=== PATIENT | male | born 1960 | race Caucasian/White ===

== ENCOUNTER 2020-01-06 09:32 | Outpatient (REF) | payer OTHER, SELFPAY ==
[2020-01-06 11:06] LABS: Alanine Aminotransferase 67 U/L (0-40); Albumin Level 4.5 g/dL (3.5-5.0); Alkaline Phosphatase 61 U/L (39-117); Anion Gap 10 (12-20); Aspartate Amino Transferase 50 U/L (5-37); Bilirubin Total 0.4 mg/dL (0.0-1.0); Blood Urea Nitrogen 7 mg/dL (9-16); Calcium 9.9 mg/dL (8.4-10.2); Carbon Dioxide 32 mmol/L (22-29); Chloride 104 mmol/L (96-108); Cholesterol 158 mg/dL; Estimated Glomerular Filt Rate > 60; Glucose Fasting 125 mg/dL (60-99); HDL Cholesterol 34 mg/dL; LDL Cholesterol Calculated 87 mg/dl; Potassium 4.9 mmol/l (3.3-5.1); Sodium 141 mmol/L (135-145); Total Protein 7.3 g/dL (6.5-8.0); Triglycerides 186 mg/dL
[2020-01-06 11:42] LABS: Prostate Specific Antigen 4.89 ng/mL (<0.05-4.0)
[2020-01-06 12:07] LABS: Glucose Urine UA NEG (NEG); Leukocyte Esterase Urine NEG (NEG); Nitrite Urine NEG (NEG); Urine Blood NEG (NEG); Urine Ketones NEG (NEG); Urine Protein NEG (NEG-TRACE)
[2020-01-06 12:18] LABS: Appearance Urine CLEAR; Color Urine YELLOW
== END 2020-01-06 09:33 | disposition home or self-care (01) ==
LOC: HO.LAB 09:32
PROVIDERS: PCP Internal Medicine; Visit Provider Internal Medicine
DX: E66.1 Drug-induced obesity (principal); Z00.00 Encounter for general adult medical examination without abnormal findings; E78.6 Lipoprotein deficiency; D72.820 Lymphocytosis (symptomatic); C18.9 Malignant neoplasm of colon, unspecified; E83.52 Hypercalcemia; E78.00 Pure hypercholesterolemia, unspecified; K21.00 Gastro-esophageal reflux disease with esophagitis, without bleeding; Z86.711 Personal history of pulmonary embolism; Z13.31 Encounter for screening for depression; N40.0 Benign prostatic hyperplasia without lower urinary tract symptoms
CPT/HCPCS: 80053; 80061; 81003; 84153

== ENCOUNTER 2020-01-20 07:56 | Outpatient (REF) | payer OTHER, SELFPAY ==
--- NOTE | 2020-01-20 08:01 | US_ITS ---
EXAMINATION: US RETROPERITONEAL LIMITED (RENAL ONLY) CLINICAL INFORMATION: Malignant neoplasm of right kidney. COMPARISON: Renal ultrasound 07/22/2019. CT abdomen 04/02/2019. Ultrasound abdomen complete 07/16/2018. X-ray abdomen 03/12/2012 and 03/10/2012. MRI abdomen 02/15/2012. TECHNIQUE: Real-time imaging of the kidneys. FINDINGS: RIGHT KIDNEY: 11.5 x 5.4 x 5.3 cm (SAG x AP x TRV). The kidney is normal in size, contour, and echogenicity. Renal cortical thickness is normal. No calculi or focal parenchymal lesions. No hydronephrosis. There are multiple echogenic foci, likely vascular calcifications. LEFT KIDNEY: 12.1 x 6.9 x 7.0 cm (SAG x AP x TRV). The kidney is normal in size, contour, and echogenicity. Renal cortical thickness is normal. No calculi or focal parenchymal lesions. No hydronephrosis. There are multiple echogenic foci, question vascular calcifications. US/US renal BI IMPRESSION: Unremarkable renal ultrasound except for multiple echogenic vascular calcifications.
== END 2020-01-20 07:57 | disposition home or self-care (01) ==
LOC: HO.US 07:56
PROVIDERS: Visit Provider Urology
DX: C64.1 Malignant neoplasm of right kidney, except renal pelvis (principal)
CPT/HCPCS: 76775

== ENCOUNTER 2020-01-20 12:41 | Emergency (ER) | payer OTHER, SELFPAY ==
--- NOTE | 2020-01-20 12:43 | ED.CHESTPAIN ---
HPI - Chest Pain General Chief Complaint: Chest Pain Stated Complaint: CP Time Seen by Provider: 01/20/20 12:43 Source: patient and EMS Mode of arrival: EMS Limitations: no limitations History of Present Illness MD complaint: chest pain Onset (ago): hour(s) (started at 630am) Timing of current episode: constant Prior episodes: No Onset: during rest Pain location: left chest Pain radiation: left arm Severity: moderate Quality: heaviness Relieving factors: nothing Exacerbating factors: nothing Treatment prior to arrival: aspirin Related Data Allergies Allergy/AdvReac Type Severity Reaction Status Date / Time haloperidol [From HALDOL] Allergy Unknown UNKNOWN Unverified 12/03/19 15:27 Helidac Allergy Unknown seizure Uncoded 07/28/19 00:00 and stiffness Review of Systems Review of Systems: Constitutional : No Weight loss, No Fever, No Chills ENT/Mouth : No sore throat, No Rhinorrhea Eyes: No Eye Pain, No Swelling Cardiovascular : pos Chest Pain, no SOB, no Dyspnea on Exertion, No Orthopnea, No Edema, No Palpitations Respiratory : No Cough, No Sputum Gastrointestinal : pos Nausea, No Vomiting, No Diarrhea, No abdominal Pain, No Hematochezia, No Melena Genitourinary : No Dysuria, No Urinary Frequency Musculoskeletal : No joint pain, No Myalgias, No Joint Swelling Skin : No Skin Lesions, No rash Neuro : No Weakness, No Numbness, No Dizziness, No Headache Psych : No Anxiety/Panic, No Depression Heme/Lymph: No Bruising, No Lymphadenopathy Endocrine : No Polyuria, No Polydipsia All other systems reviewed and are negative [facility] Past Medical History Attestation statement: The following information was validated with the patient. Source: old records reviewed Medical History (Updated 01/20/20 @ 16:03 by Hoa Cain DO) Depression GERD (gastroesophageal reflux disease) Hernia HTN (hypertension) Schizophrenia Social History Social History (Updated 01/20/20 @ 12:45 by Hoa Cain DO) Alcohol intake: never Smoking Status: Never smoker Use of substances other than those prescribed or required for medical reasons: No Advance Directives: Yes Advance Directives Information Provided: Yes Advance Directives on File: No Physical Exam Vital Signs: Vital Signs: Vital Signs Temp Pulse Resp BP Pulse Ox 01/20/20 14:09 59 16 104/66 97 01/20/20 12:48 98.6 F 55 18 124/76 100 Body Mass Index 28.8 Appearance: Alert. Oriented X3. No acute distress. Eyes: Pupils equal, round and reactive to light. ENT: Pharynx normal. Neck: Normal inspection. Neck supple. CVS: Normal heart rate and rhythm. Pulses normal. Respiratory: No respiratory distress. Breath sounds normal. Abdomen: Soft and nontender. Skin: Skin warm and dry. Normal skin color. Normal skin turgor. Extremities: No lower extremity edema. No calf ttp Neuro: Oriented X 3. No motor deficit. No sensory deficit. Course Course Course Narrative: if repeat troponin negative anticipate DC home, in no distress MDM - Chest Pain MDM Narrative Medical decision making narrative: 59 yo male with hx of schizophrenia here with chest pain since 6am no associated symptoms given ASA en route, no hypoxia/tachycardia or signs of DVT to suggest PE at this time will obtain labs, EKG, CXR, troponin, SL nitro - dispo per results and findings Lab Data Result diagrams: 01/20/20 13:28 01/20/20 13:28 Labs: Lab Results 01/20/20 01/20/20 01/20/20 Range/Units 13:28 13:28 13:28 WBC 8.9 (4.8-10.8) X10*3/uL RBC 4.23 L (4.60-5.80) X10*6/uL Hgb 13.0 L (14.0-18.0) g/dl Hct 41.9 L (42-52) % MCV 99.1 H (80-98) fL MCH 30.7 (27.0-33.0) pg MCHC 31.0 (31.0-36.0) g/dl RDW 13.5 (11.0-16.0) % Plt Count 192 (160-400) X10*3/uL MPV 9.2 L (9.4-12.4) fL Immature Gran % (Auto) 0.2 (0.0-0.4) % Neut % (Auto) 58.9 (45-73) % Lymph % (Auto) 29.4 (20-40) % [place] % (Auto) 7.0 (2-11) % Eos % (Auto) 4.1 H (0-4) % Baso % (Auto) 0.4 (0-2) % Lymph # (Auto) 2.6 (1.2-4.9) X10*3/uL [place] # (Auto) 0.6 (0.1-1.2) X10*3/uL Eos # (Auto) 0.4 (0.0-0.4) X10*3/uL Baso # (Auto) 0.0 (0.0-0.2) X10*3/uL Abs Immat Gran (auto) 0.02 (0.00-0.03) X10*3/uL Absolute Neuts (auto) 5.3 (2.0-8.3) X10*3/uL Absolute Nucleated RBC 0.000 (0.0-0.012) X10*3/uL Nucleated RBC % (auto) 0.0 (0.0-0.2) /100WBC Hold Blue Top SEE NOTE Sodium 139 (135-145) mmol/L Potassium 4.6 (3.3-5.1) mmol/l Chloride 104 (96-108) mmol/L Carbon Dioxide 29 (22-29) mmol/L Anion Gap 11 L (12-20) BUN 8 L (9-16) mg/dL Creatinine 1.03 (0.5-1.4) mg/dL Estim Creat Clear Calc 83.4 Estimated GFR > 60 Random Glucose 92 (60-115) mg/dL Calcium 8.8 (8.4-10.2) mg/dL Magnesium (1.6-2.6) mg/dL Total Bilirubin (0.0-1.0) mg/dL Direct Bilirubin (0.0-0.5) mg/dL AST (5-37) U/L ALT (0-40) U/L Alkaline Phosphatase (39-117) U/L Troponin I High Sens (<3.5-35.0) ng/L Total Protein (6.5-8.0) g/dL Albumin (3.5-5.0) g/dL Lipase 28 (8-78) U/L 01/20/20 01/20/20 01/20/20 Range/Units 13:28 13:28 15:46 WBC (4.8-10.8) X10*3/uL RBC (4.60-5.80) X10*6/uL Hgb (14.0-18.0) g/dl Hct (42-52) % MCV (80-98) fL MCH (27.0-33.0) pg MCHC (31.0-36.0) g/dl RDW (11.0-16.0) % Plt Count (160-400) X10*3/uL MPV (9.4-12.4) fL Immature Gran % (Auto) (0.0-0.4) % Neut % (Auto) (45-73) % Lymph % (Auto) (20-40) % [place] % (Auto) (2-11) % Eos % (Auto) (0-4) % Baso % (Auto) (0-2) % Lymph # (Auto) (1.2-4.9) X10*3/uL [place] # (Auto) (0.1-1.2) X10*3/uL Eos # (Auto) (0.0-0.4) X10*3/uL Baso # (Auto) (0.0-0.2) X10*3/uL Abs Immat Gran (auto) (0.00-0.03) X10*3/uL Absolute Neuts (auto) (2.0-8.3) X10*3/uL Absolute Nucleated RBC (0.0-0.012) X10*3/uL Nucleated RBC % (auto) (0.0-0.2) /100WBC Hold Blue Top Sodium (135-145) mmol/L Potassium (3.3-5.1) mmol/l Chloride (96-108) mmol/L Carbon Dioxide (22-29) mmol/L Anion Gap (12-20) BUN (9-16) mg/dL Creatinine (0.5-1.4) mg/dL Estim Creat Clear Calc Estimated GFR Random Glucose (60-115) mg/dL Calcium (8.4-10.2) mg/dL Magnesium 2.6 (1.6-2.6) mg/dL Total Bilirubin 0.7 (0.0-1.0) mg/dL Direct Bilirubin 0.3 (0.0-0.5) mg/dL AST 36 (5-37) U/L ALT 59 H (0-40) U/L Alkaline Phosphatase 55 (39-117) U/L Troponin I High Sens < 3.5 < 3.5 (<3.5-35.0) ng/L Total Protein 7.0 (6.5-8.0) g/dL Albumin 4.4 (3.5-5.0) g/dL Lipase (8-78) U/L ECG Data ECG #1: Attestation: I personally reviewed and interpreted this ECG as follows: ECG interpretation date: 01/20/20 ECG interpretation time: 12:52 Interpretation: Rate: 58 Rhythm: sinus bradycardia [place]: left Normal P waves. Normal MIC. RBBB ST T wave : nonspecific qTC: normal prior studies: no change 2018 no ischemia The study has been interpreted contemporaneously by me. . Discharge Plan Discharge Clinical Impression: Atypical chest pain Patient Disposition: Home, Self-Care Instructions: Chest Pain (ED) Additional Instructions: return to ED for any worsening symptoms or concerns Referrals: Angelo Higginbotham MD [Primary Care Provider] - 2 days (if not better)
[2020-01-20 12:48] VITALS: BP 124/76; PULSE 55; RESP 18; TEMP 37; O2SAT 100; BMI 28.8
--- NOTE | 2020-01-20 12:51 | XR_ITS ---
EXAMINATION: XR CHEST CLINICAL INFORMATION: Pain. COMPARISON: None TECHNIQUE: Frontal view of the chest was obtained. FINDINGS: The lungs are well-expanded and clear of acute process. The heart size and pulmonary vasculature is normal. There is mild spondylosis dorsal spine. No lytic process seen. XR/XR chest 1V IMPRESSION: No acute cardiopulmonary process seen.
[2020-01-20 13:36] LABS: MANUAL DIFF FLAG NO
[2020-01-20 13:38] LABS: Basophils Percent Auto 0.4 % (0-2); Eosinophils Absolute Auto 0.4 X10*3/uL (0.0-0.4); Eosinophils Percent Auto 4.1 % (0-4); Hematocrit 41.9 % (42-52); Imm Gran Abs Auto 0.02 X10*3/uL (0.00-0.03); Imm Gran Pct Auto 0.2 % (0.0-0.4); Lymphocytes Absolute Auto 2.6 X10*3/uL (1.2-4.9); Lymphocytes Percent Auto 29.4 % (20-40); Mean Corpuscular Hemoglobin 30.7 pg (27.0-33.0); Mean Corpuscular Volume 99.1 fL (80-98); Mean Platelet Volume 9.2 fL (9.4-12.4); Monocytes Absolute Auto 0.6 X10*3/uL (0.1-1.2); Neutrophils Absolute Auto 5.3 X10*3/uL (2.0-8.3); Neutrophils Percent Auto 58.9 % (45-73); Platelet Count 192 X10*3/uL (160-400); Red Blood Count 4.23 X10*6/uL (4.60-5.80); Red Cell Distribution Width 13.5 % (11.0-16.0); White Blood Count 8.9 X10*3/uL (4.8-10.8)
[2020-01-20 14:07] LABS: Alanine Aminotransferase 59 U/L (0-40); Albumin Level 4.4 g/dL (3.5-5.0); Alkaline Phosphatase 55 U/L (39-117); Aspartate Amino Transferase 36 U/L (5-37); Bilirubin Direct 0.3 mg/dL (0.0-0.5); Bilirubin Total 0.7 mg/dL (0.0-1.0); Magnesium 2.6 mg/dL (1.6-2.6)
[2020-01-20 14:08] LABS: Anion Gap 11 (12-20); Blood Urea Nitrogen 8 mg/dL (9-16); Calcium 8.8 mg/dL (8.4-10.2); Carbon Dioxide 29 mmol/L (22-29); Chloride 104 mmol/L (96-108); Creatinine Clr Calc Pharmacy 83.4; Estimated Glomerular Filt Rate > 60; Glucose Random 92 mg/dL (60-115); Lipase 28 U/L (8-78); Potassium 4.6 mmol/l (3.3-5.1); Sodium 139 mmol/L (135-145)
[2020-01-20 14:09] VITALS: BP 104/66; PULSE 59; RESP 16; O2SAT 97
[2020-01-20 14:09] LABS: Troponin-I High Sensitivity < 3.5 ng/L (<3.5-35.0)
--- NOTE | 2020-01-20 14:32 | PC.NURSE ---
Phone Number Worker: Lucita [phone] for discharge orange picker
[2020-01-20] MEDS: Acetaminophen 325 MG TABLET 650 MG PO (15:32)
[2020-01-20 16:19] LABS: Troponin-I High Sensitivity < 3.5 ng/L (<3.5-35.0)
--- NOTE | 2020-01-21 | ECG_ITS ---
Test Reason : CHEST PAIN Blood Pressure : / mmHG Vent. 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 rate has decreased BY 52 BPM QRS duration has increased Referred By: Hoa Cain Electronically Signed By:SHANICE LLANES MD
== END 2020-01-20 16:41 | disposition home or self-care (01) ==
PROVIDERS: Emergency Provider Emergency Medicine; PCP Internal Medicine
DX: R07.9 Chest pain, unspecified (principal); M79.602 Pain in left arm
CPT/HCPCS: 36415; 71045; 80048; 80076; 83690; 83735; 84484; 85025; 93005; 96374; 99284

== ENCOUNTER → 2020-01-28 10:58 | Outpatient (BNVA) | payer OTHER, SELFPAY | PROVIDERS: PCP Internal Medicine; Visit Provider Urology | DX: Z76.89 Persons encountering health services in other specified circumstances (principal) | CPT/HCPCS: 99212 ==

== ENCOUNTER 2020-04-04 11:02 | Outpatient (REF) | payer OTHER, SELFPAY ==
[2020-04-04 12:04] LABS: Lithium 0.28 mmol/L (0.60-1.20)
[2020-04-04 12:10] LABS: Anion Gap 11 (12-20); Blood Urea Nitrogen 8 mg/dL (9-16); Calcium 9.4 mg/dL (8.4-10.2); Carbon Dioxide 29 mmol/L (22-29); Chloride 106 mmol/L (96-108); Estimated Glomerular Filt Rate > 60; Glucose Random 85 mg/dL (60-115); Potassium 3.9 mmol/l (3.3-5.1); Sodium 142 mmol/L (135-145)
== END 2020-04-04 11:03 | disposition home or self-care (01) ==
LOC: HO.LAB 11:02
PROVIDERS: PCP Internal Medicine; Visit Provider Psychiatry & Neurology Psychiatry
DX: Z79.899 Other long term (current) drug therapy (principal)
CPT/HCPCS: 36415; 80048; 80178

== ENCOUNTER 2020-04-17 07:00 | Inpatient (IN) | payer OTHER, SELFPAY ==
[2020-04-17] VITALS (10 sets, daily range): BP systolic 109–124; BP diastolic 76–88; PULSE 73–97; RESP 18–24; TEMP 36.2–36.6; O2SAT 96–98
--- NOTE | ~2020-04-17 | XR_ITS ---
EXAMINATION: CHEST 1 VIEW CLINICAL INFORMATION: Fever. COMPARISON: 04/17/20. TECHNIQUE: An AP view of the chest is provided. FINDINGS: The cardiac silhouette is stable. The mediastinal and hilar contours are unremarkable. There are neither pleural effusions nor pneumothoraces. There are no consolidations. The osseous structures are stable. XR/XR chest 1V IMPRESSION: No evidence for acute disease.
--- NOTE | ~2020-04-17 | FL_ITS ---
EXAMINATION: XR BARIUM SWALLOW CLINICAL INFORMATION: History of esophageal stricture with swallowing difficulty COMPARISON: None TECHNIQUE: Modified esophagram with speech pathologist FINDINGS: Patient swallowed combination of consistencies from thin liquid to barium coated cookie. Patient swallowed without difficulty. There is no evidence of nasopharyngeal reflux or tracheal aspiration. No laryngeal penetration. FLUOROSCOPY TIME: 2.5 minutes DOSE AREA PRODUCT: 3.146 zulema per centimeter squared FL/FL barium swallow modified IMPRESSION: No significant abnormality identified on modified barium swallow. Please refer to speech pathology report for details.
--- NOTE | 2020-04-17 07:27 | XR_ITS ---
EXAMINATION: XR CHEST CLINICAL INFORMATION: Mental status change. COMPARISON: 01/20/2020 TECHNIQUE: AP portable view of the chest FINDINGS: Lungs are clear. No consolidation, pneumothorax, or pleural effusion. Cardiac and mediastinal contours are normal. Pulmonary vasculature is unremarkable. Osseous structures are unremarkable. XR/XR chest 1V IMPRESSION: No acute cardiopulmonary findings
--- NOTE | 2020-04-17 07:27 | ECG_ITS ---
Test Reason : MEDCLEARANCE Blood Pressure : / mmHG Vent. 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
--- NOTE | 2020-04-17 07:27 | CT_ITS ---
CT HEAD WITHOUT IV CONTRAST INDICATION: Altered mental status. COMPARISON: Brain MRI 01/16/2018. TECHNIQUE: Multidetector CT acquisitions of the head was obtained without IV contrast. This CT examination was performed using dose optimization techniques as appropriate, variously including the following: *Automated exposure control *Adjustment of mA and/or kV according to patient size (this includes techniques or standardized protocols for targeted exams where dose is matched to indication/reason for exam; i.e. extremities or head) *Use of iterative reconstruction technique FINDINGS: There is no intracranial hemorrhage, hydrocephalus, extra-axial surface collection, midline shift, or other herniation pattern. [place] to white matter differentiation is diffusely maintained without evidence of an evolved acute territorial infarct. The basilar cisterns are preserved. No significant soft tissue abnormality. No acute osseous abnormality. There are a few ethmoid air cells opacified bilaterally. There is mild mucosal thickening within the right maxillary sinus. Mild mucosal thickening within the frontal sinuses bilaterally. Mastoid air cells are clear. CT/CT head/brain wo con IMPRESSION: No acute intracranial findings. Sinus disease as described.
--- NOTE | 2020-04-17 07:30 | PC.NURSE ---
Pt arrived via ems speech rambling, tangential, pt alert, oriented x3, mood labile. Dr Gee in to evaluate.
--- NOTE | 2020-04-17 07:35 | ED_ITS ---
HPI - General Adult General Chief complaint: Psychiatric Symptoms Stated complaint: FOUND BY POLICE TALKING NONSENSE/RAMBLING Time Seen by Provider: 04/17/20 07:27 Source: patient and EMS Mode of arrival: EMS Limitations: altered mental status History of Present Illness HPI narrative: 60-year-old male with history of paraneoplastic syndrome, schizoaffective disorder, renal cell carcinoma, anemia, hyperammonemia. Patient was found wandering in the street arguing with himself, neighbors called the police who sent the patient to the ED, patient is awake and alert and oriented, patient speaks with pressured speech, not answering question appropriately, patient is hallucinating, [facility] and personnel who is familiar with the patient (seen him in a different facility) said he is all was acting like this if he is off his psych medicines (Depakote and lithium) Related Data Home Medications Medication Instructions Recorded Confirmed lithium carbonate 150 mg capsule 150 mg PO PRN 01/28/20 01/28/20 olanzapine 10 mg tablet 10 mg PO BEDTIME 01/28/20 01/28/20 trazodone 100 mg tablet 100 mg PO BEDTIME PRN 01/28/20 01/28/20 Previous Rx's Medication Instructions Recorded finasteride 5 mg tablet 5 mg PO DAILY 90 Days #90 tab 01/28/20 Allergies Allergy/AdvReac Type Severity Reaction Status Date / Time haloperidol [From HALDOL] Allergy Unknown UNKNOWN Unverified 12/03/19 15:27 Helidac Allergy Unknown seizure Uncoded 07/28/19 00:00 and stiffness Review of Systems Review of Systems: Yes Unobtainable due to mental status (Unable to obtain meaningful history.) [facility] Past Medical History Medical History Depression GERD (gastroesophageal reflux disease) Hernia HTN (hypertension) Schizophrenia Social History Social History Alcohol intake: never Smoking Status: Smoker, status unknown Use of substances other than those prescribed or required for medical reasons: No Advance Directives: No Advance Directives Information Provided: Yes Physical Exam Vital Signs: Vital Signs: Last Vital Signs Temp 97.3 F 04/17/20 07:56 Pulse 83 04/17/20 07:56 Resp 20 04/17/20 08:00 BP 115/88 04/17/20 07:56 Pulse Ox 97 04/17/20 07:56 Body Mass Index 0.0 Vital signs have been reviewed as normal and appeared to be correct. Blood pressure normal. Heart rate normal. Respiration rate normal. Temperature normal. Oxygen saturation normal. Appearance: Alert. Oriented. No acute distress. Head: Normal external exam. Normocephalic. Atraumatic. No Michelle signs noted. No raccoon eyes noted Eyes: PERRLA. EOMI. Conjunctiva and sclera normal. Eyelids normal. ENT: EAC normal. TM's Normal. Pharynx normal. Uvula midline. Moist mucous membranes. No trismus noted. No drooling noted. No muffled voice noted. Neck: Normal inspection. Neck supple. FROM. No adenopathy. Thyroid Normal. No meningeal signs. No neck mass noted. CVS: Normal heart rate and rhythm. Heart sound normal. No murmurs noted. Pulses normal throughout. Respiratory: No respiratory distress. Painless inspiration. Breath sounds normal. No wheezes/rales/rhonchi noted. Chest nontender. No accessory muscle usage noted or decreased air movement noted. Abdomen: Soft and nontender. Bowel sounds normal in all 4 quadrants. No distention noted. No organomegaly noted. No visible injury noted. Back: No CVA tenderness. Full range of motion noted. Skin: Skin warm and dry. Normal skin color. Normal skin turgor. No rashes/lesions/lacerations noted. Extremities: No lower extremity edema. Extremities exhibit normal range of motion. Extremities nontender. Neuro/psych: Oriented. No motor deficit. No sensory deficit. Reflexes normal., patient overall is not rational, speak with pressured speech, unable to give meaningful history. Course Course Course Narrative: 60-year-old male with history of schizoaffective disorder, patient presented after found in the street wandering, patient was acting psychotic feature, medical workup was unremarkable including head CT/chest x-ray/labs. [place] level was subtherapeutic way will load with 150 mg and request [facility] consultation. Medical Decision Making Lab Data Lab results reviewed: Yes I reviewed the patient's lab results. Result diagrams: 04/17/20 07:48 04/17/20 07:50 Labs: Lab Results 04/17/20 04/17/20 04/17/20 Range/Units 07:48 07:48 07:48 WBC 6.6 (4.8-10.8) X10*3/uL RBC 4.03 L (4.60-5.80) X10*6/uL Hgb 12.2 L (14.0-18.0) g/dl Hct 39.6 L (42-52) % MCV 98.3 H (80-98) fL MCH 30.3 (27.0-33.0) pg MCHC 30.8 L (31.0-36.0) g/dl RDW 14.8 (11.0-16.0) % Plt Count 181 (160-400) X10*3/uL MPV 9.6 (9.4-12.4) fL Immature Gran % (Auto) 0.2 (0.0-0.4) % Neut % (Auto) 67.9 (45-73) % Lymph % (Auto) 21.5 (20-40) % [place] % (Auto) 8.8 (2-11) % Eos % (Auto) 1.1 (0-4) % Baso % (Auto) 0.5 (0-2) % Lymph # (Auto) 1.4 (1.2-4.9) X10*3/uL [place] # (Auto) 0.6 (0.1-1.2) X10*3/uL Eos # (Auto) 0.1 (0.0-0.4) X10*3/uL Baso # (Auto) 0.0 (0.0-0.2) X10*3/uL Abs Immat Gran (auto) 0.01 (0.00-0.03) X10*3/uL Absolute Neuts (auto) 4.5 (2.0-8.3) X10*3/uL Absolute Nucleated RBC 0.000 (0.0-0.012) X10*3/uL Nucleated RBC % (auto) 0.0 (0.0-0.2) /100WBC Sodium (135-145) mmol/L Potassium (3.3-5.1) mmol/L Chloride (96-108) mmol/L Carbon Dioxide (22-29) mmol/L Anion Gap (12-20) BUN (9-16) mg/dL Creatinine (0.5-1.4) mg/dL Estim Creat Clear Calc Estimated GFR Random Glucose (60-115) mg/dL Calcium (8.4-10.2) mg/dL Magnesium Total Bilirubin (0.0-1.0) mg/dL Direct Bilirubin (0.0-0.5) mg/dL AST (5-37) U/L ALT (0-40) U/L Alkaline Phosphatase (39-117) U/L Ammonia 33 (13-55) umol/L Troponin I High Sens < 3.5 (<3.5-35.0) ng/L B-Natriuretic Peptide 18 (<100) pg/mL Total Protein (6.5-8.0) g/dL Albumin (3.5-5.0) g/dL Lipase (8-78) U/L Valproic Acid (50.0-100.0) mcg/mL [place] (0.60-1.20) mmol/L Ethyl Alcohol mg/dL COVID-19 ([facility]AVAL) (Negative) COVID-19 Clin Com 04/17/20 04/17/20 04/17/20 Range/Units 07:49 07:49 07:49 WBC (4.8-10.8) X10*3/uL RBC (4.60-5.80) X10*6/uL Hgb (14.0-18.0) g/dl Hct (42-52) % MCV (80-98) fL MCH (27.0-33.0) pg MCHC (31.0-36.0) g/dl RDW (11.0-16.0) % Plt Count (160-400) X10*3/uL MPV (9.4-12.4) fL Immature Gran % (Auto) (0.0-0.4) % Neut % (Auto) (45-73) % Lymph % (Auto) (20-40) % [place] % (Auto) (2-11) % Eos % (Auto) (0-4) % Baso % (Auto) (0-2) % Lymph # (Auto) (1.2-4.9) X10*3/uL [place] # (Auto) (0.1-1.2) X10*3/uL Eos # (Auto) (0.0-0.4) X10*3/uL Baso # (Auto) (0.0-0.2) X10*3/uL Abs Immat Gran (auto) (0.00-0.03) X10*3/uL Absolute Neuts (auto) (2.0-8.3) X10*3/uL Absolute Nucleated RBC (0.0-0.012) X10*3/uL Nucleated RBC % (auto) (0.0-0.2) /100WBC Sodium (135-145) mmol/L Potassium (3.3-5.1) mmol/L Chloride (96-108) mmol/L Carbon Dioxide (22-29) mmol/L Anion Gap (12-20) BUN (9-16) mg/dL Creatinine (0.5-1.4) mg/dL Estim Creat Clear Calc Estimated GFR Random Glucose (60-115) mg/dL Calcium (8.4-10.2) mg/dL Magnesium Cancelled Total Bilirubin (0.0-1.0) mg/dL Direct Bilirubin (0.0-0.5) mg/dL AST (5-37) U/L ALT (0-40) U/L Alkaline Phosphatase (39-117) U/L Ammonia (13-55) umol/L Troponin I High Sens (<3.5-35.0) ng/L B-Natriuretic Peptide (<100) pg/mL Total Protein (6.5-8.0) g/dL Albumin (3.5-5.0) g/dL Lipase (8-78) U/L Valproic Acid 77.1 (50.0-100.0) mcg/mL [place] < 0.10 L (0.60-1.20) mmol/L Ethyl Alcohol < 10 mg/dL COVID-19 ([facility]AVAL) (Negative) COVID-19 Clin Com 04/17/20 04/17/20 04/17/20 Range/Units 07:50 07:50 07:52 WBC (4.8-10.8) X10*3/uL RBC (4.60-5.80) X10*6/uL Hgb (14.0-18.0) g/dl Hct (42-52) % MCV (80-98) fL MCH (27.0-33.0) pg MCHC (31.0-36.0) g/dl RDW (11.0-16.0) % Plt Count (160-400) X10*3/uL MPV (9.4-12.4) fL Immature Gran % (Auto) (0.0-0.4) % Neut % (Auto) (45-73) % Lymph % (Auto) (20-40) % [place] % (Auto) (2-11) % Eos % (Auto) (0-4) % Baso % (Auto) (0-2) % Lymph # (Auto) (1.2-4.9) X10*3/uL [place] # (Auto) (0.1-1.2) X10*3/uL Eos # (Auto) (0.0-0.4) X10*3/uL Baso # (Auto) (0.0-0.2) X10*3/uL Abs Immat Gran (auto) (0.00-0.03) X10*3/uL Absolute Neuts (auto) (2.0-8.3) X10*3/uL Absolute Nucleated RBC (0.0-0.012) X10*3/uL Nucleated RBC % (auto) (0.0-0.2) /100WBC Sodium 142 (135-145) mmol/L Potassium 4.3 (3.3-5.1) mmol/L Chloride 105 (96-108) mmol/L Carbon Dioxide 23 (22-29) mmol/L Anion Gap 18 (12-20) BUN 19 H D (9-16) mg/dL Creatinine 1.20 (0.5-1.4) mg/dL Estim Creat Clear Calc TNP Estimated GFR > 60 Random Glucose 114 (60-115) mg/dL Calcium 9.8 Cancelled (8.4-10.2) mg/dL Magnesium 2.3 Total Bilirubin 0.7 (0.0-1.0) mg/dL Direct Bilirubin 0.4 (0.0-0.5) mg/dL AST 41 H (5-37) U/L ALT 40 (0-40) U/L Alkaline Phosphatase 56 (39-117) U/L Ammonia (13-55) umol/L Troponin I High Sens (<3.5-35.0) ng/L B-Natriuretic Peptide (<100) pg/mL Total Protein 7.7 (6.5-8.0) g/dL Albumin 4.9 (3.5-5.0) g/dL Lipase 19 (8-78) U/L Valproic Acid (50.0-100.0) mcg/mL [place] (0.60-1.20) mmol/L Ethyl Alcohol mg/dL COVID-19 ([facility]AVAL) Negative (Negative) COVID-19 Clin Com See Note Imaging Data Chest x-ray: Radiologist's impression: In the acute cardiopulmonary findings. CT scan - head: Radiologist's impression: No acute pathology. ECG Data Interpretation: Normal sinus rhythm with sinus arrhythmia at 72 beats per minutes, left axis deviation, right bundle-branch block, no ischemic ST-T changes. Discharge Plan Discharge Clinical Impression: Acute psychosis Prescriptions: No Action trazodone 100 mg tablet 100 mg PO BEDTIME PRN (Reason: insomnia) RF: 0 lithium carbonate 150 mg capsule 150 mg PO PRNRF: 0 olanzapine 10 mg tablet 10 mg PO BEDTIME RF: 0 finasteride 5 mg tablet 5 mg PO DAILY 90 Days Qty: 90 RF: 1
[2020-04-17 07:58] LABS: MANUAL DIFF FLAG NO
[2020-04-17 08:00] LABS: Basophils Percent Auto 0.5 % (0-2); Eosinophils Absolute Auto 0.1 X10*3/uL (0.0-0.4); Eosinophils Percent Auto 1.1 % (0-4); Hematocrit 39.6 % (42-52); Hemoglobin 12.2 g/dl (14.0-18.0); Imm Gran Abs Auto 0.01 X10*3/uL (0.00-0.03); Imm Gran Pct Auto 0.2 % (0.0-0.4); Lymphocytes Absolute Auto 1.4 X10*3/uL (1.2-4.9); Lymphocytes Percent Auto 21.5 % (20-40); Mean Corpuscular HGB Conc 30.8 g/dl (31.0-36.0); Mean Corpuscular Hemoglobin 30.3 pg (27.0-33.0); Mean Corpuscular Volume 98.3 fL (80-98); Mean Platelet Volume 9.6 fL (9.4-12.4); Monocytes Absolute Auto 0.6 X10*3/uL (0.1-1.2); Monocytes Percent Auto 8.8 % (2-11); Neutrophils Absolute Auto 4.5 X10*3/uL (2.0-8.3); Neutrophils Percent Auto 67.9 % (45-73); Platelet Count 181 X10*3/uL (160-400); Red Blood Count 4.03 X10*6/uL (4.60-5.80); Red Cell Distribution Width 14.8 % (11.0-16.0); White Blood Count 6.6 X10*3/uL (4.8-10.8)
[2020-04-17 08:14] LABS: COVID-19 Test Negative (Negative)
[2020-04-17 08:16] LABS: Ammonia 33 umol/L (13-55)
[2020-04-17 08:22] LABS: Ethanol < 10 mg/dL
--- NOTE | 2020-04-17 08:24 | PC.NURSE ---
Pt to ct scan w/ security and [facility]
[2020-04-17 08:27] LABS: Alanine Aminotransferase 40 U/L (0-40); Albumin Level 4.9 g/dL (3.5-5.0); Alkaline Phosphatase 56 U/L (39-117); Anion Gap 18 (12-20); Aspartate Amino Transferase 41 U/L (5-37); Bilirubin Direct 0.4 mg/dL (0.0-0.5); Bilirubin Total 0.7 mg/dL (0.0-1.0); Blood Urea Nitrogen 19 mg/dL (9-16); Calcium 9.8 mg/dL (8.4-10.2); Carbon Dioxide 23 mmol/L (22-29); Chloride 105 mmol/L (96-108); Estimated Glomerular Filt Rate > 60; Glucose Random 114 mg/dL (60-115); Lipase 19 U/L (8-78); Magnesium 2.3 mg/dL (1.6-2.6); Potassium 4.3 mmol/L (3.3-5.1); Sodium 142 mmol/L (135-145); Total Protein 7.7 g/dL (6.5-8.0)
[2020-04-17 08:28] LABS: B Type Natriuretic Peptide 18 pg/mL (<100); Troponin-I High Sensitivity < 3.5 ng/L (<3.5-35.0)
[2020-04-17 08:42] LABS: Valproate 77.1 mcg/mL (50.0-100.0)
[2020-04-17 08:56] LABS: Lithium < 0.10 mmol/L (0.60-1.20)
--- NOTE | 2020-04-17 09:04 | PC.NURSE ---
Pt sitting in room, conversing with himself. [facility] faxed.
[2020-04-17] MEDS: OLANZapine 10 MG TABLET PO ×2 (09:35→20:04)
[2020-04-17] MEDS: Lithium Carbonate 300 MG TABLET 150 MG PO (09:35)
--- NOTE | 2020-04-17 09:48 | PC.NURSE ---
Pt in room, conversing out loud. Pt aware that he is in the ED, awaiting crisis and expressed some relief at that fact. Pt cooperative w/ medications, states he has not slept x4 days.
--- NOTE | 2020-04-17 09:49 | PC.NURSE ---
[facility] clinician aware that pt is in ED- unable to get through to [facility] on telephone.
--- NOTE | 2020-04-17 09:54 | PC.NURSE ---
Reached N to confirm receipt of fax.
--- NOTE | 2020-04-17 11:46 | PC.NURSE ---
Pt seen by JAS. Currently in room, talking out loud.
--- NOTE | 2020-04-17 11:58 | PC.NURSE ---
Pt in room, talking to himself. At times loud, speaking in different pitches, high to regular. Pt redirectable when loud.
--- NOTE | 2020-04-17 13:36 | PC.NURSE ---
Pt transferred to room 6 due to volume of self dialogue. Pt appears increasingly anxious, Dr Gee notified.
[2020-04-17] MEDS: LORazepam 1 MG TABLET 2 MG PO (13:54)
--- NOTE | 2020-04-17 14:12 | PC.NURSE ---
pt increasingly loud and verbal. Medicated as ordered w/ ativan. Pt encouraged to void but appears unable to. Pt checked w/ bladder scanner- [address] Gee aware- will monitor, no further orders at this time.[facility] staff Hallie [phone]- called. Stated that pt had been on lithium until 1 week ago when the lithium was d/c due to toxicity. Pt has been med compliant, but has been decompensating since [place] was discontinued. Pt receives VNA services from [facility] ([facility]) but per [facility] staff, pt has been med compliant, taking medications every day.
--- NOTE | 2020-04-17 15:54 | PC.NURSE ---
Pt resting, resp unlabored.
--- NOTE | 2020-04-17 17:00 | PC.NURSE ---
Ster (Health Care Proxy): [phone]) VNA: [facility] [phone].
--- NOTE | 2020-04-17 17:28 | PC.NURSE ---
Pt continues to be drowsy, easily awakened, but returns back to sleep.
--- NOTE | 2020-04-17 17:48 | PC.NURSE ---
Pt awake, then sat himself on floor. Pt encouraged to stand, did so and walked to bathroom- voided. Urine sent to lab to process.
[2020-04-17 17:58] LABS: Glucose Urine UA NEG (NEG); Leukocyte Esterase Urine NEG (NEG); Nitrite Urine NEG (NEG); Urine Blood NEG (NEG); Urine Ketones 40 MG/DL (NEG); Urine Protein NEG (NEG-TRACE)
[2020-04-17 17:59] LABS: Appearance Urine CLEAR; Color Urine YELLOW
[2020-04-17 18:30] LABS: Amphetamine Screen Urine Not Detected (Not Detect); Barbiturates, Urine Not Detected (Not Detect); Benzodiazepines Screen Urine Not Detected (Not Detect); Cannabinoid Screen Urine Not Detected (Not Detect); Cocaine Screen Urine Not Detected (Not Detect); Opiate Screen Urine Not Detected (Not Detect); Phencyclidine Screen Urine Not Detected (Not Detect)
--- NOTE | 2020-04-17 19:56 | PC.NURSE ---
Patient in his room currently, patient was up out of room x 2, patient hyper-verbal, loud, and tangential, denied distress, will continue to monitor.
[2020-04-17] MEDS: traZODone HCL 100 MG TABLET PO (20:04)
[2020-04-17] MEDS: Divalproex Sodium ER 500 MG TAB.ER.24H 1000 MG PO (20:04)
[2020-04-17] MEDS: Metoprolol Tartrate 50 MG TABLET 25 MG PO (20:04)
--- NOTE | 2020-04-17 23:12 | PC.NURSE ---
Patient has been trying slide out of his bed, throwing blankets on the floor, patient redirected with little to no effect, denied distress, will continue to monitor.
--- NOTE | 2020-04-17 23:31 | PC.NURSE ---
Patient complaining of being hot, throwing blankets on the floor repeatedly, patient found repeatedly doing sitting on the floor first then lying and falsely reporting I fell, patient is psychotic, disorganized, and reports multiple complains for attention, will continue to monitor.
[2020-04-18] MEDS: LORazepam 1 MG TABLET 2 MG PO
--- NOTE | 2020-04-18 00:04 | PC.NURSE ---
Patient continues yeeling and screaming, disruptive behavior, little to no redirect-ability, provider notified/ordered Olanzapine 10 mg po and Ativan 2 mg PO/administered as ordered, will continue to monitor.
[2020-04-18 06:00] VITALS: BP 131/73; PULSE 90; RESP 18; TEMP 36.1; O2SAT 99
--- NOTE | 2020-04-18 06:16 | PC.NURSE ---
Patient in bed awake, patient continuously put himself on the floor and falsely report I fell, patient disorganized, self dialogues very loudly, sometime very disruptive required redirection, will continue to monitor.
[2020-04-18 08:48] VITALS: BP 133/76; PULSE 98; RESP 14; TEMP 36.4; O2SAT 98
[2020-04-18 09:23] VITALS: BP 133/76; PULSE 98
[2020-04-18] MEDS: Finasteride 5 MG TABLET PO (09:23)
[2020-04-18] MEDS: Metoprolol Tartrate 50 MG TABLET 25 MG PO ×2 (09:23→21:03)
[2020-04-18 14:00] VITALS: RESP 16
--- NOTE | 2020-04-18 15:33 | PC.NURSE ---
patient yelling in room, redirected to bed at this time. will continue to monitor.
--- NOTE | 2020-04-18 19:08 | PC.NURSE ---
Report received. PT is standing in his room. Self dialoguing, but still calm and cooperative. Waiting to be transferred to .
[2020-04-18 19:45] VITALS: BP 134/87; PULSE 87; TEMP 36.6
[2020-04-18] MEDS: Divalproex Sodium ER 500 MG TAB.ER.24H 1000 MG PO (21:01)
[2020-04-18 21:03] VITALS: BP 134/87; PULSE 87
[2020-04-18] MEDS: traZODone HCL 100 MG TABLET PO (21:03)
[2020-04-18] MEDS: OLANZapine 10 MG TABLET PO ×2 (21:03)
--- NOTE | 2020-04-19 00:27 | PC.ADMIT ---
A white single male aged 60 years was admitted to [facility] at [facility] as a CV following referral from [facility] and [facility]. Pt was hospitalized here on M-5 on 11/15/2017. Pt hospitalized also previously at [facility] on 06/07/2018, and [place] on 06/13/2018. Pt was brought to [facility] via ambulance after being found wandering in the community yelling to himself. Pt was found to be tangential and disorganized. Pt's VNA reported pt had stopped taking lithium one week ago due to toxicity and has been decompensating since. Pt is reported to be far from baseline. Per [facility] report pt transitioned to independent living last year from a [place] [facility] setting. Pt has an apartment in [place], but it is unknown if that housing is stable and if he can return there. In [facility] pt was described as having self dialoguing, loud and at times was screaming. Pt was observed to lower himself to the floor several times in the pod saying afterwards he had fallen. Pt accepts redirection and cuing. Pt was observed in the ED POD to be going in and out of the bathroom frequently and wandering. Pt is cooperative but was unable to participate significantly in admission due to mental status. Pt denies substance use; COLON was negative. Medical issues include: recent surgery followed by rehab, colon cancer, HTN, GERD, , G-tube, headaches, renal cell carcinoma, and perineal plastic syndrome. Pt had head CT and chest -ray taht were negative. Pt was placed on 5-minute safety checks upon arrival. [id number] done and admitting orders obtained. Pt is awake and restless at .
[2020-04-19] MEDS: hydrOXYzine HCL 25 MG TABLET PO (00:31)
[2020-04-19] MEDS: traZODone HCL 50 MG TABLET PO (01:15)
[2020-04-19 05:45] VITALS: BP 133/83; PULSE 84; RESP 18; TEMP 36.4; O2SAT 97
[2020-04-19] MEDS: OLANZapine 5 MG TABLET PO ×3 (07:17→16:34)
[2020-04-19] MEDS: LORazepam 1 MG TABLET PO ×3 (07:18→23:38)
[2020-04-19] MEDS: Finasteride 5 MG TABLET PO (08:22)
[2020-04-19 08:23] VITALS: BP 133/83
[2020-04-19] MEDS: Metoprolol Tartrate 50 MG TABLET 25 MG PO ×2 (08:23→20:19)
--- NOTE | 2020-04-19 10:09 | P.HPPS_ITS ---
HPI Chief Complaint: Bipolar disorder Sources of Information: patient interviewed (attempted, however, pt is very disorganized), chart reviewed and crisis/core team assessment reviewed HPI Narrative: 60 yo male, history of schizoaffective disorder, bipolar type presents via police, EMS. Pt was found in the street, wandering, self- dialoguing, arguing and confused. Pt reportedly was in rehab after surgery, but has been living in a [facility] in [place] since September 2019 and had been transitioning to an independent apartment. Pt recently was reportedly [place] toxic, so last dose of [place] was given on 04/17/20 and pt has been decompensating with the loss of [place]. Pt has no listed providers. Message left for [facility] for information. Pt is a very poor historian. He is labile with speech that is difficult to understand, a word salad quality to content, full range of tone-whisper to shouting, laughing and unmodulated. Pt admitted under a Section XIIB. Past Psychiatric History: IP: Several. [place] 06/03; [place] 2018, [facility] [place] 10/2017; 12/2016 and 09/2015 and 10/2015. Out Pt: No providers listed. Pt giggles when asked. Trials: [facility] [place] [place] MR Review: Klonopin, Clozaril Haldol, Valium [place], Vraylar, Risperdal Medical Evaluation Reviewed: Yes [facility] Medical History (Updated 04/19/20 @ 17:46 by Joya Ridley APRN) Anemia Chronic headaches Colon cancer Depression Encephalopathy Esophageal stricture GERD (gastroesophageal reflux disease) Hernia HTN (hypertension) Hyperammonemia Paraneoplastic syndrome Renal cell carcinoma Schizoaffective disorder, bipolar type Schizophrenia Seizure Syncope Narrative: EKG- hx RBBB with ?inferior infarct. Hx QTc elevation 45-552, currently 464 with sinus arrythmia. No change from 2012. Surgical History (Updated 04/19/20 @ 17:36 by Joya Ridley APRN) H/O hemicolectomy Family History: pt unable to discuss Social History: [facility] transitioning to independent living Substance History: no known history Trauma History: unknown Diagnostics Vital Signs (24Hr): Vital Signs - 24 hr 04/18/20 14:00 04/18/20 19:45 04/18/20 21:03 Temperature 97.8 F Pulse Rate 87 87 Respiratory Rate 16 Blood Pressure 134/87 134/87 Pulse Oximetry 04/19/20 05:45 04/19/20 08:23 Temperature 97.5 F Pulse Rate 84 Respiratory Rate 18 Blood Pressure 133/83 133/83 Pulse Oximetry 97 Body Mass Index 0.0 Labs Results: 04/17/20 07:48 04/17/20 07:50 Labs: Laboratory Results - last 48 hr 04/17/20 04/17/20 17:50 17:50 Urine Color YELLOW Urine Appearance CLEAR Urine pH 6.0 Ur Specific Howard 1.020 Urine Protein NEG Urine Glucose (UA) NEG Urine Ketones 40 Urine Blood NEG Urine Nitrite NEG Ur Leukocyte Esterase NEG Urine Opiates Screen Not Detected Ur Barbiturates Screen Not Detected Ur Phencyclidine Scrn Not Detected Ur Amphetamines Screen Not Detected U Benzodiazepines Scrn Not Detected Urine Cocaine Screen Not Detected U Marijuana (THC) Screen Not Detected Imaging Radiology Impressions: ITS Impressions Chest X-Ray 04/17/20 07:27 IMPRESSION: No acute cardiopulmonary findings Head CT 04/17/20 07:27 IMPRESSION: No acute intracranial findings. Sinus disease as described. Meds/Allergies Meds Home Medications Acetaminophen (Acetaminophen 325 Mg Tablet) 650 mg PO Q6H PRN PRN Reason: Headache/Pain Mild Scale (1-3) Al Hydroxide/Mg Hydroxide (Magnesium Hydrox/Alum Hydrox 30 Ml Oral.Susp) 30 ml PO Q6H PRN PRN Reason: Heartburn/Nausea Divalproex Sodium (Divalproex Sodium Er 500 Mg Tab.Er.24h) 1,000 mg PO BEDTIME DEVONTE Last Admin: 04/18/20 21:01 Dose: 1,000 mg Documented by: Finasteride (Finasteride 5 Mg Tablet) 5 mg PO DAILY DEVONTE Last Admin: 04/19/20 08:22 Dose: 5 mg Documented by: Hydroxyzine HCl (Hydroxyzine Hcl 25 Mg Tablet) 25 mg PO BEDTIME PRN PRN Reason: Anxiety Last Admin: 04/19/20 00:31 Dose: 25 mg Documented by: Lorazepam (Lorazepam 1 Mg Tablet) 1 mg PO Q4H PRN PRN Reason: anxiety/restlessness Last Admin: 04/19/20 16:34 Dose: 1 mg Documented by: Magnesium Hydroxide (Milk Of Magnesia 30 Ml Oral.Susp) 30 ml PO DAILY PRN PRN Reason: Constipation Metoprolol Tartrate (Metoprolol Tartrate 50 Mg Tablet) 25 mg PO BID DEVONTE; Protocol Last Admin: 04/19/20 08:23 Dose: 25 mg Documented by: Olanzapine (Olanzapine 10 Mg Tablet) 10 mg PO BEDTIME DEVONTE Last Admin: 04/18/20 21:03 Dose: 10 mg Documented by: Olanzapine (Olanzapine 5 Mg Tablet) 5 mg PO Q4H PRN PRN Reason: Psychosis,blake Last Admin: 04/19/20 16:34 Dose: 5 mg Documented by: Trazodone HCl (Trazodone Hcl 100 Mg Tablet) 100 mg PO BEDTIME PRN PRN Reason: insomnia Last Admin: 04/18/20 21:03 Dose: 100 mg Documented by: Trazodone HCl (Trazodone Hcl 50 Mg Tablet) 50 mg PO BEDTIME PRN PRN Reason: Insomnia Last Admin: 04/19/20 01:15 Dose: 50 mg Documented by: Allergies Allergies Allergy/AdvReac Type Severity Reaction Status Date / Time haloperidol [From HALDOL] Allergy Unknown UNKNOWN Unverified 12/03/19 15:27 Helidac Allergy Unknown seizure Uncoded 07/28/19 00:00 and stiffness Mental Status Exam Mental Status Exam Patient Appearance: Disheveled, Unkempt and Bizarre Patient Orientation: Person Level of Consciousness: Awake, Disoriented, Restless and Alert Patient Behavior: Talkative, Posturing, Restless, Wandering, Swearing, Anxious, Invasion - Personal Space, Distractible, Confused, Good Eye Contact, Impulsive and Pacing Mood Description: Labile and Expansive Affect Description: Labile and Expansive Patient Cognition Impaired: Yes Ability to Follow Directions: Fair Speech Pattern: Slurred, Perseverating, Impoverished, Difficulty Finding Words, Garbled, Spontaneous Speech, Whisper, Rambling, Mumbled, Cofabulation, Rapid, Excessive, Animated, Loud, Delayed, Pressured, Includes Profanity, Excited, Poor Articulation and Long Pauses Memory Description: Remote Impaired, Immediate Impaired, Episodic Impaired, Recent Impaired and Working Impaired Hallucinations: Auditory Delusions: Ideas of Reference and Bizarre Perceptual Disturbances: Depersonalization and Hallucinations Thought Process: Disoriented, Incoherent, Racing, Illogical, Distracted, Word Salad and Confusion Thought Content: positive for Flight of Ideas, positive for Disoriented, po sitive for Racing, positive for Poverty of Content, positive for Preoccupation, positive for Loose Associations, positive for Thought Blocking and positive for Tangential Depressive Symptoms: Insomnia, Diff. Making Decisions, Increased Irritability, Difficulty Sleeping and Difficulty Concentrating Abnormal Motor Activity Signs and Symptoms: Agitation, Hyperactivity and Restlessness Judgement: Poor Assessment & Plan Assessment & Plan (1) Schizoaffective disorder, bipolar type: Status: Acute Code(s): F25.0 - Schizoaffective disorder, bipolar type Assessment and Plan: -Increase Olanzapine to 15 mg HS. -TSH, B12, Folate, FT4, Vit D, Ammonia -Messages left for [facility] regarding recent [place] toxicity. Informed Consent: does not understand Reason for continued inpatient stay Substantial Risk for: harm to self, harm to others, inability to function, rapid decompensation and med/psych decompensation
[2020-04-19 20:15] VITALS: BP 125/85; PULSE 100; TEMP 36.1
[2020-04-19 20:19] VITALS: BP 132/75; PULSE 100
[2020-04-19] MEDS: Divalproex Sodium ER 500 MG TAB.ER.24H 1000 MG PO (20:19)
[2020-04-19] MEDS: OLANZapine 10 MG TABLET 15 MG PO (20:20)
[2020-04-19] MEDS: traZODone HCL 100 MG TABLET PO (23:38)
[2020-04-20 05:45] VITALS: BP 117/82; PULSE 86; RESP 18; TEMP 36.3; O2SAT 95
[2020-04-20] MEDS: OLANZapine 5 MG TABLET PO (07:08)
[2020-04-20] MEDS: LORazepam 1 MG TABLET PO ×2 (07:08→20:00)
[2020-04-20 08:18] VITALS: BP 117/82
[2020-04-20] MEDS: Metoprolol Tartrate 50 MG TABLET 25 MG PO ×2 (08:18→20:01)
[2020-04-20] MEDS: Finasteride 5 MG TABLET PO (08:18)
--- NOTE | 2020-04-20 08:31 | P.PNPSI_ITS ---
Subjective Subjective Date of Service: 04/20/20 Reason For Visit: Bipolar disorder Subjective Notes: Conditional Voluntary (HCP activated, pt clearer and able to sign in this afternoon, HCP to co-sign) Interim History: Pt continues to be disorganized, places himself on the floor at times and his speech is very difficult to understand. He exhibits poor boundaries at times and is unmodulated. There is some improvement this afternoon. Care discussed with his visiting RN Juli [phone] who reports [place] toxicity [employer]. She was not given any lab results however, just told the new plan was titration of Olanzapine and Valproate. Message left with [facility] as well. Juli requested pt to given the message that she was thinking of him. Pt responded very well to this message, was clearer for a moment, smiled, stating, she is a good friend to me. Pt able to sign a CV this afternoon for Florecita Chacko RN. HCP activated for co-signature. Medication Compliance: Yes Side effects from medications: No Attending Groups: No Review of Systems Reports behavioral changes and Reports confusion Psychiatric: Reports abnormal sleep pattern, Reports behavioral changes, Reports confusion, Reports difficulty concentrating, Reports auditory hallucinations, R eports irritability, Reports mood swings and Reports paranoia Mental Status Exam Mental Status Exam Patient Appearance: Disheveled Patient Orientation: Person Level of Consciousness: Awake and Alert Patient Behavior: Talkative, Hyperactive, Passive, Aggressive, Restless, Belligerent, Wandering, Swearing, Anxious, Fearful, Fatigued, Distractible, Confused, Good Eye Contact, Crying and Pacing Mood Description: Labile Affect Description: Labile Patient Cognition Impaired: Yes Ability to Follow Directions: Fair Speech Pattern: Perseverating, Impoverished, Difficulty Finding Words, Garbled, Spontaneous Speech, Whisper, Rambling, Soft-Spoken, Mumbled, Cofabulation, Rapid , Excessive, Animated, Loud, Pressured, Includes Profanity, Excited and Poor Articulation Memory Description: Remote Impaired and Immediate Impaired Hallucinations: Auditory Delusions: Present Thought Process: Racing, Distracted, Rumination and Word Salad Thought Content: positive for Racing, positive for Perseveration, positive for Loose Associations, positive for Tangential and positive for Disorganized Depressive Symptoms: Increased Irritability, Difficulty Sleeping and Crying Spells Abnormal Motor Activity Signs and Symptoms: Agitation and Restlessness Judgement: Poor Diagnostics Vital Signs (24Hr): Vital Signs - 24 hr 04/19/20 20:15 04/19/20 20:19 04/20/20 05:45 Temperature 97.0 F 97.4 F Pulse Rate 100 100 86 Respiratory Rate 18 Blood Pressure 125/85 132/75 117/82 Pulse Oximetry 95 04/20/20 08:18 Temperature Pulse Rate Respiratory Rate Blood Pressure 117/82 Pulse Oximetry Body Mass Index 0.0 Labs Results: 04/17/20 07:48 04/17/20 07:50 Imaging Radiology Impressions: ITS Impressions Chest X-Ray 04/17/20 07:27 IMPRESSION: No acute cardiopulmonary findings Head CT 04/17/20 07:27 IMPRESSION: No acute intracranial findings. Sinus disease as described. Medications Medications Current Medications Generic Name Dose Route Start Last Admin Trade Name Freq PRN Reason Stop Dose Admin Acetaminophen 650 mg 04/18/20 18:48 Acetaminophen 325 Mg Tablet PO Q6H PRN Headache/Pain Mild Scale (1-3) Al Hydroxide/Mg Hydroxide 30 ml 04/18/20 18:48 Magnesium Hydrox/Alum Hydrox 30 Ml Oral.Susp PO Q6H PRN Heartburn/Nausea Divalproex Sodium 1,000 mg 04/17/20 21:00 04/19/20 20:19 Divalproex Sodium Er 500 Mg Tab.Er.24h PO 1,000 mg BEDTIME DEVONTE Administration Finasteride 5 mg 04/17/20 14:00 04/20/20 08:18 Finasteride 5 Mg Tablet PO 5 mg DAILY DEVONTE Administration Hydroxyzine HCl 25 mg 04/18/20 18:48 04/19/20 00:31 Hydroxyzine Hcl 25 Mg Tablet PO 25 mg BEDTIME PRN Administration Anxiety Lorazepam 1 mg 04/19/20 07:02 04/20/20 07:08 Lorazepam 1 Mg Tablet PO 1 mg Q4H PRN Administration anxiety/restlessness Magnesium Hydroxide 30 ml 04/18/20 18:48 Milk Of Magnesia 30 Ml Oral.Susp PO DAILY PRN Constipation Metoprolol Tartrate 25 mg 04/17/20 14:00 04/20/20 08:18 Metoprolol Tartrate 50 Mg Tablet PO 25 mg BID DEVONTE Administration Protocol Olanzapine 5 mg 04/19/20 07:01 04/20/20 07:08 Olanzapine 5 Mg Tablet PO 5 mg Q4H PRN Administration Psychosis,blake Olanzapine 15 mg 02/02/21 21:00 04/19/20 20:20 Olanzapine 10 Mg Tablet PO 15 mg BEDTIME DEVONTE Administration Trazodone HCl 100 mg 04/17/20 13:50 04/19/20 23:38 Trazodone Hcl 100 Mg Tablet PO 100 mg BEDTIME PRN Administration insomnia Trazodone HCl 50 mg 04/19/20 00:56 04/19/20 01:15 Trazodone Hcl 50 Mg Tablet PO 50 mg BEDTIME PRN Administration Insomnia Allergies Allergies Allergy/AdvReac Type Severity Reaction Status Date / Time haloperidol [From HALDOL] Allergy Unknown UNKNOWN Unverified 12/03/19 15:27 Helidac Allergy Unknown seizure Uncoded 07/28/19 00:00 and stiffness Assessment & Plan Assessment & Plan (1) Schizoaffective disorder, bipolar type: Status: Acute Code(s): F25.0 - Schizoaffective disorder, bipolar type Assessment and Plan: Continue current regime. HCP activated. Greater than 50% of the session was spent on counseling and/or coordination of care Reason for contiued inpatient stay Substantial Risk for: harm to self, harm to others, inability to function and rapid decompensation
[2020-04-20 08:42] LABS: Ammonia 36 umol/L (13-55)
[2020-04-20 09:33] LABS: TSH reflex Free T4 1.09 uIU/mL (0.32-4.0); Thyroid Stimulating Hormone 1.09 uIU/mL (0.32-4.0)
[2020-04-20 09:49] LABS: Folate 13.2 ng/mL (> or = 4.0); Vitamin B12 327 pg/mL (200-900)
[2020-04-20 18:00] VITALS: BP 119/72; PULSE 101; TEMP 36.5
[2020-04-20 18:54] LABS: Vitamin D 25-OH Total 10.2 ng/mL (>30)
[2020-04-20 20:01] VITALS: BP 119/72; PULSE 101
[2020-04-20] MEDS: traZODone HCL 100 MG TABLET PO (20:01)
[2020-04-20] MEDS: OLANZapine 10 MG TABLET 15 MG PO (20:02)
[2020-04-20] MEDS: hydrOXYzine HCL 25 MG TABLET PO (20:03)
[2020-04-20] MEDS: Divalproex Sodium ER 500 MG TAB.ER.24H 1000 MG PO (20:03)
[2020-04-21 06:00] VITALS: BP 112/84; PULSE 101; TEMP 36.2; O2SAT 98
[2020-04-21] MEDS: Finasteride 5 MG TABLET PO (09:23)
[2020-04-21 09:28] VITALS: BP 112/84; PULSE 101
[2020-04-21] MEDS: Metoprolol Tartrate 50 MG TABLET 25 MG PO (09:28)
--- NOTE | 2020-04-21 14:37 | HO.PSYCHPN ---
Subjective Subjective Date of Service: 04/21/20 Reason For Visit: Bipolar disorder Subjective Notes: Conditional Voluntary (HCP activated) Interim History: Presents with lability, some moments of clarity, psychotic. Brief interactions with pt, again some brief clarity. Medication Compliance: Yes Side effects from medications: No Attending Groups: No Review of Systems Reports behavioral changes and Reports confusion Psychiatric: Reports abnormal sleep pattern, Reports behavioral changes, Reports confusion, Reports difficulty concentrating, Reports auditory hallucinations, Reports irritability, Reports mood swings, Reports paranoia and Reports suicidal ideation ( no ) Mental Status Exam Mental Status Exam Patient Appearance: Disheveled, Unkempt and Bizarre Patient Orientation: Person Level of Consciousness: Awake, Disoriented, Restless and Alert Patient Behavior: Talkative, Posturing, Hyperactive, Cooperative, Suspicious, Restless, Belligerent, Wandering, Verbal Threats, Swearing, Anxious, Distractible, Confused, Good Eye Contact, Uncooperative, Impulsive and Pacing Mood Description: Suspicious, Withdrawn, Hostile, Labile, Angry and Nervous Affect Description: Labile Patient Cognition Impaired: Yes Ability to Follow Directions: Fair Speech Pattern: Slurred, Perseverating, Impoverished, Difficulty Finding Words, Garbled, Spontaneous Speech, Whisper, Rambling, Soft-Spoken, Mumbled, Cofabulation, Rapid, Inappropriate, Excessive, Animated, Loud, Pressured, Includes Profanity, Excited and Poor Articulation Memory Description: Remote Impaired, Immediate Impaired, Bias Machine Operator Impaired, Episodic Impaired and Working Impaired Hallucinations: Auditory Delusions: Grandiose Thought Process: Disoriented, Racing, Illogical, Distracted and Word Salad Thought Content: positive for Flight of Ideas, positive for Racing, positive for Circumstantial, positive for Poverty of Content, positive for Loose Associations, positive for Thought Blocking, positive for Incoherent, positive for Tangential, positive for Disorganized, positive for Suicidal Ideation (denies) and positive for Homicidal Ideation (denies) Depressive Symptoms: Increased Irritability, Difficulty Sleeping, Thoughts of /Suicide (denies) and Difficulty Concentrating Abnormal Motor Activity Signs and Symptoms: Agitation and Restlessness Judgement: Poor Diagnostics Vital Signs (24Hr): Vital Signs - 24 hr 04/20/20 18:00 04/20/20 20:01 04/21/20 06:00 Temperature 97.7 F 97.1 F Pulse Rate 101 H 101 H 101 H Blood Pressure 119/72 119/72 112/84 Pulse Oximetry 98 04/21/20 09:28 Temperature Pulse Rate 101 H Blood Pressure 112/84 Pulse Oximetry Body Mass Index 0.0 Labs Results: 04/17/20 07:48 04/17/20 07:50 Labs: Laboratory Results - last 48 hr 04/20/20 04/20/20 04/20/20 07:54 07:54 07:54 Ammonia 36 Vitamin B12 327 25-OH Vitamin D Total Folate 13.2 TSH 1.09 04/20/20 04/20/20 07:54 07:54 Ammonia Vitamin B12 25-OH Vitamin D Total 10.2 Folate TSH 1.09 Imaging Radiology Impressions: ITS Impressions Chest X-Ray 04/17/20 07:27 IMPRESSION: No acute cardiopulmonary findings Head CT 04/17/20 07:27 IMPRESSION: No acute intracranial findings. Sinus disease as described. Medications Medications Current Medications Generic Name Dose Route Start Last Admin Trade Name Freq PRN Reason Stop Dose Admin Acetaminophen 650 mg 04/18/20 18:48 Acetaminophen 325 Mg Tablet PO Q6H PRN Headache/Pain Mild Scale (1-3) Al Hydroxide/Mg Hydroxide 30 ml 04/18/20 18:48 Magnesium Hydrox/Alum Hydrox 30 Ml Oral.Susp PO Q6H PRN Heartburn/Nausea Divalproex Sodium 1,000 mg 04/17/20 21:00 04/20/20 20:03 Divalproex Sodium Er 500 Mg Tab.Er.24h PO 1,000 mg BEDTIME DEVONTE Administration Finasteride 5 mg 04/17/20 14:00 04/21/20 09:23 Finasteride 5 Mg Tablet PO 5 mg DAILY DEVONTE Administration Hydroxyzine HCl 25 mg 04/18/20 18:48 04/20/20 20:03 Hydroxyzine Hcl 25 Mg Tablet PO 25 mg BEDTIME PRN Administration Anxiety Lorazepam 1 mg 04/19/20 07:02 04/20/20 20:00 Lorazepam 1 Mg Tablet PO 1 mg Q4H PRN Administration anxiety/restlessness Magnesium Hydroxide 30 ml 04/18/20 18:48 Milk Of Magnesia 30 Ml Oral.Susp PO DAILY PRN Constipation Metoprolol Tartrate 25 mg 04/17/20 14:00 04/21/20 09:28 Metoprolol Tartrate 50 Mg Tablet PO 25 mg BID DEVONTE Administration Protocol Olanzapine 5 mg 04/19/20 07:01 04/20/20 07:08 Olanzapine 5 Mg Tablet PO 5 mg Q4H PRN Administration Psychosis,blake Olanzapine 15 mg 04/19/20 21:00 04/20/20 20:02 Olanzapine 10 Mg Tablet PO 15 mg BEDTIME DEVONTE Administration Trazodone HCl 100 mg 04/17/20 13:50 04/20/20 20:01 Trazodone Hcl 100 Mg Tablet PO 100 mg BEDTIME PRN Administration insomnia Trazodone HCl 50 mg 04/19/20 00:56 04/19/20 01:15 Trazodone Hcl 50 Mg Tablet PO 50 mg BEDTIME PRN Administration Insomnia Vitamin D 25 mcg 04/22/20 09:00 Cholecalciferol (Vitamin D3) 25 Mcg Tablet PO DAILY DEVONTE Allergies Allergies Allergy/AdvReac Type Severity Reaction Status Date / Time haloperidol [From HALDOL] Allergy Unknown UNKNOWN Unverified 12/03/19 15:27 Helidac Allergy Unknown seizure Uncoded 07/28/19 00:00 and stiffness Assessment & Plan Assessment & Plan (1) Schizoaffective disorder, bipolar type: Status: Acute Code(s): F25.0 - Schizoaffective disorder, bipolar type Assessment and Plan: -Increase Olanzapine to 20 mg hs -Begin Depakote 250 mg a.m. -Vitamin D supplementation. Greater than 50% of the session was spent on counseling and/or coordination of care Reason for contiued inpatient stay Substantial Risk for: harm to self, inability to function and med/psych decompensation
[2020-04-21 15:21] LABS: Influenza A PCR NEGATIVE (Negative); Influenza B PCR NEGATIVE (Negative); Resp Syncy Virus RNA Qual PCR NEGATIVE (Negative); SARS COV2 PCR INHOUSE NEGATIVE (Negative)
[2020-04-21 18:00] VITALS: BP 112/80; PULSE 85; TEMP 36.4
[2020-04-21] MEDS: OLANZapine 10 MG TABLET 20 MG PO (20:19)
[2020-04-21] MEDS: Divalproex Sodium ER 500 MG TAB.ER.24H 1000 MG PO (20:19)
[2020-04-21 20:40] VITALS: BP 118/53; PULSE 95
[2020-04-22] MEDS: traZODone HCL 100 MG TABLET PO (00:23)
[2020-04-22] MEDS: OLANZapine 5 MG TABLET PO ×2 (00:23→04:27)
[2020-04-22] MEDS: hydrOXYzine HCL 25 MG TABLET PO (00:23)
[2020-04-22] MEDS: LORazepam 1 MG TABLET PO ×2 (04:27→19:28)
[2020-04-22 08:00] VITALS: TEMP 35.9
[2020-04-22] MEDS: Finasteride 5 MG TABLET PO (08:56)
[2020-04-22] MEDS: Cholecalciferol (Vitamin D3) 25 MCG TABLET PO (08:56)
[2020-04-22] MEDS: Divalproex Sodium 250 MG TABLET.DR PO (08:57)
[2020-04-22 09:03] VITALS: BP 149/83; PULSE 102
[2020-04-22] MEDS: Metoprolol Tartrate 50 MG TABLET 25 MG PO ×2 (09:03→20:01)
[2020-04-22] MEDS: Flu Vacc QS2020-21(6mos up)/PF 0.5 ML SYRINGE IM (13:27)
--- NOTE | 2020-04-22 13:31 | PC.NURSE ---
PT RECEIVED FLU SHOT TO RIGHT DELTOID
--- NOTE | 2020-04-22 14:44 | HO.PSYCHPN ---
Subjective Subjective Date of Service: 04/22/20 Reason For Visit: Bipolar disorder Subjective Notes: Conditional Voluntary Interim History: Continues with labile mood and behavior, however calmer, periods where his speech is understood, more attentive to his environment. Call to Dr. Ames [phone]. Message left with team re POC Medication Compliance: Yes Side effects from medications: No Attending Groups: No Review of Systems Cardiovascular: Reports other (hypotensive, metoprolol held this a.m.) Reports behavioral changes and Reports confusion Psychiatric: Reports behavioral changes, Reports confusion, Reports difficulty concentrating, Reports auditory hallucinations, Reports irritability, Reports anhedonia, Reports mood swings, Reports paranoia and Reports homicidal ideation (denies) Mental Status Exam Mental Status Exam Patient Appearance: Disheveled Patient Orientation: Person Level of Consciousness: Awake Patient Behavior: Talkative, Posturing, Cooperative, Suspicious, Restless, Wandering, Anxious, Distractible, Confused and Pacing Mood Description: Calm, Euphoric, Happy, Suspicious, Withdrawn, Constricted, Relaxed, Hostile, Cheerful, Anxious, Labile, Angry, Nervous and Apprehensive Affect Description: Labile Patient Cognition Impaired: Yes Ability to Follow Directions: Fair Speech Pattern: Perseverating, Difficulty Finding Words, Garbled, Spontaneous Speech, Rambling, Mumbled, Cofabulation, Rapid, Excessive, Animated, Loud, Pressured, Excited and Poor Articulation Memory Description: Remote Impaired, Episodic Impaired and Recent Impaired Hallucinations: Auditory Delusions: Paranoid Ideation and Present Thought Process: Disoriented, Racing, Illogical, Distracted, Rumination, Word Salad and Confusion Thought Content: positive for Flight of Ideas, positive for Racing, positive for Perseveration, positive for Poverty of Content, positive for Loose Associations, positive for Slowed Thinking, positive for Tangential and positive for Suicidal Ideation (denies) Depressive Symptoms: Difficulty Sleeping, Thoughts of /Suicide (denies) and Difficulty Concentrating Abnormal Motor Activity Signs and Symptoms: Agitation and Restlessness Judgement: Poor Diagnostics Vital Signs (24Hr): Vital Signs - 24 hr 04/21/20 18:00 04/21/20 20:40 04/22/20 08:00 Temperature 97.5 F 96.7 F L Pulse Rate 85 95 Blood Pressure 112/80 118/53 L 04/22/20 09:03 Temperature Pulse Rate 102 H Blood Pressure 149/83 H Body Mass Index 0.0 Labs Results: 04/17/20 07:48 04/17/20 07:50 Labs: Laboratory Results - last 48 hr 04/20/20 04/21/20 07:54 13:49 25-OH Vitamin D Total 10.2 Coronavirus (PCR) NEGATIVE Influenza Type A (PCR) NEGATIVE Influenza Type B (PCR) NEGATIVE RSV RNA Qual (PCR) NEGATIVE Imaging Radiology Impressions: ITS Impressions Chest X-Ray 04/17/20 07:27 IMPRESSION: No acute cardiopulmonary findings Head CT 04/17/20 07:27 IMPRESSION: No acute intracranial findings. Sinus disease as described. Medications Medications Current Medications Generic Name Dose Route Start Last Admin Trade Name Freq PRN Reason Stop Dose Admin Acetaminophen 650 mg 04/18/20 18:48 Acetaminophen 325 Mg Tablet PO Q6H PRN Headache/Pain Mild Scale (1-3) Al Hydroxide/Mg Hydroxide 30 ml 04/18/20 18:48 Magnesium Hydrox/Alum Hydrox 30 Ml Oral.Susp PO Q6H PRN Heartburn/Nausea Divalproex Sodium 1,000 mg 04/17/20 21:00 04/21/20 20:19 Divalproex Sodium Er 500 Mg Tab.Er.24h PO 1,000 mg BEDTIME DEVONTE Administration Divalproex Sodium 250 mg 04/22/20 09:00 04/22/20 08:57 Divalproex Sodium 250 Mg Tablet.Dr PO 250 mg DAILY DEVONTE Administration Finasteride 5 mg 04/17/20 14:00 04/22/20 08:56 Finasteride 5 Mg Tablet PO 5 mg DAILY DEVONTE Administration Hydroxyzine HCl 25 mg 04/18/20 18:48 04/22/20 00:23 Hydroxyzine Hcl 25 Mg Tablet PO 25 mg BEDTIME PRN Administration Anxiety Lorazepam 1 mg 04/19/20 07:02 04/22/20 04:27 Lorazepam 1 Mg Tablet PO 1 mg Q4H PRN Administration anxiety/restlessness Magnesium Hydroxide 30 ml 04/18/20 18:48 Milk Of Magnesia 30 Ml Oral.Susp PO DAILY PRN Constipation Metoprolol Tartrate 25 mg 04/17/20 14:00 04/22/20 09:03 Metoprolol Tartrate 50 Mg Tablet PO 25 mg BID DEVONTE Administration Protocol Olanzapine 5 mg 04/19/20 07:01 04/22/20 04:27 Olanzapine 5 Mg Tablet PO 5 mg Q4H PRN Administration Psychosis,blake Olanzapine 20 mg 04/21/20 21:00 04/21/20 20:19 Olanzapine 10 Mg Tablet PO 20 mg BEDTIME DEVONTE Administration Trazodone HCl 100 mg 04/17/20 13:50 04/22/20 00:23 Trazodone Hcl 100 Mg Tablet PO 100 mg BEDTIME PRN Administration insomnia Trazodone HCl 50 mg 04/19/20 00:56 04/19/20 01:15 Trazodone Hcl 50 Mg Tablet PO 50 mg BEDTIME PRN Administration Insomnia Vitamin D 25 mcg 04/22/20 09:00 04/22/20 08:56 Cholecalciferol (Vitamin D3) 25 Mcg Tablet PO 25 mcg DAILY DEVONTE Administration Allergies Allergies Allergy/AdvReac Type Severity Reaction Status Date / Time haloperidol [From HALDOL] Allergy Unknown UNKNOWN Unverified 12/03/19 15:27 Helidac Allergy Unknown seizure Uncoded 07/28/19 00:00 and stiffness Assessment & Plan Assessment & Plan (1) Schizoaffective disorder, bipolar type: Status: Acute Code(s): F25.0 - Schizoaffective disorder, bipolar type Assessment and Plan: Hx of [place] toxicity. Titrating Olanzapine and Valproate. We may need to re-start [place] at a lower dose as this is the medication he has had the best result with. -Labs 04/25/20 CBCD, Valproate, FBS, A1C, Lipids (2) Anemia: Status: Acute Code(s): D64.9 - Anemia, unspecified (3) Renal cancer: Status: Acute Code(s): C64.9 - Malignant neoplasm of unspecified kidney, except renal pelvis (4) BPH w urinary obs/LUTS: Status: Acute Code(s): N40.1 - Benign prostatic hyperplasia with lower urinary tract symptoms; N13.8 - Other obstructive and reflux uropathy Greater than 50% of the session was spent on counseling and/or coordination of care Reason for contiued inpatient stay Substantial Risk for: inability to function, rapid decompensation and med/psych decompensation
[2020-04-22 18:00] VITALS: BP 127/83; PULSE 79; TEMP 36.8
[2020-04-22 20:01] VITALS: BP 127/83; PULSE 79
[2020-04-22] MEDS: Divalproex Sodium ER 500 MG TAB.ER.24H 1000 MG PO (20:01)
[2020-04-22] MEDS: OLANZapine 10 MG TABLET 20 MG PO (20:01)
[2020-04-23] MEDS: LORazepam 1 MG TABLET PO ×2 (02:48→17:51)
[2020-04-23] MEDS: traZODone HCL 100 MG TABLET PO (02:48)
[2020-04-23 06:00] VITALS: BP 105/72; PULSE 87; TEMP 36.7; O2SAT 97
[2020-04-23 08:14] VITALS: BP 105/72; PULSE 87
[2020-04-23] MEDS: Finasteride 5 MG TABLET PO (08:14)
[2020-04-23] MEDS: Divalproex Sodium 250 MG TABLET.DR PO (08:14)
[2020-04-23] MEDS: Cholecalciferol (Vitamin D3) 25 MCG TABLET PO (08:14)
[2020-04-23] MEDS: Metoprolol Tartrate 50 MG TABLET 25 MG PO ×2 (08:14→20:06)
[2020-04-23] MEDS: OLANZapine 5 MG TABLET PO (17:51)
[2020-04-23 18:00] VITALS: BP 134/89; PULSE 88; TEMP 36.8
--- NOTE | 2020-04-23 18:20 | P.PNPSI_ITS ---
Subjective Subjective Date of Service: 04/23/20 Reason For Visit: Bipolar disorder Interim History: Continues with labile mood and behavior. He's disorganized and mumbles. when he is calmer, his speech is more understood and he is able to be more attentive to his environment. He is tolerating the Depakote and zyprexa Review of Systems Review of Systems Yes Unobtainable due to mental status (Unable to obtain meaningful history.) Cardiovascular: Reports other (hypotensive, metoprolol held this a.m.) Reports behavioral changes and Reports confusion Psychiatric: Reports abnormal sleep pattern, Reports behavioral changes, Reports confusion, Reports difficulty concentrating, Reports auditory hallucinations, Reports irritability, Reports anhedonia, Reports mood swings, Reports paranoia, Reports homicidal ideation (denies) and Reports suicidal ideation ( no ) Mental Status Exam Mental Status Exam Patient Appearance: Disheveled Patient Orientation: Person Level of Consciousness: Awake Patient Behavior: Talkative, Posturing, Cooperative, Suspicious, Restless, Wandering, Anxious, Distractible, Confused and Pacing Mood Description: Calm, Euphoric, Happy, Suspicious, Withdrawn, Constricted, Relaxed, Hostile, Cheerful, Anxious, Labile, Angry, Nervous and Apprehensive Affect Description: Labile Patient Cognition Impaired: Yes Ability to Follow Directions: Fair Speech Pattern: Perseverating, Difficulty Finding Words, Garbled, Spontaneous Speech, Rambling, Mumbled, Cofabulation, Rapid, Excessive, Animated, Loud, Pressured, Excited and Poor Articulation Memory Description: Remote Impaired, Episodic Impaired and Recent Impaired Thought Process: Racing and Distracted Thought Content: positive for Flight of Ideas and positive for Racing Judgement: Fair Diagnostics Vital Signs (24Hr): Vital Signs - 24 hr 04/22/20 20:01 04/23/20 06:00 04/23/20 08:14 Temperature 98.0 F Pulse Rate 79 87 87 Blood Pressure 127/83 105/72 105/72 Pulse Oximetry 97 04/23/20 18:00 Temperature 98.2 F Pulse Rate 88 Blood Pressure 134/89 Pulse Oximetry Body Mass Index 0.0 Labs Results: 04/17/20 07:48 04/17/20 07:50 Imaging Radiology Impressions: ITS Impressions Chest X-Ray 04/17/20 07:27 IMPRESSION: No acute cardiopulmonary findings Head CT 04/17/20 07:27 IMPRESSION: No acute intracranial findings. Sinus disease as described. Medications Medications Current Medications Generic Name Dose Route Start Last Admin Trade Name Freq PRN Reason Stop Dose Admin Acetaminophen 650 mg 04/18/20 18:48 Acetaminophen 325 Mg Tablet PO Q6H PRN Headache/Pain Mild Scale (1-3) Al Hydroxide/Mg Hydroxide 30 ml 04/18/20 18:48 Magnesium Hydrox/Alum Hydrox 30 Ml Oral.Susp PO Q6H PRN Heartburn/Nausea Divalproex Sodium 1,000 mg 04/17/20 21:00 04/22/20 20:01 Divalproex Sodium Er 500 Mg Tab.Er.24h PO 1,000 mg BEDTIME DEVONTE Administration Divalproex Sodium 250 mg 04/22/20 09:00 04/23/20 08:14 Divalproex Sodium 250 Mg Tablet.Dr PO 250 mg DAILY DEVONTE Administration Finasteride 5 mg 04/17/20 14:00 04/23/20 08:14 Finasteride 5 Mg Tablet PO 5 mg DAILY DEVONTE Administration Hydroxyzine HCl 25 mg 04/18/20 18:48 04/22/20 00:23 Hydroxyzine Hcl 25 Mg Tablet PO 25 mg BEDTIME PRN Administration Anxiety Lorazepam 1 mg 04/19/20 07:02 04/23/20 02:48 Lorazepam 1 Mg Tablet PO 1 mg Q4H PRN Administration anxiety/restlessness Magnesium Hydroxide 30 ml 04/18/20 18:48 Milk Of Magnesia 30 Ml Oral.Susp PO DAILY PRN Constipation Metoprolol Tartrate 25 mg 04/17/20 14:00 04/23/20 08:14 Metoprolol Tartrate 50 Mg Tablet PO 25 mg BID DEVONTE Administration Protocol Olanzapine 5 mg 04/19/20 07:01 04/22/20 04:27 Olanzapine 5 Mg Tablet PO 5 mg Q4H PRN Administration Psychosis,blake Olanzapine 20 mg 04/21/20 21:00 04/22/20 20:01 Olanzapine 10 Mg Tablet PO 20 mg BEDTIME DEVONTE Administration Trazodone HCl 100 mg 04/17/20 13:50 04/23/20 02:48 Trazodone Hcl 100 Mg Tablet PO 100 mg BEDTIME PRN Administration insomnia Trazodone HCl 50 mg 04/19/20 00:56 04/19/20 01:15 Trazodone Hcl 50 Mg Tablet PO 50 mg BEDTIME PRN Administration Insomnia Vitamin D 25 mcg 04/22/20 09:00 04/23/20 08:14 Cholecalciferol (Vitamin D3) 25 Mcg Tablet PO 25 mcg DAILY DEVONTE Administration Allergies Allergies Allergy/AdvReac Type Severity Reaction Status Date / Time haloperidol [From HALDOL] Allergy Unknown UNKNOWN Unverified 12/03/19 15:27 Helidac Allergy Unknown seizure Uncoded 07/28/19 00:00 and stiffness Assessment & Plan Assessment & Plan (1) Schizoaffective disorder, bipolar type: Status: Acute Code(s): F25.0 - Schizoaffective disorder, bipolar type Assessment and Plan: Continue with treatment plan as below: Hx of [place] toxicity. Titrating Olanzapine and Valproate. We may need to re- start [place] at a lower dose as this is the medication he has had the best result with. -Labs 04/25/20 CBCD, Valproate, FBS, A1C, Lipids Call to Dr. Ames [phone]. Message left with team re POC (2) Anemia: Status: Acute Code(s): D64.9 - Anemia, unspecified (3) Renal cancer: Status: Acute Code(s): C64.9 - Malignant neoplasm of unspecified kidney, except renal pelvis (4) BPH w urinary obs/LUTS: Status: Acute Code(s): N40.1 - Benign prostatic hyperplasia with lower urinary tract symptoms; N13.8 - Other obstructive and reflux uropathy Greater than 50% of the session was spent on counseling and/or coordination of care Patient educated on: medication risk/benefits Informed Consent: further education needed Reason for contiued inpatient stay Substantial Risk for: inability to function and med/psych decompensation
[2020-04-23] MEDS: Divalproex Sodium ER 500 MG TAB.ER.24H 1000 MG PO (20:05)
[2020-04-23] MEDS: OLANZapine 10 MG TABLET 20 MG PO (20:05)
[2020-04-23 20:06] VITALS: BP 126/92; PULSE 106
[2020-04-24] MEDS: traZODone HCL 100 MG TABLET PO (02:18)
[2020-04-24] MEDS: LORazepam 1 MG TABLET PO (02:18)
[2020-04-24 06:20] VITALS: BP 130/81; PULSE 82; RESP 18; TEMP 36.4; O2SAT 98
[2020-04-24] MEDS: Acetaminophen 325 MG TABLET 650 MG PO (07:01)
[2020-04-24 08:02] VITALS: BP 148/77; PULSE 90
[2020-04-24] MEDS: Finasteride 5 MG TABLET PO (08:02)
[2020-04-24] MEDS: Divalproex Sodium 250 MG TABLET.DR PO (08:02)
[2020-04-24] MEDS: Metoprolol Tartrate 50 MG TABLET 25 MG PO ×2 (08:02→20:12)
[2020-04-24] MEDS: Cholecalciferol (Vitamin D3) 25 MCG TABLET PO (08:02)
--- NOTE | 2020-04-24 16:56 | HO.PSYCHPN ---
Subjective Subjective Date of Service: 04/24/20 Reason For Visit: Bipolar disorder Subjective Notes: Conditional Voluntary Interim History: Continues with labile mood and behavior. He's disorganized and mumbles. when he is calmer, his speech is more cherent. He is tolerating the Depakote and zyprexa Medication Compliance: Yes Side effects from medications: No Review of Systems Review of Systems No changes reported Yes Unobtainable due to mental status (Unable to obtain meaningful history.) Cardiovascular: Reports other (hypotensive, metoprolol held this a.m.) Reports behavioral changes and Reports confusion Psychiatric: Reports abnormal sleep pattern, Reports behavioral changes, Reports confusion, Reports difficulty concentrating, Reports auditory hallucinations, Reports irritability, Reports anhedonia, Reports mood swings, Reports paranoia, Reports homicidal ideation (denies) and Reports suicidal ideation ( no ) Mental Status Exam Mental Status Exam Patient Appearance: Disheveled Patient Orientation: Person Level of Consciousness: Awake Patient Behavior: Talkative, Posturing, Cooperative, Suspicious, Restless, Wandering, Anxious, Distractible, Confused and Pacing Mood Description: Calm, Euphoric, Happy, Suspicious, Withdrawn, Constricted, Relaxed, Hostile, Cheerful, Anxious, Labile, Angry, Nervous and Apprehensive Affect Description: Labile Patient Cognition Impaired: Yes Ability to Follow Directions: Fair Speech Pattern: Perseverating, Difficulty Finding Words, Garbled, Spontaneous Speech, Rambling, Mumbled, Cofabulation, Rapid, Excessive, Animated, Loud, Pressured, Excited and Poor Articulation Memory Description: Remote Impaired, Episodic Impaired and Recent Impaired Abnormal Motor Activity Signs and Symptoms: Restlessness Judgement: Poor Diagnostics Vital Signs (24Hr): Vital Signs - 24 hr 04/23/20 18:00 04/23/20 20:06 04/24/20 06:20 Temperature 98.2 F 97.6 F Pulse Rate 88 106 H 82 Respiratory Rate 18 Blood Pressure 134/89 126/92 H 130/81 Pulse Oximetry 98 04/24/20 08:02 Temperature Pulse Rate 90 Respiratory Rate Blood Pressure 148/77 H Pulse Oximetry Body Mass Index 0.0 Labs Results: 04/17/20 07:48 04/17/20 07:50 Imaging Radiology Impressions: ITS Impressions Chest X-Ray 04/17/20 07:27 IMPRESSION: No acute cardiopulmonary findings Head CT 04/17/20 07:27 IMPRESSION: No acute intracranial findings. Sinus disease as described. Medications Medications Current Medications Generic Name Dose Route Start Last Admin Trade Name Freq PRN Reason Stop Dose Admin Acetaminophen 650 mg 04/18/20 18:48 04/24/20 07:01 Acetaminophen 325 Mg Tablet PO 650 mg Q6H PRN Administration Headache/Pain Mild Scale (1-3) Al Hydroxide/Mg Hydroxide 30 ml 04/18/20 18:48 Magnesium Hydrox/Alum Hydrox 30 Ml Oral.Susp PO Q6H PRN Heartburn/Nausea Divalproex Sodium 1,000 mg 04/17/20 21:00 04/23/20 20:05 Divalproex Sodium Er 500 Mg Tab.Er.24h PO 1,000 mg BEDTIME DEVONTE Administration Divalproex Sodium 250 mg 04/22/20 09:00 04/24/20 08:02 Divalproex Sodium 250 Mg Tablet.Dr PO 250 mg DAILY DEVONTE Administration Finasteride 5 mg 04/17/20 14:00 04/24/20 08:02 Finasteride 5 Mg Tablet PO 5 mg DAILY DEVONTE Administration Hydroxyzine HCl 25 mg 04/18/20 18:48 04/22/20 00:23 Hydroxyzine Hcl 25 Mg Tablet PO 25 mg BEDTIME PRN Administration Anxiety Lorazepam 1 mg 04/19/20 07:02 04/24/20 02:18 Lorazepam 1 Mg Tablet PO 1 mg Q4H PRN Administration anxiety/restlessness Magnesium Hydroxide 30 ml 04/18/20 18:48 Milk Of Magnesia 30 Ml Oral.Susp PO DAILY PRN Constipation Metoprolol Tartrate 25 mg 04/17/20 14:00 04/24/20 08:02 Metoprolol Tartrate 50 Mg Tablet PO 25 mg BID DEVONTE Administration Protocol Olanzapine 5 mg 04/19/20 07:01 04/23/20 17:51 Olanzapine 5 Mg Tablet PO 5 mg Q4H PRN Administration Psychosis,blake Olanzapine 20 mg 04/21/20 21:00 04/23/20 20:05 Olanzapine 10 Mg Tablet PO 20 mg BEDTIME DEVONTE Administration Trazodone HCl 100 mg 04/17/20 13:50 04/24/20 02:18 Trazodone Hcl 100 Mg Tablet PO 100 mg BEDTIME PRN Administration insomnia Trazodone HCl 50 mg 04/19/20 00:56 04/19/20 01:15 Trazodone Hcl 50 Mg Tablet PO 50 mg BEDTIME PRN Administration Insomnia Vitamin D 25 mcg 04/22/20 09:00 04/24/20 08:02 Cholecalciferol (Vitamin D3) 25 Mcg Tablet PO 25 mcg DAILY DEVONTE Administration Allergies Allergies Allergy/AdvReac Type Severity Reaction Status Date / Time haloperidol [From HALDOL] Allergy Unknown UNKNOWN Unverified 12/03/19 15:27 Helidac Allergy Unknown seizure Uncoded 07/28/19 00:00 and stiffness Assessment & Plan Assessment & Plan (1) Schizoaffective disorder, bipolar type: Status: Acute Code(s): F25.0 - Schizoaffective disorder, bipolar type (2) Anemia: Status: Acute Code(s): D64.9 - Anemia, unspecified (3) Renal cancer: Status: Acute Code(s): C64.9 - Malignant neoplasm of unspecified kidney, except renal pelvis (4) BPH w urinary obs/LUTS: Status: Acute Code(s): N40.1 - Benign prostatic hyperplasia with lower urinary tract symptoms; N13.8 - Other obstructive and reflux uropathy Assessment and Plan: Continue with treatment plan as below: Hx of [place] toxicity. Titrating Olanzapine and Valproate. We may need to re-start [place] at a lower dose as this is the medication he has had the best result with. -Labs 04/25/20 CBCD, Valproate, FBS, A1C, Lipids Call to Dr. Ames [phone]. Message left with team re POC Greater than 50% of the session was spent on counseling and/or coordination of care Reason for contiued inpatient stay Substantial Risk for: harm to self, inability to function, rapid decompensation and med/psych decompensation
[2020-04-24 18:00] VITALS: BP 116/79; PULSE 89; TEMP 36.7
[2020-04-24 20:12] VITALS: BP 125/80; PULSE 101
[2020-04-24] MEDS: OLANZapine 10 MG TABLET 20 MG PO (20:12)
[2020-04-24] MEDS: Divalproex Sodium ER 500 MG TAB.ER.24H 1000 MG PO (20:12)
[2020-04-25 06:00] VITALS: BP 117/67; PULSE 87; RESP 16; TEMP 36.6; O2SAT 96
[2020-04-25 08:10] LABS: MANUAL DIFF FLAG NO
[2020-04-25 08:27] LABS: Basophils Percent Auto 0.6 % (0-2); Eosinophils Absolute Auto 0.2 X10*3/uL (0.0-0.4); Eosinophils Percent Auto 4.5 % (0-4); Hematocrit 36.5 % (42-52); Hemoglobin 11.2 g/dl (14.0-18.0); Imm Gran Abs Auto 0.02 X10*3/uL (0.00-0.03); Imm Gran Pct Auto 0.4 % (0.0-0.4); Lymphocytes Percent Auto 40.3 % (20-40); Mean Corpuscular HGB Conc 30.7 g/dl (31.0-36.0); Mean Corpuscular Hemoglobin 30.3 pg (27.0-33.0); Mean Corpuscular Volume 98.6 fL (80-98); Mean Platelet Volume 9.5 fL (9.4-12.4); Monocytes Absolute Auto 0.5 X10*3/uL (0.1-1.2); Monocytes Percent Auto 10.7 % (2-11); Neutrophils Absolute Auto 2.2 X10*3/uL (2.0-8.3); Neutrophils Percent Auto 43.5 % (45-73); Platelet Count 158 X10*3/uL (160-400); Red Cell Distribution Width 14.6 % (11.0-16.0); White Blood Count 4.9 X10*3/uL (4.8-10.8)
[2020-04-25 08:38] LABS: Estimated Average Glucose 126 mg/dL
[2020-04-25] MEDS: Metoprolol Tartrate 50 MG TABLET 25 MG PO ×2 (08:40→20:05)
[2020-04-25] MEDS: Finasteride 5 MG TABLET PO (08:40)
[2020-04-25] MEDS: LORazepam 1 MG TABLET PO ×2 (08:40→23:49)
[2020-04-25] MEDS: Divalproex Sodium 250 MG TABLET.DR PO (08:40)
[2020-04-25] MEDS: OLANZapine 5 MG TABLET PO (08:40)
[2020-04-25] MEDS: Cholecalciferol (Vitamin D3) 25 MCG TABLET PO (08:40)
[2020-04-25 09:14] LABS: Valproate 79.5 mcg/mL (50.0-100.0)
[2020-04-25 09:29] LABS: Cholesterol 133 mg/dL; Glucose Fasting 157 mg/dL (60-99); HDL Cholesterol 32 mg/dL; LDL Cholesterol Calculated 76 mg/dl; Triglycerides 127 mg/dL
[2020-04-25 18:00] VITALS: BP 115/67; PULSE 92; TEMP 36.6
--- NOTE | 2020-04-25 18:45 | P.PNPSI_ITS ---
Subjective Subjective Date of Service: 04/25/20 Reason For Visit: Bipolar disorder Subjective Notes: Conditional Voluntary (HCP activated) Interim History: Continues labile. Speech is more coherent, less pressured and is easier to understand at times. Medication Compliance: Yes Side effects from medications: No Attending Groups: No Review of Systems Reports behavioral changes Psychiatric: Reports behavioral changes, Reports difficulty concentrating and Reports mood swings Mental Status Exam Mental Status Exam Patient Appearance: Disheveled Patient Orientation: Person Level of Consciousness: Awake and Alert Patient Behavior: Restless Mood Description: Labile Affect Description: Labile Patient Cognition Impaired: Yes Ability to Follow Directions: Fair Speech Pattern: Slurred, Difficulty Finding Words, Garbled, Spontaneous Speech, Rambling, Soft-Spoken, Mumbled, Cofabulation, Rapid, Excessive, Animated, Loud, Pressured and Excited Memory Description: Remote Impaired, Immediate Impaired and Episodic Impaired Hallucinations: Auditory Delusions: Not Present Thought Process: Racing and Distracted Thought Content: positive for Flight of Ideas, positive for Racing, positive for Circumstantial, positive for Perseveration, positive for Tangential, positive for Disorganized and positive for Logical Depressive Symptoms: Difficulty Concentrating Abnormal Motor Activity Signs and Symptoms: Hyperactivity and Restlessness Judgement: Poor Diagnostics Vital Signs (24Hr): Vital Signs - 24 hr 04/24/20 20:12 04/25/20 06:00 04/25/20 18:00 Temperature 97.9 F 97.9 F Pulse Rate 101 H 87 92 Respiratory Rate 16 Blood Pressure 125/80 117/67 115/67 Pulse Oximetry 96 Body Mass Index 0.0 Labs Results: 04/25/20 08:04 04/17/20 07:50 Labs: Laboratory Results - last 48 hr 04/25/20 04/25/20 04/25/20 08:04 08:04 08:04 WBC 4.9 RBC 3.70 L Hgb 11.2 L Hct 36.5 L MCV 98.6 H MCH 30.3 MCHC 30.7 L RDW 14.6 Plt Count 158 L MPV 9.5 Immature Gran % (Auto) 0.4 Neut % (Auto) 43.5 L Lymph % (Auto) 40.3 H [place] % (Auto) 10.7 Eos % (Auto) 4.5 H Baso % (Auto) 0.6 Lymph # (Auto) 2.0 [place] # (Auto) 0.5 Eos # (Auto) 0.2 Baso # (Auto) 0.0 Abs Immat Gran (auto) 0.02 Absolute Neuts (auto) 2.2 Absolute Nucleated RBC 0.000 Nucleated RBC % (auto) 0.0 Fasting Glucose 157 H Estimat Average Glucose 126 Hemoglobin A1c % 6.0 Triglycerides 127 Cholesterol 133 LDL Cholesterol, Calc 76 HDL Cholesterol 32 Valproic Acid 79.5 Imaging Radiology Impressions: ITS Impressions Chest X-Ray 04/17/20 07:27 IMPRESSION: No acute cardiopulmonary findings Head CT 04/17/20 07:27 IMPRESSION: No acute intracranial findings. Sinus disease as described. Medications Medications Current Medications Generic Name Dose Route Start Last Admin Trade Name Freq PRN Reason Stop Dose Admin Acetaminophen 650 mg 04/18/20 18:48 04/24/20 07:01 Acetaminophen 325 Mg Tablet PO 650 mg Q6H PRN Administration Headache/Pain Mild Scale (1-3) Al Hydroxide/Mg Hydroxide 30 ml 04/18/20 18:48 Magnesium Hydrox/Alum Hydrox 30 Ml Oral.Susp PO Q6H PRN Heartburn/Nausea Divalproex Sodium 1,000 mg 04/17/20 21:00 04/24/20 20:12 Divalproex Sodium Er 500 Mg Tab.Er.24h PO 1,000 mg BEDTIME DEVONTE Administration Divalproex Sodium 250 mg 04/22/20 09:00 04/25/20 08:40 Divalproex Sodium 250 Mg Tablet.Dr PO 250 mg DAILY DEVONTE Administration Finasteride 5 mg 04/17/20 14:00 04/25/20 08:40 Finasteride 5 Mg Tablet PO 5 mg DAILY DEVONTE Administration Hydroxyzine HCl 25 mg 04/18/20 18:48 04/22/20 00:23 Hydroxyzine Hcl 25 Mg Tablet PO 25 mg BEDTIME PRN Administration Anxiety Lorazepam 1 mg 04/19/20 07:02 04/25/20 08:40 Lorazepam 1 Mg Tablet PO 1 mg Q4H PRN Administration anxiety/restlessness Magnesium Hydroxide 30 ml 04/18/20 18:48 Milk Of Magnesia 30 Ml Oral.Susp PO DAILY PRN Constipation Metoprolol Tartrate 25 mg 04/17/20 14:00 04/25/20 08:40 Metoprolol Tartrate 50 Mg Tablet PO 25 mg BID DEVONTE Administration Protocol Olanzapine 5 mg 04/19/20 07:01 04/25/20 08:40 Olanzapine 5 Mg Tablet PO 5 mg Q4H PRN Administration Psychosis,blake Olanzapine 20 mg 04/21/20 21:00 04/24/20 20:12 Olanzapine 10 Mg Tablet PO 20 mg BEDTIME DEVONTE Administration Trazodone HCl 100 mg 04/17/20 13:50 04/24/20 02:18 Trazodone Hcl 100 Mg Tablet PO 100 mg BEDTIME PRN Administration insomnia Trazodone HCl 50 mg 04/19/20 00:56 04/19/20 01:15 Trazodone Hcl 50 Mg Tablet PO 50 mg BEDTIME PRN Administration Insomnia Vitamin D 25 mcg 04/22/20 09:00 04/25/20 08:40 Cholecalciferol (Vitamin D3) 25 Mcg Tablet PO 25 mcg DAILY DEVONTE Administration Allergies Allergies Allergy/AdvReac Type Severity Reaction Status Date / Time haloperidol [From HALDOL] Allergy Unknown UNKNOWN Unverified 12/03/19 15:27 Helidac Allergy Unknown seizure Uncoded 07/28/19 00:00 and stiffness Assessment & Plan Assessment & Plan (1) Schizoaffective disorder, bipolar type: Status: Acute Code(s): F25.0 - Schizoaffective disorder, bipolar type Assessment and Plan: -Retrial of [place] 300 mg HS (2) Anemia: Status: Acute Code(s): D64.9 - Anemia, unspecified Greater than 50% of the session was spent on counseling and/or coordination of care Informed Consent: does not understand and further education needed Reason for contiued inpatient stay Substantial Risk for: harm to self, inability to function and med/psych decompensation
[2020-04-25 20:05] VITALS: BP 115/75; PULSE 99
[2020-04-25] MEDS: Divalproex Sodium ER 500 MG TAB.ER.24H 1000 MG PO (20:05)
[2020-04-25] MEDS: Lithium Carbonate 300 MG CAPSULE PO (20:05)
[2020-04-25] MEDS: OLANZapine 10 MG TABLET 20 MG PO (20:05)
[2020-04-25] MEDS: traZODone HCL 100 MG TABLET PO (23:49)
[2020-04-26] MEDS: traZODone HCL 50 MG TABLET PO (03:32)
[2020-04-26] MEDS: hydrOXYzine HCL 25 MG TABLET PO (03:33)
[2020-04-26 06:45] VITALS: BP 115/59; PULSE 77; RESP 18; TEMP 36.5; O2SAT 96
[2020-04-26] MEDS: Finasteride 5 MG TABLET PO (08:55)
[2020-04-26] MEDS: OLANZapine 5 MG TABLET PO (08:56)
[2020-04-26] MEDS: Divalproex Sodium 250 MG TABLET.DR PO (08:56)
[2020-04-26] MEDS: Metoprolol Tartrate 50 MG TABLET 25 MG PO ×2 (08:56→20:48)
[2020-04-26] MEDS: LORazepam 1 MG TABLET PO (08:56)
[2020-04-26] MEDS: Cholecalciferol (Vitamin D3) 25 MCG TABLET PO (08:56)
[2020-04-26 18:00] VITALS: BP 117/84; PULSE 95; TEMP 36.2
--- NOTE | 2020-04-26 18:54 | P.PNPSI_ITS ---
Subjective Subjective Date of Service: 04/26/20 Reason For Visit: Bipolar disorder Subjective Notes: Conditional Voluntary (HCP activated) Interim History: Visable, interactive, clearer speech and thought process at times, continues labile. Medication Compliance: Yes Side effects from medications: No Attending Groups: No Review of Systems Reports behavioral changes and Reports confusion Psychiatric: Reports behavioral changes, Reports confusion, Reports difficulty concentrating, Reports auditory hallucinations, Reports irritability, Reports mood swings and Reports paranoia Mental Status Exam Mental Status Exam Patient Appearance: Disheveled Patient Orientation: Person Level of Consciousness: Awake and Alert Patient Behavior: Talkative, Cooperative, Restless, Wandering, Anxious, Distractible, Confused and Good Eye Contact Mood Description: Labile Affect Description: Labile Patient Cognition Impaired: Yes Ability to Follow Directions: Fair Speech Pattern: Clear, Slurred, Impoverished, Garbled, Monotone, Spontaneous Speech, Coherent, Rambling, Soft-Spoken, Mumbled, Cofabulation, Rapid, Excessive, Animated and Poor Articulation Memory Description: Remote Impaired, Immediate Impaired and Episodic Impaired Hallucinations: Auditory Delusions: Paranoid Ideation Thought Process: Disoriented, Distracted and [place] Thought Content: positive for Flight of Ideas, positive for Racing, positive for Circumstantial, positive for [place] of [place], positive for Loose Associations and positive for Tangential Depressive Symptoms: Increased Irritability Abnormal Motor Activity Signs and Symptoms: Hyperactivity and Restlessness Judgement: Poor Diagnostics Vital Signs (24Hr): Vital Signs - 24 hr 04/25/20 20:05 04/26/20 06:45 Temperature 97.7 F Pulse Rate 99 77 Respiratory Rate 18 Blood Pressure 115/75 115/59 L Pulse Oximetry 96 Body Mass Index 0.0 Labs Results: 04/25/20 08:04 04/17/20 07:50 Labs: Laboratory Results - last 48 hr 04/25/20 04/25/20 04/25/20 08:04 08:04 08:04 WBC 4.9 RBC 3.70 L Hgb 11.2 L Hct 36.5 L MCV 98.6 H MCH 30.3 MCHC 30.7 L RDW 14.6 Plt Count 158 L MPV 9.5 Immature Gran % (Auto) 0.4 Neut % (Auto) 43.5 L Lymph % (Auto) 40.3 H [place] % (Auto) 10.7 Eos % (Auto) 4.5 H Baso % (Auto) 0.6 Lymph # (Auto) 2.0 [place] # (Auto) 0.5 Eos # (Auto) 0.2 Baso # (Auto) 0.0 Abs Immat Gran (auto) 0.02 Absolute Neuts (auto) 2.2 Absolute Nucleated RBC 0.000 Nucleated RBC % (auto) 0.0 Fasting Glucose 157 H Estimat Average Glucose 126 Hemoglobin A1c % 6.0 Triglycerides 127 Cholesterol 133 LDL Cholesterol, Calc 76 HDL Cholesterol 32 Valproic Acid 79.5 Imaging Radiology Impressions: ITS Impressions Chest X-Ray 04/17/20 07:27 IMPRESSION: No acute cardiopulmonary findings Head CT 04/17/20 07:27 IMPRESSION: No acute intracranial findings. Sinus disease as described. Medications Medications Current Medications Generic Name Dose Route Start Last Admin Trade Name Freq PRN Reason Stop Dose Admin Acetaminophen 650 mg 04/18/20 18:48 04/24/20 07:01 Acetaminophen 325 Mg Tablet PO 650 mg Q6H PRN Administration Headache/Pain Mild Scale (1-3) Al Hydroxide/Mg Hydroxide 30 ml 04/18/20 18:48 Magnesium Hydrox/Alum Hydrox 30 Ml Oral.Susp PO Q6H PRN Heartburn/Nausea Divalproex Sodium 1,000 mg 04/17/20 21:00 04/25/20 20:05 Divalproex Sodium Er 500 Mg Tab.Er.24h PO 1,000 mg BEDTIME DEVONTE Administration Divalproex Sodium 250 mg 04/22/20 09:00 04/26/20 08:56 Divalproex Sodium 250 Mg Tablet.Dr PO 250 mg DAILY DEVONTE Administration Finasteride 5 mg 04/17/20 14:00 04/26/20 08:55 Finasteride 5 Mg Tablet PO 5 mg DAILY DEVONTE Administration Hydroxyzine HCl 25 mg 04/18/20 18:48 04/26/20 03:33 Hydroxyzine Hcl 25 Mg Tablet PO 25 mg BEDTIME PRN Administration Anxiety [place] Carbonate 300 mg 04/25/20 21:00 04/25/20 20:05 [place] Carbonate 300 Mg Capsule PO 300 mg BEDTIME DEVONTE Administration Lorazepam 1 mg 04/19/20 07:02 04/26/20 08:56 Lorazepam 1 Mg Tablet PO 1 mg Q4H PRN Administration anxiety/restlessness Magnesium Hydroxide 30 ml 04/18/20 18:48 Milk Of Magnesia 30 Ml Oral.Susp PO DAILY PRN Constipation Metoprolol Tartrate 25 mg 04/17/20 14:00 04/26/20 08:56 Metoprolol Tartrate 50 Mg Tablet PO 25 mg BID DEVONTE Administration Protocol Olanzapine 5 mg 04/19/20 07:01 04/26/20 08:56 Olanzapine 5 Mg Tablet PO 5 mg Q4H PRN Administration Psychosis,blake Olanzapine 20 mg 04/21/20 21:00 04/25/20 20:05 Olanzapine 10 Mg Tablet PO 20 mg BEDTIME DEVONTE Administration Trazodone HCl 100 mg 04/17/20 13:50 04/25/20 23:49 Trazodone Hcl 100 Mg Tablet PO 100 mg BEDTIME PRN Administration insomnia Trazodone HCl 50 mg 04/19/20 00:56 04/26/20 03:32 Trazodone Hcl 50 Mg Tablet PO 50 mg BEDTIME PRN Administration Insomnia Vitamin D 25 mcg 04/22/20 09:00 04/26/20 08:56 Cholecalciferol (Vitamin D3) 25 Mcg Tablet PO 25 mcg DAILY DEVONTE Administration Allergies Allergies Allergy/AdvReac Type Severity Reaction Status Date / Time haloperidol [From HALDOL] Allergy Unknown UNKNOWN Unverified 12/03/19 15:27 Helidac Allergy Unknown seizure Uncoded 07/28/19 00:00 and stiffness Assessment & Plan Assessment & Plan (1) Schizoaffective disorder, bipolar type: Status: Acute Code(s): F25.0 - Schizoaffective disorder, bipolar type Assessment and Plan: -Continue current regime. Greater than 50% of the session was spent on counseling and/or coordination of care Reason for contiued inpatient stay Substantial Risk for: harm to self, inability to function and med/psych deco mpensation
[2020-04-26 20:48] VITALS: BP 117/84; PULSE 95
[2020-04-26] MEDS: OLANZapine 10 MG TABLET 20 MG PO (20:48)
[2020-04-26] MEDS: Divalproex Sodium ER 500 MG TAB.ER.24H 1000 MG PO (20:48)
[2020-04-26] MEDS: Lithium Carbonate 300 MG CAPSULE PO (20:48)
[2020-04-27] MEDS: traZODone HCL 100 MG TABLET PO (01:12)
[2020-04-27] MEDS: LORazepam 1 MG TABLET PO ×2 (01:12→09:13)
[2020-04-27] MEDS: OLANZapine 5 MG TABLET PO ×2 (01:12→09:13)
[2020-04-27 05:55] VITALS: BP 116/77; PULSE 94; RESP 16; TEMP 36.4; O2SAT 95
[2020-04-27] MEDS: Metoprolol Tartrate 50 MG TABLET 25 MG PO ×2 (09:12→20:27)
[2020-04-27] MEDS: Cholecalciferol (Vitamin D3) 25 MCG TABLET PO (09:13)
[2020-04-27] MEDS: Divalproex Sodium 250 MG TABLET.DR PO (09:13)
[2020-04-27] MEDS: Finasteride 5 MG TABLET PO (09:13)
[2020-04-27 15:40] LABS: Influenza A PCR NEGATIVE (Negative); Influenza B PCR NEGATIVE (Negative); Resp Syncy Virus RNA Qual PCR NEGATIVE (Negative); SARS COV2 PCR INHOUSE NEGATIVE (Negative)
[2020-04-27 16:38] VITALS: BP 118/74; PULSE 95; TEMP 36.8
--- NOTE | 2020-04-27 16:55 | P.PNPSI_ITS ---
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 Today, sexual themes in his dialogue, continues labile, but quieter, appears calmer at times. TC to Malissa Duygianni, pt's sister and guardian [phone] who reports she phones pt e ach evening and she believes there is gradual improvement, however, speech is still rapid with sexual overtones which is not in character for pt at baseline. Discussed re-trial of low dose [place], reviewed dosing of 300 mg 04/25 and 04/26 and decrease today to 150mg. Malissa reports pt has had all trials, [place] being the most successful. If we can utilize a small dose, monitor, manage to prevent toxicity, she would like him to have this advantage for quality. Review of anemia with Malissa as well. Discussed pt's poor hydration choices (prefers soda) and poor food choices which she is concerned about. Medication Compliance: Yes Side effects from medications: No Attending Groups: No Review of Systems Reports behavioral changes and Reports confusion Psychiatric: Reports behavioral changes, Reports change in appetite, Reports confusion, Reports difficulty concentrating, Reports auditory hallucinations, Reports irritability, Reports mood swings and Reports paranoia Mental Status Exam Mental Status Exam Patient Appearance: Disheveled Patient Orientation: Person Level of Consciousness: Awake, Restless and Alert Patient Behavior: Talkative, Hypersexual, Restless, Wandering, Anxious, Distractible and Confused (per family this has decreased) Mood Description: Labile Affect Description: Labile Patient Cognition Impaired: Yes Ability to Follow Directions: Fair Speech Pattern: Perseverating, Impoverished, Garbled, Spontaneous Speech, Coherent, Rambling, Soft-Spoken, Rapid, Pressured and Includes Profanity Memory Description: Remote Impaired, Immediate Impaired, Episodic Impaired and Recent Impaired Hallucinations: Auditory Delusions: Present Thought Process: Disoriented, Racing, Illogical and Distracted Thought Content: positive for Racing, positive for Loose Associations and positive for Tangential Depressive Symptoms: Increased Anxiety, Increased Irritability and Changes in Appetite Judgement: Poor Diagnostics Vital Signs (24Hr): Vital Signs - 24 hr 04/26/20 18:00 04/26/20 20:48 04/27/20 05:55 Temperature 97.1 F 97.5 F Pulse Rate 95 95 94 Respiratory Rate 16 Blood Pressure 117/84 117/84 116/77 Pulse Oximetry 95 04/27/20 16:38 Temperature 98.3 F Pulse Rate 95 Respiratory Rate Blood Pressure 118/74 Pulse Oximetry Body Mass Index 0.0 Labs Results: 04/25/20 08:04 04/17/20 07:50 Labs: Laboratory Results - last 48 hr 04/27/20 14:38 Coronavirus (PCR) NEGATIVE Influenza Type A (PCR) NEGATIVE Influenza Type B (PCR) NEGATIVE RSV RNA Qual (PCR) NEGATIVE Imaging Radiology Impressions: ITS Impressions Chest X-Ray 04/17/20 07:27 IMPRESSION: No acute cardiopulmonary findings Head CT 04/17/20 07:27 IMPRESSION: No acute intracranial findings. Sinus disease as described. Medications Medications Current Medications Generic Name Dose Route Start Last Admin Trade Name Freq PRN Reason Stop Dose Admin Acetaminophen 650 mg 04/18/20 18:48 04/24/20 07:01 Acetaminophen 325 Mg Tablet PO 650 mg Q6H PRN Administration Headache/Pain Mild Scale (1-3) Al Hydroxide/Mg Hydroxide 30 ml 04/18/20 18:48 Magnesium Hydrox/Alum Hydrox 30 Ml Oral.Susp PO Q6H PRN Heartburn/Nausea Divalproex Sodium 1,000 mg 04/17/20 21:00 04/26/20 20:48 Divalproex Sodium Er 500 Mg Tab.Er.24h PO 1,000 mg BEDTIME DEVONTE Administration Divalproex Sodium 250 mg 04/22/20 09:00 04/27/20 09:13 Divalproex Sodium 250 Mg Tablet.Dr PO 250 mg DAILY DEVONTE Administration Finasteride 5 mg 04/17/20 14:00 04/27/20 09:13 Finasteride 5 Mg Tablet PO 5 mg DAILY DEVONTE Administration Hydroxyzine HCl 25 mg 04/18/20 18:48 04/26/20 03:33 Hydroxyzine Hcl 25 Mg Tablet PO 25 mg BEDTIME PRN Administration Anxiety [place] Carbonate 300 mg 04/25/20 21:00 04/26/20 20:48 [place] Carbonate 300 Mg Capsule PO 300 mg BEDTIME DEVONTE Administration Lorazepam 1 mg 04/19/20 07:02 04/27/20 09:13 Lorazepam 1 Mg Tablet PO 1 mg Q4H PRN Administration anxiety/restlessness Magnesium Hydroxide 30 ml 04/18/20 18:48 Milk Of Magnesia 30 Ml Oral.Susp PO DAILY PRN Constipation Metoprolol Tartrate 25 mg 04/17/20 14:00 04/27/20 09:12 Metoprolol Tartrate 50 Mg Tablet PO 25 mg BID DEVONTE Administration Protocol Olanzapine 5 mg 04/19/20 07:01 04/27/20 09:13 Olanzapine 5 Mg Tablet PO 5 mg Q4H PRN Administration Psychosis,blake Olanzapine 20 mg 04/21/20 21:00 04/26/20 20:48 Olanzapine 10 Mg Tablet PO 20 mg BEDTIME DEVONTE Administration Trazodone HCl 100 mg 04/17/20 13:50 04/27/20 01:12 Trazodone Hcl 100 Mg Tablet PO 100 mg BEDTIME PRN Administration insomnia Trazodone HCl 50 mg 04/19/20 00:56 04/26/20 03:32 Trazodone Hcl 50 Mg Tablet PO 50 mg BEDTIME PRN Administration Insomnia Vitamin D 25 mcg 04/22/20 09:00 04/27/20 09:13 Cholecalciferol (Vitamin D3) 25 Mcg Tablet PO 25 mcg DAILY DEVONTE Administration Allergies Allergies Allergy/AdvReac Type Severity Reaction Status Date / Time haloperidol [From HALDOL] Allergy Unknown UNKNOWN Unverified 12/03/19 15:27 Helidac Allergy Unknown seizure Uncoded 07/28/19 00:00 and stiffness Assessment & Plan Assessment & Plan (1) Schizoaffective disorder, bipolar type: Status: Acute Code(s): F25.0 - Schizoaffective disorder, bipolar type Assessment and Plan: -Decrease [place] to 150 mg daily (2) Anemia: Status: Acute Code(s): D64.9 - Anemia, unspecified (3) BPH w urinary obs/LUTS: Status: Acute Code(s): N40.1 - Benign prostatic hyperplasia with lower urinary tract symptoms; N13.8 - Other obstructive and reflux uropathy (4) Renal cancer: Status: Acute Code(s): C64.9 - Malignant neoplasm of unspecified kidney, except renal pelvis Greater than 50% of the session was spent on counseling and/or coordination of care Reason for contiued inpatient stay Substantial Risk for: inability to function, rapid decompensation and med/psych decompensation
[2020-04-27] MEDS: Divalproex Sodium ER 500 MG TAB.ER.24H 1000 MG PO (20:25)
[2020-04-27] MEDS: Lithium Carbonate 300 MG TABLET 150 MG PO (20:26)
[2020-04-27] MEDS: OLANZapine 10 MG TABLET 20 MG PO (20:26)
[2020-04-27 20:27] VITALS: BP 132/88; PULSE 91
[2020-04-28] MEDS: traZODone HCL 100 MG TABLET PO (01:34)
[2020-04-28] MEDS: LORazepam 1 MG TABLET PO (01:34)
[2020-04-28 06:50] VITALS: BP 136/80; PULSE 90; RESP 18; TEMP 37; O2SAT 96
[2020-04-28] MEDS: Cholecalciferol (Vitamin D3) 25 MCG TABLET PO (08:52)
[2020-04-28] MEDS: Finasteride 5 MG TABLET PO (08:52)
[2020-04-28] MEDS: Metoprolol Tartrate 50 MG TABLET 25 MG PO ×2 (08:52→20:22)
[2020-04-28] MEDS: Divalproex Sodium 250 MG TABLET.DR PO (08:52)
[2020-04-28] MEDS: Milk of Magnesia 30 ML ORAL.SUSP PO (16:36)
--- NOTE | 2020-04-28 16:52 | HO.PSYCHPN ---
Subjective Subjective Date of Service: 04/28/20 Reason For Visit: Bipolar disorder Subjective Notes: Conditional Voluntary (hcp activated) Interim History: Labile, disorganized, delusional with brief moments of clarity. Medication Compliance: Yes Side effects from medications: No Attending Groups: No Review of Systems Reports behavioral changes and Reports confusion Psychiatric: Reports behavioral changes, Reports confusion, Reports difficulty concentrating, Reports auditory hallucinations, Reports irritability, Reports mood swings, Reports visual hallucinations, Reports hallucinations and Reports tactile hallucinations Mental Status Exam Mental Status Exam Patient Appearance: Disheveled Patient Orientation: Person, Place, Time and Situation Level of Consciousness: Awake, Disoriented, Restless, Alert and Inappropriate Patient Behavior: Talkative, Suspicious, Hypersexual, Restless, Anxious, Distractible and Confused Mood Description: Labile Affect Description: Labile Patient Cognition Impaired: Yes Ability to Follow Directions: Fair Speech Pattern: Perseverating, Spontaneous Speech, Coherent, Rambling, Soft-Spoken, Cofabulation, Rapid, Inappropriate, Excessive, Animated, Loud, Pressured, Includes Profanity and Poor Articulation Memory Description: Remote Impaired, Immediate Impaired and Episodic Impaired Hallucinations: Auditory, Visual and Olfactory Delusions: Paranoid Ideation Thought Process: Racing, Illogical, Distracted and Rumination Thought Content: positive for Disoriented, positive for [place], positive for Circumstantial, positive for Loose Associations, positive for Tangential and positive for Disorganized Depressive Symptoms: Increased Irritability and Difficulty Concentrating Abnormal Motor Activity Signs and Symptoms: Agitation, Hyperactivity and Restlessness Judgement: Poor Diagnostics Vital Signs (24Hr): Vital Signs - 24 hr 04/27/20 20:27 04/28/20 06:50 Temperature 98.6 F Pulse Rate 91 90 Respiratory Rate 18 Blood Pressure 132/88 136/80 Pulse Oximetry 96 Body Mass Index 0.0 Labs Results: 04/25/20 08:04 04/17/20 07:50 Labs: Laboratory Results - last 48 hr 04/27/20 14:38 Coronavirus (PCR) NEGATIVE Influenza Type A (PCR) NEGATIVE Influenza Type B (PCR) NEGATIVE RSV RNA Qual (PCR) NEGATIVE Imaging Radiology Impressions: ITS Impressions Chest X-Ray 04/17/20 07:27 IMPRESSION: No acute cardiopulmonary findings Head CT 04/17/20 07:27 IMPRESSION: No acute intracranial findings. Sinus disease as described. Medications Medications Current Medications Generic Name Dose Route Start Last Admin Trade Name Freq PRN Reason Stop Dose Admin Acetaminophen 650 mg 04/18/20 18:48 04/24/20 07:01 Acetaminophen 325 Mg Tablet PO 650 mg Q6H PRN Administration Headache/Pain Mild Scale (1-3) Al Hydroxide/Mg Hydroxide 30 ml 04/18/20 18:48 Magnesium Hydrox/Alum Hydrox 30 Ml Oral.Susp PO Q6H PRN Heartburn/Nausea Divalproex Sodium 1,000 mg 04/17/20 21:00 04/27/20 20:25 Divalproex Sodium Er 500 Mg Tab.Er.24h PO 1,000 mg BEDTIME DEVONTE Administration Divalproex Sodium 250 mg 04/22/20 09:00 04/28/20 08:52 Divalproex Sodium 250 Mg Tablet.Dr PO 250 mg DAILY DEVONTE Administration Finasteride 5 mg 04/17/20 14:00 04/28/20 08:52 Finasteride 5 Mg Tablet PO 5 mg DAILY DEVONTE Administration Hydroxyzine HCl 25 mg 04/18/20 18:48 04/26/20 03:33 Hydroxyzine Hcl 25 Mg Tablet PO 25 mg BEDTIME PRN Administration Anxiety [place] Carbonate 150 mg 04/27/20 21:00 04/27/20 20:26 [place] Carbonate 300 Mg Tablet PO 150 mg BEDTIME DEVONTE Administration Lorazepam 1 mg 04/19/20 07:02 04/28/20 01:34 Lorazepam 1 Mg Tablet PO 1 mg Q4H PRN Administration anxiety/restlessness Magnesium Hydroxide 30 ml 04/18/20 18:48 04/28/20 16:36 Milk Of Magnesia 30 Ml Oral.Susp PO 30 ml DAILY PRN Administration Constipation Metoprolol Tartrate 25 mg 04/17/20 14:00 04/28/20 08:52 Metoprolol Tartrate 50 Mg Tablet PO 25 mg BID DEVONTE Administration Protocol Olanzapine 5 mg 04/19/20 07:01 04/27/20 09:13 Olanzapine 5 Mg Tablet PO 5 mg Q4H PRN Administration Psychosis,blake Olanzapine 20 mg 04/21/20 21:00 04/27/20 20:26 Olanzapine 10 Mg Tablet PO 20 mg BEDTIME DEVONTE Administration Trazodone HCl 100 mg 04/17/20 13:50 04/28/20 01:34 Trazodone Hcl 100 Mg Tablet PO 100 mg BEDTIME PRN Administration insomnia Trazodone HCl 50 mg 04/19/20 00:56 04/26/20 03:32 Trazodone Hcl 50 Mg Tablet PO 50 mg BEDTIME PRN Administration Insomnia Vitamin D 25 mcg 04/22/20 09:00 04/28/20 08:52 Cholecalciferol (Vitamin D3) 25 Mcg Tablet PO 25 mcg DAILY DEVONTE Administration Allergies Allergies Allergy/AdvReac Type Severity Reaction Status Date / Time haloperidol [From HALDOL] Allergy Unknown UNKNOWN Unverified 12/03/19 15:27 Helidac Allergy Unknown seizure Uncoded 07/28/19 00:00 and stiffness Assessment & Plan Assessment & Plan (1) Schizoaffective disorder, bipolar type: Status: Acute Code(s): F25.0 - Schizoaffective disorder, bipolar type Assessment and Plan: -Begin trial of Risperdal 0.5 mg bid Greater than 50% of the session was spent on counseling and/or coordination of care Reason for contiued inpatient stay Substantial Risk for: harm to self, harm to others, inability to function and med/psych decompensation
[2020-04-28 18:00] VITALS: BP 156/82; PULSE 90; TEMP 36.4
[2020-04-28 20:22] VITALS: BP 156/82; PULSE 90
[2020-04-28] MEDS: Lithium Carbonate 300 MG TABLET 150 MG PO (20:23)
[2020-04-28] MEDS: Divalproex Sodium ER 500 MG TAB.ER.24H 1000 MG PO (20:24)
[2020-04-28] MEDS: OLANZapine 10 MG TABLET 20 MG PO (20:25)
[2020-04-29] MEDS: OLANZapine 5 MG TABLET PO ×2 (00:09→13:52)
[2020-04-29] MEDS: traZODone HCL 100 MG TABLET PO (00:09)
[2020-04-29] MEDS: LORazepam 1 MG TABLET PO ×2 (00:10→20:21)
[2020-04-29] MEDS: traZODone HCL 50 MG TABLET PO (01:39)
[2020-04-29] MEDS: hydrOXYzine HCL 25 MG TABLET PO ×2 (01:39→20:21)
[2020-04-29 06:25] VITALS: BP 115/72; PULSE 78; RESP 18; TEMP 36.4; O2SAT 98
[2020-04-29 08:45] VITALS: BP 115/72; PULSE 78
[2020-04-29] MEDS: Metoprolol Tartrate 50 MG TABLET 25 MG PO ×2 (08:45→20:18)
[2020-04-29] MEDS: Divalproex Sodium 250 MG TABLET.DR PO (08:45)
[2020-04-29] MEDS: Cholecalciferol (Vitamin D3) 25 MCG TABLET PO (08:45)
[2020-04-29] MEDS: Finasteride 5 MG TABLET PO (08:46)
[2020-04-29] MEDS: risperiDONE 0.5 MG TABLET PO (12:40)
[2020-04-29] MEDS: Milk of Magnesia 30 ML ORAL.SUSP PO (13:52)
[2020-04-29 18:00] VITALS: BP 131/72; PULSE 86; TEMP 36.2
--- NOTE | 2020-04-29 18:44 | P.PNPSI_ITS ---
Subjective Subjective Date of Service: 04/30/20 Reason For Visit: Bipolar disorder Subjective Notes: Conditional Voluntary (HCP activated) Interim History: Labile, agitated, disinhibited. Several prn attempts with poor outcome. Discussed full re-trial of [place] with sister, guardian, Malissa, who agrees. Medication Compliance: Yes Side effects from medications: No Attending Groups: No Review of Systems Reports confusion Psychiatric: Reports confusion, Reports difficulty concentrating, Reports auditory hallucinations, Reports irritability, Reports mood swings, Reports paranoia, Reports visual hallucinations and Reports hallucinations Hematologic/Lymphatic: Reports other (anemia-messages left with PCP to discuss current values) Mental Status Exam Mental Status Exam Patient Appearance: Well Grooomed (showered today) and Disheveled Patient Orientation: Person Level of Consciousness: Awake and Restless Patient Behavior: Talkative, Hyperactive, Suspicious, Hypersexual, Restless, Belligerent, Wandering, Swearing, Anxious and Distractible Mood Description: Labile Affect Description: Labile Patient Cognition Impaired: Yes Ability to Follow Directions: Good Speech Pattern: Spontaneous Speech Memory Description: Remote Impaired, Immediate Impaired, Long-Term Impaired, Episodic Impaired, Recent Impaired, Working Impaired and Semantic Impaired Hallucinations: Auditory and Visual Delusions: Paranoid Ideation Thought Process: Racing, Illogical and Distracted Thought Content: positive for Flight of Ideas, positive for Preoccupation, positive for Loose Associations, positive for Tangential and positive for Disorganized Depressive Symptoms: Increased Irritability and Difficulty Concentrating Abnormal Motor Activity Signs and Symptoms: Agitation, Hyperactivity and Restlessness Judgement: Poor Diagnostics Vital Signs (24Hr): Vital Signs - 24 hr 04/28/20 20:22 04/29/20 06:25 04/29/20 08:45 Temperature 97.6 F Pulse Rate 90 78 78 Respiratory Rate 18 Blood Pressure 156/82 H 115/72 115/72 Pulse Oximetry 98 Body Mass Index 0.0 Labs Results: 04/25/20 08:04 04/17/20 07:50 Imaging Radiology Impressions: ITS Impressions Chest X-Ray 04/17/20 07:27 IMPRESSION: No acute cardiopulmonary findings Head CT 04/17/20 07:27 IMPRESSION: No acute intracranial findings. Sinus disease as described. Medications Medications Current Medications Generic Name Dose Route Start Last Admin Trade Name Freq PRN Reason Stop Dose Admin Acetaminophen 650 mg 04/18/20 18:48 02/07/21 07:01 Acetaminophen 325 Mg Tablet PO 650 mg Q6H PRN Administration Headache/Pain Mild Scale (1-3) Al Hydroxide/Mg Hydroxide 30 ml 04/18/20 18:48 Magnesium Hydrox/Alum Hydrox 30 Ml Oral.Susp PO Q6H PRN Heartburn/Nausea Divalproex Sodium 1,000 mg 04/17/20 21:00 04/28/20 20:24 Divalproex Sodium Er 500 Mg Tab.Er.24h PO 1,000 mg BEDTIME DEVONTE Administration Divalproex Sodium 250 mg 04/22/20 09:00 04/29/20 08:45 Divalproex Sodium 250 Mg Tablet.Dr PO 250 mg DAILY DEVONTE Administration Finasteride 5 mg 04/17/20 14:00 04/29/20 08:46 Finasteride 5 Mg Tablet PO 5 mg DAILY DEVONTE Administration Hydroxyzine HCl 25 mg 04/18/20 18:48 04/29/20 01:39 Hydroxyzine Hcl 25 Mg Tablet PO 25 mg BEDTIME PRN Administration Anxiety [place] Carbonate 300 mg 04/29/20 21:00 [place] Carbonate 300 Mg Capsule PO BID DEVONTE Lorazepam 1 mg 04/29/20 17:54 Lorazepam 1 Mg Tablet PO Q4H PRN agitation Magnesium Hydroxide 30 ml 04/18/20 18:48 04/29/20 13:52 Milk Of Magnesia 30 Ml Oral.Susp PO 30 ml DAILY PRN Administration Constipation Metoprolol Tartrate 25 mg 04/17/20 14:00 04/29/20 08:45 Metoprolol Tartrate 50 Mg Tablet PO 25 mg BID DEVONTE Administration Protocol Olanzapine 5 mg 04/19/20 07:01 04/29/20 13:52 Olanzapine 5 Mg Tablet PO 5 mg Q4H PRN Administration Psychosis,blake Olanzapine 20 mg 04/21/20 21:00 04/28/20 20:25 Olanzapine 10 Mg Tablet PO 20 mg BEDTIME DEVONTE Administration Risperidone 0.5 mg 04/29/20 21:00 Risperidone 0.5 Mg Tablet PO BID DEVONTE Trazodone HCl 100 mg 04/17/20 13:50 04/29/20 00:09 Trazodone Hcl 100 Mg Tablet PO 100 mg BEDTIME PRN Administration insomnia Trazodone HCl 50 mg 04/19/20 00:56 04/29/20 01:39 Trazodone Hcl 50 Mg Tablet PO 50 mg BEDTIME PRN Administration Insomnia Vitamin D 25 mcg 04/22/20 09:00 04/29/20 08:45 Cholecalciferol (Vitamin D3) 25 Mcg Tablet PO 25 mcg DAILY DEVONTE Administration Allergies Allergies Allergy/AdvReac Type Severity Reaction Status Date / Time haloperidol [From HALDOL] Allergy Unknown UNKNOWN Unverified 12/03/19 15:27 Helidac Allergy Unknown seizure Uncoded 07/28/19 00:00 and stiffness Assessment & Plan Assessment & Plan (1) Schizoaffective disorder, bipolar type: Status: Acute Code(s): F25.0 - Schizoaffective disorder, bipolar type Assessment and Plan: [place] 300 mg bid (2) Anemia: Status: Acute Code(s): D64.9 - Anemia, unspecified Greater than 50% of the session was spent on counseling and/or coordination of care Reason for contiued inpatient stay Substantial Risk for: harm to self, harm to others and med/psych decompensation
[2020-04-29 20:18] VITALS: BP 142/82; PULSE 92
[2020-04-29] MEDS: Lithium Carbonate 300 MG CAPSULE PO (20:20)
[2020-04-29] MEDS: Divalproex Sodium ER 500 MG TAB.ER.24H 1000 MG PO (20:20)
[2020-04-29] MEDS: OLANZapine 10 MG TABLET 20 MG PO (20:21)
[2020-04-29] MEDS: Docusate Sodium 100 MG CAPSULE PO (21:01)
[2020-04-30] MEDS: LORazepam 1 MG TABLET PO ×3 (02:46→16:18)
[2020-04-30] MEDS: traZODone HCL 100 MG TABLET PO (02:46)
[2020-04-30 06:49] VITALS: BP 138/74; PULSE 80; RESP 18; TEMP 36; O2SAT 100
[2020-04-30] MEDS: Finasteride 5 MG TABLET PO (08:29)
[2020-04-30 08:30] VITALS: BP 138/74; PULSE 80
[2020-04-30] MEDS: Docusate Sodium 100 MG CAPSULE PO ×2 (08:30→20:33)
[2020-04-30] MEDS: Divalproex Sodium 250 MG TABLET.DR PO (08:30)
[2020-04-30] MEDS: Metoprolol Tartrate 50 MG TABLET 25 MG PO ×2 (08:30→20:31)
[2020-04-30] MEDS: Cholecalciferol (Vitamin D3) 25 MCG TABLET PO (08:30)
[2020-04-30] MEDS: Lithium Carbonate 300 MG CAPSULE PO ×2 (08:30→20:32)
[2020-04-30] MEDS: OLANZapine 5 MG TABLET PO ×2 (09:35→16:18)
--- NOTE | 2020-04-30 13:12 | P.PNPSI_ITS ---
Subjective Subjective Date of Service: 04/30/20 Reason For Visit: Bipolar disorder Interim History: Pt seen, chart reviewed, case discussed vitals reviewed Labs reviewed: labs mostly either stable or improved; mildly elevated lft's Pt aimlessly wandering hallway, smiling inappropriately, speech garbled, difficult to understand and making odd, inappropriate hand gestures. Pt's language too difficult to make out. Staff reports this remains pt's presentation with little improvement. Pt at times yelling in room. Medication Compliance: Yes Attending Groups: No Mental Status Exam Mental Status Exam Patient Appearance: Disheveled and Unkempt Patient Orientation: Person Level of Consciousness: Awake and Alert Patient Behavior: Wandering, Invasion - Personal Space and Confused Mood Description: Labile Affect Description: Labile Ability to Follow Directions: Poor Speech Pattern: Garbled Thought Process: Confusion Thought Content: positive for Disorganized Judgement: Poor Diagnostics Vital Signs (24Hr): Vital Signs - 24 hr 04/29/20 18:00 04/29/20 20:18 04/30/20 06:49 Temperature 97.1 F 96.8 F Pulse Rate 86 92 80 Respiratory Rate 18 Blood Pressure 131/72 142/82 H 138/74 Pulse Oximetry 100 04/30/20 08:30 Temperature Pulse Rate 80 Respiratory Rate Blood Pressure 138/74 Pulse Oximetry Body Mass Index 0.0 Labs Results: 04/30/20 13:36 04/30/20 13:36 Imaging Radiology Impressions: ITS Impressions Chest X-Ray 04/17/20 07:27 IMPRESSION: No acute cardiopulmonary findings Head CT 04/17/20 07:27 IMPRESSION: No acute intracranial findings. Sinus disease as described. Medications Medications Current Medications Generic Name Dose Route Start Last Admin Trade Name Freq PRN Reason Stop Dose Admin Acetaminophen 650 mg 04/18/20 18:48 04/24/20 07:01 Acetaminophen 325 Mg Tablet PO 650 mg Q6H PRN Administration Headache/Pain Mild Scale (1-3) Al Hydroxide/Mg Hydroxide 30 ml 04/18/20 18:48 Magnesium Hydrox/Alum Hydrox 30 Ml Oral.Susp PO Q6H PRN Heartburn/Nausea Divalproex Sodium 1,000 mg 04/17/20 21:00 04/29/20 20:20 Divalproex Sodium Er 500 Mg Tab.Er.24h PO 1,000 mg BEDTIME DEVONTE Administration Divalproex Sodium 250 mg 04/22/20 09:00 04/30/20 08:30 Divalproex Sodium 250 Mg Tablet.Dr PO 250 mg DAILY DEVONTE Administration Docusate Sodium 100 mg 04/29/20 21:00 04/30/20 08:30 Docusate Sodium 100 Mg Capsule PO 100 mg BID DEVONTE Administration Finasteride 5 mg 04/17/20 14:00 04/30/20 08:29 Finasteride 5 Mg Tablet PO 5 mg DAILY DEVONTE Administration Hydroxyzine HCl 25 mg 04/18/20 18:48 04/29/20 20:21 Hydroxyzine Hcl 25 Mg Tablet PO 25 mg BEDTIME PRN Administration Anxiety [place] Carbonate 300 mg 04/29/20 21:00 04/30/20 08:30 [place] Carbonate 300 Mg Capsule PO 300 mg BID DEVONTE Administration Lorazepam 1 mg 04/29/20 17:54 04/30/20 08:30 Lorazepam 1 Mg Tablet PO 1 mg Q4H PRN Administration agitation Magnesium Hydroxide 30 ml 04/18/20 18:48 04/29/20 13:52 Milk Of Magnesia 30 Ml Oral.Susp PO 30 ml DAILY PRN Administration Constipation Metoprolol Tartrate 25 mg 04/17/20 14:00 04/30/20 08:30 Metoprolol Tartrate 50 Mg Tablet PO 25 mg BID DEVONTE Administration Protocol Olanzapine 5 mg 04/19/20 07:01 04/30/20 09:35 Olanzapine 5 Mg Tablet PO 5 mg Q4H PRN Administration Psychosis,blake Olanzapine 20 mg 04/21/20 21:00 04/29/20 20:21 Olanzapine 10 Mg Tablet PO 20 mg BEDTIME DEVONTE Administration Trazodone HCl 100 mg 04/17/20 13:50 04/30/20 02:46 Trazodone Hcl 100 Mg Tablet PO 100 mg BEDTIME PRN Administration insomnia Trazodone HCl 50 mg 04/19/20 00:56 04/29/20 01:39 Trazodone Hcl 50 Mg Tablet PO 50 mg BEDTIME PRN Administration Insomnia Vitamin D 25 mcg 04/22/20 09:00 04/30/20 08:30 Cholecalciferol (Vitamin D3) 25 Mcg Tablet PO 25 mcg DAILY DEVONTE Administration Allergies Allergies Allergy/AdvReac Type Severity Reaction Status Date / Time haloperidol [From HALDOL] Allergy Unknown UNKNOWN Unverified 12/03/19 15:27 Helidac Allergy Unknown seizure Uncoded 07/28/19 00:00 and stiffness Assessment & Plan Impression: pt floridly psychotic/manic; taking meds. Pt disorganized, sometimes intrusive, but generally pleasant and redirectable. dx: schizoaffective, bipolar type plan: continue current tx plan labs reviewed and values grossly stable with mildly elevated lft's no changes to current tx plan at this time Greater than 50% of the session was spent on counseling and/or coordination of care Reason for contiued inpatient stay Substantial Risk for: med/psych decompensation
[2020-04-30 13:59] LABS: MANUAL DIFF FLAG NO
[2020-04-30 14:01] LABS: Basophils Percent Auto 0.4 % (0-2); Eosinophils Absolute Auto 0.3 X10*3/uL (0.0-0.4); Eosinophils Percent Auto 3.6 % (0-4); Hematocrit 37.4 % (42-52); Hemoglobin 11.8 g/dl (14.0-18.0); Imm Gran Abs Auto 0.03 X10*3/uL (0.00-0.03); Imm Gran Pct Auto 0.4 % (0.0-0.4); Lymphocytes Absolute Auto 1.9 X10*3/uL (1.2-4.9); Lymphocytes Percent Auto 24.5 % (20-40); Mean Corpuscular HGB Conc 31.6 g/dl (31.0-36.0); Mean Corpuscular Hemoglobin 30.6 pg (27.0-33.0); Mean Corpuscular Volume 96.9 fL (80-98); Mean Platelet Volume 9.5 fL (9.4-12.4); Monocytes Absolute Auto 0.8 X10*3/uL (0.1-1.2); Monocytes Percent Auto 10.6 % (2-11); Neutrophils Absolute Auto 4.7 X10*3/uL (2.0-8.3); Neutrophils Percent Auto 60.5 % (45-73); Platelet Count 184 X10*3/uL (160-400); Red Blood Count 3.86 X10*6/uL (4.60-5.80); Red Cell Distribution Width 14.7 % (11.0-16.0); White Blood Count 7.7 X10*3/uL (4.8-10.8)
[2020-04-30 14:36] LABS: Alanine Aminotransferase 77 U/L (0-40); Albumin Level 4.4 g/dL (3.5-5.0); Alkaline Phosphatase 50 U/L (39-117); Anion Gap 12 (12-20); Aspartate Amino Transferase 55 U/L (5-37); Bilirubin Direct 0.2 mg/dL (0.0-0.5); Bilirubin Total 0.6 mg/dL (0.0-1.0); Blood Urea Nitrogen 18 mg/dL (9-16); Carbon Dioxide 29 mmol/L (22-29); Chloride 105 mmol/L (96-108); Estimated Glomerular Filt Rate > 60; Potassium 5.1 mmol/L (3.3-5.1); Sodium 141 mmol/L (135-145); Total Protein 6.9 g/dL (6.5-8.0)
[2020-04-30 18:00] VITALS: BP 146/91; PULSE 94; TEMP 36.6
[2020-04-30] MEDS: Divalproex Sodium ER 500 MG TAB.ER.24H 1000 MG PO (20:30)
[2020-04-30] MEDS: OLANZapine 10 MG TABLET 20 MG PO (20:30)
[2020-04-30 20:31] VITALS: BP 146/91; PULSE 94
[2020-05-01] MEDS: LORazepam 1 MG TABLET PO ×3 (00:53→16:43)
[2020-05-01] MEDS: OLANZapine 5 MG TABLET PO ×3 (00:53→16:43)
[2020-05-01] MEDS: traZODone HCL 100 MG TABLET PO ×2 (00:53→21:29)
[2020-05-01] MEDS: Acetaminophen 325 MG TABLET 650 MG PO (00:58)
[2020-05-01] MEDS: traZODone HCL 50 MG TABLET PO (02:37)
[2020-05-01 06:00] VITALS: BP 120/81; PULSE 91; TEMP 36.1; O2SAT 96
[2020-05-01] MEDS: Divalproex Sodium 250 MG TABLET.DR PO (08:39)
[2020-05-01] MEDS: Docusate Sodium 100 MG CAPSULE PO ×2 (08:39→21:29)
[2020-05-01] MEDS: Lithium Carbonate 300 MG CAPSULE PO ×2 (08:39→09:00)
[2020-05-01 08:40] VITALS: BP 120/81; PULSE 91
[2020-05-01] MEDS: Cholecalciferol (Vitamin D3) 25 MCG TABLET PO (08:40)
[2020-05-01] MEDS: Finasteride 5 MG TABLET PO (08:40)
[2020-05-01] MEDS: Metoprolol Tartrate 50 MG TABLET 25 MG PO ×2 (08:40→21:30)
--- NOTE | 2020-05-01 11:00 | P.PNPSI_ITS ---
Subjective Subjective Date of Service: 05/02/20 Reason For Visit: Bipolar disorder Interim History: Pt seen, chart reviewed, case discussed vitals reviewed Labs reviewed: labs mostly either stable or improved; mildly elevated lft's Pt was able to communicate that he has trouble swallowing...or that he can swallow but it comes back up. Patient used hand gestures to augment his speech. Nursing staff present reports that pt had said something similar days before. Otherwise, No change in presentation. Pt continues to aimlessly wandering hallway, smiling inappropriately, speech mostly garbled, difficult to understand and making odd, inappropriate hand gestures. Intermittent yelling, internally preoccupied. Medication Compliance: Yes Mental Status Exam Mental Status Exam Narrative: Patient Appearance: Disheveled and Unkempt Patient Orientation: Person Level of Consciousness: Awake and Alert Patient Behavior: Wandering, Invasion - Personal Space and Confused Mood Description: Labile Affect Description: Labile Ability to Follow Directions: Poor Speech Pattern: Garbled Thought Process: Confusion Thought Content: positive for Disorganized Judgment/insight: Poor Diagnostics Vital Signs (24Hr): Vital Signs - 24 hr 04/30/20 18:00 04/30/20 20:31 05/01/20 06:00 Temperature 97.8 F 97.0 F Pulse Rate 94 94 91 Blood Pressure 146/91 H 146/91 H 120/81 Pulse Oximetry 96 05/01/20 08:40 Temperature Pulse Rate 91 Blood Pressure 120/81 Pulse Oximetry Body Mass Index 0.0 Labs Results: 04/30/20 13:36 04/30/20 13:36 Labs: Laboratory Results - last 48 hr 04/30/20 04/30/20 13:36 13:36 WBC 7.7 RBC 3.86 L Hgb 11.8 L Hct 37.4 L MCV 96.9 MCH 30.6 MCHC 31.6 RDW 14.7 Plt Count 184 MPV 9.5 Immature Gran % (Auto) 0.4 Neut % (Auto) 60.5 Lymph % (Auto) 24.5 [place] % (Auto) 10.6 Eos % (Auto) 3.6 Baso % (Auto) 0.4 Lymph # (Auto) 1.9 [place] # (Auto) 0.8 Eos # (Auto) 0.3 Baso # (Auto) 0.0 Abs Immat Gran (auto) 0.03 Absolute Neuts (auto) 4.7 Absolute Nucleated RBC 0.000 Nucleated RBC % (auto) 0.0 Sodium 141 Potassium 5.1 Chloride 105 Carbon Dioxide 29 Anion Gap 12 BUN 18 H Creatinine 1.22 Estim Creat Clear Calc TNP Estimated GFR > 60 Total Bilirubin 0.6 Direct Bilirubin 0.2 AST 55 H ALT 77 H Alkaline Phosphatase 50 Total Protein 6.9 Albumin 4.4 Imaging Radiology Impressions: ITS Impressions Chest X-Ray 04/17/20 07:27 IMPRESSION: No acute cardiopulmonary findings Head CT 04/17/20 07:27 IMPRESSION: No acute intracranial findings. Sinus disease as described. Medications Medications Current Medications Generic Name Dose Route Start Last Admin Trade Name Freq PRN Reason Stop Dose Admin Acetaminophen 650 mg 04/18/20 18:48 05/01/20 00:58 Acetaminophen 325 Mg Tablet PO 650 mg Q6H PRN Administration Headache/Pain Mild Scale (1-3) Al Hydroxide/Mg Hydroxide 30 ml 04/18/20 18:48 Magnesium Hydrox/Alum Hydrox 30 Ml Oral.Susp PO Q6H PRN Heartburn/Nausea Divalproex Sodium 1,000 mg 04/17/20 21:00 04/30/20 20:30 Divalproex Sodium Er 500 Mg Tab.Er.24h PO 1,000 mg BEDTIME DEVONTE Administration Divalproex Sodium 250 mg 04/22/20 09:00 05/01/20 08:39 Divalproex Sodium 250 Mg Tablet.Dr PO 250 mg DAILY DEVONTE Administration Docusate Sodium 100 mg 04/29/20 21:00 05/01/20 08:39 Docusate Sodium 100 Mg Capsule PO 100 mg BID DEVONTE Administration Finasteride 5 mg 04/17/20 14:00 05/01/20 08:40 Finasteride 5 Mg Tablet PO 5 mg DAILY DEVONTE Administration Hydroxyzine HCl 25 mg 04/18/20 18:48 04/29/20 20:21 Hydroxyzine Hcl 25 Mg Tablet PO 25 mg BEDTIME PRN Administration Anxiety [address] Carbonate 300 mg 04/29/20 21:00 05/01/20 08:[address] Carbonate 300 Mg Capsule PO 300 mg BID DEVONTE Administration Lorazepam 1 mg 04/29/20 17:54 05/01/20 10:00 Lorazepam 1 Mg Tablet PO 1 mg Q4H PRN Administration agitation Magnesium Hydroxide 30 ml 04/18/20 18:48 04/29/20 13:52 Milk Of Magnesia 30 Ml Oral.Susp PO 30 ml DAILY PRN Administration Constipation Metoprolol Tartrate 25 mg 04/17/20 14:00 05/01/20 08:40 Metoprolol Tartrate 50 Mg Tablet PO 25 mg BID DEVONTE Administration Protocol Olanzapine 5 mg 04/19/20 07:01 05/01/20 10:00 Olanzapine 5 Mg Tablet PO 5 mg Q4H PRN Administration Psychosis,blake Olanzapine 20 mg 04/21/20 21:00 04/30/20 20:30 Olanzapine 10 Mg Tablet PO 20 mg BEDTIME DEVONTE Administration Trazodone HCl 100 mg 04/17/20 13:50 05/01/20 00:53 Trazodone Hcl 100 Mg Tablet PO 100 mg BEDTIME PRN Administration insomnia Trazodone HCl 50 mg 04/19/20 00:56 05/01/20 02:37 Trazodone Hcl 50 Mg Tablet PO 50 mg BEDTIME PRN Administration Insomnia Vitamin D 25 mcg 04/22/20 09:00 05/01/20 08:40 Cholecalciferol (Vitamin D3) 25 Mcg Tablet PO 25 mcg DAILY DEVONTE Administration Allergies Allergies Allergy/AdvReac Type Severity Reaction Status Date / Time haloperidol [From HALDOL] Allergy Unknown UNKNOWN Unverified 12/03/19 15:27 Helidac Allergy Unknown seizure Uncoded 07/28/19 00:00 and stiffness Assessment & Plan Impression: pt floridly psychotic/manic; taking meds. Pt disorganized, sometimes intrusive, but generally pleasant and redirectable. pt reports trouble swallowing will order med consult for swallow eval dx: schizoaffective, bipolar type plan: Med consult to assess for swallow eval continue current tx plan labs reviewed and values grossly stable with mildly elevated lft's no changes to current tx plan at this time Greater than 50% of the session was spent on counseling and/or coordination of care Reason for contiued inpatient stay Substantial Risk for: med/psych decompensation
[2020-05-01 18:00] VITALS: BP 198/75; PULSE 83; TEMP 36.6
[2020-05-01] MEDS: OLANZapine 10 MG TABLET 20 MG PO (21:29)
[2020-05-01 21:30] VITALS: BP 198/75; PULSE 83
[2020-05-01] MEDS: Divalproex Sodium ER 500 MG TAB.ER.24H 1000 MG PO (21:31)
[2020-05-02 00:35] VITALS: BP 121/86; PULSE 78; RESP 18; O2SAT 97
[2020-05-02 06:05] VITALS: BP 121/78; PULSE 76; RESP 16; TEMP 36.1; O2SAT 98
[2020-05-02 08:44] VITALS: BP 121/78; PULSE 76
[2020-05-02] MEDS: Metoprolol Tartrate 50 MG TABLET 25 MG PO ×2 (08:44→20:02)
[2020-05-02] MEDS: Lithium Carbonate 300 MG CAPSULE PO ×2 (08:44→20:01)
[2020-05-02] MEDS: Cholecalciferol (Vitamin D3) 25 MCG TABLET PO (08:44)
[2020-05-02] MEDS: Divalproex Sodium 250 MG TABLET.DR PO (08:44)
[2020-05-02] MEDS: Finasteride 5 MG TABLET PO (08:44)
[2020-05-02] MEDS: Docusate Sodium 100 MG CAPSULE PO ×2 (08:44→20:04)
--- NOTE | 2020-05-02 10:09 | P.PNPSI_ITS ---
Subjective Subjective Date of Service: 05/02/20 Reason For Visit: Bipolar disorder Interim History: Pt seen, chart reviewed, case discussed vitals reviewed Labs reviewed:no new labs pt remains unchanged, floridly manic/psychotic, intrusive and disorganized but not threatening and redirectable. Medication Compliance: Yes Mental Status Exam Mental Status Exam Narrative: Patient Appearance: Disheveled and Unkempt Patient Orientation: Person Level of Consciousness: Awake and Alert Patient Behavior: Wandering, Invasion - Personal Space and Confused Mood Description: Labile Affect Description: Labile Ability to Follow Directions: Poor Speech Pattern: Garbled Thought Process: Confusion Thought Content: positive for Disorganized Judgment/insight: Poor Diagnostics Vital Signs (24Hr): Vital Signs - 24 hr 05/01/20 18:00 05/01/20 21:30 05/02/20 00:35 Temperature 97.8 F Pulse Rate 83 83 78 Respiratory Rate 18 Blood Pressure 198/75 H 198/75 H 121/86 Pulse Oximetry 97 05/02/20 06:05 05/02/20 08:44 Temperature 96.9 F Pulse Rate 76 76 Respiratory Rate 16 Blood Pressure 121/78 121/78 Pulse Oximetry 98 Body Mass Index 0.0 Labs Results: 04/30/20 13:36 04/30/20 13:36 Labs: Laboratory Results - last 48 hr 04/30/20 04/30/20 13:36 13:36 WBC 7.7 RBC 3.86 L Hgb 11.8 L Hct 37.4 L MCV 96.9 MCH 30.6 MCHC 31.6 RDW 14.7 Plt Count 184 MPV 9.5 Immature Gran % (Auto) 0.4 Neut % (Auto) 60.5 Lymph % (Auto) 24.5 [place] % (Auto) 10.6 Eos % (Auto) 3.6 Baso % (Auto) 0.4 Lymph # (Auto) 1.9 [place] # (Auto) 0.8 Eos # (Auto) 0.3 Baso # (Auto) 0.0 Abs Immat Gran (auto) 0.03 Absolute Neuts (auto) 4.7 Absolute Nucleated RBC 0.000 Nucleated RBC % (auto) 0.0 Sodium 141 Potassium 5.1 Chloride 105 Carbon Dioxide 29 Anion Gap 12 BUN 18 H Creatinine 1.22 Estim Creat Clear Calc TNP Estimated GFR > 60 Total Bilirubin 0.6 Direct Bilirubin 0.2 AST 55 H ALT 77 H Alkaline Phosphatase 50 Total Protein 6.9 Albumin 4.4 Imaging Radiology Impressions: ITS Impressions Chest X-Ray 04/17/20 07:27 IMPRESSION: No acute cardiopulmonary findings Head CT 04/17/20 07:27 IMPRESSION: No acute intracranial findings. Sinus disease as described. Medications Medications Current Medications Generic Name Dose Route Start Last Admin Trade Name Freq PRN Reason Stop Dose Admin Acetaminophen 650 mg 04/18/20 18:48 05/01/20 00:58 Acetaminophen 325 Mg Tablet PO 650 mg Q6H PRN Administration Headache/Pain Mild Scale (1-3) Al Hydroxide/Mg Hydroxide 30 ml 04/18/20 18:48 Magnesium Hydrox/Alum Hydrox 30 Ml Oral.Susp PO Q6H PRN Heartburn/Nausea Divalproex Sodium 1,000 mg 04/17/20 21:00 05/01/20 21:31 Divalproex Sodium Er 500 Mg Tab.Er.24h PO 1,000 mg BEDTIME DEVONTE Administration Divalproex Sodium 250 mg 04/22/20 09:00 05/02/20 08:44 Divalproex Sodium 250 Mg Tablet.Dr PO 250 mg DAILY DEVONTE Administration Docusate Sodium 100 mg 04/29/20 21:00 05/02/20 08:44 Docusate Sodium 100 Mg Capsule PO 100 mg BID DEVONTE Administration Finasteride 5 mg 04/17/20 14:00 05/02/20 08:44 Finasteride 5 Mg Tablet PO 5 mg DAILY DEVONTE Administration Hydroxyzine HCl 25 mg 04/18/20 18:48 04/29/20 20:21 Hydroxyzine Hcl 25 Mg Tablet PO 25 mg BEDTIME PRN Administration Anxiety [place] Carbonate 300 mg 04/29/20 21:00 05/02/20 08:44 [place] Carbonate 300 Mg Capsule PO 300 mg BID DEVONTE Administration Lorazepam 1 mg 04/29/20 17:54 05/01/20 16:43 Lorazepam 1 Mg Tablet PO 1 mg Q4H PRN Administration agitation Magnesium Hydroxide 30 ml 04/18/20 18:48 04/29/20 13:52 Milk Of Magnesia 30 Ml Oral.Susp PO 30 ml DAILY PRN Administration Constipation Metoprolol Tartrate 25 mg 04/17/20 14:00 05/02/20 08:44 Metoprolol Tartrate 50 Mg Tablet PO 25 mg BID DEVONTE Administration Protocol Olanzapine 5 mg 04/19/20 07:01 05/01/20 16:43 Olanzapine 5 Mg Tablet PO 5 mg Q4H PRN Administration Psychosis,blake Olanzapine 20 mg 04/21/20 21:00 05/01/20 21:29 Olanzapine 10 Mg Tablet PO 20 mg BEDTIME DEVONTE Administration Trazodone HCl 50 mg 04/19/20 00:56 05/01/20 02:37 Trazodone Hcl 50 Mg Tablet PO 50 mg BEDTIME PRN Administration Insomnia Trazodone HCl 100 mg 05/01/20 21:00 05/01/20 21:29 Trazodone Hcl 100 Mg Tablet PO 100 mg BEDTIME DEVONTE Administration Vitamin D 25 mcg 04/22/20 09:00 05/02/20 08:44 Cholecalciferol (Vitamin D3) 25 Mcg Tablet PO 25 mcg DAILY DEVONTE Administration Allergies Allergies Allergy/AdvReac Type Severity Reaction Status Date / Time haloperidol [From HALDOL] Allergy Unknown UNKNOWN Unverified 12/03/19 15:27 Helidac Allergy Unknown seizure Uncoded 07/28/19 00:00 and stiffness Assessment & Plan Impression: pt floridly psychotic/manic; taking meds. Pt disorganized, sometimes intrusive, but generally pleasant and redirectable. pt reports trouble swallowing dr. simon? internal med doc communicated to nursing to order GI consult and swallow eval dx: schizoaffective, bipolar type plan: consult to assess for swallow eval continue current tx plan labs reviewed and values grossly stable with mildly elevated lft's no changes to current tx plan at this time Greater than 50% of the session was spent on counseling and/or coordination of care Reason for contiued inpatient stay Substantial Risk for: med/psych decompensation
[2020-05-02] MEDS: Acetaminophen 325 MG TABLET 650 MG PO ×2 (11:25→20:01)
[2020-05-02] MEDS: OLANZapine 5 MG TABLET PO ×2 (11:25→16:36)
[2020-05-02] MEDS: LORazepam 1 MG TABLET PO (16:36)
[2020-05-02 19:30] VITALS: BP 103/79; PULSE 84; TEMP 36.6
[2020-05-02] MEDS: OLANZapine 10 MG TABLET 20 MG PO (20:01)
[2020-05-02 20:02] VITALS: BP 103/59; PULSE 84
[2020-05-02] MEDS: traZODone HCL 100 MG TABLET PO (20:02)
[2020-05-02] MEDS: Divalproex Sodium ER 500 MG TAB.ER.24H 1000 MG PO (20:04)
[2020-05-03 06:25] VITALS: BP 105/69; PULSE 81; RESP 16; TEMP 36.3; O2SAT 96
[2020-05-03] MEDS: LORazepam 1 MG TABLET PO ×2 (07:12→17:35)
[2020-05-03] MEDS: OLANZapine 5 MG TABLET PO ×2 (07:12→17:35)
[2020-05-03] MEDS: Lithium Carbonate 300 MG CAPSULE PO ×2 (08:23→21:33)
[2020-05-03] MEDS: Divalproex Sodium 250 MG TABLET.DR PO (08:23)
[2020-05-03] MEDS: Metoprolol Tartrate 50 MG TABLET 25 MG PO ×2 (08:23→21:33)
[2020-05-03] MEDS: Finasteride 5 MG TABLET PO (08:23)
[2020-05-03] MEDS: Cholecalciferol (Vitamin D3) 25 MCG TABLET PO (08:23)
[2020-05-03] MEDS: Docusate Sodium 100 MG CAPSULE PO ×2 (08:23→21:32)
--- NOTE | 2020-05-03 17:22 | P.PNPSI_ITS ---
Subjective Subjective Date of Service: 05/03/20 Reason For Visit: Bipolar disorder Subjective Notes: Conditional Voluntary (HCP activated) Interim History: Seen by speech services today for reports of difficult swallowing who recommends-chopped/adv solids NDD3; thin liquids with pills whole in puree or liquid (pt preference/tolerance); total supervision recommended, universal aspiration precautions. Pt reported globus/pain sensation with swallowing at the level of sternum notch to hospitalist. Recommended GI consult with pt's hx of esophageal stricutre and MBSS. Both were ordered-consult much appreciated. Remains labile, delusional. Medication Compliance: Yes Side effects from medications: Yes (Atarax discontinued) Attending Groups: No Review of Systems Reports behavioral changes Psychiatric: Reports behavioral changes, Reports difficulty concentrating, Reports auditory hallucinations, Reports irritability, Reports mood swings, Reports paranoia, Reports visual hallucinations and Reports hallucinations Mental Status Exam Mental Status Exam Patient Appearance: Disheveled Patient Orientation: Person Level of Consciousness: Alert Patient Behavior: Talkative, Hyperactive, Suspicious, Anxious, Distractible and Impulsive Mood Description: Labile Affect Description: Labile Patient Cognition Impaired: Yes Ability to Follow Directions: Fair Speech Pattern: Slurred, Perseverating, Garbled, Spontaneous Speech, Rambling, Excessive, Loud, Pressured, Excited and Poor Articulation Memory Description: Remote Impaired, Immediate Impaired, Administrative Accountant Impaired, Episodic Impaired and Recent Impaired Hallucinations: Auditory and Visual Delusions: Paranoid Ideation Thought Process: Disoriented, Racing, Illogical, Distracted and Rumination Thought Content: positive for Flight of Ideas, positive for Disoriented, positive for Racing, positive for Preoccupation, positive for Loose Associations, positive for Incoherent, positive for Tangential and positive for Disorganized Depressive Symptoms: Diff. Making Decisions, Increased Irritability and Difficulty Concentrating Abnormal Motor Activity Signs and Symptoms: Hyperactivity Judgement: Poor Diagnostics Vital Signs (24Hr): Vital Signs - 24 hr 05/02/20 19:30 05/02/20 20:02 05/03/20 06:25 Temperature 97.9 F 97.4 F Pulse Rate 84 84 81 Respiratory Rate 16 Blood Pressure 103/79 103/59 L 105/69 Pulse Oximetry 96 Body Mass Index 0.0 Labs Results: 04/30/20 13:36 04/30/20 13:36 Imaging Radiology Impressions: ITS Impressions Chest X-Ray 04/17/20 07:27 IMPRESSION: No acute cardiopulmonary findings Head CT 04/17/20 07:27 IMPRESSION: No acute intracranial findings. Sinus disease as described. Medications Medications Current Medications Generic Name Dose Route Start Last Admin Trade Name Markq PRN Reason Stop Dose Admin Acetaminophen 650 mg 04/18/20 18:48 05/02/20 20:01 Acetaminophen 325 Mg Tablet PO 650 mg Q6H PRN Administration Headache/Pain Mild Scale (1-3) Al Hydroxide/Mg Hydroxide 30 ml 04/18/20 18:48 Magnesium Hydrox/Alum Hydrox 30 Ml Oral.Susp PO Q6H PRN Heartburn/Nausea Divalproex Sodium 1,000 mg 04/17/20 21:00 05/02/20 20:04 Divalproex Sodium Er 500 Mg Tab.Er.24h PO 1,000 mg BEDTIME DEVONTE Administration Divalproex Sodium 250 mg 04/22/20 09:00 05/03/20 08:23 Divalproex Sodium 250 Mg Tablet.Dr PO 250 mg DAILY DEVONTE Administration Docusate Sodium 100 mg 04/29/20 21:00 05/03/20 08:23 Docusate Sodium 100 Mg Capsule PO 100 mg BID DEVONTE Administration Finasteride 5 mg 04/17/20 14:00 05/03/20 08:23 Finasteride 5 Mg Tablet PO 5 mg DAILY DEVONTE Administration [place] Carbonate 300 mg 04/29/20 21:00 05/03/20 08:23 [place] Carbonate 300 Mg Capsule PO 300 mg BID DEVONTE Administration Lorazepam 1 mg 04/29/20 17:54 05/03/20 07:12 Lorazepam 1 Mg Tablet PO 1 mg Q4H PRN Administration agitation Magnesium Hydroxide 30 ml 04/18/20 18:48 04/29/20 13:52 Milk Of Magnesia 30 Ml Oral.Susp PO 30 ml DAILY PRN Administration Constipation Metoprolol Tartrate 25 mg 04/17/20 14:00 05/03/20 08:23 Metoprolol Tartrate 50 Mg Tablet PO 25 mg BID DEVONTE Administration Protocol Olanzapine 5 mg 04/19/20 07:01 05/03/20 07:12 Olanzapine 5 Mg Tablet PO 5 mg Q4H PRN Administration Psychosis,blake Olanzapine 20 mg 04/21/20 21:00 05/02/20 20:01 Olanzapine 10 Mg Tablet PO 20 mg BEDTIME DEVONTE Administration Trazodone HCl 50 mg 04/19/20 00:56 05/01/20 02:37 Trazodone Hcl 50 Mg Tablet PO 50 mg BEDTIME PRN Administration Insomnia Trazodone HCl 100 mg 05/01/20 21:00 05/02/20 20:02 Trazodone Hcl 100 Mg Tablet PO 100 mg BEDTIME DEVONTE Administration Vitamin D 25 mcg 04/22/20 09:00 05/03/20 08:23 Cholecalciferol (Vitamin D3) 25 Mcg Tablet PO 25 mcg DAILY DEVONTE Administration Allergies Allergies Allergy/AdvReac Type Severity Reaction Status Date / Time haloperidol [From HALDOL] Allergy Unknown UNKNOWN Unverified 12/03/19 15:27 Helidac Allergy Unknown seizure Uncoded 07/28/19 00:00 and stiffness Assessment & Plan Assessment & Plan (1) Schizoaffective disorder, bipolar type: Status: Acute Code(s): F25.0 - Schizoaffective disorder, bipolar type Assessment and Plan: -lithium level 05/04/20 -Continue current regime Greater than 50% of the session was spent on counseling and/or coordination of care Reason for contiued inpatient stay Substantial Risk for: harm to self, harm to others and rapid decompensation
--- NOTE | 2020-05-03 17:51 | P.PNPSI_ITS ---
Subjective Subjective Date of Service: 05/03/20 Reason For Visit: Bipolar disorder Diagnostics Vital Signs (24Hr): Vital Signs - 24 hr 05/02/20 19:30 05/02/20 20:02 05/03/20 06:25 Temperature 97.9 F 97.4 F Pulse Rate 84 84 81 Respiratory Rate 16 Blood Pressure 103/79 103/59 L 105/69 Pulse Oximetry 96 Body Mass Index 0.0 Labs Results: 04/30/20 13:36 04/30/20 13:36 Imaging Radiology Impressions: ITS Impressions Chest X-Ray 04/17/20 07:27 IMPRESSION: No acute cardiopulmonary findings Head CT 04/17/20 07:27 IMPRESSION: No acute intracranial findings. Sinus disease as described. Medications Medications Current Medications Generic Name Dose Route Start Last Admin Trade Name Freq PRN Reason Stop Dose Admin Acetaminophen 650 mg 04/18/20 18:48 05/02/20 20:01 Acetaminophen 325 Mg Tablet PO 650 mg Q6H PRN Administration Headache/Pain Mild Scale (1-3) Al Hydroxide/Mg Hydroxide 30 ml 04/18/20 18:48 Magnesium Hydrox/Alum Hydrox 30 Ml Oral.Susp PO Q6H PRN Heartburn/Nausea Divalproex Sodium 1,000 mg 04/17/20 21:00 05/02/20 20:04 Divalproex Sodium Er 500 Mg Tab.Er.24h PO 1,000 mg BEDTIME DEVONTE Administration Divalproex Sodium 250 mg 04/22/20 09:00 05/03/20 08:23 Divalproex Sodium 250 Mg Tablet.Dr PO 250 mg DAILY DEVONTE Administration Docusate Sodium 100 mg 04/29/20 21:00 05/03/20 08:23 Docusate Sodium 100 Mg Capsule PO 100 mg BID DEVONTE Administration Finasteride 5 mg 04/17/20 14:00 05/03/20 08:23 Finasteride 5 Mg Tablet PO 5 mg DAILY DEVONTE Administration [place] Carbonate 300 mg 04/29/20 21:00 05/03/20 08:23 [place] Carbonate 300 Mg Capsule PO 300 mg BID DEVONTE Administration Lorazepam 1 mg 04/29/20 17:54 05/03/20 07:12 Lorazepam 1 Mg Tablet PO 1 mg Q4H PRN Administration agitation Magnesium Hydroxide 30 ml 04/18/20 18:48 04/29/20 13:52 Milk Of Magnesia 30 Ml Oral.Susp PO 30 ml DAILY PRN Administration Constipation Metoprolol Tartrate 25 mg 04/17/20 14:00 05/03/20 08:23 Metoprolol Tartrate 50 Mg Tablet PO 25 mg BID DEVONTE Administration Protocol Olanzapine 5 mg 04/19/20 07:01 05/03/20 07:12 Olanzapine 5 Mg Tablet PO 5 mg Q4H PRN Administration Psychosis,blake Olanzapine 20 mg 04/21/20 21:00 05/02/20 20:01 Olanzapine 10 Mg Tablet PO 20 mg BEDTIME DEVONTE Administration Trazodone HCl 50 mg 04/19/20 00:56 05/01/20 02:37 Trazodone Hcl 50 Mg Tablet PO 50 mg BEDTIME PRN Administration Insomnia Trazodone HCl 100 mg 05/01/20 21:00 05/02/20 20:02 Trazodone Hcl 100 Mg Tablet PO 100 mg BEDTIME DEVONTE Administration Vitamin D 25 mcg 04/22/20 09:00 05/03/20 08:23 Cholecalciferol (Vitamin D3) 25 Mcg Tablet PO 25 mcg DAILY DEVONTE Administration Allergies Allergies Allergy/AdvReac Type Severity Reaction Status Date / Time haloperidol [From HALDOL] Allergy Unknown UNKNOWN Unverified 12/03/19 15:27 Helidac Allergy Unknown seizure Uncoded 07/28/19 00:00 and stiffness Assessment & Plan Greater than 50% of the session was spent on counseling and/or coordination of care
[2020-05-03 18:00] VITALS: TEMP 36.6
[2020-05-03] MEDS: Divalproex Sodium ER 500 MG TAB.ER.24H 1000 MG PO (21:32)
[2020-05-03] MEDS: traZODone HCL 100 MG TABLET PO (21:32)
[2020-05-03] MEDS: OLANZapine 10 MG TABLET 20 MG PO (21:32)
[2020-05-03 21:33] VITALS: BP 134/77; PULSE 102
[2020-05-04] MEDS: LORazepam 1 MG TABLET PO ×2 (02:54→09:07)
[2020-05-04] MEDS: traZODone HCL 50 MG TABLET PO (02:54)
[2020-05-04 05:45] VITALS: BP 120/67; PULSE 81; RESP 16; TEMP 36.3; O2SAT 97
[2020-05-04 08:28] LABS: Anion Gap 12 (12-20); Blood Urea Nitrogen 23 mg/dL (9-16); Calcium 9.7 mg/dL (8.4-10.2); Carbon Dioxide 27 mmol/L (22-29); Chloride 106 mmol/L (96-108); Estimated Glomerular Filt Rate 54; Glucose Random 127 mg/dL (60-115); Potassium 4.5 mmol/L (3.3-5.1); Sodium 140 mmol/L (135-145)
[2020-05-04] MEDS: Metoprolol Tartrate 50 MG TABLET 25 MG PO ×2 (09:07→20:10)
[2020-05-04] MEDS: Finasteride 5 MG TABLET PO (09:07)
[2020-05-04] MEDS: Lithium Carbonate 300 MG CAPSULE PO ×2 (09:07→20:09)
[2020-05-04] MEDS: Divalproex Sodium 250 MG TABLET.DR PO (09:07)
[2020-05-04] MEDS: Docusate Sodium 100 MG CAPSULE PO ×2 (09:07→20:08)
[2020-05-04] MEDS: Cholecalciferol (Vitamin D3) 25 MCG TABLET PO (09:07)
[2020-05-04] MEDS: OLANZapine 5 MG TABLET PO (09:07)
[2020-05-04 10:06] LABS: Lithium 0.59 mmol/L (0.60-1.20)
--- NOTE | 2020-05-04 10:41 | MHC.SLORD ---
Pt seen yesterday for bedside swallow evaluation. APPRENTICE recommended CHOPPED/ADVANCED (NDD3) solids and THIN liquids with PILLS WHOLE IN PUREE or LIQUID depending on pt's tolerance/preference. Pt observed to be impulsive and forgetful when eating, thus total supervision is recommended. The following precautions apply: -upright at 90 degrees when eating and drinking -small bites and sips -alternate solids with liquids -reminders to chew food well -oral cavity checks to ensure tolerance -reminders not to talk while eating -frequent oral care Pt complained of globus sensation at level of sternum notch and pain when swallowing. MBSS recommended and scheduled for today, 05/04 at 2pm. Name: Yomi Forman Date of : 1960 Age: 60 Date of Registration: 04/18/20 Speech Language Pathology Order Status:
--- NOTE | 2020-05-04 17:06 | PM.EVENT ---
Event Note Date of Service: 05/04/20 Event Note: GI Consult- Full note dictated-Hx via patient(limited), RN, EMR, and my office notes Imp: Reported sense of dysphagia, along with some drooling. He has had similar complaints in the past. He had a negative EGD in 2011, although I did perform a balloon dilation at that time but without any definitive esophageal stricture nor ring noted. I saw him in the office in 10/2019 for similar complaints and he underwent a completely normal Barium swallow, including a Barium tablet, in 10/2019. He had an evaluation with REPAIRING CALIBRATOR and did have a modified Barium swallow today, the results of which are pending. Overall, I feel his symptoms are most likely related to some combination of oropharyngeal dysphagia and a component of problems eating in relation to his current exacerbation of his psychiatric issues with perhaps inability to focus and concentrate while eating. I doubt he has esophageal pathology that would require an EGD for evaluation given the negative Barium swallow in 10/2019 and the negative EGD in 2011. Rec: Await results from the MBS and recs from the REPAIRING CALIBRATOR team. Empiric PPI Rx to treat any possible component of GERD and esophageal spasm. Upper endoscopy if the MBS suggests a need for that, or if the REPAIRING CALIBRATOR team thinks it would be helpful. Observe to see if the swalowing improves as his psych issues hopefully improve. Thanks.
--- NOTE | 2020-05-04 17:50 | MHC.SLORD ---
MBSS completed. No evidence of aspiration or penetration. Due to mental status, recommend continue chopped/advanced (NDD3) solids and thin liquids. Name: Yomi Forman Date of : 1960 Age: 60 Date of Registration: 04/18/20 Speech Language Pathology Order Status:
--- NOTE | 2020-05-04 17:53 | P.PNPSI_ITS ---
Subjective Subjective Date of Service: 05/04/20 Reason For Visit: Bipolar disorder Subjective Notes: Conditional Voluntary (HCP activated) Interim History: Labile, confused, some clear moments. [place] level 0.59. Medication Compliance: Yes Side effects from medications: No Attending Groups: No Review of Systems Reports behavioral changes and Reports confusion Psychiatric: Reports abnormal sleep pattern, Reports behavioral changes, Reports confusion, Reports difficulty concentrating, Reports auditory hallucinations, Reports irritability, Reports mood swings, Reports paranoia, Reports visual hallucinations and Reports hallucinations Mental Status Exam Mental Status Exam Patient Appearance: Disheveled Patient Orientation: Person Level of Consciousness: Awake and Restless Patient Behavior: Talkative, Restless, Wandering, Anxious, Distractible and Good Eye Contact Mood Description: Labile Affect Description: Labile Patient Cognition Impaired: Yes Ability to Follow Directions: Fair Speech Pattern: Garbled, Spontaneous Speech, Rambling, Cofabulation, Rapid, Excessive, Pressured and Poor Articulation Memory Description: Remote Impaired, Immediate Impaired, Immigration Patrol Inspector Impaired, Episodic Impaired, Recent Impaired, Working Impaired and Semantic Impaired Hallucinations: Auditory and Visual Delusions: Paranoid Ideation and Present Thought Process: Disoriented, Illogical, Distracted and Word Salad Thought Content: positive for Flight of Ideas, positive for Racing, positive for Preoccupation, positive for Loose Associations and positive for Tangential Abnormal Motor Activity Signs and Symptoms: Restlessness Judgement: Poor Diagnostics Vital Signs (24Hr): Vital Signs - 24 hr 05/03/20 18:00 05/03/20 21:33 05/04/20 05:45 Temperature 97.8 F 97.4 F Pulse Rate 102 H 81 Respiratory Rate 16 Blood Pressure 134/77 120/67 Pulse Oximetry 97 Body Mass Index 0.0 Labs Results: 04/30/20 13:36 05/04/20 07:43 Labs: Laboratory Results - last 48 hr 05/04/20 05/04/20 07:43 07:43 Sodium 140 Potassium 4.5 Chloride 106 Carbon Dioxide 27 Anion Gap 12 BUN 23 H Creatinine 1.36 Estim Creat Clear Calc TNP Estimated GFR 54 Random Glucose 127 H Calcium 9.7 [place] 0.59 L Imaging Radiology Impressions: ITS Impressions Chest X-Ray 04/17/20 07:27 IMPRESSION: No acute cardiopulmonary findings Head CT 04/17/20 07:27 IMPRESSION: No acute intracranial findings. Sinus disease as described. Modified Barium Swallow 05/04/20 15:36 IMPRESSION: No significant abnormality identified on modified barium swallow. Please refer to speech pathology report for details. Medications Medications Current Medications Generic Name Dose Route Start Last Admin Trade Name Freq PRN Reason Stop Dose Admin Acetaminophen 650 mg 04/18/20 18:48 05/02/20 20:01 Acetaminophen 325 Mg Tablet PO 650 mg Q6H PRN Administration Headache/Pain Mild Scale (1-3) Al Hydroxide/Mg Hydroxide 30 ml 04/18/20 18:48 Magnesium Hydrox/Alum Hydrox 30 Ml Oral.Susp PO Q6H PRN Heartburn/Nausea Divalproex Sodium 1,000 mg 04/17/20 21:00 05/03/20 21:32 Divalproex Sodium Er 500 Mg Tab.Er.24h PO 1,000 mg BEDTIME DEVONTE Administration Divalproex Sodium 250 mg 04/22/20 09:00 05/04/20 09:07 Divalproex Sodium 250 Mg Tablet. PO 250 mg DAILY DEVONTE Administration Docusate Sodium 100 mg 04/29/20 21:00 05/04/20 09:07 Docusate Sodium 100 Mg Capsule PO 100 mg BID DEVONTE Administration Finasteride 5 mg 04/17/20 14:00 05/04/20 09:07 Finasteride 5 Mg Tablet PO 5 mg DAILY DEVONTE Administration [place] Carbonate 300 mg 04/29/20 21:00 05/04/20 09:07 [place] Carbonate 300 Mg Capsule PO 300 mg BID DEVONTE Administration Lorazepam 1 mg 04/29/20 17:54 05/04/20 09:07 Lorazepam 1 Mg Tablet PO 1 mg Q4H PRN Administration agitation Magnesium Hydroxide 30 ml 04/18/20 18:48 04/29/20 13:52 Milk Of Magnesia 30 Ml Oral.Susp PO 30 ml DAILY PRN Administration Constipation Metoprolol Tartrate 25 mg 04/17/20 14:00 05/04/20 09:07 Metoprolol Tartrate 50 Mg Tablet PO 25 mg BID DEVONTE Administration Protocol Olanzapine 5 mg 04/19/20 07:01 05/04/20 09:07 Olanzapine 5 Mg Tablet PO 5 mg Q4H PRN Administration Psychosis,blake Olanzapine 20 mg 04/21/20 21:00 05/03/20 21:32 Olanzapine 10 Mg Tablet PO 20 mg BEDTIME DEVONTE Administration Omeprazole 20 mg 05/04/20 17:20 Omeprazole 20 Mg Capsule. PO DAILY@0630 DEVONTE Trazodone HCl 50 mg 04/19/20 00:56 05/04/20 02:54 Trazodone Hcl 50 Mg Tablet PO 50 mg BEDTIME PRN Administration Insomnia Trazodone HCl 100 mg 05/01/20 21:00 05/03/20 21:32 Trazodone Hcl 100 Mg Tablet PO 100 mg BEDTIME DEVONTE Administration Vitamin D 25 mcg 04/22/20 09:00 05/04/20 09:07 Cholecalciferol (Vitamin D3) 25 Mcg Tablet PO 25 mcg DAILY DEVONTE Administration Allergies Allergies Allergy/AdvReac Type Severity Reaction Status Date / Time haloperidol [From HALDOL] Allergy Unknown UNKNOWN Unverified 12/03/19 15:27 Helidac Allergy Unknown seizure Uncoded 07/28/19 00:00 and stiffness Assessment & Plan Assessment & Plan (1) Schizoaffective disorder, bipolar type: Status: Acute Code(s): F25.0 - Schizoaffective disorder, bipolar type Assessment and Plan: -Increase [place] to 300 mg tid (2) Anemia: Status: Acute Code(s): D64.9 - Anemia, unspecified Greater than 50% of the session was spent on counseling and/or coordination of care Reason for contiued inpatient stay Substantial Risk for: harm to self, harm to others, inability to function and med/psych decompensation
[2020-05-04 18:00] VITALS: BP 123/89; PULSE 93; TEMP 36.6
[2020-05-04] MEDS: Omeprazole 20 MG CAPSULE.DR PO (19:10)
--- NOTE | 2020-05-04 19:24 | CONS_ITS ---
DATE OF SERVICE: 05/04/2020 REASON FOR CONSULTATION: Dysphagia. HISTORY OF PRESENT ILLNESS: This has been obtained from the patient although currently he is a relatively poor historian, from his nurse, from the medical record, and my office notes. The patient is a 60-year-old male, who is well known to me from previous office visits and outpatient procedures. I diagnosed him with colon cancer in 2011 and he has had undergone subsequent followup colonoscopies including the most recent one in April of 2019 with removal of a tubular adenoma. He did have surgery for the colon cancer with Dr. Dian Jose in 2011. In reviewing his record, he has had a history of intermittent dysphagia. He underwent upper endoscopy in 2011 with the finding of no significant esophageal pathology and specifically no sign of any esophageal stricture nor esophageal ring. I did perform a balloon dilation at that time, but there really was no sign of narrowing. He had been on a PPI at that time and apparently had been doing better. However, I saw him in October of 2019 in the office for some trouble swallowing, although in discussion with him and his android programmer, it did not seem like he was having definitive dysphagia in relation to any esophageal disease. As such, I did not perform an endoscopy on him, but sent him for a barium swallow with a barium tablet. This was done in October of 2019 and was completely normal including easy passage of the barium tablet into the stomach. There was no sign of any aspiration at that time. He was admitted here recently due to worsening psychiatric issues in relation to his schizophrenia and psychosis. He has been noted to have some dysphagia and drooling. In discussion today, he really cannot give a cogent history. At times, I cannot really understand what he is saying and at times it seems that he is not really talking appropriately nor understanding everything I am saying. He did not have any drooling at the time of the visit, but his nurse did say he did have some drooling earlier. He was seen by the speech and language pathology team who felt that his trouble swallowing may be related to some impulsive behavior and rapid eating, which was compromising his swallowing. He went for a modified barium swallow today, the results of which are currently pending. The patient denies any vomiting. There has been no reported diarrhea, GI bleeding, nor abdominal pain. CURRENT MEDICATIONS: Include acetaminophen, vitamin D, Depakote, Colace, Proscar, lithium, Ativan p.r.n., antacids p.r.n., milk of magnesia p.r.n., metoprolol, Zyprexa, trazodone. PAST MEDICAL HISTORY: He has schizophrenia. Colon cancer as above involving the left colon, for which he underwent a left colectomy with Dr. Jose. He did not need any adjuvant treatment. Gastroesophageal reflux as above. Followup colonoscopies with removal of tubular adenomas, most recently in April 2019. Hypertension. Renal cancer in the right kidney treated with cryoablation in 2018. Cataract and lens implants. Left inguinal hernia surgery in [address] Amato. 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 FAMILY HISTORY: Paternal uncle had colon cancer and a sister had breast cancer. SOCIAL HISTORY: He is single. He does not smoke nor use any significant amounts of alcohol. REVIEW OF SYSTEMS: Not particularly obtainable at this time. PHYSICAL EXAMINATION: GENERAL: The patient is a pleasant, alert, somewhat cooperative male, but he really is not answering questions all that appropriately and at times I have a hard time understanding his speech. NECK: Supple without lymphadenopathy nor crepitus. ABDOMEN: Soft, nondistended, and nontender. LABORATORY DATA: Modified barium swallow was pending. Hemoglobin 11.8, white blood cell count 7.7, MCV 97, platelets 184,000. Normal electrolytes. BUN 23, creatinine 1.4, total bilirubin 0.6, AST 55, ALT 77, alkaline phosphatase 50, albumin 4.4. IMPRESSION: Given the patient's overall clinical history and his past medical history involving his swallowing and workup for that, I feel that his current symptomatology is not related to any significant esophageal disease. I suspect he is having a probable combination of both oropharyngeal dysphagia, possibly in relation to his underlying psychiatric disease, and a component of problems eating in relation to his psychiatric issues that are causing him to have inability to focus or concentrate adequately while eating. I doubt we are dealing with any esophageal pathology given the completely normal barium swallow 6 months ago as well as a negative upper endoscopy in the past when he was having similar symptoms. As such, I would hold off on upper endoscopy at the present time since I think the yield on that would be low. I shall await the results of the modified barium swallow and any further recommendations from the speech and language pathology team. I would add empiric PPI treatment to treat any possible component of reflux and esophageal spasm as well. An upper endoscopy can certainly be done if the modified barium swallow is suggestive of the need for that or the speech and language pathology team thinks that would be helpful. It would also be helpful to see if the swallowing improves as his psychiatric condition improves as well. I shall follow the patient with you here in the hospital. I will be available to perform an upper endoscopy if the need arises. Thank you for this consultation. MD MIMI Nair/MADELINE / [id number]
[2020-05-04] MEDS: OLANZapine 10 MG TABLET 20 MG PO (20:08)
[2020-05-04 20:10] VITALS: BP 135/81; PULSE 91
[2020-05-04] MEDS: traZODone HCL 100 MG TABLET PO (20:10)
[2020-05-04] MEDS: Divalproex Sodium ER 500 MG TAB.ER.24H 1000 MG PO (20:10)
[2020-05-05] MEDS: traZODone HCL 50 MG TABLET PO ×2 (01:55→23:46)
[2020-05-05] MEDS: OLANZapine 5 MG TABLET PO ×2 (01:55→14:58)
[2020-05-05 04:50] VITALS: BP 140/82; PULSE 85; RESP 16; TEMP 36.4; O2SAT 95
[2020-05-05] MEDS: Finasteride 5 MG TABLET PO (08:53)
[2020-05-05] MEDS: Omeprazole 20 MG CAPSULE.DR PO (08:55)
[2020-05-05] MEDS: Docusate Sodium 100 MG CAPSULE PO ×2 (08:55→20:55)
[2020-05-05] MEDS: Cholecalciferol (Vitamin D3) 25 MCG TABLET PO (08:56)
[2020-05-05] MEDS: Lithium Carbonate 300 MG CAPSULE PO ×3 (08:56→20:55)
[2020-05-05] MEDS: Divalproex Sodium 250 MG TABLET.DR PO (08:56)
[2020-05-05 08:57] VITALS: BP 109/58; PULSE 70
[2020-05-05] MEDS: Metoprolol Tartrate 50 MG TABLET 25 MG PO ×2 (08:57→20:54)
--- NOTE | 2020-05-05 10:59 | PC.NURSE ---
Upon routine chart review, it was noted pt has Haldol listed as an unverified allergy to Haldol. Attempted to verify by calling the 2 pharmacies listed on patient's chart. [facility] [place] and [facility] both called by this video game script writer and both report they have no verified allergies on patient. Unable to verify allergy to Haldol at this time.
[2020-05-05 17:08] VITALS: BP 118/87; PULSE 104; TEMP 37.5
[2020-05-05 17:18] VITALS: TEMP 37.6
--- NOTE | 2020-05-05 17:43 | P.PNPSI_ITS ---
Subjective Subjective Date of Service: 05/05/20 Reason For Visit: Bipolar disorder Subjective Notes: Conditional Voluntary (hcp activation) Interim History: labile, angry, euphoric, agitated, irritable, loud outbursts. tolerating medications. Depakote, Olanzapine, [place] are titrated, however with no overt signs of progress at this time. Medication Compliance: Yes Side effects from medications: No Attending Groups: No Review of Systems Reports behavioral changes Psychiatric: Reports behavioral changes, Reports auditory hallucinations, Report s irritability, Reports mood swings, Reports visual hallucinations and Reports hallucinations Mental Status Exam Mental Status Exam Patient Appearance: Disheveled Patient Orientation: Person Level of Consciousness: Awake, Disoriented, Restless and Alert Patient Behavior: Talkative, Hyperactive, Suspicious, Restless, Belligerent, Wandering, Swearing, Anxious, Distractible, Confused, Good Eye Contact, Impulsive and Pacing Mood Description: Euphoric, Happy, Suspicious, Relaxed, Hostile, Cheerful, Anxious, Labile, Angry, Nervous, Apprehensive and Expansive Affect Description: Labile Patient Cognition Impaired: Yes Ability to Follow Directions: Fair Speech Pattern: Perseverating, Impoverished, Difficulty Finding Words, Garbled, Spontaneous Speech, Rambling, Cofabulation, Loud, Pressured and Poor Articulation Memory Description: Remote Impaired, Immediate Impaired, Echo Technician Impaired, Episodic Impaired, Recent Impaired, Working Impaired and Semantic Impaired Hallucinations: Auditory and Visual Delusions: Paranoid Ideation, Grandiose and Present Thought Process: Disoriented, Incoherent, Racing, Illogical, Distracted and Word Salad Thought Content: positive for Flight of Ideas, positive for Racing, positive for Perseveration, positive for Poverty of Content, positive for Loose Associations, positive for Tangential and positive for Disorganized Depressive Symptoms: Increased Irritability Judgement: Poor Diagnostics Vital Signs (24Hr): Vital Signs - 24 hr 05/04/20 18:00 05/04/20 20:10 05/05/20 04:50 Temperature 97.8 F 97.5 F Pulse Rate 93 91 85 Respiratory Rate 16 Blood Pressure 123/89 135/81 140/82 H Pulse Oximetry 95 05/05/20 08:57 05/05/20 17:08 05/05/20 17:18 Temperature 99.5 F 99.6 F Pulse Rate 70 104 H Respiratory Rate Blood Pressure 109/58 L 118/87 Pulse Oximetry Body Mass Index 0.0 Labs Results: 04/30/20 13:36 05/04/20 07:43 Labs: Laboratory Results - last 48 hr 05/04/20 05/04/20 07:43 07:43 Sodium 140 Potassium 4.5 Chloride 106 Carbon Dioxide 27 Anion Gap 12 BUN 23 H Creatinine 1.36 Estim Creat Clear Calc TNP Estimated GFR 54 Random Glucose 127 H Calcium 9.7 [place] 0.59 L Imaging Radiology Impressions: ITS Impressions Chest X-Ray 04/17/20 07:27 IMPRESSION: No acute cardiopulmonary findings Head CT 04/17/20 07:27 IMPRESSION: No acute intracranial findings. Sinus disease as described. Modified Barium Swallow 05/04/20 15:36 IMPRESSION: No significant abnormality identified on modified barium swallow. Please refer to speech pathology report for details. Medications Medications Current Medications Generic Name Dose Route Start Last Admin Trade Name Freq PRN Reason Stop Dose Admin Acetaminophen 650 mg 04/18/20 18:48 05/02/20 20:01 Acetaminophen 325 Mg Tablet PO 650 mg Q6H PRN Administration Headache/Pain Mild Scale (1-3) Al Hydroxide/Mg Hydroxide 30 ml 04/18/20 18:48 Magnesium Hydrox/Alum Hydrox 30 Ml Oral.Susp PO Q6H PRN Heartburn/Nausea Divalproex Sodium 1,000 mg 04/17/20 21:00 05/04/20 20:10 Divalproex Sodium Er 500 Mg Tab.Er.24h PO 1,000 mg BEDTIME DEVONTE Administration Divalproex Sodium 250 mg 04/22/20 09:00 05/05/20 08:56 Divalproex Sodium 250 Mg Tablet.Dr PO 250 mg DAILY DEVONTE Administration Docusate Sodium 100 mg 04/29/20 21:00 05/05/20 08:55 Docusate Sodium 100 Mg Capsule PO 100 mg BID DEVONTE Administration Finasteride 5 mg 04/17/20 14:00 05/05/20 08:53 Finasteride 5 Mg Tablet PO 5 mg DAILY DEVONTE Administration [place] Carbonate 300 mg 05/04/20 21:00 05/05/20 14:57 [place] Carbonate 300 Mg Capsule PO 300 mg TID DEVONTE Administration Magnesium Hydroxide 30 ml 04/18/20 18:48 04/29/20 13:52 Milk Of Magnesia 30 Ml Oral.Susp PO 30 ml DAILY PRN Administration Constipation Metoprolol Tartrate 25 mg 04/17/20 14:00 05/05/20 08:57 Metoprolol Tartrate 50 Mg Tablet PO 25 mg BID DEVONTE Administration Protocol Olanzapine 5 mg 04/19/20 07:01 05/05/20 14:58 Olanzapine 5 Mg Tablet PO 5 mg Q4H PRN Administration Psychosis,blake Olanzapine 20 mg 04/21/20 21:00 05/04/20 20:08 Olanzapine 10 Mg Tablet PO 20 mg BEDTIME DEVONTE Administration Omeprazole 20 mg 05/04/20 17:20 05/05/20 08:55 Omeprazole 20 Mg Capsule. PO 20 mg DAILY@0630 DEVONTE Administration Trazodone HCl 50 mg 04/19/20 00:56 05/05/20 01:55 Trazodone Hcl 50 Mg Tablet PO 50 mg BEDTIME PRN Administration Insomnia Trazodone HCl 100 mg 05/01/20 21:00 05/04/20 20:10 Trazodone Hcl 100 Mg Tablet PO 100 mg BEDTIME DEVONTE Administration Vitamin D 25 mcg 04/22/20 09:00 05/05/20 08:56 Cholecalciferol (Vitamin D3) 25 Mcg Tablet PO 25 mcg DAILY DEVONTE Administration Allergies Allergies Allergy/AdvReac Type Severity Reaction Status Date / Time haloperidol [From HALDOL] Allergy Unknown UNKNOWN Unverified 12/03/19 15:27 Helidac Allergy Unknown seizure Uncoded 07/28/19 00:00 and stiffness Assessment & Plan Assessment & Plan (1) Schizoaffective disorder, bipolar type: Status: Acute Code(s): F25.0 - Schizoaffective disorder, bipolar type Assessment and Plan: -Continue current regime -Ammonia, Valproate levels -Encourage fluids. Greater than 50% of the session was spent on counseling and/or coordination of care Reason for contiued inpatient stay Substantial Risk for: inability to function, rapid decompensation and med/psych decompensation
[2020-05-05 18:00] VITALS: BP 118/87; PULSE 100; RESP 18; TEMP 37.7; O2SAT 93
--- NOTE | 2020-05-05 19:23 | PC.NURSE ---
Addendum entered by Joan Cotton RN 05/05/20 19:31: covid 19 test included influenza type a and b test rsv, rna qual test Original Note: administered covid test on pt. at 19:06, ordered by doc Bethany ansari. awaiting for test results
[2020-05-05 19:54] LABS: Influenza A PCR NEGATIVE (Negative); Influenza B PCR NEGATIVE (Negative); Resp Syncy Virus RNA Qual PCR NEGATIVE (Negative); SARS COV2 PCR INHOUSE NEGATIVE (Negative)
[2020-05-05 20:54] VITALS: BP 147/82; PULSE 98
[2020-05-05] MEDS: OLANZapine 10 MG TABLET 20 MG PO (20:54)
[2020-05-05] MEDS: traZODone HCL 100 MG TABLET PO (20:55)
[2020-05-05] MEDS: Acetaminophen 325 MG TABLET 650 MG PO (20:56)
[2020-05-05] MEDS: Divalproex Sodium ER 500 MG TAB.ER.24H 1000 MG PO (21:47)
[2020-05-06] MEDS: traZODone HCL 50 MG TABLET PO (02:57)
[2020-05-06] MEDS: OLANZapine 5 MG TABLET PO (02:57)
[2020-05-06] MEDS: Acetaminophen 325 MG TABLET 650 MG PO (02:58)
[2020-05-06 06:35] VITALS: BP 153/85; PULSE 91; RESP 16; TEMP 36.9; O2SAT 96
[2020-05-06 08:39] LABS: Ammonia 40 umol/L (13-55)
[2020-05-06] MEDS: Docusate Sodium 100 MG CAPSULE PO ×2 (08:47→20:35)
[2020-05-06 08:48] VITALS: BP 132/79; PULSE 99
[2020-05-06] MEDS: Metoprolol Tartrate 50 MG TABLET 25 MG PO ×2 (08:48→20:35)
[2020-05-06] MEDS: Divalproex Sodium 250 MG TABLET.DR PO (08:49)
[2020-05-06] MEDS: Omeprazole 20 MG CAPSULE.DR PO (08:49)
[2020-05-06] MEDS: Finasteride 5 MG TABLET PO (08:49)
[2020-05-06] MEDS: Cholecalciferol (Vitamin D3) 25 MCG TABLET PO (08:49)
[2020-05-06] MEDS: Lithium Carbonate 300 MG CAPSULE PO ×3 (08:49→20:34)
--- NOTE | 2020-05-06 16:53 | P.PNPSI_ITS ---
Subjective Subjective Date of Service: 05/06/20 Reason For Visit: Bipolar disorder Subjective Notes: Conditional Voluntary (hcp activated) Interim History: No improvement with [place] re-introduction, titration and level of 0.59. Discussed with team, primary RN and pt is appearing increasingly symptomatic since [place] initiation. Will taper and discontinue. Message left for Dr. Ames, pt's out pt psychiatrist to discuss other options. Valproate level 82 at 1250mg, ammonia 40 (hx of high ammonia with Valproate). ?Vraylar trial. Continues labile, psychotic, disoriented, unmodulated. Medication Compliance: Yes Side effects from medications: No (?worsening sx from [place]) Attending Groups: Yes Review of Systems Reports behavioral changes and Reports confusion Psychiatric: Reports behavioral changes, Reports confusion, Reports difficulty concentrating, Reports auditory hallucinations, Reports irritability, Reports mood swings, Reports paranoia, Reports visual hallucinations and Reports hallucinations Mental Status Exam Mental Status Exam Patient Appearance: Disheveled Patient Orientation: Person Level of Consciousness: Awake and Restless Patient Behavior: Talkative, Restless, Wandering, Anxious, Distractible, Good Eye Contact, Impulsive, Pacing and Poor Eye Contact Mood Description: Suspicious, Withdrawn, Cheerful, Anxious, Labile, Angry, Elated, Apprehensive and Expansive Affect Description: Labile Patient Cognition Impaired: Yes Ability to Follow Directions: Fair Speech Pattern: Perseverating, Impoverished, Difficulty Finding Words, Spontaneous Speech, Rambling, Mumbled, Cofabulation, Rapid, Excessive, Animated, Loud and Pressured Memory Description: Remote Impaired, Immediate Impaired, Episodic Impaired and Recent Impaired Hallucinations: Auditory and Visual Delusions: Present Perceptual Disturbances: Hallucinations and Illusions Thought Process: Disoriented, Racing, Illogical, Distracted and Word Salad Thought Content: positive for Flight of Ideas, positive for Disoriented, positive for Racing, positive for Loose Associations, positive for Tangential and positive for Disorganized Depressive Symptoms: Diff. Making Decisions and Difficulty Concentrating Abnormal Motor Activity Signs and Symptoms: Agitation, Hyperactivity and Restlessness Judgement: Poor Diagnostics Vital Signs (24Hr): Vital Signs - 24 hr 05/05/20 17:08 05/05/20 17:18 05/05/20 18:00 Temperature 99.5 F 99.6 F 99.8 F Pulse Rate 104 H 100 Respiratory Rate 18 Blood Pressure 118/87 118/87 Pulse Oximetry 93 05/05/20 20:54 05/06/20 06:35 05/06/20 08:48 Temperature 98.5 F Pulse Rate 98 91 99 Respiratory Rate 16 Blood Pressure 147/82 H 153/85 H 132/79 Pulse Oximetry 96 Body Mass Index 0.0 Labs Results: 04/30/20 13:36 05/04/20 07:43 Labs: Laboratory Results - last 48 hr 05/05/20 05/06/20 05/06/20 18:08 08:10 08:10 Ammonia 40 Valproic Acid 82.0 Coronavirus (PCR) NEGATIVE Influenza Type A (PCR) NEGATIVE Influenza Type B (PCR) NEGATIVE RSV RNA Qual (PCR) NEGATIVE Imaging Radiology Impressions: ITS Impressions Chest X-Ray 04/17/20 07:27 IMPRESSION: No acute cardiopulmonary findings Head CT 04/17/20 07:27 IMPRESSION: No acute intracranial findings. Sinus disease as described. Modified Barium Swallow 05/04/20 15:36 IMPRESSION: No significant abnormality identified on modified barium swallow. Please refer to speech pathology report for details. Chest X-Ray 05/05/20 19:15 IMPRESSION: No evidence for acute disease. Medications Medications Current Medications Generic Name Dose Route Start Last Admin Trade Name Freq PRN Reason Stop Dose Admin Acetaminophen 650 mg 04/18/20 18:48 05/06/20 02:58 Acetaminophen 325 Mg Tablet PO 650 mg Q6H PRN Administration Headache/Pain Mild Scale (1-3) Al Hydroxide/Mg Hydroxide 30 ml 04/18/20 18:48 Magnesium Hydrox/Alum Hydrox 30 Ml Oral.Susp PO Q6H PRN Heartburn/Nausea Divalproex Sodium 1,000 mg 04/17/20 21:00 05/05/20 21:47 Divalproex Sodium Er 500 Mg Tab.Er.24h PO 1,000 mg BEDTIME DEVONTE Administration Divalproex Sodium 250 mg 04/22/20 09:00 05/06/20 08:49 Divalproex Sodium 250 Mg Tablet.Dr PO 250 mg DAILY DEVONTE Administration Docusate Sodium 100 mg 04/29/20 21:00 05/06/20 08:47 Docusate Sodium 100 Mg Capsule PO 100 mg BID DEVONTE Administration Finasteride 5 mg 04/17/20 14:00 05/06/20 08:49 Finasteride 5 Mg Tablet PO 5 mg DAILY DEVONTE Administration [place] Carbonate 300 mg 05/04/20 21:00 05/06/20 16:14 [place] Carbonate 300 Mg Capsule PO 300 mg TID DEVONTE Administration Magnesium Hydroxide 30 ml 04/18/20 18:48 04/29/20 13:52 Milk Of Magnesia 30 Ml Oral.Susp PO 30 ml DAILY PRN Administration Constipation Metoprolol Tartrate 25 mg 04/17/20 14:00 05/06/20 08:48 Metoprolol Tartrate 50 Mg Tablet PO 25 mg BID DEVONTE Administration Protocol Olanzapine 5 mg 04/19/20 07:01 05/06/20 02:57 Olanzapine 5 Mg Tablet PO 5 mg Q4H PRN Administration Psychosis,blake Olanzapine 20 mg 04/21/20 21:00 05/05/20 20:54 Olanzapine 10 Mg Tablet PO 20 mg BEDTIME DEVONTE Administration Omeprazole 20 mg 05/04/20 17:20 05/06/20 08:49 Omeprazole 20 Mg Capsule.Dr PO 20 mg DAILY@0630 DEVONTE Administration Trazodone HCl 100 mg 05/01/20 21:00 05/05/20 20:55 Trazodone Hcl 100 Mg Tablet PO 100 mg BEDTIME DEVONTE Administration Vitamin D 25 mcg 04/22/20 09:00 05/06/20 08:49 Cholecalciferol (Vitamin D3) 25 Mcg Tablet PO 25 mcg DAILY DEVONTE Administration Allergies Allergies Allergy/AdvReac Type Severity Reaction Status Date / Time haloperidol [From HALDOL] Allergy Unknown UNKNOWN Unverified 12/03/19 15:27 Helidac Allergy Unknown seizure Uncoded 07/28/19 00:00 and stiffness Assessment & Plan Assessment & Plan (1) Schizoaffective disorder, bipolar type: Status: Acute Code(s): F25.0 - Schizoaffective disorder, bipolar type Assessment and Plan: [place] taper. Lorazepam 1 mg q 6 hours prn agitation Thorazine 10 mg bid to augment Olanzapine/Valproate Encourage Fluids. (2) Anemia: Status: Acute Code(s): D64.9 - Anemia, unspecified Greater than 50% of the session was spent on counseling and/or coordination of care Reason for contiued inpatient stay Substantial Risk for: med/psych decompensation
[2020-05-06 18:00] VITALS: BP 138/66; PULSE 91; TEMP 37.2
[2020-05-06] MEDS: chlorproMAZINE HCl 10 MG TABLET PO (20:34)
[2020-05-06] MEDS: Divalproex Sodium ER 500 MG TAB.ER.24H 1000 MG PO (20:34)
[2020-05-06] MEDS: traZODone HCL 100 MG TABLET PO (20:34)
[2020-05-06] MEDS: OLANZapine 10 MG TABLET 20 MG PO (20:34)
[2020-05-06 20:35] VITALS: BP 138/66; PULSE 91
[2020-05-07] MEDS: LORazepam 1 MG TABLET PO ×2 (03:03→13:15)
[2020-05-07] MEDS: OLANZapine 5 MG TABLET PO ×3 (03:03→13:15)
[2020-05-07 06:40] VITALS: BP 108/64; PULSE 80; RESP 16; TEMP 36.4; O2SAT 95
[2020-05-07] MEDS: Omeprazole 20 MG CAPSULE.DR PO (08:47)
[2020-05-07] MEDS: chlorproMAZINE HCl 10 MG TABLET PO ×2 (08:47→20:35)
[2020-05-07] MEDS: Divalproex Sodium 250 MG TABLET.DR PO (08:47)
[2020-05-07 08:48] VITALS: BP 108/64; PULSE 80
[2020-05-07] MEDS: Metoprolol Tartrate 50 MG TABLET 25 MG PO ×2 (08:48→20:36)
[2020-05-07] MEDS: Docusate Sodium 100 MG CAPSULE PO ×2 (08:48→20:35)
[2020-05-07] MEDS: Cholecalciferol (Vitamin D3) 25 MCG TABLET PO (08:49)
[2020-05-07] MEDS: Finasteride 5 MG TABLET PO (08:49)
--- NOTE | 2020-05-07 16:01 | HO.PSYCHPN ---
Subjective Subjective Date of Service: 05/07/20 Reason For Visit: Bipolar disorder Subjective Notes: Conditional Voluntary Interim History: Yomi was somewhat confused and needing much re-direction from staff. He was not able to have a meaningful interaction Medication Compliance: Yes Side effects from medications: No Attending Groups: No Review of Systems Acute medical concerns: No Medical Review of Systems: unchanged Review of Systems Review of Systems Yes Unobtainable due to mental status (Unable to obtain meaningful history.) Cardiovascular: Reports other (hypotensive, metoprolol held this a.m.) Reports behavioral changes and Reports confusion Psychiatric: Reports abnormal sleep pattern, Reports behavioral changes, Reports change in appetite, Reports confusion, Reports difficulty concentrating, Reports auditory hallucinations, Reports irritability, Reports anhedonia, Reports mood swings, Reports paranoia, Reports visual hallucinations, Reports hallucinations, Reports tactile hallucinations, Reports homicidal ideation (denies) and Reports suicidal ideation ( no ) Hematologic/Lymphatic: Reports other (anemia-messages left with PCP to discuss current values) Mental Status Exam Mental Status Exam Patient Appearance: Disheveled Patient Orientation: Person Level of Consciousness: Awake and Restless Patient Behavior: Talkative, Restless, Wandering, Anxious, Distractible, Good Eye Contact, Impulsive, Pacing and Poor Eye Contact Mood Description: Suspicious, Withdrawn, Cheerful, Anxious, Labile, Angry, Elated, Apprehensive and Expansive Affect Description: Labile Patient Cognition Impaired: Yes Ability to Follow Directions: Fair Speech Pattern: Perseverating, Impoverished, Difficulty Finding Words, Spontaneous Speech, Rambling, Mumbled, Cofabulation, Rapid, Excessive, Animated, Loud and Pressured Memory Description: Remote Impaired, Immediate Impaired, Episodic Impaired and Recent Impaired Delusions: Paranoid Ideation Thought Process: Illogical, Distracted and Rumination Thought Content: negative for Suicidal Ideation and negative for Homicidal Ideation Judgement: Poor Diagnostics Vital Signs (24Hr): Vital Signs - 24 hr 05/06/20 18:00 05/06/20 20:35 05/07/20 06:40 Temperature 98.9 F 97.6 F Pulse Rate 91 91 80 Respiratory Rate 16 Blood Pressure 138/66 138/66 108/64 Pulse Oximetry 95 05/07/20 08:48 Temperature Pulse Rate 80 Respiratory Rate Blood Pressure 108/64 Pulse Oximetry Body Mass Index 0.0 Labs Results: 04/30/20 13:36 05/04/20 07:43 Labs: Laboratory Results - last 48 hr 05/05/20 05/06/20 05/06/20 18:08 08:10 08:10 Ammonia 40 Valproic Acid 82.0 Coronavirus (PCR) NEGATIVE Influenza Type A (PCR) NEGATIVE Influenza Type B (PCR) NEGATIVE RSV RNA Qual (PCR) NEGATIVE Imaging Radiology Impressions: ITS Impressions Chest X-Ray 04/17/20 07:27 IMPRESSION: No acute cardiopulmonary findings Head CT 04/17/20 07:27 IMPRESSION: No acute intracranial findings. Sinus disease as described. Modified Barium Swallow 05/04/20 15:36 IMPRESSION: No significant abnormality identified on modified barium swallow. Please refer to speech pathology report for details. Chest X-Ray 05/05/20 19:15 IMPRESSION: No evidence for acute disease. Medications Medications Current Medications Generic Name Dose Route Start Last Admin Trade Name Freq PRN Reason Stop Dose Admin Acetaminophen 650 mg 04/18/20 18:48 05/06/20 02:58 Acetaminophen 325 Mg Tablet PO 650 mg Q6H PRN Administration Headache/Pain Mild Scale (1-3) Al Hydroxide/Mg Hydroxide 30 ml 04/18/20 18:48 Magnesium Hydrox/Alum Hydrox 30 Ml Oral.Susp PO Q6H PRN Heartburn/Nausea Chlorpromazine HCl 10 mg 05/06/20 21:00 05/07/20 08:47 Chlorpromazine Hcl 10 Mg Tablet PO 10 mg BID DEVONTE Administration Divalproex Sodium 1,000 mg 04/17/20 21:00 05/06/20 20:34 Divalproex Sodium Er 500 Mg Tab.Er.24h PO 1,000 mg BEDTIME DEVONTE Administration Divalproex Sodium 250 mg 04/22/20 09:00 05/07/20 08:47 Divalproex Sodium 250 Mg Tablet.Dr PO 250 mg DAILY DEVONTE Administration Docusate Sodium 100 mg 04/29/20 21:00 05/07/20 08:48 Docusate Sodium 100 Mg Capsule PO 100 mg BID DEVONTE Administration Finasteride 5 mg 04/17/20 14:00 05/07/20 08:49 Finasteride 5 Mg Tablet PO 5 mg DAILY DEVONTE Administration [place] Carbonate 300 mg 05/06/20 21:00 05/06/20 20:34 [place] Carbonate 300 Mg Capsule PO 300 mg BEDTIME DEVONTE Administration Lorazepam 1 mg 05/06/20 17:15 05/07/20 13:15 Lorazepam 1 Mg Tablet PO 1 mg Q6H PRN Administration agitation Magnesium Hydroxide 30 ml 04/18/20 18:48 04/29/20 13:52 Milk Of Magnesia 30 Ml Oral.Susp PO 30 ml DAILY PRN Administration Constipation Metoprolol Tartrate 25 mg 04/17/20 14:00 05/07/20 08:48 Metoprolol Tartrate 50 Mg Tablet PO 25 mg BID DEVONTE Administration Protocol Olanzapine 5 mg 04/19/20 07:01 05/07/20 13:15 Olanzapine 5 Mg Tablet PO 5 mg Q4H PRN Administration Psychosis,blake Olanzapine 20 mg 04/21/20 21:00 05/06/20 20:34 Olanzapine 10 Mg Tablet PO 20 mg BEDTIME DEVONTE Administration Omeprazole 20 mg 05/04/20 17:20 05/07/20 08:47 Omeprazole 20 Mg Capsule. PO 20 mg DAILY@0630 DEVONTE Administration Trazodone HCl 100 mg 05/01/20 21:00 05/06/20 20:34 Trazodone Hcl 100 Mg Tablet PO 100 mg BEDTIME DEVONTE Administration Vitamin D 25 mcg 04/22/20 09:00 05/07/20 08:49 Cholecalciferol (Vitamin D3) 25 Mcg Tablet PO 25 mcg DAILY DEVONTE Administration Allergies Allergies Allergy/AdvReac Type Severity Reaction Status Date / Time haloperidol [From HALDOL] Allergy Unknown UNKNOWN Unverified 12/03/19 15:27 Helidac Allergy Unknown seizure Uncoded 07/28/19 00:00 and stiffness Assessment & Plan Assessment & Plan (1) Schizoaffective disorder, bipolar type: Status: Acute Code(s): F25.0 - Schizoaffective disorder, bipolar type Assessment and Plan: [place] taper. Lorazepam 1 mg q 6 hours prn agitation Thorazine 10 mg bid to augment Olanzapine/Valproate Encourage Fluids. No change to above plan (2) Anemia: Status: Acute Code(s): D64.9 - Anemia, unspecified Greater than 50% of the session was spent on counseling and/or coordination of care Patient educated on: diagnosis and medication risk/benefits Informed Consent: does not understand Reason for contiued inpatient stay Substantial Risk for: inability to function
[2020-05-07 18:00] VITALS: BP 118/69; PULSE 77; TEMP 36.9
[2020-05-07 20:36] VITALS: BP 122/63; PULSE 86
[2020-05-07] MEDS: traZODone HCL 100 MG TABLET PO (20:36)
[2020-05-07] MEDS: Divalproex Sodium ER 500 MG TAB.ER.24H 1000 MG PO (20:36)
[2020-05-07] MEDS: OLANZapine 10 MG TABLET 20 MG PO (20:36)
[2020-05-07] MEDS: Lithium Carbonate 300 MG CAPSULE PO (20:36)
[2020-05-08] MEDS: LORazepam 1 MG TABLET PO ×2 (00:14→16:17)
[2020-05-08] MEDS: OLANZapine 5 MG TABLET PO ×3 (00:14→16:17)
[2020-05-08 04:55] VITALS: BP 107/61; PULSE 66; RESP 16; TEMP 36.6; O2SAT 96
[2020-05-08] MEDS: Omeprazole 20 MG CAPSULE.DR PO (08:31)
[2020-05-08 08:32] VITALS: BP 107/61; PULSE 66
[2020-05-08] MEDS: chlorproMAZINE HCl 10 MG TABLET PO ×2 (08:32→20:56)
[2020-05-08] MEDS: Docusate Sodium 100 MG CAPSULE PO ×2 (08:32→20:56)
[2020-05-08] MEDS: Divalproex Sodium 250 MG TABLET.DR PO (08:32)
[2020-05-08] MEDS: Finasteride 5 MG TABLET PO (08:32)
[2020-05-08] MEDS: Metoprolol Tartrate 50 MG TABLET 25 MG PO ×2 (08:32→20:55)
[2020-05-08] MEDS: Cholecalciferol (Vitamin D3) 25 MCG TABLET PO (08:32)
--- NOTE | 2020-05-08 17:00 | HO.PSYCHPN ---
Subjective Subjective Date of Service: 05/08/20 Reason For Visit: Bipolar disorder Subjective Notes: Conditional Voluntary Interim History: Yomi was somewhat confused and needing much re-direction from staff. He was not able to have a meaningful interaction There has been no behavioral dyscontrol Medication Compliance: Yes Side effects from medications: No Attending Groups: No Review of Systems Acute medical concerns: No Medical Review of Systems: unchanged Review of Systems Review of Systems Yes Unobtainable due to mental status (Unable to obtain meaningful history.) Cardiovascular: Reports other (hypotensive, metoprolol held this a.m.) Reports behavioral changes and Reports confusion Psychiatric: Reports abnormal sleep pattern, Reports behavioral changes, Reports change in appetite, Reports confusion, Reports difficulty concentrating, Reports auditory hallucinations, Reports irritability, Reports anhedonia, Reports mood swings, Reports paranoia, Reports visual hallucinations, Reports hallucinations, Reports tactile hallucinations, Reports homicidal ideation (denies) and Reports suicidal ideation ( no ) Hematologic/Lymphatic: Reports other (anemia-messages left with PCP to discuss current values) Mental Status Exam Mental Status Exam Patient Appearance: Disheveled Patient Orientation: Person Level of Consciousness: Awake and Restless Patient Behavior: Talkative, Restless, Wandering, Anxious, Distractible, Good Eye Contact, Impulsive, Pacing and Poor Eye Contact Mood Description: Suspicious, Withdrawn, Cheerful, Anxious, Labile, Angry, Elated, Apprehensive and Expansive Affect Description: Labile Patient Cognition Impaired: Yes Ability to Follow Directions: Fair Speech Pattern: Perseverating, Impoverished, Difficulty Finding Words, Spontaneous Speech, Rambling, Mumbled, Cofabulation, Rapid, Excessive, Animated, Loud and Pressured Memory Description: Remote Impaired, Immediate Impaired, Episodic Impaired and Recent Impaired Thought Content: negative for Suicidal Ideation and negative for Homicidal Ideation Judgement: Poor Diagnostics Vital Signs (24Hr): Vital Signs - 24 hr 05/07/20 18:00 05/07/20 20:36 05/08/20 04:55 Temperature 98.5 F 97.8 F Pulse Rate 77 86 66 Respiratory Rate 16 Blood Pressure 118/69 122/63 107/61 Pulse Oximetry 96 05/08/20 08:32 Temperature Pulse Rate 66 Respiratory Rate Blood Pressure 107/61 Pulse Oximetry Body Mass Index 0.0 Labs Results: 04/30/20 13:36 05/04/20 07:43 Imaging Radiology Impressions: ITS Impressions Chest X-Ray 04/17/20 07:27 IMPRESSION: No acute cardiopulmonary findings Head CT 04/17/20 07:27 IMPRESSION: No acute intracranial findings. Sinus disease as described. Modified Barium Swallow 05/04/20 15:36 IMPRESSION: No significant abnormality identified on modified barium swallow. Please refer to speech pathology report for details. Chest X-Ray 05/05/20 19:15 IMPRESSION: No evidence for acute disease. Medications Medications Current Medications Generic Name Dose Route Start Last Admin Trade Name Freq PRN Reason Stop Dose Admin Acetaminophen 650 mg 04/18/20 18:48 05/06/20 02:58 Acetaminophen 325 Mg Tablet PO 650 mg Q6H PRN Administration Headache/Pain Mild Scale (1-3) Al Hydroxide/Mg Hydroxide 30 ml 04/18/20 18:48 Magnesium Hydrox/Alum Hydrox 30 Ml Oral.Susp PO Q6H PRN Heartburn/Nausea Chlorpromazine HCl 10 mg 05/06/20 21:00 05/08/20 08:32 Chlorpromazine Hcl 10 Mg Tablet PO 10 mg BID DEVONTE Administration Divalproex Sodium 1,000 mg 04/17/20 21:00 05/07/20 20:36 Divalproex Sodium Er 500 Mg Tab.Er.24h PO 1,000 mg BEDTIME DEVONTE Administration Divalproex Sodium 250 mg 04/22/20 09:00 05/08/20 08:32 Divalproex Sodium 250 Mg Tablet.Dr PO 250 mg DAILY DEVONTE Administration Docusate Sodium 100 mg 04/29/20 21:00 05/08/20 08:32 Docusate Sodium 100 Mg Capsule PO 100 mg BID DEVONTE Administration Finasteride 5 mg 04/17/20 14:00 05/08/20 08:32 Finasteride 5 Mg Tablet PO 5 mg DAILY DEVONTE Administration [place] Carbonate 300 mg 05/06/20 21:00 05/07/20 20:36 [place] Carbonate 300 Mg Capsule PO 300 mg BEDTIME DEVONTE Administration Lorazepam 1 mg 05/06/20 17:15 05/08/20 16:17 Lorazepam 1 Mg Tablet PO 1 mg Q6H PRN Administration agitation Magnesium Hydroxide 30 ml 04/18/20 18:48 04/29/20 13:52 Milk Of Magnesia 30 Ml Oral.Susp PO 30 ml DAILY PRN Administration Constipation Metoprolol Tartrate 25 mg 04/17/20 14:00 05/08/20 08:32 Metoprolol Tartrate 50 Mg Tablet PO 25 mg BID DEVONTE Administration Protocol Olanzapine 5 mg 04/19/20 07:01 05/08/20 16:17 Olanzapine 5 Mg Tablet PO 5 mg Q4H PRN Administration Psychosis,blake Olanzapine 20 mg 04/21/20 21:00 05/07/20 20:36 Olanzapine 10 Mg Tablet PO 20 mg BEDTIME DEVONTE Administration Omeprazole 20 mg 05/04/20 17:20 05/08/20 08:31 Omeprazole 20 Mg Capsule. PO 20 mg DAILY@0630 DEVONTE Administration Trazodone HCl 100 mg 05/01/20 21:00 05/07/20 20:36 Trazodone Hcl 100 Mg Tablet PO 100 mg BEDTIME DEVONTE Administration Vitamin D 25 mcg 04/22/20 09:00 05/08/20 08:32 Cholecalciferol (Vitamin D3) 25 Mcg Tablet PO 25 mcg DAILY DEVONTE Administration Allergies Allergies Allergy/AdvReac Type Severity Reaction Status Date / Time haloperidol [From HALDOL] Allergy Unknown UNKNOWN Unverified 12/03/19 15:27 Helidac Allergy Unknown seizure Uncoded 07/28/19 00:00 and stiffness Assessment & Plan Assessment & Plan (1) Schizoaffective disorder, bipolar type: Status: Acute Code(s): F25.0 - Schizoaffective disorder, bipolar type Assessment and Plan: [place] taper. Lorazepam 1 mg q 6 hours prn agitation Thorazine 10 mg bid to augment Olanzapine/Valproate Encourage Fluids. No change to above plan (2) Anemia: Status: Acute Code(s): D64.9 - Anemia, unspecified Greater than 50% of the session was spent on counseling and/or coordination of care Patient educated on: diagnosis and medication risk/benefits Informed Consent: does not understand Reason for contiued inpatient stay Substantial Risk for: inability to function
[2020-05-08 19:30] VITALS: BP 121/64; PULSE 83; TEMP 35.8
[2020-05-08 20:55] VITALS: BP 121/64; PULSE 83
[2020-05-08] MEDS: traZODone HCL 100 MG TABLET PO (20:56)
[2020-05-08] MEDS: OLANZapine 10 MG TABLET 20 MG PO (20:56)
[2020-05-08] MEDS: Lithium Carbonate 300 MG CAPSULE PO (20:56)
[2020-05-08] MEDS: Divalproex Sodium ER 500 MG TAB.ER.24H 1000 MG PO (20:57)
--- NOTE | 2020-05-09 | ECG_ITS ---
Test Reason : DUAL ANTIPSYCHOTIC Blood Pressure : / mmHG Vent. 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
[2020-05-09 06:00] VITALS: BP 140/95; PULSE 94; RESP 16; TEMP 36.6; O2SAT 95
[2020-05-09] MEDS: Cholecalciferol (Vitamin D3) 25 MCG TABLET PO (09:16)
[2020-05-09] MEDS: Docusate Sodium 100 MG CAPSULE PO ×2 (09:16→20:54)
[2020-05-09] MEDS: chlorproMAZINE HCl 10 MG TABLET PO (09:16)
[2020-05-09] MEDS: Divalproex Sodium 250 MG TABLET.DR PO (09:16)
[2020-05-09] MEDS: Omeprazole 20 MG CAPSULE.DR PO (09:16)
[2020-05-09] MEDS: Finasteride 5 MG TABLET PO (09:17)
[2020-05-09 09:29] VITALS: BP 140/95; PULSE 94
[2020-05-09] MEDS: Metoprolol Tartrate 50 MG TABLET 25 MG PO ×2 (09:29→20:53)
--- NOTE | 2020-05-09 18:24 | P.PNPSI_ITS ---
Subjective Subjective Date of Service: 05/09/20 Reason For Visit: Bipolar disorder Subjective Notes: Conditional Voluntary (HCP activated) Interim History: Appears calmer today, continues delusional, disorganized. Team reports loud screaming on 05/07, quieter on 05/08. [place] discontinued- ineffective. Tolerating very low dose Thorazine. Medication Compliance: Yes Side effects from medications: No Attending Groups: No Review of Systems Review of Systems Yes Unobtainable due to mental status Reports behavioral changes and Reports confusion Psychiatric: Reports abnormal sleep pattern (per team sleep improving), Reports behavioral changes, Reports confusion, Reports difficulty concentrating, Reports auditory hallucinations, Reports mood swings, Reports paranoia and Reports visual hallucinations Mental Status Exam Mental Status Exam Patient Appearance: Disheveled Patient Orientation: Person Level of Consciousness: Awake and Disoriented Patient Behavior: Passive, Restless, Wandering and Confused Mood Description: Labile Affect Description: Labile Patient Cognition Impaired: Yes Ability to Follow Directions: Fair Speech Pattern: Perseverating, Garbled, Spontaneous Speech, Rambling, Mumbled, Cofabulation, Rapid and Poor Articulation Memory Description: Remote Impaired, Envelope Addresser Impaired, Episodic Impaired and Recent Impaired Hallucinations: Auditory and Visual Delusions: Present Thought Process: Disoriented, Incoherent, Racing, Illogical, Distracted, Word Salad and Confusion Thought Content: positive for Flight of Ideas, positive for Disoriented, positive for Racing, positive for Loose Associations, positive for Tangential and positive for Disorganized Abnormal Motor Activity Signs and Symptoms: Agitation, Hyperactivity and Restlessness Judgement: Poor Diagnostics Vital Signs (24Hr): Vital Signs - 24 hr 05/08/20 19:30 05/08/20 20:55 05/09/20 06:00 Temperature 96.5 F L 97.8 F Pulse Rate 83 83 94 Respiratory Rate 16 Blood Pressure 121/64 121/64 140/95 H Pulse Oximetry 95 05/09/20 09:29 Temperature Pulse Rate 94 Respiratory Rate Blood Pressure 140/95 H Pulse Oximetry Body Mass Index 0.0 Labs Results: 04/30/20 13:36 05/04/20 07:43 Imaging Radiology Impressions: ITS Impressions Chest X-Ray 04/17/20 07:27 IMPRESSION: No acute cardiopulmonary findings Head CT 04/17/20 07:27 IMPRESSION: No acute intracranial findings. Sinus disease as described. Modified Barium Swallow 05/04/20 15:36 IMPRESSION: No significant abnormality identified on modified barium swallow. Please refer to speech pathology report for details. Chest X-Ray 05/05/20 19:15 IMPRESSION: No evidence for acute disease. Medications Medications Current Medications Generic Name Dose Route Start Last Admin Trade Name Freq PRN Reason Stop Dose Admin Acetaminophen 650 mg 04/18/20 18:48 05/06/20 02:58 Acetaminophen 325 Mg Tablet PO 650 mg Q6H PRN Administration Headache/Pain Mild Scale (1-3) Al Hydroxide/Mg Hydroxide 30 ml 04/18/20 18:48 Magnesium Hydrox/Alum Hydrox 30 Ml Oral.Susp PO Q6H PRN Heartburn/Nausea Chlorpromazine HCl 25 mg 05/09/20 17:00 Chlorpromazine Hcl 25 Mg Tablet PO QID DEVONTE Divalproex Sodium 1,000 mg 04/17/20 21:00 05/08/20 20:57 Divalproex Sodium Er 500 Mg Tab.Er.24h PO 1,000 mg BEDTIME DEVONTE Administration Divalproex Sodium 250 mg 04/22/20 09:00 05/09/20 09:16 Divalproex Sodium 250 Mg Tablet.Dr PO 250 mg DAILY DEVONTE Administration Docusate Sodium 100 mg 04/29/20 21:00 05/09/20 09:16 Docusate Sodium 100 Mg Capsule PO 100 mg BID DEVONTE Administration Finasteride 5 mg 04/17/20 14:00 05/09/20 09:17 Finasteride 5 Mg Tablet PO 5 mg DAILY DEVONTE Administration Lorazepam 1 mg 05/06/20 17:15 05/08/20 16:17 Lorazepam 1 Mg Tablet PO 1 mg Q6H PRN Administration agitation Magnesium Hydroxide 30 ml 04/18/20 18:48 04/29/20 13:52 Milk Of Magnesia 30 Ml Oral.Susp PO 30 ml DAILY PRN Administration Constipation Metoprolol Tartrate 25 mg 04/17/20 14:00 05/09/20 09:29 Metoprolol Tartrate 50 Mg Tablet PO 25 mg BID DEVONTE Administration Protocol Olanzapine 5 mg 04/19/20 07:01 05/08/20 16:17 Olanzapine 5 Mg Tablet PO 5 mg Q4H PRN Administration Psychosis,blake Olanzapine 20 mg 04/21/20 21:00 05/08/20 20:56 Olanzapine 10 Mg Tablet PO 20 mg BEDTIME DEVONTE Administration Omeprazole 20 mg 05/04/20 17:20 05/09/20 09:16 Omeprazole 20 Mg Capsule. PO 20 mg DAILY@0630 DEVONTE Administration Trazodone HCl 100 mg 05/01/20 21:00 05/08/20 20:56 Trazodone Hcl 100 Mg Tablet PO 100 mg BEDTIME DEVONTE Administration Vitamin D 25 mcg 04/22/20 09:00 05/09/20 09:16 Cholecalciferol (Vitamin D3) 25 Mcg Tablet PO 25 mcg DAILY DEVONTE Administration Allergies Allergies Allergy/AdvReac Type Severity Reaction Status Date / Time haloperidol [From HALDOL] Allergy Unknown UNKNOWN Unverified 12/03/19 15:27 Helidac Allergy Unknown seizure Uncoded 07/28/19 00:00 and stiffness Assessment & Plan Assessment & Plan (1) Schizoaffective disorder, bipolar type: Status: Acute Code(s): F25.0 - Schizoaffective disorder, bipolar type Assessment and Plan: Increase Thorazine to 25 mg BID. EKG Greater than 50% of the session was spent on counseling and/or coordination of care Reason for contiued inpatient stay Substantial Risk for: harm to self, harm to others, inability to function and med/psych decompensation
[2020-05-09] MEDS: Milk of Magnesia 30 ML ORAL.SUSP PO ×2 (19:21→19:27)
[2020-05-09 19:35] VITALS: BP 123/72; PULSE 78; TEMP 36.4
[2020-05-09 20:53] VITALS: BP 123/72; PULSE 78
[2020-05-09] MEDS: traZODone HCL 100 MG TABLET PO (20:53)
[2020-05-09] MEDS: Divalproex Sodium ER 500 MG TAB.ER.24H 1000 MG PO (20:53)
[2020-05-09] MEDS: chlorproMAZINE HCl 25 MG TABLET PO (20:54)
[2020-05-09] MEDS: OLANZapine 10 MG TABLET 20 MG PO (20:54)
[2020-05-10 06:45] VITALS: BP 128/71; PULSE 78; RESP 18; TEMP 36.1; O2SAT 95
[2020-05-10] MEDS: Omeprazole 20 MG CAPSULE.DR PO (08:32)
[2020-05-10] MEDS: Finasteride 5 MG TABLET PO (08:33)
[2020-05-10] MEDS: Divalproex Sodium 250 MG TABLET.DR PO (08:33)
[2020-05-10] MEDS: Cholecalciferol (Vitamin D3) 25 MCG TABLET PO (08:33)
[2020-05-10] MEDS: OLANZapine 5 MG TABLET PO ×2 (08:33→12:53)
[2020-05-10] MEDS: chlorproMAZINE HCl 25 MG TABLET PO ×2 (08:33→21:31)
[2020-05-10] MEDS: Docusate Sodium 100 MG CAPSULE PO ×2 (08:33→21:31)
[2020-05-10 08:34] VITALS: BP 128/71; PULSE 78
[2020-05-10] MEDS: Metoprolol Tartrate 50 MG TABLET 25 MG PO ×2 (08:34→21:30)
[2020-05-10] MEDS: LORazepam 1 MG TABLET PO ×2 (09:25→23:06)
--- NOTE | 2020-05-10 17:09 | P.PNPSI_ITS ---
Subjective Subjective Date of Service: 05/10/20 Reason For Visit: Bipolar disorder Subjective Notes: Conditional Voluntary (HCP activated) Interim History: Appears calmer, alert, observant. Some periods of loud talking, with self-dialoguing, misinterpretation of environment, responding to internal stimuli, mostly when alone in his room. Able to sit for brief periods of time in the common area and watch television, observe conversation. Continues with language which is difficult to understand. Thorazine increase implemented day one. Medication Compliance: Yes Side effects from medications: No Attending Groups: No Review of Systems Reports behavioral changes and Reports confusion Psychiatric: Reports behavioral changes, Reports confusion, Reports difficulty concentrating, Reports auditory hallucinations, Reports visual hallucinations, Reports hallucinations, Reports homicidal ideation (no sx) and Reports suicidal ideation (no sx) Mental Status Exam Mental Status Exam Patient Appearance: Disheveled Patient Orientation: Person Level of Consciousness: Awake, Disoriented and Follows Commands Patient Behavior: Talkative, Hyperactive, Cooperative, Wandering, Distractible, Good Eye Contact and Impulsive Mood Description: Labile Affect Description: Labile Patient Cognition Impaired: Yes Ability to Follow Directions: Fair Speech Pattern: Difficulty Finding Words, Garbled, Spontaneous Speech, Rambling, Mumbled, Cofabulation, Rapid, Loud, Pressured and Poor Articulation Memory Description: Remote Impaired, Immediate Impaired, Penitentiary Impaired, Episodic Impaired, Recent Impaired, Working Impaired and Semantic Impaired Hallucinations: Auditory and Visual Delusions: Present Thought Process: Disoriented, Illogical, Distracted, Word Salad and Confusion Thought Content: positive for Flight of Ideas, positive for Disoriented, posit chai for Loose Associations, positive for Tangential and positive for Disorganized Abnormal Motor Activity Signs and Symptoms: Restlessness Judgement: Poor Diagnostics Vital Signs (24Hr): Vital Signs - 24 hr 05/09/20 19:35 05/09/20 20:53 05/10/20 06:45 Temperature 97.6 F 97.0 F Pulse Rate 78 78 78 Respiratory Rate 18 Blood Pressure 123/72 123/72 128/71 Pulse Oximetry 95 05/10/20 08:34 Temperature Pulse Rate 78 Respiratory Rate Blood Pressure 128/71 Pulse Oximetry Body Mass Index 0.0 Labs Results: 04/30/20 13:36 05/04/20 07:43 Imaging Radiology Impressions: ITS Impressions Chest X-Ray 04/17/20 07:27 IMPRESSION: No acute cardiopulmonary findings Head CT 04/17/20 07:27 IMPRESSION: No acute intracranial findings. Sinus disease as described. Modified Barium Swallow 05/04/20 15:36 IMPRESSION: No significant abnormality identified on modified barium swallow. Please refer to speech pathology report for details. Chest X-Ray 05/05/20 19:15 IMPRESSION: No evidence for acute disease. Medications Medications Current Medications Generic Name Dose Route Start Last Admin Trade Name Freq PRN Reason Stop Dose Admin Acetaminophen 650 mg 04/18/20 18:48 05/06/20 02:58 Acetaminophen 325 Mg Tablet PO 650 mg Q6H PRN Administration Headache/Pain Mild Scale (1-3) Al Hydroxide/Mg Hydroxide 30 ml 04/18/20 18:48 Magnesium Hydrox/Alum Hydrox 30 Ml Oral.Susp PO Q6H PRN Heartburn/Nausea Chlorpromazine HCl 25 mg 05/09/20 21:00 05/10/20 08:33 Chlorpromazine Hcl 25 Mg Tablet PO 25 mg BID DEVONTE Administration Divalproex Sodium 1,000 mg 04/17/20 21:00 05/09/20 20:53 Divalproex Sodium Er 500 Mg Tab.Er.24h PO 1,000 mg BEDTIME DEVONTE Administration Divalproex Sodium 250 mg 04/22/20 09:00 05/10/20 08:33 Divalproex Sodium 250 Mg Tablet.Dr PO 250 mg DAILY DEVONTE Administration Docusate Sodium 100 mg 04/29/20 21:00 05/10/20 08:33 Docusate Sodium 100 Mg Capsule PO 100 mg BID DEVONTE Administration Finasteride 5 mg 04/17/20 14:00 05/10/20 08:33 Finasteride 5 Mg Tablet PO 5 mg DAILY DEVONTE Administration Lorazepam 1 mg 05/06/20 17:15 05/10/20 09:25 Lorazepam 1 Mg Tablet PO 1 mg Q6H PRN Administration agitation Magnesium Hydroxide 30 ml 04/18/20 18:48 05/09/20 19:27 Milk Of Magnesia 30 Ml Oral.Susp PO 30 ml DAILY PRN Administration Constipation Metoprolol Tartrate 25 mg 04/17/20 14:00 05/10/20 08:34 Metoprolol Tartrate 50 Mg Tablet PO 25 mg BID DEVONTE Administration Protocol Olanzapine 5 mg 04/19/20 07:01 05/10/20 12:53 Olanzapine 5 Mg Tablet PO 5 mg Q4H PRN Administration Psychosis,blake Olanzapine 20 mg 04/21/20 21:00 05/09/20 20:54 Olanzapine 10 Mg Tablet PO 20 mg BEDTIME DEVONTE Administration Omeprazole 20 mg 05/04/20 17:20 05/10/20 08:32 Omeprazole 20 Mg Capsule. PO 20 mg DAILY@0630 DEVONTE Administration Trazodone HCl 100 mg 05/01/20 21:00 05/09/20 20:53 Trazodone Hcl 100 Mg Tablet PO 100 mg BEDTIME DEVONTE Administration Vitamin D 25 mcg 04/22/20 09:00 05/10/20 08:33 Cholecalciferol (Vitamin D3) 25 Mcg Tablet PO 25 mcg DAILY DEVONTE Administration Allergies Allergies Allergy/AdvReac Type Severity Reaction Status Date / Time haloperidol [From HALDOL] Allergy Unknown UNKNOWN Unverified 12/03/19 15:27 Helidac Allergy Unknown seizure Uncoded 07/28/19 00:00 and stiffness Assessment & Plan Assessment & Plan (1) Schizoaffective disorder, bipolar type: Status: Acute Code(s): F25.0 - Schizoaffective disorder, bipolar type Assessment and Plan: -Continue current plan. Greater than 50% of the session was spent on counseling and/or coordination of care Reason for contiued inpatient stay Substantial Risk for: harm to self, harm to others, inability to function, rapid decompensation and med/psych decompensation
[2020-05-10 17:35] VITALS: BP 129/83; PULSE 79; TEMP 36.5; O2SAT 96
[2020-05-10 21:30] VITALS: BP 116/81; PULSE 95
[2020-05-10] MEDS: Divalproex Sodium ER 500 MG TAB.ER.24H 1000 MG PO (21:30)
[2020-05-10] MEDS: OLANZapine 10 MG TABLET 20 MG PO (21:31)
[2020-05-10] MEDS: traZODone HCL 100 MG TABLET PO (21:32)
[2020-05-11 06:15] VITALS: BP 121/74; PULSE 86; RESP 16; TEMP 36.4; O2SAT 95
[2020-05-11 08:52] VITALS: BP 121/74; PULSE 86
[2020-05-11] MEDS: Docusate Sodium 100 MG CAPSULE PO ×2 (08:52→21:41)
[2020-05-11] MEDS: Cholecalciferol (Vitamin D3) 25 MCG TABLET PO (08:52)
[2020-05-11] MEDS: Metoprolol Tartrate 50 MG TABLET 25 MG PO ×2 (08:52→21:42)
[2020-05-11] MEDS: Divalproex Sodium 250 MG TABLET.DR PO (08:52)
[2020-05-11] MEDS: Omeprazole 20 MG CAPSULE.DR PO (08:52)
[2020-05-11] MEDS: chlorproMAZINE HCl 25 MG TABLET PO ×2 (08:52→21:40)
[2020-05-11] MEDS: Finasteride 5 MG TABLET PO (08:52)
[2020-05-11] MEDS: Acetaminophen 325 MG TABLET 650 MG PO (15:53)
--- NOTE | 2020-05-11 16:26 | HO.PSYCHPN ---
Subjective Subjective Date of Service: 05/11/20 Reason For Visit: Bipolar disorder Subjective Notes: Conditional Voluntary (HCP Activated) Interim History: Some decrease in agitation, quieter for longer periods of time-continues with intermittent yelling. Team reports some clarity in brief instances with understandable speech. Tolerating Chlorpromazine increase. Medication Compliance: Yes Side effects from medications: No Attending Groups: No Review of Systems Reports behavioral changes and Reports confusion Psychiatric: Reports behavioral changes, Reports confusion, Reports difficulty concentrating, Reports auditory hallucinations, Reports irritability, Reports mood swings, Reports paranoia, Reports visual hallucinations and Reports hallucinations Mental Status Exam Mental Status Exam Patient Appearance: Disheveled Patient Orientation: Person Level of Consciousness: Alert Patient Behavior: Appropriate, Talkative, Hyperactive, Cooperative, Restless, Wandering, Distractible, Good Eye Contact and Impulsive Mood Description: Calm, Euphoric, Happy, Relaxed, Cheerful, Labile, Flat and Apprehensive Affect Description: Labile Patient Cognition Impaired: Yes Ability to Follow Directions: Fair Speech Pattern: Impoverished, Garbled, Spontaneous Speech, Rambling, Pressured and Poor Articulation Memory Description: Remote Impaired, Immediate Impaired and Senior [address] Sql Developer Impaired Hallucinations: Auditory and Visual Delusions: Present Thought Process: Disoriented, Illogical, Distracted and Word Salad Thought Content: positive for Flight of Ideas, positive for Disoriented, positive for Racing, positive for Perseveration, positive for Poverty of Content, positive for Preoccupation, positive for Loose Associations, positive for Tangential and positive for Disorganized Abnormal Motor Activity Signs and Symptoms: Hyperactivity and Restlessness Judgement: Poor Diagnostics Vital Signs (24Hr): Vital Signs - 24 hr 05/10/20 17:35 05/10/20 21:30 05/11/20 06:15 Temperature 97.7 F 97.6 F Pulse Rate 79 95 86 Respiratory Rate 16 Blood Pressure 129/83 116/81 121/74 Pulse Oximetry 96 95 05/11/20 08:52 Temperature Pulse Rate 86 Respiratory Rate Blood Pressure 121/74 Pulse Oximetry Body Mass Index 0.0 Labs Results: 04/30/20 13:36 05/04/20 07:43 Imaging Radiology Impressions: ITS Impressions Chest X-Ray 04/17/20 07:27 IMPRESSION: No acute cardiopulmonary findings Head CT 04/17/20 07:27 IMPRESSION: No acute intracranial findings. Sinus disease as described. Modified Barium Swallow 05/04/20 15:36 IMPRESSION: No significant abnormality identified on modified barium swallow. Please refer to speech pathology report for details. Chest X-Ray 05/05/20 19:15 IMPRESSION: No evidence for acute disease. Medications Medications Current Medications Generic Name Dose Route Start Last Admin Trade Name Freq PRN Reason Stop Dose Admin Acetaminophen 650 mg 04/18/20 18:48 05/11/20 15:53 Acetaminophen 325 Mg Tablet PO 650 mg Q6H PRN Administration Headache/Pain Mild Scale (1-3) Al Hydroxide/Mg Hydroxide 30 ml 04/18/20 18:48 Magnesium Hydrox/Alum Hydrox 30 Ml Oral.Susp PO Q6H PRN Heartburn/Nausea Chlorpromazine HCl 25 mg 05/09/20 21:00 05/11/20 08:52 Chlorpromazine Hcl 25 Mg Tablet PO 25 mg BID DEVONTE Administration Divalproex Sodium 1,000 mg 04/17/20 21:00 05/10/20 21:30 Divalproex Sodium Er 500 Mg Tab.Er.24h PO 1,000 mg BEDTIME DEVONTE Administration Divalproex Sodium 250 mg 04/22/20 09:00 05/11/20 08:52 Divalproex Sodium 250 Mg Tablet.Dr PO 250 mg DAILY DEVONTE Administration Docusate Sodium 100 mg 04/29/20 21:00 05/11/20 08:52 Docusate Sodium 100 Mg Capsule PO 100 mg BID DEVONTE Administration Finasteride 5 mg 04/17/20 14:00 05/11/20 08:52 Finasteride 5 Mg Tablet PO 5 mg DAILY DEVONTE Administration Lorazepam 1 mg 05/06/20 17:15 05/10/20 23:06 Lorazepam 1 Mg Tablet PO 1 mg Q6H PRN Administration agitation Magnesium Hydroxide 30 ml 04/18/20 18:48 05/09/20 19:27 Milk Of Magnesia 30 Ml Oral.Susp PO 30 ml DAILY PRN Administration Constipation Metoprolol Tartrate 25 mg 04/17/20 14:00 05/11/20 08:52 Metoprolol Tartrate 50 Mg Tablet PO 25 mg BID DEVONTE Administration Protocol Olanzapine 5 mg 04/19/20 07:01 05/10/20 12:53 Olanzapine 5 Mg Tablet PO 5 mg Q4H PRN Administration Psychosis,blake Olanzapine 20 mg 04/21/20 21:00 05/10/20 21:31 Olanzapine 10 Mg Tablet PO 20 mg BEDTIME DEVONTE Administration Omeprazole 20 mg 05/04/20 17:20 05/11/20 08:52 Omeprazole 20 Mg Capsule. PO 20 mg DAILY@0630 DEVONTE Administration Trazodone HCl 100 mg 05/01/20 21:00 05/10/20 21:32 Trazodone Hcl 100 Mg Tablet PO 100 mg BEDTIME DEVONTE Administration Vitamin D 25 mcg 04/22/20 09:00 05/11/20 08:52 Cholecalciferol (Vitamin D3) 25 Mcg Tablet PO 25 mcg DAILY DEVONTE Administration Allergies Allergies Allergy/AdvReac Type Severity Reaction Status Date / Time haloperidol [From HALDOL] Allergy Unknown UNKNOWN Unverified 12/03/19 15:27 Helidac Allergy Unknown seizure Uncoded 07/28/19 00:00 and stiffness Assessment & Plan Assessment & Plan (1) Schizoaffective disorder, bipolar type: Status: Acute Code(s): F25.0 - Schizoaffective disorder, bipolar type Greater than 50% of the session was spent on counseling and/or coordination of care Informed Consent: does not understand Reason for contiued inpatient stay Substantial Risk for: harm to self, inability to function and med/psych decompensation
[2020-05-11 16:58] VITALS: BP 115/68; PULSE 77; TEMP 36.5; O2SAT 98
[2020-05-11] MEDS: OLANZapine 10 MG TABLET 20 MG PO (21:40)
[2020-05-11] MEDS: Divalproex Sodium ER 500 MG TAB.ER.24H 1000 MG PO (21:41)
[2020-05-11] MEDS: traZODone HCL 100 MG TABLET PO (21:41)
[2020-05-11 21:42] VITALS: BP 138/75; PULSE 108
[2020-05-12] MEDS: OLANZapine 5 MG TABLET PO ×3 (01:11→16:50)
[2020-05-12] MEDS: Omeprazole 20 MG CAPSULE.DR PO (08:44)
[2020-05-12] MEDS: Divalproex Sodium 250 MG TABLET.DR PO (08:44)
[2020-05-12] MEDS: chlorproMAZINE HCl 25 MG TABLET PO ×2 (08:44→20:17)
[2020-05-12] MEDS: Finasteride 5 MG TABLET PO (08:44)
[2020-05-12] MEDS: Cholecalciferol (Vitamin D3) 25 MCG TABLET PO (08:44)
[2020-05-12] MEDS: Docusate Sodium 100 MG CAPSULE PO ×2 (08:44→20:16)
--- NOTE | 2020-05-12 17:29 | P.PNPSI_ITS ---
Subjective Subjective Date of Service: 05/12/20 Reason For Visit: Bipolar disorder Subjective Notes: Conditional Voluntary (HCP activated) Interim History: active, playful, labile, responding to internal stimuli but with clearer moments and easier to understand with some of his dialogue understandable. Message left for Dr. Ames [phone] and Sven Holbrook (program RN) [phone] to discuss re-trial of Clozaril as suggested by Dr. Mckay in team meeting. Medication Compliance: Yes Side effects from medications: No Attending Groups: No Review of Systems Reports behavioral changes and Reports confusion Psychiatric: Reports behavioral changes, Reports confusion, Reports difficulty concentrating, Reports auditory hallucinations, Reports mood swings, Reports visual hallucinations and Reports hallucinations Mental Status Exam Mental Status Exam Patient Appearance: Disheveled Patient Orientation: Person Level of Consciousness: Awake and Alert Patient Behavior: Hyperactive, Cooperative, Restless, Wandering, Distractible, Confused, Good Eye Contact and Impulsive Mood Description: Labile Affect Description: Labile Patient Cognition Impaired: Yes Ability to Follow Directions: Fair Speech Pattern: Spontaneous Speech, Cofabulation, Rapid, Loud, Pressured and Excited Memory Description: Remote Impaired, Episodic Impaired and Recent Impaired Hallucinations: Auditory and Visual Delusions: Present Thought Process: Disoriented, Racing, Distracted and Confusion Thought Content: positive for Flight of Ideas, positive for Racing, positive for Loose Associations and positive for Tangential Abnormal Motor Activity Signs and Symptoms: Agitation and Hyperactivity Judgement: Poor Diagnostics Vital Signs (24Hr): Vital Signs - 24 hr 05/11/20 21:42 Pulse Rate 108 H Blood Pressure 138/75 Body Mass Index 0.0 Labs Results: 04/30/20 13:36 05/04/20 07:43 Imaging Radiology Impressions: ITS Impressions Chest X-Ray 04/17/20 07:27 IMPRESSION: No acute cardiopulmonary findings Head CT 04/17/20 07:27 IMPRESSION: No acute intracranial findings. Sinus disease as described. Modified Barium Swallow 05/04/20 15:36 IMPRESSION: No significant abnormality identified on modified barium swallow. Please refer to speech pathology report for details. Chest X-Ray 05/05/20 19:15 IMPRESSION: No evidence for acute disease. Medications Medications Current Medications Generic Name Dose Route Start Last Admin Trade Name Freq PRN Reason Stop Dose Admin Acetaminophen 650 mg 04/18/20 18:48 05/11/20 15:53 Acetaminophen 325 Mg Tablet PO 650 mg Q6H PRN Administration Headache/Pain Mild Scale (1-3) Al Hydroxide/Mg Hydroxide 30 ml 04/18/20 18:48 Magnesium Hydrox/Alum Hydrox 30 Ml Oral.Susp PO Q6H PRN Heartburn/Nausea Chlorpromazine HCl 25 mg 05/09/20 21:00 05/12/20 08:44 Chlorpromazine Hcl 25 Mg Tablet PO 25 mg BID DEVONTE Administration Divalproex Sodium 1,000 mg 04/17/20 21:00 05/11/20 21:41 Divalproex Sodium Er 500 Mg Tab.Er.24h PO 1,000 mg BEDTIME DEVONTE Administration Divalproex Sodium 250 mg 04/22/20 09:00 05/12/20 08:44 Divalproex Sodium 250 Mg Tablet. PO 250 mg DAILY DEVONTE Administration Docusate Sodium 100 mg 04/29/20 21:00 05/12/20 08:44 Docusate Sodium 100 Mg Capsule PO 100 mg BID DEVONTE Administration Finasteride 5 mg 04/17/20 14:00 05/12/20 08:44 Finasteride 5 Mg Tablet PO 5 mg DAILY DEVONTE Administration Lorazepam 1 mg 05/12/20 16:51 Lorazepam 1 Mg Tablet PO Q4H PRN anxiety, agitation Magnesium Hydroxide 30 ml 04/18/20 18:48 05/09/20 19:27 Milk Of Magnesia 30 Ml Oral.Susp PO 30 ml DAILY PRN Administration Constipation Metoprolol Tartrate 25 mg 04/17/20 14:00 05/12/20 08:51 Metoprolol Tartrate 50 Mg Tablet PO Not Given BID [facility] Protocol Olanzapine 5 mg 04/19/20 07:01 05/12/20 16:50 Olanzapine 5 Mg Tablet PO 5 mg Q4H PRN Administration Psychosis,blake Olanzapine 20 mg 04/21/20 21:00 05/11/20 21:40 Olanzapine 10 Mg Tablet PO 20 mg BEDTIME DEVONTE Administration Omeprazole 20 mg 05/04/20 17:20 05/12/20 08:44 Omeprazole 20 Mg Capsule. PO 20 mg DAILY@0630 DEVONTE Administration Trazodone HCl 100 mg 05/01/20 21:00 05/11/20 21:41 Trazodone Hcl 100 Mg Tablet PO 100 mg BEDTIME DEVONTE Administration Vitamin D 25 mcg 04/22/20 09:00 05/12/20 08:44 Cholecalciferol (Vitamin D3) 25 Mcg Tablet PO 25 mcg DAILY DEVONTE Administration Allergies Allergies Allergy/AdvReac Type Severity Reaction Status Date / Time haloperidol [From HALDOL] Allergy Unknown UNKNOWN Unverified 12/03/19 15:27 Helidac Allergy Unknown seizure Uncoded 07/28/19 00:00 and stiffness Assessment & Plan Assessment & Plan (1) Schizoaffective disorder, bipolar type: Status: Acute Code(s): F25.0 - Schizoaffective disorder, bipolar type Assessment and Plan: -Increase Olanzapine to 25 mg hs -Message left for Dr. Ames [phone] re Clozaril trial as suggested this a.m. in team by Dr. Mckay and Sven Holbrook, pt's program RN [phone]. CBCD, LFT's Greater than 50% of the session was spent on counseling and/or coordination of care Reason for contiued inpatient stay Substantial Risk for: harm to self, harm to others, inability to function, rapid decompensation and med/psych decompensation
[2020-05-12 19:29] VITALS: BP 149/86; PULSE 114; TEMP 36.3; O2SAT 97
[2020-05-12] MEDS: OLANZapine 10 MG TABLET 25 MG PO (20:15)
[2020-05-12] MEDS: traZODone HCL 100 MG TABLET PO (20:16)
[2020-05-12] MEDS: Divalproex Sodium ER 500 MG TAB.ER.24H 1000 MG PO (20:16)
[2020-05-12 20:17] VITALS: BP 149/86; PULSE 114
[2020-05-12] MEDS: Metoprolol Tartrate 50 MG TABLET 25 MG PO (20:17)
[2020-05-13] MEDS: LORazepam 1 MG TABLET PO (00:01)
[2020-05-13] MEDS: OLANZapine 5 MG TABLET PO ×2 (00:01→08:44)
[2020-05-13] MEDS: Omeprazole 20 MG CAPSULE.DR PO (07:56)
[2020-05-13 08:26] LABS: MANUAL DIFF FLAG NO
[2020-05-13 08:30] LABS: Basophils Percent Auto 0.8 % (0-2); Eosinophils Absolute Auto 0.2 X10*3/uL (0.0-0.4); Eosinophils Percent Auto 4.1 % (0-4); Hematocrit 36.6 % (42-52); Hemoglobin 11.3 g/dl (14.0-18.0); Imm Gran Abs Auto 0.01 X10*3/uL (0.00-0.03); Imm Gran Pct Auto 0.2 % (0.0-0.4); Lymphocytes Absolute Auto 1.3 X10*3/uL (1.2-4.9); Lymphocytes Percent Auto 24.8 % (20-40); Mean Corpuscular HGB Conc 30.9 g/dl (31.0-36.0); Mean Corpuscular Volume 97.1 fL (80-98); Mean Platelet Volume 9.3 fL (9.4-12.4); Monocytes Absolute Auto 0.5 X10*3/uL (0.1-1.2); Neutrophils Absolute Auto 3.1 X10*3/uL (2.0-8.3); Neutrophils Percent Auto 60.1 % (45-73); Platelet Count 201 X10*3/uL (160-400); Red Blood Count 3.77 X10*6/uL (4.60-5.80); Red Cell Distribution Width 14.5 % (11.0-16.0); White Blood Count 5.1 X10*3/uL (4.8-10.8)
[2020-05-13 08:34] VITALS: BP 114/68; PULSE 92; RESP 18; TEMP 36.5; O2SAT 98
[2020-05-13] MEDS: chlorproMAZINE HCl 25 MG TABLET PO ×2 (08:43→20:34)
[2020-05-13 08:44] VITALS: BP 114/68; PULSE 92
[2020-05-13] MEDS: Metoprolol Tartrate 50 MG TABLET 25 MG PO ×2 (08:44→20:34)
[2020-05-13] MEDS: Divalproex Sodium 250 MG TABLET.DR PO (08:44)
[2020-05-13] MEDS: Finasteride 5 MG TABLET PO (08:44)
[2020-05-13] MEDS: Docusate Sodium 100 MG CAPSULE PO ×2 (08:44→20:34)
[2020-05-13] MEDS: Cholecalciferol (Vitamin D3) 25 MCG TABLET PO (08:44)
[2020-05-13 09:10] LABS: Alanine Aminotransferase 53 U/L (0-40); Albumin Level 4.1 g/dL (3.5-5.0); Alkaline Phosphatase 50 U/L (39-117); Aspartate Amino Transferase 37 U/L (5-37); Bilirubin Direct 0.3 mg/dL (0.0-0.5); Bilirubin Total 0.7 mg/dL (0.0-1.0); Total Protein 6.3 g/dL (6.5-8.0)
[2020-05-13 16:51] VITALS: BP 106/61; PULSE 79; RESP 18; TEMP 36.4; O2SAT 97
--- NOTE | 2020-05-13 17:50 | HO.PSYCHPN ---
Subjective Subjective Date of Service: 05/13/20 Reason For Visit: Bipolar disorder Subjective Notes: Conditional Voluntary (HCP Activated) Interim History: Quieter today. Smiles, less pressure of speech. Olanzapine increased by 5 mg 05/12. No word from OP team. Clozaril discussed in team-wanting OP team opinion if they can agree to this trial when discharged. Medication Compliance: Yes Side effects from medications: No Attending Groups: No Review of Systems Reports behavioral changes Psychiatric: Reports behavioral changes, Reports auditory hallucinations, Reports mood swings, Reports visual hallucinations and Reports hallucinations Mental Status Exam Mental Status Exam Patient Appearance: Disheveled Patient Orientation: Person Level of Consciousness: Awake and Alert Patient Behavior: Cooperative, Passive and Isolative Mood Description: Calm, Withdrawn and Relaxed Affect Description: Labile and Flat Patient Cognition Impaired: Yes Ability to Follow Directions: Good Speech Pattern: Spontaneous Speech and Cofabulation Memory Description: Remote Impaired, Immediate Impaired, Consulting Services Associate Impaired, Episodic Impaired, Recent Impaired, Working Impaired and Semantic Impaired Hallucinations: Auditory and Visual Delusions: Present Thought Process: Illogical and Slowed Thinking Thought Content: positive for Loose Associations and positive for Tangential Judgement: Poor Diagnostics Vital Signs (24Hr): Vital Signs - 24 hr 05/12/20 19:29 05/12/20 20:17 05/13/20 08:34 Temperature 97.4 F 97.7 F Pulse Rate 114 H 114 H 92 Respiratory Rate 18 Blood Pressure 149/86 H 149/86 H 114/68 Pulse Oximetry 97 98 05/13/20 08:44 05/13/20 16:51 Temperature 97.6 F Pulse Rate 92 79 Respiratory Rate 18 Blood Pressure 114/68 106/61 Pulse Oximetry 97 Body Mass Index 0.0 Labs Results: 05/13/20 08:05 05/04/20 07:43 Labs: Laboratory Results - last 48 hr 05/13/20 05/13/20 08:05 08:05 WBC 5.1 RBC 3.77 L Hgb 11.3 L Hct 36.6 L MCV 97.1 MCH 30.0 MCHC 30.9 L RDW 14.5 Plt Count 201 MPV 9.3 L Immature Gran % (Auto) 0.2 Neut % (Auto) 60.1 Lymph % (Auto) 24.8 [place] % (Auto) 10.0 Eos % (Auto) 4.1 H Baso % (Auto) 0.8 Lymph # (Auto) 1.3 [place] # (Auto) 0.5 Eos # (Auto) 0.2 Baso # (Auto) 0.0 Abs Immat Gran (auto) 0.01 Absolute Neuts (auto) 3.1 Absolute Nucleated RBC 0.000 Nucleated RBC % (auto) 0.0 Total Bilirubin 0.7 Direct Bilirubin 0.3 AST 37 ALT 53 H Alkaline Phosphatase 50 Total Protein 6.3 L Albumin 4.1 Imaging Radiology Impressions: ITS Impressions Chest X-Ray 04/17/20 07:27 IMPRESSION: No acute cardiopulmonary findings Head CT 04/17/20 07:27 IMPRESSION: No acute intracranial findings. Sinus disease as described. Modified Barium Swallow 05/04/20 15:36 IMPRESSION: No significant abnormality identified on modified barium swallow. Please refer to speech pathology report for details. Chest X-Ray 05/05/20 19:15 IMPRESSION: No evidence for acute disease. Medications Medications Current Medications Generic Name Dose Route Start Last Admin Trade Name Freq PRN Reason Stop Dose Admin Acetaminophen 650 mg 04/18/20 18:48 05/11/20 15:53 Acetaminophen 325 Mg Tablet PO 650 mg Q6H PRN Administration Headache/Pain Mild Scale (1-3) Al Hydroxide/Mg Hydroxide 30 ml 04/18/20 18:48 Magnesium Hydrox/Alum Hydrox 30 Ml Oral.Susp PO Q6H PRN Heartburn/Nausea Chlorpromazine HCl 25 mg 05/09/20 21:00 05/13/20 08:43 Chlorpromazine Hcl 25 Mg Tablet PO 25 mg BID DEVONTE Administration Divalproex Sodium 1,000 mg 04/17/20 21:00 05/12/20 20:16 Divalproex Sodium Er 500 Mg Tab.Er.24h PO 1,000 mg BEDTIME DEVONTE Administration Divalproex Sodium 250 mg 04/22/20 09:00 05/13/20 08:44 Divalproex Sodium 250 Mg Tablet.Dr PO 250 mg DAILY DEVONTE Administration Docusate Sodium 100 mg 04/29/20 21:00 05/13/20 08:44 Docusate Sodium 100 Mg Capsule PO 100 mg BID DEVONTE Administration Finasteride 5 mg 04/17/20 14:00 05/13/20 08:44 Finasteride 5 Mg Tablet PO 5 mg DAILY DEVONTE Administration Lorazepam 1 mg 05/12/20 16:51 05/13/20 00:01 Lorazepam 1 Mg Tablet PO 1 mg Q4H PRN Administration anxiety, agitation Magnesium Hydroxide 30 ml 04/18/20 18:48 05/09/20 19:27 Milk Of Magnesia 30 Ml Oral.Susp PO 30 ml DAILY PRN Administration Constipation Metoprolol Tartrate 25 mg 04/17/20 14:00 05/13/20 08:44 Metoprolol Tartrate 50 Mg Tablet PO 25 mg BID DEVONTE Administration Protocol Olanzapine 5 mg 04/19/20 07:01 05/13/20 08:44 Olanzapine 5 Mg Tablet PO 5 mg Q4H PRN Administration Psychosis,blake Olanzapine 25 mg 05/12/20 21:00 05/12/20 20:15 Olanzapine 10 Mg Tablet PO 25 mg BEDTIME DEVONTE Administration Omeprazole 20 mg 05/04/20 17:20 05/13/20 07:56 Omeprazole 20 Mg Capsule. PO 20 mg DAILY@0630 DEVONTE Administration Trazodone HCl 100 mg 05/01/20 21:00 05/12/20 20:16 Trazodone Hcl 100 Mg Tablet PO 100 mg BEDTIME DEVONTE Administration Vitamin D 25 mcg 04/22/20 09:00 05/13/20 08:44 Cholecalciferol (Vitamin D3) 25 Mcg Tablet PO 25 mcg DAILY DEVONTE Administration Allergies Allergies Allergy/AdvReac Type Severity Reaction Status Date / Time haloperidol [From HALDOL] Allergy Unknown UNKNOWN Unverified 12/03/19 15:27 Helidac Allergy Unknown seizure Uncoded 07/28/19 00:00 and stiffness Assessment & Plan Assessment & Plan (1) Schizoaffective disorder, bipolar type: Status: Acute Code(s): F25.0 - Schizoaffective disorder, bipolar type Assessment and Plan: -Continue current plan. (2) Anemia: Status: Acute Code(s): D64.9 - Anemia, unspecified Assessment and Plan: -hematology consultation. Greater than 50% of the session was spent on counseling and/or coordination of care Reason for contiued inpatient stay Substantial Risk for: harm to self, harm to others, inability to function, rapid decompensation and med/psych decompensation
[2020-05-13] MEDS: OLANZapine 10 MG TABLET 25 MG PO (20:33)
[2020-05-13] MEDS: traZODone HCL 100 MG TABLET PO (20:33)
[2020-05-13 20:34] VITALS: BP 121/77; PULSE 97
[2020-05-13] MEDS: Divalproex Sodium ER 500 MG TAB.ER.24H 1000 MG PO (20:34)
[2020-05-14] MEDS: Divalproex Sodium 250 MG TABLET.DR PO (08:39)
[2020-05-14] MEDS: Docusate Sodium 100 MG CAPSULE PO ×2 (08:39→20:18)
[2020-05-14] MEDS: Omeprazole 20 MG CAPSULE.DR PO (08:39)
[2020-05-14] MEDS: OLANZapine 5 MG TABLET PO (08:39)
[2020-05-14] MEDS: Cholecalciferol (Vitamin D3) 25 MCG TABLET PO (08:39)
[2020-05-14] MEDS: Metoprolol Tartrate 50 MG TABLET 25 MG PO ×2 (08:39→20:19)
[2020-05-14] MEDS: chlorproMAZINE HCl 25 MG TABLET PO ×2 (08:39→20:18)
[2020-05-14] MEDS: LORazepam 1 MG TABLET PO (08:39)
[2020-05-14] MEDS: Finasteride 5 MG TABLET PO (08:39)
--- NOTE | 2020-05-14 08:41 | HO.PSYCHPN ---
Subjective Subjective Date of Service: 05/14/20 Reason For Visit: Bipolar disorder Interim History: 05/14: Much the same presentation. unkempt, POS/FOI, tangential speech. Ct plan 05/13:Quieter today. Smiles, less pressure of speech. Olanzapine increased by 5 mg 05/12. No word from OP team. Clozaril discussed in team-wanting OP team opinion if they can agree to this trial when discharged. Review of Systems Review of Systems Yes Unobtainable due to mental status Cardiovascular: Reports other (hypotensive, metoprolol held this a.m.) Reports behavioral changes and Reports confusion Psychiatric: Reports abnormal sleep pattern (per team sleep improving), Reports behavioral changes, Reports change in appetite, Reports confusion, Reports difficulty concentrating, Reports auditory hallucinations, Reports irritability, Reports anhedonia, Reports mood swings, Reports paranoia, Reports visual hallucinations, Reports hallucinations, Reports tactile hallucinations, Reports homicidal ideation (no sx) and Reports suicidal ideation (no sx) Hematologic/Lymphatic: Reports other (anemia-messages left with PCP to discuss current values) Mental Status Exam Mental Status Exam Patient Appearance: Disheveled Patient Orientation: Person Level of Consciousness: Awake and Alert Patient Behavior: Cooperative, Passive and Isolative Mood Description: Calm, Withdrawn and Relaxed Affect Description: Labile and Flat Patient Cognition Impaired: Yes Ability to Follow Directions: Good Speech Pattern: Spontaneous Speech and Cofabulation Memory Description: Remote Impaired, Immediate Impaired, Traffic Signal Repairer Impaired, Episodic Impaired, Recent Impaired, Working Impaired and Semantic Impaired Diagnostics Vital Signs (24Hr): Vital Signs - 24 hr 05/13/20 08:44 05/13/20 16:51 05/13/20 20:34 Temperature 97.6 F Pulse Rate 92 79 97 Respiratory Rate 18 Blood Pressure 114/68 106/61 121/77 Pulse Oximetry 97 Body Mass Index 0.0 Labs Results: 05/13/20 08:05 05/04/20 07:43 Labs: Laboratory Results - last 48 hr 05/13/20 05/13/20 08:05 08:05 WBC 5.1 RBC 3.77 L Hgb 11.3 L Hct 36.6 L MCV 97.1 MCH 30.0 MCHC 30.9 L RDW 14.5 Plt Count 201 MPV 9.3 L Immature Gran % (Auto) 0.2 Neut % (Auto) 60.1 Lymph % (Auto) 24.8 [place] % (Auto) 10.0 Eos % (Auto) 4.1 H Baso % (Auto) 0.8 Lymph # (Auto) 1.3 [place] # (Auto) 0.5 Eos # (Auto) 0.2 Baso # (Auto) 0.0 Abs Immat Gran (auto) 0.01 Absolute Neuts (auto) 3.1 Absolute Nucleated RBC 0.000 Nucleated RBC % (auto) 0.0 Total Bilirubin 0.7 Direct Bilirubin 0.3 AST 37 ALT 53 H Alkaline Phosphatase 50 Total Protein 6.3 L Albumin 4.1 Imaging Radiology Impressions: ITS Impressions Chest X-Ray 04/17/20 07:27 IMPRESSION: No acute cardiopulmonary findings Head CT 04/17/20 07:27 IMPRESSION: No acute intracranial findings. Sinus disease as described. Modified Barium Swallow 05/04/20 15:36 IMPRESSION: No significant abnormality identified on modified barium swallow. Please refer to speech pathology report for details. Chest X-Ray 05/05/20 19:15 IMPRESSION: No evidence for acute disease. Medications Medications Current Medications Generic Name Dose Route Start Last Admin Trade Name Freq PRN Reason Stop Dose Admin Acetaminophen 650 mg 04/18/20 18:48 05/11/20 15:53 Acetaminophen 325 Mg Tablet PO 650 mg Q6H PRN Administration Headache/Pain Mild Scale (1-3) Al Hydroxide/Mg Hydroxide 30 ml 04/18/20 18:48 Magnesium Hydrox/Alum Hydrox 30 Ml Oral.Susp PO Q6H PRN Heartburn/Nausea Chlorpromazine HCl 25 mg 05/09/20 21:00 05/13/20 20:34 Chlorpromazine Hcl 25 Mg Tablet PO 25 mg BID DEVONTE Administration Divalproex Sodium 1,000 mg 04/17/20 21:00 05/13/20 20:34 Divalproex Sodium Er 500 Mg Tab.Er.24h PO 1,000 mg BEDTIME DEVONTE Administration Divalproex Sodium 250 mg 04/22/20 09:00 05/13/20 08:44 Divalproex Sodium 250 Mg Tablet.Dr PO 250 mg DAILY DEVONTE Administration Docusate Sodium 100 mg 04/29/20 21:00 05/13/20 20:34 Docusate Sodium 100 Mg Capsule PO 100 mg BID DEVONTE Administration Finasteride 5 mg 04/17/20 14:00 05/13/20 08:44 Finasteride 5 Mg Tablet PO 5 mg DAILY DEVONTE Administration Lorazepam 1 mg 05/12/20 16:51 05/13/20 00:01 Lorazepam 1 Mg Tablet PO 1 mg Q4H PRN Administration anxiety, agitation Magnesium Hydroxide 30 ml 04/18/20 18:48 05/09/20 19:27 Milk Of Magnesia 30 Ml Oral.Susp PO 30 ml DAILY PRN Administration Constipation Metoprolol Tartrate 25 mg 04/17/20 14:00 05/13/20 20:34 Metoprolol Tartrate 50 Mg Tablet PO 25 mg BID DEVONTE Administration Protocol Olanzapine 5 mg 04/19/20 07:01 05/13/20 08:44 Olanzapine 5 Mg Tablet PO 5 mg Q4H PRN Administration Psychosis,blake Olanzapine 25 mg 05/12/20 21:00 05/13/20 20:33 Olanzapine 10 Mg Tablet PO 25 mg BEDTIME DEVOTNE Administration Omeprazole 20 mg 05/04/20 17:20 05/13/20 07:56 Omeprazole 20 Mg Capsule.Dr PO 20 mg DAILY@0630 DEVONTE Administration Trazodone HCl 100 mg 05/01/20 21:00 05/13/20 20:33 Trazodone Hcl 100 Mg Tablet PO 100 mg BEDTIME DEVONTE Administration Vitamin D 25 mcg 04/22/20 09:00 05/13/20 08:44 Cholecalciferol (Vitamin D3) 25 Mcg Tablet PO 25 mcg DAILY DEVONTE Administration Allergies Allergies Allergy/AdvReac Type Severity Reaction Status Date / Time haloperidol [From HALDOL] Allergy Unknown UNKNOWN Unverified 12/03/19 15:27 Helidac Allergy Unknown seizure Uncoded 07/28/19 00:00 and stiffness Assessment & Plan Assessment & Plan (1) Schizoaffective disorder, bipolar type: Status: Acute Code(s): F25.0 - Schizoaffective disorder, bipolar type Assessment and Plan: -Continue current plan. (2) Anemia: Status: Acute Code(s): D64.9 - Anemia, unspecified Assessment and Plan: -hematology consultation. Greater than 50% of the session was spent on counseling and/or coordination of care Reason for contiued inpatient stay Substantial Risk for: inability to function
[2020-05-14 18:00] VITALS: BP 124/62; PULSE 78; RESP 18; TEMP 36.3
[2020-05-14] MEDS: OLANZapine 10 MG TABLET 25 MG PO (20:15)
[2020-05-14] MEDS: Acetaminophen 325 MG TABLET 650 MG PO (20:17)
[2020-05-14] MEDS: traZODone HCL 100 MG TABLET PO (20:18)
[2020-05-14] MEDS: Divalproex Sodium ER 500 MG TAB.ER.24H 1000 MG PO (20:18)
[2020-05-14 20:19] VITALS: BP 124/62; PULSE 78
[2020-05-15 06:30] VITALS: BP 118/67; PULSE 79; RESP 18; TEMP 36.1; O2SAT 97
[2020-05-15] MEDS: OLANZapine 5 MG TABLET PO (08:21)
[2020-05-15] MEDS: Omeprazole 20 MG CAPSULE.DR PO (08:21)
[2020-05-15] MEDS: Docusate Sodium 100 MG CAPSULE PO ×2 (08:21→20:35)
[2020-05-15] MEDS: Divalproex Sodium 250 MG TABLET.DR PO (08:21)
[2020-05-15] MEDS: Cholecalciferol (Vitamin D3) 25 MCG TABLET PO (08:21)
[2020-05-15] MEDS: LORazepam 1 MG TABLET PO (08:21)
[2020-05-15] MEDS: Metoprolol Tartrate 50 MG TABLET 25 MG PO ×2 (08:21→20:35)
[2020-05-15] MEDS: chlorproMAZINE HCl 25 MG TABLET PO ×2 (08:21→20:35)
[2020-05-15] MEDS: Finasteride 5 MG TABLET PO (08:21)
--- NOTE | 2020-05-15 10:41 | P.PNPSI_ITS ---
Subjective Subjective Date of Service: 05/15/20 Reason For Visit: Bipolar disorder Interim History: 05/15: Patient appears brighter and more logical today stated that his skin was dry. Then speech became disorganized. Self-care is poor. Will add Eucerin cream t.i.d.. 05/14: Much the same presentation. unkempt, POS/FOI, tangential speech. Ct plan 05/13:Quieter today. Smiles, less pressure of speech. Olanzapine increased by 5 mg 05/12. No word from OP team. Clozaril discussed in team-wanting OP team opinion if they can agree to this trial when discharged. Review of Systems Review of Systems Yes Unobtainable due to mental status Cardiovascular: Reports other (hypotensive, metoprolol held this a.m.) Reports behavioral changes and Reports confusion Psychiatric: Reports abnormal sleep pattern (per team sleep improving), Reports behavioral changes, Reports change in appetite, Reports confusion, Reports difficulty concentrating, Reports auditory hallucinations, Reports irritability, Reports anhedonia, Reports mood swings, Reports paranoia, Reports visual hallucinations, Reports hallucinations, Reports tactile hallucinations, Reports homicidal ideation (no sx) and Reports suicidal ideation (no sx) Hematologic/Lymphatic: Reports other (anemia-messages left with PCP to discuss current values) Mental Status Exam Mental Status Exam Patient Appearance: Disheveled Patient Orientation: Person Level of Consciousness: Awake and Alert Patient Behavior: Cooperative, Passive and Isolative Mood Description: Calm, Withdrawn and Relaxed Affect Description: Labile and Flat Patient Cognition Impaired: Yes Ability to Follow Directions: Good Speech Pattern: Spontaneous Speech and Cofabulation Memory Description: Remote Impaired, Immediate Impaired, Marketing Content Coordinator Impaired, Episodic Impaired, Recent Impaired, Working Impaired and Semantic Impaired Diagnostics Vital Signs (24Hr): Vital Signs - 24 hr 05/14/20 18:00 05/14/20 20:19 05/15/20 06:30 Temperature 97.4 F 97 F Pulse Rate 78 78 79 Respiratory Rate 18 18 Blood Pressure 124/62 124/62 118/67 Pulse Oximetry 97 Body Mass Index 0.0 Labs Results: 05/13/20 08:05 05/04/20 07:43 Imaging Radiology Impressions: ITS Impressions Chest X-Ray 04/17/20 07:27 IMPRESSION: No acute cardiopulmonary findings Head CT 04/17/20 07:27 IMPRESSION: No acute intracranial findings. Sinus disease as described. Modified Barium Swallow 05/04/20 15:36 IMPRESSION: No significant abnormality identified on modified barium swallow. Please refer to speech pathology report for details. Chest X-Ray 05/05/20 19:15 IMPRESSION: No evidence for acute disease. Medications Medications Current Medications Generic Name Dose Route Start Last Admin Trade Name Freq PRN Reason Stop Dose Admin Acetaminophen 650 mg 04/18/20 18:48 05/14/20 20:17 Acetaminophen 325 Mg Tablet PO 650 mg Q6H PRN Administration Headache/Pain Mild Scale (1-3) Al Hydroxide/Mg Hydroxide 30 ml 04/18/20 18:48 Magnesium Hydrox/Alum Hydrox 30 Ml Oral.Susp PO Q6H PRN Heartburn/Nausea Chlorpromazine HCl 25 mg 05/09/20 21:00 05/15/20 08:21 Chlorpromazine Hcl 25 Mg Tablet PO 25 mg BID DEVONTE Administration Divalproex Sodium 1,000 mg 04/17/20 21:00 05/14/20 20:18 Divalproex Sodium Er 500 Mg Tab.Er.24h PO 1,000 mg BEDTIME DEVONTE Administration Divalproex Sodium 250 mg 04/22/20 09:00 05/15/20 08:21 Divalproex Sodium 250 Mg Tablet.Dr PO 250 mg DAILY DEVONTE Administration Docusate Sodium 100 mg 04/29/20 21:00 05/15/20 08:21 Docusate Sodium 100 Mg Capsule PO 100 mg BID DEVONTE Administration Finasteride 5 mg 04/17/20 14:00 05/15/20 08:21 Finasteride 5 Mg Tablet PO 5 mg DAILY DEVONTE Administration Lorazepam 1 mg 05/12/20 16:51 05/15/20 08:21 Lorazepam 1 Mg Tablet PO 1 mg Q4H PRN Administration anxiety, agitation Magnesium Hydroxide 30 ml 04/18/20 18:48 05/09/20 19:27 Milk Of Magnesia 30 Ml Oral.Susp PO 30 ml DAILY PRN Administration Constipation Metoprolol Tartrate 25 mg 04/17/20 14:00 05/15/20 08:21 Metoprolol Tartrate 50 Mg Tablet PO 25 mg BID DEVONTE Administration Protocol Olanzapine 5 mg 04/19/20 07:01 05/15/20 08:21 Olanzapine 5 Mg Tablet PO 5 mg Q4H PRN Administration Psychosis,blake Olanzapine 25 mg 05/12/20 21:00 05/14/20 20:15 Olanzapine 10 Mg Tablet PO 25 mg BEDTIME DEVONTE Administration Omeprazole 20 mg 05/04/20 17:20 05/15/20 08:21 Omeprazole 20 Mg Capsule. PO 20 mg DAILY@0630 DEVONTE Administration Trazodone HCl 100 mg 05/01/20 21:00 05/14/20 20:18 Trazodone Hcl 100 Mg Tablet PO 100 mg BEDTIME DEVONTE Administration Vitamin D 25 mcg 04/22/20 09:00 05/15/20 08:21 Cholecalciferol (Vitamin D3) 25 Mcg Tablet PO 25 mcg DAILY DEVONTE Administration Allergies Allergies Allergy/AdvReac Type Severity Reaction Status Date / Time haloperidol [From HALDOL] Allergy Unknown UNKNOWN Unverified 12/03/19 15:27 Helidac Allergy Unknown seizure Uncoded 07/28/19 00:00 and stiffness Assessment & Plan Assessment & Plan (1) Schizoaffective disorder, bipolar type: Status: Acute Code(s): F25.0 - Schizoaffective disorder, bipolar type Assessment and Plan: -Continue current plan. (2) Anemia: Status: Acute Code(s): D64.9 - Anemia, unspecified Assessment and Plan: -hematology consultation. Greater than 50% of the session was spent on counseling and/or coordination of care Reason for contiued inpatient stay Substantial Risk for: inability to function
[2020-05-15 18:00] VITALS: BP 114/69; PULSE 89; RESP 18; TEMP 36.3; O2SAT 98
[2020-05-15] MEDS: OLANZapine 10 MG TABLET 25 MG PO (20:34)
[2020-05-15 20:35] VITALS: BP 114/69; PULSE 89
[2020-05-15] MEDS: traZODone HCL 100 MG TABLET PO (20:35)
[2020-05-15] MEDS: Divalproex Sodium ER 500 MG TAB.ER.24H 1000 MG PO (20:35)
[2020-05-15] MEDS: Mineral Oil/Petrolatum,White 106 GM Tube 1 APPL TOPICAL (22:28)
[2020-05-16 06:20] VITALS: BP 123/75; PULSE 78; RESP 18; TEMP 36.6; O2SAT 97
[2020-05-16 08:31] VITALS: BP 123/75; PULSE 78
[2020-05-16] MEDS: Docusate Sodium 100 MG CAPSULE PO ×2 (08:31→21:34)
[2020-05-16] MEDS: chlorproMAZINE HCl 25 MG TABLET PO ×2 (08:31→21:34)
[2020-05-16] MEDS: Metoprolol Tartrate 50 MG TABLET 25 MG PO ×2 (08:31→21:35)
[2020-05-16] MEDS: Cholecalciferol (Vitamin D3) 25 MCG TABLET PO (08:32)
[2020-05-16] MEDS: Omeprazole 20 MG CAPSULE.DR PO (08:32)
[2020-05-16] MEDS: Finasteride 5 MG TABLET PO (08:32)
[2020-05-16] MEDS: Divalproex Sodium 250 MG TABLET.DR PO (08:32)
[2020-05-16] MEDS: Mineral Oil/Petrolatum,White 106 GM Tube 1 APPL TOPICAL ×2 (13:01→21:35)
--- NOTE | 2020-05-16 14:47 | P.PNPSI_ITS ---
Subjective Subjective Date of Service: 05/16/20 Reason For Visit: Bipolar disorder Subjective Notes: Conditional Voluntary (HCP activated) Interim History: Team reports a calmer weekend with some minor improvements and settling of behaviors. Hematology consult requested to evaluate anemia. Pt quieter, improved ability to articulate intermittently, but with ongoing lability and misinterpretation of environmental stimuli. Will continue dosing as is today. Medication Compliance: Yes Side effects from medications: No Attending Groups: No Review of Systems Review of Systems Yes Unobtainable due to mental status Reports behavioral changes Psychiatric: Reports behavioral changes, Reports difficulty concentrating, Reports auditory hallucinations, Reports mood swings, Reports visual hallucinations and Reports hallucinations Mental Status Exam Mental Status Exam Patient Appearance: Disheveled Patient Orientation: Person Level of Consciousness: Awake and Sedated (at times) Patient Behavior: Talkative, Hyperactive, Passive, Timid, Wandering, Distractible, Confused and Impulsive Mood Description: Calm, Happy, Withdrawn, Cheerful, Blunted, Flat and Apprehensive Affect Description: Labile Patient Cognition Impaired: Yes Ability to Follow Directions: Fair Speech Pattern: Clear (at times), Monotone, Spontaneous Speech, Soft-Spoken, Loud, Pressured and Poor Articulation Memory Description: Remote Impaired, Immediate Impaired, Cast Shell Grinder Impaired and Episodic Impaired Hallucinations: Auditory and Visual Delusions: Present Thought Process: Illogical and Distracted Thought Content: positive for Flight of Ideas, positive for Loose Associations and positive for Tangential Depressive Symptoms: Increased Fatigue and Loss of Energy Judgement: Poor Diagnostics Vital Signs (24Hr): Vital Signs - 24 hr 05/15/20 18:00 05/15/20 20:35 05/16/20 06:20 Temperature 97.4 F 97.8 F Pulse Rate 89 89 78 Respiratory Rate 18 18 Blood Pressure 114/69 114/69 123/75 Pulse Oximetry 98 97 05/16/20 08:31 Temperature Pulse Rate 78 Respiratory Rate Blood Pressure 123/75 Pulse Oximetry Body Mass Index 0.0 Labs Results: 05/13/20 08:05 05/04/20 07:43 Imaging Radiology Impressions: ITS Impressions Chest X-Ray 04/17/20 07:27 IMPRESSION: No acute cardiopulmonary findings Head CT 04/17/20 07:27 IMPRESSION: No acute intracranial findings. Sinus disease as described. Modified Barium Swallow 05/04/20 15:36 IMPRESSION: No significant abnormality identified on modified barium swallow. Please refer to speech pathology report for details. Chest X-Ray 05/05/20 19:15 IMPRESSION: No evidence for acute disease. Medications Medications Current Medications Generic Name Dose Route Start Last Admin Trade Name Markq PRN Reason Stop Dose Admin Acetaminophen 650 mg 04/18/20 18:48 05/14/20 20:17 Acetaminophen 325 Mg Tablet PO 650 mg Q6H PRN Administration Headache/Pain Mild Scale (1-3) Al Hydroxide/Mg Hydroxide 30 ml 04/18/20 18:48 Magnesium Hydrox/Alum Hydrox 30 Ml Oral.Susp PO Q6H PRN Heartburn/Nausea Chlorpromazine HCl 25 mg 05/09/20 21:00 05/16/20 08:31 Chlorpromazine Hcl 25 Mg Tablet PO 25 mg BID DEVONTE Administration Divalproex Sodium 1,000 mg 04/17/20 21:00 05/15/20 20:35 Divalproex Sodium Er 500 Mg Tab.Er.24h PO 1,000 mg BEDTIME DEVONTE Administration Divalproex Sodium 250 mg 04/22/20 09:00 05/16/20 08:32 Divalproex Sodium 250 Mg Tablet.Dr PO 250 mg DAILY DEVONTE Administration Docusate Sodium 100 mg 04/29/20 21:00 05/16/20 08:31 Docusate Sodium 100 Mg Capsule PO 100 mg BID DEVONTE Administration Finasteride 5 mg 04/17/20 14:00 05/16/20 08:32 Finasteride 5 Mg Tablet PO 5 mg DAILY DEVONTE Administration Lorazepam 1 mg 05/12/20 16:51 05/15/20 08:21 Lorazepam 1 Mg Tablet PO 1 mg Q4H PRN Administration anxiety, agitation Magnesium Hydroxide 30 ml 04/18/20 18:48 05/09/20 19:27 Milk Of Magnesia 30 Ml Oral.Susp PO 30 ml DAILY PRN Administration Constipation Metoprolol Tartrate 25 mg 04/17/20 14:00 05/16/20 08:31 Metoprolol Tartrate 50 Mg Tablet PO 25 mg BID DEVONTE Administration Protocol Multi-Ingred Cream/Lotion/Oil/Oint 1 appl 05/15/20 10:40 05/16/20 13:01 Mineral Oil/Petrolatum,White 106 Gm Tube TOPICAL 1 appl BID DEVONTE Administration Olanzapine 5 mg 04/19/20 07:01 05/15/20 08:21 Olanzapine 5 Mg Tablet PO 5 mg Q4H PRN Administration Psychosis,blake Olanzapine 25 mg 05/12/20 21:00 05/15/20 20:34 Olanzapine 10 Mg Tablet PO 25 mg BEDTIME DEVONTE Administration Omeprazole 20 mg 05/04/20 17:20 05/16/20 08:32 Omeprazole 20 Mg Capsule. PO 20 mg DAILY@0630 DEVONTE Administration Trazodone HCl 100 mg 05/01/20 21:00 05/15/20 20:35 Trazodone Hcl 100 Mg Tablet PO 100 mg BEDTIME DEVONTE Administration Vitamin D 25 mcg 04/22/20 09:00 05/16/20 08:32 Cholecalciferol (Vitamin D3) 25 Mcg Tablet PO 25 mcg DAILY DEVONTE Administration Allergies Allergies Allergy/AdvReac Type Severity Reaction Status Date / Time haloperidol [From HALDOL] Allergy Unknown UNKNOWN Unverified 12/03/19 15:27 Helidac Allergy Unknown seizure Uncoded 07/28/19 00:00 and stiffness Assessment & Plan Assessment & Plan (1) Schizoaffective disorder, bipolar type: Status: Acute Code(s): F25.0 - Schizoaffective disorder, bipolar type Assessment and Plan: Continue current regime (2) Anemia: Status: Acute Code(s): D64.9 - Anemia, unspecified Assessment and Plan: Hematology consult requested. Greater than 50% of the session was spent on counseling and/or coordination of care Reason for contiued inpatient stay Substantial Risk for: harm to self, harm to others, inability to function, rapid decompensation and med/psych decompensation
[2020-05-16 18:00] VITALS: BP 123/71; PULSE 95; RESP 16; TEMP 36.4; O2SAT 97
[2020-05-16] MEDS: OLANZapine 10 MG TABLET 25 MG PO (21:33)
[2020-05-16] MEDS: Divalproex Sodium ER 500 MG TAB.ER.24H 1000 MG PO (21:34)
[2020-05-16] MEDS: traZODone HCL 100 MG TABLET PO (21:34)
[2020-05-16 21:35] VITALS: BP 122/70; PULSE 94
[2020-05-17] MEDS: Omeprazole 20 MG CAPSULE.DR PO (05:58)
[2020-05-17 06:00] VITALS: BP 108/65; PULSE 84; RESP 16; TEMP 36.6; O2SAT 95
[2020-05-17 08:25] VITALS: BP 108/65; PULSE 84
[2020-05-17] MEDS: Finasteride 5 MG TABLET PO (08:25)
[2020-05-17] MEDS: Cholecalciferol (Vitamin D3) 25 MCG TABLET PO (08:25)
[2020-05-17] MEDS: Metoprolol Tartrate 50 MG TABLET 25 MG PO ×2 (08:25→20:17)
[2020-05-17] MEDS: Divalproex Sodium 250 MG TABLET.DR PO (08:25)
[2020-05-17] MEDS: chlorproMAZINE HCl 25 MG TABLET PO ×2 (08:25→20:16)
[2020-05-17] MEDS: Docusate Sodium 100 MG CAPSULE PO ×2 (08:25→20:16)
[2020-05-17] MEDS: Mineral Oil/Petrolatum,White 106 GM Tube 1 APPL TOPICAL (10:03)
[2020-05-17] MEDS: Milk of Magnesia 30 ML ORAL.SUSP PO (10:04)
[2020-05-17] MEDS: Acetaminophen 325 MG TABLET 650 MG PO (11:12)
--- NOTE | 2020-05-17 14:30 | P.CNHO_ITS ---
Subjective - Subjective Chief complaint: None Patient: new to practice Consult date: 05/17/20 Requesting Physician: Psychiatry service. Primary Care Provider: Angelo Higginbotham MD HPI - Consult Narrative Reason for consult: Anemia Narrative: Yomi Forman is a 60 year old male who currently admitted in inpatient psychiatr y, he has history of bipolar disorder. He was diagnosed with colon cancer in 2011, underwent resection by Dr. Jose and followed by oncology until 2015. He was not anemic then but since 2018 it appears that he has had fairly severe anemia. This appears to be related to blood loss, he had a groin hematoma that was evacuated. By January 2020 anemia resolved, his hemoglobin was 13 gram/dL. In March 2020 it was 12.2 gram/dL and it gradually declined to 11.3 gram/dL. Patient is a poor historian, he offers no complaints. He specifically denies abdominal pain, change in bowel habits, loss of appetite or weight loss. He has had regular follow-up with Dr. Elder and has undergone EGD/colonoscopy in the past. 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 He underwent cryotherapy for stage T1a cancer. He is being followed by Dr. Pham from Urology. Review of Systems - Constitutional Reports as per HPI, Reports no additional constitutional complaints - Neurologic Reports behavioral changes, Reports confusion PMFSH Medical History: Medical History (Last Updated 04/19/20 @ 17:46 by Joya Ridley APRN) Anemia Chronic headaches Colon cancer Depression Encephalopathy Esophageal stricture GERD (gastroesophageal reflux disease) Hernia HTN (hypertension) Hyperammonemia Paraneoplastic syndrome Renal cell carcinoma Schizoaffective disorder, bipolar type Schizophrenia Seizure Syncope Surgical History: Surgical History (Last Updated 04/19/20 @ 17:36 by Joya Ridley APRN) H/O hemicolectomy Social History: Social History (Last Reviewed 04/17/20 @ 07:41 by Chandni Gee MD) Living Situation History: Household Members: None Housing: Apartment Do you presently have visiting nurse or other home services: Yes Alcohol History: Unable to assess alcohol history related to: Unable to respond Unable to assess alcohol history related to: Unknown Alcohol intake: never Alcohol History Details: Alcohol intake frequency: does not drink Tobacco History: Smoking Status: Smoker, status unknown Substance Use History: Use of substances other than those prescribed or required for medical reasons : Unable to respond Currently Displaying Signs/Symptoms of Drug Intoxication Withdrawal: No Any prior treatment program specific to substance use: No Healthcare Practices: Spiritual Healthcare Practices: unknown Jewish Healthcare Practices: unknown Cultural Healthcare Practices: unknown Advance Directives: Advance Directives: No Advance Directives Information Provided: Yes Homicidal Assessment: Do you have thoughts of harming others: None Do you have a plan to hurt others: No Plan Nutrition Assessment: Recently lost weight without trying: Unsure Eating poorly because of decreased appetite: No Nutrition Risks: No Nutritional Risk Poor oral hygiene: No Occupation Assessmet: service: No Sex/Gender Assessment: Sexual orientation: unable to discuss Smoking status: Smoker, status unknown Home Medications and Allergies Current Medications: Current Medications Generic Name Dose Route Start Last Admin Trade Name Freq PRN Reason Stop Dose Admin Acetaminophen 650 mg 04/18/20 18:48 05/17/20 11:12 Acetaminophen 325 Mg Tablet PO 650 mg Q6H PRN Administration Headache/Pain Mild Scale (1-3) Al Hydroxide/Mg Hydroxide 30 ml 04/18/20 18:48 Magnesium Hydrox/Alum Hydrox 30 Ml Oral.Susp PO Q6H PRN Heartburn/Nausea Chlorpromazine HCl 25 mg 05/09/20 21:00 05/17/20 08:25 Chlorpromazine Hcl 25 Mg Tablet PO 25 mg BID DEVONTE Administration Divalproex Sodium 1,000 mg 04/17/20 21:00 05/16/20 21:34 Divalproex Sodium Er 500 Mg Tab.Er.24h PO 1,000 mg BEDTIME DEVONTE Administration Divalproex Sodium 250 mg 04/22/20 09:00 05/17/20 08:25 Divalproex Sodium 250 Mg Tablet.Dr PO 250 mg DAILY DEVONTE Administration Docusate Sodium 100 mg 04/29/20 21:00 05/17/20 08:25 Docusate Sodium 100 Mg Capsule PO 100 mg BID DEVONTE Administration Finasteride 5 mg 04/17/20 14:00 05/17/20 08:25 Finasteride 5 Mg Tablet PO 5 mg DAILY DEVONTE Administration Lorazepam 1 mg 05/12/20 16:51 05/15/20 08:21 Lorazepam 1 Mg Tablet PO 1 mg Q4H PRN Administration anxiety, agitation Magnesium Hydroxide 30 ml 04/18/20 18:48 05/17/20 10:04 Milk Of Magnesia 30 Ml Oral.Susp PO 30 ml DAILY PRN Administration Constipation Metoprolol Tartrate 25 mg 04/17/20 14:00 05/17/20 08:25 Metoprolol Tartrate 50 Mg Tablet PO 25 mg BID DEVONTE Administration Protocol Multi-Ingred Cream/Lotion/Oil/Oint 1 appl 05/15/20 10:40 05/17/20 10:03 Mineral Oil/Petrolatum,White 106 Gm Tube TOPICAL 1 appl BID DEVONTE Administration Olanzapine 5 mg 04/19/20 07:01 05/15/20 08:21 Olanzapine 5 Mg Tablet PO 5 mg Q4H PRN Administration Psychosis,blake Olanzapine 25 mg 05/12/20 21:00 05/16/20 21:33 Olanzapine 10 Mg Tablet PO 25 mg BEDTIME DEVONTE Administration Omeprazole 20 mg 05/04/20 17:20 05/17/20 05:58 Omeprazole 20 Mg Capsule.Dr PO 20 mg DAILY@0630 DEVONTE Administration Trazodone HCl 100 mg 05/01/20 21:00 05/16/20 21:34 Trazodone Hcl 100 Mg Tablet PO 100 mg BEDTIME DEVONTE Administration Vitamin D 25 mcg 04/22/20 09:00 05/17/20 08:25 Cholecalciferol (Vitamin D3) 25 Mcg Tablet PO 25 mcg DAILY DEVONTE Administration Home Medications Medication Instructions Recorded Confirmed Type olanzapine 10 mg tablet 10 mg PO BEDTIME 01/28/20 04/17/20 History trazodone 100 mg tablet 100 mg PO BEDTIME PRN 01/28/20 04/17/20 History divalproex [Depakote ER] 1,000 mg PO BEDTIME 04/17/20 04/17/20 History metoprolol tartrate [Lopressor] 25 mg PO BID 04/17/20 04/17/20 History Allergies Allergy/AdvReac Type Severity Reaction Status Date / Time haloperidol [From HALDOL] Allergy Unknown UNKNOWN Unverified 12/03/19 15:27 Helidac Allergy Unknown seizure Uncoded 07/28/19 00:00 and stiffness Physical Exam Vital signs: Vital Signs Temp 97.8 F 05/17/20 06:00 Pulse 84 05/17/20 08:25 Resp 16 05/17/20 06:00 BP 108/65 05/17/20 08:25 Pulse Ox 95 05/17/20 06:00 Weight 87.1 kg - Constitutional Present: no acute distress - Routine HEENT Exam Head: Present: atraumatic Eye: Present: normal appearance, conjunctivae pale - Routine Respiratory Exam Present: CTAB - Routine Cardiovascular Exam Cardiovascular: Present: S1, S2 Hem/Onc Consult Result - Labs CBC & Chem 7: 05/13/20 08:05 05/04/20 07:43 Assessment and Plan (1) Anemia Status: Chronic 1. This is a 60-year-old male with history of stage II colon adenocarcinoma diagnosed in 2011 and stage I right kidney cancer in diagnosed in 2018. He went colonic resection and cryotherapy for treatment of these cancers respectively. He has been in remission, his last imaging with CT abdomen/pelvis in March 2019 showed no evidence of disease. He has developed mild renal insufficiency, rest of his blood work shows normal liver functions and electrolytes. He has no hepatosplenomegaly, normal B12 and folic acid levels. Iron studies are pending. He could have mild bone marrow suppression from some of his psychiatric medications. Both Depakote and Thorazine or associated with anemia/cytopenias. Renal insufficiency may also contribute to his anemia. It could be nutritional if his diet was not good in the recent months. Since his anemia is not far from his baseline, this can be monitored for now. I thank you for this consultation.
[2020-05-17 18:00] VITALS: BP 105/68; PULSE 84; TEMP 36.4
--- NOTE | 2020-05-17 18:59 | HO.PSYCHPN ---
Subjective Subjective Date of Service: 05/17/20 Reason For Visit: Bipolar disorder Subjective Notes: Legal Status and Conditional Voluntary (HCP activated) Interim History: Alert, interactive, appears improved. Attentive to environment, speech is clearer. Pt is quiet, present, with less lability. He was able to talk with TW for an extended period and was on target while he observed the front parking lot and others behavior while coming into the hospital Medication Compliance: Yes Side effects from medications: No Attending Groups: No Review of Systems Review of Systems Yes all other systems are reviewed and are negative (seen by hematology today.) Psychiatric: Reports no additional psychiatric complaints Mental Status Exam Mental Status Exam Patient Appearance: Disheveled Patient Orientation: Person and Situation Level of Consciousness: Awake and Alert Patient Behavior: Appropriate, Talkative, Cooperative and Good Eye Contact Mood Description: Calm Affect Description: Flat Patient Cognition Impaired: Yes Ability to Follow Directions: Good Speech Pattern: Spontaneous Speech, Rambling and Pressured Memory Description: Remote Impaired Hallucinations: Auditory Delusions: Not Present Thought Process: Distracted Thought Content: positive for Flight of Ideas and positive for Tangential Judgement: Fair Diagnostics Vital Signs (24Hr): Vital Signs - 24 hr 05/16/20 21:35 05/17/20 06:00 05/17/20 08:25 Temperature 97.8 F Pulse Rate 94 84 84 Respiratory Rate 16 Blood Pressure 122/70 108/65 108/65 Pulse Oximetry 95 05/17/20 18:00 Temperature 97.6 F Pulse Rate 84 Respiratory Rate Blood Pressure 105/68 Pulse Oximetry Body Mass Index 0.0 Labs Results: 05/13/20 08:05 05/04/20 07:43 Imaging Radiology Impressions: ITS Impressions Chest X-Ray 04/17/20 07:27 IMPRESSION: No acute cardiopulmonary findings Head CT 04/17/20 07:27 IMPRESSION: No acute intracranial findings. Sinus disease as described. Modified Barium Swallow 05/04/20 15:36 IMPRESSION: No significant abnormality identified on modified barium swallow. Please refer to speech pathology report for details. Chest X-Ray 05/05/20 19:15 IMPRESSION: No evidence for acute disease. Medications Medications Current Medications Generic Name Dose Route Start Last Admin Trade Name Freq PRN Reason Stop Dose Admin Acetaminophen 650 mg 04/18/20 18:48 05/17/20 11:12 Acetaminophen 325 Mg Tablet PO 650 mg Q6H PRN Administration Headache/Pain Mild Scale (1-3) Al Hydroxide/Mg Hydroxide 30 ml 04/18/20 18:48 Magnesium Hydrox/Alum Hydrox 30 Ml Oral.Susp PO Q6H PRN Heartburn/Nausea Chlorpromazine HCl 25 mg 05/09/20 21:00 05/17/20 08:25 Chlorpromazine Hcl 25 Mg Tablet PO 25 mg BID DEVONTE Administration Divalproex Sodium 1,000 mg 04/17/20 21:00 05/16/20 21:34 Divalproex Sodium Er 500 Mg Tab.Er.24h PO 1,000 mg BEDTIME DEVONTE Administration Divalproex Sodium 250 mg 04/22/20 09:00 05/17/20 08:25 Divalproex Sodium 250 Mg Tablet. PO 250 mg DAILY DEVONTE Administration Docusate Sodium 100 mg 04/29/20 21:00 05/17/20 08:25 Docusate Sodium 100 Mg Capsule PO 100 mg BID DEVONTE Administration Finasteride 5 mg 04/17/20 14:00 05/17/20 08:25 Finasteride 5 Mg Tablet PO 5 mg DAILY DEVONTE Administration Lorazepam 1 mg 05/12/20 16:51 05/15/20 08:21 Lorazepam 1 Mg Tablet PO 1 mg Q4H PRN Administration anxiety, agitation Magnesium Hydroxide 30 ml 04/18/20 18:48 05/17/20 10:04 Milk Of Magnesia 30 Ml Oral.Susp PO 30 ml DAILY PRN Administration Constipation Metoprolol Tartrate 25 mg 04/17/20 14:00 05/17/20 08:25 Metoprolol Tartrate 50 Mg Tablet PO 25 mg BID DEVONTE Administration Protocol Multi-Ingred Cream/Lotion/Oil/Oint 1 appl 05/15/20 10:40 05/17/20 10:03 Mineral Oil/Petrolatum,White 106 Gm Tube TOPICAL 1 appl BID DEVONTE Administration Olanzapine 5 mg 04/19/20 07:01 05/15/20 08:21 Olanzapine 5 Mg Tablet PO 5 mg Q4H PRN Administration Psychosis,blake Olanzapine 25 mg 05/12/20 21:00 05/16/20 21:33 Olanzapine 10 Mg Tablet PO 25 mg BEDTIME DEVONTE Administration Omeprazole 20 mg 05/04/20 17:20 05/17/20 05:58 Omeprazole 20 Mg Capsule. PO 20 mg DAILY@0630 DEVONTE Administration Trazodone HCl 100 mg 05/01/20 21:00 05/16/20 21:34 Trazodone Hcl 100 Mg Tablet PO 100 mg BEDTIME DEVONTE Administration Vitamin D 25 mcg 04/22/20 09:00 05/17/20 08:25 Cholecalciferol (Vitamin D3) 25 Mcg Tablet PO 25 mcg DAILY DEVONTE Administration Allergies Allergies Allergy/AdvReac Type Severity Reaction Status Date / Time haloperidol [From HALDOL] Allergy Unknown UNKNOWN Unverified 12/03/19 15:27 Helidac Allergy Unknown seizure Uncoded 07/28/19 00:00 and stiffness Assessment & Plan Assessment & Plan (1) Schizoaffective disorder, bipolar type: Status: Acute Code(s): F25.0 - Schizoaffective disorder, bipolar type Assessment and Plan: continue current regime. Greater than 50% of the session was spent on counseling and/or coordination of care Reason for contiued inpatient stay Substantial Risk for: harm to self, harm to others, inability to function and med/psych decompensation
[2020-05-17] MEDS: Divalproex Sodium ER 500 MG TAB.ER.24H 1000 MG PO (20:16)
[2020-05-17 20:17] VITALS: BP 123/78; PULSE 77
[2020-05-17] MEDS: traZODone HCL 100 MG TABLET PO (20:19)
[2020-05-17] MEDS: OLANZapine 10 MG TABLET 25 MG PO (20:19)
[2020-05-18 06:30] VITALS: BP 92/53; PULSE 64; RESP 16; TEMP 36.4; O2SAT 95
[2020-05-18] MEDS: Omeprazole 20 MG CAPSULE.DR PO (08:38)
[2020-05-18] MEDS: Divalproex Sodium 250 MG TABLET.DR PO (08:38)
[2020-05-18] MEDS: Finasteride 5 MG TABLET PO (08:39)
[2020-05-18] MEDS: Cholecalciferol (Vitamin D3) 25 MCG TABLET PO (08:39)
[2020-05-18] MEDS: chlorproMAZINE HCl 25 MG TABLET PO ×2 (08:39→20:47)
[2020-05-18] MEDS: Docusate Sodium 100 MG CAPSULE PO ×2 (08:39→20:47)
[2020-05-18 09:22] VITALS: BP 92/53; PULSE 64
[2020-05-18 10:11] LABS: MANUAL DIFF FLAG NO
[2020-05-18 10:14] LABS: Basophils Percent Auto 0.7 % (0-2); Eosinophils Absolute Auto 0.3 X10*3/uL (0.0-0.4); Eosinophils Percent Auto 4.5 % (0-4); Hematocrit 37.9 % (42-52); Imm Gran Abs Auto 0.01 X10*3/uL (0.00-0.03); Imm Gran Pct Auto 0.2 % (0.0-0.4); Lymphocytes Absolute Auto 1.8 X10*3/uL (1.2-4.9); Lymphocytes Percent Auto 29.9 % (20-40); Mean Corpuscular HGB Conc 31.7 g/dl (31.0-36.0); Mean Corpuscular Hemoglobin 30.5 pg (27.0-33.0); Mean Corpuscular Volume 96.2 fL (80-98); Mean Platelet Volume 9.3 fL (9.4-12.4); Monocytes Absolute Auto 0.6 X10*3/uL (0.1-1.2); Monocytes Percent Auto 9.5 % (2-11); Neutrophils Absolute Auto 3.3 X10*3/uL (2.0-8.3); Neutrophils Percent Auto 55.2 % (45-73); Platelet Count 204 X10*3/uL (160-400); Red Blood Count 3.94 X10*6/uL (4.60-5.80)
[2020-05-18 10:48] LABS: Anion Gap 10 (12-20); Blood Urea Nitrogen 13 mg/dL (9-16); Carbon Dioxide 27 mmol/L (22-29); Chloride 105 mmol/L (96-108); Estimated Glomerular Filt Rate > 60; Glucose Random 143 mg/dL (60-115); Iron 61 mcg/dL (45-160); Lactate Dehydrogenase 180 U/L (118-273); Percent Iron Saturation 18 % (15-50); Potassium 4.4 mmol/L (3.3-5.1); Sodium 138 mmol/L (135-145); Total Iron Binding Capacity 332 mcg/dL (228-428); Unsaturated Iron Binding 271 ug/dL
[2020-05-18] MEDS: Mineral Oil/Petrolatum,White 106 GM Tube 1 APPL TOPICAL ×2 (10:56→20:47)
--- NOTE | 2020-05-18 17:18 | HO.PSYCHPN ---
Subjective Subjective Date of Service: 05/18/20 Reason For Visit: Bipolar disorder Subjective Notes: Conditional Voluntary (HCP Activated) Interim History: Continues with some improvement. Team reports some outbursts of laughter and meow sounds in a jovial presentation. Visible. Pressured at times, more attentive to environmental cues as well as responsive. Discussed in team recommendations in returning to residential which has more care available for pt. Review of Systems Reports behavioral changes Psychiatric: Reports behavioral changes, Reports auditory hallucinations and Reports visual hallucinations Mental Status Exam Mental Status Exam Patient Appearance: Disheveled Patient Orientation: Person Level of Consciousness: Alert Patient Behavior: Appropriate, Talkative, Cooperative, Passive, Wandering, Distractible and Impulsive Mood Description: Labile Affect Description: Labile Patient Cognition Impaired: Yes Ability to Follow Directions: Good Speech Pattern: Clear, Garbled, Spontaneous Speech, Coherent, Rambling, Soft-Spoken, Mumbled, Rapid, Animated and Pressured Memory Description: Remote Impaired, Immediate Impaired and Episodic Impaired Hallucinations: Auditory Thought Process: Distracted Thought Content: positive for Circumstantial, positive for Loose Associations, positive for Tangential and positive for Disorganized Judgement: Fair Diagnostics Vital Signs (24Hr): Vital Signs - 24 hr 05/17/20 18:00 05/17/20 20:17 05/18/20 06:30 Temperature 97.6 F 97.5 F Pulse Rate 84 77 64 Respiratory Rate 16 Blood Pressure 105/68 123/78 92/53 L Pulse Oximetry 95 05/18/20 09:22 Temperature Pulse Rate 64 Respiratory Rate Blood Pressure 92/53 L Pulse Oximetry Body Mass Index 0.0 Labs Results: 05/18/20 10:03 05/18/20 10:04 Labs: Laboratory Results - last 48 hr 05/18/20 05/18/20 10:03 10:04 WBC 6.0 RBC 3.94 L Hgb 12.0 L Hct 37.9 L MCV 96.2 MCH 30.5 MCHC 31.7 RDW 14.0 Plt Count 204 MPV 9.3 L Immature Gran % (Auto) 0.2 Neut % (Auto) 55.2 Lymph % (Auto) 29.9 Stanley % (Auto) 9.5 Eos % (Auto) 4.5 H Baso % (Auto) 0.7 Lymph # (Auto) 1.8 Stanley # (Auto) 0.6 Eos # (Auto) 0.3 Baso # (Auto) 0.0 Abs Immat Gran (auto) 0.01 Absolute Neuts (auto) 3.3 Absolute Nucleated RBC 0.000 Nucleated RBC % (auto) 0.0 Sodium 138 Potassium 4.4 Chloride 105 Carbon Dioxide 27 Anion Gap 10 L BUN 13 Creatinine 0.99 Estim Creat Clear Calc TNP Estimated GFR > 60 Random Glucose 143 H Calcium 9.0 D Iron 61 TIBC 332 % Saturation 18 Unsat Iron Binding 271 Lactate Dehydrogenase 180 Imaging Radiology Impressions: ITS Impressions Chest X-Ray 04/17/20 07:27 IMPRESSION: No acute cardiopulmonary findings Head CT 04/17/20 07:27 IMPRESSION: No acute intracranial findings. Sinus disease as described. Modified Barium Swallow 05/04/20 15:36 IMPRESSION: No significant abnormality identified on modified barium swallow. Please refer to speech pathology report for details. Chest X-Ray 05/05/20 19:15 IMPRESSION: No evidence for acute disease. Medications Medications Current Medications Generic Name Dose Route Start Last Admin Trade Name Freq PRN Reason Stop Dose Admin Acetaminophen 650 mg 04/18/20 18:48 05/17/20 11:12 Acetaminophen 325 Mg Tablet PO 650 mg Q6H PRN Administration Headache/Pain Mild Scale (1-3) Al Hydroxide/Mg Hydroxide 30 ml 04/18/20 18:48 Magnesium Hydrox/Alum Hydrox 30 Ml Oral.Susp PO Q6H PRN Heartburn/Nausea Chlorpromazine HCl 25 mg 05/09/20 21:00 05/18/20 08:39 Chlorpromazine Hcl 25 Mg Tablet PO 25 mg BID DEVONTE Administration Divalproex Sodium 1,000 mg 04/17/20 21:00 05/17/20 20:16 Divalproex Sodium Er 500 Mg Tab.Er.24h PO 1,000 mg BEDTIME DEVONTE Administration Divalproex Sodium 250 mg 04/22/20 09:00 05/18/20 08:38 Divalproex Sodium 250 Mg Tablet.Dr PO 250 mg DAILY DEVONTE Administration Docusate Sodium 100 mg 04/29/20 21:00 05/18/20 08:39 Docusate Sodium 100 Mg Capsule PO 100 mg BID DEVONTE Administration Finasteride 5 mg 04/17/20 14:00 05/18/20 08:39 Finasteride 5 Mg Tablet PO 5 mg DAILY DEVONTE Administration Lorazepam 1 mg 05/12/20 16:51 05/15/20 08:21 Lorazepam 1 Mg Tablet PO 1 mg Q4H PRN Administration anxiety, agitation Magnesium Hydroxide 30 ml 04/18/20 18:48 05/17/20 10:04 Milk Of Magnesia 30 Ml Oral.Susp PO 30 ml DAILY PRN Administration Constipation Metoprolol Tartrate 25 mg 04/17/20 14:00 05/18/20 09:22 Metoprolol Tartrate 50 Mg Tablet PO Not Given BID [facility] Protocol Multi-Ingred Cream/Lotion/Oil/Oint 1 appl 05/15/20 10:40 05/18/20 10:56 Mineral Oil/Petrolatum,White 106 Gm Tube TOPICAL 1 appl BID DEVONTE Administration Olanzapine 5 mg 04/19/20 07:01 05/15/20 08:21 Olanzapine 5 Mg Tablet PO 5 mg Q4H PRN Administration Psychosis,blake Olanzapine 25 mg 05/12/20 21:00 05/17/20 20:19 Olanzapine 10 Mg Tablet PO 25 mg BEDTIME DEVONTE Administration Omeprazole 20 mg 05/04/20 17:20 05/18/20 08:38 Omeprazole 20 Mg Capsule. PO 20 mg DAILY@0630 DEVONTE Administration Trazodone HCl 100 mg 05/01/20 21:00 05/17/20 20:19 Trazodone Hcl 100 Mg Tablet PO 100 mg BEDTIME DEVONTE Administration Vitamin D 25 mcg 04/22/20 09:00 05/18/20 08:39 Cholecalciferol (Vitamin D3) 25 Mcg Tablet PO 25 mcg DAILY DEVONTE Administration Allergies Allergies Allergy/AdvReac Type Severity Reaction Status Date / Time haloperidol [From HALDOL] Allergy Unknown UNKNOWN Unverified 12/03/19 15:27 Helidac Allergy Unknown seizure Uncoded 07/28/19 00:00 and stiffness Assessment & Plan Assessment & Plan (1) Schizoaffective disorder, bipolar type: Status: Acute Code(s): F25.0 - Schizoaffective disorder, bipolar type Assessment and Plan: -Continue current plan. -Suggest higher level of care when planning discharge instead of transfer to independent living. Greater than 50% of the session was spent on counseling and/or coordination of care Reason for contiued inpatient stay Substantial Risk for: harm to self, harm to others, inability to function, rapid decompensation and med/psych decompensation
[2020-05-18 18:00] VITALS: BP 113/75; PULSE 91; TEMP 36.2; O2SAT 94
[2020-05-18] MEDS: Divalproex Sodium ER 500 MG TAB.ER.24H 1000 MG PO (20:41)
[2020-05-18] MEDS: traZODone HCL 100 MG TABLET PO (20:44)
[2020-05-18] MEDS: OLANZapine 10 MG TABLET 25 MG PO (20:44)
[2020-05-18 20:45] VITALS: BP 113/75; PULSE 91
[2020-05-18] MEDS: Metoprolol Tartrate 50 MG TABLET 25 MG PO (20:45)
[2020-05-19 06:00] VITALS: BP 106/65; PULSE 75; TEMP 36.1
[2020-05-19 07:00] VITALS: BMI 29.8
[2020-05-19 08:23] VITALS: BP 106/65; PULSE 75
[2020-05-19] MEDS: Metoprolol Tartrate 50 MG TABLET 25 MG PO ×2 (08:23→20:53)
[2020-05-19] MEDS: Divalproex Sodium 250 MG TABLET.DR PO (08:23)
[2020-05-19] MEDS: Docusate Sodium 100 MG CAPSULE PO ×2 (08:23→20:52)
[2020-05-19] MEDS: chlorproMAZINE HCl 25 MG TABLET PO ×2 (08:25→20:52)
[2020-05-19] MEDS: Cholecalciferol (Vitamin D3) 25 MCG TABLET PO (08:25)
[2020-05-19] MEDS: Omeprazole 20 MG CAPSULE.DR PO (08:25)
[2020-05-19] MEDS: Finasteride 5 MG TABLET PO (08:25)
[2020-05-19] MEDS: Mineral Oil/Petrolatum,White 106 GM Tube 1 APPL TOPICAL ×2 (11:40→20:51)
--- NOTE | 2020-05-19 13:10 | P.PNPSI_ITS ---
Subjective Subjective Date of Service: 05/19/20 Reason For Visit: Bipolar disorder Subjective Notes: Conditional Voluntary (HCP activated) Interim History: Quiet, positive, confused-speech clear at times, difficult to understand at times-observant of his environment and easily engaged. Reports depressive symptoms and offers a reason of winter . Medication Compliance: Yes Side effects from medications: No Attending Groups: No Review of Systems Review of Systems Yes all other systems are reviewed and are negative (denies medical issues today.) Reports behavioral changes and Reports confusion Psychiatric: Reports behavioral changes, Reports confusion, Reports depression, Reports difficulty concentrating and Reports auditory hallucinations Mental Status Exam Mental Status Exam Patient Appearance: Disheveled Patient Orientation: Person Level of Consciousness: Awake and Alert Patient Behavior: Talkative, Cooperative, Passive, Wandering, Anxious, Distractible, Good Eye Contact and Impulsive Mood Description: Calm, Happy, Withdrawn, Appropriate, Relaxed and Apprehensive Affect Description: Flat Patient Cognition Impaired: Yes Ability to Follow Directions: Fair Speech Pattern: Clear, Appropriate, Garbled, Spontaneous Speech, Rambling, Soft- Spoken, Mumbled and Rapid Memory Description: Remote Impaired, Immediate Impaired, [employer] Impaired, Episodic Impaired and Recent Impaired Hallucinations: Auditory Thought Process: Illogical and Distracted Thought Content: positive for Flight [place], positive for [place], positive for [employer] and positive for Tangential Judgement: Poor Diagnostics Vital Signs (24Hr): Vital Signs - 24 hr 05/18/20 18:00 05/18/20 20:45 05/19/20 06:00 Temperature 97.1 F 96.9 F Pulse Rate 91 91 75 Blood Pressure 113/75 113/75 106/65 Pulse Oximetry 94 05/19/20 08:23 Temperature Pulse Rate 75 Blood Pressure 106/65 Pulse Oximetry Body Mass Index 0.0 Labs Results: 05/18/20 10:03 05/18/20 10:04 Labs: Laboratory Results - last 48 hr 05/18/20 05/18/20 10:03 10:04 WBC 6.0 RBC 3.94 L Hgb 12.0 L Hct 37.9 L MCV 96.2 MCH 30.5 MCHC 31.7 RDW 14.0 Plt Count 204 MPV 9.3 L Immature Gran % (Auto) 0.2 Neut % (Auto) 55.2 Lymph % (Auto) 29.9 [place] % (Auto) 9.5 Eos % (Auto) 4.5 H Baso % (Auto) 0.7 Lymph # (Auto) 1.8 [place] # (Auto) 0.6 Eos # (Auto) 0.3 Baso # (Auto) 0.0 Abs Immat Gran (auto) 0.01 Absolute Neuts (auto) 3.3 Absolute Nucleated RBC 0.000 Nucleated RBC % (auto) 0.0 Sodium 138 Potassium 4.4 Chloride 105 Carbon Dioxide 27 Anion Gap 10 L BUN 13 Creatinine 0.99 Estim Creat Clear Calc TNP Estimated GFR > 60 Random Glucose 143 H Calcium 9.0 D Iron 61 TIBC 332 % Saturation 18 Unsat Iron Binding 271 Lactate Dehydrogenase 180 Imaging Radiology Impressions: ITS Impressions Chest X-Ray 04/17/20 07:27 IMPRESSION: No acute cardiopulmonary findings Head CT 04/17/20 07:27 IMPRESSION: No acute intracranial findings. Sinus disease as described. Modified Barium Swallow 05/04/20 15:36 IMPRESSION: No significant abnormality identified on modified barium swallow. Please refer to speech pathology report for details. Chest X-Ray 05/05/20 19:15 IMPRESSION: No evidence for acute disease. Medications Medications Current Medications Generic Name Dose Route Start Last Admin Trade Name Freq PRN Reason Stop Dose Admin Acetaminophen 650 mg 04/18/20 18:48 05/17/20 11:12 Acetaminophen 325 Mg Tablet PO 650 mg Q6H PRN Administration Headache/Pain Mild Scale (1-3) Al Hydroxide/Mg Hydroxide 30 ml 04/18/20 18:48 Magnesium Hydrox/Alum Hydrox 30 Ml Oral.Susp PO Q6H PRN Heartburn/Nausea Chlorpromazine HCl 25 mg 05/09/20 21:00 05/19/20 08:25 Chlorpromazine Hcl 25 Mg Tablet PO 25 mg BID DEVONTE Administration Divalproex Sodium 1,000 mg 04/17/20 21:00 05/18/20 20:41 Divalproex Sodium Er 500 Mg Tab.Er.24h PO 1,000 mg BEDTIME DEVONTE Administration Divalproex Sodium 250 mg 04/22/20 09:00 05/19/20 08:23 Divalproex Sodium 250 Mg Tablet.Dr PO 250 mg DAILY DEVONTE Administration Docusate Sodium 100 mg 04/29/20 21:00 05/19/20 08:23 Docusate Sodium 100 Mg Capsule PO 100 mg BID DEVONTE Administration Finasteride 5 mg 04/17/20 14:00 05/19/20 08:25 Finasteride 5 Mg Tablet PO 5 mg DAILY DEVONTE Administration Lorazepam 1 mg 05/12/20 16:51 05/15/20 08:21 Lorazepam 1 Mg Tablet PO 1 mg Q4H PRN Administration anxiety, agitation Magnesium Hydroxide 30 ml 04/18/20 18:48 05/17/20 10:04 Milk Of Magnesia 30 Ml Oral.Susp PO 30 ml DAILY PRN Administration Constipation Metoprolol Tartrate 25 mg 04/17/20 14:00 05/19/20 08:23 Metoprolol Tartrate 50 Mg Tablet PO 25 mg BID DEVONTE Administration Protocol Multi-Ingred Cream/Lotion/Oil/Oint 1 appl 05/15/20 10:40 05/19/20 11:40 Mineral Oil/Petrolatum,White 106 Gm Tube TOPICAL 1 appl BID DEVONTE Administration Olanzapine 5 mg 04/19/20 07:01 05/15/20 08:21 Olanzapine 5 Mg Tablet PO 5 mg Q4H PRN Administration Psychosis,blake Olanzapine 25 mg 05/12/20 21:00 05/18/20 20:44 Olanzapine 10 Mg Tablet PO 25 mg BEDTIME DEVONTE Administration Omeprazole 20 mg 05/04/20 17:20 05/19/20 08:25 Omeprazole 20 Mg Capsule. PO 20 mg DAILY@0630 DEVONTE Administration Trazodone HCl 100 mg 05/01/20 21:00 05/18/20 20:44 Trazodone Hcl 100 Mg Tablet PO 100 mg BEDTIME DEVONTE Administration Vitamin D 25 mcg 04/22/20 09:00 05/19/20 08:25 Cholecalciferol (Vitamin D3) 25 Mcg Tablet PO 25 mcg DAILY DEVONTE Administration Allergies Allergies Allergy/AdvReac Type Severity Reaction Status Date / Time haloperidol [From HALDOL] Allergy Unknown UNKNOWN Unverified 12/03/19 15:27 Helidac Allergy Unknown seizure Uncoded 07/28/19 00:00 and stiffness Assessment & Plan Assessment & Plan (1) Schizoaffective disorder, bipolar type: Status: Acute Code(s): F25.0 - Schizoaffective disorder, bipolar type Assessment and Plan: -Increase Olanzapine to 30 mg HS Greater than 50% of the session was spent on counseling and/or coordination of care Informed Consent: does not understand Reason for contiued inpatient stay Substantial Risk for: harm to self, harm to others, inability to function and med/psych decompensation
[2020-05-19 17:23] VITALS: BP 102/67; PULSE 75; RESP 18; TEMP 36.3; O2SAT 98
[2020-05-19] MEDS: Divalproex Sodium ER 500 MG TAB.ER.24H 1000 MG PO (20:51)
[2020-05-19] MEDS: traZODone HCL 100 MG TABLET PO (20:52)
[2020-05-19] MEDS: OLANZapine 10 MG TABLET 30 MG PO (20:52)
[2020-05-19 20:53] VITALS: BP 111/73; PULSE 87
[2020-05-20 06:00] VITALS: BP 116/64; PULSE 84; RESP 14; TEMP 36.3; O2SAT 97
[2020-05-20] MEDS: Omeprazole 20 MG CAPSULE.DR PO (07:04)
[2020-05-20] MEDS: Metoprolol Tartrate 50 MG TABLET 25 MG PO ×2 (08:09→20:01)
[2020-05-20] MEDS: Mineral Oil/Petrolatum,White 106 GM Tube 1 APPL TOPICAL ×2 (08:09→20:04)
[2020-05-20] MEDS: Divalproex Sodium 250 MG TABLET.DR PO (08:10)
[2020-05-20] MEDS: Docusate Sodium 100 MG CAPSULE PO ×2 (08:10→20:03)
[2020-05-20] MEDS: Cholecalciferol (Vitamin D3) 25 MCG TABLET PO (08:10)
[2020-05-20] MEDS: chlorproMAZINE HCl 25 MG TABLET PO ×2 (08:10→20:04)
[2020-05-20] MEDS: Finasteride 5 MG TABLET PO (08:10)
[2020-05-20] MEDS: LORazepam 1 MG TABLET PO (08:10)
[2020-05-20 10:34] LABS: Estimated Average Glucose 120 mg/dL; Hemoglobin A1c % 5.8 %
--- NOTE | 2020-05-20 14:01 | HO.PSYCHPN ---
Subjective Subjective Date of Service: 05/20/20 Reason For Visit: Bipolar disorder Subjective Notes: Conditional Voluntary (HCP activated.) Interim History: Visable, interactive, calm with disorganization. Reports depression. Medication Compliance: Yes Side effects from medications: No Attending Groups: No Review of Systems Review of Systems Yes all other systems are reviewed and are negative (denies) Mental Status Exam Mental Status Exam Patient Appearance: Disheveled and Appropriate Patient Orientation: Person Level of Consciousness: Awake and Alert Patient Behavior: Cooperative, Wandering, Distractible and Good Eye Contact Mood Description: Calm, Happy and Cheerful Affect Description: Calm, Happy, Relaxed and Anxious Patient Cognition Impaired: Yes Ability to Follow Directions: Good Speech Pattern: Garbled, Spontaneous Speech, Rambling, Soft-Spoken and Mumbled Memory Description: Episodic Impaired Hallucinations: Auditory Thought Process: Racing and Distracted Thought Content: positive for Flight of Ideas, positive for Racing, positive for [place] and positive for Tangential Depressive Symptoms: Difficulty Sleeping and Difficulty Concentrating Judgement: Poor Diagnostics Vital Signs (24Hr): Vital Signs - 24 hr 05/19/20 17:23 05/19/20 20:53 05/20/20 06:00 Temperature 97.4 F 97.4 F Pulse Rate 75 87 84 Respiratory Rate 18 14 Blood Pressure 102/67 111/73 116/64 Pulse Oximetry 98 97 Body Mass Index 29.8 Labs Results: 05/18/20 10:03 05/18/20 10:04 Labs: Laboratory Results - last 48 hr 05/20/20 10:14 Estimat Average Glucose 120 Hemoglobin A1c % 5.8 Imaging Radiology Impressions: ITS Impressions Chest X-Ray 04/17/20 07:27 IMPRESSION: No acute cardiopulmonary findings Head CT 04/17/20 07:27 IMPRESSION: No acute intracranial findings. Sinus disease as described. Modified Barium Swallow 05/04/20 15:36 IMPRESSION: No significant abnormality identified on modified barium swallow. Please refer to speech pathology report for details. Chest X-Ray 05/05/20 19:15 IMPRESSION: No evidence for acute disease. Medications Medications Current Medications Generic Name Dose Route Start Last Admin Trade Name Freq PRN Reason Stop Dose Admin Acetaminophen 650 mg 04/18/20 18:48 05/17/20 11:12 Acetaminophen 325 Mg Tablet PO 650 mg Q6H PRN Administration Headache/Pain Mild Scale (1-3) Al Hydroxide/Mg Hydroxide 30 ml 04/18/20 18:48 Magnesium Hydrox/Alum Hydrox 30 Ml Oral.Susp PO Q6H PRN Heartburn/Nausea Chlorpromazine HCl 25 mg 05/09/20 21:00 05/20/20 08:10 Chlorpromazine Hcl 25 Mg Tablet PO 25 mg BID DEVONTE Administration Divalproex Sodium 1,000 mg 04/17/20 21:00 05/19/20 20:51 Divalproex Sodium Er 500 Mg Tab.Er.24h PO 1,000 mg BEDTIME DEVONTE Administration Divalproex Sodium 250 mg 04/22/20 09:00 05/20/20 08:10 Divalproex Sodium 250 Mg Tablet. PO 250 mg DAILY DEVONTE Administration Docusate Sodium 100 mg 04/29/20 21:00 05/20/20 08:10 Docusate Sodium 100 Mg Capsule PO 100 mg BID DEVONTE Administration Finasteride 5 mg 04/17/20 14:00 05/20/20 08:10 Finasteride 5 Mg Tablet PO 5 mg DAILY DEVONTE Administration Lorazepam 1 mg 05/12/20 16:51 05/20/20 08:10 Lorazepam 1 Mg Tablet PO 1 mg Q4H PRN Administration anxiety, agitation Magnesium Hydroxide 30 ml 04/18/20 18:48 05/17/20 10:04 Milk Of Magnesia 30 Ml Oral.Susp PO 30 ml DAILY PRN Administration Constipation Metoprolol Tartrate 25 mg 04/17/20 14:00 05/20/20 08:09 Metoprolol Tartrate 50 Mg Tablet PO 25 mg BID DEVONTE Administration Protocol Multi-Ingred Cream/Lotion/Oil/Oint 1 appl 05/15/20 10:40 05/20/20 08:09 Mineral Oil/Petrolatum,White 106 Gm Tube TOPICAL 1 appl BID DEVONTE Administration Olanzapine 5 mg 04/19/20 07:01 05/15/20 08:21 Olanzapine 5 Mg Tablet PO 5 mg Q4H PRN Administration Psychosis,blake Olanzapine 30 mg 05/19/20 21:00 05/19/20 20:52 Olanzapine 10 Mg Tablet PO 30 mg BEDTIME DEVONTE Administration Omeprazole 20 mg 05/04/20 17:20 05/20/20 07:04 Omeprazole 20 Mg Capsule. PO 20 mg DAILY@0630 DEVONTE Administration Trazodone HCl 100 mg 05/01/20 21:00 03/04/21 20:52 Trazodone Hcl 100 Mg Tablet PO 100 mg BEDTIME DEVONTE Administration Vitamin D 25 mcg 04/22/20 09:00 05/20/20 08:10 Cholecalciferol (Vitamin D3) 25 Mcg Tablet PO 25 mcg DAILY DEVONTE Administration Allergies Allergies Allergy/AdvReac Type Severity Reaction Status Date / Time haloperidol [From HALDOL] Allergy Unknown UNKNOWN Unverified 12/03/19 15:27 Helidac Allergy Unknown seizure Uncoded 07/28/19 00:00 and stiffness Assessment & Plan Assessment & Plan (1) Schizoaffective disorder, bipolar type: Status: Acute Code(s): F25.0 - Schizoaffective disorder, bipolar type Assessment and Plan: -Remeron 7.5 mg hs to assist with sleep. Greater than 50% of the session was spent on counseling and/or coordination of care Reason for contiued inpatient stay Substantial Risk for: harm to self, harm to others, inability to function, rapid decompensation and med/psych decompensation
[2020-05-20 18:00] VITALS: BP 129/74; PULSE 80; TEMP 36.2
[2020-05-20] MEDS: Milk of Magnesia 30 ML ORAL.SUSP PO (18:28)
[2020-05-20 19:52] VITALS: BP 132/69; PULSE 84
[2020-05-20 20:01] VITALS: BP 132/69; PULSE 84
[2020-05-20] MEDS: Mirtazapine 7.5 MG TABLET PO (20:03)
[2020-05-20] MEDS: OLANZapine 10 MG TABLET 30 MG PO (20:03)
[2020-05-20] MEDS: Divalproex Sodium ER 500 MG TAB.ER.24H 1000 MG PO (20:03)
[2020-05-21 06:00] VITALS: BP 118/66; PULSE 69; RESP 18; TEMP 36.4; O2SAT 97
[2020-05-21 08:53] VITALS: BP 122/68; PULSE 74; RESP 18; TEMP 36.4; O2SAT 96
[2020-05-21] MEDS: Finasteride 5 MG TABLET PO (08:54)
[2020-05-21 08:55] VITALS: BP 122/68; PULSE 74
[2020-05-21] MEDS: Metoprolol Tartrate 50 MG TABLET 25 MG PO ×2 (08:55→20:07)
[2020-05-21] MEDS: Cholecalciferol (Vitamin D3) 25 MCG TABLET PO (08:55)
[2020-05-21] MEDS: Divalproex Sodium 250 MG TABLET.DR PO (08:56)
[2020-05-21] MEDS: Docusate Sodium 100 MG CAPSULE PO (08:56)
[2020-05-21] MEDS: chlorproMAZINE HCl 25 MG TABLET PO ×2 (08:57→20:06)
[2020-05-21] MEDS: Omeprazole 20 MG CAPSULE.DR PO (08:57)
[2020-05-21] MEDS: Mineral Oil/Petrolatum,White 106 GM Tube 1 APPL TOPICAL ×2 (14:47→20:15)
[2020-05-21 18:00] VITALS: BP 110/66; PULSE 73; TEMP 35.9
[2020-05-21 19:50] VITALS: BP 118/61; PULSE 84
[2020-05-21] MEDS: Mirtazapine 7.5 MG TABLET PO (20:06)
[2020-05-21] MEDS: OLANZapine 10 MG TABLET 30 MG PO (20:06)
[2020-05-21] MEDS: Divalproex Sodium ER 500 MG TAB.ER.24H 1000 MG PO (20:06)
[2020-05-21 20:07] VITALS: BP 118/61; PULSE 84
--- NOTE | 2020-05-21 21:56 | HO.PSYCHPN ---
Subjective Subjective Date of Service: 05/22/20 Reason For Visit: Bipolar disorder Interim History: pt gradually calmer more verbal logical Medication Compliance: Yes Mental Status Exam Mental Status Exam Patient Appearance: Disheveled and Appropriate Patient Orientation: Person Level of Consciousness: Awake and Alert Patient Behavior: Cooperative, Wandering, Distractible and Good Eye Contact Mood Description: Calm, Happy and Cheerful Affect Description: Calm, Happy, Relaxed and Anxious Patient Cognition Impaired: Yes Ability to Follow Directions: Good Speech Pattern: Garbled, Spontaneous Speech, Rambling, Soft-Spoken and Mumbled Memory Description: Episodic Impaired Hallucinations: Auditory Thought Process: Racing and Distracted Thought Content: positive for Flight of Ideas, positive for Racing, positive for [employer] and positive for Tangential Depressive Symptoms: Difficulty Sleeping and Difficulty Concentrating Judgement: Poor Diagnostics Vital Signs (24Hr): Vital Signs - 24 hr 05/21/20 06:00 05/21/20 08:53 05/21/20 08:55 Temperature 97.6 F 97.6 F Pulse Rate 69 74 74 Respiratory Rate 18 18 Blood Pressure 118/66 122/68 122/68 Pulse Oximetry 97 96 05/21/20 18:00 05/21/20 19:50 05/21/20 20:07 Temperature 96.7 F L Pulse Rate 73 84 84 Respiratory Rate Blood Pressure 110/66 118/61 118/61 Pulse Oximetry Body Mass Index 29.8 Labs Results: 05/18/20 10:03 05/18/20 10:04 Labs: Laboratory Results - last 48 hr 05/20/20 10:14 Estimat Average Glucose 120 Hemoglobin A1c % 5.8 Imaging Radiology Impressions: ITS Impressions Chest X-Ray 04/17/20 07:27 IMPRESSION: No acute cardiopulmonary findings Head CT 04/17/20 07:27 IMPRESSION: No acute intracranial findings. Sinus disease as described. Modified Barium Swallow 05/04/20 15:36 IMPRESSION: No significant abnormality identified on modified barium swallow. Please refer to speech pathology report for details. Chest X-Ray 05/05/20 19:15 IMPRESSION: No evidence for acute disease. Medications Medications Current Medications Generic Name Dose Route Start Last Admin Trade Name Freq PRN Reason Stop Dose Admin Acetaminophen 650 mg 04/18/20 18:48 05/17/20 11:12 Acetaminophen 325 Mg Tablet PO 650 mg Q6H PRN Administration Headache/Pain Mild Scale (1-3) Al Hydroxide/Mg Hydroxide 30 ml 04/18/20 18:48 Magnesium Hydrox/Alum Hydrox 30 Ml Oral.Susp PO Q6H PRN Heartburn/Nausea Chlorpromazine HCl 25 mg 05/09/20 21:00 05/21/20 20:06 Chlorpromazine Hcl 25 Mg Tablet PO 25 mg BID DEVONTE Administration Divalproex Sodium 1,000 mg 04/17/20 21:00 05/21/20 20:06 Divalproex Sodium Er 500 Mg Tab.Er.24h PO 1,000 mg BEDTIME DEVONTE Administration Divalproex Sodium 250 mg 04/22/20 09:00 05/21/20 08:56 Divalproex Sodium 250 Mg Tablet.Dr PO 250 mg DAILY DEVONTE Administration Docusate Sodium 100 mg 04/29/20 21:00 05/21/20 20:15 Docusate Sodium 100 Mg Capsule PO Not Given BID DEVONTE Finasteride 5 mg 04/17/20 14:00 05/21/20 08:54 Finasteride 5 Mg Tablet PO 5 mg DAILY DEVONTE Administration Lorazepam 1 mg 05/12/20 16:51 05/20/20 08:10 Lorazepam 1 Mg Tablet PO 1 mg Q4H PRN Administration anxiety, agitation Magnesium Hydroxide 30 ml 04/18/20 18:48 05/20/20 18:28 Milk Of Magnesia 30 Ml Oral.Susp PO 30 ml DAILY PRN Administration Constipation Metoprolol Tartrate 25 mg 04/17/20 14:00 05/21/20 20:07 Metoprolol Tartrate 50 Mg Tablet PO 25 mg BID DEVONTE Administration Protocol Mirtazapine 7.5 mg 05/20/20 21:00 05/21/20 20:06 Mirtazapine 7.5 Mg Tablet PO 7.5 mg BEDTIME DEVONTE Administration Multi-Ingred Cream/Lotion/Oil/Oint 1 appl 05/15/20 10:40 05/21/20 20:15 Mineral Oil/Petrolatum,White 106 Gm Tube TOPICAL 1 appl BID DEVONTE Administration Olanzapine 5 mg 04/19/20 07:01 05/15/20 08:21 Olanzapine 5 Mg Tablet PO 5 mg Q4H PRN Administration Psychosis,blake Olanzapine 30 mg 05/19/20 21:00 05/21/20 20:06 Olanzapine 10 Mg Tablet PO 30 mg BEDTIME DEVONTE Administration Omeprazole 20 mg 05/04/20 17:20 05/21/20 08:57 Omeprazole 20 Mg Capsule. PO 20 mg DAILY@0630 DEVONTE Administration Trazodone HCl 100 mg 05/01/20 21:00 05/19/20 20:52 Trazodone Hcl 100 Mg Tablet PO 100 mg BEDTIME DEVONTE Administration Vitamin D 25 mcg 04/22/20 09:00 05/21/20 08:55 Cholecalciferol (Vitamin D3) 25 Mcg Tablet PO 25 mcg DAILY DEVONTE Administration Allergies Allergies Allergy/AdvReac Type Severity Reaction Status Date / Time haloperidol [From HALDOL] Allergy Unknown UNKNOWN Unverified 12/03/19 15:27 Helidac Allergy Unknown seizure Uncoded 07/28/19 00:00 and stiffness Assessment & Plan Assessment & Plan (1) Schizoaffective disorder, bipolar type: Status: Acute Code(s): F25.0 - Schizoaffective disorder, bipolar type Assessment and Plan: cont tx plan pt stabilizing (2) BPH w urinary obs/LUTS: Status: Acute Code(s): N40.1 - Benign prostatic hyperplasia with lower urinary tract symptoms; N13.8 - Other obstructive and reflux uropathy Greater than 50% of the session was spent on counseling and/or coordination of care Reason for contiued inpatient stay Substantial Risk for: inability to function and rapid decompensation
[2020-05-22] MEDS: LORazepam 1 MG TABLET PO (03:36)
[2020-05-22 06:25] VITALS: BP 122/73; PULSE 68; RESP 16; TEMP 36.9; O2SAT 99
[2020-05-22] MEDS: Omeprazole 20 MG CAPSULE.DR PO (06:34)
[2020-05-22] MEDS: Docusate Sodium 100 MG CAPSULE PO (08:22)
[2020-05-22] MEDS: Divalproex Sodium 250 MG TABLET.DR PO (08:22)
[2020-05-22] MEDS: chlorproMAZINE HCl 25 MG TABLET PO ×2 (08:23→20:21)
[2020-05-22] MEDS: Finasteride 5 MG TABLET PO (08:23)
[2020-05-22] MEDS: Cholecalciferol (Vitamin D3) 25 MCG TABLET PO (08:23)
[2020-05-22 08:26] VITALS: BP 122/77; PULSE 70
[2020-05-22] MEDS: Metoprolol Tartrate 50 MG TABLET 25 MG PO ×2 (08:26→20:21)
[2020-05-22 08:33] VITALS: BP 122/77; PULSE 70; RESP 18; TEMP 36.3; O2SAT 99
[2020-05-22] MEDS: Mineral Oil/Petrolatum,White 106 GM Tube 1 APPL TOPICAL ×2 (09:22→20:54)
[2020-05-22 18:00] VITALS: BP 129/69; PULSE 74; RESP 18; TEMP 36.3
[2020-05-22 20:21] VITALS: BP 129/69; PULSE 74
[2020-05-22] MEDS: Mirtazapine 7.5 MG TABLET PO (20:21)
[2020-05-22] MEDS: Divalproex Sodium ER 500 MG TAB.ER.24H 1000 MG PO (20:21)
[2020-05-22] MEDS: OLANZapine 10 MG TABLET 30 MG PO (20:21)
--- NOTE | 2020-05-22 22:12 | HO.PSYCHPN ---
Subjective Subjective Date of Service: 05/22/20 Reason For Visit: Bipolar disorder Interim History: Patient has been low-campos cooperative agitated appears gradually to be clearing Medication Compliance: Yes Mental Status Exam Mental Status Exam Patient Appearance: Disheveled and Appropriate Patient Orientation: Person Level of Consciousness: Awake and Alert Patient Behavior: Cooperative, Wandering, Distractible and Good Eye Contact Mood Description: Calm, Happy and Cheerful Affect Description: Calm, Happy, Relaxed and Anxious Patient Cognition Impaired: Yes Ability to Follow Directions: Good Speech Pattern: Garbled, Spontaneous Speech, Rambling, Soft-Spoken and Mumbled Memory Description: Episodic Impaired Hallucinations: Auditory Thought Process: Distracted Thought Content: positive for [place] and positive for Tangential Depressive Symptoms: Difficulty Sleeping and Difficulty Concentrating Judgement: Fair Diagnostics Vital Signs (24Hr): Vital Signs - 24 hr 05/22/20 06:25 05/22/20 08:26 05/22/20 08:33 Temperature 98.4 F 97.4 F Pulse Rate 68 70 70 Respiratory Rate 16 18 Blood Pressure 122/73 122/77 122/77 Pulse Oximetry 99 99 05/22/20 18:00 05/22/20 20:21 Temperature 97.3 F Pulse Rate 74 74 Respiratory Rate 18 Blood Pressure 129/69 129/69 Pulse Oximetry Body Mass Index 29.8 Labs Results: 05/18/20 10:03 05/18/20 10:04 Imaging Radiology Impressions: ITS Impressions Chest X-Ray 04/17/20 07:27 IMPRESSION: No acute cardiopulmonary findings Head CT 04/17/20 07:27 IMPRESSION: No acute intracranial findings. Sinus disease as described. Modified Barium Swallow 05/04/20 15:36 IMPRESSION: No significant abnormality identified on modified barium swallow. Please refer to speech pathology report for details. Chest X-Ray 05/05/20 19:15 IMPRESSION: No evidence for acute disease. Medications Medications Current Medications Generic Name Dose Route Start Last Admin Trade Name Freq PRN Reason Stop Dose Admin Acetaminophen 650 mg 04/18/20 18:48 05/17/20 11:12 Acetaminophen 325 Mg Tablet PO 650 mg Q6H PRN Administration Headache/Pain Mild Scale (1-3) Al Hydroxide/Mg Hydroxide 30 ml 04/18/20 18:48 Magnesium Hydrox/Alum Hydrox 30 Ml Oral.Susp PO Q6H PRN Heartburn/Nausea Chlorpromazine HCl 25 mg 05/09/20 21:00 05/22/20 20:21 Chlorpromazine Hcl 25 Mg Tablet PO 25 mg BID DEVONTE Administration Divalproex Sodium 1,000 mg 04/17/20 21:00 05/22/20 20:21 Divalproex Sodium Er 500 Mg Tab.Er.24h PO 1,000 mg BEDTIME DEVONTE Administration Divalproex Sodium 250 mg 04/22/20 09:00 05/22/20 08:22 Divalproex Sodium 250 Mg Tablet. PO 250 mg DAILY DEVONTE Administration Docusate Sodium 100 mg 04/29/20 21:00 05/22/20 20:33 Docusate Sodium 100 Mg Capsule PO Not Given BID DEVONTE Finasteride 5 mg 04/17/20 14:00 05/22/20 08:23 Finasteride 5 Mg Tablet PO 5 mg DAILY DEVONTE Administration Magnesium Hydroxide 30 ml 04/18/20 18:48 05/20/20 18:28 Milk Of Magnesia 30 Ml Oral.Susp PO 30 ml DAILY PRN Administration Constipation Metoprolol Tartrate 25 mg 04/17/20 14:00 05/22/20 20:21 Metoprolol Tartrate 50 Mg Tablet PO 25 mg BID DEVONTE Administration Protocol Mirtazapine 7.5 mg 05/20/20 21:00 05/22/20 20:21 Mirtazapine 7.5 Mg Tablet PO 7.5 mg BEDTIME DEVONTE Administration Multi-Ingred Cream/Lotion/Oil/Oint 1 appl 05/15/20 10:40 05/22/20 20:54 Mineral Oil/Petrolatum,White 106 Gm Tube TOPICAL 1 appl BID DEVONTE Administration Olanzapine 5 mg 04/19/20 07:01 05/15/20 08:21 Olanzapine 5 Mg Tablet PO 5 mg Q4H PRN Administration Psychosis,blake Olanzapine 30 mg 05/19/20 21:00 05/22/20 20:21 Olanzapine 10 Mg Tablet PO 30 mg BEDTIME DEVONTE Administration Omeprazole 20 mg 05/04/20 17:20 05/22/20 06:34 Omeprazole 20 Mg Capsule. PO 20 mg DAILY@0630 DEVONTE Administration Trazodone HCl 100 mg 05/01/20 21:00 05/19/20 20:52 Trazodone Hcl 100 Mg Tablet PO 100 mg BEDTIME DEVONTE Administration Vitamin D 25 mcg 04/22/20 09:00 05/22/20 08:23 Cholecalciferol (Vitamin D3) 25 Mcg Tablet PO 25 mcg DAILY DEVONTE Administration Allergies Allergies Allergy/AdvReac Type Severity Reaction Status Date / Time haloperidol [From HALDOL] Allergy Unknown UNKNOWN Unverified 12/03/19 15:27 Helidac Allergy Unknown seizure Uncoded 07/28/19 00:00 and stiffness Assessment & Plan Assessment & Plan (1) Schizoaffective disorder, bipolar type: Status: Acute Code(s): F25.0 - Schizoaffective disorder, bipolar type Assessment and Plan: Continue plan of care patient does seem to be gradually improving Greater than 50% of the session was spent on counseling and/or coordination of care Reason for contiued inpatient stay Substantial Risk for: inability to function and rapid decompensation
[2020-05-23 06:20] VITALS: BP 120/86; PULSE 93; RESP 16; TEMP 36.2; O2SAT 96
[2020-05-23 09:33] VITALS: BP 107/74; PULSE 97
[2020-05-23 09:39] VITALS: BP 107/74; PULSE 97
[2020-05-23] MEDS: Cholecalciferol (Vitamin D3) 25 MCG TABLET PO (09:39)
[2020-05-23] MEDS: Metoprolol Tartrate 50 MG TABLET 25 MG PO ×2 (09:39→21:32)
[2020-05-23] MEDS: Finasteride 5 MG TABLET PO (09:40)
[2020-05-23] MEDS: Divalproex Sodium 250 MG TABLET.DR PO (09:40)
[2020-05-23] MEDS: Omeprazole 20 MG CAPSULE.DR PO (09:40)
[2020-05-23] MEDS: Docusate Sodium 100 MG CAPSULE PO ×2 (09:40→21:32)
[2020-05-23] MEDS: chlorproMAZINE HCl 25 MG TABLET PO ×2 (09:40→21:32)
--- NOTE | 2020-05-23 09:55 | PM.EVENT ---
Labs reviewed. Hemoglobin is at his baseline, no hematinic deficiencies. No further hematological intervention necessary at this time.
[2020-05-23] MEDS: Mineral Oil/Petrolatum,White 106 GM Tube 1 APPL TOPICAL ×2 (11:29→21:36)
--- NOTE | 2020-05-23 14:47 | P.PNPSI_ITS ---
Subjective Subjective Date of Service: 05/23/20 Reason For Visit: Bipolar disorder Subjective Notes: Conditional Voluntary (HCP activated) Interim History: Approaching TW several times today, discussing his concerns about return to his previous living situation as he reports peers are drinking, wild, crazy, and scarey . Asks that we get his belongings and find him another place to live, like here, with everyone who are friends. Medication Compliance: Yes Side effects from medications: No Attending Groups: No Review of Systems Reports behavioral changes and Reports confusion Psychiatric: Reports behavioral changes, Reports confusion and Reports difficulty concentrating Mental Status Exam Mental Status Exam Patient Appearance: Disheveled Patient Orientation: Person Level of Consciousness: Awake Patient Behavior: Appropriate, Talkative, Anxious, Fearful, Distractible and Good Eye Contact Mood Description: Happy, Withdrawn, Relaxed, Cheerful and Apprehensive Affect Description: Constricted Patient Cognition Impaired: Yes Ability to Follow Directions: Good Speech Pattern: Garbled, Spontaneous Speech, Rambling and Soft-Spoken Memory Description: Remote Impaired and Episodic Impaired Hallucinations: None Delusions: Not Present Thought Process: Distracted Thought Content: positive for [place], positive for Circumstantial and positive for Tangential Abnormal Motor Activity Signs and Symptoms: Restlessness Judgement: Fair Diagnostics Vital Signs (24Hr): Vital Signs - 24 hr 05/22/20 18:00 05/22/20 20:21 05/23/20 06:20 Temperature 97.3 F 97.1 F Pulse Rate 74 74 93 Respiratory Rate 18 16 Blood Pressure 129/69 129/69 120/86 Pulse Oximetry 96 05/23/20 09:33 05/23/20 09:39 Temperature Pulse Rate 97 97 Respiratory Rate Blood Pressure 107/74 107/74 Pulse Oximetry Body Mass Index 29.8 Labs Results: 05/18/20 10:03 05/18/20 10:04 Imaging Radiology Impressions: ITS Impressions Chest X-Ray 04/17/20 07:27 IMPRESSION: No acute cardiopulmonary findings Head CT 04/17/20 07:27 IMPRESSION: No acute intracranial findings. Sinus disease as described. Modified Barium Swallow 05/04/20 15:36 IMPRESSION: No significant abnormality identified on modified barium swallow. Please refer to speech pathology report for details. Chest X-Ray 05/05/20 19:15 IMPRESSION: No evidence for acute disease. Medications Medications Current Medications Generic Name Dose Route Start Last Admin Trade Name Freq PRN Reason Stop Dose Admin Acetaminophen 650 mg 04/18/20 18:48 05/17/20 11:12 Acetaminophen 325 Mg Tablet PO 650 mg Q6H PRN Administration Headache/Pain Mild Scale (1-3) Al Hydroxide/Mg Hydroxide 30 ml 04/18/20 18:48 Magnesium Hydrox/Alum Hydrox 30 Ml Oral.Susp PO Q6H PRN Heartburn/Nausea Chlorpromazine HCl 25 mg 05/09/20 21:00 05/23/20 09:40 Chlorpromazine Hcl 25 Mg Tablet PO 25 mg BID DEVONTE Administration Divalproex Sodium 1,000 mg 04/17/20 21:00 05/22/20 20:21 Divalproex Sodium Er 500 Mg Tab.Er.24h PO 1,000 mg BEDTIME DEVONTE Administration Divalproex Sodium 250 mg 04/22/20 09:00 05/23/20 09:40 Divalproex Sodium 250 Mg Tablet.Dr PO 250 mg DAILY DEVONTE Administration Docusate Sodium 100 mg 04/29/20 21:00 05/23/20 09:40 Docusate Sodium 100 Mg Capsule PO 100 mg BID DEVONTE Administration Finasteride 5 mg 04/17/20 14:00 05/23/20 09:40 Finasteride 5 Mg Tablet PO 5 mg DAILY DEVONTE Administration Magnesium Hydroxide 30 ml 04/18/20 18:48 05/20/20 18:28 Milk Of Magnesia 30 Ml Oral.Susp PO 30 ml DAILY PRN Administration Constipation Metoprolol Tartrate 25 mg 04/17/20 14:00 05/23/20 09:39 Metoprolol Tartrate 50 Mg Tablet PO 25 mg BID DEVONTE Administration Protocol Mirtazapine 7.5 mg 05/20/20 21:00 05/22/20 20:21 Mirtazapine 7.5 Mg Tablet PO 7.5 mg BEDTIME DEVONTE Administration Multi-Ingred Cream/Lotion/Oil/Oint 1 appl 05/15/20 10:40 05/23/20 11:29 Mineral Oil/Petrolatum,White 106 Gm Tube TOPICAL 1 appl BID DEVONTE Administration Olanzapine 5 mg 04/19/20 07:01 05/15/20 08:21 Olanzapine 5 Mg Tablet PO 5 mg Q4H PRN Administration Psychosis,blake Olanzapine 30 mg 05/19/20 21:00 05/22/20 20:21 Olanzapine 10 Mg Tablet PO 30 mg BEDTIME DEVONTE Administration Omeprazole 20 mg 05/04/20 17:20 05/23/20 09:40 Omeprazole 20 Mg Capsule. PO 20 mg DAILY@0630 DEVONTE Administration Trazodone HCl 100 mg 05/01/20 21:00 05/19/20 20:52 Trazodone Hcl 100 Mg Tablet PO 100 mg BEDTIME DEVONTE Administration Vitamin D 25 mcg 04/22/20 09:00 05/23/20 09:39 Cholecalciferol (Vitamin D3) 25 Mcg Tablet PO 25 mcg DAILY DEVONTE Administration Allergies Allergies Allergy/AdvReac Type Severity Reaction Status Date / Time haloperidol [From HALDOL] Allergy Unknown UNKNOWN Unverified 12/03/19 15:27 Helidac Allergy Unknown seizure Uncoded 07/28/19 00:00 and stiffness Assessment & Plan Assessment & Plan (1) Schizoaffective disorder, bipolar type: Status: Acute Code(s): F25.0 - Schizoaffective disorder, bipolar type Greater than 50% of the session was spent on counseling and/or coordination of care Reason for contiued inpatient stay Substantial Risk for: harm to self, harm to others, inability to function and rapid decompensation
[2020-05-23 21:20] VITALS: BP 139/80; PULSE 91; TEMP 37.2
[2020-05-23 21:32] VITALS: BP 139/80; PULSE 91
[2020-05-23] MEDS: Mirtazapine 7.5 MG TABLET PO (21:32)
[2020-05-23] MEDS: OLANZapine 10 MG TABLET 30 MG PO (21:34)
[2020-05-23] MEDS: Divalproex Sodium ER 500 MG TAB.ER.24H 1000 MG PO (21:34)
[2020-05-24 06:20] VITALS: BP 100/53; PULSE 68; RESP 16; TEMP 36.2; O2SAT 100
[2020-05-24 07:59] VITALS: BP 138/90; PULSE 75
[2020-05-24 08:05] VITALS: BP 138/90; PULSE 75
[2020-05-24] MEDS: chlorproMAZINE HCl 25 MG TABLET PO ×2 (08:05→20:00)
[2020-05-24] MEDS: Metoprolol Tartrate 50 MG TABLET 25 MG PO ×2 (08:05→20:00)
[2020-05-24] MEDS: Cholecalciferol (Vitamin D3) 25 MCG TABLET PO (08:05)
[2020-05-24] MEDS: Finasteride 5 MG TABLET PO (08:05)
[2020-05-24] MEDS: Omeprazole 20 MG CAPSULE.DR PO (08:05)
[2020-05-24] MEDS: Divalproex Sodium 250 MG TABLET.DR PO (08:05)
[2020-05-24] MEDS: Mineral Oil/Petrolatum,White 106 GM Tube 1 APPL TOPICAL ×2 (08:06→21:05)
[2020-05-24 17:55] VITALS: BP 110/72; PULSE 74; RESP 16; TEMP 36.4; O2SAT 95
--- NOTE | 2020-05-24 18:32 | P.PNPSI_ITS ---
Subjective Subjective Date of Service: 05/24/20 Reason For Visit: Bipolar disorder Subjective Notes: Conditional Voluntary (hcp activated) Interim History: Meeting with OP team today and Anna GRAJEDA. Team believes pt is far from baseline with disorganization of thought content and garbled speech. Consulted with Dr. Mckay-will ask Dr. Colbert to see pt as he has an extensive knowledge of his care. Pt not clearing on high dose medications but overall is gradually improved with some days clearer than others. Approached creative writer this a.m. requesting we rent him an apartment at [facility] on [address] He asked if we could drive there today. Consistently states he does not want to return to an independent apartment and OP team concurs. Medication Compliance: Yes Side effects from medications: No Attending Groups: No Review of Systems Reports confusion Psychiatric: Reports abnormal sleep pattern, Reports confusion, Reports difficulty concentrating and Reports hallucinations Mental Status Exam Mental Status Exam Patient Appearance: Appropriate Patient Orientation: Person Level of Consciousness: Awake and Alert Patient Behavior: Talkative, Cooperative, Wandering, Distractible and Good Eye Contact Mood Description: Calm, Happy, Withdrawn, Relaxed, Cheerful, Flat and Apprehensive Affect Description: Flat Patient Cognition Impaired: Yes Ability to Follow Directions: Good Speech Pattern: Difficulty Finding Words, Garbled, Spontaneous Speech, Coherent, Rambling, Soft-Spoken, Mumbled and Poor Articulation Memory Description: Remote Impaired, Immediate Impaired, Episodic Impaired and Recent Impaired Hallucinations: None Delusions: Present Thought Process: Disoriented, Illogical and Distracted Thought Content: positive for Flight of Ideas, positive for Loose Associations, positive for Tangential and positive for Disorganized Depressive Symptoms: Insomnia and Difficulty Sleeping Judgement: Poor Diagnostics Vital Signs (24Hr): Vital Signs - 24 hr 05/23/20 21:20 05/23/20 21:32 05/24/20 06:20 Temperature 98.9 F 97.2 F Pulse Rate 91 91 68 Respiratory Rate 16 Blood Pressure 139/80 139/80 100/53 L Pulse Oximetry 100 05/24/20 07:59 05/24/20 08:05 05/24/20 17:55 Temperature 97.6 F Pulse Rate 75 75 74 Respiratory Rate 16 Blood Pressure 138/90 H 138/90 H 110/72 Pulse Oximetry 95 Body Mass Index 29.8 Labs Results: 05/18/20 10:03 05/18/20 10:04 Imaging Radiology Impressions: ITS Impressions Chest X-Ray 04/17/20 07:27 IMPRESSION: No acute cardiopulmonary findings Head CT 04/17/20 07:27 IMPRESSION: No acute intracranial findings. Sinus disease as described. Modified Barium Swallow 05/04/20 15:36 IMPRESSION: No significant abnormality identified on modified barium swallow. Please refer to speech pathology report for details. Chest X-Ray 05/05/20 19:15 IMPRESSION: No evidence for acute disease. Medications Medications Current Medications Generic Name Dose Route Start Last Admin Trade Name Freq PRN Reason Stop Dose Admin Acetaminophen 650 mg 04/18/20 18:48 05/17/20 11:12 Acetaminophen 325 Mg Tablet PO 650 mg Q6H PRN Administration Headache/Pain Mild Scale (1-3) Al Hydroxide/Mg Hydroxide 30 ml 04/18/20 18:48 Magnesium Hydrox/Alum Hydrox 30 Ml Oral.Susp PO Q6H PRN Heartburn/Nausea Chlorpromazine HCl 25 mg 05/09/20 21:00 05/24/20 08:05 Chlorpromazine Hcl 25 Mg Tablet PO 25 mg BID DEVONTE Administration Divalproex Sodium 1,000 mg 04/17/20 21:00 05/23/20 21:34 Divalproex Sodium Er 500 Mg Tab.Er.24h PO 1,000 mg BEDTIME DEVONTE Administration Divalproex Sodium 250 mg 04/22/20 09:00 05/24/20 08:05 Divalproex Sodium 250 Mg Tablet.Dr PO 250 mg DAILY DEVONTE Administration Docusate Sodium 100 mg 04/29/20 21:00 05/24/20 08:08 Docusate Sodium 100 Mg Capsule PO Not Given BID DEVONTE Finasteride 5 mg 04/17/20 14:00 05/24/20 08:05 Finasteride 5 Mg Tablet PO 5 mg DAILY DEVONTE Administration Magnesium Hydroxide 30 ml 04/18/20 18:48 05/20/20 18:28 Milk Of Magnesia 30 Ml Oral.Susp PO 30 ml DAILY PRN Administration Constipation Metoprolol Tartrate 25 mg 04/17/20 14:00 05/24/20 08:05 Metoprolol Tartrate 50 Mg Tablet PO 25 mg BID DEVONTE Administration Protocol Mirtazapine 7.5 mg 05/20/20 21:00 05/23/20 21:32 Mirtazapine 7.5 Mg Tablet PO 7.5 mg BEDTIME DEVONTE Administration Multi-Ingred Cream/Lotion/Oil/Oint 1 appl 05/15/20 10:40 05/24/20 08:06 Mineral Oil/Petrolatum,White 106 Gm Tube TOPICAL 1 appl BID DEVONTE Administration Olanzapine 5 mg 04/19/20 07:01 05/15/20 08:21 Olanzapine 5 Mg Tablet PO 5 mg Q4H PRN Administration Psychosis,blake Olanzapine 30 mg 05/19/20 21:00 05/23/20 21:34 Olanzapine 10 Mg Tablet PO 30 mg BEDTIME DEVONTE Administration Omeprazole 20 mg 05/04/20 17:20 05/24/20 08:05 Omeprazole 20 Mg Capsule. PO 20 mg DAILY@0630 DEVONTE Administration Trazodone HCl 100 mg 05/01/20 21:00 05/19/20 20:52 Trazodone Hcl 100 Mg Tablet PO 100 mg BEDTIME DEVONTE Administration Vitamin D 25 mcg 04/22/20 09:00 05/24/20 08:05 Cholecalciferol (Vitamin D3) 25 Mcg Tablet PO 25 mcg DAILY DEVONTE Administration Allergies Allergies Allergy/AdvReac Type Severity Reaction Status Date / Time haloperidol [From HALDOL] Allergy Unknown UNKNOWN Verified 05/24/20 11:01 Helidac Allergy Unknown seizure Uncoded 07/28/19 00:00 and stiffness Assessment & Plan Assessment & Plan (1) Schizoaffective disorder, bipolar type: Status: Acute Code(s): F25.0 - Schizoaffective disorder, bipolar type Assessment and Plan: Pt experiencing poor sleep. Mirtazpine not helpful. Will discontinue and trial Lorazepam 1 mg HS. Neuro consult Greater than 50% of the session was spent on counseling and/or coordination of care Reason for contiued inpatient stay Substantial Risk for: harm to self, harm to others, inability to function, rapid decompensation and med/psych decompensation
[2020-05-24 19:52] VITALS: BP 119/80; PULSE 91
[2020-05-24 20:00] VITALS: BP 119/80; PULSE 91
[2020-05-24] MEDS: LORazepam 1 MG TABLET PO (20:00)
[2020-05-24] MEDS: Divalproex Sodium ER 500 MG TAB.ER.24H 1000 MG PO (20:00)
[2020-05-24] MEDS: OLANZapine 10 MG TABLET 30 MG PO (20:00)
[2020-05-25 06:00] VITALS: BP 113/75; PULSE 97
[2020-05-25 09:13] VITALS: BP 113/75; PULSE 97
[2020-05-25] MEDS: Mineral Oil/Petrolatum,White 106 GM Tube 1 APPL TOPICAL ×2 (09:13→21:20)
[2020-05-25] MEDS: Omeprazole 20 MG CAPSULE.DR PO (09:13)
[2020-05-25] MEDS: Divalproex Sodium 250 MG TABLET.DR PO (09:13)
[2020-05-25] MEDS: Metoprolol Tartrate 50 MG TABLET 25 MG PO ×2 (09:13→21:00)
[2020-05-25] MEDS: Finasteride 5 MG TABLET PO (09:13)
[2020-05-25] MEDS: chlorproMAZINE HCl 25 MG TABLET PO ×3 (09:14→20:59)
[2020-05-25] MEDS: Cholecalciferol (Vitamin D3) 25 MCG TABLET PO (09:14)
--- NOTE | 2020-05-25 11:43 | PM.NEUROCN ---
History of Present Illness Data of Consult Service Date: 05/25/20 Primary Care Provider: Angelo Higginbotham MD 60 years old man who in 2019, with underlying history of she has a for any a, was admitted in intensive care unit at [facility] with severe encephalopathy. 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 His renal mass was embolized and he was treated with IVIG. He did significantly better and later saw me in outpatient when he was back to baseline or with no sign of confusion or encephalopathy. This time he was on psych floor after he was found in a confused state on the street. Detailed history was noted in the chart. There was no evidence of any seizure. Review of Systems Review of Systems: No recent cold or flu-like illness or trauma or seizure-like activity. [facility] Past Medical History Medical History (Updated 05/17/20 @ 14:46 by Veena Hernandez MD) Anemia Chronic headaches Colon cancer Depression Encephalopathy Esophageal stricture GERD (gastroesophageal reflux disease) Hernia HTN (hypertension) Hyperammonemia Paraneoplastic syndrome Renal cell carcinoma Schizoaffective disorder, bipolar type Schizophrenia Seizure Syncope Surgical History Surgical History (Updated 05/17/20 @ 14:37 by Veena Hernandez MD) H/O hemicolectomy Social History Social History Household Members: None Housing: Apartment Do you presently have visiting nurse or other home services: Yes Unable to assess alcohol history related to: Unable to respond and Unknown Alcohol intake: never Smoking Status: Smoker, status unknown Use of substances other than those prescribed or required for medical reasons: Unable to respond Currently Displaying Signs/Symptoms of Drug Intoxication Withdrawal: No Any prior treatment program specific to substance use: No Spiritual Healthcare Practices: unknown Hinduism Healthcare Practices: unknown Cultural Healthcare Practices: unknown Advance Directives: No Advance Directives Information Provided: Yes Do you have thoughts of harming others: None Do you have a plan to hurt others: No Plan Recently lost weight without trying: Unsure service: No Sexual orientation: unable to discuss Meds Allergies Allergy/AdvReac Type Severity Reaction Status Date / Time haloperidol [From HALDOL] Allergy Unknown UNKNOWN Verified 05/24/20 11:01 Helidac Allergy Unknown seizure Uncoded 07/28/19 00:00 and stiffness Active Medications: Current Medications Generic Name Dose Route Start Last Admin Trade Name Freq PRN Reason Stop Dose Admin Acetaminophen 650 mg 04/18/20 18:48 05/17/20 11:12 Acetaminophen 325 Mg Tablet PO 650 mg Q6H PRN Administration Headache/Pain Mild Scale (1-3) Al Hydroxide/Mg Hydroxide 30 ml 04/18/20 18:48 Magnesium Hydrox/Alum Hydrox 30 Ml Oral.Susp PO Q6H PRN Heartburn/Nausea Chlorpromazine HCl 25 mg 05/25/20 15:00 Chlorpromazine Hcl 25 Mg Tablet PO TID DEVONTE Divalproex Sodium 1,000 mg 04/17/20 21:00 05/24/20 20:00 Divalproex Sodium Er 500 Mg Tab.Er.24h PO 1,000 mg BEDTIME DEVONTE Administration Divalproex Sodium 250 mg 04/22/20 09:00 05/25/20 09:13 Divalproex Sodium 250 Mg Tablet.Dr PO 250 mg DAILY DEVONTE Administration Docusate Sodium 100 mg 04/29/20 21:00 05/25/20 09:17 Docusate Sodium 100 Mg Capsule PO Not Given BID DEVONTE Finasteride 5 mg 04/17/20 14:00 05/25/20 09:13 Finasteride 5 Mg Tablet PO 5 mg DAILY DEVONTE Administration Lorazepam 1 mg 05/24/20 21:00 05/24/20 20:00 Lorazepam 1 Mg Tablet PO 1 mg BEDTIME DEVONTE Administration Magnesium Hydroxide 30 ml 04/18/20 18:48 05/20/20 18:28 Milk Of Magnesia 30 Ml Oral.Susp PO 30 ml DAILY PRN Administration Constipation Metoprolol Tartrate 25 mg 04/17/20 14:00 05/25/20 09:13 Metoprolol Tartrate 50 Mg Tablet PO 25 mg BID DEVONTE Administration Protocol Multi-Ingred Cream/Lotion/Oil/Oint 1 appl 05/15/20 10:40 05/25/20 09:13 Mineral Oil/Petrolatum,White 106 Gm Tube TOPICAL 1 appl BID DEVONTE Administration Olanzapine 5 mg 04/19/20 07:01 05/15/20 08:21 Olanzapine 5 Mg Tablet PO 5 mg Q4H PRN Administration Psychosis,blake Olanzapine 30 mg 05/19/20 21:00 05/24/20 20:00 Olanzapine 10 Mg Tablet PO 30 mg BEDTIME DEVONTE Administration Omeprazole 20 mg 05/04/20 17:20 05/25/20 09:13 Omeprazole 20 Mg Capsule. PO 20 mg DAILY@0630 DEVONTE Administration Trazodone HCl 100 mg 05/01/20 21:00 05/19/20 20:52 Trazodone Hcl 100 Mg Tablet PO 100 mg BEDTIME DEVONTE Administration Vitamin D 25 mcg 04/22/20 09:00 05/25/20 09:14 Cholecalciferol (Vitamin D3) 25 Mcg Tablet PO 25 mcg DAILY DEVONTE Administration Home Medications Medication Instructions Recorded Confirmed Last Taken Type olanzapine 10 mg tablet 10 mg PO BEDTIME 01/28/20 04/17/20 Unknown History trazodone 100 mg tablet 100 mg PO BEDTIME PRN 01/28/20 04/17/20 Unknown History divalproex [Depakote ER] 1,000 mg PO BEDTIME 04/17/20 04/17/20 Unknown History metoprolol tartrate [Lopressor] 25 mg PO BID 04/17/20 04/17/20 Unknown History Physical Exam Vital Signs: Vital Signs: Last Vital Signs Temp 97.6 F 05/24/20 17:55 Pulse 97 05/25/20 09:13 Resp 16 05/24/20 17:55 BP 113/75 05/25/20 09:13 Pulse Ox 95 05/24/20 17:55 Body Mass Index 29.8 He was alert and awake with normal spontaneity and fluency of speech. He was following simple commands. Affect was normal. He was smiling and cheerful. Pupils were equal and reactive to light and extraocular muscles are intact. Visual beasley are full to threat. Face was symmetrical. There was no pronator drift. Deep tendon reflexes were trace to 1+ with flexor plantars. Speech was okay. Results Labs CBC & Chem 7: 05/18/20 10:03 05/18/20 10:04 Labs: His noncontrast head CT revealed no acute abnormality. Mild ventricular enlargement was noted. Previously his lumbar puncture in 2018 was normal. Anti neuronal antibody titer was high while NMDA receptor titer was normal. 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 He also had underlying psychotic disorder and at this time seem to be presenting with exacerbates tidwell of his psychiatric illness. My recommendation is continue treating with the psychotropic medications. At this time there was no indication of immunomodulating treatment.
--- NOTE | 2020-05-25 17:59 | P.PNPSI_ITS ---
Subjective Subjective Date of Service: 05/25/20 Reason For Visit: Bipolar disorder Subjective Notes: Conditional Voluntary (HCP activated) Interim History: Chlorpromazine titration as pt is less clear with attempts to assist sleep with mirtazapine, lorazepam. Continues with confusion, wandering, tangential presentation, however is interactive and attempts to connect with team and peers. Met with Dr. Colbert today. Medication Compliance: Yes Side effects from medications: Yes (?lacking clarity with mirtazapine, lorazepam) Attending Groups: No Review of Systems Review of Systems Yes all other systems are reviewed and are negative Reports behavioral changes and Reports confusion Psychiatric: Reports behavioral changes, Reports confusion, Reports auditory bledsoe llucinations and Reports mood swings Mental Status Exam Mental Status Exam Patient Appearance: Disheveled Patient Orientation: Person Level of Consciousness: Alert Patient Behavior: Talkative, Hyperactive, Wandering, Distractible and Good Eye Contact Mood Description: Happy, Relaxed, Anxious and Apprehensive Affect Description: Labile Patient Cognition Impaired: Yes Ability to Follow Directions: Good Speech Pattern: Garbled, Spontaneous Speech, Rambling, Soft-Spoken, Mumbled and Poor Articulation Memory Description: Remote Impaired and Episodic Impaired Hallucinations: Auditory Delusions: Present Thought Process: Disoriented, Racing, Illogical and Distracted Thought Content: positive for Flight of Ideas, positive for Loose Associations and positive for Tangential Judgement: Poor Diagnostics Vital Signs (24Hr): Vital Signs - 24 hr 05/24/20 19:52 05/24/20 20:00 05/25/20 06:00 Pulse Rate 91 91 97 Blood Pressure 119/80 119/80 113/75 05/25/20 09:13 Pulse Rate 97 Blood Pressure 113/75 Body Mass Index 29.8 Labs Results: 05/18/20 10:03 05/18/20 10:04 Imaging Radiology Impressions: ITS Impressions Chest X-Ray 04/17/20 07:27 IMPRESSION: No acute cardiopulmonary findings Head CT 04/17/20 07:27 IMPRESSION: No acute intracranial findings. Sinus disease as described. Modified Barium Swallow 05/04/20 15:36 IMPRESSION: No significant abnormality identified on modified barium swallow. Please refer to speech pathology report for details. Chest X-Ray 05/05/20 19:15 IMPRESSION: No evidence for acute disease. Medications Medications Current Medications Generic Name Dose Route Start Last Admin Trade Name Freq PRN Reason Stop Dose Admin Acetaminophen 650 mg 04/18/20 18:48 05/17/20 11:12 Acetaminophen 325 Mg Tablet PO 650 mg Q6H PRN Administration Headache/Pain Mild Scale (1-3) Al Hydroxide/Mg Hydroxide 30 ml 04/18/20 18:48 Magnesium Hydrox/Alum Hydrox 30 Ml Oral.Susp PO Q6H PRN Heartburn/Nausea Chlorpromazine HCl 25 mg 05/25/20 15:00 05/25/20 14:40 Chlorpromazine Hcl 25 Mg Tablet PO 25 mg TID DEVONTE Administration Divalproex Sodium 1,000 mg 04/17/20 21:00 05/24/20 20:00 Divalproex Sodium Er 500 Mg Tab.Er.24h PO 1,000 mg BEDTIME DEVONTE Administration Divalproex Sodium 250 mg 04/22/20 09:00 05/25/20 09:13 Divalproex Sodium 250 Mg Tablet.Dr PO 250 mg DAILY DEVONTE Administration Docusate Sodium 100 mg 04/29/20 21:00 05/25/20 09:17 Docusate Sodium 100 Mg Capsule PO Not Given BID DEVONTE Finasteride 5 mg 04/17/20 14:00 05/25/20 09:13 Finasteride 5 Mg Tablet PO 5 mg DAILY DEVONTE Administration Lorazepam 1 mg 05/24/20 21:00 05/24/20 20:00 Lorazepam 1 Mg Tablet PO 1 mg BEDTIME DEVONTE Administration Magnesium Hydroxide 30 ml 04/18/20 18:48 05/20/20 18:28 Milk Of Magnesia 30 Ml Oral.Susp PO 30 ml DAILY PRN Administration Constipation Metoprolol Tartrate 25 mg 04/17/20 14:00 05/25/20 09:13 Metoprolol Tartrate 50 Mg Tablet PO 25 mg BID DEVONTE Administration Protocol Multi-Ingred Cream/Lotion/Oil/Oint 1 appl 05/15/20 10:40 05/25/20 09:13 Mineral Oil/Petrolatum,White 106 Gm Tube TOPICAL 1 appl BID DEVONTE Administration Olanzapine 5 mg 04/19/20 07:01 05/15/20 08:21 Olanzapine 5 Mg Tablet PO 5 mg Q4H PRN Administration Psychosis,blake Olanzapine 30 mg 05/19/20 21:00 05/24/20 20:00 Olanzapine 10 Mg Tablet PO 30 mg BEDTIME DEVONTE Administration Omeprazole 20 mg 05/04/20 17:20 05/25/20 09:13 Omeprazole 20 Mg Capsule. PO 20 mg DAILY@0630 DEVONTE Administration Trazodone HCl 100 mg 05/01/20 21:00 05/19/20 20:52 Trazodone Hcl 100 Mg Tablet PO 100 mg BEDTIME DEVONTE Administration Vitamin D 25 mcg 04/22/20 09:00 05/25/20 09:14 Cholecalciferol (Vitamin D3) 25 Mcg Tablet PO 25 mcg DAILY DEVONTE Administration Allergies Allergies Allergy/AdvReac Type Severity Reaction Status Date / Time haloperidol [From HALDOL] Allergy Unknown UNKNOWN Verified 05/24/20 11:01 Helidac Allergy Unknown seizure Uncoded 07/28/19 00:00 and stiffness Assessment & Plan Assessment & Plan (1) Schizoaffective disorder, bipolar type: Status: Acute Code(s): F25.0 - Schizoaffective disorder, bipolar type Greater than 50% of the session was spent on counseling and/or coordination of care Reason for contiued inpatient stay Substantial Risk for: harm to self, inability to function, rapid decompensation and med/psych decompensation
[2020-05-25] MEDS: OLANZapine 10 MG TABLET 30 MG PO (20:59)
[2020-05-25] MEDS: Docusate Sodium 100 MG CAPSULE PO (20:59)
[2020-05-25 21:00] VITALS: BP 116/76; PULSE 91
[2020-05-25] MEDS: Divalproex Sodium ER 500 MG TAB.ER.24H 1000 MG PO (21:00)
[2020-05-25] MEDS: LORazepam 1 MG TABLET PO (21:00)
[2020-05-25 21:02] VITALS: BP 116/76; PULSE 91; TEMP 35.9; O2SAT 95
[2020-05-26 06:20] VITALS: BP 93/70; PULSE 83; RESP 16; TEMP 36.2; O2SAT 98
[2020-05-26 07:00] VITALS: BMI 29.8
[2020-05-26 08:36] VITALS: BP 123/82
[2020-05-26] MEDS: Cholecalciferol (Vitamin D3) 25 MCG TABLET PO (08:40)
[2020-05-26] MEDS: Finasteride 5 MG TABLET PO (08:40)
[2020-05-26] MEDS: Metoprolol Tartrate 50 MG TABLET 25 MG PO ×2 (08:40→20:31)
[2020-05-26] MEDS: chlorproMAZINE HCl 25 MG TABLET PO ×3 (08:41→20:31)
[2020-05-26] MEDS: Divalproex Sodium 250 MG TABLET.DR PO (08:41)
[2020-05-26] MEDS: Omeprazole 20 MG CAPSULE.DR PO (08:41)
[2020-05-26] MEDS: Mineral Oil/Petrolatum,White 106 GM Tube 1 APPL TOPICAL ×2 (09:11→21:22)
--- NOTE | 2020-05-26 16:48 | HO.PSYCHPN ---
Subjective Subjective Date of Service: 05/26/20 Reason For Visit: Bipolar disorder Subjective Notes: Conditional Voluntary (HCP activated) Interim History: Interactive, difficult to understand, as speech is garbled. Alert, attentive. Denies feeling sad, nervous-gave a thumbs up when TW asked how he was feeling. Thought process with tangentiality, loose associations. Medication Compliance: Yes Side effects from medications: No Attending Groups: No Review of Systems Review of Systems Yes all other systems are reviewed and are negative (denies) Reports behavioral changes Psychiatric: Reports abnormal sleep pattern and Reports behavioral changes Mental Status Exam Mental Status Exam Patient Appearance: Disheveled Patient Orientation: Person and Place Level of Consciousness: Awake and Alert Patient Behavior: Talkative, Cooperative, Distractible and Good Eye Contact Mood Description: Calm and Happy Affect Description: Calm Patient Cognition Impaired: Yes Ability to Follow Directions: Fair Speech Pattern: Garbled and Spontaneous Speech Memory Description: Remote Impaired and Episodic Impaired Hallucinations: None (he says no today) Delusions: Not Present Thought Process: Distracted Thought Content: positive for Flight of Ideas, positive for Circumstantial, positive for Loose Associations and positive for Tangential Depressive Symptoms: Difficulty Sleeping Judgement: Fair Diagnostics Vital Signs (24Hr): Vital Signs - 24 hr 05/25/20 21:00 05/25/20 21:02 05/26/20 06:20 Temperature 96.6 F L 97.2 F Pulse Rate 91 91 83 Respiratory Rate 16 Blood Pressure 116/76 116/76 93/70 Pulse Oximetry 95 98 05/26/20 08:36 Temperature Pulse Rate Respiratory Rate Blood Pressure 123/82 Pulse Oximetry Body Mass Index 29.8 Labs Results: 05/18/20 10:03 05/18/20 10:04 Imaging Radiology Impressions: ITS Impressions Chest X-Ray 04/17/20 07:27 IMPRESSION: No acute cardiopulmonary findings Head CT 04/17/20 07:27 IMPRESSION: No acute intracranial findings. Sinus disease as described. Modified Barium Swallow 05/04/20 15:36 IMPRESSION: No significant abnormality identified on modified barium swallow. Please refer to speech pathology report for details. Chest X-Ray 05/05/20 19:15 IMPRESSION: No evidence for acute disease. Medications Medications Current Medications Generic Name Dose Route Start Last Admin Trade Name Freq PRN Reason Stop Dose Admin Acetaminophen 650 mg 04/18/20 18:48 05/17/20 11:12 Acetaminophen 325 Mg Tablet PO 650 mg Q6H PRN Administration Headache/Pain Mild Scale (1-3) Al Hydroxide/Mg Hydroxide 30 ml 04/18/20 18:48 Magnesium Hydrox/Alum Hydrox 30 Ml Oral.Susp PO Q6H PRN Heartburn/Nausea Chlorpromazine HCl 25 mg 05/25/20 15:00 05/26/20 14:10 Chlorpromazine Hcl 25 Mg Tablet PO 25 mg TID DEVONTE Administration Divalproex Sodium 1,000 mg 04/17/20 21:00 05/25/20 21:00 Divalproex Sodium Er 500 Mg Tab.Er.24h PO 1,000 mg BEDTIME DEVONTE Administration Divalproex Sodium 250 mg 04/22/20 09:00 05/26/20 08:41 Divalproex Sodium 250 Mg Tablet. PO 250 mg DAILY DEVONTE Administration Docusate Sodium 100 mg 04/29/20 21:00 05/26/20 08:43 Docusate Sodium 100 Mg Capsule PO Not Given BID DEVONTE Finasteride 5 mg 04/17/20 14:00 05/26/20 08:40 Finasteride 5 Mg Tablet PO 5 mg DAILY DEVONTE Administration Lorazepam 1 mg 05/24/20 21:00 05/25/20 21:00 Lorazepam 1 Mg Tablet PO 1 mg BEDTIME DEVONTE Administration Magnesium Hydroxide 30 ml 04/18/20 18:48 05/20/20 18:28 Milk Of Magnesia 30 Ml Oral.Susp PO 30 ml DAILY PRN Administration Constipation Metoprolol Tartrate 25 mg 04/17/20 14:00 05/26/20 08:40 Metoprolol Tartrate 50 Mg Tablet PO 25 mg BID DEVONTE Administration Protocol Multi-Ingred Cream/Lotion/Oil/Oint 1 appl 05/15/20 10:40 05/26/20 09:11 Mineral Oil/Petrolatum,White 106 Gm Tube TOPICAL 1 appl BID DEVONTE Administration Olanzapine 5 mg 04/19/20 07:01 05/15/20 08:21 Olanzapine 5 Mg Tablet PO 5 mg Q4H PRN Administration Psychosis,blake Olanzapine 30 mg 05/19/20 21:00 05/25/20 20:59 Olanzapine 10 Mg Tablet PO 30 mg BEDTIME DEVONTE Administration Omeprazole 20 mg 05/04/20 17:20 05/26/20 08:41 Omeprazole 20 Mg Capsule. PO 20 mg DAILY@0630 DEVONTE Administration Trazodone HCl 100 mg 05/01/20 21:00 05/19/20 20:52 Trazodone Hcl 100 Mg Tablet PO 100 mg BEDTIME DEVONTE Administration Vitamin D 25 mcg 04/22/20 09:00 05/26/20 08:40 Cholecalciferol (Vitamin D3) 25 Mcg Tablet PO 25 mcg DAILY DEVONTE Administration Allergies Allergies Allergy/AdvReac Type Severity Reaction Status Date / Time haloperidol [From HALDOL] Allergy Unknown UNKNOWN Verified 05/24/20 11:01 Helidac Allergy Unknown seizure Uncoded 07/28/19 00:00 and stiffness Assessment & Plan Assessment & Plan (1) Schizoaffective disorder, bipolar type: Status: Acute Code(s): F25.0 - Schizoaffective disorder, bipolar type Greater than 50% of the session was spent on counseling and/or coordination of care Reason for contiued inpatient stay Substantial Risk for: harm to self, harm to others, inability to function, rapid decompensation and med/psych decompensation
[2020-05-26 20:15] VITALS: BP 133/86; PULSE 81; TEMP 36.3
[2020-05-26] MEDS: LORazepam 1 MG TABLET PO (20:30)
[2020-05-26] MEDS: Divalproex Sodium ER 500 MG TAB.ER.24H 1000 MG PO (20:30)
[2020-05-26] MEDS: OLANZapine 10 MG TABLET 30 MG PO (20:30)
[2020-05-26 20:31] VITALS: BP 133/86; PULSE 94
[2020-05-27 03:41] LABS: Estimated Average Glucose 126 mg/dL
[2020-05-27 06:00] VITALS: BP 124/76; PULSE 81; RESP 16; TEMP 36.3; O2SAT 97
[2020-05-27] MEDS: Omeprazole 20 MG CAPSULE.DR PO (06:34)
[2020-05-27] MEDS: chlorproMAZINE HCl 25 MG TABLET PO ×3 (08:55→20:55)
[2020-05-27] MEDS: Cholecalciferol (Vitamin D3) 25 MCG TABLET PO (08:55)
[2020-05-27] MEDS: Divalproex Sodium 250 MG TABLET.DR PO (08:55)
[2020-05-27] MEDS: Finasteride 5 MG TABLET PO (08:55)
[2020-05-27 08:56] VITALS: BP 128/76; PULSE 81
[2020-05-27] MEDS: Metoprolol Tartrate 50 MG TABLET 25 MG PO ×2 (08:56→20:56)
[2020-05-27] MEDS: Mineral Oil/Petrolatum,White 106 GM Tube 1 APPL TOPICAL ×2 (10:45→21:24)
[2020-05-27 18:00] VITALS: BP 151/74; PULSE 84; TEMP 36.3
--- NOTE | 2020-05-27 19:21 | P.PNPSI_ITS ---
Subjective Subjective Date of Service: 05/27/20 Reason For Visit: Bipolar disorder Subjective Notes: Conditional Voluntary Interim History: Speech continues garbled. Observed angry today as another patient confronted him inappropriately. At that time his speech was loud clear and able to be understood. He asserted himself appropriately Medication Compliance: Yes Side effects from medications: No Attending Groups: No Review of Systems Reports behavioral changes Psychiatric: Reports abnormal sleep pattern, Reports behavioral changes and Reports irritability Mental Status Exam Mental Status Exam Patient Appearance: Appropriate (daily attention to ADL's) Patient Orientation: Person Level of Consciousness: Awake and Alert Patient Behavior: Talkative and Good Eye Contact Mood Description: Labile Affect Description: Labile Patient Cognition Impaired: No Ability to Follow Directions: Good Speech Pattern: Garbled and Spontaneous Speech Memory Description: Remote Impaired and Episodic Impaired Hallucinations: Auditory Delusions: Not Present Thought Process: Distracted Thought Content: positive for Circumstantial Depressive Symptoms: Increased Anxiety and Increased Irritability Judgement: Fair Diagnostics Vital Signs (24Hr): Vital Signs - 24 hr 05/26/20 20:15 05/26/20 20:31 05/27/20 06:00 Temperature 97.4 F 97.4 F Pulse Rate 81 94 81 Respiratory Rate 16 Blood Pressure 133/86 133/86 124/76 Pulse Oximetry 97 05/27/20 08:56 05/27/20 18:00 Temperature 97.4 F Pulse Rate 81 84 Respiratory Rate Blood Pressure 128/76 151/74 H Pulse Oximetry Body Mass Index 29.8 Labs Results: 05/18/20 10:03 05/18/20 10:04 Labs: Laboratory Results - last 48 hr 05/26/20 18:55 Estimat Average Glucose 126 Hemoglobin A1c % 6.0 Imaging Radiology Impressions: ITS Impressions Chest X-Ray 04/17/20 07:27 IMPRESSION: No acute cardiopulmonary findings Head CT 04/17/20 07:27 IMPRESSION: No acute intracranial findings. Sinus disease as described. Modified Barium Swallow 05/04/20 15:36 IMPRESSION: No significant abnormality identified on modified barium swallow. Please refer to speech pathology report for details. Chest X-Ray 05/05/20 19:15 IMPRESSION: No evidence for acute disease. Medications Medications Current Medications Generic Name Dose Route Start Last Admin Trade Name Freq PRN Reason Stop Dose Admin Acetaminophen 650 mg 04/18/20 18:48 03/02/21 11:12 Acetaminophen 325 Mg Tablet PO 650 mg Q6H PRN Administration Headache/Pain Mild Scale (1-3) Al Hydroxide/Mg Hydroxide 30 ml 04/18/20 18:48 Magnesium Hydrox/Alum Hydrox 30 Ml Oral.Susp PO Q6H PRN Heartburn/Nausea Chlorpromazine HCl 25 mg 05/25/20 15:00 05/27/20 14:37 Chlorpromazine Hcl 25 Mg Tablet PO 25 mg TID DEVONTE Administration Divalproex Sodium 1,000 mg 04/17/20 21:00 05/26/20 20:30 Divalproex Sodium Er 500 Mg Tab.Er.24h PO 1,000 mg BEDTIME DEVONTE Administration Divalproex Sodium 250 mg 04/22/20 09:00 05/27/20 08:55 Divalproex Sodium 250 Mg Tablet. PO 250 mg DAILY DEVONTE Administration Docusate Sodium 100 mg 04/29/20 21:00 05/27/20 09:00 Docusate Sodium 100 Mg Capsule PO Not Given BID [facility] Finasteride 5 mg 04/17/20 14:00 05/27/20 08:55 Finasteride 5 Mg Tablet PO 5 mg DAILY DEVONTE Administration Lorazepam 1 mg 05/24/20 21:00 05/26/20 20:30 Lorazepam 1 Mg Tablet PO 1 mg BEDTIME DEVONTE Administration Magnesium Hydroxide 30 ml 04/18/20 18:48 05/20/20 18:28 Milk Of Magnesia 30 Ml Oral.Susp PO 30 ml DAILY PRN Administration Constipation Metoprolol Tartrate 25 mg 04/17/20 14:00 05/27/20 08:56 Metoprolol Tartrate 50 Mg Tablet PO 25 mg BID DEVONTE Administration Protocol Multi-Ingred Cream/Lotion/Oil/Oint 1 appl 05/15/20 10:40 05/27/20 10:45 Mineral Oil/Petrolatum,White 106 Gm Tube TOPICAL 1 appl BID DEVONTE Administration Olanzapine 5 mg 04/19/20 07:01 05/15/20 08:21 Olanzapine 5 Mg Tablet PO 5 mg Q4H PRN Administration Psychosis,blake Olanzapine 30 mg 05/19/20 21:00 05/26/20 20:30 Olanzapine 10 Mg Tablet PO 30 mg BEDTIME DEVONTE Administration Omeprazole 20 mg 05/04/20 17:20 05/27/20 06:34 Omeprazole 20 Mg Capsule. PO 20 mg DAILY@0630 DEVONTE Administration Trazodone HCl 100 mg 05/01/20 21:00 05/19/20 20:52 Trazodone Hcl 100 Mg Tablet PO 100 mg BEDTIME DEOVNTE Administration Vitamin D 25 mcg 04/22/20 09:00 05/27/20 08:55 Cholecalciferol (Vitamin D3) 25 Mcg Tablet PO 25 mcg DAILY DEVONTE Administration Allergies Allergies Allergy/AdvReac Type Severity Reaction Status Date / Time haloperidol [From HALDOL] Allergy Unknown UNKNOWN Verified 05/24/20 11:01 Helidac Allergy Unknown seizure Uncoded 07/28/19 00:00 and stiffness Assessment & Plan Assessment & Plan (1) Schizoaffective disorder, bipolar type: Status: Acute Code(s): F25.0 - Schizoaffective disorder, bipolar type Greater than 50% of the session was spent on counseling and/or coordination of care Reason for contiued inpatient stay Substantial Risk for: harm to self, inability to function, rapid decompensation and med/psych decompensation
[2020-05-27 20:45] VITALS: BP 118/70; PULSE 91
[2020-05-27] MEDS: OLANZapine 10 MG TABLET 30 MG PO (20:55)
[2020-05-27 20:56] VITALS: BP 118/70; PULSE 91
[2020-05-27] MEDS: Docusate Sodium 100 MG CAPSULE PO (20:56)
[2020-05-27] MEDS: LORazepam 1 MG TABLET PO (20:56)
[2020-05-28 06:00] VITALS: BP 113/68; PULSE 93; RESP 18; TEMP 36.4; O2SAT 97
[2020-05-28 08:21] VITALS: BP 126/91; PULSE 89
[2020-05-28] MEDS: Finasteride 5 MG TABLET PO (08:39)
[2020-05-28] MEDS: Divalproex Sodium 250 MG TABLET.DR PO (08:39)
[2020-05-28] MEDS: Cholecalciferol (Vitamin D3) 25 MCG TABLET PO (08:39)
[2020-05-28] MEDS: Omeprazole 20 MG CAPSULE.DR PO (08:39)
[2020-05-28] MEDS: chlorproMAZINE HCl 25 MG TABLET PO ×3 (08:39→21:32)
[2020-05-28] MEDS: Docusate Sodium 100 MG CAPSULE PO (08:39)
[2020-05-28] MEDS: Mineral Oil/Petrolatum,White 106 GM Tube 1 APPL TOPICAL ×2 (08:39→21:57)
[2020-05-28] MEDS: Metoprolol Tartrate 50 MG TABLET 25 MG PO ×2 (08:40→21:32)
--- NOTE | 2020-05-28 12:15 | HO.PSYCHPN ---
Subjective Subjective Date of Service: 05/29/20 Reason For Visit: Bipolar disorder Interim History: 05/28/2020 patient continues in much the same way. Was briefly logical but then difficult to follow. Continue with medications as prescribed no medication changes. : Speech continues garbled. Observed angry today as another patient confronted him inappropriately. At that time his speech was loud clear and able to be understood. He asserted himself appropriately Review of Systems Review of Systems No recent cold or flu-like illness or trauma or seizure-like activity. Yes all other systems are reviewed and are negative (denies) and Unobtainable due to mental status Constitutional: Reports as per HPI and Reports no additional constitutional complaints Cardiovascular: Reports other (hypotensive, metoprolol held this a.m.) Reports behavioral changes and Reports confusion Psychiatric: Reports no additional psychiatric complaints, Reports abnormal sleep pattern, Reports behavioral changes, Reports change in appetite, Reports confusion, Reports depression, Reports difficulty concentrating, Reports auditory hallucinations, Reports irritability, Reports anhedonia, Reports mood swings, Reports paranoia, Reports visual hallucinations, Reports hallucinations, Reports tactile hallucinations, Reports homicidal ideation (no sx) and Reports suicidal ideation (no sx) Hematologic/Lymphatic: Reports other (anemia-messages left with PCP to discuss current values) Mental Status Exam Mental Status Exam Patient Appearance: Appropriate (daily attention to ADL's) Patient Orientation: Person Level of Consciousness: Awake and Alert Patient Behavior: Talkative and Good Eye Contact Mood Description: Labile Affect Description: Labile Patient Cognition Impaired: No Ability to Follow Directions: Good Speech Pattern: Garbled and Spontaneous Speech Memory Description: Remote Impaired and Episodic Impaired Diagnostics Vital Signs (24Hr): Vital Signs - 24 hr 05/27/20 18:00 05/27/20 20:45 05/27/20 20:56 Temperature 97.4 F Pulse Rate 84 91 91 Respiratory Rate Blood Pressure 151/74 H 118/70 118/70 Pulse Oximetry 05/28/20 06:00 05/28/20 08:21 Temperature 97.5 F Pulse Rate 93 89 Respiratory Rate 18 Blood Pressure 113/68 126/91 H Pulse Oximetry 97 Body Mass Index 29.8 Labs Results: 05/18/20 10:03 05/18/20 10:04 Labs: Laboratory Results - last 48 hr 05/26/20 18:55 Estimat Average Glucose 126 Hemoglobin A1c % 6.0 Imaging Radiology Impressions: ITS Impressions Chest X-Ray 04/17/20 07:27 IMPRESSION: No acute cardiopulmonary findings Head CT 04/17/20 07:27 IMPRESSION: No acute intracranial findings. Sinus disease as described. Modified Barium Swallow 05/04/20 15:36 IMPRESSION: No significant abnormality identified on modified barium swallow. Please refer to speech pathology report for details. Chest X-Ray 05/05/20 19:15 IMPRESSION: No evidence for acute disease. Medications Medications Current Medications Generic Name Dose Route Start Last Admin Trade Name Freq PRN Reason Stop Dose Admin Acetaminophen 650 mg 04/18/20 18:48 05/17/20 11:12 Acetaminophen 325 Mg Tablet PO 650 mg Q6H PRN Administration Headache/Pain Mild Scale (1-3) Al Hydroxide/Mg Hydroxide 30 ml 04/18/20 18:48 Magnesium Hydrox/Alum Hydrox 30 Ml Oral.Susp PO Q6H PRN Heartburn/Nausea Chlorpromazine HCl 25 mg 05/25/20 15:00 05/28/20 08:39 Chlorpromazine Hcl 25 Mg Tablet PO 25 mg TID DEVONTE Administration Divalproex Sodium 1,000 mg 04/17/20 21:00 05/27/20 21:02 Divalproex Sodium Er 500 Mg Tab.Er.24h PO Not Given BEDTIME DEVONTE Divalproex Sodium 250 mg 04/22/20 09:00 05/28/20 08:39 Divalproex Sodium 250 Mg Tablet.Dr PO 250 mg DAILY DEVONTE Administration Docusate Sodium 100 mg 04/29/20 21:00 05/28/20 08:39 Docusate Sodium 100 Mg Capsule PO 100 mg BID DEVONTE Administration Finasteride 5 mg 04/17/20 14:00 05/28/20 08:39 Finasteride 5 Mg Tablet PO 5 mg DAILY DEVONTE Administration Lorazepam 1 mg 05/24/20 21:00 05/27/20 20:56 Lorazepam 1 Mg Tablet PO 1 mg BEDTIME DEVONTE Administration Magnesium Hydroxide 30 ml 04/18/20 18:48 05/20/20 18:28 Milk Of Magnesia 30 Ml Oral.Susp PO 30 ml DAILY PRN Administration Constipation Metoprolol Tartrate 25 mg 04/17/20 14:00 05/28/20 08:40 Metoprolol Tartrate 50 Mg Tablet PO 25 mg BID DEVONTE Administration Protocol Multi-Ingred Cream/Lotion/Oil/Oint 1 appl 05/15/20 10:40 05/28/20 08:39 Mineral Oil/Petrolatum,White 106 Gm Tube TOPICAL 1 appl BID DEVONTE Administration Olanzapine 5 mg 04/19/20 07:01 05/15/20 08:21 Olanzapine 5 Mg Tablet PO 5 mg Q4H PRN Administration Psychosis,blake Olanzapine 30 mg 05/19/20 21:00 05/27/20 20:55 Olanzapine 10 Mg Tablet PO 30 mg BEDTIME DEVONTE Administration Omeprazole 20 mg 05/04/20 17:20 05/28/20 08:39 Omeprazole 20 Mg Capsule. PO 20 mg DAILY@0630 DEVONTE Administration Trazodone HCl 100 mg 05/01/20 21:00 05/19/20 20:52 Trazodone Hcl 100 Mg Tablet PO 100 mg BEDTIME DEVONTE Administration Vitamin D 25 mcg 04/22/20 09:00 05/28/20 08:39 Cholecalciferol (Vitamin D3) 25 Mcg Tablet PO 25 mcg DAILY DEVONTE Administration Allergies Allergies Allergy/AdvReac Type Severity Reaction Status Date / Time haloperidol [From HALDOL] Allergy Unknown UNKNOWN Verified 05/24/20 11:01 Helidac Allergy Unknown seizure Uncoded 07/28/19 00:00 and stiffness Assessment & Plan Assessment & Plan (1) Schizoaffective disorder, bipolar type: Status: Acute Code(s): F25.0 - Schizoaffective disorder, bipolar type Greater than 50% of the session was spent on counseling and/or coordination of care Reason for contiued inpatient stay Substantial Risk for: rapid decompensation
[2020-05-28 21:30] VITALS: BP 132/82; PULSE 89; TEMP 36.6; O2SAT 97
[2020-05-28 21:32] VITALS: BP 132/82; PULSE 89
[2020-05-28] MEDS: Divalproex Sodium ER 500 MG TAB.ER.24H 1000 MG PO (21:32)
[2020-05-28] MEDS: OLANZapine 10 MG TABLET 30 MG PO (21:32)
[2020-05-28] MEDS: LORazepam 1 MG TABLET PO (21:32)
[2020-05-29 06:40] VITALS: BP 117/70; PULSE 71; RESP 18; TEMP 36.7; O2SAT 97
--- NOTE | 2020-05-29 08:12 | HO.PSYCHPN ---
Subjective Subjective Date of Service: 05/29/20 Reason For Visit: Bipolar disorder Interim History: 05/29/2020: Patient continues with garbled speech. Was very difficult to understand today. No major changes in medications or status. 05/28/2020 patient continues in much the same way. Was briefly logical but then difficult to follow. Continue with medications as prescribed no medication changes. : Speech continues garbled. Observed angry today as another patient confronted him inappropriately. At that time his speech was loud clear and able to be understood. He asserted himself appropriately Review of Systems Review of Systems No recent cold or flu-like illness or trauma or seizure-like activity. Yes all other systems are reviewed and are negative (denies) and Unobtainable due to mental status Constitutional: Reports as per HPI and Reports no additional constitutional complaints Cardiovascular: Reports other (hypotensive, metoprolol held this a.m.) Reports behavioral changes and Reports confusion Psychiatric: Reports no additional psychiatric complaints, Reports abnormal sleep pattern, Reports behavioral changes, Reports change in appetite, Reports confusion, Reports depression, Reports difficulty concentrating, Reports auditory hallucinations, Reports irritability, Reports anhedonia, Reports mood swings, Reports paranoia, Reports visual hallucinations, Reports hallucinations, Reports tactile hallucinations, Reports homicidal ideation (no sx) and Reports suicidal ideation (no sx) Hematologic/Lymphatic: Reports other (anemia-messages left with PCP to discuss current values) Mental Status Exam Mental Status Exam Patient Appearance: Appropriate (daily attention to ADL's) Patient Orientation: Person Level of Consciousness: Awake and Alert Patient Behavior: Talkative and Good Eye Contact Mood Description: Labile Affect Description: Labile Patient Cognition Impaired: No Ability to Follow Directions: Good Speech Pattern: Garbled and Spontaneous Speech Memory Description: Remote Impaired and Episodic Impaired Diagnostics Vital Signs (24Hr): Vital Signs - 24 hr 05/28/20 08:21 05/28/20 21:30 05/28/20 21:32 Temperature 97.8 F Pulse Rate 89 89 89 Respiratory Rate Blood Pressure 126/91 H 132/82 132/82 Pulse Oximetry 97 05/29/20 06:40 Temperature 98.0 F Pulse Rate 71 Respiratory Rate 18 Blood Pressure 117/70 Pulse Oximetry 97 Body Mass Index 29.8 Labs Results: 05/18/20 10:03 03/03/21 10:04 Imaging Radiology Impressions: ITS Impressions Chest X-Ray 04/17/20 07:27 IMPRESSION: No acute cardiopulmonary findings Head CT 04/17/20 07:27 IMPRESSION: No acute intracranial findings. Sinus disease as described. Modified Barium Swallow 05/04/20 15:36 IMPRESSION: No significant abnormality identified on modified barium swallow. Please refer to speech pathology report for details. Chest X-Ray 05/05/20 19:15 IMPRESSION: No evidence for acute disease. Medications Medications Current Medications Generic Name Dose Route Start Last Admin Trade Name Freq PRN Reason Stop Dose Admin Acetaminophen 650 mg 04/18/20 18:48 05/17/20 11:12 Acetaminophen 325 Mg Tablet PO 650 mg Q6H PRN Administration Headache/Pain Mild Scale (1-3) Al Hydroxide/Mg Hydroxide 30 ml 04/18/20 18:48 Magnesium Hydrox/Alum Hydrox 30 Ml Oral.Susp PO Q6H PRN Heartburn/Nausea Chlorpromazine HCl 25 mg 05/25/20 15:00 05/28/20 21:32 Chlorpromazine Hcl 25 Mg Tablet PO 25 mg TID DEVONTE Administration Divalproex Sodium 1,000 mg 04/17/20 21:00 05/28/20 21:32 Divalproex Sodium Er 500 Mg Tab.Er.24h PO 1,000 mg BEDTIME DEVONTE Administration Divalproex Sodium 250 mg 04/22/20 09:00 05/28/20 08:39 Divalproex Sodium 250 Mg Tablet.Dr PO 250 mg DAILY DEVONTE Administration Docusate Sodium 100 mg 04/29/20 21:00 05/28/20 22:41 Docusate Sodium 100 Mg Capsule PO Not Given BID DEVONTE Finasteride 5 mg 04/17/20 14:00 05/28/20 08:39 Finasteride 5 Mg Tablet PO 5 mg DAILY DEVONTE Administration Lorazepam 1 mg 05/24/20 21:00 05/28/20 21:32 Lorazepam 1 Mg Tablet PO 1 mg BEDTIME DEVONTE Administration Magnesium Hydroxide 30 ml 04/18/20 18:48 05/20/20 18:28 Milk Of Magnesia 30 Ml Oral.Susp PO 30 ml DAILY PRN Administration Constipation Metoprolol Tartrate 25 mg 04/17/20 14:00 05/28/20 21:32 Metoprolol Tartrate 50 Mg Tablet PO 25 mg BID DEVONTE Administration Protocol Multi-Ingred Cream/Lotion/Oil/Oint 1 appl 05/15/20 10:40 05/28/20 21:57 Mineral Oil/Petrolatum,White 106 Gm Tube TOPICAL 1 appl BID DEVONTE Administration Olanzapine 5 mg 04/19/20 07:01 05/15/20 08:21 Olanzapine 5 Mg Tablet PO 5 mg Q4H PRN Administration Psychosis,blake Olanzapine 30 mg 05/19/20 21:00 05/28/20 21:32 Olanzapine 10 Mg Tablet PO 30 mg BEDTIME DEVONTE Administration Omeprazole 20 mg 05/04/20 17:20 05/28/20 08:39 Omeprazole 20 Mg Capsule. PO 20 mg DAILY@0630 DEVONTE Administration Trazodone HCl 100 mg 05/01/20 21:00 05/19/20 20:52 Trazodone Hcl 100 Mg Tablet PO 100 mg BEDTIME DEVONTE Administration Vitamin D 25 mcg 04/22/20 09:00 05/28/20 08:39 Cholecalciferol (Vitamin D3) 25 Mcg Tablet PO 25 mcg DAILY DEVONTE Administration Allergies Allergies Allergy/AdvReac Type Severity Reaction Status Date / Time haloperidol [From HALDOL] Allergy Unknown UNKNOWN Verified 05/24/20 11:01 Helidac Allergy Unknown seizure Uncoded 07/28/19 00:00 and stiffness Assessment & Plan Assessment & Plan (1) Schizoaffective disorder, bipolar type: Status: Acute Code(s): F25.0 - Schizoaffective disorder, bipolar type Greater than 50% of the session was spent on counseling and/or coordination of care Reason for contiued inpatient stay Substantial Risk for: inability to function
[2020-05-29 08:25] VITALS: BP 127/81; PULSE 81
[2020-05-29 08:41] VITALS: BP 127/81
[2020-05-29] MEDS: Metoprolol Tartrate 50 MG TABLET 25 MG PO ×2 (08:41→21:53)
[2020-05-29] MEDS: Finasteride 5 MG TABLET PO (08:41)
[2020-05-29] MEDS: Mineral Oil/Petrolatum,White 106 GM Tube 1 APPL TOPICAL ×2 (08:41→21:56)
[2020-05-29] MEDS: chlorproMAZINE HCl 25 MG TABLET PO ×3 (08:41→21:55)
[2020-05-29] MEDS: Cholecalciferol (Vitamin D3) 25 MCG TABLET PO (08:41)
[2020-05-29] MEDS: Divalproex Sodium 250 MG TABLET.DR PO (08:41)
[2020-05-29] MEDS: Omeprazole 20 MG CAPSULE.DR PO (08:42)
[2020-05-29 21:53] VITALS: BP 129/90; PULSE 98
[2020-05-29] MEDS: OLANZapine 10 MG TABLET 30 MG PO (21:53)
[2020-05-29] MEDS: Divalproex Sodium ER 500 MG TAB.ER.24H 1000 MG PO (21:53)
[2020-05-29 21:57] VITALS: BP 129/90; PULSE 98; TEMP 36.8; O2SAT 98
[2020-05-30 06:20] VITALS: BP 111/66; PULSE 74; RESP 16; TEMP 36.2; O2SAT 96
[2020-05-30] MEDS: Omeprazole 20 MG CAPSULE.DR PO (07:09)
[2020-05-30 08:18] VITALS: BP 114/78; PULSE 88
[2020-05-30 08:29] LABS: Estimated Average Glucose 126 mg/dL
[2020-05-30 08:44] VITALS: BP 114/78; PULSE 88
[2020-05-30] MEDS: Mineral Oil/Petrolatum,White 106 GM Tube 1 APPL TOPICAL ×2 (08:44→21:33)
[2020-05-30] MEDS: Divalproex Sodium 250 MG TABLET.DR PO (08:44)
[2020-05-30] MEDS: Finasteride 5 MG TABLET PO (08:44)
[2020-05-30] MEDS: Metoprolol Tartrate 50 MG TABLET 25 MG PO ×2 (08:44→21:36)
[2020-05-30] MEDS: Cholecalciferol (Vitamin D3) 25 MCG TABLET PO (08:45)
[2020-05-30] MEDS: chlorproMAZINE HCl 25 MG TABLET PO ×3 (08:45→21:36)
--- NOTE | 2020-05-30 17:46 | P.PNPSI_ITS ---
Subjective Subjective Date of Service: 05/30/20 Reason For Visit: Bipolar disorder Subjective Notes: Conditional Voluntary (HCP activated) Interim History: Pt asked to meet in the conference room today. He discussed not wanting to return to his former apartment. He believes one of his room-mates is in need of a detention, one has a drinking problem. He would like other options and if that takes time, he reports he feels comfortable here and safe . Speech is somewhat garbled, easier to understand if he slows and re-states. Thought process was clear, circumstantial and concrete with FOI. Reports voices are soft and music is in the background. Does not feel overmedicated he states. Observing neck position and question of dystonia, EPS, pt denies however and changes the subject to talk about wanting to have a [place] Review of Systems Review of Systems Yes all other systems are reviewed and are negative (denies) Musculoskeletal: Reports neck pain (denies pain, however neck position appears weak.) Reports behavioral changes Psychiatric: Reports abnormal sleep pattern (states he sleeps like a log because of Depakote ), Reports behavioral changes and Reports auditory hallucinations Mental Status Exam Mental Status Exam Patient Appearance: Appropriate Patient Orientation: Person, Place ([facility]), Time (It will be lunch soon) and Situation (I don't want to go back to that apartment) Level of Consciousness: Awake, Appropriate and Alert Patient Behavior: Appropriate, Talkative, Cooperative and Good Eye Contact Mood Description: Calm Affect Description: Calm Patient Cognition Impaired: Yes Ability to Follow Directions: Good Speech Pattern: Garbled, Spontaneous Speech, Soft-Spoken, Mumbled, Rapid and Poor Articulation Memory Description: Episodic Impaired Hallucinations: Auditory (soft voices, music in the background) Thought Process: Goal Oriented Thought Content: positive for [place], positive for [place], positive for Circumstantial and positive for Goal Oriented Judgement: Fair Diagnostics Vital Signs (24Hr): Vital Signs - 24 hr 05/29/20 21:53 05/29/20 21:57 05/30/20 06:20 Temperature 98.2 F 97.2 F Pulse Rate 98 98 74 Respiratory Rate 16 Blood Pressure 129/90 H 129/90 H 111/66 Pulse Oximetry 98 96 05/30/20 08:18 05/30/20 08:44 Temperature Pulse Rate 88 88 Respiratory Rate Blood Pressure 114/78 114/78 Pulse Oximetry Body Mass Index 29.8 Labs Results: 05/18/20 10:03 05/18/20 10:04 Labs: Laboratory Results - last 48 hr 05/30/20 05/30/20 07:52 07:52 Estimat Average Glucose 126 Hemoglobin A1c % 6.0 Valproic Acid 69.0 Imaging Radiology Impressions: ITS Impressions Chest X-Ray 04/17/20 07:27 IMPRESSION: No acute cardiopulmonary findings Head CT 04/17/20 07:27 IMPRESSION: No acute intracranial findings. Sinus disease as described. Modified Barium Swallow 05/04/20 15:36 IMPRESSION: No significant abnormality identified on modified barium swallow. Please refer to speech pathology report for details. Chest X-Ray 05/05/20 19:15 IMPRESSION: No evidence for acute disease. Medications Medications Current Medications Generic Name Dose Route Start Last Admin Trade Name Freq PRN Reason Stop Dose Admin Acetaminophen 650 mg 04/18/20 18:48 05/17/20 11:12 Acetaminophen 325 Mg Tablet PO 650 mg Q6H PRN Administration Headache/Pain Mild Scale (1-3) Al Hydroxide/Mg Hydroxide 30 ml 04/18/20 18:48 Magnesium Hydrox/Alum Hydrox 30 Ml Oral.Susp PO Q6H PRN Heartburn/Nausea Chlorpromazine HCl 25 mg 05/25/20 15:00 05/30/20 14:44 Chlorpromazine Hcl 25 Mg Tablet PO 25 mg TID DEVONTE Administration Divalproex Sodium 1,000 mg 04/17/20 21:00 05/29/20 21:53 Divalproex Sodium Er 500 Mg Tab.Er.24h PO 1,000 mg BEDTIME DEVONTE Administration Divalproex Sodium 250 mg 04/22/20 09:00 05/30/20 08:44 Divalproex Sodium 250 Mg Tablet.Dr PO 250 mg DAILY DEVONTE Administration Docusate Sodium 100 mg 04/29/20 21:00 05/30/20 08:50 Docusate Sodium 100 Mg Capsule PO Not Given BID DEVONTE Finasteride 5 mg 04/17/20 14:00 05/30/20 08:44 Finasteride 5 Mg Tablet PO 5 mg DAILY DEVONTE Administration Magnesium Hydroxide 30 ml 04/18/20 18:48 05/20/20 18:28 Milk Of Magnesia 30 Ml Oral.Susp PO 30 ml DAILY PRN Administration Constipation Metoprolol Tartrate 25 mg 04/17/20 14:00 05/30/20 08:44 Metoprolol Tartrate 50 Mg Tablet PO 25 mg BID DEVONTE Administration Protocol Multi-Ingred Cream/Lotion/Oil/Oint 1 appl 05/15/20 10:40 05/30/20 08:44 Mineral Oil/Petrolatum,White 106 Gm Tube TOPICAL 1 appl BID DEVONTE Administration Olanzapine 5 mg 04/19/20 07:01 05/15/20 08:21 Olanzapine 5 Mg Tablet PO 5 mg Q4H PRN Administration Psychosis,blake Olanzapine 30 mg 05/19/20 21:00 05/29/20 21:53 Olanzapine 10 Mg Tablet PO 30 mg BEDTIME DEVONTE Administration Omeprazole 20 mg 05/04/20 17:20 05/30/20 07:09 Omeprazole 20 Mg Capsule. PO 20 mg DAILY@0630 DEVONTE Administration Trazodone HCl 100 mg 05/01/20 21:00 05/19/20 20:52 Trazodone Hcl 100 Mg Tablet PO 100 mg BEDTIME DEVONTE Administration Vitamin D 25 mcg 04/22/20 09:00 05/30/20 08:45 Cholecalciferol (Vitamin D3) 25 Mcg Tablet PO 25 mcg DAILY DEVONTE Administration Allergies Allergies Allergy/AdvReac Type Severity Reaction Status Date / Time haloperidol [From HALDOL] Allergy Unknown UNKNOWN Verified 05/24/20 11:01 Helidac Allergy Unknown seizure Uncoded 07/28/19 00:00 and stiffness Assessment & Plan Assessment & Plan (1) Schizoaffective disorder, bipolar type: Status: Acute Code(s): F25.0 - Schizoaffective disorder, bipolar type Greater than 50% of the session was spent on counseling and/or coordination of care Reason for contiued inpatient stay Substantial Risk for: harm to self, harm to others, inability to function, rapid decompensation and med/psych decompensation
[2020-05-30 21:36] VITALS: BP 140/81; PULSE 78
[2020-05-30] MEDS: Divalproex Sodium ER 500 MG TAB.ER.24H 1000 MG PO (21:36)
[2020-05-30] MEDS: Docusate Sodium 100 MG CAPSULE PO (21:36)
[2020-05-30] MEDS: OLANZapine 10 MG TABLET 30 MG PO (21:36)
[2020-05-31 06:35] VITALS: BP 121/74; PULSE 72; RESP 18; TEMP 36.1; O2SAT 97
[2020-05-31] MEDS: Omeprazole 20 MG CAPSULE.DR PO (06:43)
[2020-05-31 08:52] VITALS: BP 126/81; PULSE 78
[2020-05-31] MEDS: Finasteride 5 MG TABLET PO (08:53)
[2020-05-31] MEDS: Docusate Sodium 100 MG CAPSULE PO ×2 (08:53→20:55)
[2020-05-31] MEDS: Cholecalciferol (Vitamin D3) 25 MCG TABLET PO (08:53)
[2020-05-31] MEDS: chlorproMAZINE HCl 25 MG TABLET PO ×3 (08:53→20:55)
[2020-05-31] MEDS: Metoprolol Tartrate 50 MG TABLET 25 MG PO ×2 (08:53→20:55)
[2020-05-31] MEDS: Divalproex Sodium 250 MG TABLET.DR PO (08:53)
[2020-05-31] MEDS: Mineral Oil/Petrolatum,White 106 GM Tube 1 APPL TOPICAL ×2 (09:00→20:54)
[2020-05-31] MEDS: Acetaminophen 325 MG TABLET 650 MG PO (09:27)
[2020-05-31 18:00] VITALS: BP 112/62; PULSE 71; RESP 18; TEMP 36; O2SAT 99
--- NOTE | 2020-05-31 18:08 | P.PNPSI_ITS ---
Subjective Subjective Date of Service: 05/31/20 Reason For Visit: Bipolar disorder Subjective Notes: Conditional Voluntary (HCP activated) Interim History: Visable in milieu, decreased lability, speech is clearer-very clear when upset or angry with peers. [place] for a brief time today. Discussing not wanting to return to previous independent living apartment, st ating I will live here with all of you. Overall improved. Medication Compliance: Yes Side effects from medications: No Attending Groups: Yes Review of Systems Review of Systems Yes all other systems are reviewed and are negative (pt denies current medical sx.) Reports behavioral changes Psychiatric: Reports behavioral changes and Reports suicidal ideation ( no and laughs) Mental Status Exam Mental Status Exam Patient Appearance: Appropriate Patient Orientation: Person and Place Level of Consciousness: Alert Patient Behavior: Appropriate, Talkative, Passive, Distractible and Good Eye Contact Mood Description: Calm, Withdrawn and Cheerful Affect Description: Calm Patient Cognition Impaired: No Ability to Follow Directions: Good Speech Pattern: Garbled (less today), Spontaneous Speech, Soft-Spoken and Poor Articulation Memory Description: Episodic Impaired Hallucinations: None Delusions: Not Present Thought Process: Distracted Thought Content: positive for [place] and positive for Circumstantial Depressive Symptoms: Thoughts of /Suicide (denies) Judgement: Fair Diagnostics Vital Signs (24Hr): Vital Signs - 24 hr 05/30/20 21:36 05/31/20 06:35 05/31/20 08:52 Temperature 97.0 F Pulse Rate 78 72 78 Respiratory Rate 18 Blood Pressure 140/81 H 121/74 126/81 Pulse Oximetry 97 Body Mass Index 29.8 Labs Results: 05/18/20 10:03 05/18/20 10:04 Labs: Laboratory Results - last 48 hr 05/30/20 05/30/20 07:52 07:52 Estimat Average Glucose 126 Hemoglobin A1c % 6.0 Valproic Acid 69.0 Imaging Radiology Impressions: ITS Impressions Chest X-Ray 04/17/20 07:27 IMPRESSION: No acute cardiopulmonary findings Head CT 04/17/20 07:27 IMPRESSION: No acute intracranial findings. Sinus disease as described. Modified Barium Swallow 05/04/20 15:36 IMPRESSION: No significant abnormality identified on modified barium swallow. Please refer to speech pathology report for details. Chest X-Ray 05/05/20 19:15 IMPRESSION: No evidence for acute disease. Medications Medications Current Medications Generic Name Dose Route Start Last Admin Trade Name Freq PRN Reason Stop Dose Admin Acetaminophen 650 mg 04/18/20 18:48 05/31/20 09:27 Acetaminophen 325 Mg Tablet PO 650 mg Q6H PRN Administration Headache/Pain Mild Scale (1-3) Al Hydroxide/Mg Hydroxide 30 ml 04/18/20 18:48 Magnesium Hydrox/Alum Hydrox 30 Ml Oral.Susp PO Q6H PRN Heartburn/Nausea Chlorpromazine HCl 25 mg 05/25/20 15:00 05/31/20 14:44 Chlorpromazine Hcl 25 Mg Tablet PO 25 mg TID DEVONTE Administration Divalproex Sodium 1,000 mg 04/17/20 21:00 05/30/20 21:36 Divalproex Sodium Er 500 Mg Tab.Er.24h PO 1,000 mg BEDTIME DEVONTE Administration Divalproex Sodium 250 mg 04/22/20 09:00 05/31/20 08:53 Divalproex Sodium 250 Mg Tablet.Dr PO 250 mg DAILY DEVONTE Administration Docusate Sodium 100 mg 04/29/20 21:00 05/31/20 08:53 Docusate Sodium 100 Mg Capsule PO 100 mg BID DEVONTE Administration Finasteride 5 mg 04/17/20 14:00 05/31/20 08:53 Finasteride 5 Mg Tablet PO 5 mg DAILY DEVONTE Administration Magnesium Hydroxide 30 ml 04/18/20 18:48 05/20/20 18:28 Milk Of Magnesia 30 Ml Oral.Susp PO 30 ml DAILY PRN Administration Constipation Metoprolol Tartrate 25 mg 04/17/20 14:00 05/31/20 08:53 Metoprolol Tartrate 50 Mg Tablet PO 25 mg BID DEVONTE Administration Protocol Multi-Ingred Cream/Lotion/Oil/Oint 1 appl 05/15/20 10:40 05/31/20 09:00 Mineral Oil/Petrolatum,White 106 Gm Tube TOPICAL 1 appl BID DEVONTE Administration Olanzapine 5 mg 04/19/20 07:01 05/15/20 08:21 Olanzapine 5 Mg Tablet PO 5 mg Q4H PRN Administration Psychosis,blake Olanzapine 30 mg 05/19/20 21:00 05/30/20 21:36 Olanzapine 10 Mg Tablet PO 30 mg BEDTIME DEVONTE Administration Omeprazole 20 mg 05/04/20 17:20 05/31/20 06:43 Omeprazole 20 Mg Capsule. PO 20 mg DAILY@0630 DEVONTE Administration Trazodone HCl 100 mg 05/01/20 21:00 05/19/20 20:52 Trazodone Hcl 100 Mg Tablet PO 100 mg BEDTIME DEVONTE Administration Vitamin D 25 mcg 04/22/20 09:00 05/31/20 08:53 Cholecalciferol (Vitamin D3) 25 Mcg Tablet PO 25 mcg DAILY DEVONTE Administration Allergies Allergies Allergy/AdvReac Type Severity Reaction Status Date / Time haloperidol [From HALDOL] Allergy Unknown UNKNOWN Verified 05/24/20 11:01 Helidac Allergy Unknown seizure Uncoded 07/28/19 00:00 and stiffness Assessment & Plan Assessment & Plan (1) Schizoaffective disorder, bipolar type: Status: Acute Code(s): F25.0 - Schizoaffective disorder, bipolar type Greater than 50% of the session was spent on counseling and/or coordination of care Reason for contiued inpatient stay Substantial Risk for: harm to self, inability to function, rapid decompensation and med/psych decompensation
[2020-05-31] MEDS: OLANZapine 10 MG TABLET 30 MG PO (20:54)
[2020-05-31] MEDS: Divalproex Sodium ER 500 MG TAB.ER.24H 1000 MG PO (20:54)
[2020-06-01 06:35] VITALS: BP 98/61; PULSE 64; RESP 16; TEMP 35.7; O2SAT 98
[2020-06-01] MEDS: Cholecalciferol (Vitamin D3) 25 MCG TABLET PO (08:35)
[2020-06-01] MEDS: Divalproex Sodium 250 MG TABLET.DR PO (08:35)
[2020-06-01 08:36] VITALS: BP 108/75; PULSE 81
[2020-06-01] MEDS: Metoprolol Tartrate 50 MG TABLET 25 MG PO ×2 (08:36→20:59)
[2020-06-01] MEDS: Docusate Sodium 100 MG CAPSULE PO ×2 (08:36→20:58)
[2020-06-01] MEDS: chlorproMAZINE HCl 25 MG TABLET PO ×3 (08:36→20:58)
[2020-06-01] MEDS: Mineral Oil/Petrolatum,White 106 GM Tube 1 APPL TOPICAL ×2 (08:38→20:59)
[2020-06-01] MEDS: Finasteride 5 MG TABLET PO (08:38)
[2020-06-01] MEDS: Omeprazole 20 MG CAPSULE.DR PO (08:42)
--- NOTE | 2020-06-01 14:08 | P.PNPSI_ITS ---
Subjective Subjective Date of Service: 06/01/20 Reason For Visit: Bipolar disorder Subjective Notes: Conditional Voluntary Interim History: Alert, talkative, articulation slowly improving. Pt discussed concern regarding his belongings at the apartment and asks if they can be delivered to the hospital. Told pt we could collaborate with his residence regarding this. Reports he feels well, reports he is sleeping well, eating and drinking well and denies pain or feeling over-medicated. Laughs when asked about safety, SI- stating no, never, not me . Asks about discharge on Saturday to a new apartment . Team is working on respite transfer with [facility] and [facility]. Medication Compliance: Yes Side effects from medications: No Attending Groups: No Review of Systems Review of Systems Yes all other systems are reviewed and are negative (denies) Psychiatric: Reports anxiety, Reports confusion (intermittent) and Reports suicidal ideation (denies) Mental Status Exam Mental Status Exam Patient Appearance: Appropriate Patient Orientation: Person, Place and Situation Level of Consciousness: Alert Patient Behavior: Appropriate, Talkative, Cooperative and Good Eye Contact Mood Description: Calm Affect Description: Calm Patient Cognition Impaired: Yes Ability to Follow Directions: Good Speech Pattern: Garbled, Spontaneous Speech and Soft-Spoken Memory Description: Episodic Impaired Hallucinations: None Delusions: Not Present Thought Process: Intact and Goal Oriented Thought Content: positive for Circumstantial Judgement: Fair Diagnostics Vital Signs (24Hr): Vital Signs - 24 hr 05/31/20 18:00 06/01/20 06:35 06/01/20 08:36 Temperature 96.8 F 96.3 F L Pulse Rate 71 64 81 Respiratory Rate 18 16 Blood Pressure 112/62 98/61 108/75 Pulse Oximetry 99 98 Body Mass Index 29.8 Labs Results: 05/18/20 10:03 05/18/20 10:04 Imaging Radiology Impressions: ITS Impressions Chest X-Ray 04/17/20 07:27 IMPRESSION: No acute cardiopulmonary findings Head CT 04/17/20 07:27 IMPRESSION: No acute intracranial findings. Sinus disease as described. Modified Barium Swallow 05/04/20 15:36 IMPRESSION: No significant abnormality identified on modified barium swallow. Please refer to speech pathology report for details. Chest X-Ray 05/05/20 19:15 IMPRESSION: No evidence for acute disease. Medications Medications Current Medications Generic Name Dose Route Start Last Admin Trade Name Cindi PRN Reason Stop Dose Admin Acetaminophen 650 mg 04/18/20 18:48 05/31/20 09:27 Acetaminophen 325 Mg Tablet PO 650 mg Q6H PRN Administration Headache/Pain Mild Scale (1-3) Al Hydroxide/Mg Hydroxide 30 ml 04/18/20 18:48 Magnesium Hydrox/Alum Hydrox 30 Ml Oral.Susp PO Q6H PRN Heartburn/Nausea Chlorpromazine HCl 25 mg 05/25/20 15:00 06/01/20 08:36 Chlorpromazine Hcl 25 Mg Tablet PO 25 mg TID DEVONTE Administration Divalproex Sodium 1,000 mg 04/17/20 21:00 05/31/20 20:54 Divalproex Sodium Er 500 Mg Tab.Er.24h PO 1,000 mg BEDTIME DEVONTE Administration Divalproex Sodium 250 mg 04/22/20 09:00 06/01/20 08:35 Divalproex Sodium 250 Mg Tablet. PO 250 mg DAILY DEVONTE Administration Docusate Sodium 100 mg 04/29/20 21:00 06/01/20 08:36 Docusate Sodium 100 Mg Capsule PO 100 mg BID DEVONTE Administration Finasteride 5 mg 04/17/20 14:00 06/01/20 08:38 Finasteride 5 Mg Tablet PO 5 mg DAILY DEVONTE Administration Magnesium Hydroxide 30 ml 04/18/20 18:48 05/20/20 18:28 Milk Of Magnesia 30 Ml Oral.Susp PO 30 ml DAILY PRN Administration Constipation Metoprolol Tartrate 25 mg 04/17/20 14:00 06/01/20 08:36 Metoprolol Tartrate 50 Mg Tablet PO 25 mg BID DEVONTE Administration Protocol Multi-Ingred Cream/Lotion/Oil/Oint 1 appl 05/15/20 10:40 06/01/20 08:38 Mineral Oil/Petrolatum,White 106 Gm Tube TOPICAL 1 appl BID DEVONTE Administration Olanzapine 5 mg 04/19/20 07:01 05/15/20 08:21 Olanzapine 5 Mg Tablet PO 5 mg Q4H PRN Administration Psychosis,blake Olanzapine 30 mg 05/19/20 21:00 05/31/20 20:54 Olanzapine 10 Mg Tablet PO 30 mg BEDTIME DEVONTE Administration Omeprazole 20 mg 05/04/20 17:20 06/01/20 08:42 Omeprazole 20 Mg Capsule. PO 20 mg DAILY@0630 DEVONTE Administration Trazodone HCl 100 mg 05/01/20 21:00 05/19/20 20:52 Trazodone Hcl 100 Mg Tablet PO 100 mg BEDTIME DEVONTE Administration Vitamin D 25 mcg 04/22/20 09:00 06/01/20 08:35 Cholecalciferol (Vitamin D3) 25 Mcg Tablet PO 25 mcg DAILY DEVONTE Administration Allergies Allergies Allergy/AdvReac Type Severity Reaction Status Date / Time haloperidol [From HALDOL] Allergy Unknown UNKNOWN Verified 05/24/20 11:01 Helidac Allergy Unknown seizure Uncoded 07/28/19 00:00 and stiffness Assessment & Plan Assessment & Plan (1) Schizoaffective disorder, bipolar type: Status: Acute Code(s): F25.0 - Schizoaffective disorder, bipolar type Greater than 50% of the session was spent on counseling and/or coordination of care Reason for contiued inpatient stay Substantial Risk for: stable for discharge
[2020-06-01 18:00] VITALS: BP 109/74; PULSE 71; RESP 18; TEMP 36.3; O2SAT 96
[2020-06-01] MEDS: Divalproex Sodium ER 500 MG TAB.ER.24H 1000 MG PO (20:58)
[2020-06-01] MEDS: OLANZapine 10 MG TABLET 30 MG PO (20:58)
[2020-06-01] MEDS: Milk of Magnesia 30 ML ORAL.SUSP PO (20:58)
[2020-06-01 20:59] VITALS: BP 130/69; PULSE 69
[2020-06-02 06:25] VITALS: BP 105/60; PULSE 73; RESP 16; TEMP 36.1; O2SAT 95
[2020-06-02 07:56] LABS: MANUAL DIFF FLAG NO
[2020-06-02 08:01] LABS: Basophils Percent Auto 0.6 % (0-2); Eosinophils Absolute Auto 0.2 X10*3/uL (0.0-0.4); Eosinophils Percent Auto 3.5 % (0-4); Hematocrit 38.9 % (42-52); Hemoglobin 12.4 g/dl (14.0-18.0); Imm Gran Abs Auto 0.02 X10*3/uL (0.00-0.03); Imm Gran Pct Auto 0.4 % (0.0-0.4); Lymphocytes Absolute Auto 1.8 X10*3/uL (1.2-4.9); Lymphocytes Percent Auto 32.5 % (20-40); Mean Corpuscular HGB Conc 31.9 g/dl (31.0-36.0); Mean Corpuscular Hemoglobin 30.6 pg (27.0-33.0); Mean Platelet Volume 9.5 fL (9.4-12.4); Monocytes Absolute Auto 0.5 X10*3/uL (0.1-1.2); Monocytes Percent Auto 8.6 % (2-11); Neutrophils Percent Auto 54.4 % (45-73); Platelet Count 161 X10*3/uL (160-400); Red Blood Count 4.05 X10*6/uL (4.60-5.80); Red Cell Distribution Width 13.6 % (11.0-16.0); White Blood Count 5.4 X10*3/uL (4.8-10.8)
[2020-06-02 08:27] LABS: Alanine Aminotransferase 41 U/L (0-40); Albumin Level 4.1 g/dL (3.5-5.0); Alkaline Phosphatase 59 U/L (39-117); Anion Gap 12 (12-20); Aspartate Amino Transferase 33 U/L (5-37); Bilirubin Total 0.5 mg/dL (0.0-1.0); Blood Urea Nitrogen 20 mg/dL (9-16); Calcium 8.9 mg/dL (8.4-10.2); Carbon Dioxide 29 mmol/L (22-29); Chloride 107 mmol/L (96-108); Creatinine Clr Calc Pharmacy 80.2; Estimated Glomerular Filt Rate > 60; Glucose Random 111 mg/dL (60-115); Potassium 4.5 mmol/L (3.3-5.1); Sodium 143 mmol/L (135-145); Total Protein 6.6 g/dL (6.5-8.0)
[2020-06-02 08:55] VITALS: BP 101/69; PULSE 79
[2020-06-02] MEDS: Finasteride 5 MG TABLET PO (08:55)
[2020-06-02] MEDS: Metoprolol Tartrate 50 MG TABLET 25 MG PO (08:55)
[2020-06-02] MEDS: Cholecalciferol (Vitamin D3) 25 MCG TABLET PO (08:55)
[2020-06-02] MEDS: Docusate Sodium 100 MG CAPSULE PO (08:55)
[2020-06-02] MEDS: Divalproex Sodium 250 MG TABLET.DR PO (08:56)
[2020-06-02] MEDS: chlorproMAZINE HCl 25 MG TABLET PO (08:56)
[2020-06-02] MEDS: Acetaminophen 325 MG TABLET 650 MG PO (08:56)
[2020-06-02] MEDS: Omeprazole 20 MG CAPSULE.DR PO (08:56)
[2020-06-02] MEDS: Mineral Oil/Petrolatum,White 106 GM Tube 1 APPL TOPICAL (09:00)
--- NOTE | 2020-06-02 09:00 | ECG_ITS ---
Test Reason : R/O QTC PROLONG Blood Pressure : / mmHG Vent. Rate : 067 BPM Atrial Rate : 067 BPM P-R Int : 154 ms QRS Dur : 148 ms QT Int : 422 ms P-R-T Axes : 049 -18 021 degrees QTc Int : 445 ms Normal sinus rhythm Right bundle branch block Cannot rule out Inferior infarct (cited on or before 17-DEC-2017) Abnormal ECG When compared with ECG of 09-MAY-2020 15:38, No significant change was found Referred By: Joya Ridley Electronically Signed By:COLBY PRUETT MD
--- NOTE | 2020-06-02 17:41 | PM.PSYDC ---
DS: Providers Provider Date of Service: 06/02/20 Date of admission: 04/18/20 18:49 Date of discharge: 06/02/20 Primary care physician: Angelo Higginbotham MD Admitting clinician: Joya Ridley Attending physician on admission: Victor Hugo Mckay Consults: 05/02/20 18:13 Consult to Gastroenterology Routine Consulting Provider: Jaguar Guerrero Reason for consultation: pt reports trouble swallowing; hx renal carcinoma Has provider been notified: No 05/03/20 07:00 Consult to Hospitalist Routine Consulting Provider: Hospitalist Reason For Exam: reported trouble swallowing; hx of renal cancer 05/03/20 12:41 Consult to Gastroenterology Routine Consulting Provider: Amilcar Elder Reason for consultation: hx esophageal stricture-swallowing difficulty Has provider been notified: No 05/13/20 17:59 Consult to Hematology / Oncology Routine Consulting Provider: Saan Carter Reason for consultation: anemia Has provider been notified: No 05/25/20 09:00 Consult to Neurology Routine Consulting Provider: [facility] Reason for consultation: Hx of renal, colon CA-psychosis not clearing, speech garbled thougts disorg Has provider been notified: No Attending physician on discharge: Victor Hugo Mckay Discharging clinician: Joya Ridley DS: Diagnosis Discharge Diagnosis (1) Schizoaffective disorder, bipolar type: Status: Acute Problem details: 60 yo male, to ER with police and EMS after being found in the street, wandering, agitated, self-dialoguing, argumentative and confused. Pt had been living in a skilled nursing under the care of [facility] and was in the process of a transition to an independent apartment. It was reported he had been toxic on [place] in March and was tapered from this agent, the last dose being 04/17/20 and this may have been the etiology of decompensation. Pt has a history of several in patient admissions. DS: Medications Discharge Medications Home Medications: Previous Rx's Medication Instructions Recorded benztropine 1 mg PO BID PRN #60 tab 06/01/20 chlorpromazine 25 mg PO TID #90 tab 06/01/20 cholecalciferol (vitamin D3) 25 mcg PO DAILY #30 tab 06/01/20 divalproex 250 mg PO DAILY #30 tab 06/01/20 divalproex [Depakote ER] 1,000 mg PO BEDTIME #60 tab 06/01/20 docusate sodium 100 mg PO BID #60 cap 06/01/20 finasteride 5 mg PO DAILY 90 Days #30 tab 06/01/20 metoprolol tartrate [Lopressor] 25 mg PO BID #60 tab 06/01/20 olanzapine 5 mg PO Q4H PRN #60 tab 06/01/20 olanzapine 30 mg PO BEDTIME #90 tab 06/01/20 omeprazole 20 mg PO DAILY@0630 #30 cap 06/01/20 white petrolatum-mineral oil 1 appl TOPICAL BID #2568 g 06/01/20 [Dermacerin] Discharge Plan Discharge Anticipated Discharge Date/Time: 06/02/20 16:00 Patient Disposition: Xfer to Respite Facility Referrals: [facility] [Other] (fax- [phone] re start care after D/C ) Trevor Enriquez ([facility]) [Other] Merced Mcmanus ([facility]) [Other] Dr. Wilkerson ([facility]) [Other] - 07/20/20 3:20 pm (Telehealth appointment) Sreekanth Davies (therapist) [Other] - 06/07/20 2:30 pm (Telehealth appointment) Angelo Higginbotham MD [Primary Care Provider] - 06/13/20 1:45 pm (in office) Discharge Medications: New chlorpromazine 25 mg Tablet 25 mg PO TID Qty: 90 RF: 0 divalproex 250 mg Tablet,Delayed Release (Dr/Ec) 250 mg PO DAILY Qty: 30 RF: 1 olanzapine 10 mg Tablet 30 mg PO BEDTIME Qty: 90 RF: 0 olanzapine 5 mg Tablet 5 mg PO Q4H PRN (Reason: Psychosis,blake) Qty: 60 RF: 1 docusate sodium 100 mg Capsule 100 mg PO BID Qty: 60 RF: 1 omeprazole 20 mg Capsule,Delayed Release(Dr/Ec) 20 mg PO DAILY@0630 Qty: 30 RF: 1 Dermacerin Cream 1 appl topical BID Qty: 2568 RF: 0 cholecalciferol (vitamin D3) 25 mcg (1,000 unit) Tablet 25 mcg PO DAILY Qty: 30 RF: 1 benztropine 1 mg tablet 1 mg PO BID PRN (Reason: extrapyramidal effects/symptoms) Qty: 60 RF: 0 Continued divalproex [Depakote ER] 500 mg Tablet Extended Release 24 Hr 1,000 mg PO BEDTIME Qty: 60 RF: 1 metoprolol tartrate [Lopressor] 50 mg Tablet 25 mg PO BID Qty: 60 RF: 1 finasteride 5 mg tablet 5 mg PO DAILY 90 Days Qty: 30 RF: 1 Discontinued trazodone 100 mg tablet 100 mg PO BEDTIME PRN (Reason: insomnia) RF: 0 olanzapine 10 mg tablet 10 mg PO BEDTIME RF: 0 Discharge Orders: Discharge Order (Routine); Ordered 06/02/20 Ordered By: Joya Ridley Diet: advance to usual diet Activity on Discharge: As tolerated Stand Alone Forms: Patient Portal Discharge page, Community Support Other Ambulatory Orders: Basic Metabolic Panel (Routine) Timeframe: 20200517 Facility: [facility] - Location: Laboratory Ordered By: Veena Hernandez Complete Blood Count Auto Diff (Routine) Timeframe: 20200517 Facility: [facility] - Location: Laboratory Ordered By: Veena Hernandez IRON PROFILE (Routine) Timeframe: 20200517 Facility: [facility] - Location: Laboratory Ordered By: Veena Hernandez Lactate Dehydrogenase (Routine) Timeframe: 20200517 Facility: [facility] - Location: Laboratory Ordered By: Veena Hernandez Reticulocyte Count (Routine) Timeframe: 20200517 Facility: [facility] - Location: Laboratory Ordered By: Veena Hernandez Care Plan Goals: Mood stability Medical stability Health Concerns: Schizoaffective Disorder, Bipolar type Anemia BPH Hx of renal and colon cancer Plan of Treatment: Transfer to respite to continue recovery and to transition into a skilled nursing setting. Call or return as needed. Updated diagnostics completed this week for pt labs/EKG Discharge Date/Time: 06/02/20 17:49 Mental Status Exam Mental Status Exam Patient Appearance: Appropriate Patient Orientation: Person, Place and Situation Level of Consciousness: Alert Patient Behavior: Appropriate, Talkative and Cooperative Mood Description: Cheerful Affect Description: Flat Patient Cognition Impaired: Yes Ability to Follow Directions: Good Speech Pattern: Garbled (at times), Spontaneous Speech, Rambling (at times) and Soft-Spoken Memory Description: Episodic Impaired Hallucinations: None Delusions: Not Present Thought Process: Distracted Thought Content: positive for Tangential Judgement: Fair Data Data Completed and Pending Completed studies during hospitalization [Text1]: 05/26/20 05/30/20 05/30/20 18:55 07:52 07:52 WBC RBC Hgb Hct MCV MCH MCHC RDW Plt Count MPV Immature Gran % (Auto) Neut % (Auto) Lymph % (Auto) [place] % (Auto) Eos % (Auto) Baso % (Auto) Lymph # (Auto) [place] # (Auto) Eos # (Auto) Baso # (Auto) Abs Immat Gran (auto) Absolute Neuts (auto) Absolute Nucleated RBC Nucleated RBC % (auto) Sodium Potassium Chloride Carbon Dioxide Anion Gap BUN Creatinine Estim Creat Clear Calc Estimated GFR Random Glucose Estimat Average Glucose 126 126 Hemoglobin A1c % 6.0 6.0 Calcium Total Bilirubin AST ALT Alkaline Phosphatase Total Protein Albumin Valproic Acid 69.0 06/02/20 06/02/20 07:37 07:39 WBC 5.4 RBC 4.05 L Hgb 12.4 L Hct 38.9 L MCV 96.0 MCH 30.6 MCHC 31.9 RDW 13.6 Plt Count 161 MPV 9.5 Immature Gran % (Auto) 0.4 Neut % (Auto) 54.4 Lymph % (Auto) 32.5 [place] % (Auto) 8.6 Eos % (Auto) 3.5 Baso % (Auto) 0.6 Lymph # (Auto) 1.8 [place] # (Auto) 0.5 Eos # (Auto) 0.2 Baso # (Auto) 0.0 Abs Immat Gran (auto) 0.02 Absolute Neuts (auto) 3.0 Absolute Nucleated RBC 0.000 Nucleated RBC % (auto) 0.0 Sodium 143 Potassium 4.5 Chloride 107 Carbon Dioxide 29 Anion Gap 12 BUN 20 H D Creatinine 1.04 Estim Creat Clear Calc 80.2 Estimated GFR > 60 Random Glucose 111 Estimat Average Glucose Hemoglobin A1c % Calcium 8.9 Total Bilirubin 0.5 AST 33 ALT 41 H Alkaline Phosphatase 59 Total Protein 6.6 Albumin 4.1 Valproic Acid Imaging Diagnostic Imaging Impressions Chest X-Ray 04/17/20 07:27 IMPRESSION: No acute cardiopulmonary findings Head CT 04/17/20 07:27 IMPRESSION: No acute intracranial findings. Sinus disease as described. Modified Barium Swallow 05/04/20 15:36 IMPRESSION: No significant abnormality identified on modified barium swallow. Please refer to speech pathology report for details. Chest X-Ray 05/05/20 19:15 IMPRESSION: No evidence for acute disease. DS: Summary Hospital Course Hospital Course: Pt was admitted on conditional voluntary signed by his sister and health care proxy. He had a very long admission, 04/18/20 - 06/02/20 as there were several medical issues to factor in to have a positive outcome and not jeopardize physical health. Pt presented with severe symptoms of blake and psychosis, extreme disorganization and incoherent speech for much of the admission. He was cooperative for most of his admission, however his lack of modulation, manic behaviors and disorganization of thought process and content warranted psychiatric intensive care mgt throughout most of the admssion.The nursing and social service teams worked very closely with him to assist him in recovering from this episode. By history, Yomi has anemia, BPH, renal carcinoma in 2018, colon carcinoma in 2011 and severe encephalopathy in 2019. During the admission he was seen by GI service due to swallow difficulties and hx of esophageal stricuture- a modified barium swallow was negative, Speech services for swallow eval-it was advised for pt to have chopped advance solids, NDD3, thin liquids, meds with puree or soft foods. Hematology consult for chronic anemia in consideration of medication regime and neuro consult for pt's history of encephalopathy. CAT Head was WNL. During the admission, Olanzapine and Valproate were carefully titrated as they were initiated in community prior to admission. [place] was re-trialed as family and residential team reported that this was the agent that helped pt significantly and provided a much improved quality of life. Unfortunately, a titration and trial to equal the previous 900 mg daily contributed to symptom intensity and exacerbation. As a result it was tapered and discontinued. Risperdal augmentation was trialed without effect. Chlorpromazine trial was slowly introduced and titrated with tolerance and reasonable effect. With time, intense nursing and social service care and careful titration of medications, pt slowly recompensated over this time and was able to discharge to a [facility] respite bed for further monitoring for transition back into the community. Time spent discussing smoking cessation with patient: 3 to 10 minutes Status at Discharge Cognitive/behavioral status at discharge: alert, oriented, non-suicidal, mildly tangential, mood stable, no evidence of psychosis. Functional status at discharge: independent ambulation Overall status at discharge: patient is progressing back to baseline Time Spent with Patient Time attestation: Total time spent providing and/or coordinating discharge services: 40 Time spent: Greater than 30 minutes
== END 2020-06-02 17:49 | DRG 885 ==
LOC: HO.ED 04-18 18:47 → HO.PM5 04-18 19:01
PROVIDERS: Internal Medicine; Psychiatry & Neurology Psychiatry; Admitting Provider Psychiatry & Neurology Psychiatry; Emergency Provider Emergency Medicine; PCP Internal Medicine; Visit Provider Clinical Nurse Specialist Psychiatric/Mental Health, Adult
DX: F25.0 Schizoaffective disorder, bipolar type (principal); N13.8 Other obstructive and reflux uropathy; R13.12 Dysphagia, oropharyngeal phase; D64.9 Anemia, unspecified; N40.1 Benign prostatic hyperplasia with lower urinary tract symptoms; Z85.038 Personal history of other malignant neoplasm of large intestine; Z85.528 Personal history of other malignant neoplasm of kidney; Z23 Encounter for immunization; Z20.822 Contact with and (suspected) exposure to COVID-19; Z79.899 Other long term (current) drug therapy
CPT/HCPCS: 0241U; 36415; 70450; 71045; 74230; 80048; 80051; 80053; 80061; 80076; 80164; 80178; 80307; 80320; 81003; 82140; 82306; 82565; 82607; 82746; 82947; 83036; 83540; 83615; 83690; 83735; 83880; 84443; 84484; 84520; 85025; 87635; 90686; 92610; 92611; 93005; 99285

== ENCOUNTER 2020-09-09 10:13 | Outpatient (REF) | payer OTHER, SELFPAY ==
[2020-09-09 11:29] LABS: PSA,Total (Free>4and<10) 1.06 ng/mL (0.00-4.00)
== END 2020-09-09 10:14 | disposition home or self-care (01) ==
LOC: HO.LNP 10:13
PROVIDERS: Visit Provider Internal Medicine
DX: R97.20 Elevated prostate specific antigen [PSA] (principal)
CPT/HCPCS: 84153

== ENCOUNTER 2020-11-22 11:40 | Outpatient (REF) | payer OTHER, SELFPAY ==
[2020-11-22 11:44] LABS: MANUAL DIFF FLAG NO
[2020-11-22 11:56] LABS: Basophils Percent Auto 0.7 % (0-2); Eosinophils Absolute Auto 0.2 X10*3/uL (0.0-0.4); Eosinophils Percent Auto 3.1 % (0-4); Hematocrit 39.7 % (42-52); Hemoglobin 12.6 g/dl (14.0-18.0); Imm Gran Abs Auto 0.01 X10*3/uL (0.00-0.03); Imm Gran Pct Auto 0.2 % (0.0-0.4); Lymphocytes Absolute Auto 2.1 X10*3/uL (1.2-4.9); Lymphocytes Percent Auto 38.2 % (20-40); Mean Corpuscular HGB Conc 31.7 g/dl (31.0-36.0); Mean Corpuscular Hemoglobin 30.3 pg (27.0-33.0); Mean Corpuscular Volume 95.4 fL (80-98); Mean Platelet Volume 10.3 fL (9.4-12.4); Monocytes Absolute Auto 0.6 X10*3/uL (0.1-1.2); Monocytes Percent Auto 11.2 % (2-11); Neutrophils Absolute Auto 2.6 X10*3/uL (2.0-8.3); Neutrophils Percent Auto 46.6 % (45-73); Platelet Count 141 X10*3/uL (160-400); Red Blood Count 4.16 X10*6/uL (4.60-5.80); Red Cell Distribution Width 14.7 % (11.0-16.0); White Blood Count 5.5 X10*3/uL (4.8-10.8)
[2020-11-22 12:43] LABS: Appearance Urine CLEAR; Color Urine YELLOW; Glucose Urine UA NEG (NEG); Leukocyte Esterase Urine NEG (NEG); Nitrite Urine NEG (NEG); PH 6.5 (5.0-8.0); Specific Gravity - Urine <= 1.005 (1.005-1.025); Urine Blood NEG (NEG); Urine Ketones NEG (NEG); Urine Protein NEG (NEG-TRACE)
[2020-11-22 12:44] LABS: PSA,Total (Free>4and<10) 0.85 ng/mL (0.00-4.00); Vitamin D 25-OH Total 46.4 ng/mL (>30)
[2020-11-22 12:50] LABS: Creatinine Urine 73.31 mg/dL; Microalbumin Urine < 5.0 mg/L
[2020-11-22 13:01] LABS: Alanine Aminotransferase 33 U/L (0-40); Alkaline Phosphatase 44 U/L (39-117); Anion Gap 14 (12-20); Aspartate Amino Transferase 24 U/L (5-37); Bilirubin Total 0.5 mg/dL (0.0-1.0); Blood Urea Nitrogen 11 mg/dL (9-16); Calcium 9.8 mg/dL (8.4-10.2); Carbon Dioxide 26 mmol/L (22-29); Chloride 108 mmol/L (96-108); Cholesterol 150 mg/dL; Estimated Glomerular Filt Rate > 60; Glucose Fasting 86 mg/dL (60-99); HDL Cholesterol 40 mg/dL; Iron 105 mcg/dL (45-160); LDL Cholesterol Calculated 81 mg/dl; Percent Iron Saturation 33 % (15-50); Sodium 144 mmol/L (135-145); Total Iron Binding Capacity 323 mcg/dL (228-428); Total Protein 6.4 g/dL (6.5-8.0); Triglycerides 148 mg/dL; Unsaturated Iron Binding 218 ug/dL
[2020-11-22 13:24] LABS: Estimated Average Glucose 108 mg/dL; Hemoglobin A1C 120.0273 umol/L; Hemoglobin A1c % 5.4 %
== END 2020-11-22 11:41 | disposition home or self-care (01) ==
LOC: HO.LNP 11:40
PROVIDERS: Visit Provider Internal Medicine
DX: R97.20 Elevated prostate specific antigen [PSA] (principal); D72.820 Lymphocytosis (symptomatic); E61.1 Iron deficiency; R73.03 Prediabetes; E83.52 Hypercalcemia; E78.00 Pure hypercholesterolemia, unspecified; E55.9 Vitamin D deficiency, unspecified
CPT/HCPCS: 80053; 80061; 81003; 82043; 82306; 83036; 83540; 84153; 85025

== ENCOUNTER 2020-11-29 08:28 | Outpatient (REF) | payer OTHER, SELFPAY ==
--- NOTE | ~2020-11-29 | CT_ITS ---
EXAMINATION: CT ABDOMEN AND PELVIS WITHOUT AND WITH CONTRAST CLINICAL INFORMATION: Malignant neoplasm of the kidney. COMPARISON: Renal ultrasound performed today. Chest x-ray 04/17/2020. CT abdomen/pelvis 04/02/2019. TECHNIQUE: Multidetector volumetric imaging was performed of the abdomen and pelvis before and after the IV administration of 100 mL of Omnipaque 300 intravenous contrast. Sagittal and coronal reformatted images were obtained on the technologist's workstation. This CT examination was performed using dose optimization techniques as appropriate, variously including the following: *Automated exposure control *Adjustment of mA and/or kV according to patient size (this includes techniques or standardized protocols for targeted exams where dose is matched to indication/reason for exam; i.e. extremities or head) *Use of iterative reconstruction technique DLP: 687 mGy-cm FINDINGS: LUNG BASES: There are bibasilar minimal atelectatic changes. The heart size is normal. LIVER, GALLBLADDER, AND BILIARY TREE: The liver is normal in size, shape, and attenuation. No focal hepatic lesion or biliary ductal dilatation is present. The gallbladder is unremarkable with no evidence of radiopaque gallstones, gallbladder wall thickening, or obvious pericholecystic inflammatory changes. PANCREAS: Unremarkable. SPLEEN: Unremarkable. ADRENAL GLANDS: Unremarkable. KIDNEYS AND URETERS: The kidneys are normal in size, shape, and attenuation. No hydronephrosis, hydroureter, or calculi seen. There is bilateral perinephric stranding. There are cryoablation changes to the right kidney from previous CT history. No recurrent lesion or mass seen. There are likely tiny hypodensities, probable cyst bilaterally. BLADDER: The bladder is nondistended with a prominent urachal ligament present along the anterior superior bladder. GASTROINTESTINAL TRACT: There is moderate stool and gas seen throughout the colon without any significant distention. The small bowel loops are normal caliber. The appendix is not visualized. ABDOMINAL WALL: A small umbilical hernia containing fat is noted. LYMPH NODES: Normal. VASCULAR: Unremarkable. PELVIC VISCERA: The prostate gland is normal size. The periprostatic fat planes are preserved. A prominent left inguinal canal containing fat and prominent vessels are noted. OSSEOUS STRUCTURES: No lytic or sclerotic process is seen. There is mild ventral spondylosis lower dorsal and upper lumbar spine. CT/CT abdomen pelvis wo/w con IMPRESSION: [id number] constipation. History of previous right kidney cryoablation. No enhancing mass, radiopaque calculi or hydronephrosis seen. There are punctate hypodensities, likely cortical cysts. No abnormal size retroperitoneal lymph nodes.
--- NOTE | ~2020-11-29 | US_ITS ---
EXAMINATION: US RETROPERITONEAL LIMITED (RENAL ONLY) CLINICAL INFORMATION: Malignant neoplasm of unspecified kidney, except renal pelvis. COMPARISON: Renal ultrasound 01/20/2020 and 07/22/2019. CT abdomen 04/02/2019. TECHNIQUE: Real-time imaging of the kidneys. FINDINGS: RIGHT KIDNEY: 10.5 x 5.1 x 5.5 cm (SAG x AP x TRV). The kidney is normal in size, contour, and echogenicity. Renal cortical thickness is normal. No renal calculi or hydronephrosis. There is a small echogenic lesion midpole right kidney measuring 0.6 x 0 0.5 to 0.6 cm. LEFT KIDNEY: 11.6 x 7.0 x 6.0 cm (SAG x AP x TRV). The kidney is normal in size, contour, and echogenicity. Renal cortical thickness is normal. No calculi or focal parenchymal lesions. No hydronephrosis. US/US renal BI IMPRESSION: Echogenic lesion midpole right kidney likely previous cryoablation changes, less likely underlying angiomyolipoma.
[2020-11-29] MEDS: iohexoL 350 MG/ML 100 ML INFUS..BTL IV (10:13)
== END 2020-11-29 08:29 | disposition home or self-care (01) ==
LOC: HO.CT 08:28
PROVIDERS: PCP Internal Medicine; Visit Provider Internal Medicine
DX: C64.9 Malignant neoplasm of unspecified kidney, except renal pelvis (principal)
CPT/HCPCS: 74178; 76775; Q9967

== ENCOUNTER → 2021-07-04 15:02 | Outpatient (BNVA) | payer OTHER, SELFPAY | PROVIDERS: PCP Internal Medicine; Visit Provider Urology | DX: N40.1 Benign prostatic hyperplasia with lower urinary tract symptoms (principal); N13.8 Other obstructive and reflux uropathy; C64.9 Malignant neoplasm of unspecified kidney, except renal pelvis | CPT/HCPCS: 99212 ==

== ENCOUNTER 2021-10-04 11:55 | Outpatient (REF) | payer OTHER, SELFPAY ==
[2021-10-04 13:34] LABS: Appearance Urine CLEAR; Color Urine STRAW; Glucose Urine UA 100 MG/DL (NEG); Leukocyte Esterase Urine NEG (NEG); Nitrite Urine NEG (NEG); PH 6.5 (5.0-8.0); Specific Gravity - Urine <= 1.005 (1.005-1.025); Urine Blood NEG (NEG); Urine Ketones NEG (NEG); Urine Protein NEG (NEG-TRACE)
[2021-10-04 13:45] LABS: RBC Urine 0 /HPF (0); WBC Urine 0-2 /HPF (0-4)
== END 2021-10-04 11:56 | disposition home or self-care (01) ==
LOC: HO.LNP 11:55
PROVIDERS: Visit Provider Internal Medicine
DX: R35.0 Frequency of micturition (principal)
CPT/HCPCS: 81001; 87086

== ENCOUNTER 2021-11-28 11:08 | Outpatient (REF) | payer OTHER, SELFPAY ==
[2021-11-28 12:09] LABS: Appearance Urine Clear; Color Urine Yellow; Glucose Urine UA Negative (Negative); Leukocyte Esterase Urine Negative (Negative); Nitrite Urine Negative (Negative); PH 6.5 (5.0-9.0); Urine Blood Negative (Negative); Urine Ketones Negative (Negative); Urine Protein Negative (Neg-Trace)
[2021-11-28 12:10] LABS: Basophils Percent Auto 0.5 % (0-2); Eosinophils Absolute Auto 0.2 X10*3/uL (0.0-0.4); Hemoglobin 13.3 g/dl (14.0-18.0); Mean Platelet Volume 9.8 fL (9.4-12.4); PLT CLUMP 1; Red Cell Distribution Width 14.7 % (11.0-16.0); SCAN SMEAR FLAG 1
[2021-11-28 12:11] LABS: Eosinophils Percent Auto 2.4 % (0-4); Imm Gran Abs Auto 0.03 X10*3/uL (0.00-0.03); Imm Gran Pct Auto 0.5 % (0.0-0.4); Lymphocytes Absolute Auto 2.9 X10*3/uL (1.2-4.9); Lymphocytes Percent Auto 47.3 % (20-40); Mean Corpuscular HGB Conc 32.4 g/dl (31.0-36.0); Mean Corpuscular Hemoglobin 29.8 pg (27.0-33.0); Mean Corpuscular Volume 91.7 fL (80.0-98.0); Monocytes Absolute Auto 0.6 X10*3/uL (0.1-1.2); Monocytes Percent Auto 9.3 % (2-11); Neutrophils Absolute Auto 2.5 x10*3/uL (2.0-8.3); Red Blood Count 4.47 X10*6/uL (4.60-5.80)
[2021-11-28 12:16] LABS: MANUAL DIFF FLAG NO; Platelet Count 129 X10*3/uL (160-400); White Blood Count 6.1 X10*3/uL (4.8-10.8)
[2021-11-28 12:19] LABS: Alanine Aminotransferase 46 U/L (0-40); Albumin Level 3.9 g/dL (3.5-5.0); Alkaline Phosphatase 43 U/L (39-117); Anion Gap 14 (12-20); Aspartate Amino Transferase 35 U/L (5-37); Bilirubin Total 0.6 mg/dL (0.0-1.0); Blood Urea Nitrogen 11 mg/dL (9-16); Calcium 9.4 mg/dL (8.4-10.2); Carbon Dioxide 28 mmol/L (22-29); Chloride 107 mmol/L (96-108); Cholesterol 142 mg/dL; Estimated Glomerular Filt Rate > 60; Glucose Fasting 91 mg/dL (60-99); HDL Cholesterol 38 mg/dL; LDL Cholesterol Calculated 86 mg/dl; Potassium 3.8 mmol/L (3.3-5.1); Sodium 145 mmol/L (135-145); Total Protein 6.6 g/dL (6.5-8.0); Triglycerides 93 mg/dL
[2021-11-28 12:31] LABS: Bacteria Urine None Seen (None Seen); Hyaline Casts Urine 0-2 /LPF (0-2); RBC Urine 0-2 /HPF (0-2); Squamous Epithelial Cell Urine 0-2 /HPF (0-2); WBC Urine 0-5 /HPF (0-5)
[2021-11-28 12:43] LABS: PSA,Total (Free>4and<10) 0.93 ng/mL (0.00-4.00); Vitamin D 25-OH Total 45.4 ng/mL (>30)
== END 2021-11-28 11:09 | disposition home or self-care (01) ==
LOC: HO.LNP 11:08
PROVIDERS: Visit Provider Internal Medicine
DX: Z00.00 Encounter for general adult medical examination without abnormal findings (principal); Z12.5 Encounter for screening for malignant neoplasm of prostate; D72.820 Lymphocytosis (symptomatic); E78.00 Pure hypercholesterolemia, unspecified; N40.0 Benign prostatic hyperplasia without lower urinary tract symptoms; K76.0 Fatty (change of) liver, not elsewhere classified; E55.9 Vitamin D deficiency, unspecified
CPT/HCPCS: 80053; 80061; 81001; 82306; 84153; 85025

== ENCOUNTER 2021-12-28 10:34 | Outpatient (REF) | payer OTHER, SELFPAY ==
[2021-12-28 10:36] LABS: MANUAL DIFF FLAG NO
[2021-12-28 11:39] LABS: Basophils Percent Auto 0.5 % (0-2); Eosinophils Absolute Auto 0.2 X10*3/uL (0.0-0.4); Eosinophils Percent Auto 2.6 % (0-4); Hematocrit 40.3 % (42.0-52.0); Hemoglobin 12.8 g/dl (14.0-18.0); Imm Gran Abs Auto 0.02 X10*3/uL (0.00-0.03); Imm Gran Pct Auto 0.3 % (0.0-0.4); Mean Corpuscular HGB Conc 31.8 g/dl (31.0-36.0); Mean Corpuscular Hemoglobin 29.8 pg (27.0-33.0); Mean Corpuscular Volume 93.9 fL (80.0-98.0); Mean Platelet Volume 9.9 fL (9.4-12.4); Monocytes Absolute Auto 0.7 X10*3/uL (0.1-1.2); Monocytes Percent Auto 12.1 % (2-11); Neutrophils Absolute Auto 2.2 x10*3/uL (2.0-8.3); Neutrophils Percent Auto 35.5 % (45-73); Platelet Count 138 X10*3/uL (160-400); Red Blood Count 4.29 X10*6/uL (4.60-5.80); Red Cell Distribution Width 14.9 % (11.0-16.0); White Blood Count 6.1 X10*3/uL (4.8-10.8)
== END 2021-12-28 10:35 | disposition home or self-care (01) ==
LOC: HO.LNP 10:34
PROVIDERS: Visit Provider Internal Medicine
DX: D72.820 Lymphocytosis (symptomatic) (principal)
CPT/HCPCS: 85025

== ENCOUNTER 2022-01-03 10:00 | Outpatient (RCR) | payer OTHER, SELFPAY ==
[2021-09-25 14:02] VITALS: BP 128/84
== END 2022-01-03 13:57 | disposition home or self-care (01) ==
LOC: HO.PT 10:00
PROVIDERS: Visit Provider Psychiatry & Neurology Neurology
DX: D49.9 Neoplasm of unspecified behavior of unspecified site (principal); G13.0 Paraneoplastic neuromyopathy and neuropathy
CPT/HCPCS: 97110; 97112; 97162

== ENCOUNTER 2022-01-26 09:38 | Outpatient (REF) | payer OTHER, SELFPAY ==
--- NOTE | ~2022-01-26 | US_ITS ---
EXAMINATION: US RETROPERITONEAL LIMITED (RENAL ONLY) CLINICAL INFORMATION: Malignant neoplasm of unspecified kidney, except renal pelvis. COMPARISON: Renal ultrasound 11/29/2020 and 01/20/2020. CT abdomen and pelvis 11/29/2020. TECHNIQUE: Real-time imaging of the kidneys. FINDINGS: RIGHT KIDNEY: 11.6 x 5.1 x 5.7 cm (SAG x AP x TRV). The kidney is normal in size, contour, and echogenicity. Renal cortical thickness is normal. No renal calculi or hydronephrosis. There is 0.7 x 0.7 x 0.7cm hyperechoic well defined lesion in the mid pole. LEFT KIDNEY: 10.6 x 6.1 x 5.8 cm (SAG x AP x TRV). The kidney is normal in size, contour, and echogenicity. Renal cortical thickness is normal. No calculi or focal parenchymal lesions. No hydronephrosis. US/US renal BI IMPRESSION: 0.7 cm hyperechoic well defined lesion in the mid pole of the right kidney corresponds to an area of scarring on the prior CT.
== END 2022-01-26 09:39 | disposition home or self-care (01) ==
LOC: HO.US 09:38
PROVIDERS: Visit Provider Urology
DX: C64.9 Malignant neoplasm of unspecified kidney, except renal pelvis (principal)
CPT/HCPCS: 76775

== ENCOUNTER → 2022-01-30 14:41 | Outpatient (BNVA) | payer OTHER, SELFPAY | PROVIDERS: PCP Internal Medicine; Visit Provider Urology | DX: C64.9 Malignant neoplasm of unspecified kidney, except renal pelvis (principal); N40.1 Benign prostatic hyperplasia with lower urinary tract symptoms; N13.8 Other obstructive and reflux uropathy | CPT/HCPCS: 99212 ==

== ENCOUNTER 2022-06-15 11:37 | Outpatient (REF) | payer OTHER, SELFPAY ==
[2022-06-15 11:40] LABS: MANUAL DIFF FLAG NO
[2022-06-15 12:22] LABS: Basophils Percent Auto 0.6 % (0-2); Eosinophils Absolute Auto 0.2 X10*3/uL (0.0-0.4); Eosinophils Percent Auto 3.2 % (0-4); Hematocrit 40.8 % (42.0-52.0); Imm Gran Abs Auto 0.02 X10*3/uL (0.00-0.03); Imm Gran Pct Auto 0.3 % (0.0-0.4); Lymphocytes Absolute Auto 2.6 X10*3/uL (1.2-4.9); Lymphocytes Percent Auto 40.5 % (20-40); Mean Corpuscular HGB Conc 31.9 g/dl (31.0-36.0); Mean Corpuscular Volume 94.2 fL (80.0-98.0); Mean Platelet Volume 9.8 fL (9.4-12.4); Monocytes Absolute Auto 0.7 X10*3/uL (0.1-1.2); Monocytes Percent Auto 10.6 % (2-11); Neutrophils Absolute Auto 2.8 x10*3/uL (2.0-8.3); Neutrophils Percent Auto 44.8 % (45-73); Platelet Count 140 X10*3/uL (160-400); Red Blood Count 4.33 X10*6/uL (4.60-5.80); Red Cell Distribution Width 14.2 % (11.0-16.0); White Blood Count 6.3 X10*3/uL (4.8-10.8)
== END 2022-06-15 11:38 | disposition home or self-care (01) ==
LOC: HO.LNP 11:37
PROVIDERS: Visit Provider Internal Medicine
DX: D72.820 Lymphocytosis (symptomatic) (principal)
CPT/HCPCS: 85025

== ENCOUNTER 2022-08-09 08:07 | Outpatient (REF) | payer OTHER, SELFPAY ==
[2022-08-09 08:56] LABS: Blood Urea Nitrogen 16 mg/dL (9-16); Estimated Glomerular Filt Rate > 60
== END 2022-08-09 08:08 | disposition home or self-care (01) ==
LOC: HO.LAB 08:07
PROVIDERS: PCP Internal Medicine; Visit Provider Urology
DX: C64.9 Malignant neoplasm of unspecified kidney, except renal pelvis (principal)
CPT/HCPCS: 36415; 82565; 84520

== ENCOUNTER 2022-08-17 09:38 | Outpatient (REF) | payer OTHER, SELFPAY ==
--- NOTE | ~2022-08-17 | CT_ITS ---
EXAMINATION: CT ABDOMEN WITHOUT AND WITH CONTRAST CLINICAL INFORMATION: Kidney cancer. History of right renal cryoablation November 2017 COMPARISON: Previous CT of the abdomen and pelvis November 2020 and renal ultrasound January 2022 TECHNIQUE: Contiguous axial thin section helical images of the abdomen were performed before and after the administration of oral contrast and 85 mL of Omnipaque 350 intravenous contrast. The data set was reformatted in the coronal and sagittal planes and reviewed on an independent workstation. This CT examination was performed using dose optimization techniques as appropriate, variously including the following: *Automated exposure control *Adjustment of mA and/or kV according to patient size (this includes techniques or standardized protocols for targeted exams where dose is matched to indication/reason for exam; i.e. extremities or head) *Use of iterative reconstruction technique DLP: 552 mGy-cm FINDINGS: LUNG BASES: Subsegmental atelectasis at the lung bases LIVER, GALLBLADDER, AND BILIARY TREE: The liver is normal. The gallbladder is contracted. No biliary duct dilatation. PANCREAS: Normal SPLEEN: Normal ADRENAL GLANDS AND KIDNEYS: There is area of cortical thinning or scarring and decreased enhancement in the posterior medial upper to mid pole of the right kidney and some stranding of the adjacent perinephric fat example axial image 74 order 79 series 4 compatible with post cryoablation changes. This is decreased in size from most recent CT from November 2020. No residual mass. There is a tiny stable 4 mm low-attenuation lesion in the posterior upper pole of the right kidney axial image 68 series 4. This is difficult to accurately characterize due to small size but probably represents a small cyst. The left kidney and adrenal glands are normal. BOWEL LOOPS: Stool in the colon suggestive of constipation. Postsurgical changes to the distal transverse colon/splenic flexure. Visualized bowel is otherwise unremarkable. The appendix is slightly enlarged measuring 1.1 cm in length. There is question of some wall thickening of the appendix. There is a oral contrast and are seen in the appendix and the periappendiceal fat is normal without inflammatory changes or fluid. Correlation with clinical findings recommended. LYMPH NODES: Normal. VASCULAR: There is an IVC filter that appears unchanged. The abdominal aorta is normal in caliber. The renal veins and IVC are patent. Small umbilical hernia containing fat. BONES: Degenerative changes of the spine. CT/CT abdomen wo/w IV con IMPRESSION: 1. Post cryoablation changes to the right kidney. No residual mass seen. Stable tiny 4 mm low-attenuation lesion in the posterior upper pole of the right kidney difficult to accurately characterize due to small size but probably representing a small cyst. 2. Slightly enlarged appendix and question wall thickening of the appendix. Correlation with clinical findings recommended. Stool in the colon suggestive of constipation. Postsurgical changes to the distal transverse colon/splenic flexure. Fleischner guidelines were followed.
[2022-08-17] MEDS: iohexoL 350 MG/ML 100 ML INFUS..BTL IV (11:05)
== END 2022-08-17 09:39 | disposition home or self-care (01) ==
LOC: HO.CT 09:38
PROVIDERS: PCP Internal Medicine; Visit Provider Urology
DX: C64.9 Malignant neoplasm of unspecified kidney, except renal pelvis (principal)
CPT/HCPCS: 74170; Q9967

== ENCOUNTER 2022-10-16 12:57 | Outpatient (AMB) | payer OTHER, SELFPAY ==
--- NOTE | 2022-10-16 13:00 | A.OFFVIS_ITS ---
Intake Intake Visit Reasons: 6m follow up/CT(set) Intake Note: Patient is present for Follow Up CT Scan Urology Med:Finasteride Antibiotic Allergy: None Blood Thinner: None Pharmacy: [place] Allergies haloperidol [From HALDOL] Allergy (Unknown, Verified 10/16/22 13:00) UNKNOWN Helidac Allergy (Unknown, Uncoded 10/16/22 13:00) seizure and stiffness Medication List - Last Reconciled 10/16/22 by Chriss Pham MD benztropine 1 mg PO BID PRN chlorpromazine 25 mg PO TID cholecalciferol (vitamin D3) 25 mcg PO DAILY cholecalciferol (vitamin D3) (Vitamin D3) 25 mcg PO DAILY divalproex 250 mg PO DAILY divalproex ER (Depakote ER) 1,000 mg (2 x 500 mg) PO BEDTIME docusate sodium 100 mg PO BID finasteride 5 mg PO DAILY 90 days metoprolol tartrate (Lopressor) 25 mg (1/2 x 50 mg) PO BID metoprolol tartrate 25 mg PO BID olanzapine 5 mg PO Q4H PRN olanzapine 30 mg (3 x 10 mg) PO BEDTIME omeprazole 20 mg PO DAILY@0630 white petrolatum-mineral oil (Dermacerin topical cream) 1 appl topical BID HPI HPI Comments History of Present Illness Details Yomi is a pleasant male. He is a patient of Dr. Higginbotham. He is seen for the following urologic reasons - renal cancer - lower urinary tract symptoms Accompanied by social worker masters Doing well with finasteride Minimal issues with nocturia Is time to check with abdominal CT for stability of renal area and prior cryotherapy that had been performed December 2017 Renal cancer - underwent cryotherapy December 2017 The renal mass was diagnosed incidentally, during evaluation for, back pain - had presented with paraneoplastic syndrome and increased psych symptoms Imaging included 07/03 , a CT (computed tomography) scan of the abdomen/pelvis with contrast - enhancing 2.4cm cortical lesion on the right side 07/04 , a renal ultrasound normal 07/05 , a renal ultrasound - stable, 01/04 renal ultrasound stable - 12/06 CT scan with stable evidence of cryotherapy area on right kidney - 10/07 CT scan with continued good evidence of cryotherapy on region of right kidney no further scan require Prior treatment(s) included 01/02 , cryotherapy. Staging of initial cancer T1a. Planned therapeutic plan further surveillance with imaging and laboratory investigations appropriate for pathology findings and patient performance status. Lower Urinary Tract Symptoms: Rise in PSA Mild symptoms Current therapy finasteride Current visit is for further evaluation of, lower urinary tract symptoms. Current treatment includes medication - none. Prostate Symptom Score Moderate (9-19), Bother 3. Symptoms include frequency, weak stream, nocturia (>2), and are progressing. PSA January 2016 6, April 2016 4.3, September 2016 3.2 - 01/04 4.9, 12/06 0.85, 12/07 0.9 Prostate volume 30-50gm. psychiatric diagnosis Yes Long-term lithium with anti cholinergic side effects PFSH Medical History Anemia Chronic headaches Colon cancer Depression Encephalopathy Esophageal stricture GERD (gastroesophageal reflux disease) Hernia HTN (hypertension) Hyperammonemia Paraneoplastic syndrome Renal cell carcinoma Schizoaffective disorder, bipolar type Schizophrenia Seizure Syncope Surgical History H/O hemicolectomy Social History Household Members: None Housing: Apartment Do you presently have visiting nurse or other home services: Yes Unable to assess alcohol history related to: Unable to respond and Unknown Alcohol intake: never service: No Sexual orientation: unable to discuss Review of Systems Const Denies chills and Denies fever(s) Card Reports no additional complaints and Denies syncope Resp Denies cough GI Denies abdominal pain and Denies heartburn Reports as per HPI and Denies change in libido Neuro Denies syncope Psych Denies change in libido Endo Denies change in libido Physical Exam Const General: cooperative, healthy appearing, comfortable and no acute distress Orientation/consciousness: patient oriented x3 HEENT Face and sinus: Yes normal facial exam Mouth: moist mucous membranes Neck Neck: Yes normal visual inspection, Yes full ROM and Yes trachea midline Chest Chest palpation & inspection: normal inspection of the chest Resp Effort & Inspection: normal respiratory effort, able to speak in complete sentences and no respiratory distress GI Inspection: Yes normal to inspection Back/Spine/Pelvis Cervical Spine: normal cervical lordosis Thoracic/Lumbar Spine: thoracic and lumbar spine normal to inspection Skin General skin exam: no rashes or lesions noted Neuro General: patient oriented x3, gait normal, tone normal and moves all extremities Extrem General: Yes normal to inspection and Yes capillary refill normal Assessment & Plan Assessment & Plan (1) Renal cell carcinoma: Comment: Cryotherapy December 2017 had associated paraneoplastic syndrome with exacerbation of schizoaffective disorder which resolved with cryotherapy Code(s): C64.9 - Malignant neoplasm of unspecified kidney, except renal pelvis (2) BPH w urinary obs/LUTS: Code(s): N40.1 - Benign prostatic hyperplasia with lower urinary tract symptoms; N13.8 - Other obstructive and reflux uropathy Plan Continue PSA surveillance Orders: Orders Prostate Specific Antigen 364 Days N13.8 - Other obstructive and reflux uropathy, N40.1 - Benign prostatic hyperplasia with lower urinary tract symptoms AMB Urinalysis Automated Today Z13.9 - Encounter for screening, unspecified Patient Instructions: Imaging studies, laboratory and physical exam results were discussed and reviewed in detail. No major barriers to patient understanding were identified. An opportunity to ask questions regarding the treatment plan was provided. All questions were answered. The patient expressed understanding and agreement with the above treatment plan. The patient is aware they should contact our office by phone for worsening of their current condition or the appearance of new urologic symptoms. Compliance is encouraged with any medications and followup testing that is ordered. It is a privilege to participate in the urologic care of your patient. If you have any questions or concerns regarding treatment for the above conditions, or other urologic issues, please do not hesitate to contact me. The office telephone contact is [phone]. This note is constructed using voice recognition software. While every effort has been made to ensure accuracy crm functional analyst errors may have been included. Yours sincerely, Dr Chriss Pham MD, [facility] - Urology Providers of Expert, Compassionate Care for the Genitourinary System Coding Level of Care Code Est Pt Level 4 (11293) Diagnoses Renal cell carcinoma C64.9 BPH w urinary obs/LUTS N40.1; N13.8
== END 2022-10-16 13:35 | disposition home or self-care (01) ==
PROVIDERS: Visit Provider Urology
DX: C64.1 Malignant neoplasm of right kidney, except renal pelvis (principal); N40.1 Benign prostatic hyperplasia with lower urinary tract symptoms; N13.8 Other obstructive and reflux uropathy
CPT/HCPCS: 99213

== ENCOUNTER → 2022-10-16 12:57 | Outpatient (BNVA) | payer OTHER, SELFPAY | PROVIDERS: Visit Provider Urology | DX: C64.9 Malignant neoplasm of unspecified kidney, except renal pelvis (principal); N40.1 Benign prostatic hyperplasia with lower urinary tract symptoms; N13.8 Other obstructive and reflux uropathy | CPT/HCPCS: 99212 ==

== ENCOUNTER 2022-11-21 10:09 | Day surgery (SDC) | payer OTHER, SELFPAY ==
--- NOTE | 2022-11-20 11:06 | HO.ANESPROP2 ---
Documented by User: Kim Echevarria NP 11/20/22 11:07 HPI - Anesthesia Eval Consult details Narrative: 62yo M for Colonoscopy PMFSH Active Problems Active Problems: All Active Problems (Updated 11/20/22 @ 09:42 by Sarah Bermudez RN) BPH w urinary obs/LUTS (Acute) Weak urinary stream (Acute) Renal cell carcinoma (Acute) Schizoaffective disorder, bipolar type (Acute) Anemia (Chronic) Past Medical History Medical History Anemia Bilateral cataracts Chronic headaches Colon cancer Depression Encephalopathy Esophageal stricture Feeding by G-tube GERD (gastroesophageal reflux disease) Hernia HTN (hypertension) Hyperammonemia Paraneoplastic syndrome Renal cell carcinoma Schizoaffective disorder, bipolar type Schizophrenia Seizure Syncope Surgical History Surgical History H/O hemicolectomy History of left inguinal hernia repair Social History Social History Household Members: None Housing: Apartment Do you presently have visiting nurse or other home services: Yes Unable to assess alcohol history related to: Unable to respond and Unknown Alcohol intake: never Patient Tobacco Use Status: Never used Tobacco Use of substances other than those prescribed or required for medical reasons: No Are you DNR?: No Advance Directives: No Advance Directives Information Provided: Yes service: No Sexual orientation: unable to discuss Meds Allergies Allergy/AdvReac Type Severity Reaction Status Date / Time haloperidol [From HALDOL] Allergy Unknown UNKNOWN Verified 10/16/22 13:00 Helidac Allergy Unknown seizure Uncoded 10/16/22 13:00 and stiffness Home Medications Medication Instructions Recorded Confirmed Last Taken Type metoprolol tartrate 25 mg tablet 25 mg PO BID 01/29/22 11/21/22 11/21/22 History divalproex 250 mg tablet,delayed 250 mg PO DAILY 11/21/22 11/21/22 Unknown History release Exam Exam Date and Time: November 20, 2022 1106 Pertinent Lab Results Pertinent Lab Results: Laboratory Tests 06/15/22 Unknown WBC 6.3 Hgb 13.0 L Hct 40.8 L Plt Count 140 L Assessment and Plan Assessment Anesthesia Assessment: Chart Reviewed Documented by User: Naty Haider MD 11/21/22 11:05 [facility] Past Medical History Medical History Anemia Bilateral cataracts Chronic headaches Colon cancer Depression Encephalopathy Esophageal stricture Feeding by G-tube GERD (gastroesophageal reflux disease) Hernia HTN (hypertension) Hyperammonemia Paraneoplastic syndrome Renal cell carcinoma Schizoaffective disorder, bipolar type Schizophrenia Seizure Syncope Surgical History Surgical History H/O hemicolectomy History of left inguinal hernia repair History of Problems with Anesthesia: No Social History Social History Household Members: None Housing: Apartment Do you presently have visiting nurse or other home services: Yes Unable to assess alcohol history related to: Unable to respond and Unknown Alcohol intake: never Patient Tobacco Use Status: Never used Tobacco Use of substances other than those prescribed or required for medical reasons: No Are you DNR?: No Advance Directives: No Advance Directives Information Provided: Yes service: No Sexual orientation: unable to discuss Meds Allergies Allergy/AdvReac Type Severity Reaction Status Date / Time haloperidol [From HALDOL] Allergy Unknown UNKNOWN Verified 10/16/22 13:00 Helidac Allergy Unknown seizure Uncoded 10/16/22 13:00 and stiffness Home Medications Medication Instructions Recorded Confirmed Last Taken Type metoprolol tartrate 25 mg tablet 25 mg PO BID 01/29/22 11/21/22 11/21/22 History divalproex 250 mg tablet,delayed 250 mg PO DAILY 11/21/22 11/21/22 Unknown History release Exam Airway Mallampati Class: II (edentulous) TM Dist: >3cm Neck ROM: Full Denture: Upper and Lower Loose/Missing/Broken Teeth: Yes, Upper and Lower Heart: RRR Lungs: CTA Assessment and Plan Assessment Anesthesia Assessment: Anesthesia Plan Discussed Final Anesthetic Review History of Problems with Anesthesia: No NPO: Yes ASA Class: III Final Preanesthetic Review: Meds/Allgs Chart Reviewed, Consent Obtained/Reviewed and Anes Risks/Benef Reviewed Patient Risk: Low Procedure Risk: Low Anesthetic Plan Anesthetic Plan: MAC: Disposition: Standard PACU
[2022-11-21 10:31] VITALS: BMI 24.3
[2022-11-21 10:46] VITALS: BP 108/70; PULSE 63; RESP 18; TEMP 36.1; O2SAT 97
[2022-11-21] MEDS: Lactated Ringers 1,000 ML 100 ML IVCONT (10:48)
[2022-11-21 12:11] VITALS: BP 109/72; PULSE 64; RESP 12; TEMP 36.2; O2SAT 98
[2022-11-21 12:26] VITALS: BP 125/70; PULSE 56; RESP 16; O2SAT 99
[2022-11-21 12:41] VITALS: BP 123/72; PULSE 58; RESP 16; O2SAT 99
--- NOTE | 2022-11-21 12:45 | P.BOP_ITS ---
Brief Operative Note Date of Service: 11/21/22 Pre-op diagnosis: Screening Post-op diagnosis: other (Limited exam due to poor prep) Procedure: Colonoscopy to the cecum Surgeon: Amilcar Elder Anesthesia: MAC Was an Photogrammetry Airplane Pilot used for this Procedure?: No Estimated blood loss (mL): 0 Pathology: none sent Condition: stable Disposition: PACU
[2022-11-21 12:56] VITALS: BP 115/68; PULSE 58; RESP 18; TEMP 36.1; O2SAT 99
--- NOTE | 2022-11-21 22:48 | OP_ITS ---
DATE OF SERVICE: 11/21/2022 SURGEON: Amilcar Elder MD INDICATIONS: The patient presents for followup of personal history of colon cancer, colorectal polyps, and colorectal cancer screening. Full consent was obtained from him for this, including risks of bleeding and perforation. PREOPERATIVE DIAGNOSIS: POSTOPERATIVE DIAGNOSIS: PROCEDURE PERFORMED: Colonoscopy to the cecum. ESTIMATED BLOOD LOSS: COMPLICATIONS: ANESTHESIA: Medication used, monitored anesthesia care. ASSISTANTS: SPECIMENS: PREOPERATIVE DIAGNOSES: Personal history of colon cancer and colon polyps, colorectal cancer screening. POSTOPERATIVE DIAGNOSES: Personal history of colon cancer and colon polyps, colorectal cancer screening. Limited exam due to poor prep, internal hemorrhoids. DESCRIPTION OF PROCEDURE: The patient was placed in the left lateral decubitus position. The digital rectal exam revealed no abnormalities. The Olympus video pediatric colonoscope was entered into the rectum and advanced to the cecum which was somewhat difficult due to the poor prep. However, once in the cecum, I did obtain partial visualization of the cecum including the ileocecal valve, which appeared normal, and the appendiceal orifice. No masses were visualized. Again, the view was somewhat limited. The scope was then slowly withdrawn assessing all mucosal surfaces carefully. Unfortunately prep was quite limited in multiple parts of the colon. In the transverse colon, there appeared to be a 5 mm polyp but this was not biopsied nor removed due to the poor prep. I did not visualize any other lesions, but again small or moderate-sized lesions may have been easily missed due to the poor prep. There was no sign of any colitis. In the rectum, the scope was retroflexed visualizing small internal hemorrhoids, but no other pathology. The rectal mucosa appeared normal. Scope was straightened and withdrawn from the patient. He tolerated the procedure well and was returned to the recovery area in stable condition. IMPRESSION: 1. Limited colonoscopy due to poor prep. 2. Internal hemorrhoids. PLAN: I did speak with his dairy nutrition consultant, Raquel and she advised me that as far as she knows he did the prep properly but she was not with him when he did it as he lives on his own. He may very well have had food rather than clear liquids. I will be in touch with him to reschedule a procedure with a 2-day prep and be sure he understands the instructions as far as the diet is concerned. Given his previous history, I think it will be important to repeat the exam at some point. It is not urgent, but we shall try to get it done either later this year or by next year. His last colonoscopy in 2019 only showed a small polyp. At that time, the preparation was described as excellent. MD MIMI Nair/MADELINE / [id number] MTDD
== END 2022-11-21 13:47 | disposition home or self-care (01) ==
PROVIDERS: PCP Internal Medicine; Visit Provider Internal Medicine
PROC: 0DJD8ZZ Inspection of Lower Intestinal Tract, Via Natural or Artificial Opening Endoscopic (ICD-10-PCS; CPT 45378; principal; 2022-11-21 11:40)
DX: Z12.11 Encounter for screening for malignant neoplasm of colon (principal); Z85.038 Personal history of other malignant neoplasm of large intestine; Z90.49 Acquired absence of other specified parts of digestive tract; Z86.010 Personal history of colon polyps; K64.8 Other hemorrhoids; I10 Essential (primary) hypertension; F20.9 Schizophrenia, unspecified; K21.9 Gastro-esophageal reflux disease without esophagitis; Z79.899 Other long term (current) drug therapy; Z85.528 Personal history of other malignant neoplasm of kidney
CPT/HCPCS: G0105

== ENCOUNTER 2022-12-04 11:15 | Outpatient (REF) | payer OTHER, SELFPAY ==
[2022-12-04 11:48] LABS: MANUAL DIFF FLAG NO
[2022-12-04 12:11] LABS: Appearance Urine Clear; Color Urine Yellow; Glucose Urine UA Negative (Negative); Leukocyte Esterase Urine Small (1+) (Negative); Nitrite Urine Negative (Negative); PH 6.5 (5.0-9.0); Specific Gravity - Urine 1.015 (1.005-1.025); UMIC TRIGGER UACC YES; Urine Blood Negative (Negative); Urine Ketones Negative (Negative); Urine Protein Negative (Neg-Trace)
[2022-12-04 12:14] LABS: Bacteria Urine None Seen (None Seen); Hyaline Casts Urine 0-2 /LPF (0-2); RBC Urine 0-2 /HPF (0-2); Squamous Epithelial Cell Urine 0-2 /HPF (0-2); UACC Culture Trigger YES
[2022-12-04 12:15] LABS: Basophils Percent Auto 0.5 % (0-2); Eosinophils Absolute Auto 0.2 X10*3/uL (0.0-0.4); Eosinophils Percent Auto 2.4 % (0-4); Hematocrit 41.6 % (42.0-52.0); Hemoglobin 13.4 g/dl (14.0-18.0); Imm Gran Abs Auto 0.02 X10*3/uL (0.00-0.03); Imm Gran Pct Auto 0.3 % (0.0-0.4); Lymphocytes Absolute Auto 2.7 X10*3/uL (1.2-4.9); Lymphocytes Percent Auto 41.1 % (20-40); Mean Corpuscular HGB Conc 32.2 g/dl (31.0-36.0); Mean Corpuscular Hemoglobin 30.7 pg (27.0-33.0); Mean Corpuscular Volume 95.2 fL (80.0-98.0); Monocytes Absolute Auto 0.6 X10*3/uL (0.1-1.2); Monocytes Percent Auto 8.4 % (2-11); Neutrophils Absolute Auto 3.2 x10*3/uL (2.0-8.3); Neutrophils Percent Auto 47.3 % (45-73); Platelet Count 155 X10*3/uL (160-400); Red Blood Count 4.37 X10*6/uL (4.60-5.80); Red Cell Distribution Width 14.9 % (11.0-16.0); White Blood Count 6.7 X10*3/uL (4.8-10.8)
[2022-12-04 12:39] LABS: Alanine Aminotransferase 22 U/L (0-40); Alkaline Phosphatase 38 U/L (39-117); Anion Gap 13 (12-20); Aspartate Amino Transferase 22 U/L (5-37); Bilirubin Total 0.6 mg/dL (0.0-1.0); Blood Urea Nitrogen 12 mg/dL (9-16); Calcium 9.7 mg/dL (8.4-10.2); Carbon Dioxide 30 mmol/L (22-29); Chloride 106 mmol/L (96-108); Cholesterol 164 mg/dL (<200); Estimated Glomerular Filt Rate > 60; Glucose Fasting 102 mg/dL (60-99); HDL Cholesterol 36 mg/dL (>40); LDL Cholesterol Calculated 97 mg/dL (<100); Potassium 3.9 mmol/L (3.3-5.1); Sodium 145 mmol/L (135-145); Total Protein 6.9 g/dL (6.5-8.0); Triglycerides 156 mg/dL (<150)
[2022-12-04 12:53] LABS: PSA,Total (Free>4and<10) 1.87 ng/mL (0.00-4.00)
[2022-12-04 12:54] LABS: Vitamin D 25-OH Total 64.6 ng/mL (>30)
== END 2022-12-04 11:16 | disposition home or self-care (01) ==
LOC: HO.LNP 11:15
PROVIDERS: Visit Provider Internal Medicine
DX: Z00.00 Encounter for general adult medical examination without abnormal findings (principal); Z12.5 Encounter for screening for malignant neoplasm of prostate; E78.00 Pure hypercholesterolemia, unspecified; E55.9 Vitamin D deficiency, unspecified; K76.0 Fatty (change of) liver, not elsewhere classified; N40.0 Benign prostatic hyperplasia without lower urinary tract symptoms
CPT/HCPCS: 80053; 80061; 81001; 82306; 84153; 85025; 87086

== ENCOUNTER 2023-07-31 08:52 | Day surgery (SDC) | payer OTHER, SELFPAY ==
[2023-07-30 06:50] VITALS: BMI 29.8
[2023-07-31 10:35] VITALS: BP 132/81; PULSE 74; RESP 18; TEMP 36; O2SAT 97
[2023-07-31] MEDS: Lactated Ringers 1,000 ML 100 ML IVCONT (10:38)
--- NOTE | 2023-07-31 10:42 | P.CONAN_ITS ---
[facility] Active Problems Active Problems: All Active Problems Weak urinary stream (Acute) BPH w urinary obs/LUTS (Acute) Renal cell carcinoma (Acute) Schizoaffective disorder, bipolar type (Acute) Anemia (Chronic) Past Medical History Medical History Feeding by G-tube Bilateral cataracts Schizoaffective disorder, bipolar type Syncope Seizure Paraneoplastic syndrome Chronic headaches Colon cancer Hyperammonemia Esophageal stricture Encephalopathy Renal cell carcinoma Anemia Hernia Depression HTN (hypertension) Schizophrenia GERD (gastroesophageal reflux disease) Family History Family history of problems with anesthesia: No Surgical History Surgical History Hx of cataract extraction History of esophagogastroduodenoscopy (EGD) H/O colonoscopy History of left inguinal hernia repair H/O hemicolectomy History of Problems with Anesthesia: No Social History Social History Household Members: None Housing: Apartment Do you presently have visiting nurse or other home services: Yes Unable to assess alcohol history related to: Unable to respond and Unknown Alcohol intake: never Comment: incoherent Patient Tobacco Use Status: Never used Tobacco Advance Directives: No Advance Directives Information Provided: Yes service: No Sexual orientation: unable to discuss Meds Allergies Allergy/AdvReac Type Severity Reaction Status Date / Time haloperidol [From HALDOL] Allergy Unknown UNKNOWN Verified 10/16/22 13:00 Helidac Allergy Unknown seizure Uncoded 10/16/22 13:00 and stiffness Active Medications: Current Medications Lactated Ringer's (Lr) 1,000 mls @ 100 mls/hr IVCONT .Q10H [facility] Last Admin: 07/31/23 10:38 Dose: 100 mls/hr Sodium Biphosphate/Sodium Phosphate (Sodium Phosphate,Preston-Dibasic 133 Ml Enema) 133 ml MT ONCE [facility] Home Medications ?Medication ?Instructions ?Recorded ?Confirmed ?Last Taken ?Type metoprolol tartrate 25 mg tablet 25 mg PO BID 01/29/22 07/30/23 11/21/22 History divalproex 250 mg tablet,delayed 250 mg PO DAILY 11/21/22 07/30/23 Unknown History release docusate sodium 100 mg capsule 100 mg PO BID PRN Constipation 07/30/23 07/30/23 Unknown History Exam Height,Weight and Vital Signs: Height 5 ft 7.5 in Weight 87.543 kg Last Vital Signs Temp 96.8 F 07/31/23 10:35 Pulse 74 07/31/23 10:35 Resp 18 07/31/23 10:35 BP 132/81 07/31/23 10:35 Pulse Ox 97 07/31/23 10:35 O2 Del Method Room Air 07/31/23 10:35 Airway Mallampati Class: III TM Dist: >3cm Neck ROM: Full Denture: Upper and Lower Loose/Missing/Broken Teeth: No Heart: rrr Lungs: cts Assessment and Plan Assessment Anesthesia Assessment: Anesthesia Plan Discussed and Chart Reviewed Final Anesthetic Review Family History of Problems with Anesthesia: No History of Problems with Anesthesia: No NPO: Yes ASA Class: III Final Preanesthetic Review: No Changes in Pt Med Stat, Meds/Allgs Chart Review ed, Consent Obtained/Reviewed and Anes Risks/Benef Reviewed Patient Risk: Intermediate Procedure Risk: Intermediate Anesthetic Plan Anesthetic Plan: MAC: Disposition: Standard PACU
[2023-07-31 11:37] VITALS: BP 93/62; PULSE 68; RESP 16; TEMP 36.2; O2SAT 95
--- NOTE | 2023-07-31 11:40 | PM.OP ---
Brief Operative Note Date of Service: 07/31/23 Pre-op diagnosis: Screening Post-op diagnosis: other (Colon polyp) Procedure: Colonoscopy to the cecum and TI with bx/removal of polyp Surgeon: Amilcar Elder MD Anesthesia: MAC Was an Soil Science Teacher used for this Procedure?: No Estimated blood loss (mL): 2.0 Pathology: other (A. Polyp at 40cm) Condition: stable Disposition: PACU
[2023-07-31 11:52] VITALS: BP 101/68; BP 114/72; PULSE 64; PULSE 65; RESP 17; RESP 20; TEMP 36.6; O2SAT 99
[2023-07-31 12:04] VITALS: BP 114/72; PULSE 65; RESP 20; TEMP 36.6; O2SAT 99
--- NOTE | 2023-07-31 12:06 | OP_ITS ---
DATE OF SERVICE: 07/31/2023 SURGEON: Amilcar Elder MD INDICATIONS: The patient presents for evaluation of personal history of colon cancer and tubular adenoma of the colon. Full consent has been obtained from him for this, including risks of bleeding and perforation. PREOPERATIVE DIAGNOSIS: POSTOPERATIVE DIAGNOSIS: PROCEDURE PERFORMED: Colonoscopy to cecum and terminal ileum with biopsy and removal of polyp. ESTIMATED BLOOD LOSS: COMPLICATIONS: ANESTHESIA: Monitored anesthesia care. ASSISTANTS: SPECIMENS: PREOPERATIVE DIAGNOSES: Colorectal cancer screening, personal history of colon cancer, personal history of tubular adenoma of the colon. POSTOPERATIVE DIAGNOSES: Colorectal cancer screening, personal history of colon cancer, personal history of tubular adenoma of the colon, small colon polyp, mild diverticulosis, internal hemorrhoids. DESCRIPTION OF PROCEDURE: The patient was placed in left decubitus position. The digital rectal exam revealed no abnormalities. The [employer] video pediatric colonoscope was then entered into the rectum and advanced easily to the cecum. Once in the cecum, I did identify normal-appearing cecal pouch with appendiceal orifice and a normal-appearing ileocecal valve. The terminal ileum was cannulated and appeared normal. Scope was withdrawn back in the colon. The entire cecum and ileocecal valve appeared normal. Scope was slowly withdrawn assessing all mucosal surfaces carefully. Preparation was excellent. At 40 cm, was a flat, approximately 4 mm polyp, which was biopsied and completely removed with the cold biopsy forceps. I did not visualize any other polyps, colitis, or angiodysplasia. There was a mild amount of diverticulosis in the descending colon. His anastomosis appeared at 25 cm and appeared normal. In the rectum, scope was retroflexed, visualizing some internal hemorrhoids, but no other pathology. The rectal mucosa appeared normal. Scope was straightened and withdrawn from the patient. He tolerated the procedure well and was returned to the recovery area in stable condition. IMPRESSION: 1. Colon polyp. 2. Mild diverticulosis. 3. Internal hemorrhoids. PLAN: The results of the biopsy will be checked. I would recommend a repeat colonoscopy in 3 years for further screening and surveillance. He will, otherwise, see me on a p.r.n. basis. MD VICK NairW/ROYALL / [phone]
== END 2023-07-31 12:58 | disposition home or self-care (01) ==
PROVIDERS: PCP Internal Medicine; Visit Provider Internal Medicine
PROC: 0DJD8ZZ Inspection of Lower Intestinal Tract, Via Natural or Artificial Opening Endoscopic (ICD-10-PCS; CPT 45378; principal; 2023-07-31 10:40)
DX: Z12.11 Encounter for screening for malignant neoplasm of colon (principal); D12.6 Benign neoplasm of colon, unspecified; K57.30 Diverticulosis of large intestine without perforation or abscess without bleeding; K64.8 Other hemorrhoids; Z85.038 Personal history of other malignant neoplasm of large intestine; Z86.010 Personal history of colon polyps
CPT/HCPCS: 45380; 88305; J2371; J2704

== ENCOUNTER 2024-01-15 10:32 | Outpatient (REF) | payer OTHER, SELFPAY ==
--- NOTE | ~2024-01-15 | FL_ITS ---
EXAMINATION: Modified Barium Swallow CLINICAL INFORMATION: Dysphagia COMPARISON: None TECHNIQUE: Modified barium swallow was performed under lateral fluoroscopy with patient in standing position. Barium mixed with solids and liquids of different consistencies was administered by the speech pathologist. Examination was recorded in the fluoroscopy suite. FINDINGS: No laryngeal penetration or aspiration was observed during this examination. FLUOROSCOPY TIME: 1 minute 49 seconds Number of Spot Images: N/A DOSE AREA PRODUCT: 961.3 uGy-m2 (microgray-meter squared) FL/FL Modified Barium Swallow IMPRESSION: 1. No laryngeal penetration or aspiration was observed during this examination Refer to the speech therapy report for further clarification This procedure was performed by Eligio Crawford PA-C, and supervised by Dr. Walters Electronically signed by: Pablito Walters MD 01/24/2024 04:41 PM [facility]
--- NOTE | 2024-01-27 14:08 | MHC.SL.IMP ---
Date of Plan of Treatment: 01/15/24 Onset of Symptoms/Illness: 01/09/24 Date Treatment Started: 01/15/24 Admitting Diagnosis: Choking episode (R09.89) Primary Speech & Language Diagnosis: R13.19 Other Dysphagia Reason for Today's Visit: 20722 Modified Barium Swallow Study Pre-evaluation Dietary Consistencies: Regular Pre-evaluation Liquid Consistency: Thin Pre-evaluation Medication Administration: Whole with Liquid Medical History: Anemia Bilateral cataracts Chronic headaches Colon CA Depression Encephalopathy Esophageal stricture GERD Hx PEG Tube (s/p 2017) Hernia HTN Hyperammonemia Paraeoplastic syndrome Renal cell carcinoma Schizophrenia Seizure [facility] Fall Risk Assessment Score: Oral Motor Exam Facial Symmetry: Normal for Patient Symmetrical Facial Movement: Mouth Occlusion: Normal Oral-Facial Teeth Characteristics: Edentulous Oral Expression Ability: No Impairment Is patient able to manage secretions?: Yes Is patient able to produce volitional cough?: Yes Food and Liquid Trials: Oral Impairment: Lip Closure: Did not test Oral Impairment: Tongue Control During Bolus Hold: 0=Cohesive bolus between tongue to palatal seal Oral Impairment: Bolus Preparation/Mastication: 0=Timely and efficient chewing and mashing Oral Impairment: Bolus Transport/Lingual Motion: 0=Brisk tongue motion Oral Impairment: Oral Residue: 1=Trace residue lining oral structures Oral Impairment:Initiation of Pharyngeal Swallow: 1=Bolus head in valleculae Pharyngeal Impairment: Soft Palate Elevation: 0=No bolus between soft palate (SP)/pharyngeal wall (PW) Pharyngeal Impairment: Laryngeal Elevation: 0=Complete superior movement of thyroid cartilage (see description) Pharyngeal Impairment: Anterior Hyoid Excursion: 0=Complete anterior movement Pharyngeal Impairment: Epiglottic Movement: 0=Complete inversion Pharyngeal Impairment: Laryngeal Vestibular Closure:: 0=Complete: no air/contrast in laryngeal vestibule Pharyngeal Impairment: Pharyngeal Stripping Wave: 0=Present: complete Pharyngeal Impairment: Pharyngeal Contraction: Did not test Pharyngeal Impairment: Pharyngoesophageal Segment Openin=Partial distention/partial duration: partial obstruction of flow Pharyngeal Impairment: Tongue Base (TB) Retraction: 1=Trace column of contrast/air between TB and posterior PW Pharyngeal Impairment: Pharyngeal Residue: 1=Trace residue within or on pharyngeal structures Pharyngeal Impairment: Esophageal Clearance Upright Position: Did not test Impressions and Recommendations Clinical Observations: Current (pre-evaluation) Intake/Diet: Pre-Study Functional Oral Intake Scale (FOIS): 6- Total oral intake with no special preparation, but must avoid specific foods or liquid items [facility] ID: [id number] [facility] Results: Lip closure for intraoral bolus containment could not be assessed due to logistical reasons not related to physiologic impairment. Tongue control during bolus hold maintained a cohesive bolus held between tongue to palate seal. Bolus preparation and mastication resulted in timely and efficient chewing and mashing. Bolus transport/lingual motion was with brisk tongue motion. Oral residue was a trace, lining oral structures. Initiation of the pharyngeal swallow occurred when the bolus head was in the valleculae. Soft palate elevation resulted in no bolus between the soft palate and the pharyngeal wall. Laryngeal elevation demonstrated complete superior movement of the thyroid cartilage with complete approximation of the arytenoids to the epiglottic petiole. Anterior hyoid excursion demonstrated complete anterior movement. Epiglottic movement resulted in complete inversion. Laryngeal vestibular closure was complete, as indicated by no air or contrast within the laryngeal vestibule at the height of the swallow. Pharyngeal stripping wave was present and complete. Pharyngeal contraction could not be determined due to logistical reasons not related to physiologic impairment. Pharyngoesophageal segment opening demonstrated partial distension/partial duration, with partial obstruction of bolus flow. Tongue base retraction allowed a trace column of contrast or air between the retracted tongue base and the posterior pharyngeal wall. Pharyngeal residue was a trace within or on pharyngeal structures. Esophageal clearance in the upright position could not be assessed due to logistical reasons not related to physiologic impairment. Oral Impairment Score: 1 (absence of score, component 1) Pharyngeal Impairment Score: 1 (absence of score, component 13) Esophageal Impairment Score: --- (absence of score, component 17) Laryngeal Penetration and Aspiration: Neither penetration nor aspiration was observed in today's study with Cookie, Pudding-thick, Thin. SUMMARY: Thin Liquids, Puree Solids and Regular Solids were provided coated in Barium Contrast. Normal Oral Phase preparation with minimal contrast remaining across consistencies. Normal pharyngeal phase with mild residue observed at the upper esophgeal sphicter. There is mild retention noted below the UES. Full esophageal motility should be assessed with a full esophagram or GI consultation for EGD. PLAN: Intake Recommendations: Post-Study Functional Oral Intake Scale (FOIS): 7- Total oral intake with no restrictions Liquid Intake Recommendation: Thin Liquid Intake Strategies: Unrestricted Dietary Recommendations: Regular Medication Administration: Whole with Liquid Please contact the pharmacy regarding appropriate crushable or liquid drug formulations that are available whenever modified delivery is recommended. Compensatory Strategies Recommended: Sitting Upright (90 deg) Small Bites and Sips Alternate Liquids/Solids Supervision during eating and or drinking: None Needed Recommended Treatments: Compens. Strategy Educat. Recommendation for Speech Therapy: NA:Typical Evaluation Text Comment: No formal changes to diet recommended. Pt is already avoiding food that are difficult for him to chew. Consider Esophogram or GI Referral for further assessment. Frequency/Duration: Date Range for Service Requested: Timeline to reassess: PRN Surfboard Maker Clinician/Clinical Fellow: No Supervisory Statement: N/A Speech Language Pathologist: Layton Leal M.A., CCC-PLATFORM MATERIAL HANDLER MANAGER
== END 2024-01-15 10:33 | disposition home or self-care (01) ==
LOC: HO.XRAY 10:32
PROVIDERS: Visit Provider Internal Medicine
DX: R09.89 Other specified symptoms and signs involving the circulatory and respiratory systems (principal)
CPT/HCPCS: 74230; 92611

== ENCOUNTER → 2024-01-15 10:34 | Outpatient (BNV) | payer OTHER, SELFPAY | PROVIDERS: Visit Provider Physician Assistant Surgical | DX: R13.10 Dysphagia, unspecified (principal) | CPT/HCPCS: 74230 ==

== ENCOUNTER 2024-02-05 09:41 | Outpatient (REF) | payer OTHER, SELFPAY ==
--- NOTE | ~2024-02-05 | FL_ITS ---
EXAMINATION: XR FLUOROSCOPY UPPER GI WITH AIR CLINICAL INFORMATION: Choking. Dysphagia. COMPARISON: None TECHNIQUE: Fluoroscopic air contrast upper GI examination was performed utilizing standard techniques with thin and thick barium and effervescent granules. Numerous spot images were obtained. FINDINGS: Lateral cine images of the oropharynx and hypopharynx demonstrate normal swallow mechanism with normal epiglottic inversion and soft palate elevation. No tracheal penetration, glottic or subglottic aspiration identified. No nasopharyngeal reflux present. Hypopharyngeal structures appear normal without evidence of mass or diverticulum. There is mild cricopharyngeal achalasia present. Dual and single contrast images of the esophagus demonstrate a normal caliber, contour, and mucosal pattern. No evidence of mass or ulcerations. There is mild narrowing of the GE junction that may represent achalasia. There is to and fro motion of the barium column with nonpropulsive tertiary contractions noted throughout the esophagus. No evidence of hiatus hernia identified. No significant gastroesophageal reflux was seen during the course of the examination and on reflux views. Dual contrast and single contrast images of the stomach demonstrated a normal contour. The gastric rugal folds have a thickened appearance, suggestive of gastritis. No masses or ulcerations are seen. Contrast freely passed into the gastric antrum and duodenal bulb without delay. Single and air-contrast images of the duodenal bulb demonstrate no abnormality. The duodenal sweep has a normal caliber and appearance. The imaged proximal jejunum has a normal fold pattern and caliber. An IVC filter is incidentally noted. FLUOROSCOPY TIME: 5 minutes 22 seconds Number of Spot Images: 12 Number of Cine: 16 DOSE AREA PRODUCT: 4954 uGy-m2 (microgray-meter squared) FL/FL barium swallow with air IMPRESSION: 1. Mild cricopharyngeal achalasia. 2. Mild narrowing of the GE junction that likely represents achalasia. A benign stricture cannot be ruled out. Recommend correlation with EGD. 3. Significant esophageal dysmotility. 4. Mildly thickened appearance of the gastric rugal folds, suggestive of gastritis. This procedure was performed by Eligio Crawford PA-C, and supervised by Dr. Walters Electronically signed by: Pablito Walters MD 02/05/2024 03:13 PM [facility]
== END 2024-02-05 09:42 | disposition home or self-care (01) ==
LOC: HO.XRAY 09:41
PROVIDERS: Visit Provider Internal Medicine
DX: K21.00 Gastro-esophageal reflux disease with esophagitis, without bleeding (principal); R09.89 Other specified symptoms and signs involving the circulatory and respiratory systems
CPT/HCPCS: 74221

== ENCOUNTER → 2024-02-05 09:44 | Outpatient (BNV) | payer OTHER, SELFPAY | PROVIDERS: Visit Provider Physician Assistant Surgical | DX: R47.02 Dysphasia (principal) | CPT/HCPCS: 74246 ==

== ENCOUNTER 2024-02-17 11:28 | Outpatient (REF) | payer OTHER, SELFPAY ==
[2024-02-17 11:34] LABS: MANUAL DIFF FLAG NO
[2024-02-17 13:02] LABS: Basophils Percent Auto 0.5 % (0-2); Eosinophils Absolute Auto 0.1 X10*3/uL (0.0-0.4); Eosinophils Percent Auto 1.8 % (0-4); Hematocrit 39.4 % (42.0-52.0); Hemoglobin 12.6 g/dl (14.0-18.0); Imm Gran Abs Auto 0.03 X10*3/uL (0.00-0.03); Imm Gran Pct Auto 0.5 % (0.0-0.4); Lymphocytes Absolute Auto 2.3 X10*3/uL (1.2-4.9); Lymphocytes Percent Auto 40.8 % (20-40); Mean Corpuscular Hemoglobin 30.8 pg (27.0-33.0); Mean Corpuscular Volume 96.3 fL (80.0-98.0); Mean Platelet Volume 9.9 fL (9.4-12.4); Monocytes Absolute Auto 0.5 X10*3/uL (0.1-1.2); Neutrophils Absolute Auto 2.7 x10*3/uL (2.0-8.3); Neutrophils Percent Auto 47.4 % (45-73); Platelet Count 143 X10*3/uL (160-400); Red Blood Count 4.09 X10*6/uL (4.60-5.80); Red Cell Distribution Width 14.7 % (11.0-16.0); White Blood Count 5.7 X10*3/uL (4.8-10.8)
[2024-02-17 13:04] LABS: Appearance Urine Clear; Color Urine Yellow; Glucose Urine UA Negative (Negative); Leukocyte Esterase Urine Negative (Negative); Nitrite Urine Negative (Negative); PH 7.5 (5.0-9.0); Urine Blood Negative (Negative); Urine Ketones Trace mg/dL (Negative); Urine Protein Negative (Neg-Trace)
[2024-02-17 13:09] LABS: Bacteria Urine None Seen (None Seen); Hyaline Casts Urine 0-2 /LPF (0-2); RBC Urine 0-2 /HPF (0-2); Squamous Epithelial Cell Urine 0-2 /HPF (0-2); WBC Urine 0-5 /HPF (0-5)
[2024-02-17 13:20] LABS: Estimated Average Glucose 134 mg/dL; Hemoglobin A1C 147.5828 umol/L; Hemoglobin A1c % 6.3 % (<6.0); Total Hemoglobin (HGBA1C) 3260.1318 umol/L
[2024-02-17 13:31] LABS: Alanine Aminotransferase 24 U/L (0-40); Albumin Level 3.7 g/dL (3.5-5.0); Alkaline Phosphatase 39 U/L (39-117); Anion Gap 10 (12-20); Aspartate Amino Transferase 32 U/L (5-37); Bilirubin Total 0.5 mg/dL (0.0-1.0); Blood Urea Nitrogen 10 mg/dL (9-16); Carbon Dioxide 29 mmol/L (22-29); Chloride 109 mmol/L (96-108); Cholesterol 151 mg/dL (<200); Estimated Glomerular Filt Rate 58; Glucose Fasting 101 mg/dL (60-99); HDL Cholesterol 38 mg/dL (>40); LDL Cholesterol Calculated 79 mg/dL (<100); Sodium 144 mmol/L (135-145); Total Protein 6.3 g/dL (6.5-8.0); Triglycerides 172 mg/dL (<150)
[2024-02-17 13:37] LABS: PSA,Total (Free>4and<10) 1.09 ng/mL (0.00-4.00)
[2024-02-17 13:38] LABS: Vitamin D 25-OH Total 44.4 ng/mL (>30)
== END 2024-02-17 11:29 | disposition home or self-care (01) ==
LOC: HO.LNP 11:28
PROVIDERS: Visit Provider Internal Medicine
DX: D72.820 Lymphocytosis (symptomatic) (principal); Z12.5 Encounter for screening for malignant neoplasm of prostate; E78.00 Pure hypercholesterolemia, unspecified; N40.0 Benign prostatic hyperplasia without lower urinary tract symptoms; E55.9 Vitamin D deficiency, unspecified; R73.01 Impaired fasting glucose
CPT/HCPCS: 80053; 80061; 81001; 82306; 83036; 84153; 85025

== ENCOUNTER 2024-05-01 10:55 | Day surgery (SDC) | payer OTHER, SELFPAY ==
[2024-04-29 16:11] VITALS: BMI 31.8
--- NOTE | 2024-04-30 09:12 | HO.ANESPROP2 ---
Documented by User: Kim Echevarria NP 04/30/24 09:12 HPI - Anesthesia Eval Consult details Narrative: 64yo M for Upper Endoscopy with Balloon Dilitation PMFSH Active Problems Active Problems: All Active Problems Weak urinary stream (Acute) BPH w urinary obs/LUTS (Acute) Renal cell carcinoma (Acute) Schizoaffective disorder, bipolar type (Acute) Anemia (Chronic) Past Medical History Medical History Feeding by G-tube Bilateral cataracts Schizoaffective disorder, bipolar type Syncope Seizure Paraneoplastic syndrome Chronic headaches Colon cancer Hyperammonemia Esophageal stricture Encephalopathy Renal cell carcinoma Anemia Hernia Depression HTN (hypertension) Schizophrenia GERD (gastroesophageal reflux disease) Family History Family history of problems with anesthesia: No Surgical History Surgical History Hx of cataract extraction History of esophagogastroduodenoscopy (EGD) H/O colonoscopy History of left inguinal hernia repair H/O hemicolectomy History of Problems with Anesthesia: No Social History Social History Household Members: None Housing: Apartment Do you presently have visiting nurse or other home services: Yes Unable to assess alcohol history related to: Unable to respond and Unknown Alcohol intake: never Comment: incoherent Patient Tobacco Use Status: Never used Tobacco Use of substances other than those prescribed or required for medical reasons: No Advance Directives: No Advance Directives Information Provided: Yes service: No Sexual orientation: unable to discuss Meds Allergies Allergy/AdvReac Type Severity Reaction Status Date / Time haloperidol [From HALDOL] Allergy Unknown UNKNOWN Verified 05/01/24 11:46 adhesive tape AdvReac Unknown Rash Verified 05/01/24 11:58 Helidac Allergy Unknown seizure Uncoded 10/16/22 13:00 and stiffness Home Medications ?Medication ?Instructions ?Recorded ?Confirmed ?Last Taken ?Type metoprolol tartrate 25 mg tablet 25 mg PO BID 01/29/22 05/01/24 05/01/24 07:00 History divalproex 250 mg tablet,delayed 250 mg PO DAILY 11/21/22 05/01/24 05/01/24 07:00 History release docusate sodium 100 mg capsule 100 mg PO BID PRN Constipation 07/30/23 05/01/24 05/01/24 07:00 History Exam Height,Weight and Vital Signs: Height 5 ft 7.5 in Weight 93.44 kg Pertinent Lab Results Pertinent Lab Results: Laboratory Tests 02/17/24 07:15 WBC 5.7 Hgb 12.6 L Hct 39.4 L Plt Count 143 L Sodium 144 Potassium 4.0 Chloride 109 H Carbon Dioxide 29 BUN 10 Creatinine 1.26 Assessment and Plan Assessment Anesthesia Assessment: Chart Reviewed Final Anesthetic Review Family History of Problems with Anesthesia: No History of Problems with Anesthesia: No Documented by User: Naty Haider MD 05/01/24 12:38 PMFSH Past Medical History Medical History Feeding by G-tube Bilateral cataracts Schizoaffective disorder, bipolar type Syncope Seizure Paraneoplastic syndrome Chronic headaches Colon cancer Hyperammonemia Esophageal stricture Encephalopathy Renal cell carcinoma Anemia Hernia Depression HTN (hypertension) Schizophrenia GERD (gastroesophageal reflux disease) Surgical History Surgical History Hx of cataract extraction History of esophagogastroduodenoscopy (EGD) H/O colonoscopy History of left inguinal hernia repair H/O hemicolectomy Social History Social History Household Members: None Housing: Apartment Do you presently have visiting nurse or other home services: Yes Unable to assess alcohol history related to: Unable to respond and Unknown Alcohol intake: never Comment: incoherent Patient Tobacco Use Status: Never used Tobacco Use of substances other than those prescribed or required for medical reasons: No Advance Directives: No Advance Directives Information Provided: Yes service: No Sexual orientation: unable to discuss Meds Allergies Allergy/AdvReac Type Severity Reaction Status Date / Time haloperidol [From HALDOL] Allergy Unknown UNKNOWN Verified 05/01/24 11:46 adhesive tape AdvReac Unknown Rash Verified 05/01/24 11:58 Helidac Allergy Unknown seizure Uncoded 10/16/22 13:00 and stiffness Home Medications ?Medication ?Instructions ?Recorded ?Confirmed ?Last Taken ?Type metoprolol tartrate 25 mg tablet 25 mg PO BID 01/29/22 05/01/24 05/01/24 07:00 History divalproex 250 mg tablet,delayed 250 mg PO DAILY 11/21/22 05/01/24 05/01/24 07:00 History release docusate sodium 100 mg capsule 100 mg PO BID PRN Constipation 07/30/23 05/01/24 05/01/24 07:00 History Exam Airway Mallampati Class: III TM Dist: >3cm Neck ROM: Limited Loose/Missing/Broken Teeth: Yes, Upper and Lower Heart: RRR Lungs: CTS Assessment and Plan Assessment Anesthesia Assessment: Anesthesia Plan Discussed Final Anesthetic Review NPO: Yes ASA Class: III Final Preanesthetic Review: Meds/Allgs Chart Reviewed, Consent Obtained/Reviewed and Anes Risks/Benef Reviewed Patient Risk: Intermediate Procedure Risk: Intermediate Anesthetic Plan Anesthetic Plan: MAC: Disposition: Standard PACU
[2024-05-01 11:25] VITALS: BP 112/74; PULSE 81; RESP 15; TEMP 35.9; O2SAT 95; BMI 31.1
[2024-05-01] MEDS: Lactated Ringers 1,000 ML 100 ML IVCONT (11:49)
[2024-05-01 12:47] VITALS: BP 104/66; PULSE 76; RESP 18; TEMP 36.1; O2SAT 99
[2024-05-01 12:50] VITALS: BP 109/71; PULSE 75; RESP 16; O2SAT 99
--- NOTE | 2024-05-01 12:53 | PM.OP ---
Brief Operative Note Date of Service: 05/01/24 Pre-op diagnosis: Dysphagia Post-op diagnosis: other (Hiatal hernia) Procedure: EGD with balloon dilation of the EG Junction from 19mm to 20mm Surgeon: Amilcar Elder MD Anesthesia: MAC Was an Certified Ethical Hacker used for this Procedure?: No Estimated blood loss (mL): 0 Pathology: none sent Condition: stable Disposition: PACU
[2024-05-01 12:55] VITALS: BP 109/66; PULSE 78; RESP 16; O2SAT 99
[2024-05-01 13:00] VITALS: BP 113/65; PULSE 82; RESP 16; TEMP 36.1; O2SAT 97
--- NOTE | 2024-05-01 13:38 | OP_ITS ---
DATE OF SERVICE: 05/01/2024 SURGEON: Amilcar Elder MD INDICATIONS: The patient presents for evaluation of dysphagia and abnormal barium swallow. Full consent has been obtained from him for this, including risks of bleeding and perforation. PREOPERATIVE DIAGNOSIS: POSTOPERATIVE DIAGNOSIS: PROCEDURE PERFORMED: Esophagogastroduodenoscopy with balloon dilation of gastroesophageal junction. ESTIMATED BLOOD LOSS: COMPLICATIONS: ANESTHESIA: Monitored anesthesia care. ASSISTANTS: SPECIMENS: PREOPERATIVE DIAGNOSES: Dysphagia and abnormal barium swallow. POSTOPERATIVE DIAGNOSES: Dysphagia, abnormal barium swallow, small hiatal hernia, minimal gastric retention. DESCRIPTION OF PROCEDURE: The patient was placed in the left lateral decubitus position. The Olympus video gastroscope was passed in the posterior oropharynx and upper esophagus under direct vision. The scope was passed slowly to the distal esophagus. The gastroesophageal junction appeared at 36 cm. With insufflation of air, this area appeared to open normally and allow easy passage of the scope, although there were some edema and erythema at the gastroesophageal junction. There was no esophagitis nor Goetz esophagus. There was a small hiatal hernia. The scope was advanced to the gastric antrum. The gastric motility appeared normal. In the stomach, was a small amount of retained food, but at that point, the anesthesiologist felt that we would probably need to come out, so as to minimize risk of aspiration. The pyloric channel appeared normal. I did not cannulate the duodenum. I did not retroflex due to the residual food. The stomach appeared grossly normal. The scope was withdrawn back to the esophagus. I did use a [employer] incremental esophageal balloon to dilate the gastroesophageal junction from 19 mm to 20 mm at the recommended pressure for up to 60 seconds each. Post dilation, there was really no appreciable heme noted. The scope was withdrawn through the remainder of the esophagus, which appeared normal. The scope was withdrawn from the patient. Of note, the upper esophageal sphincter was easily passed with the scope and there was no sign of any ring nor stricture at this area. The patient tolerated the procedure well and was returned to the recovery area in stable condition. IMPRESSION: 1. Hiatal hernia. 2. Mild gastric retention. PLAN: The patient will continue his regimen of omeprazole. He currently reports that his dysphagia is not particularly frequent. He may be having some esophageal spasm or simply may be eating too fast in regard to the dysphagia. If things are stable, he will see me on a p.r.n. basis. I do not think any further evaluation of this is presently required. He will be due for a followup colonoscopy in 2026. MD MIMI Nair/MADELINE / [id number]
== END 2024-05-01 13:28 | disposition home or self-care (01) ==
PROVIDERS: Visit Provider Internal Medicine
PROC: (CPT 43249; principal; 2024-05-01 12:00)
DX: R93.3 Abnormal findings on diagnostic imaging of other parts of digestive tract (principal); R13.19 Other dysphagia; K31.89 Other diseases of stomach and duodenum; K44.9 Diaphragmatic hernia without obstruction or gangrene; K21.9 Gastro-esophageal reflux disease without esophagitis; I10 Essential (primary) hypertension; F25.0 Schizoaffective disorder, bipolar type; C64.9 Malignant neoplasm of unspecified kidney, except renal pelvis; Z85.038 Personal history of other malignant neoplasm of large intestine; Z90.49 Acquired absence of other specified parts of digestive tract; Z79.899 Other long term (current) drug therapy; Z88.8 Allergy status to other drugs, medicaments and biological substances; L23.1 Allergic contact dermatitis due to adhesives
CPT/HCPCS: 43249; C1726; J2003; J2704

== ENCOUNTER 2024-05-28 14:10 | Outpatient (REF) | payer OTHER, SELFPAY ==
--- NOTE | ~2024-05-28 | US_ITS ---
EXAMINATION: US LOWER EXTREMITY VEINS LIMITED FOLLOW UP LEFT HISTORY: LEG SWELLING COMPARISON: Comparison is made with the prior examination dated 02/24/2019. TECHNIQUE: Duplex and color Doppler sonographic examination of the deep venous system of the left lower extremity was performed. FINDINGS: The common femoral, superficial femoral, and popliteal veins are patent demonstrating normal compressibility, spontaneous flow, and augmentation. There is a normal color and spectral Doppler waveform appearance of the visualized deep venous system above the knee. The posterior tibial and peroneal veins are patent. US/US venous duplex LE LT IMPRESSION: No evidence of acute DVT in the left lower extremity. Electronically signed by: Amilcar Esquivel MD 05/28/2024 03:30 PM EDT
--- OUTSIDE RECORDS SUMMARY | 2024-05-28 17:59 | XMS_ITS | Patient Health Record ---
Author Organization [facility] Address [address] [place] [address] Care Team Providers Care Combat Control Name Role Phone Neftaly NIXON, Angelo Primary Care Provider Amilcar Cheema Unavailable [phone] Allergies Allergen (clinical drug ingredient) Drug/Non Drug Allergy documented on EMR Reaction Allergy Type Onset Date Status Haldol Unknown Drug Allergy Active Results Component Value Reference Range Notes Pathology Reviewed date:08/11/2023 11:20:26 PM Interpretation: Performing Lab:[facility], [address] [place] [id number] Notes/Report: Name: Oscar Begum ge/Sex: 63/M : 1960 Unit#: [id number] Attend Dr: Amilcar Elder Re07/31/23 Status : [facility] Location: [facility] Disch: SPEC : [id number] REC -1211 STATUS: AMARJIT KHAN NUM: [id number] JAVIER: 07/31/23-1119 [facility] DR: Amilcar Elder ENTERED: 07/31/23- 23 SP TYPE: Surgical OTHR DR: Angelo Higginbotham MD ORDERED: HE Stain/3, Gross Micro L4 Diagnosis Colon, 40 cm, polype ctomy: Tubular adenoma; negative for high-grade dysplasia or carcinoma. Clinical History Pre-Op Dx: Screening Post-Op Dx: Polyp, diverticulosis, and hemorrhoids Microscopic Description Microscopic sections reviewed. Material Received Polyp @ 40 cm Gross Description Received in formalin labeled ?polyp at 40 cm? is a 0.3 cm rudolph papular tissue fragment, submitted in toto in a cassette labeled A. CEDS Copies To: Angelo Higginbotham MD [address] [place] [address] [address] [place], [place] [id number] Amilcar Elder [address] [place] [address] [address] [place] [address] Signed (si gnature on file) Sebastian Lancaster MD 08/02/23 0643 END OF REPORT Reason For Referral No Information Medications Medication SIG (Take, Route, Frequency, Duration) Notes Start Date End Date Status OLANZapine 10 MG TAKE 3 TABLETS BY MO UTH AT BEDTIME Oral for 30 Active Omeprazole 20 MG Oral for 30 A ctive Divalproex Sodium ER 500 MG TAKE 2 TABLE TS BY MOUTH AT BEDTIME Oral for 30 Active Divalproex Sodium 250 MG Oral for 30 Active D3-1000 25 MCG (1000 UT) Oral for 30 Active Benztropine Mesylate 1 MG Oral for 30 Active Finasteride 5 MG TAKE 1 TABLET BY TOMÁS TH ONCE DAILY Oral for 30 Active MiraLax (colon prep) 17 GM/SCOOP 1 238Gm bottle of mixed with Gatorade or Crystal Light Orally begin at 5:00 p.m. the day before the procedure for 1 day 11/01/2022 Active Cogentin Active Dulcolax (colon prep) 5 MG take at 3:00 p.m and 7:00p.m. Orally two tablets twice a day for one day for 1 day 11/01/2022 Active ZyPREXA 20 MG 1 and half tablet Or ally Once a day Active MiraLax (colon prep) 17 GM/SCOOP Take 1/2 of a 238Gm bottle mixed in 1 quart of gatorade 2 days before the colonoscopy, and then take 1 Full 238Gm bottle mixed with 2 quarts of Gatorade or Crystal Light Orally Take the 1/2 bottle of Miralax 2 days before the colonoscopy, and then begin the full bottle of Miralax the day before the colonoscopy at 5:00 p.m. the day before the procedure for 2 days 05/11/2023 Active Metoprolol Tartrate 25 MG 1 tablet with food Orally Twice a day Active Dulcolax (colon prep) 5 MG Take 2Dulcola x two days before the colonoscopy, and then take 2 at 3:00 p.m and 7:00p.m. the day before the colonoscopy Orally Two tablets two days before the colonoscopy, and then on the day before the colonoscopy take two tablets twice a day for one day for 2 days 05/11/2023 Active chlorproMAZINE HCl 25 MG Oral for 30 Active Amantadine HCl 100 MG 1 tablet Orally on ce a day Unknown Docusate Sodium 100 MG TAKE 1 CAPSULE BY MOUTH two (2) times a day NEEDED Oral for 30 Active Immunizations Vaccine Route Administration Date Status Comme nts Flu vaccine no Preserv 3 and > Unknown 12/22/2013 Admin istered Flu vaccine no Preserv 3 and > Unknown 02/21/2016 Admin istered Influenza Unknown 10/27/2019 Refused Influenza Unknown 03/20/2024 Refused Problems Problem Type SNOMED Code ICD Code Onset Dates Problem Status W/U Status Risk Notes Problem 993921721 Encounter for screening for malignant neoplasm of colon (Z12.11) Active confirmed Problem Diverticular disease of colon (237457473) Diverticulosis of large intestine without perforation or abscess without bleeding (K57.30) Active confirmed Problem History of gastrointestinal tract bypass (722698897) Intestinal bypass and anastomosis status (Z98.0) Active confirmed Problem 484068531099802 Preprocedural examination (Z01.818) Active confirmed Problem History of polyp of colon (555885513) History of colon polyps (Z86.010) Active confirmed Problem 402558424 Aspirin long-ter m use (Z79.82) Active confirmed Problem 863667049 History of colon cancer (Z85.038) Active confirmed Problem 63963896 Oropharyngeal dysphagia (R13.12) Active confirmed Problem History of malignant neoplasm of colon (539693049) Personal history of colon cancer (Z85.038) Active confirmed Problem 989667747 Hx of adenomatou s colonic polyps (Z86.010) Active confirmed Problem Barium swallow abnormal (107386880) Abnormal barium swallow (R93.3) Active confirmed Problem Esophageal dysphagia (22378810) Esophageal dysphagia (R13.19) Active confirmed Vital Signs Temperature 96.8 degrees Fahrenheit 03/20/2024 Blood pressure diastolic 00 mm Hg 03/20/2024 Height 67.5 in 03/20/2024 Blood pressure systolic 000 mm Hg 03/20/2024 Weight 206 lbs 03/20/2024 BMI 31.78 kg/m2 03/20/2024 Encounters Encounter Location Date Provider Diagnosis [facility] Outpatient [address] [place] [id number] 07/31/2023 Amilcar Elder Encounter for screen ing colonoscopy Z12.11 ; Colon polyps K63.5 ; Personal history of colon cancer Z85.038 ; Intestinal bypass and anastomosis status Z98.0 ; Diverticulosis of large intestine without perforation or abscess without bleeding K57.30 and Other hemorrhoids K64.8 [facility] Outpatient [address] [place] [address] [id number] 05/01/2024 Amilcar Elder Esophageal dysphagia R13.19 ; Hiatal hernia K44.9 and Abn findings-GI tract R93.3 [facility] [address] [place] [address] 03/20/2024 Amilcar Elder Esophageal dysphagia R13.19 and Abnormal barium swallow R93.3 [facility] [address] [place] [address] 02/27/2024 Amilcar Elder Assessments Encounter Date Diagnosis (ICD Code) Assessment Notes Treatment Notes Treatment Clinical Notes Section Notes 07/31/2023 Encounter for screening colonoscopy (ICD-10 - Z12.11) 07/31/2023 Colon polyps (ICD-10 - K63.5) 05/01/2024 Hiatal hernia (ICD-10 - K44.9) 05/01/2024 Esophageal dysphagia (ICD-10 - R13.19) 03/20/2024 Abnormal barium swallow (ICD-10 - R93.3) Overall, Oscar appears well. Given his symptomatology and barium swallow report, I did recommend an upper endoscopy with balloon dilation to see if that will give him some symptomatic improvement. Full consent is obtained for this, including risks of bleeding and perforation. His symptoms may be related to a mild distal esophageal stricture, or perhaps simply in relation to some esophageal dysmotility and gastroesophageal reflux. He was advised to continue his daily omeprazole as well. The procedure will be done with monitored anesthesia care. We did review his colonoscopy from last year and I did recommend a followup colonoscopy in 2026 for further screening and followup given his previous history of colon cancer. Oscar was comfortable with this plan. Thank you again for allowing me to participate in Oscar's care. I shall continue to keep you advised of his progress. 03/20/2024 Esophageal dysphagia (ICD-10 - R13.19) Overall, Oscar appears well. Given his symptomatology and barium swallow report, I did recommend an upper endoscopy with balloon dilation to see if that will give him some symptomatic improvement. Full consent is obtained for this, including risks of bleeding and perforation. His symptoms may be related to a mild distal esophageal stricture, or perhaps simply in relation to some esophageal dysmotility and gastroesophageal reflux. He was advised to continue his daily omeprazole as well. The procedure will be done with monitored anesthesia care. We did review his colonoscopy from last year and I did recommend a followup colonoscopy in 2027 for further screening and followup given his previous history of colon cancer. Oscar was comfortable with this plan. Thank you again for allowing me to participate in Oscar's care. I shall continue to keep you advised of his progress. 07/31/2023 Personal history of colon cancer (ICD-10 - Z85.038) 05/01/2024 Abn findings-GI tract (ICD-10 - R93.3) 07/31/2023 Intestinal bypass and anastomosis status (ICD-10 - Z98.0) 07/31/2023 Diverticulosis of large intestine without perforation or abscess without bleeding (ICD-10 - K57.30) 07/31/2023 Other hemorrhoids (ICD-10 - K64.8) 03/20/2024 Other Repeat colonoscopy in 2026 Overall, Oscar appears well. Given his symptomatology and barium swallow report, I did recommend an upper endoscopy with balloon dilation to see if that will give him some symptomatic improvement. Full consent is obtained for this, including risks of bleeding and perforation. His symptoms may be related to a mild distal esophageal stricture, or perhaps simply in relation to some esophageal dysmotility and gastroesophageal reflux. He was advised to continue his daily omeprazole as well. The procedure will be done with monitored anesthesia care. We did review his colonoscopy from last year and I did recommend a followup colonoscopy in 2026 for further screening and followup given his previous history of colon cancer. Oscar was comfortable with this plan. Thank you again for allowing me to participate in Oscar's care. I shall continue to keep you advised of his progress. Plan Of Treatment Pending Test Test Name Order Date MRI ABD W&WO CONTRAST 02/15/2012 XR BARIUM SWALLOW-ESOPHAGUS 10/27/2019 Future Test Test Name Order Date COLONOSCOPY 08/05/2014 COLONOSCOPY 07/31/2016 COLONOSCOPY 02/05/2019 COLONOSCOPY 11/01/2022 UPPER GI ENDOSCOPY [place] DILATION OF ESOPH 03/20/2024 Insurance Providers Payer Name Payer Address Payer Phone Subscriber Number Group Number Insured Name Patient Relationship to Insured Coverage Start Date Coverage End Date [facility] [address] Attn [place] [id number] Self - patient is the insured Medical (General) History Medical History History ICD Code Schizophrenia Colon cancer-stage IIA-- gerardo gnosed in 01/2012--underwent a left colectomy with Dr. Jose in 02/2012-saw Dr. Carter in and she did not feel he needed any adjuvant Rx Denies PR,DM,CVA,Lung disease,renal dise ase GERD-EGD with dilation in -no esophagitis, no stricture, hyperplastic gastric polyps Colonoscopy in February of 2013 was nega tive other than a hyperplastic polyp Colonoscopy in 10/2014--several tubular a denomas removed Renal cancer--right kidney-- treated with cryoablation in 12/2017--sees Dr. 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 Meléndez o--07/2018 Gtube in 2018 during [facility] n
--- OUTSIDE RECORDS SUMMARY | 2024-05-28 17:59 | XMS_ITS ---
Author Organization [facility] Address [address] [place] [address] Care Team Providers Care Lighting Adviser Name Role Phone Neftaly NIXON, Angelo Primary Care Provider Amilcar Cheema Unavailable [phone] Allergies Allergen (clinical drug ingredient) Drug/Non Drug Allergy documented on EMR Reaction Allergy Type Onset Date Status Haldol Unknown Drug Allergy Active REASON FOR VISIT Patient presents today for a choking episode Medications Medication SIG (Take, Route, Frequency, Duration) Notes Start Date End Date Status Benztropine Mesylate 1 MG Oral for 30 Active Finasteride 5 MG TAKE 1 TABLET BY TOMÁS TH ONCE DAILY Oral for 30 Active MiraLax (colon prep) 17 GM/SCOOP 1 238Gm bottle of mixed with Gatorade or Crystal Light Orally begin at 5:00 p.m. the day before the procedure for 1 day 11/01/2022 Active Dulcolax (colon prep) 5 MG take at 3:00 p.m and 7:00p.m. Orally two tablets twice a day for one day for 1 day 11/01/2022 Active MiraLax (colon prep) 17 GM/SCOOP Take [...] the procedure for 2 days 05/11/2023 Active Omeprazole 20 MG Oral for 30 A ctive Divalproex Sodium 250 MG Oral for 30 Active D3-1000 25 MCG (1000 UT) Oral for 30 Active chlorproMAZINE HCl 25 MG Oral for 30 Active Docusate Sodium 100 MG TAKE 1 CAPSULE BY MOUTH two (2) times a day NEEDED Oral for 30 Active OLANZapine 10 MG TAKE 3 TABLETS BY MO UTH AT BEDTIME Oral for 30 Active Divalproex Sodium ER 500 MG TAKE 2 TABLE TS BY MOUTH AT BEDTIME Oral for 30 Active Cogentin Active ZyPREXA 20 MG 1 and half tablet Or ally Once a day Active Metoprolol Tartrate 25 MG 1 tablet [...] one day for 2 days 05/11/2023 Active Amantadine HCl 100 MG 1 tablet Orally on ce a day Unknown Immunizations Vaccine Route Administration Date Status Comme nts Influenza Unknown 03/20/2024 Refused Problems Problem Type SNOMED Code ICD Code Onset Dates Problem Status W/U Status Risk Notes Problem Esophageal dysphagia (37098061) Esophageal dysphagia (R13.19) Active confirmed Problem Barium swallow abnormal (779044911) Abnormal barium swallow (R93.3) Active confirmed Vital Signs Temperature 96.8 degrees Fahrenheit 03/20/19 25 Blood pressure systolic 000 mm Hg 03/20/19 25 Blood pressure diastolic 00 mm Hg 025 Height 67.5 in 03/20/2024 Weight 206 lbs 03/20/2024 BMI 31.78 kg/m2 03/20/2024 Encounters Encounter Location Date Provider Diagnosis [facility] [address] [place] [address] 03/20/2024 Amilcar Elder Esophageal dysphagia R13.19 and Abnormal barium swallow R93.3 Assessments Encounter Date Diagnosis (ICD Code) Assessment Notes Treatment Notes Treatment Clinical Notes Section Notes 03/20/2024 Esophageal dysphagia (ICD-10 - R13.19) Overall, [...] keep you advised of his progress. 03/20/2024 Abnormal barium swallow (ICD-10 - R93.3) [...] keep you advised of his progress. 03/20/2024 Other Repeat colonoscopy in 2026 Overall, [...] advised of his progress. Plan Of Treatment Treatment Notes Assessment Notes Other Repeat colonoscopy i n 2026 Future Test Test Name Order Date UPPER GI ENDOSCOPY BALLOOMITCHELL FONTANEZ 03/20/2024 Next Appt Details Follow Up: prn, Reason: Progress Notes * OSCAR BEGUMDOB:1960 ([age] yo M)Acc No.[id number]:03/20/2024 Progress Notes Patient:OSCAR CARVALHO Provider:?Amilcar Elder MD :1960???Age:64 Y???Sex:Male Aron e:03/20/2024 Address:[address] [place], [place] [id number] Pcp:Angelo Higginbotham MD Subjective: * Chief Complaints: * ???Patient presents today fo r a choking episode * HPI: ???incontinence:? I saw Oscar in followup today in regard to some recent worsening dysphagia, abnormal barium swallow, and his personal history of colon cancer. He was accompanied by his Direct Care Worker from [facility], [facility]. ?I last saw Oscar in July of 2023, at which time he underwent a followup surveillance colonoscopy with removal of a small tubular adenoma. He has had a fairly long-standing history of intermittent dysphagia but this seems to be increasing in frequency and is now occasionally associated with having to regurgitate the food item to relieve his symptoms. He did undergo an upper endoscopy in 2011 with a balloon dilation, although there was no definitive evidence of an esophageal stricture at that time. He does take omeprazole regularly for previous heartburn with good relief of that. He denies any anorexia, nausea, vomiting, nor early satiety. He denies abdominal pain, jaundice, nor unintentional weight loss. He reports that his bowel movements have been fairly regular and without any signs of bleeding. ?As you know, he did have an upper GI series in January describing some mild cricopharyngeal achalasia, mild narrowing of the gastroesophageal junction suggestive of a benign stricture, gastritis, and some esophageal dysmotility. There was no evidence of a hiatal hernia nor significant reflux. * ROS:?General/Constitutional:?Change in appetite?denies.?Chills?denies.?Fatigue?denies.?Ophthalmologic:?Patient denies? Negative..?ENT:?Patient denies?Negative..?Respiratory:?Patient denies?No coughing/hemoptysis..?Cardiovascular:?Patient denies? No chest pain/orthopnea..?Gastrointestinal:?Comments?See HPI for details.?Genitourinary:?Patient denies? No dysuria/hematuria..?Musculoskeletal:?Patient denies? No specific arthralgias/myalgias..?Skin:?Patient denies?No rash/pruritus..?Neurologic:?Patient denies? No headaches/seizures..?Psychiatric:?Patient denies?Schizophrenia.? * Medical History:? * Surgical History:?Cataracts and lens implants Colon cancer surgery as above Left inguinal hernia surgery-Dr. Amato--07/2018 Gtube in 2018 during long hospitalization * Hospitalization/Major Diagno stic Procedure:?No Hospitalization History. * Family History:?Father: meri wild 94 yrs.?Mother: 88 yrs.?Paternal uncle: colon cancer in his 50.?Siblings: sister with breast cancer and colon polyps.? No 1st degree relatives with colorectal cancer. NO family history of liver cancer. * Social History:?Tobacco Use:?Tobacco Use/Smoking?Are you a: nonsmoker.?Drugs/Alcohol:?Alcohol Screen?Points: 0, Interpretation: Negative.?Miscellaneous:?Marital status: single. Occupation: unemployed. ???Nonsmoker; no alcohol. * Medications:?TakingCogentin ZyPREXA 20 MG Tablet 1 and half tablet Orally Once a dayMetoprolol Tartrate 25 MG Tablet 1 tablet with food Orally Twice a daychlorproMAZINE HCl 25 MG Tablet Oral Docusate Sodium 100 MG Capsule TAKE 1 CAPSULE BY MOUTH two (2) times a day NEEDED Oral Omeprazole 20 MG Capsule Delayed Release Oral Divalproex Sodium 250 MG Tablet Delayed Release Oral D3-1000 25 MCG (1000 UT) Capsule Oral Benztropine Mesylate 1 MG Tablet Oral Finasteride 5 MG Tablet TAKE 1 TABLET BY MOUTH ONCE DAILY Oral MiraLax (colon prep) 17 GM/SCOOP Powder 1 238Gm bottle of mixed with Gatorade or Crystal Light Orally begin at 5:00 p.m. the day before the procedureDulcolax (colon prep) 5 MG Tablet Delayed Release take at 3:00 p.m and 7:00p.m. Orally two tablets twice a day for one dayMiraLax (colon prep) 17 GM/SCOOP Powder Take 1/2 of a 238Gm bottle mixed [...] at 5:00 p.m. the day before the procedureDulcolax (colon prep) 5 MG Tablet Delayed Release Take 2Dulcolax two days before the colonoscopy, and then take 2 at 3:00 p.m and 7:00p.m. the day before the colonoscopy Orally Two tablets two days before the colonoscopy, and then on the day before the colonoscopy take two tablets twice a day for one dayOLANZapine 10 MG Tablet TAKE 3 TABLETS BY MOUTH AT BEDTIME Oral Divalproex Sodium ER 500 MG Tablet Extended Release 24 Hour TAKE 2 TABLETS BY MOUTH AT BEDTIME Oral Taking Cogentin Taking ZyPREXA 20 MG Tablet 1 and half tablet Orally Once a dayTaking Metoprolol Tartrate 25 MG Tablet 1 tablet with food Orally Twice a dayTaking chlorproMAZINE HCl 25 MG Tablet Oral Taking Docusate Sodium 100 MG Capsule TAKE 1 CAPSULE BY MOUTH two (2) times a day NEEDED Oral Taking Omeprazole 20 MG Capsule Delayed Release Oral Taking Divalproex Sodium 250 MG Tablet Delayed Release Oral Taking D3-1000 25 MCG (1000 UT) Capsule Oral Taking Benztropine Mesylate 1 MG Tablet Oral Taking Finasteride 5 MG Tablet TAKE 1 TABLET BY MOUTH ONCE DAILY Oral Taking MiraLax (colon prep) 17 GM/SCOOP Powder 1 238Gm bottle of mixed with Gatorade or Crystal Light Orally begin at 5:00 p.m. the day before the procedureTaking Dulcolax (colon prep) 5 MG Tablet Delayed Release take at 3:00 p.m and 7:00p.m. Orally two tablets twice a day for one dayTaking MiraLax (colon prep) 17 GM/SCOOP Powder Take 1/2 of a 238Gm bottle mixed [...] at 5:00 p.m. the day before the procedureTaking Dulcolax (colon prep) 5 MG Tablet Delayed Release Take 2Dulcolax two days before the colonoscopy, and then take 2 at 3:00 p.m and 7:00p.m. the day before the colonoscopy Orally Two tablets two days before the colonoscopy, and then on the day before the colonoscopy take two tablets twice a day for one dayTaking OLANZapine 10 MG Tablet TAKE 3 TABLETS BY MOUTH AT BEDTIME Oral Taking Divalproex Sodium ER 500 MG Tablet Extended Release 24 Hour TAKE 2 TABLETS BY MOUTH AT BEDTIME Oral UnknownAmantadine HCl 100 MG Capsule 1 tablet Orally once a dayMedication List reviewed and reconciled with the patientUnknown Amantadine HCl 100 MG Capsule 1 tablet Orally once a dayMedication List reviewed and reconciled with the patient * Allergies:?Jyothi[Allergi es Verified] Objective: * Vitals:?Wt: 206 lbs, Ht: 67. 5 in, BMI:31.78 Index, BP: 000/00 mm Hg, Temp: 96.8. * Examination: ???General Examination: ?GENERAL APPEARANCE:?pleasant, well nourished, well developed, in no acute distress.?EYES:?sclera non-icteric.?ORAL CAVITY:?mucosa moist.?NECK/THYROID:?no cervical lymphadenopathy, neck supple.?SKIN:?nonjaundiced, no spider angiomata..?HEART:?S1, S2 normal.?LUNGS:?clear to auscultation bilaterally.?ABDOMEN:?normal bowel sounds, no guarding or rigidity, no hepatosplenomegaly, no masses palpable, soft, nontender, nondistended..?EXTREMITIES:?no edema.?NEUROLOGIC:?alert and oriented.? Assessment: * Assessment: 1.?Esophageal dysphagia - R1 3.19 (Primary)?2.?Abnormal barium swallow - R93.3? Overall, Oscar appears well. Given his symptomatology [...] to keep you advised of his progress. Plan: * Treatment: 2.?Abnormal barium swallow?Procedure: UPPER GI ENDOSCOPY BALLOOON DILATION OF ESOPH (Ordered for 03/20/2024)* with MACsched for 05/01/24 at 11:50 am 3.?Others? Notes: Repeat colonoscopy in 2026?? * Immunizations:? Influenza (Not administered - Refused: Patient decision) * Procedure Codes:?3017F COLOR ECTAL CA SCREEN DOC [id number] TOBACCO NON-SEXCD9094 BP SCR NOT PRFRM REC REASON NOS * Preventive Medicine:? ??Counseling:?Care goal follow-up plan:?Above Normal BMI Follow-up?Giving encouragement to exercise,?BMI management provided?Yes.? * Follow Up:?prn * * Sign off status: Completed true * Provider:?Amilcar Elder MD Date:? 025 Generated for Gabriela sen/Michel/eTransmitting on:?05/28/2024 10:54 AM EDT History and Physical Notes * HPI (History of Present Illness) Category Sub-Category Detail Notes Category Not es incontinence I saw Oscar in followup today in regard to some recent worsening dysphagia, abnormal barium swallow, and his personal history of colon cancer. He was accompanied by his Direct Care Worker from [facility], [facility]. I last saw Oscar in July of 2023, at which time he underwent a followup surveillance colonoscopy with removal of a small tubular adenoma. He has had a fairly long-standing history of intermittent dysphagia but this seems to be increasing in frequency and is now occasionally associated with having to regurgitate the food item to relieve his symptoms. He did undergo an upper endoscopy in 2011 with a balloon dilation, although there was no definitive evidence of an esophageal stricture at that time. He does take omeprazole regularly for previous heartburn with good relief of that. He denies any anorexia, nausea, vomiting, nor early satiety. He denies abdominal pain, jaundice, nor unintentional weight loss. He reports that his bowel movements have been fairly regular and without any signs of bleeding. As you know, he did have an upper GI series in January describing some mild cricopharyngeal achalasia, mild narrowing of the gastroesophageal junction suggestive of a benign stricture, gastritis, and some esophageal dysmotility. There was no evidence of a hiatal hernia nor significant reflux. Examination Category Sub-Category Detail Notes Category Not es General Examination GENERAL APPEARANCE: pleasant , well nourished, well developed, in no acute distress EYES: sclera non-icteric NECK/THYROID: no cervical lymphade nopathy, neck supple HEART: S1, S2 normal LUNGS: clear to auscultatio n bilaterally ABDOMEN: normal bowel sounds, no guarding or rigidity, no hepatosplenomegaly, no masses palpable, soft, nontender, nondistended. NEUROLOGIC: alert and oriented SKIN: nonjaundiced, no spi malu angiomata. EXTREMITIES: no edema ORAL CAVITY: mucosa moist
--- OUTSIDE RECORDS SUMMARY | 2024-05-28 17:59 | XMS_ITS ---
Author Organization [facility] Address [address] [place] [address] Care Team Providers Care Appliance Repair Technician Name Role Phone Neftaly NIXON, Angelo Primary Care Provider Amilcar Cheema [phone] Encounters Encounter Location Date Provider Diagnosis [facility] [address] [place] [phone] 02/27/2024 Amilcar Elder Plan Of Treatment No Information Progress Notes * OSCAR BEGUMDOB:1960 ([age] yo M)Acc No.[id number]:02/27/2024 Patient:?OSCAR BEGUM :1960???Age:64 Y???Sex:Male Address:[address] [place] [address] , [place], [address] * true * Date:? Generated for Gabriela sen/Michel/eTransmitting on:?05/28/2024 10:54 AM EDT
--- OUTSIDE RECORDS SUMMARY | 2024-05-28 17:59 | XMS_ITS ---
Author Organization Angelo Higginbotham MD Address [address] [place] [phone] Care Team Providers Care Electronic Component Processor Name Role Phone Neftaly Angelo Primary Care Provider [phone] Allergies Allergen (clinical drug ingredient) Drug/Non Drug Allergy documented on EMR Reaction Allergy Type Onset Date Status Haldol seizure Drug Allergy Active REASON FOR VISIT SWOLLEN left KNEE since his fall in April Medications Medication SIG (Take, Route, Frequency, Duration) Notes Start Date End Date Status Furosemide 20 MG 1 tablet Orally Once a day for 30 day(s) 05/28/2024 Active Amantadine HCl 100 MG 1 capsule Orally T wice a day for 30 day(s) Not-Taking Aspirin 325 MG 1 tablet Orally Once a day Not-Taking Senna 8.6 MG 1 tablets at bedtime as needed Orally Once a day for 30 days 10/24/2015 Not-Taking Vistaril 25 MG 1 capsule as needed Orally every 8 hrs Not-Taking Vitamin D3 25 MCG (1000 UT) 1 tablet Orally Once a day Active Docusate Sodium 100 mg TAKE 1 CAPSULE BY MOUTH two (2) times a day NEEDED for 90 Active Ibuprofen 800 MG 1 tablet with food o r milk as needed Orally Three times a day for 10 days 12/04/2018 Not-Taking traZODone HCl 100 MG 1 tablet at bedtime as needed Orally Once a day Not-Taking Severy Carbonate 150 MG 3 capsule Orally BID Not-Taking D3-1000 25 MCG (1000 UT) TAKE 1 CAPSULE BY MOUTH ONCE DAILY for 90 Active Omeprazole 20 mg TAKE 1 CAPSULE BY MO UTH ONCE DAILY 30 MINUTES BEFORE BREAKFAST for 90 Active Finasteride 5 mg TAKE 1 TABLET BY TOMÁS TH ONCE DAILY for 90 Active Metoprolol Tartrate 25 mg TAKE 1 TABLET BY MOUTH two (2) times a day for 30 Active ZyPREXA 10 MG 3 tablet Orally Once a day Active Depakote ER 250 MG 250mg QAM Orally Onc e a day Active Depakote ER 500 MG 2 tabs Orally hs Active Thorazine 25mg tid Active Benztropine Mesylate 1 MG 1 tablet at be dtime Orally Once a day prn Active PriLOSEC OTC 20 MG 1 tablet 30 minutes before morning meal Orally Once a day Active ZyPREXA 10 MG 3 tablet Orally Once a day Active Cogentin Active Vital Signs Blood pressure systolic 112 mm Hg 05/29/19 25 Blood pressure diastolic 70 mm Hg 025 Height 68 in 05/28/2024 Weight 210 lbs 05/28/2024 BMI 31.93 kg/m2 05/28/2024 weight is up 4 pounds since 05-08-24 Encounters Encounter Location Date Provider Diagnosis Angelo Higginbotham MD [address] [place] [address] [place] [phone] 05/28/2024 Angelo Higginbotham Leg swelling M79.89 Assessments Encounter Date Diagnosis (ICD Code) Assessment Notes Treatment Notes Treatment Clinical Notes Section Notes 05/28/2024 Leg swelling (ICD-10 - M79.89) order given to patient , pending Stat diagnostic testing, patient/caregiver verbalized understanding of medication and directions for use. Plan Of Treatment Medication Medication Name Sig Start Date Stop Date Notes Furosemide 20 MG 1 tablet Orally Once a day for 30 day(s) 05/28/2024 Treatment Notes Assessment Notes Leg swelling order given to patie nt , pending Stat diagnostic testing, patient/caregiver verbalized understanding of medication and directions for use. Pending Test Test Name Order Date US LEG LT VENOUS DOPPLER 05/28/2024 Next Appt Details Follow Up: 2 - 3 Days, Adele n: Provider Name:Angelo Gomez ier, 08/24/2024 02:00:00 PM, [address] [place] [address], Suite [facility], [place], [place], [phone], Provider Name:Angelo Gomez ier, 02/22/2025 07:00:00 AM, [address] [place] [address], [address] [facility], [place], [place], [phone], Provider Name:Angelo Gomez ier, 03/01/2025 01:00:00 PM, [address] [place] [address], Suite [facility], [place], [place], [phone], Progress Notes * Yomi BEGUM WDOB:1960 (64 yo M)Acc No.[id number]:05/28/2024 Patient:?Yomi BEGUM Provider:?Angelo Higginbotham MD :1960???Age:64 Y???Sex:Male Aron e:05/28/2024 Address:[address] [place], [place] [phone] Subjective: * Chief Complaints: * ???1. SWOLLEN left KNEE sinc e his fall in April. * HPI: ???Symptom(s):?patient is a 64 yo male here with complaint of left leg and left foot swollen. * ROS:?General/Constitutional:?Denies?Chills.?Denies?Fatigue.?Denies?Fever.?Denies?Headache.?ENT:?Patient denies?decreased sense of smell, any loss of taste, sore throat.?Denies?Sore throat.?Respiratory:?Denies?Cough.?Denies?Shortness of breath at rest.?Denies?Shortness of breath with exertion.?Gastrointestinal:?Denies?Diarrhea.?Denies?Nausea.?Musculoskeletal:?Patient denies?muscle aches.?Peripheral Vascular:?Patient denies?red and blue toes.? * Medical History:?Schizophren ia, Pre diabetes, colonoscopy 02/11/2012; colonoscopy 02/23/13 - f/u 1 year; colonoscopy done 11/01/2014 w/Dr. Elder - repeat 2 yrs; Colonoscopy done by Dr. Elder 10/12/16 - repeat 2 years; colonoscopy booked for 04/22/19 w/Dr. Elder; 04/22/[address] Elder - repeat 2-3 yrs.11/21/22 LTD Colonoscopy repeat this year or next due to poor prep, Colonoscopy 2023 adenoma repeat in 3 years. * Medications:?Taking Cogentin , Taking ZyPREXA 10 MG Tablet 3 tablet Orally Once a day , Taking Depakote ER 250 MG Tablet Extended Release 24 Hour 250mg QAM Orally Once a day , Taking Depakote ER 500 MG Tablet Extended Release 24 Hour 2 tabs Orally hs , Taking Benztropine Mesylate 1 MG Tablet 1 tablet at bedtime Orally Once a day prn , Taking Thorazine 25mg tid , Taking PriLOSEC OTC 20 MG Tablet Delayed Release 1 tablet 30 minutes before morning meal Orally Once a day , Taking ZyPREXA 10 MG Tablet 3 tablet Orally Once a day , Taking Metoprolol Tartrate 25 mg Tablet TAKE 1 TABLET BY MOUTH two (2) times a day , Taking Finasteride 5 mg Tablet TAKE 1 TABLET BY MOUTH ONCE DAILY , Taking Omeprazole 20 mg Capsule Delayed Release TAKE 1 CAPSULE BY MOUTH ONCE DAILY 30 MINUTES BEFORE BREAKFAST , Taking D3-1000 25 MCG (1000 UT) Capsule TAKE 1 CAPSULE BY MOUTH ONCE DAILY , Taking Docusate Sodium 100 mg Capsule TAKE 1 CAPSULE BY MOUTH two (2) times a day NEEDED , Taking Vitamin D3 25 MCG (1000 UT) Tablet 1 tablet Orally Once a day , Not-Taking/PRN Severy Carbonate 150 MG Capsule 3 capsule Orally BID , Not-Taking/PRN traZODone HCl 100 MG Tablet 1 tablet at bedtime as needed Orally Once a day , Not-Taking/PRN Ibuprofen 800 MG Tablet 1 tablet with food or milk as needed Orally Three times a day , Not-Taking/PRN Vistaril 25 MG Capsule 1 capsule as needed Orally every 8 hrs , Not-Taking/PRN Senna 8.6 MG Tablet 1 tablets at bedtime as needed Orally Once a day , Not-Taking/PRN Aspirin 325 MG Tablet 1 tablet Orally Once a day , Not-Taking/PRN Amantadine HCl 100 MG Capsule 1 capsule Orally Twice a day , Medication List reviewed and reconciled with the patient * Allergies:?Haldol: seizure. Objective: * Vitals:?Ht: 68, Wt: 210, BMI :31.93, BP:112/70, Wt-k.26. weight is up 4 pounds since 05-08-24. * Examination: ???General Examination: ?GENERAL APPEARANCE:?alert, well hydrated, in no distress.?HEAD:?normocephalic.?SKIN:?good turgor.?HEART:?regular rate and rhythm, no murmurs, rubs, gallops.?LUNGS:?no wheezes, rales, rhonchi, good air movement, clear to auscultation bilaterally.?EXTREMITIES:?abnormal with swelling and tenderness of left calf and foot.? Assessment: * Assessment: 1.?Leg swelling - M79.89 (Pr imary)??? Plan: * Treatment: Notes: order given to patient , pending Stat diagnostic testing, patient/caregiver verbalized understanding of medication and directions for use.?? * Follow Up:?2 - 3 Days * * The named appointment provid er may or may not be the originator of this progress note, and it is not deemed complete until electronically signed by the appointment provider. Sign off status: Pending * Provider:?Angelo Higginbotham MD Date:?0 05/28/2024 Generated for Gabriela sen/Michel/Jaditting on:?05/28/2024 05:59 PM EDT History and Physical Notes * HPI (History of Present Illness) Category Sub-Category Detail Notes Category Not es Symptom(s) patient is a 64 yo male here with complaint of left leg and left foot swollen Examination Category Sub-Category Detail Notes Category Not es General Examination GENERAL APPEARANCE: alert, w ell hydrated, in no distress HEAD: normocephalic HEART: regular rate and rhy thm, no murmurs, rubs, gallops LUNGS: no wheezes, rales, r honchi, good air movement, clear to auscultation bilaterally SKIN: good turgor EXTREMITIES: abnormal with swelli ng and tenderness of left calf and foot
--- OUTSIDE RECORDS SUMMARY | 2024-05-28 17:59 | XMS_ITS ---
Author Organization Angelo Higginbotham MD Address [address] [facility] [address] [place] [phone] Care Team Providers Care Sound Engineer Name Role Phone Neftaly Angelo Primary Care Provider [phone] REASON FOR VISIT knee swollen Encounters Encounter Location Date Provider Diagnosis Angelo Higginbotham MD [address] [place] [address] [place] [phone] 05/28/2024 Angelo Higginbotham Plan Of Treatment Next Appt Details Provider Name:Angelo Gomez ier, 08/24/2024 02:00:00 PM, [address] [place] [address], [address], [phone], Provider Name:Angelo abel, 02/22/2025 07:00:00 AM, [address] [place] [address], [address], [phone], Provider Name:Angelo abel, 03/01/2025 01:00:00 PM, [address], [address], [place], [place], [phone], Progress Notes * Yomi BEGUM WDOB:1960 (64 yo M)Acc No.[id number]:05/28/2024 Patient:?SHY Yomi Alondra :1960???Age:64 Y???Sex:Male Address:[address] [place] [phone] * true * Date:? Generated for Gabriela sen/Michel/eTransmitting on:?05/28/2024 05:59 PM EDT
--- OUTSIDE RECORDS SUMMARY | 2024-05-28 17:59 | XMS_ITS ---
Author Organization Angelo Higginbotham MD Address [address] [place] [phone] Care Team Providers Care Tableau Lead Name Role Phone NeftalyAngelo Primary Care Provider [phone] Allergies Allergen (clinical drug ingredient) Drug/Non Drug Allergy documented on EMR Reaction Allergy Type Onset Date Status Haldol seizure Drug Allergy Active Reason For Referral Reason please luis alberto blank for physical therapy Diagnosis 1 Balance problem (R26 .89) Referral Organization Angelo Higginbotham MD Referring Provider First Name Angelo Referring Provider Last Name Neftaly Referring Provider Speciality Internal M edicine Referred Provider [facility] Referred Provider Specialty Physical The rapist General Notes Tabitha Sweeney 0 05/08/2024 10:50:39 AM >patient will be booking his on appt Referral Priority Routine Referral Appointment Date 05/08/2024 REASON FOR VISIT patient fell on Saturday didn't hit his head abd didn't go to the ER. Wants physical therapy orders, Patient has lost his balance 4 times over the past 6 months but does not always fall ?? PT Medications Medication SIG (Take, Route, Frequency, Duration) Notes Start Date End Date Status Senna 8.6 MG 1 tablets at bedtime as needed Orally Once a day for 30 days 10/24/2015 Not-Taking Vistaril 25 MG 1 capsule as needed Orally every 8 hrs Not-Taking Amantadine HCl 100 MG 1 capsule Orally T wice a day for 30 day(s) Not-Taking Aspirin 325 MG 1 tablet Orally Once a day Not-Taking Ibuprofen 800 MG 1 tablet with food o r milk as needed Orally Three times a day for 10 days 12/04/2018 Not-Taking D3-1000 25 MCG (1000 UT) TAKE 1 CAPSULE BY MOUTH ONCE DAILY for 90 Active Vitamin D3 25 MCG (1000 UT) 1 tablet Orally Once a day Active Docusate Sodium 100 mg TAKE 1 CAPSULE BY MOUTH two (2) times a day NEEDED for 90 Active traZODone HCl 100 MG 1 tablet at bedtime as needed Orally Once a day Not-Taking Lavallette Carbonate 150 MG 3 capsule Orally BID Not-Taking ZyPREXA 10 MG 3 tablet Orally Once a day Active Finasteride 5 mg TAKE 1 TABLET BY TOMÁS TH ONCE DAILY for 90 Active Metoprolol Tartrate 25 mg TAKE 1 TABLET BY MOUTH two (2) times a day for 30 Active Omeprazole 20 mg TAKE 1 CAPSULE BY MO UTH ONCE DAILY 30 MINUTES BEFORE BREAKFAST for 90 Active PriLOSEC OTC 20 MG 1 tablet 30 minutes before morning meal Orally Once a day Active Depakote ER 250 MG 250mg QAM Orally Onc e a day Active ZyPREXA 10 MG 3 tablet Orally Once a day Active Benztropine Mesylate 1 MG 1 tablet at be dtime Orally Once a day prn Active Depakote ER 500 MG 2 tabs Orally hs Active Thorazine 25mg tid Active Cogentin Active Problems Problem Type SNOMED Code ICD Code Onset Dates Problem Status W/U Status Risk Notes Problem 829305120 Balance problem (R26.89) Active confirmed Vital Signs Blood pressure systolic 112 mm Hg 05/08/19 25 Blood pressure diastolic 66 mm Hg 025 Height 68 in 05/08/2024 Weight 206 lbs 05/08/2024 BMI 31.32 kg/m2 05/08/2024 Encounters Encounter Location Date Provider Diagnosis Angelo Higginbotham MD [address] [place] [address] [address] [place], [place] [phone] 05/08/2024 Angelo Higginbotham Balance problem R26.89 ; Elbow injury, unspecified laterality, initial encounter S59.909A and Accidental fall, initial encounter W19.XXXA Assessments Encounter Date Diagnosis (ICD Code) Assessment Notes Treatment Notes Treatment Clinical Notes Section Notes 05/08/2024 Balance problem (ICD-10 - R26.89) referral to physical therapy at [facility] 05/08/2024 Elbow injury, unspecified laterality, initial encounter (ICD-10 - S59.909A) 05/08/2024 Accidental fall, initial encounter (ICD-10 - W19.XXXA) Plan Of Treatment Treatment Notes Assessment Notes Balance problem referral to physical therapy at [facility] Referrals Referral Date Details 05/08/2024 05/08/2024, please e leslie and treat for physical therapy, P.T. [facility] Next Appt Details Provider Name:Angelo Gomez ier, 08/24/2024 02:00:00 PM, [address] [place] [address], [address] [place] [address], [phone], Provider Name:Angelo Gomez ier, 02/22/2025 07:00:00 AM, [address] [place] [address], [address] [place] [address], [phone], Provider Name:Angelo Gomez ier, 03/01/2025 01:00:00 PM, [address] [place] [address], [address] [place] [address], [phone], Progress Notes * Yomi BEGUM WDOB:1960 (64 yo M)Acc No.[id number]:05/08/2024 Progress Notes Patient:?SHADIPANCHITOYomi W Provider:?Angelo Higginbotham MD :1960???Age:64 Y???Sex:Male Aron e:05/08/2024 Address:[address] [place], [place] [phone] Subjective: * Chief Complaints: * ???patient fell on Saturday didn't hit his head abd didn't go to the ER. Wants physical therapy ordersPatient has lost his balance 4 times over the past 6 months but does not always fall ?? PT * HPI: ???Fall Risk:?History?Have you had any falls with injury in the past year??Yes 05-06-24 patient slipped on the ice and laded on right elbow, did aiden gp to the ER,?Have you had two or more falls in the past year??Yes Patient has lost his balance 4 times over the past 6 months but does not always fall..?Symptom(s):? patient is a 64 yo male fell on ice landed on elbow/ fell on ice and hurt, has lost his balance several times lately, requesting referral to PT. * ROS:?General/Constitutional:?Denies?Chills.?Denies?Fatigue.?Denies?Fever.?Denies?Headache.?ENT:?Patient denies?decreased sense of smell, any loss of taste, sore throat.?Denies?Sore throat.?Respiratory:?Denies?Cough.?Denies?Shortness of breath at rest.?Denies?Shortness of breath with exertion.?Gastrointestinal:?Denies?Diarrhea.?Denies?Nausea.?Musculoskeletal:?Patient denies?muscle aches.?Peripheral Vascular:?Patient denies?red and blue toes.?Neurologic:?Admits?Balance difficulty.?Admits?Coordination.?Admits?Dizziness.?Denies?Headache.? * Medical History:? * Surgical History:? * Hospitalization/Major Diagno stic Procedure:? * Medications:?TakingCogentin ZyPREXA 10 MG Tablet 3 tablet Orally Once a day Depakote ER 250 MG Tablet Extended Release 24 Hour 250mg QAM Orally Once a day Depakote ER 500 MG Tablet Extended Release 24 Hour 2 tabs Orally hs Benztropine Mesylate 1 MG Tablet 1 tablet at bedtime Orally Once a day prn Thorazine 25mg tid PriLOSEC OTC 20 MG Tablet Delayed Release 1 tablet 30 minutes before morning meal Orally Once a day ZyPREXA 10 MG Tablet 3 tablet Orally Once a day Metoprolol Tartrate 25 mg Tablet TAKE 1 TABLET BY MOUTH two (2) times a day Finasteride 5 mg Tablet TAKE 1 TABLET BY MOUTH ONCE DAILY Omeprazole 20 mg Capsule Delayed Release TAKE 1 CAPSULE BY MOUTH ONCE DAILY 30 MINUTES BEFORE BREAKFAST D3-1000 25 MCG (1000 UT) Capsule TAKE 1 CAPSULE BY MOUTH ONCE DAILY Docusate Sodium 100 mg Capsule TAKE 1 CAPSULE BY MOUTH two (2) times a day NEEDED Vitamin D3 25 MCG (1000 UT) Tablet 1 tablet Orally Once a day Taking Cogentin Taking ZyPREXA 10 MG Tablet 3 tablet Orally Once a day Taking Depakote ER 250 MG Tablet Extended Release 24 Hour 250mg QAM Orally Once a day Taking Depakote ER 500 MG Tablet Extended Release 24 Hour 2 tabs Orally hs Taking Benztropine Mesylate 1 MG Tablet 1 tablet at bedtime Orally Once a day prn Taking Thorazine 25mg tid Taking PriLOSEC OTC 20 MG Tablet Delayed Release 1 tablet 30 minutes before morning meal Orally Once a day Taking ZyPREXA 10 MG Tablet 3 tablet Orally Once a day Taking Metoprolol Tartrate 25 mg Tablet TAKE 1 TABLET BY MOUTH two (2) times a day Taking Finasteride 5 mg Tablet TAKE 1 TABLET BY MOUTH ONCE DAILY Taking Omeprazole 20 mg Capsule Delayed Release TAKE 1 CAPSULE BY MOUTH ONCE DAILY 30 MINUTES BEFORE BREAKFAST Taking D3-1000 25 MCG (1000 UT) Capsule TAKE 1 CAPSULE BY MOUTH ONCE DAILY Taking Docusate Sodium 100 mg Capsule TAKE 1 CAPSULE BY MOUTH two (2) times a day NEEDED Taking Vitamin D3 25 MCG (1000 UT) Tablet 1 tablet Orally Once a day Not-Taking/PRNLithium Carbonate 150 MG Capsule 3 capsule Orally BID traZODone HCl 100 MG Tablet 1 tablet at bedtime as needed Orally Once a day Ibuprofen 800 MG Tablet 1 tablet with food or milk as needed Orally Three times a day Vistaril 25 MG Capsule 1 capsule as needed Orally every 8 hrs Senna 8.6 MG Tablet 1 tablets at bedtime as needed Orally Once a day Aspirin 325 MG Tablet 1 tablet Orally Once a day Amantadine HCl 100 MG Capsule 1 capsule Orally Twice a day Medication List reviewed and reconciled with the patientNot-Taking/PRN Lavallette Carbonate 150 MG Capsule 3 capsule Orally BID Not-Taking/PRN traZODone HCl 100 MG Tablet 1 tablet at bedtime as needed Orally Once a day Not-Taking/PRN Ibuprofen 800 MG Tablet 1 tablet with food or milk as needed Orally Three times a day Not-Taking/PRN Vistaril 25 MG Capsule 1 capsule as needed Orally every 8 hrs Not-Taking/PRN Senna 8.6 MG Tablet 1 tablets at bedtime as needed Orally Once a day Not-Taking/PRN Aspirin 325 MG Tablet 1 tablet Orally Once a day Not-Taking/PRN Amantadine HCl 100 MG Capsule 1 capsule Orally Twice a day Medication List reviewed and reconciled with the patient * Allergies:?Haldol: glen s[Allergies Verified] Objective: * Vitals:?Ht: 68, Wt: 206, BMI :31.32, BP:112/66, Wt-k.44. * Examination: ???General Examination: ?GENERAL APPEARANCE:?well developed, well nourished.?HEAD:?normocephalic.?EYES:?extraocular movement full and smooth.?HEART:?no murmurs, rubs, gallops, regular rate and rhythm.?LUNGS:?no wheezes, rales, rhonchi, good air movement, clear to auscultation bilaterally.?EXTREMITIES:?abnormal with a small abrasion on elbow no pain normal range of motion.? Assessment: * Assessment: 1.?Elbow injury, unspecified laterality, initial encounter - S59.909A (Primary)???2.?Balance problem - R26.89???3.?Accidental fall, initial encounter - W19.XXXA??? Plan: * Treatment: * Procedure Codes:? * * Sign off status: Completed true * Provider:?Angelo Higginbotham MD Date:?0 05/08/2024 Generated for Gabriela sen/Faxing/eTransmitting on:?05/28/2024 05:59 PM EDT History and Physical Notes * HPI (History of Present Illness) Category Sub-Category Detail Notes Category Not es Symptom(s) patient is a 64 yo male fell on ice landed on elbow/ fell on ice and hurt, has lost his balance several times lately, requesting referral to PT Fall Risk History Have you had any falls with injury in the past year?: Yes 05-06-24 patient slipped on the ice and laded on right elbow, did [facility]en gp to the ER Have you had two or more fal ls in the past year?: Yes Patient has lost his balance 4 times ove r the past 6 months but does not always fall. Examination Category Sub-Category Detail Notes Category Not es General Examination GENERAL APPEARANCE: well developed , well nourished HEAD: normocephalic EYES: extraocular movement full and smooth HEART: no murmurs, rubs, ga llops, regular rate and rhythm LUNGS: no wheezes, rales, r honchi, good air movement, clear to auscultation bilaterally EXTREMITIES: abnormal with a smal l abrasion on elbow no pain normal range of motion Consultation Request Notes Referral Date Referring Provider Referred Provider Not es 05/08/2024 Angelo Higginbotham Alfredo/[facility], P.T. please ev al and treat for physical therapy
--- OUTSIDE RECORDS SUMMARY | 2024-05-28 18:00 | XMS_ITS ---
Author Organization [facility] Address [address] [place] [address] Care Team Providers Care Public Interviewer Name Role Phone Neftaly NIXON, Angelo Primary Care Provider Amilcar Cheema Unavailable [phone] REASON FOR VISIT esophgeal dysphgia,abn barium swallow Encounters Encounter Location Date Provider Diagnosis [facility] [address] [place], [place] [phone] 05/01/2024 Amilcar Elder Esophageal dysphag ia R13.19 [...] * OSCAR BEGUMDOB:1960 ([age] yo M)Acc No.[id number]:05/01/2024 EGD/MAC Patient:?OSCAR BEGUM Provider:?Amilcar Elder MD :1960???Age:64 Y???Sex:Male Aron e:05/01/2024 Address:[address] [place], [place] [phone] Pcp:Angelo Higginbotham MD Subjective: * Chief Complaints: * ???1. Esophgeal dysphgia,abn barium swallow. * Medical History:? Objective: * Vitals:? Assessment: * Assessment: 1.?Esophageal dysphagia - R1 3.19 (Primary)???2.?Hiatal hernia - K44.9???3.?Abn findings-GI tract - R93.3??? Plan: * Treatment: * Procedure Codes:?55783 ESOPH ENDOSCOPY, DILATION * * The named appointment provid er may or may not be the originator of this progress note, and it is not deemed complete until electronically signed by the appointment provider. Sign off status: Pending * Provider:?Amilcar Elder MD Date:? 025 Generated for Gabriela sen/Michel/eTransmitting on:?05/28/2024 10:54 AM EDT
== END 2024-05-28 14:11 | disposition home or self-care (01) ==
LOC: HO.US 14:10
PROVIDERS: PCP Internal Medicine; Visit Provider Internal Medicine
DX: R60.0 Localized edema (principal)
CPT/HCPCS: 93971

== ENCOUNTER → 2024-05-28 14:52 | Outpatient (BNV) | payer OTHER, SELFPAY | PROVIDERS: PCP Internal Medicine; Visit Provider Radiology Diagnostic Radiology | DX: R22.42 Localized swelling, mass and lump, left lower limb (principal) | CPT/HCPCS: 93971 ==

== ENCOUNTER 2024-06-19 11:11 | Outpatient (RCR) | payer OTHER, SELFPAY ==
--- NOTE | 2024-05-25 14:44 | MHC.PT.EP ---
[facility] [place] Office [place] [facility] [place] Office [address] Samuel Meng 140 [facility] [phone] F: [phone] F: [phone] F: [phone] F: [phone] Physical Therapy Plan of Care Date of Evaluation: 05/25/24 Date of Surgery: n/a Diagnosis: gait instability, unsteady balance Assessment: Pt is a 64 yo male who is presenting with generalized weakness, fair balance, and decreased gait stability. Patient had manager of case management present at today's evaluation. Patient lives independently in a 2 story apartment. Patient attends a day program 5x a week, which he walks to daily. Patient reports he has frequent falls and present with weakness, fair balance, impaired gait pattern, and decreased postural awareness. Patient had recent fall and upon assessment his L knee is swollen with some pain and clicking, with notable tenderness at fibular head; I recommended patient to speak to provider for potential workup to rule out acute injury. Patient is a good candidate for physical therapy to decrease fall risk, improve gait pattern, and optimize functional mobility. Patient would benefit from skilled PT 2x a week for 4 weeks; that may include lateral shift correction, postural training, LE strength/stretching, and gait/balance training. Frequency and Duration: The patient will be seen 2x a week / 4 weeks Short Term Goals: Pt will have increased hip flexion strength bilaterally to at least 4/5 Pt will have increased standing balance on airex with EC for > 30 seconds Pt will have increased ankle strength bilaterally to at least 4/5 Pt will demonstrate proper sequencing during gait with SPC Pt will be I with HEP Chcf Goals: Pt will have improved knee strength to facilitate improved sequencing and stability while descending stairs Pt will have improved body mechanics and balance to perform ADLs such as getting in and out of the car Pt will have statistically significant improved function demonstrated by an increased score of the LEFI by at least 9 points Pt will be able to perform 30 sec sit <> stand at least 14 times to demonstrate a decrease risk of falls Treatment Plan: Modalities to reduce pain, spasms and effusion. Manual therapy to restore motion and function. Therapeutic exercise to improve strength and flexibility. Neuromuscular re-education for posture and balance. Therapeutic activities to return to functional activities of daily living. Electronically signed by: Rose Juarez, PT, DPT Please sign and return to therapist. Thank you for your referral.
--- NOTE | 2024-09-02 14:29 | MHC.PT.DC ---
[facility] [place] Office [place] [facility] [place] [facility] [address] Samuel Meng [address] [phone] F: [phone] F: [phone] F: [phone] F: [phone] Physical Therapy Discharge Report Diagnosis: gait instability, unsteady balance Date of Surgery: n/a Date of Evaluation: 05/25/24 Date of Discharge: 09/02/24 Treatments to Date: 8 Cancellations to Date: No Shows to Date: Discharge Status: Discharge Summary: Pt was seen for skilled PT from 05/25/24-06/19/24. His last attended appointment was on 06/19/24. He made fair progress with PT due to foot pain and also difficulty staying on task throughout sessions. He is D/C from PT at this time Electronically signed by: Rose Juarez, PT, DPT Please sign and return to therapist. Thank you for your referral.
== END 2024-09-02 14:29 | disposition home or self-care (01) ==
LOC: HO.PT 11:11
PROVIDERS: PCP Internal Medicine; Visit Provider Internal Medicine
DX: R26.89 Other abnormalities of gait and mobility (principal)
CPT/HCPCS: 97110; 97112; 97162; 97530

== ENCOUNTER 2024-11-14 17:34 | Inpatient (IN) | payer OTHER, SELFPAY ==
--- OUTSIDE RECORDS SUMMARY | 2023-07-31 06:50 | XMS_ITS ---
Author Organization [facility] Address [address] [place] [address] Care Team Providers Care Double Bottom Driver Name Role Phone Angelo Higginbotham MD Primary Care Provider Amilcar Cheema Unavailable [phone] REASON FOR VISIT hx colon ca,screening,hx polyps Problems Problem Type SNOMED Code ICD Code Onset Dates Problem Status W/U Status Risk Notes Problem Information temporarily unavailable Personal history of colon cancer (Z85.038) Active confirmed Problem Information temporarily unavailable Intestinal bypass and anastomosis status (Z98.0) Active confirmed Problem Information temporarily unavailable Diverticulosis of large intestine without perforation or abscess without bleeding (K57.30) Active confirmed Encounters Encounter Location Date Provider Diagnosis [facility] [place] [address], [place] [phone] 07/31/2023 Amilcar Elder Encounter for scre ening [...] * OSCAR BEGUMDOB:1960 ([age] yo M)Acc No.[id number]:07/31/2023 COLON WITH MAC Patient: OSCAR HIGGINS Provider: Ruchi Elder MD :1960 A ge:63 Y S ex:Male Date:07/31/2023 Address:[address] [place], [place] [id number] Pcp:Angelo Higginbotham MD Subjective: * Chief Complaints: [...] MD Date: 0 07/31/2023 Generated for Gabriela sen/Michel/Jaditting on: 0 11/14/2024 07:08 PM EDT
--- OUTSIDE RECORDS SUMMARY | 2024-05-01 08:00 | XMS_ITS ---
Author Organization [facility] Address [address] [place] [address] Care Team Providers Care Visual Merchandising Specialist Name Role Phone Neftaly NIXON, Angelo Primary Care Provider Amilcar Cheema Unavailable [phone] REASON FOR VISIT esophgeal dysphgia,abn barium swallow Encounters Encounter Location Date Provider Diagnosis [facility] Outpatient [address], [place] [phone] 05/01/2024 Amilcar Elder Esophageal dysphag ia R13.19 ; Hiatal hernia K44.9 and Abn findings-GI tract R93.3 Assessments Encounter Date Diagnosis (ICD Code) Assessment Notes Treatment Notes Treatment Clinical Notes Section Notes 05/01/2024 Esophageal dysphagia (ICD-10 - R13.19) 05/01/2024 Hiatal hernia (ICD-10 - K44.9) 05/01/2024 Abn findings-GI tract (ICD-10 - R93.3) Plan Of Treatment No Information Progress Notes * OSCAR BEGUMDOB:1960 ([age] yo M)Acc No.[id number]:05/01/2024 EGD/MAC Patient: OSCAR HIGGINS Provider: Ruchi Elder MD :1960 A ge:64 Y S ex:Male Date:05/01/2024 Address:[address] [place], [place] [id number] Pcp:Angelo Higginbotham MD Subjective: * Chief Complaints: * 1 . Esophgeal dysphgia,abn barium swallow. * Medical History: Objective: * Vitals: Assessment: * Assessment: 1. E sophageal dysphagia - R13.19 (Primary) 2 . H iatal hernia - K44.9 3 . A bn findings-GI tract - R93.3 Plan: * Treatment: * Procedure Codes: 4 3249 ESOPH ENDOSCOPY, DILATION * * The named appointment provid er may or may not be the originator of this progress note, and it is not deemed complete until electronically signed by the appointment provider. Sign off status: Pending * Provider: Ruchi Elder MD Date: 0 05/01/2024 Generated for Gabriela sen/Michel/Jaditting on: 0 11/14/2024 07:08 PM EDT
--- OUTSIDE RECORDS SUMMARY | 2024-06-04 11:02 | XMS_ITS ---
Author Organization Angelo Higginbotham MD Address [address] [place] [phone] Care Team Providers Care Kiln Cleaner Name Role Phone Neftaly Angelo Primary Care Provider [phone] REASON FOR VISIT left leg Encounters Encounter Location Date Provider Diagnosis Angelo Higginbotham MD [address] [place] [phone] 06/04/2024 Angelo Higginbotham Leg pain, left M79.605 Assessments Encounter Date Diagnosis (ICD Code) Assessment Notes Treatment Notes Treatment Clinical Notes Section Notes 06/04/2024 Leg pain, left (ICD-10 - M79.605) Plan Of Treatment Pending Test Test Name Order Date XR LOWER LEG LT 06/04/2024 Next Appt Details Provider Name:Angelo abel, 02/22/2025 07:00:00 AM, [address] [facility], Suite [facility], [place], [place], [phone], Provider Name:Angelo antonyr, 03/01/2025 01:00:00 PM, [address], [address], [place], [place], [phone], Progress Notes * Yomi BEGUM WDOB:1960 (64 yo M)Acc No.[id number]:06/04/2024 Patient: Yomi HIGGINS :1960 A ge:64 Y S ex:Male Address:[address] [place] [phone] Subjective: * Chief Complaints: * L eft leg * Medical History: * Surgical History: * Hospitalization/Major Diagno stic Procedure: * Medications: Objective: * Vitals: * Physical Examination: Assessment: * Assessment: 1. L eg pain, left - M79.605 Plan: * Treatment: * Procedure Codes: * true * Date: Generated for Gabriela sen/Michel/Jaditting on: 0 11/14/2024 07:08 PM EDT
--- OUTSIDE RECORDS SUMMARY | 2024-06-30 06:29 | XMS_ITS ---
Author Organization Angelo Higginbotham MD Address [address] [facility] [address] [place] [phone] Care Team Providers Care Continuous Loft Operator Name Role Phone EvelinAngelo [place] Primary Care Provider [phone] REASON FOR VISIT claim denied Encounters Encounter Location Date Provider Diagnosis Angelo Higginbotham MD [address] [place] [address] [place] [phone] 06/30/2024 Angelo Higginbotham Plan Of Treatment Next Appt Details Provider Name:Angelo Gomez ier, 02/22/2025 07:00:00 AM, [address] [place] [address], [address], [phone], Provider Name:Angelo abel, 03/01/2025 01:00:00 PM, [address] [place] [address], [address], [phone], Progress Notes * Yomi BEGUM WDOB:1960 (64 yo M)Acc No.[id number]:06/30/2024 Patient: Yomi HIGGINS :1960 A ge:64 Y S ex:Male Address:[address] [place] [phone] * true * Date: Generated for Gabriela sen/Michel/Kyliesmitting on: 0 11/14/2024 07:07 PM EDT
--- OUTSIDE RECORDS SUMMARY | 2024-08-24 10:00 | XMS_ITS ---
Author Organization Angelo Higginbotham MD Address [address] [facility] [address] [place] [phone] Care Team Providers Care Immersion Metal Cleaner Name Role Phone Neftaly Angelo Primary Care Provider Allergies Allergen (clinical drug ingredient) Drug/Non Drug Allergy documented on EMR Reaction Allergy Type Onset Date Status Information temporarily unavailable Haldol seizure Drug Allergy Active REASON FOR VISIT 6 month Encounters Encounter Location Date Provider Diagnosis Angelo Higginbotham MD 10 [facility] [address] [place] [phone] 08/24/2024 Angelo Higginbotham Plan Of Treatment Next Appt Details Provider Name:Angelo abel, 02/22/2025 07:00:00 AM, [address] [place] [address], [address], [phone], Provider Name:Angelo abel, 03/01/2025 01:00:00 PM, [address] [place] [address], [address], [phone], Progress Notes * Yomi BEGUM WDOB:1960 (64 yo M)Acc No.[id number]:08/24/2024 Progress Notes Patient: Yomi HIGGINS Provider: Chris Higginbotham MD :1960 A ge:64 Y S ex:Male Date:08/24/2024 Address:[address] [place], [place] [phone] Subjective: * Chief Complaints: * 1 . 6 month. * HPI: S ymptom(s): patient is a 64 yo male here for 6 month followup visit. * ROS: G eneral/Constitutional: Denies C hills. D enies F atigue. D enies F ever. D enies H eadache. E NT: Denies S ore throat. R espiratory: Denies C ough. D enies S hortness of breath at rest. D enies S hortness of breath with exertion. G astrointestinal: Denies D iarrhea. D enies N ausea. * Medical History: S chizophrenia, Pre diabetes, colonoscopy 02/11/2012; colonoscopy 02/23/13 - f/u 1 year; colonoscopy done 11/01/2014 w/Dr. Elder - repeat 2 yrs; Colonoscopy done by Dr. Elder 10/12/16 - repeat 2 years; colonoscopy booked for 04/22/19 w/Dr. Elder; 04/22/[address] Elder - repeat 2-3 yrs.11/21/22 LTD Colonoscopy repeat this year or next due to poor prep, Colonoscopy 2023 adenoma repeat in 3 years. * Allergies: H aldol: seizure. Objective: * Vitals: Assessment: Plan: * Treatment: * * The named appointment provid er may or may not be the originator of this progress note, and it is not deemed complete until electronically signed by the appointment provider. Sign off status: Pending * Provider: Chris Higginbotham MD Date: 0 08/24/2024 Generated for Rosei ng/Fajoseg/eTransmitting on: 0 11/14/2024 07:07 PM EDT History and Physical Notes * HPI (History of Present Illness) Category Sub-Category Detail Notes Category Not es Symptom(s) patient is a 64 yo male here for 6 month followup visit
--- OUTSIDE RECORDS SUMMARY | 2024-09-17 06:00 | XMS_ITS ---
Author Organization Angelo Higginbotham MD Address [address] [place] [phone] Care Team Providers Care Supervisor Research Kennel Name Role Phone NeftalyMilyn Primary Care Provider Allergies Allergen (clinical drug ingredient) Drug/Non Drug Allergy documented on EMR Reaction Allergy Type Onset Date Status Information temporarily unavailable Haldol seizure Drug Allergy Active REASON FOR VISIT 6 mo c/o left leg edema, Accompanied by embedded case manager Medications Medication SIG (Take, Route, [...] BY MOUTH ONCE DAILY for 90 Active [place] Carbonate 150 MG 3 capsule Orally BID [...] 20 mg TAKE 1 CAPSULE BY MO UT ONCE DAILY 30 MINUTES BEFORE BREAKFAST for [...] Date Provider Diagnosis Angelo Higginbotham MD [address] [facility] [address] [place], [place] [phone] 09/17/2024 Angelo Higginbotham Dependent edema R60.9 Assessments [...] regiment Next Appt Details Provider Name:Angelo abel, 02/22/2025 07:00:00 AM, [address] [facility] [address], [place], [place], [phone], Provider Name:Angelo Gomez ier, 03/01/2025 01:00:00 PM, [address], [address], [place], [place], [phone], Progress Notes * Yomi BEGUM WDOB:1960 (64 yo M)Acc No.[id number]:09/17/2024 Progress Notes Patient: Yomi HIGGINS Provider: Chris Higginbotham MD :1960 A ge:64 Y S ex:Male Date:09/17/2024 Address:[address] [place], [place] [phone] Subjective: * Chief Complaints: * 6 mo c/o left leg edemaAccompanied by embedded case manager * HPI: S ymptom(s): patient [...] List reviewed and reconciled with the patientNot-Taking/PRN [place] Carbonate 150 MG Capsule 3 capsule Orally [...] true * Provider: Chris Higginbotham MD Date: 09/17/2024 Generated for Gabriela sen/Michel/Kyliesmitting on: 11/14/2024 07:08 PM EDT History and Physical Notes * [...]
--- OUTSIDE RECORDS SUMMARY | 2024-09-17 06:15 | XMS_ITS ---
Author Organization Angelo Higginbotham MD Address [address] [facility] [address] [place] [phone] Care Team Providers Care Designer Architect Name Role Phone Angelo Higginbotham Primary Care Provider [phone] REASON FOR VISIT out of network with his ins Encounters Encounter Location Date Provider Diagnosis Angelo Higginbotham MD [address] [place] [address] [address] [place] [phone] 09/17/2024 Angelo Higginbotham Plan Of Treatment Next Appt Details Provider Name:Angelo Gomez ier, 02/22/2025 07:00:00 AM, [address] [place] [address], [address], [phone], Provider Name:Angelo Gomez iemichelle, 03/01/2025 01:00:00 PM, [address] [place] [address], [address], [phone], Progress Notes * Yomi BEGUM WDOB:1960 (64 yo M)Acc No.[id number]:09/17/2024 Patient: Yomi HIGGINS :1960 A ge:64 Y S ex:Male Address:[address] [place] [phone] * * Date:
--- NOTE | ~2024-11-14 | CT_ITS ---
CLINICAL HISTORY: fall, head trauma CT head without contrast Comparison: None provided. Findings: No intracranial mass, midline shift, hydrocephalus, or acute hemorrhage. There is generalized cerebral and cerebellar volume loss. Empty sella present. Minimal opacification of the left posterior ethmoid air cells. Minimal mucosal thickening present within the anterior ethmoid air cells, left frontal sinus, and right maxillary sinus. The bilateral mastoid air cells appear clear. No acute skull fracture. Impression: 1. No acute intracranial abnormality. No acute intracranial hemorrhage. This document has been electronically signed by: Kodi Espinosa MD on 11/15/2024 03:20:37
--- NOTE | ~2024-11-14 | CT_ITS ---
CLINICAL HISTORY: fall, head trauma CT cervical spine without contrast Comparison: None provided. Findings: The visualized portions of the bilateral lung apices appear clear. No cervical spondylolisthesis. Extensive degenerative endplate changes are present at the cervical spine inferiorly. Multilevel bilateral degenerative facet arthropathy also present at the cervical spine. No acute fractures or dislocations. Impression: 1. No acute fracture or dislocation injury identified at the cervical spine. This document has been electronically signed by: Kodi Espinosa MD on 11/15/2024 03:19:51
[2024-11-14 17:58] VITALS: BP 131/82; BP 144/80; PULSE 108; PULSE 94; RESP 18; TEMP 37.2; O2SAT 98; BMI 28.2
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
[2024-11-14 18:31] LABS: MANUAL DIFF FLAG NO
[2024-11-14 18:32] LABS: Hematocrit 35.5 % (42.0-52.0); Hemoglobin 11.9 g/dl (14.0-18.0); Imm Gran Abs Auto 0.04 X10*3/uL (0.00-0.03); Imm Gran Pct Auto 0.7 % (0.0-0.4); Lymphocytes Absolute Auto 1.8 X10*3/uL (1.2-4.9); Mean Corpuscular HGB Conc 33.5 g/dl (31.0-36.0); Mean Corpuscular Hemoglobin 30.4 pg (27.0-33.0); Mean Corpuscular Volume 90.8 fL (80.0-98.0); NRBC Abs Auto 0.000 X10*3/uL (0.0-0.012); NRBC Pct Auto 0.0 /100WBC (0.0-0.2); Platelet Count 149 X10*3/uL (160-400); Red Blood Count 3.91 X10*6/uL (4.60-5.80); White Blood Count 6.1 X10*3/uL (4.8-10.8)
[2024-11-14 18:33] LABS: Appearance Urine Clear; Glucose Urine UA Negative (Negative); PH 8.0 (5.0-9.0); Specific Gravity - Urine 1.015 (1.005-1.025); UMIC TRIGGER UA YES
[2024-11-14 18:41] LABS: Cannabinoid Screen Urine Not Detected (Not Detect)
[2024-11-14 18:47] LABS: Alanine Aminotransferase 37 U/L (0-40); Albumin Level 4.2 g/dL (3.5-5.0); Alkaline Phosphatase 56 U/L (39-117); Anion Gap 15 (12-20); Aspartate Amino Transferase 34 U/L (5-37); Blood Urea Nitrogen 15 mg/dL (9-16); Calcium 9.4 mg/dL (8.4-10.2); Carbon Dioxide 29 mmol/L (22-29); Chloride 105 mmol/L (96-108); Creatinine Clr Calc Pharmacy 62.8; Estimated Glomerular Filt Rate 59; Potassium 4.3 mmol/L (3.3-5.1); Sodium 145 mmol/L (135-145); Total Protein 6.8 g/dL (6.5-8.0)
--- OUTSIDE RECORDS SUMMARY | 2024-11-14 19:07 | XMS_ITS ---
Author Organization [facility] Address [address] [place] [address] Care Team Providers Care Water Jet Loom Fixer Name Role Phone EvelinAngelo lucas Primary Care Provider [phone] Active Problems * This document contains information received from the source organization and may not represent a complete record from that organization. Problem Noted Date Diagnosed Date Peripheral neuropathy 07/03/2018 Paraneoplastic neuropathy, non-anti-Hu 8 Assessment & Plan (02/26/2018 2:23 PM EST): Discharge paperwork, hospital course, and neurology notes were obtained from [facility]. The patient presented with confusion, delirium and metabolic encephalopathy. An initial workup was normal and included CBC, BMP, TSH, B12, folate. Further investigation included MRI/MRA of the head which did not show focal findings or vasculitis. The patient was concurrently being treated for renal cell carcinoma and had cryoablation conducted by Dr. Chriss Pham. It was successful and there was no evidence of metastasis. However, renal cell carcinoma can cause a host of paraneoplastic syndromes, so a lumbar puncture was conducted to evaluate for a paraneoplastic syndrome affecting the CLINICAL STAFF RN. 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 Treatment of 5 days of IVIG was recommended and completed. According to the documentation, which was informed by consultation with neurology at [place], if the condition does improve, it could take months. Additionally, EEG was conducted by neurologist Dr. Colbert and was unremarkable. Patient's mental status slowly improving during the hospitalization. - neuro following, appreciate recs - no indication for further IVIG at this time, especially given history of PE - called outpatient urologist/oncologist Dr. Chriss Pham's office on 02/26, f/u appt made HTN (hypertension) 01/31/2018 Assessment & Plan (02/14/2018 2:02 PM EST): Patient with a history of hypertension on home metoprolol 50 mg twice daily. It is unknown if he has another underlying pathology such as tachycardia that warrant choosing metoprolol as his blood pressure medication.We decreased metoprolol to 25 mg twice daily as patient's blood pressures have been on the softer side this admission. Plan: - Continue metoprolol 25mg QD -Continue monitoring daily vitals. Assessment & Plan (01/31/2018 8:59 AM EST): 01/31/2018 HTN on Home Lopressor decreased to 90s Hematoma of lower extremity, left, subsequent en counter 01/24/2018 Schizoaffective Disorder - S ubchronic (No Residual Symptoms) 07/15/2012 Assessment & Plan (02/27/2018 7:02 PM EST): Patient with a history of schizoaffective disorder on home depakote 250mg BID, lithium 300mg BID, risperdal 1mg Q4H PRN, zyprexa 10mg QHS, and lorazepam 1mg BID PRN. Acute delium mcould 2/2 infection, sepsis, unlikely paraneoplastic syndrome as previously treated at [facility]. Psychiatry was consulted on the patient due to continued agitation and he was originally started on zyprexa 5mg QAM and 10mg QHS. We later added Haldol TID prn for agitation, which was not successful. Therefore, psychiatry saw the patient again on 02/03 and recommended discontinuing his PRN haldol and seroquel and replacing them with Zyprexa Zydis 5mg BID PRN for agitation in addition to his Ativan 0.5mg BID PRN for anxiety. At admission the patient's depakote level was initially found to be low and depakote was adjusted to 500mg BID. However, repeat depakote levels from 02/02 continued to be low at 36. Therefore, Depakote was increased to 500mg QAM and 1,000mg QHS on 02/03. Psychiatry reevaluated patient on 02/05. We spoke to them about his previous clozapine which seems to have fallen off his medication reconciliation at some point after he left [facility] last month. Since that time the patient has been having changes in the psych medications. After speaking to the his assisted nurse, the nurse stated to me that the patient had previously been well controlled on the make sure of the clozapine and lithium. We wanted to consider restarting the clozapine as it was a medication that we know helped the patient improve in the past. They request a CBC with dif to assess the patient's ANC, which was 3.6. Mental status significantly improved since the introduction of clozapine. However patient continues to have some visual hallucinations and confusion in the p.m. Plan: - mental status significantly improved, calm and cooperative, follows command, slightly more hallucinated, and agitated in the pm - Psych consulted, appreciate recs on Rx adjustments - cont - B12/folate/TSH WNL, Head CT negative - cont regimen of clozapine 100 mg bid (started 02/07 with up-titration to current dose), [place] 450 mg Q12H, Depakote 500 mg BID, Olanzapine 10 mg QHS and trazodone 150mg qhs - cont ativan 0.5 mg Q12H PRN, trazodone 25 mg PRN and olanzapine 5 mg PRN - f/u clozapine level 02/22; pending at time of note - f/u CBC on /, clozapine level on Saturday - paraneoplastic syndrome management per section - d/c 1:1, monitor - pending for placement Assessment & Plan (02/01/2018 1:21 PM EST): 01/31/2018 Schizoaffective disorder now on depakote, lithium, ativan, olanzapine, now Haldol 2 mg TID prn IV or IM -Psych consult appreciated. Will continue to adjust psych meds as needed as as such, -Patient needs wrist restrains for safety. -Drug levels drawn, B12/folate/TSH WNL, Head CT negative History of pulmonary embolism Current Treatment and Therapy Plans No current plan information found. Past Treatment and Therapy Plans No past plan information found. Lifetime Dose Tracking * Chemical Lifetime Dose Automatic Entry Manual Entr y Radiation - mGy 104 mGy 0 mGy 104 mGy Resolved Problems Problem Noted Date Diagnosed Date Resolved Date Constipation 02/19/2018 02/28/2018 Assessment & Plan (02/23/2018 1:08 PM EST): RESOLVED. - Colace senna Miralax standing - suppository daily prn Bacteremia 01/31/2018 02/28/2018 Assessment & Plan (2018 6:19 PM EST): RESOLVED As above, patient presented with left groin hematoma found to grow Proteus mirabilis and corynebacterium. Patient had a recent ICU admission where he had a SFA line placed. He is now presenting with blood culture positive for gram-positive bacilli found to be Coryebacterium. This is likely corynebacterium associated with a line infection as patient had been hitting and rubbing/hitting his line wound at his [facility] prior to admission. We did attempt a TTE at the time, which we were unable to be complete due to patient agitation. Psychiatry was consulted to help us adjust the patient's medication regimen and patient's agitation and mental status has improved. However, we did not further pursue TTE as it would be low yield given the patient we had source control and ID felt patient was unlikely to have endocarditis. We discontinued vancomycin on 02/16 as per ID recommendations. Plan: - ID consulted. Recs appreciated. - Discontinued vancomycin as per ID recommendations as patient has source control and has received over two weeks of antibiotics. Infection of hematoma of wound 01/27/2018 02/28/2018 Assessment & Plan (2018 6:19 PM EST): RESOLVED Patient presented to the emergency room from rehab for the evaluation and management of left groin hematoma status post recent repair of left SFA pseudoaneurysm. The patient was recently admitted to [facility] from November to January 22 for altered mental status thought to represent metabolic encephalopathy and during that admission he had an ICU stay where a left SFA line was placed. He was taken to the OR on 01/16 for the evacuation of the hematoma and placement of a viabahn stent. [facility]. Since arriving there he was continued to be altered and frequently hit or irritate the left femoral incision site. Prior to admission nursing staff noticed that the groin was red and swollen, therefore he was brought to [facility]. On the day of admission, 01/27/18, he was taken to OR for left femoral exploration, hematoma evacuation and NPWT placement. He tolerated the procedure well and was sent to the floor postoperatively to recover. His wound culture at that time grew Proteus mirabilis and Corynebacterium species. Patient was also noted to have gram positive bacilli on his blood culture, which later speciated to Corynebacterium species. He was started on ceftriaxone 1g Q24H for a total of two weeks (completed 02/10). Patient had a wound vac in place that was removed on 02/13. Vascular recommended daily dressing changes with aquacel (cut to fit the wound) and a mepilex dressing over it, which was done by nursing. They will see the patient at their vascular clinic for follow up on 02/26 at 1PM. Plan: - s/p wound vac. Now getting daily dressing changes by nursing as per vascular recommendations. - ID consulted, abx dc'd per recs on 02/14 Assessment & Plan (02/23/2018 11:19 AM EST): RESOLVED L groin hematoma, s/p evacuation with concurrent Bacteremias. Proteus and Corynebacter on intra-op hematoma cultures. Gramp positive bacilli in blood. -Continue ceftriaxone -Infectious Disease consult recommended 2 weeks of Rx for Proteus in wound and 6 weeks for Corynebacterium bacteremia given presence of Wound Culture from OR. -s/p wound VAC that will be chganged MWF Pulmonary embolus 01/27/2018 02/28/2018 Overview (01/27/2018): Added automatically from request for surgery [id number] Assessment & Plan (02/12/2018 2:24 PM EST): Patient started he was found to have PE on 11/23 and started on Lovenox. He is now status post IVC filter placement and no longer needs chronic anticoagulation. PLAN: -Continue lovenox 40mg subcutaneous daily for DVT prophylaxis. Assessment & Plan (01/31/2018 8:58 AM EST): 01/31/2018 H/o PE: IVCF in place, no more therapeutic LVX for anticoagulation. He is on phrophylactic lovenox. Delirium 02/28/2018
--- OUTSIDE RECORDS SUMMARY | 2024-11-14 19:07 | XMS_ITS | Patient Health Record ---
Author Organization Angelo Higginbotham MD Address [address] [place], [place] [id number] Care Team Providers Care Direct Marketing Manager Name Role Phone NeftalyMilyn Primary Care Provider Allergies Allergen (clinical drug ingredient) Drug/Non Drug Allergy documented on EMR Reaction Allergy Type Onset Date Status Information temporarily unavailable Haldol seizure Drug Allergy Active Results Component Value Reference Range Notes Complete Blood Count Auto Di ff Reviewed date:02/17/2024 01:19:42 PM Interpretation: Performing Lab:[facility], [address] [place] [id number] Notes/Report: White Blood Count 5.7 4.8-10.8 X10*3/uL Red Blood Count 4.09 4.60-5.80 X10*6/uL Hemoglobin 12.6 14.0-18.0 g/dl Hematocrit 39.4 42.0-52.0 % Mean Corpuscular Volume 96.3 80.0-98.0 fL Mean Corpuscular Hemoglobin 30.8 27.0-33.0 pg Mean Corpuscular HGB Conc 32.0 31.0-36.0 g/dl Red Cell Distribution Width 14.7 11.0-16.0 % Platelet Count 143 160-400 X10*3/uL Mean Platelet Volume 9.9 9.4-12.4 fL Neutrophils Percent Auto 47.4 45-73 % Imm Gran Pct Auto 0.5 0.0-0.4 % Lymphocytes Percent Auto 40.8 20-40 % Monocytes Percent Auto 9.0 2-11 % Eosinophils Percent Auto 1.8 0-4 % Basophils Percent Auto 0.5 0-2 % NRBC Pct Auto 0.0 0.0-0.2 /100WBC Neutrophils Absolute Auto 2.7 2.0-8.3 x10*3/uL Imm Gran Abs Auto 0.03 0.00-0.03 X10*3/uL Lymphocytes Absolute Auto 2.3 1.2-4.9 X10*3/uL Monocytes Absolute Auto 0.5 0.1-1.2 X10*3/uL Eosinophils Absolute Auto 0.1 0.0-0.4 X10*3/uL Basophils Absolute Auto 0.0 0.0-0.2 X10*3/uL NRBC Abs Auto 0.000 0.0-0.012 X10*3/uL Comprehensive Kemp. Panel Fa st Reviewed date:02/17/2024 05:33:42 PM Interpretation: Performing Lab:[facility], [address] [place] [phone] Notes/Report: Sodium 144 135-145 mmol/L Potassium 4.0 3.3-5.1 mmol/L Chloride 109 96-108 mmol/L Carbon Dioxide 29 22-29 mmol/L Anion Gap 10 12-20 Blood Urea Nitrogen 10 9-16 mg/dL Creatinine 1.26 0.5-1.4 mg/dL Estimated Glomerular Filt Rate 58 Chronic Kidney Disease: Estimated GFR < 60 mL/min/1.73m2 Severe Kidney Disease: Estimated GFR < 15 mL/min/1.73m2 Glucose Fasting 101 60-99 mg/dL A fasting glucose from 100-125 mg/dl is considered impaired (pre-diabetes). Calcium 9.0 8.4-10.2 mg/dL Bilirubin Total 0.5 0.0-1.0 mg/dL Aspartate Amino Transferase 32 5-37 U/L Alanine Aminotransferase 24 0-40 U/L Total Protein 6.3 6.5-8.0 g/dL Albumin Level 3.7 3.5-5.0 g/dL Alkaline Phosphatase 39 39-117 U/L Lipid Panel Reviewed date:02/17/2024 05:31:16 PM Interpretation: Performing Lab:[address] [phone] Notes/Report: Triglycerides 172 <150 mg/dL Desirable Triglyceride: less than 150 mg/dL Borderline High Triglyceride 150-199 mg/dL High Triglyceride: 200-499 mg/dL Very High Triglyceride: greater than or equal to 5OO mg/dL Cholesterol 151 <200 mg/dL Desirable Cholesterol: less than 200 mg/dL Borderline High Cholesterol: 200-239 mg/dL High Cholesterol: greater than 239 mg/dL LDL Cholesterol Calculated 79 <100 mg/dL Desirable LDL: less than 100 mg/dL Near Optimal/Above Optimal LDL: 110-129 mg/dL Borderline High LDL: 130-159 mg/dL High LDL: 160-189 mg/dL Very High LDL: greater than or equal to 190 mg/dL HDL Cholesterol 38 >40 mg/dL Desirable HDL: greater than 40 mg/dL Note: This HDL assay may give artificially low results in patients with liver disease. PSA,Total (Free>4and<10) Reviewed date:02/17/2024 05:23:27 PM Interpretation: Performing Lab:[address] [phone] Notes/Report: PSA,Total (Free>4and<10) 1.09 0.00-4.00 ng/mL A Free PSA was not performed: The percentage of Free PSA can be used to enhance the differentiation of prostate cancer from benign prostatic disease in subjects whose PSA levels are between 4.0 and 10.0 ng/mL. For subjects whose PSA levels are below 4.0 or above 10.0 ng/mL, the risk of prostate cancer is determined on the basis of the PSA alone. Therefore the % Free PSA is recommended only for those subjects whose PSA levels are between 4.0 and 10.0 ng/mL. PSA methodology: GRUZOBZORnity i Chemiluminescent Microparticle Immunoassay (CMIA) Vitamin D 25-OH Total Reviewed date:02/17/2024 05:22:26 PM Interpretation: Performing Lab:[address] [phone] Notes/Report: Vitamin D 25-OH Total 44.4 >30 ng/mL Health Based Reference Values* < 20 ng/mL Deficient 20-30 ng/mL Insufficient > 30 ng/mL Sufficient *Sofia ART. N Engl J Med. 2007;357:266-280 Care must be taken in interpreting Vitamin D results from different laboratories and methodologies. Published data demonstrated that results from patients undergoing hemodialysis may show a negative bias when tested with various automated 25-OH vitamin D assays when compared to LC-MS/MS. When testing samples from patients whose predominant form of Vitamin D is Vitamin D2, such as patients receiving Vitamin D2 supplementation, results that are subtherapeutic should be confirmed with another method such as LC-MS/MS. Hemoglobin A1c Reviewed date:02/17/2024 05:23:17 PM Interpretation: Performing Lab:[facility], [address] [place] [phone] Notes/Report: Hemoglobin A1c % 6.3 <6.0 % Hemoglobin A1C Reference Range Adults: 4.8 - 6.0 % Non diabetic: < 6.0 % Goal: < 7.0 % Additional Action Suggested: > 8.0 % Note: Hemoglobin A1c results are invalid for patients with abnormal amounts of HbF. Blood transfusions may impact the HbA1c concentration in the patient sample. Estimated Average Glucose 134 eAG = Estimated average glucose which is %A1C expressed as average glucose, using the formula of the U9T-Hfuexbz Average Glucose study (ADAG), Diabetes Care, Vol.31,#8, Oct. 2007 UA ClnCatch+Micro w/rflx Cul t Reviewed date:02/17/2024 05:34:12 PM Interpretation: Performing Lab:[facility], [address] [place] [phone] Notes/Report: Urine, Clean Catch Color Urine Yellow Appearance Urine Clear PH 7.5 5.0-9.0 Glucose Urine UA Negative Negative mg/dL Urine Blood Negative Negative Specific [place] - Urine 1.020 1.005-1.025 Urine Protein Negative Neg-Trace mg/dL Urine Ketones Trace Negative mg/dL Nitrite Urine Negative Negative Leukocyte Esterase Urine Negative Negative RBC Urine 0-2 0-2 /HPF WBC Urine 0-5 0-5 /HPF Squamous Epithelial Cell Urine 0-2 0-2 /HPF Bacteria Urine None Seen None Seen Hyaline Casts Urine 0-2 0-2 /LPF FL barium swallow modified Reviewed date:01/25/2024 05:19:27 PM Interpretation: Performing Lab: Notes/Report: [address] [address] Fluoroscopy Report Signed Patient: Yomi Forman MR#: [id number] : 1960 Acct:[id number] Age/Sex: 63 / M ADM Date: 01/15/24 Loc: ROBERT Attending Dr: Angelo Higginbotham MD Ordering Physician: Angelo Higginbotham MD Date of Service: 01/15/24 Procedure(s): FL Modified Barium Swallow Accession Number(s): [id number] cc: Angelo Higginbotham MD EXAMINATION: Modified Barium Swallow CLINICAL INFORMATION: Dysphagia COMPARISON: None TECHNIQUE: Modified barium swallow was performed under lateral fluoroscopy with patient in standing position. Barium mixed with solids and liquids of different consistencies was administered by the speech pathologist. Examination was recorded in the fluoroscopy suite. FINDINGS: No laryngeal penetration or aspiration was observed during this examination. FLUOROSCOPY TIME: 1 minute 49 seconds Number of Spot Images: N/A DOSE AREA PRODUCT: 961.3 uGy-m2 (microgray-meter squared) FL/FL Modified Barium Swallow IMPRESSION: 1. No laryngeal penetration or aspiration was observed during this examination Refer to the speech therapy report for further clarification This procedure was performed by Eligio Crawford PA-C, and supervised by Dr. Walters Electronically signed by: Pablito Walters MD 01/24/2024 04:[address] [facility] Dictated By: Eligio Crawford Signed By: <Electronically signed by Eligio Crawford in OV> 01/24/24 1641 <Electronically signed by Pablito Walters MD in OV> 01/24/24 1643 DD/ 1034 TD/TT: 01/15/24 1044 Service Administrator: [address] [address] Fluoroscopy Report Signed Patient: Yomi Forman MR#: [id number] : 1960 Acct:[id number] Age/Sex: 63 / M ADM Date: 01/15/24 Loc: ROBERT Attending Dr: Angelo Higginbotham MD Ordering Physician: Angelo Higginbotham MD Date of Service: 01/15/24 Procedure(s): FL Modified Barium Swallow Accession Number(s): [id number] cc: Angelo Higginbotham MD EXAMINATION: Modified Barium Swallow CLINICAL INFORMATION: Dysphagia COMPARISON: None TECHNIQUE: Modified barium swal low was performed under lateral fluoroscopy with patient in standing position. Barium mixed with solids and liquids of different consistenc ies was administered by the speech pathologist. Examination was tessie rded in the fluoroscopy suite. FINDINGS: No laryngeal penetra tion or aspiration was observed during this examination. FLUOROSCOPY TIME: 1 minute 49 seconds Number of Spot Image s: N/A DOSE AREA PRODUCT: 961.3 uGy-m2 (microgray-meter squared) F L/FL Modified Barium Swallow IMPRESSION: 1. No laryngeal penetration or aspiration was observed during this examination Refer to the speech therapy report for further clarification This procedure was performed by Eligio Crawford PA-C, and supervised by Dr. Walters Electronically tc d by: Pablito Walters MD 01/24/2024 04:[address] [facility] Dictated By: Brandon Crawford Signed By: <Electronically signed by Eligio Crawford in OV> 01/24/24 1641 <Electronically sign ed by Pablito Walters MD in OV> 01/24/24 1643 DD/ 1034 TD/TT: 01/15/24 1044 Service Administrator: FL barium swallow with air Reviewed date:02/07/2024 11:28:31 AM Interpretation:appt being worked on Performing Lab: Notes/Report: [address] [address] Fluoroscopy Report Signed Patient: Yomi Forman MR#: [id number] : 1960 Acct:[id number] Age/Sex: 63 / M ADM Date: 02/05/24 Loc: HO.XRAY Attending Dr: Angelo Higginbotham MD Ordering Physician: Angelo Higginbotham MD Date of Service: 02/05/24 Procedure(s): FL barium swallow with air Accession Number(s): [id number] cc: Angelo Higginbotham MD EXAMINATION: XR FLUOROSCOPY UPPER GI WITH AIR CLINICAL INFORMATION: Choking. Dysphagia. COMPARISON: None TECHNIQUE: Fluoroscopic air contrast upper GI examination was performed utilizing standard techniques with thin and thick barium and effervescent granules. Numerous spot images were obtained. FINDINGS: Lateral cine images of the oropharynx and hypopharynx demonstrate normal swallow mechanism with normal epiglottic inversion and soft palate elevation. No tracheal penetration, glottic or subglottic aspiration identified. No nasopharyngeal reflux present. Hypopharyngeal structures appear normal without evidence of mass or diverticulum. There is mild cricopharyngeal achalasia present. Dual and single contrast images of the esophagus demonstrate a normal caliber, contour, and mucosal pattern. No evidence of mass or ulcerations. There is mild narrowing of the GE junction that may represent achalasia. There is to and fro motion of the barium column with nonpropulsive tertiary contractions noted throughout the esophagus. No evidence of hiatus hernia identified. No significant gastroesophageal reflux was seen during the course of the examination and on reflux views. Dual contrast and single contrast images of the stomach demonstrated a normal contour. The gastric rugal folds have a thickened appearance, suggestive of gastritis. No masses or ulcerations are seen. Contrast freely passed into the gastric antrum and duodenal bulb without delay. Single and air-contrast images of the duodenal bulb demonstrate no abnormality. The duodenal sweep has a normal caliber and appearance. The imaged proximal jejunum has a normal fold pattern and caliber. An IVC filter is incidentally noted. FLUOROSCOPY TIME: 5 minutes 22 seconds Number of Spot Images: 12 Number of Cine: 16 DOSE AREA PRODUCT: 4954 uGy-m2 (microgray-meter squared) FL/FL barium swallow with air IMPRESSION: 1. Mild cricopharyngeal achalasia. 2. Mild narrowing of the GE junction that likely represents achalasia. A benign stricture cannot be ruled out. Recommend correlation with EGD. 3. Significant esophageal dysmotility. 4. Mildly thickened appearance of the gastric rugal folds, suggestive of gastritis. This procedure was performed by Eligio Crawford PA-C, and supervised by Dr. Walters Electronically signed by: Pablito Walters MD 02/05/2024 03:[address] [facility] Dictated By: Eligio Crawford Signed By: <Electronically signed by Eligio Crawford in OV> 02/05/24 1513 <Electronically signed by Pablito Walters MD in OV> 02/05/24 1516 DD/ 1000 TD/TT: 02/05/24 1030 Service Administrator: [place] [address] Fluoroscopy Report Signed Patient: Yomi Forman MR#: [id number] : 1960 Acct:[id number] Age/Sex: 63 / M ADM Date: 02/05/24 Loc: HO.LUISAAY Attending Dr: Angelo Higginbotham MD Ordering Physician: Angelo Higginbotham MD Date of Service: 02/05/24 Procedure(s): FL bar ium swallow with air Accession Number(s): [id number] cc: Angelo Higginbotham MD EXAMINATION: XR FLUOROSCOPY UPPER GI WITH AIR CLINICAL INFORMATION: Choking. Dysphagia. COMPARISON: None TECHNIQUE: Fluoroscopic air contrast upper GI examination was performed utilizing standard techniques with thin and thick barium and effervescent granules. Numerous s pot images were obtained. FINDINGS: Lateral cine images of the oropharynx and hypopharynx demonstrate normal swallow mecha nism with normal epiglottic inversion and soft palate elevation. No tracheal penetration, glottic or subglottic aspiration identifie d. No nasopharyngeal reflux present. Hypopharyngeal structures appear no rmal without evidence of mass or diverticulum. There is mild cricopharyngeal achalasia present. Dual and single cont rast images of the esophagus demonstrate a normal caliber, contour, an d mucosal pattern. No evidence of mass or ulcerations. There i s mild narrowing of the GE junction that may represent achalasia. There is to and fro motion of the barium column with nonpropulsive tertiary contractions noted throughout the esophagus. No evidence of hiatu s hernia identified. No significant gastroesophageal ref lux was seen during the course of the examination and on reflux views. Dual contrast and si ngle contrast images of the stomach demonstrated a normal contour. The gastric rugal folds have a thickened appearance, suggestive of gastri tis. No masses or ulcerations are seen. Contrast freely passed into t he gastric antrum and duodenal bulb without delay. Single and air-contr ast images of the duodenal bulb demonstrate no abnormality. The duodenal sweep has a normal caliber and appearance. The imaged proximal jejunum has a normal fold pattern and caliber. An IVC filter is incidentally noted. FLUOROSCOPY TIME: 5 minutes 22 seconds Number of Spot Image s: 12 Number of Cine: 16 DOSE AREA PRODUCT: 4954 uGy-m2 (microgray-meter squared) F L/FL barium swallow with air IMPRESSION: 1. Mild cricopharyng eal achalasia. 2. Mild narrowing of the GE junction that likely represents achalasia. A benign stricture cannot be ruled out. Recommend correlation with EGD. 3. Significant esophageal dysmotility. 4. Mildly thickened appearance of the gastric rugal folds, suggestive of gastritis. This procedure was performed by Eligio Crawford PA-C, and supervised by Dr. Walters Electronically tc d by: Pablito Walters MD 02/05/2024 03:[address] [facility] Dictated By: Brandon Crawford Signed By: <Electronically signed by Eligio Crawford in OV> 02/05/24 1513 <Electronically sign ed by Pablito Walters MD in OV> 02/05/24 1516 DD/ 1000 TD/TT: 02/05/24 1030 Service Administrator: US venous duplex LE LT Reviewed date:05/28/2024 04:16:24 PM Interpretation: Performing Lab: Notes/Report: [address] [address] Ultrasound Report Signed Patient: Yomi Forman MR#: [id number] : 1960 Acct:[id number] Age/Sex: 64 / M ADM Date: 05/28/24 Loc: HO.US Attending Dr: Angelo Higginbotham MD Ordering Physician: Angelo Higginbotham MD Date of Service: 05/28/24 Procedure(s): US venous duplex LE LT Accession Number(s): [id number] cc: Angelo Higginbotham MD EXAMINATION: US LOWER EXTREMITY VEINS LIMITED FOLLOW UP LEFT HISTORY: LEG SWELLING COMPARISON: Comparison is made with the prior examination dated 02/24/2019. TECHNIQUE: Duplex and color Doppler sonographic examination of the deep venous system of the left lower extremity was performed. FINDINGS: The common femoral, superficial femoral, and popliteal veins are patent demonstrating normal compressibility, spontaneous flow, and augmentation. There is a normal color and spectral Doppler waveform appearance of the visualized deep venous system above the knee. The posterior tibial and peroneal veins are patent. US/US venous duplex LE LT IMPRESSION: No evidence of acute DVT in the left lower extremity. Electronically signed by: Amilcar Esquivel MD 05/28/2024 03:30 PM EDT RP Dictated By: Amilcar Esquivel MD Signed By: <Electronically signed by Amilcar Esquivel MD in OV> 05/28/24 1530 DD/ 1452 TD/TT: 05/28/24 1503 Service Administrator: [place] [address] Ultrasound Report Signed Patient: Yomi Forman MR#: [id number] : 1960 Acct:[id number] Age/Sex: 64 / M ADM Date: 05/28/24 Loc: . Attending Dr: Angleo Higginbotham MD Ordering Physician: Angelo Higginbotham MD Date of Service: 05/28/24 Procedure(s): US alfonzo ous duplex LE LT Accession Number(s): [id number] cc: Angelo Higginbotham MD EXAMINATION: US LOWE R EXTREMITY VEINS LIMITED FOLLOW UP LEFT HISTORY: LEG SWELLING COMPARISON: Comparis on is made with the prior examination dated 02/24/2019. TECHNIQUE: Duplex an d color Doppler sonographic examination of the deep venous system o f the left lower extremity was performed. FINDINGS: The common femoral, superficial femoral, and popliteal veins are patent demonstrating normal compressibility, spontaneous flow, and augmentation. There is a normal color and spectral Doppler waveform appearance of the visualized deep venous system above the knee. The posterior tibial and peroneal veins are patent. ____ U S/US venous duplex LE LT IMPRESSION: No evidence of acute DVT in the left lower extremity. Electronically tc d by: Amilcar Esquivel MD 05/28/2024 03:30 PM EDT RP Dictated By: Amilcar Esquivel MD Signed By: <Electronically signed by Amilcar Esquivel MD in OV> 05/28/24 1530 DD/ 1452 TD/TT: 05/28/24 1503 Service Administrator: Reason For Referral Reason eval and treat nee ds follow up appt Diagnosis 1 Reflux esophagitis ( K21.00) Diagnosis 2 Choking episode (R09 .89) Referral Organization Angelo Higginbotham MD Referring Provider First Name Angelo Referring Provider Last Name Neftaly Referring Provider Speciality Internal M edicine Referred Provider Amilcar Jorge Referred Provider Specialty Gastroentero logy General Notes Tabitha Sweeney 11:26:28 AM EST > info faxed , Tabitha Sweeney 02/28/2024 09:58:51 AM EST > referral info being reviewed by Dr. Jorge no appt booked yet , Tabitha Sweeney 03/05/2024 12:57:05 PM EST > appt is being worked on, Tabitha Sweeney 03/13/2024 11:12:39 AM EST > was told patient is on a cancel list, call back nexrt week Referral Priority Routine Referral Appointment Date 03/20/2024 Reason please eval and nayana t for physical therapy Diagnosis 1 Balance problem (R26 .89) Referral Organization Angelo Higginbotham MD Referring Provider First Name Angelo Referring Provider Last Name Neftaly Referring Provider Speciality Internal edicine Referred Provider [facility] Referred Provider Specialty Physical The rapist General Notes Tabitha Sweeney 0 05/08/2024 10:50:39 AM >patient will be booking his on appt Referral Priority Routine Referral Appointment Date 05/08/2024 Medications Medication SIG (Take, Route, Frequency, Duration) Notes Start Date End Date Status Docusate Sodium 100 mg TAKE 1 CAPSULE BY MOUTH two (2) times a day NEEDED for 90 Active D3-1000 25 MCG (1000 UT) TAKE 1 CAPSULE BY MOUTH ONCE DAILY for 90 Active [place] Carbonate 150 MG 3 capsule Orally BID Not-Taking traZODone HCl 100 MG 1 tablet at bedtime as needed Orally Once a day Not-Taking Ibuprofen 800 MG 1 tablet with food o r milk as needed Orally Three times a day for 10 days 12/04/2018 Not-Taking Vistaril 25 MG 1 capsule as needed Orally every 8 hrs Not-Taking Senna 8.6 MG 1 tablets at bedtime as needed Orally Once a day for 30 days 10/24/2015 Not-Taking Aspirin 325 MG 1 tablet Orally Once a day Not-Taking ZyPREXA 10 MG 3 tablet Orally Once a day Active Depakote ER 250 MG 250mg QAM Orally Onc e a day Active Depakote ER 500 MG 2 tabs Orally hs Active Benztropine Mesylate 1 MG 1 tablet at be dtime Orally Once a day prn Active Thorazine 25mg tid Active PriLOSEC OTC 20 MG 1 tablet 30 minutes before morning meal Orally Once a day Active ZyPREXA 10 MG 3 tablet Orally Once a day Active Vitamin D3 25 MCG (1000 UT) 1 tablet Orally Once a day Active Metoprolol Tartrate 25 mg TAKE 1 TABLET BY MOUTH two (2) times a day for 30 Active Furosemide 20 mg TAKE 1 TABLET BY TOMÁS TH ONCE DAILY for 30 Active Finasteride 5 mg TAKE 1 TABLET BY TOMÁS TH ONCE DAILY for 90 Active Amantadine HCl 100 MG 1 capsule Orally T wice a day for 30 day(s) Not-Taking Cogentin Active Omeprazole 20 mg TAKE 1 CAPSULE BY MO UTH ONCE DAILY 30 MINUTES BEFORE BREAKFAST for 90 Active Immunizations Vaccine Route Administration Date Status Comme nts Flu Vaccine IM Intramuscular 02/16/2011 Administered Flu Vaccine Unknown 01/25/2012 Administered Flu Vaccine Unknown 01/08/2013 Administered Fluarix Quadrivalent IM Intramuscular 11/17/2013 Administered PPSV23 (Pnemovax) IM Intramuscular 06/01/2014 Administered Fluarix Quadrivalent IM Intramuscular 12/28/2014 Administered Fluarix Quadrivalent IM Intramuscular 01/02/2016 Administered Prevnar 13 IM Intramuscular 01/20/2016 Administered Fluarix Quadrivalent Unknown 12/24/2016 Administered [facility] Unknown 08/22/2018 Administered Fluarix Quadrivalent Unknown 01/15/[address] [facility] Tetanus Unknown 08/22/2018 Administered PPSV23 (Pnemovax) IM Intramuscular 11/02/2019 Administered Fluarix Quadrivalent Unknown 12/24/2019 Administered Covid Vaccine Unknown 06/24/2020 Administered J&J Fluarix Quadrivalent IM Intramuscular 11/29/2020 Administered Covid Vaccine Unknown 06/24/2020 Administered Yusef toriboi aleksandr Yusef SARS-COV-2 Pfizer Unknown 01/11/2021 Administered Fluarix Quadrivalent IM Intramuscular 12/28/2021 Administered SARS-COV-2 Moderna Unknown 01/12/2022 Administered Fluarix Quadrivalent IM Intramuscular 12/04/2022 Administered Fluarix Quadrivalent - 150 IM Intramuscular 02/24/2024 Administered zInfluenza Unknown 11/17/2013 Pending Flu Vaccine Unknown 11/17/2013 Pending Social History Tobacco Use: Social History Observation Description Date Details (start date - stop date) Never Smoker NA - NA Tobacco Use/Smoking Question Answer Notes Patient is a nonsmoker Additional Findings: Tobacco Non-User Cu rrent non-smoker, currently using no form of tobacco Alcohol Screen Question Answer Notes Did you have a drink containing alcohol in the p ast year? 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) Active confirmed Problem Information temporarily unavailable Malignant neoplasm of colon, unspecified (C18.9) Active confirmed Problem Information temporarily unavailable 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) Active confirmed Problem Information temporarily unavailable Hypercalcemia (E83.52) Active confirmed Problem 93395623 Slow transit constipation (K59.01) Active confirmed Problem Information temporarily unavailable Hydrocele, unspecified (N43.3) Active confirmed Problem Information temporarily unavailable Other specified abnormal findings of blood chemistry (R79.89) Active confirmed Problem 784710185 History of pulmo nary embolism (Z86.711) Active confirmed Problem 385557213 History of colon cancer (Z85.038) Active confirmed Problem 933395007 Renal mass (N28.89) Active confirmed Problem 123301754 Fatty liver (K76.0) Active confirmed Problem 33540285 Esophageal stric ture (K22.2) Active confirmed Problem 547438382 Pure hypercholesterolemia (E78.00) Active confirmed Problem 06818246 Schizophrenia, unspecified type (F20.9) Active confirmed Problem 204667723 Falling (R29.6) Active confirmed Problem 445957944 Falls frequently (R29.6) Active confirmed Problem 166958080968560 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) Active confirmed Problem 728811208 Femoral artery stenosis, 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) Active confirmed Problem 573367990 Malignant neopla sm of kidney, unspecified laterality (C64.9) Active confirmed Problem 228132695 Balance problem (R26.89) Active confirmed Vital Signs Blood pressure diastolic 64 mm Hg 09/17/2024 Height 68 in 09/17/2024 Blood pressure systolic 104 mm Hg 09/17/2024 Weight 209 lbs 09/17/2024 BMI 31.77 kg/m2 09/17/2024 Encounters Encounter Location Date Provider Diagnosis Angelo Higginbotham MD [address] [place] [address] Drive [address] [place] [address] [id number] 02/17/2024 Angelo Higginbotham Lymphocytosis D72.82 0 ; Pure hypercholesterolemia E78.00 ; Prostatism N40.0 ; Vitamin D deficiency E55.9 and Impaired fasting glucose R73.01 Angelo Higginbotham MD [address] [place] [address] Drive [address] [place] [address] [id number] 01/09/2024 Angelo Higginbotham Poor posture R29.3 a nd Choking episode R09.89 Angelo Higginbotham MD [address] [place] [address] [address] [place] [address] [id number] 02/24/2024 Angelo Higginbotham Esophageal stricture K22.2 ; Annual physical exam Z00.00 ; Pure hypercholesterolemia E78.00 ; Encounter for immunization Z23 ; Vitamin D deficiency E55.9 ; Reflux esophagitis K21.00 and Prostatism N40.0 Angelo Higginbotham MD [address] [place] [address] [id number] 05/08/2024 Angelo Higginbotham Balance problem R26. 89 ; Elbow injury, unspecified laterality, initial encounter S59.909A and Accidental fall, initial encounter W19.XXXA Angelo Higginbotham MD [address] [place] [address] [id number] 05/28/2024 Angelo Higginbotham Leg swelling M79.89 Angelo Higginbotham MD [address] [place] [address] [id number] 09/17/2024 Angelo Higginbotham Dependent edema R60. 9 Angelo Higginbotham MD [address] [place] [address] [id number] 09/17/2024 Angelo Higginbotham MD [address] [place] [address] [id number] 01/31/2024 Angelo Higginbotham Reflux esophagitis K 21.00 ; Choking episode R09.89 and Malignant neoplasm of kidney, unspecified laterality C64.9 Angelo Higginbotham MD [address] [place] [address] [id number] 05/28/2024 Angelo Higginbotham MD [address] [place] [address] [id number] 06/04/2024 Angelo Higginbotham Leg pain, left M79.6 05 Angelo Higginbotham MD [address] [place] [address] [id number] 06/30/2024 Angelo Higginbotham Assessments Encounter Date Diagnosis (ICD Code) Assessment Notes Treatment Notes Treatment Clinical Notes Section Notes 02/17/2024 Lymphocytosis (ICD-1 0 - D72.820) 02/17/2024 Pure hypercholesterolemia (ICD-10 - E78.00) 01/09/2024 Poor posture (ICD-10 - R29.3) orders for physical therapy given to patient are going to send to physical therapy 01/09/2024 Choking episode (ICD -10 - R09.89) will swallowing evaluation, pending diagnostic testing w 02/24/2024 Esophageal stricture (ICD-10 - K22.2) referral to dr jorge for upper endoscopy- referral already entered and being worked on 02/24/2024 Annual physical exam (ICD-10 - Z00.00) labs reviewed and discussed with patient 05/08/2024 Balance problem (ICD -10 - R26.89) referral to physical therapy at [facility] 05/08/2024 Elbow injury, unspecified laterality, initial encounter (ICD-10 - S59.909A) 05/28/2024 Leg swelling (ICD-10 - M79.89) order given to patient , pending Stat diagnostic testing, patient/caregive r verbalized understanding of medication and directions for use. 09/17/2024 Dependent edema (ICD -10 - R60.9) get more active and continue current regiment 06/04/2024 Leg pain, left (ICD- 10 - M79.605) 02/17/2024 Prostatism (ICD-10 - N40.0) 02/24/2024 Pure hypercholesterolemia (ICD-10 - E78.00) stable, will continue current regiment 05/08/2024 Accidental fall, initial encounter (ICD-10 - W19.XXXA) 01/31/2024 Reflux esophagitis (ICD-10 - K21.00) 02/17/2024 Vitamin D deficiency (ICD-10 - E55.9) 02/24/2024 Encounter for immunization (ICD-10 - Z23) flu vaccine administered 01/31/2024 Choking episode (ICD -10 - R09.89) 02/17/2024 Impaired fasting glucose (ICD-10 - R73.01) 02/24/2024 Vitamin D deficiency (ICD-10 - E55.9) stable, will continue current regiment 01/31/2024 Malignant neoplasm o f kidney, unspecified laterality (ICD-10 - C64.9) 02/24/2024 Reflux esophagitis (ICD-10 - K21.00) doing well, will continue current regiment 02/24/2024 Prostatism (ICD-10 - N40.0) stable, will continue to monitor Plan Of Treatment Pending Test Test Name Order Date URINE CULTURE 06/05/2018 CT ABD & PELVIS WWO CONTRAST 10/04/2020 XR BARIUM SWALLOW-ESOPHAGUS 01/31/2024 XR LOWER LEG LT 06/04/2024 US LEG LT VENOUS DOPPLER 05/28/2024 Next Appt Details Provider Name:Angelo Gomez ier, 02/22/2025 07:00:00 AM, [address], [address], [place], [place], [id number], Provider Name:Angelo Gomez ier, 03/01/2025 01:00:00 PM, [address], [address], [place], [place], [id number], Insurance Providers Payer Name Payer Address Payer Phone Subscriber Number Group Number Insured Name Patient Relationship to Insured Coverage Start Date Coverage End Date [facility]ly [facility] [address] [address] [place] [address] [id number] DuygianniYomi Self - patient is the insured 8 Medical (General) History Medical History History ICD Code schizophrenia Pre diabetes colonoscopy 02/11/2012; colo noscopy 02/23/13 - f/u 1 year; colonoscopy done 11/01/2014 w/Dr. Jorge - repeat 2 yrs; Colonoscopy done by Dr. Jorge 10/12/16 - repeat 2 years; colonoscopy booked for 04/22/19 w/Dr. Jorge; 04/22/[address] Jorge - repeat 2-3 yrs.11/21/22 LTD Colonoscopy repeat this year or next due to poor prep colonoscopy 2023 adenoma repeat in 3 yea rs
--- OUTSIDE RECORDS SUMMARY | 2024-11-14 19:08 | XMS_ITS | Patient Health Record ---
Author Organization [facility] Address [address] [place] [address] Care Team Providers Care Customer Services Supervisor Name Role Phone Angelo Higginbotham MD Primary Care Provider Amilcar Cheema Unavailable [phone] Allergies Allergen (clinical drug ingredient) Drug/Non Drug Allergy documented on EMR Reaction Allergy Type Onset Date Status Information temporarily unavailable Haldol Unknown Drug Allergy Active Reason For Referral No Information Medications Medication [...] Problem Status W/U Status Risk Notes Problem 748511374 Encounter for screening for malignant neoplasm of colon (Z12.11) Active confirmed Problem Information temporarily unavailable Diverticulosis of large intestine without perforation or abscess without bleeding (K57.30) Active confirmed Problem Information temporarily unavailable Intestinal bypass and anastomosis status (Z98.0) Active confirmed Problem 654640874435045 Preprocedural examination (Z01.818) Active confirmed Problem Information temporarily unavailable History of colon polyps (Z86.010) Active confirmed Problem 101754615 Aspirin long-ter m use (Z79.82) Active confirmed Problem 819409097 History of colon cancer (Z85.038) Active confirmed Problem 89485232 Oropharyngeal dysphagia (R13.12) Active confirmed Problem Information temporarily unavailable Personal history of colon cancer (Z85.038) Active confirmed Problem 748396853 Hx of adenomatou s colonic polyps (Z86.010) Active confirmed Problem Information temporarily unavailable Abnormal barium swallow (R93.3) Active confirmed Problem Information temporarily unavailable Esophageal dysphagia (R13.19) Active confirmed Vital Signs Temperature 96.8 degrees Fahrenheit 03/20/2024 Blood pressure diastolic 00 mm Hg 03/20/2024 Height 67.5 in 03/20/2024 Blood pressure systolic 000 mm Hg 03/20/2024 Weight 206 lbs 03/20/2024 BMI 31.78 kg/m2 03/20/2024 Encounters Encounter Location Date Provider Diagnosis [facility] [address] [place], [place] [id number] 05/01/2024 Amilcar Elder Esophageal dysphagia R13.19 ; Hiatal hernia K44.9 and Abn findings-GI tract R93.3 [facility] [address] [place] [address] 03/20/2024 Amilcar Eldre Esophageal dysphagia R13.19 and Abnormal barium swallow R93.3 [facility] [address] [place] [phone] 02/27/2024 Amilcar Elder Assessments Encounter Date Diagnosis (ICD Code) Assessment Notes Treatment Notes Treatment Clinical Notes Section Notes 05/01/2024 Hiatal hernia (ICD-10 - K44.9) 05/01/2024 [...] to keep you advised of his progress. 05/01/2024 Abn findings-GI tract (ICD-10 - R93.3) 03/20/2024 Other Repeat colonoscopy in 2026 Overall, [...] Insured Coverage Start Date Coverage End Date [facility] [address] Attn Claims [place] [id number] [employer] Self - patient is the insured Medical (General) History Medical History History ICD Code Schizophrenia Colon cancer-stage IIA-- gerardo gnosed in 01/2012--underwent a left colectomy with Dr. Jose in 02/2012-saw Dr. Carter in and she did not feel he needed any adjuvant Rx Denies [place],DM,CVA,Lung disease,renal dise ase GERD-EGD with dilation in [...] surgery as above Left inguinal hernia surgery-Dr. Medhat dougherty--07/2018 Gtube in 2018 during [facility] n
--- OUTSIDE RECORDS SUMMARY | 2024-11-14 19:08 | XMS_ITS | Clinical Summary ---
Author Organization [facility] Address [address] [place] [address] Care Team Providers Care Learning Strategist Name Role Phone Angelo Higginbotham Primary Care Provider Allergies No known active allergies Medications * This document contains information received from the source organization and may not represent a complete record from that organization. metoprolol tartrate (LOPRESSOR) 25 mg tablet Take 1 tablet (25 mg total) by mouth 2 times a day. 02/29/20 Active OLANZapine (ZyPREXA) 10 mg tablet Take 1 tablet (10 mg total) by mouth nightly. 02/29/20 18 Active Additional Information Patient taking differently: 30 mgoral Nightly, Reported on 08/06/2022 OLANZapine (ZyPREXA Zydis) 5 mg disintegrating tablet Dissolve 1 tablet (5 mg total) in the mouth every 12 hours as needed (severe agitation). 02/29/20 Active docusate sodium (COLACE) 100 mg capsule Take 1 capsule (100 mg total) by mouth 2 times a day. 02/29/20 Active LORazepam (ATIVAN) 0.5 mg tablet Take 1 tablet (0.5 mg total) by mouth 2 times a day as needed for anxiety. 30 tablet 2 02/29/20 18 Active divalproex ER (Depakote ER) 500 mg tablet 1,000 mg nightly. Active finasteride (PROSCAR) 5 mg tablet Take 1 tablet by mouth once a day. Active omeprazole (PriLOSEC) 20 mg capsule TAKE ONE CAPSULE BY MOUTH ONCE A DAY 30 MINUTES BEFORE MORNING MEAL Active chlorproMAZINE (THORAZINE) 25 mg tablet 25mg Active Vitamin D3 25 mcg (1,000 unit) capsule Take 1 tablet by mouth. Active benztropine (COGENTIN) 1 mg tablet Take 1 mg by mouth daily as needed. 07/25/19 23 Active chlorproMAZINE (THORAZINE) 25 mg tablet SMARTSI Tablet(s) By Mouth Twice Daily PRN 07/25/[address] (DEPAKOTE) 250 mg EC tablet Take 250 mg by mouth in the morning. Active Active Problems Problem Noted Date Diagnosed Date Peripheral neuropathy 07/03/2018 Paraneoplastic neuropathy, non-anti-Hu 8 Assessment & Plan (02/26/2018 2:23 PM EST): Discharge paperwork, hospital course, and neurology notes were obtained from [facility]. The patient presented with confusion, delirium and [...] evaluate for a paraneoplastic syndrome affecting the PRIZE COORDINATOR. 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 Treatment of 5 days of IVIG was recommended and completed. According to the documentation, which was informed by consultation with neurology at [place], if the condition does improve, it could [...] unlikely paraneoplastic syndrome as previously treated at [facility]. Psychiatry was consulted on the patient [...] reconciliation at some point after he left [facility] last month. Since that time the patient has been having changes in the psych medications. After speaking to the his care home nurse, the nurse stated to me that [...] (started 02/07 with up-titration to current dose), [place] 450 mg Q12H, Depakote 500 mg BID, Olanzapine 10 mg QHS and trazodone 150mg qhs - cont ativan 0.5 mg Q12H PRN, trazodone 25 mg PRN and olanzapine 5 mg PRN - f/u clozapine level 02/22; pending at time of note - f/u CBC on , clozapine level on Saturday - paraneoplastic syndrome [...] Head CT negative History of pulmonary embolism Resolved Problems Problem Noted Date Diagnosed Date [...] pseudoaneurysm. The patient was recently admitted to [facility] from November to January 22 for altered mental status thought to represent metabolic encephalopathy and during that admission he had an ICU stay where a left SFA line was placed. He was taken to the OR on 01/16 for the evacuation of the hematoma and placement of a viabahn stent. The patient was discharged to [facility] on 01/22. Since arriving there he was continued to be altered and frequently hit or irritate the left femoral incision site. Prior to admission nursing staff noticed that the groin was red and swollen, therefore he was brought to [facility]. On the day of admission, 01/27/18, he [...] (01/27/2018): Added automatically from request for surgery [id number] Assessment & Plan (02/12/2018 2:24 PM EST): [...] He is on phrophylactic lovenox. Delirium 02/28/2018 Family History Medical History Relation Name Comments Other Cousin Family history of Schizophrenia, schizoaffective Other Sister Family history of Schizophrenia, schizoaffective Relation Name Status Comments Cousin Sister Social History Tobacco Use Types Packs/Day Years Used Date Smoking Tobacco: Former Smokeless Tobacco: Never Comments:quit smoking 40 yea rs ago Alcohol Use Standard Drinks/Week Comments Not Asked 0 (1 standard drink = 0.6 oz pur e alcohol) Sex and Gender Information Value Date Recorded Sex Assigned at Not on file Legal Sex Male 12:02 AM EDT Gender Identity Not on file Sexual Orientation Not on file Last Filed Vital Signs Vital Sign Reading Time Taken Comments Blood Pressure 125/85 07/20/2021 11:09 AM EDT Pulse 77 07/20/2021 11:09 AM EDT Temperature 36.6 C (97.8 F) 07/20/2021 11:09 AM EDT Respiratory Rate 17 02/11/2019 11:28 AM EST Oxygen Saturation 98% 07/20/2021 11:09 AM EDT Inhaled Oxygen Concentration - - Weight 73.7 kg (162 lb 6.4 oz) 07/03/2018 11:02 AM EDT Height 169.3 cm (5' 6.65 ) 07/03/2018 11:02 AM E DT Body Mass Index 25.7 07/03/2018 11:02 AM EDT Plan of Treatment Health Maintenance Due Date Last Done Comments Cologuard 1960 HIV Screening 1960 Hepatitis C Screening [address] Lung Cancer Screening (Baseline) 2011 Zoster Vaccines (1 of 2) 2011 Basic Metabolic Panel 02/26/2019 02/26/2018 , 02/24/2018, 02/21/2018, Additional history exists FOBT / Fit Test 12/05/2022 12/05/2021, 11/16, 02/14/2017, Additional history exists COVID-19 Vaccine ( season) 2023 01/12/2022, 01/12/2022, 01/11/2021, Additional history exists Alcohol/Substance Use Screening 03/18/2024 Depression Screening and Follow-Up 03/18/2024 Social Drivers of Health Annual Screening 03/18/2024 Colon Cancer Screening 11/01/2024 Colonoscopy 11/01/2024 11/01/2014, 11/01/2014 Influenza Vaccine (#1) 2024 , 12/28/2021, 11/29/2020, Additional history exists DTaP,Tdap,and Td Vaccines (3 - Td or Tdap) 08/22/2028 08/22/2018, 08/22/2018 RSV Vaccine (60+ years old and patients) (1 - 1-dose 75+ series) 02/19/2036 Pneumococcal Vaccine: 50+ Years Completed 11/02/2019, 01/20/2016, 06/01/2014 Hepatitis B Vaccines Aged Out No long er eligible based on patient's age to complete this topic Medical Devices Implanted Type Area Field Gauger Device Identifier Shelf Expiration Date Model / Serial / Lot Filter Vena Cava Femoral With Navalign Delivery [id number] Celec - S0 - [id number] Implanted:Qty: 1 on 01/28/2018 by Melanie Bryan MD at [facility] IVC Filter Right: Vein [employer] [id number] 11/25/2020 [id number] / 0 / [id number] Procedures * Due to [place] [employer] law, this organization might not be sharing negative HIV tests. Procedure Name Priority Date/Time Associated Diagnosis Comments BASIC METABOLIC PANEL Timed 02/26/2018 7:05 AM EST from Last 3 Months or Most Recently Relevant to Health Maintenance Results * Due to [place] [employer] law, this organization might not be sharing negative HIV tests. * (ABNORMAL) Basic Metabolic Panel (02/26/2018 7:05 AM EST) NA 142 135 - 145 mmol/L 02/26/2018 8:17 AM EST [facility] K 4.4 3.5 - 5.3 mmol/L 02/26/2018 8:17 AM EST [facility] Cl 110 97 - 110 mmol/L 02/26/2018 8:17 AM EST [facility] CO2 29 24 - 32 mmol/L 02/26/2018 8:17 AM EST [facility] BUN 10 7 - 23 mg/dL 02/26/2018 8:17 AM EST [facility] Creatinine 0.57(L) 0.60 - 1.30 mg/dL 02/26/2018 8:17 AM EST [facility] Glucose 109(H) 70 - 99 mg/dL 02/26/2018 8:17 AM EST [facility] Calcium 9.2 8.7 - 10.7 mg/dL 02/26/2018 8:17 AM EST [facility] Anion Gap 3(L) 5 - 15 02/26/2018 8:17 AM EST [facility] eGFR Non- >90 >=90 mL/min/BSA 02/26/2018 8:17 AM EST [facility] Comment: Units = mL/min/1.73 m2 Glomerular Filtration Rate (GFR) is estimated based on the CKD-EPI Creatinine Equation (2009). For Americans multiply results by 1.159. Stage Description GFR 1 Normal >=90 mL/min/BSA 2 Mildly decreased GFR 60-89 mL/min/BSA 3 Moderately decreased GFR 30-59 mL/min/BSA 4 Severely decreased GFR 15-29 mL/min/BSA 5 Kidney Failure <15 mL/min/BSA Blood specimen (specimen) Implantable venous catheter submitted as specimen / Unknown Existing Catheter / Unknown 02/26/2018 7:05 AM EST 02/26/2018 7:23 AM EST us Brian Jorge MD LAB BLOOD ORDERABLES Final Resu lt [facility] [address] [place] [address], from Last 3 Months or Most Recently Relevant to Health Maintenance Insurance [facility] Advance Directives Documents on File Type Date Recorded Patient Ethylbenzene Converter Helper Expl anation Health Care Proxy 01/27/2018 10/13/2014 * Full Code (Latest Code Status on File) Date Activated Date Inactivated Comments 01/27/2018 5:09 PM 02/28/2018 6:58 PM * Full Code Date Activated Date Inactivated Comments 01/27/2018 2:07 PM 01/27/2018 5:09 PM Healthcare Agents on File Name Relationship Healthcare Agent Relationshi p Communication Malissa Forman Sister Healthcare Proxy - Primary Care Teams Learning Strategist Relationship Specialty Start Date End Date Angelo Higginbotham [address] [place] [address] [place] [address] PCP - General Internal Medicine 05/21/18
--- NOTE | 2024-11-14 19:19 | ED.GENADULT ---
HPI - General Adult General Chief complaint: Psychiatric Symptoms Stated complaint: Audio & visual Hallucinations Time Seen by Provider: 11/14/24 18:03 Source: patient Limitations: no limitations History of Present Illness ED Provider: Ping Landry PA-C HPI narrative: 64-year-old male with a history of schizoaffective disorder of bipolar type, chronic anemia, hypertension, prior renal cell carcinoma, BPH, presents with a hallucinations. Patient states he has been experiencing both auditory and visual hallucinations throughout the day, he describes ?people pointing guns it me?. Patient states that 6 months ago he ?met to people at the [facility], he has been giving them his money, and that one of them has a knife?. He indicates that these are the people who have been pointing guns at him. Patient also describes that ?the woman has a terrible skidder driver?. He then starts talking about a computer that he has, he then changes topic and starts talking about how ?her car needs an alignment?. Patient states he has been taking his medications as directed, there have been no recent medication changes. Related Data Home Medications ?Medication ?Instructions ?Recorded ?Confirmed metoprolol tartrate 25 mg tablet 25 mg PO BID 01/29/22 11/14/24 divalproex 250 mg tablet,delayed 250 mg PO DAILY 11/21/22 11/14/24 release docusate sodium 100 mg capsule 100 mg PO BID PRN Constipation 07/30/23 11/15/24 chlorpromazine 25 mg tablet 25 mg PO BEDTIME 11/15/24 11/15/24 chlorpromazine 25 mg tablet 25 mg PO DAILY PRN Agitation 11/15/24 11/15/24 furosemide 20 mg tablet 20 mg PO DAILY 11/15/24 11/15/24 Previous Rx's ?Medication ?Instructions ?Recorded benztropine 1 mg tablet 1 mg PO BID PRN extrapyramidal 06/01/20 effects/symptoms #60 tabs cholecalciferol (vitamin D3) 25 25 mcg PO DAILY #30 tabs 06/01/20 mcg (1,000 unit) tablet divalproex 500 mg tablet,extended 1,000 mg (2 x 500 mg) PO BEDTIME 06/01/20 release 24 hr (Depakote ER) #60 tabs finasteride 5 mg tablet 5 mg PO DAILY 90 days #30 tabs 06/01/20 olanzapine 10 mg tablet 30 mg (3 x 10 mg) PO BEDTIME #90 06/01/20 tabs omeprazole 20 mg capsule,delayed 20 mg PO DAILY@0630 #30 caps 06/01/20 release Allergies Allergy/AdvReac Type Severity Reaction Status Date / Time haloperidol (From HALDOL) Allergy Unknown UNKNOWN Verified 11/14/24 17:59 adhesive tape AdvReac Unknown Rash Verified 11/14/24 17:59 Helidac Allergy Unknown seizure Uncoded 11/14/24 17:59 and stiffness Review of Systems Review of Systems: Yes all other systems are reviewed and are negative Constitutional: Constitutional: Denies fatigue and Denies fever(s) Cardiovascular: Cardiovascular: Denies chest pain and Denies dyspnea Respiratory: Respiratory: Denies dyspnea Gastrointestinal: Gastrointestinal: Denies abdominal pain, Denies nausea and Denies vomiting Psychiatric: Psychiatric: Reports auditory hallucinations, Reports visual hallucinations, Denies homicidal ideation and Denies suicidal ideation Endocrine: Endocrine: Denies fatigue PMFSH Past Medical History Attestation statement: The following information was validated with the patient. Medical History Feeding by G-tube Bilateral cataracts Schizoaffective disorder, bipolar type Syncope Seizure Paraneoplastic syndrome Chronic headaches Colon cancer Hyperammonemia Esophageal stricture Encephalopathy Renal cell carcinoma Anemia Hernia Depression HTN (hypertension) Schizophrenia GERD (gastroesophageal reflux disease) Surgical History Hx of cataract extraction History of esophagogastroduodenoscopy (EGD) H/O colonoscopy History of left inguinal hernia repair H/O hemicolectomy Social History Social History Household Members: Other Housing: House Do you presently have visiting nurse or other home services: Yes (LAY Garcia) Unable to assess alcohol history related to: Unable to respond and Unknown Alcohol intake: never Comment: incoherent Patient Tobacco Use Status: Never used Tobacco Smoked in Last 30 Days: No Use of substances other than those prescribed or required for medical reasons: No Currently Displaying Signs/Symptoms of Drug Intoxication Withdrawal: No Have you been hit, kicked, punched, or otherwise hurt by someone within the past year? If so, by whom?: No Do you feel safe in your current relationship?: No Current Relationship Is there a partner from a previous relationship who is making you feel unsafe now?: No Are you made to feel afraid or neglected: No Advance Directives: No Advance Directives Information Provided: No Do you have thoughts of harming others: None Do you have a plan to hurt others: No Plan Recently lost weight without trying: No How much weight loss: Not applicable Eating poorly because of decreased appetite: No Nutrition screen score: 0 Nutrition Risks: No Nutritional Risk Poor oral hygiene: Yes (no teeth) service: No Sexual orientation: unable to discuss Physical Exam ED Vital Signs: Vital Signs - 24 hr 11/17/24 08:12 Temperature 98.0 F Pulse Rate 101 H Respiratory Rate 16 Blood Pressure 125/83 Pulse Oximetry 96 Oxygen Delivery Method Room Air BMI result Body Mass Index 28.2 Const Other: Alert well-appearing Orientation/consciousness: patient oriented x3 Resp Effort & Inspection: normal respiratory effort Cardio Other: Normal peripheral perfusion Skin Other: Warm dry no rash Neuro General: patient oriented x3, gait normal, no focal motor deficits and CN's II-XI intact bilaterally Psych Other: Tangential thought process, somewhat paranoid delusions, both auditory and visual hallucinations, the patient has also been observed to be responding to internal stimuli while I was obtaining history from him Course Reevaluation(s) Reevaluation #1: Time: 21:32 Date: 11/14/24 Provider: LILIAN Aguirre Patient in physician observation for psychiatric evaluation.? No acute events reported overnight. No current complaints. VS stable.? Patient is in bed search status/pending CARE team evaluation. Will continue to monitor. Speaking with Costa from the care team, the patient we will be made an inpatient bed search, he is currently a section 12 Time: 21:05 Reevaluation #2: Time: 14:02 Date: 11/17/24 Provider: Aminta Cain DO Physician observation ended at 202pm. Patient to be admitted as inpatient to psychiatry. Medications Administered Generic Name Dose Route Start Last Admin Trade Name Freq PRN Reason Stop Dose Admin Chlorpromazine HCl 25 mg 11/14/24 22:30 11/17/24 21:07 Chlorpromazine Hcl 25 Mg Tablet PO 25 mg TID DEVONTE Administration Divalproex Sodium 1,000 mg 11/14/24 22:30 11/17/24 21:07 Divalproex Sodium Er 500 Mg Tab.Er.24h PO 1,000 mg BEDTIME DEVONTE Administration Divalproex Sodium 250 mg 11/15/24 09:00 11/17/24 08:33 Divalproex Sodium 250 Mg Tablet.Dr PO 250 mg DAILY DEVONTE Administration Finasteride 5 mg 11/15/24 09:00 11/17/24 08:32 Finasteride 5 Mg Tablet PO 5 mg DAILY DEVONTE Administration Metoprolol Tartrate 25 mg 11/14/24 22:30 11/17/24 21:06 Metoprolol Tartrate 25 Mg Tablet PO 25 mg BID DEVONTE Administration Protocol Olanzapine 30 mg 11/17/24 21:00 11/17/24 21:07 Olanzapine 10 Mg Tablet PO 30 mg BEDTIME DEVONTE Administration Discontinued Medications Generic Name Dose Route Start Last Admin Trade Name Cindi PRN Reason Stop Dose Admin Ibuprofen 600 mg 11/15/24 21:32 11/15/24 21:45 Ibuprofen 600 Mg Tablet PO 11/15/24 21:33 600 mg ONCE ONE Administration Medical Decision Making Medical Decision Making MDM Narrative: 64-year-old male with a history of schizoaffective disorder of bipolar type, chronic anemia, hypertension, prior renal cell carcinoma, BPH, presents with a hallucinations. Patient states he has been experiencing both auditory and visual hallucinations throughout the day, he describes ?people pointing guns it me?. Patient states that 6 months ago he ?met to people at the [facility], he has been giving them his money, and that one of them has a knife?. He indicates that these are the people who have been pointing guns at him. Patient also describes that ?the woman has a terrible skidder driver?. He then starts talking about a computer that he has, he then changes topic and starts talking about how ?her car needs an alignment?. Patient states he has been taking his medications as directed, there have been no recent medication changes. Problem: Psychiatric illness History: Per patient I have considered the following differential diagnoses: SI, HI, decompensated psychiatric illness, drug/alcohol intoxication Plan: Screening labs including serum ethanol and drug screen are obtained, the patient we will be speaking with the care team. He appears quite decompensated. I have independently reviewed the following tests: Labs: No leukocytosis, not anemic, no electrolyte abnormality, U tox negative, ethanol less than 10 Differential Diagnosis Differential Diagnoses: The differential diagnosis associated with the presentation includes See [facility] Admission/Observation Consideration of admission/observation: Escalation of care including admission/observation considered Probable psychiatric inpatient admission Consult Healthcare Provider Management of the patient was discussed with: Behavioral Health Provider Lab Data [facility] Lab Attestation statement: I reviewed the patient's lab results. 11/14/24 18:23 11/14/24 18:23 Labs: Lab Results 11/14/24 Range/Units 18:23 WBC 6.1 (4.8-10.8) X10*3/uL RBC 3.91 L (4.60-5.80) X10*6/uL Hgb 11.9 L (14.0-18.0) g/dl Hct 35.5 L (42.0-52.0) % MCV 90.8 (80.0-98.0) fL MCH 30.4 (27.0-33.0) pg MCHC 33.5 (31.0-36.0) g/dl RDW 15.1 (11.0-16.0) % Plt Count 149 L (160-400) X10*3/uL MPV 9.2 L (9.4-12.4) fL Immature Gran % (Auto) 0.7 H (0.0-0.4) % Neut % (Auto) 54.9 (45-73) % Lymph % (Auto) 28.8 (20-40) % [place] % (Auto) 10.5 (2-11) % Eos % (Auto) 4.8 H (0-4) % Baso % (Auto) 0.3 (0-2) % Lymph # (Auto) 1.8 (1.2-4.9) X10*3/uL [place] # (Auto) 0.6 (0.1-1.2) X10*3/uL Eos # (Auto) 0.3 (0.0-0.4) X10*3/uL Baso # (Auto) 0.0 (0.0-0.2) X10*3/uL Abs Immat Gran (auto) 0.04 H (0.00-0.03) X10*3/uL Absolute Neuts (auto) 3.3 (2.0-8.3) x10*3/uL Absolute Nucleated RBC 0.000 (0.0-0.012) X10*3/uL Nucleated RBC % (auto) 0.0 (0.0-0.2) /100WBC Sodium 145 (135-145) mmol/L Potassium 4.3 (3.3-5.1) mmol/L Chloride 105 (96-108) mmol/L Carbon Dioxide 29 (22-29) mmol/L Anion Gap 15 (12-20) BUN 15 (9-16) mg/dL Creatinine 1.23 (0.5-1.4) mg/dL Estim Creat Clear Calc 62.8 Estimated GFR 59 Random Glucose 133 H (60-115) mg/dL Calcium 9.4 (8.4-10.2) mg/dL Total Bilirubin 0.3 (0.0-1.0) mg/dL AST 34 (5-37) U/L ALT 37 (0-40) U/L Alkaline Phosphatase 56 (39-117) U/L Total Protein 6.8 (6.5-8.0) g/dL Albumin 4.2 (3.5-5.0) g/dL Urine Color Yellow Urine Appearance Clear Urine pH 8.0 (5.0-9.0) Ur Specific [place] 1.015 (1.005-1.025) Urine Protein Negative (Neg-Trace) mg/dL Urine Glucose (UA) Negative (Negative) mg/dL Urine Ketones Negative (Negative) mg/dL Urine Blood Negative (Negative) Urine Nitrite Negative (Negative) Ur Leukocyte Esterase Small (1+) H (Negative) Urine RBC 0-2 (0-2) /HPF Urine WBC 0-5 (0-5) /HPF Ur Squamous Epith Cells 0-2 (0-2) /HPF Urine Bacteria None Seen (None Seen) Hyaline Casts 0-2 (0-2) /LPF Urine Opiates Screen Not Detected (Not Detect) Ur Buprenorphine Scrn Not Detected (Not Detect) ng/mL Ur Oxycodone Screen Not Detected (Not Detect) ng/mL Urine Methadone Screen Not Detected (Not Detect) ng/mL Urine Fentanyl Screen Not Detected (Not Detect) Ur Barbiturates Screen Not Detected (Not Detect) Valproic Acid 66.6 (50.0-100.0) mcg/mL Ur Phencyclidine Scrn Not Detected (Not Detect) Ur Amphetamines Screen Not Detected (Not Detect) U Benzodiazepines Scrn Not Detected (Not Detect) Urine Cocaine Screen Not Detected (Not Detect) U Marijuana (THC) Screen Not Detected (Not Detect) Ethyl Alcohol < 10 mg/dL Chronic Conditions Patient?s care impacted by: Other Psychiatric illness Discharge Plan Discharge Clinical Impression: Auditory hallucination, Hallucination, visual, Paranoid delusion Patient Disposition: Admitted As Inpatient Interventions: Admission Worksheet (ED) Last Done: 11/17/24 14:19 Discharge Date/Time: 11/17/24 14:36
[2024-11-14 22:37] VITALS: BP 132/84; PULSE 98
[2024-11-14 22:43] VITALS: BP 132/84; PULSE 98; RESP 18; TEMP 36.9; O2SAT 100
--- NOTE | 2024-11-15 02:10 | PC.NURSE ---
Pt was walking out of room heading towards restroom and lost footing, fell into chair from standing position, pt struck left side of face, staff responded immediately, no LOC, no blood thinners, MD aware and at bedside to eval, CT head and spine ordered, pt remains neurologically intact, denies headache, dizziness, or blurry vision
[2024-11-15 02:37] VITALS: BP 119/75; PULSE 75; RESP 16; TEMP 37.1; O2SAT 100
[2024-11-15 07:30] VITALS: BP 114/71; PULSE 76; RESP 16; TEMP 36.8; O2SAT 100
--- NOTE | 2024-11-15 07:33 | PC.NURSE ---
Addendum entered by Daisha Ball RN 11/15/24 07:38: Pt evaluated by CARE team and could benefit from [facility] at this time for mood stabilization, safety, medication evaluation and containment. Pt appears to be decompensated, he is experiencing auditory and visual hallucinations of people with guns being in his home and computer who are yelling and threatening him. Pt was tangential and disorganized and needs to be redirected throughout with minimal success as he is hyper-fixated his computer, an individual he met 6 months ago and his hallucinations. Due to Pt's presentation and level of decompensation he is not appropriate for a lower level of care. Pt is voluntary at this time but will be placed on a section 12 while a IPLOC bed search is completed. Addendum entered by Daisha Ball RN 11/15/24 07:34: Patient is a 64-year-old male with a history of schizoaffective disorder of bipolar type, chronic anemia, hypertension, prior renal cell carcinoma, BPH, presents with a hallucinations. Patient states he has been experiencing both auditory and visual hallucinations throughout the day. Patient alert and calm. Respirations even and non-labored. Patient noted to have a shuffling gait and is utilizing a walker to ambulate to the bathroom. No distress noted at this time. Patient is resting comfortably. Original Note: Medical History Feeding by G-tube Bilateral cataracts Schizoaffective disorder, bipolar type Syncope Seizure Paraneoplastic syndrome Chronic headaches Colon cancer Hyperammonemia Esophageal stricture Encephalopathy Renal cell carcinoma Anemia Hernia Depression HTN (hypertension) Schizophrenia GERD (gastroesophageal reflux disease)
[2024-11-15 14:38] VITALS: BP 118/79; PULSE 84; RESP 16; TEMP 36.3; O2SAT 98
--- NOTE | 2024-11-15 15:06 | PHA.MEDREC ---
Pharmacy Consult ? Medication Reconciliation Pharmacy has completed the medication reconciliation.Med rec complete, based on pharmacy claims only. Patient in altered state and not able to provide information, no family present.
--- NOTE | 2024-11-15 17:41 | MHC.EDTECH ---
Patient stated to this tech that he was having leg pain. This tech looked at patients legs at patients request. Informed RN of patients request for pain medicine, and that he was stating bilateral leg pain.
[2024-11-15 20:29] VITALS: BP 111/73; PULSE 92; RESP 20; TEMP 37.2; O2SAT 97
[2024-11-15 20:41] VITALS: BP 111/73; PULSE 92
--- NOTE | 2024-11-16 | ECG_ITS ---
Test Reason : RULE OUT PROLONGED QTC Blood Pressure : */* mmHG Vent. Rate : 86 BPM Atrial Rate : 86 BPM P-R Int : 158 ms QRS Dur : 136 ms QT Int : 384 ms P-R-T Axes : 41 -22 27 degrees QTcB Int : 459 ms Normal sinus rhythm Right bundle branch block Inferior infarct (cited on or before 17-Dec-2017) Abnormal ECG When compared with ECG of 02-Jun-2020 08:47, No significant change was found Referred By: Chandni Gee Electronically Signed By: Erik Jimenez
--- NOTE | 2024-11-16 10:12 | PC.NURSE ---
Assumed care and report received. He is in good spirits, he utilizes his walker for all ambulation. He is compliant with breakfast and meds. He responds verbally to internal stimuli. He is friendly and talks often with staff. He denies SI/HI
[2024-11-16 15:38] VITALS: BP 114/81; PULSE 82; RESP 18; TEMP 36.5; O2SAT 97
--- NOTE | 2024-11-16 18:25 | PC.NURSE ---
Addendum entered by Rose Harman RN 11/16/24 18:26: Pt has remained calm and cooperative, he has spent the shift coloring and talking with staff. He continues to respond to internal stimuli at times in his room. Original Note: Pts [facility] worker Tosha called to inquire of his location and safety as she sent 911 to do a well check.
[2024-11-16 20:01] VITALS: BP 132/90; PULSE 97
[2024-11-16 20:04] VITALS: BP 132/90; PULSE 97; RESP 18; TEMP 36.6; O2SAT 98
--- NOTE | 2024-11-16 20:46 | PC.NURSE ---
pt medicated and resting in his room.
--- NOTE | 2024-11-16 23:34 | PC.NURSE ---
pt sleeping at this time.
--- NOTE | 2024-11-17 03:36 | PC.NURSE ---
pt oob to bathroom and back to bed.
--- NOTE | 2024-11-17 07:39 | PC.NURSE ---
Assumed care, report received. Pt is calm and eating breakfast, safety maintained.
[2024-11-17 08:12] VITALS: BP 125/83; PULSE 101; RESP 16; TEMP 36.7; O2SAT 96
--- NOTE | 2024-11-17 11:03 | MHC.CARE ---
Patient's outpatient provider Hetal Enriquez ([facility]?) would like her information included for communication with inpatient SW. [phone]
[2024-11-17 15:00] VITALS: BP 141/82; PULSE 97; RESP 16; TEMP 36.4; O2SAT 97
[2024-11-17 15:22] VITALS: BMI 31.3
--- NOTE | 2024-11-17 15:53 | PC.ADMIT ---
Addendum entered by Gris Tam RN 11/17/24 16:33: Pt is a 64 year old male. He arrived on the unit at 1440 from [facility]. He has a history of schizoaffective d/o of bipolar type, chronic anemia, HTN, previous renal cell carcinoma. He has been living in [facility] [place] and reports sudden onset of auditory (not command) and visual hallucinations of people pointing guns at him and yelling. Per crisis report, pt is reporting paranoid delusions of people harming him. Pt presents as decompensated, with disorganized thoughts, poor and impaired insight and judgment. Pt has VNA through [facility], and has been medication compliant. During admission, pt was calm and cooperative. Pt placed on 5 minute checks for foreseeable future, d/t use of walker-he utilizes a cane in intermediate. Original Note: Yomi arrived on unit escorted by security, skin check and meter changes records clerk done. He has petechia on his right upper arm origin unknown and has psoriasis patches. Has scars on lower abd from surgery in past as well as old GT scar. Lower legs are cool to the touch. He has very large ankle bones on the left.
[2024-11-17 20:00] VITALS: BP 115/73; PULSE 98; RESP 18; TEMP 36.2; O2SAT 95
[2024-11-18 08:00] VITALS: BP 127/81; PULSE 95; RESP 16; TEMP 36.4; O2SAT 93
--- NOTE | 2024-11-18 08:43 | P.HPPS_ITS ---
HPI Date of Service: 11/18/24 Chief Complaint: paranoia Sources of Information: patient interviewed, chart reviewed and crisis/core team assessment reviewed HPI Subjective Notes: Rodriguez Warning and Conditional Voluntary Narrative: Mr. Forman is a 64 year old male with hx of schizoaffective disorder who was transported via EMS to [facility] ED after he called 911 reporting hallucinations and people pointing guns at him (per EMS report) and asked to be brought to the hospital. Pt is known to at [facility] through at least 4 prior inpatient psychiatric admission for increase psychosis/paranoid. Pertinent labs completed in the ED include: cbc with chronic normocytic anemia; CMP without electrolyte abnormalities, BUN 18, Cr 1.07, creatinine clearance 75.3. A1C 7.3% (seems like newly dx DM), TSH 2.90, Utox negative. UA without signs of UTI, wnl. depakote level 66. On the unit, pt presents as calm and pleasant. He reports he called 911. He reports he was concern about his roommate. He states he noticed a change in his behavior. His ability to tell the story leading to this hospitalization is marked by some sentences that are clear and logical followed by sentences lacking syntax and connection with topic at hand such as I can worrying like Reynaldo. When asked to elaborate, he would then change to another topic unrelated such as being on his computer all day but substance and meaning of that conversation is again illogical and unrelated. He smiles at times, some mild inappropriate laugh. He denied SI/HI. He denies any physical concerns. He reports his sleep is good and denies any concerns with his appetite. Collateral information was gathered from Hetal RIVERA from [facility]. She reports she sees him monthly for case management but not for psychotherapy. She denies any recent concerns in terms of his presentation. She reports they were informed that he was in the hospital after he had called 911. Collateral information was also gathered from his OP psych provider Aura Ga who reports she saw pt last in September 2024. At that time pt appeared stable. Past Psychiatric History: IP: Several. Cassie 06/03; [place] 2018, [facility] 10/2017; Wing 12/2016 and 09/2015 and 10/2015. 2020 OP: LAY Rain NP. [facility] services [facility]- Hetal Enriquez- [phone]. Trials: [facility] MR Review: Klonopin, Clozaril Haldol, Valium [place], Vraylar, Risperdal Medical Evaluation Reviewed: Yes [facility] Medical History Feeding by G-tube Bilateral cataracts Schizoaffective disorder, bipolar type Syncope Seizure Paraneoplastic syndrome Chronic headaches Colon cancer Hyperammonemia Esophageal stricture Encephalopathy Renal cell carcinoma Anemia Hernia Depression HTN (hypertension) Schizophrenia GERD (gastroesophageal reflux disease) Surgical History Hx of cataract extraction History of esophagogastroduodenoscopy (EGD) H/O colonoscopy History of left inguinal hernia repair H/O hemicolectomy Family History: pt unable to discuss Social History: Pt was born in [place]. He has a brother and one sister, Malissa and Cayden. He reports his father is still alive but he does not talk much with him. Never , no children. He reports he completed HS. Not working on disability. Substance History: none Trauma History: denies Diagnostics Vital Signs (24Hr): Vital Signs - 24 hr 11/17/24 15:00 11/17/24 20:00 Temperature 97.5 F 97.1 F Pulse Rate 97 98 Respiratory Rate 16 18 Blood Pressure 141/82 H 115/73 Pulse Oximetry 97 95 Oxygen Delivery Method Room Air Room Air BMI result Body Mass Index 31.3 Labs 11/14/24 18:23 11/18/24 15:57 Meds/Allergies Meds Home Medications ?Medication ?Instructions ?Recorded ?Confirmed ?Type metoprolol tartrate 25 mg tablet 25 mg PO BID 01/29/22 11/14/24 History divalproex 250 mg tablet,delayed 250 mg PO DAILY 11/2111/14/24 History release docusate sodium 100 mg capsule 100 mg PO BID PRN Const ipation 07/30/23 11/15/24 History chlorpromazine 25 mg tablet 25 mg PO BEDTIME 11/15/24 11/15/24 History chlorpromazine 25 mg tablet 25 mg PO DAILY PRN Agitati on 11/15/24 11/15/24 History furosemide 20 mg tablet 20 mg PO DAILY 11/15/2410/18 History Allergies Allergies Allergy/AdvReac Type Severity Reaction Status Date / Time haloperidol (From HALDOL) Allergy Unknown UNKNOWN Verified 11/14/24 17:59 adhesive tape AdvReac Unknown Rash Verified 11/14/24 17:59 Helidac Allergy Unknown seizure Uncoded 11/14/24 17:59 and stiffness Mental Status Exam Mental Status Exam Narrative: Appearance: wearing hospital gown, fair hygiene, in NAD Behavior: cooperative, friendly. Psychomotor: no agitation or retardation noted Speech: enunciation is clear, syntax errors noted, soft tone at times, regular rate, spontaneous TP: with some loose associations TC: feeling better here Mood: good Affect: congruent, laughs at times innappropriately SI: denies HI: denies VH/AH: denies but appears at times internally preoccupied Delusions: paranoid ideas about someone trying to harm him he reports his roommate but he does not have a roommate. Insight/judgment: poor x 2, although enough to call 911 and ask for help. Memory/cog: alert, oriented to place, month, year, situation Assessment & Plan Assessment & Plan (1) Schizoaffective disorder, bipolar type: Status: Acute Code(s): F25.0 - Schizoaffective disorder, bipolar type Plan Mr. Forman is a 64 year-old male with hx of schizoaffective disorder who called 911 reporting paranoid delusions and VH. He presents as calm, but his thought process at times is marked with loose associations and sentences also at times lack syntax. We discussed risks, benefits and alternative treatment options. Obtained collateral information from his OP provider. Will continue olanzapine 30mg po qhs, thorazine 25mg po TID. To our knowledge it appears he was taking medications as prescribed, but will continue to monitor and adjust medications as needed. PLAN 1. Admit to S1, CV, 15 minutes checks for safety. 2. continue olanzapine 30mg po qhs, thorazine 25mg po TID. monitor constipation, dry mouth, urinary retention with combination of anticholinergic medications. 3. OT assessments 4. Aftercare planning. 5. Noted A1c 7.5%--> seems like newly dx DM type 2. will order hospitalist consult and follow up OP as well. Patient educated on: diagnosis and medication risk/benefits Reason for continued inpatient stay Substantial Risk for: inability to function Statement Statement: I have reviewed the history and physical and performed a pertinent examination on my patient. No changes have occurred unless specified. If the History and Physical was not performed prior to admission, the Hospitalist's service will be consulted for completing the admission physical. Time Spent With Patient Time: Total time managing care of this patient today ____ minutes.
[2024-11-18 16:10] LABS: Hemoglobin A1C 178.7732 umol/L; Total Hemoglobin (HGBA1C) 3206.0593 umol/L
[2024-11-18 16:27] LABS: Alanine Aminotransferase 34 U/L (0-40); Albumin Level 4.1 g/dL (3.5-5.0); Alkaline Phosphatase 54 U/L (39-117); Anion Gap 12 (12-20); Aspartate Amino Transferase 38 U/L (5-37); Blood Urea Nitrogen 18 mg/dL (9-16); Calcium 9.3 mg/dL (8.4-10.2); Carbon Dioxide 27 mmol/L (22-29); Chloride 108 mmol/L (96-108); Cholesterol 130 mg/dL (<200); Creatinine Clr Calc Pharmacy 75.9; Estimated Glomerular Filt Rate > 60; HDL Cholesterol 35 mg/dL (>40); Iron 65 mcg/dL (45-160); Percent Iron Saturation 22 % (15-50); Potassium 4.6 mmol/L (3.3-5.1); Sodium 142 mmol/L (135-145); Total Iron Binding Capacity 300 mcg/dL (228-428); Total Protein 6.6 g/dL (6.5-8.0); Triglycerides 188 mg/dL (<150); Unsaturated Iron Binding 235 ug/dL
[2024-11-18 16:41] LABS: Thyroid Stimulating Hormone 2.90 uIU/mL (0.32-4.0)
[2024-11-18 16:53] LABS: Folate 8.4 ng/mL (> or = 4.0); Vitamin B12 265 pg/mL (200-900)
[2024-11-18 20:00] VITALS: BP 130/82; PULSE 97; RESP 16; TEMP 36.4; O2SAT 96
[2024-11-19 08:00] VITALS: BP 119/74; PULSE 94; RESP 16; TEMP 36.4; O2SAT 97
[2024-11-19 09:15] VITALS: BP 119/74; PULSE 94
[2024-11-19 13:44] VITALS: BMI 31.6
--- NOTE | 2024-11-19 16:39 | HO.PSYCHPN ---
Subjective Subjective Date of Service: 11/19/24 Reason For Visit: paranoia Subjective Notes: Conditional Voluntary Interim History: Pt slept through the night. Pt reports day before saw people with guns, he reports but that's in my mind, not real. He reports he feels safe here. He has been visible, not aggression towards self or others. taking medications. reports dry mouth. denies constipation. visible participating in some groups and in assessments with OT. She denies SI/HI. Medication Compliance: Yes Side effects from medications: No Review of Systems Review of Systems No SOB, no chest pain, denies constipation/abdominal pain. Yes all other systems are reviewed and are negative Constitutional: Denies fatigue and Denies fever(s) Cardiovascular: Denies chest pain and Denies dyspnea Respiratory: Denies dyspnea Gastrointestinal: Denies abdominal pain, Denies nausea and Denies vomiting Psychiatric: Reports auditory hallucinations, Reports visual hallucinations, Denies homicidal ideation and Denies suicidal ideation Endocrine: Denies fatigue Mental Status Exam Mental Status Exam Narrative: Appearance: wearing hospital gown, fair hygiene, in NAD Behavior: cooperative, friendly. Psychomotor: no agitation or retardation noted Speech: enunciation is clear, syntax errors noted, soft tone at times, regular rate, spontaneous TP: with some loose associations TC: feeling better here Mood: good Affect: congruent, laughs at times innappropriately SI: denies HI: denies VH/AH: denies but appears at times internally preoccupied Delusions: paranoid ideas about someone trying to harm him he reports his roommate but he does not have a roommate. Insight/judgment: poor x 2, although enough to call 911 and ask for help. Memory/cog: alert, oriented to place, month, year, situation Diagnostics Vital Signs (24Hr): Vital Signs - 24 hr 11/18/24 20:00 11/19/24 08:00 11/19/24 09:15 Temperature 97.6 F 97.5 F Pulse Rate 97 94 94 Respiratory Rate 16 16 Blood Pressure 130/82 119/74 119/74 Pulse Oximetry 96 97 Oxygen Delivery Method Room Air Room Air BMI result Body Mass Index 31.6 Labs 11/14/24 18:23 11/18/24 15:57 Labs: Laboratory Results - last 48 hr 11/18/24 15:57 Sodium 142 Potassium 4.6 Chloride 108 Carbon Dioxide 27 Anion Gap 12 BUN 18 H Creatinine 1.07 Estim Creat Clear Calc 75.9 Estimated GFR > 60 Random Glucose 141 H Estimat Average Glucose 163 Hemoglobin A1c % 7.3 H Calcium 9.3 Iron 65 TIBC 300 % Saturation 22 Unsat Iron Binding 235 Total Bilirubin 0.4 AST 38 H ALT 34 Alkaline Phosphatase 54 Total Protein 6.6 Albumin 4.1 Triglycerides 188 H Cholesterol 130 LDL Cholesterol, Calc 58 HDL Cholesterol 35 L Vitamin B12 265 Folate 8.4 TSH 2.90 Medications Medications Current Medications Acetaminophen (Acetaminophen 325 Mg Tablet) 650 mg PO Q6H PRN PRN Reason: Headache/Pain, Scale 1-10 Al Hydroxide/Mg Hydroxide (Magnesium Hydrox/Alum Hydrox 30 Ml Oral.Susp) 30 ml PO Q6H PRN PRN Reason: Heartburn/Nausea Benztropine Mesylate (Benztropine Mesylate 1 Mg Tablet) 1 mg PO BID PRN PRN Reason: extrapyramidal effects/symptoms Chlorpromazine HCl (Chlorpromazine Hcl 25 Mg Tablet) 25 mg PO TID [facility] Last Admin: 11/19/24 15:37 Dose: 25 mg Divalproex Sodium (Divalproex Sodium Er 500 Mg Tab.Er.24h) 1,000 mg PO BEDTIME [facility] Last Admin: 11/18/24 20:14 Dose: 1,000 mg Divalproex Sodium (Divalproex Sodium 250 Mg Tablet.Dr) 250 mg PO DAILY [facility] Last Admin: 11/19/24 09:16 Dose: 250 mg Finasteride (Finasteride 5 Mg Tablet) 5 mg PO DAILY [facility] Last Admin: 11/19/24 09:15 Dose: 5 mg Magnesium Hydroxide (Milk Of Magnesia 30 Ml Oral.Susp) 30 ml PO DAILY PRN PRN Reason: Constipation Metformin HCl (Metformin Hcl Er 500 Mg Tab.Er.24h) 500 mg PO DAILY@1700 [facility] Last Admin: 11/19/24 16:22 Dose: 500 mg Metoprolol Tartrate (Metoprolol Tartrate 25 Mg Tablet) 25 mg PO BID [facility]; Protocol Last Admin: 11/19/24 09:15 Dose: 25 mg Nicotine Polacrilex (Nicotine Polacrilex 2 Mg Gum) 2 mg BUCCAL Q2H PRN PRN Reason: Nicotine Cravings Olanzapine (Olanzapine 10 Mg Tablet) 30 mg PO BEDTIME [facility] Last Admin: 11/18/24 20:14 Dose: 30 mg Omeprazole (Omeprazole 20 Mg Capsule.) 20 mg PO DAILY@0630 [facility] Last Admin: 11/19/24 05:55 Dose: 20 mg Trazodone HCl (Trazodone Hcl 50 Mg Tablet) 50 mg PO BEDTIME [id number] PRN PRN Reason: Insomnia Vitamin D (Cholecalciferol (Vitamin D3) 25 Mcg Tablet) 25 mcg PO DAILY [facility] Last Admin: 11/19/24 09:15 Dose: 25 mcg Allergies Allergies Allergy/AdvReac Type Severity Reaction Status Date / Time haloperidol (From HALDOL) Allergy Unknown UNKNOWN Verified 11/14/24 17:59 adhesive tape AdvReac Unknown Rash Verified 11/14/24 17:59 Helidac Allergy Unknown seizure Uncoded 11/14/24 17:59 and stiffness Assessment & Plan Assessment & Plan (1) Schizoaffective disorder, bipolar type: Status: Acute Code(s): F25.0 - Schizoaffective disorder, bipolar type Plan Mr. Forman is a 64 year-old male with hx of schizoaffective disorder who called 911 reporting paranoid delusions and VH. He presents as calm, but his thought process at times is marked with loose associations and sentences also at times lack syntax. We discussed risks, benefits and alternative treatment options. Obtained collateral information from his OP provider. Will continue olanzapine 30mg po qhs, thorazine 25mg po TID. To our knowledge it appears he was taking medications as prescribed, but will continue to monitor and adjust medications as needed. PLAN 1. Admit to S1, CV, 15 minutes checks for safety. 2. continue olanzapine 30mg po qhs, thorazine 25mg po TID. monitor constipation, dry mouth, urinary retention with combination of anticholinergic medications. 3. OT assessments 4. Aftercare planning. 5. Noted A1c 7.5%--> seems like newly dx DM type 2. will order hospitalist consult and follow up OP as well. Reason for continued inpatient stay Substantial Risk for: inability to function Time Spent With Patient Time: Total time managing care of this patient today ____ minutes.
[2024-11-19 20:00] VITALS: BP 119/73; PULSE 86; RESP 16; TEMP 36.3; O2SAT 94
--- NOTE | 2024-11-20 09:33 | HO.PSYCHPN ---
Subjective Subjective Date of Service: 11/20/24 Reason For Visit: paranoia Subjective Notes: Conditional Voluntary Interim History: Pt slept through the night. He denies paranoid delusions. He states he feels safe to return back home. He reports he enjoys groups here. He is taking medications as prescribed. No behavioral concerns. Medication Compliance: Yes Review of Systems Review of Systems unremarkable Yes all other systems are reviewed and are negative Constitutional: Denies fatigue and Denies fever(s) Cardiovascular: Denies chest pain and Denies dyspnea Respiratory: Denies dyspnea Gastrointestinal: Denies abdominal pain, Denies nausea and Denies vomiting Psychiatric: Reports auditory hallucinations, Reports visual hallucinations, Denies homicidal ideation and Denies suicidal ideation Endocrine: Denies fatigue Mental Status Exam Mental Status Exam Narrative: Appearance: wearing hospital gown, fair hygiene, in NAD Behavior: cooperative, friendly. Psychomotor: no agitation or retardation noted Speech: enunciation is clear, syntax errors noted, soft tone at times, regular rate, spontaneous TP: with some loose associations TC: feeling better here Mood: good Affect: congruent SI: denies HI: denies VH/AH: denies Delusions: denied Insight/judgment: improving Memory/cog: alert, oriented to place, month, year, situation Diagnostics Vital Signs (24Hr): Vital Signs - 24 hr 11/19/24 20:00 Temperature 97.3 F Pulse Rate 86 Respiratory Rate 16 Blood Pressure 119/73 Pulse Oximetry 94 Oxygen Delivery Method Room Air BMI result Body Mass Index 31.6 Labs 11/14/24 18:23 11/18/24 15:57 Labs: Laboratory Results - last 48 hr 11/18/24 15:57 Sodium 142 Potassium 4.6 Chloride 108 Carbon Dioxide 27 Anion Gap 12 BUN 18 H Creatinine 1.07 Estim Creat Clear Calc 75.9 Estimated GFR > 60 Random Glucose 141 H Estimat Average Glucose 163 Hemoglobin A1c % 7.3 H Calcium 9.3 Iron 65 TIBC 300 % Saturation 22 Unsat Iron Binding 235 Total Bilirubin 0.4 AST 38 H ALT 34 Alkaline Phosphatase 54 Total Protein 6.6 Albumin 4.1 Triglycerides 188 H Cholesterol 130 LDL Cholesterol, Calc 58 HDL Cholesterol 35 L Vitamin B12 265 Folate 8.4 TSH 2.90 Medications Medications Current Medications Acetaminophen (Acetaminophen 325 Mg Tablet) 650 mg PO Q6H PRN PRN Reason: Headache/Pain, Scale 1-10 Al Hydroxide/Mg Hydroxide (Magnesium Hydrox/Alum Hydrox 30 Ml Oral.Susp) 30 ml PO Q6H PRN PRN Reason: Heartburn/Nausea Benztropine Mesylate (Benztropine Mesylate 1 Mg Tablet) 1 mg PO BID PRN PRN Reason: extrapyramidal effects/symptoms Chlorpromazine HCl (Chlorpromazine Hcl 25 Mg Tablet) 25 mg PO TID [facility] Last Admin: 11/19/24 20:18 Dose: 25 mg Divalproex Sodium (Divalproex Sodium Er 500 Mg Tab.Er.24h) 1,000 mg PO BEDTIME [facility] Last Admin: 11/19/24 20:18 Dose: 1,000 mg Divalproex Sodium (Divalproex Sodium 250 Mg Tablet.) 250 mg PO DAILY [facility] Last Admin: 11/19/24 09:16 Dose: 250 mg Finasteride (Finasteride 5 Mg Tablet) 5 mg PO DAILY [facility] Last Admin: 11/19/24 09:15 Dose: 5 mg Magnesium Hydroxide (Milk Of Magnesia 30 Ml Oral.Susp) 30 ml PO DAILY PRN PRN Reason: Constipation Metformin HCl (Metformin Hcl Er 500 Mg Tab.Er.24h) 500 mg PO DAILY@1700 [facility] Last Admin: 11/19/24 16:22 Dose: 500 mg Metoprolol Tartrate (Metoprolol Tartrate 25 Mg Tablet) 25 mg PO BID [facility]; Protocol Last Admin: 11/19/24 20:18 Dose: 25 mg Nicotine Polacrilex (Nicotine Polacrilex 2 Mg Gum) 2 mg BUCCAL Q2H PRN PRN Reason: Nicotine Cravings Olanzapine (Olanzapine 10 Mg Tablet) 30 mg PO BEDTIME [facility] Last Admin: 11/19/24 20:18 Dose: 30 mg Omeprazole (Omeprazole 20 Mg Capsule.) 20 mg PO DAILY@0630 [facility] Last Admin: 11/20/24 06:03 Dose: 20 mg Trazodone HCl (Trazodone Hcl 50 Mg Tablet) 50 mg PO BEDTIME MRX1 PRN PRN Reason: Insomnia Vitamin D (Cholecalciferol (Vitamin D3) 25 Mcg Tablet) 25 mcg PO DAILY [facility] Last Admin: 11/19/24 09:15 Dose: 25 mcg Allergies Allergies Allergy/AdvReac Type Severity Reaction Status Date / Time haloperidol (From HALDOL) Allergy Unknown UNKNOWN Verified 11/14/24 17:59 adhesive tape AdvReac Unknown Rash Verified 11/14/24 17:59 Helidac Allergy Unknown seizure Uncoded 11/14/24 17:59 and stiffness Assessment & Plan Assessment & Plan (1) Schizoaffective disorder, bipolar type: Status: Acute Code(s): F25.0 - Schizoaffective disorder, bipolar type Plan Mr. Forman is a 64 year-old male with hx of schizoaffective disorder who called 911 reporting paranoid delusions and VH. He presents as calm, but his thought process at times is marked with loose associations and sentences also at times lack syntax. We discussed risks, benefits and alternative treatment options. Obtained collateral information from his OP provider. Will continue olanzapine 30mg po qhs, thorazine 25mg po TID. To our knowledge it appears he was taking medications as prescribed, but will continue to monitor and adjust medications as needed. PLAN 11/20 continue current tx. pt appears stable. Reason for continued inpatient stay Substantial Risk for: inability to function Time Spent With Patient Time: Total time managing care of this patient today ____ minutes.
[2024-11-20 12:08] VITALS: BP 122/77; PULSE 100; RESP 16; TEMP 36.8; O2SAT 98
[2024-11-20] MEDS: Milk of Magnesia 30 ML ORAL.SUSP PO (16:55)
[2024-11-20 20:00] VITALS: BP 130/79; PULSE 96; RESP 16; TEMP 36.2; O2SAT 95
--- NOTE | 2024-11-21 07:41 | HO.PSYCHPN ---
Subjective Subjective Date of Service: 11/21/24 Reason For Visit: paranoia Interim History: overall no management issues. Sleeping well. Tolerating Thorazine. Reports feeling safe. No depression. Using iPad and enjoys playing [employer]. Endorsed paranoid delusions prior to admission and now reports that was him being paranoid i.e. endorses he was experiencing paranoid delusions Medication Compliance: Yes Side effects from medications: No Attending Groups: Intermittent Review of Systems Acute medical concerns: No Review of Systems Review of Systems unremarkable Mental Status Exam Mental Status Exam Narrative: Appearance: wearing hospital gown, fair hygiene, in NAD Behavior: cooperative, friendly. Psychomotor: no agitation or retardation noted Speech: enunciation is clear, syntax errors noted, soft tone at times, regular rate, spontaneous TP: with some loose associations TC: feeling better here Mood: good Affect: congruent SI: denies HI: denies VH/AH: denies Delusions: denied Insight/judgment: improving Memory/cog: alert, oriented to place, month, year, situation Diagnostics Vital Signs (24Hr): Vital Signs - 24 hr 11/20/24 12:08 11/20/24 20:00 Temperature 98.2 F 97.2 F Pulse Rate 100 96 Respiratory Rate 16 16 Blood Pressure 122/77 130/79 Pulse Oximetry 98 95 Oxygen Delivery Method Room Air Room Air BMI result Body Mass Index 31.6 Labs 11/14/24 18:23 11/18/24 15:57 Medications Medications Current Medications Acetaminophen (Acetaminophen 325 Mg Tablet) 650 mg PO Q6H PRN PRN Reason: Headache/Pain, Scale 1-10 Al Hydroxide/Mg Hydroxide (Magnesium Hydrox/Alum Hydrox 30 Ml Oral.Susp) 30 ml PO Q6H PRN PRN Reason: Heartburn/Nausea Benztropine Mesylate (Benztropine Mesylate 1 Mg Tablet) 1 mg PO BID PRN PRN Reason: extrapyramidal effects/symptoms Chlorpromazine HCl (Chlorpromazine Hcl 25 Mg Tablet) 25 mg PO TID [facility] Last Admin: 11/20/24 20:36 Dose: 25 mg Divalproex Sodium (Divalproex Sodium Er 500 Mg Tab.Er.24h) 1,000 mg PO BEDTIME [facility] Last Admin: 11/20/24 20:36 Dose: 1,000 mg Divalproex Sodium (Divalproex Sodium 250 Mg Tablet.) 250 mg PO DAILY [facility] Last Admin: 11/20/24 12:09 Dose: 250 mg Finasteride (Finasteride 5 Mg Tablet) 5 mg PO DAILY [facility] Last Admin: 11/20/24 12:10 Dose: 5 mg Magnesium Hydroxide (Milk Of Magnesia 30 Ml Oral.Susp) 30 ml PO DAILY PRN PRN Reason: Constipation Last Admin: 11/20/24 16:55 Dose: 30 ml Metformin HCl (Metformin Hcl Er 500 Mg Tab.Er.24h) 500 mg PO DAILY@1700 [facility] Last Admin: 11/20/24 16:55 Dose: 500 mg Metoprolol Tartrate (Metoprolol Tartrate 25 Mg Tablet) 25 mg PO BID [facility]; Protocol Last Admin: 11/20/24 20:36 Dose: 25 mg Nicotine Polacrilex (Nicotine Polacrilex 2 Mg Gum) 2 mg BUCCAL Q2H PRN PRN Reason: Nicotine Cravings Olanzapine (Olanzapine 10 Mg Tablet) 30 mg PO BEDTIME [facility] Last Admin: 11/20/24 20:36 Dose: 30 mg Omeprazole (Omeprazole 20 Mg Capsule.Dr) 20 mg PO DAILY@0630 [facility] Last Admin: 11/21/24 06:10 Dose: 20 mg Trazodone HCl (Trazodone Hcl 50 Mg Tablet) 50 mg PO BEDTIME MRX1 PRN PRN Reason: Insomnia Vitamin D (Cholecalciferol (Vitamin D3) 25 Mcg Tablet) 25 mcg PO DAILY [facility] Last Admin: 11/20/24 12:10 Dose: 25 mcg Allergies Allergies Allergy/AdvReac Type Severity Reaction Status Date / Time haloperidol (From HALDOL) Allergy Unknown UNKNOWN Verified 11/14/24 17:59 adhesive tape AdvReac Unknown Rash Verified 11/14/24 17:59 Helidac Allergy Unknown seizure Uncoded 11/14/24 17:59 and stiffness Assessment & Plan Assessment & Plan (1) Schizoaffective disorder, bipolar type: Status: Acute Code(s): F25.0 - Schizoaffective disorder, bipolar type Plan Mr. Forman is a 64 year-old male with hx of schizoaffective disorder who called 911 reporting paranoid delusions and VH. He presents as calm, but his thought process at times is marked with loose associations and sentences also at times lack syntax. We discussed risks, benefits and alternative treatment options. Obtained collateral information from his OP provider. Will continue olanzapine 30mg po qhs, thorazine 25mg po TID. To our knowledge it appears he was taking medications as prescribed, but will continue to monitor and adjust medications as needed. PLAN 1. Admit to S1, CV, 15 minutes checks for safety. 2. continue olanzapine 30mg po qhs, thorazine 25mg po TID. monitor constipation, dry mouth, urinary retention with combination of anticholinergic medications. 3. OT assessments 4. Aftercare planning. 5. Noted A1c 7.5%--> seems like newly dx DM type 2. will order hospitalist consult and follow up OP as well. 11/21/2024: No changes to current management Reason for continued inpatient stay Substantial Risk for: inability to function and rapid decompensation Time Spent With Patient Time: Total time managing care of this patient today ____ minutes.
[2024-11-21 08:00] VITALS: BP 89/60; PULSE 81; RESP 16; TEMP 36.8; O2SAT 94
[2024-11-21 20:00] VITALS: BP 115/60; PULSE 96; RESP 16; TEMP 36.7; O2SAT 94
[2024-11-22 08:00] VITALS: BP 135/75; PULSE 93; RESP 16; O2SAT 95
--- NOTE | 2024-11-22 11:26 | HO.PSYCHPN ---
Subjective Subjective Date of Service: 11/22/24 Reason For Visit: paranoia Interim History: overall no management issues. Sleeping well. Reports feeling safe. No depression . No delusions. Feeling well cared for and looking to disposition planning with treatment team Medication Compliance: Yes Side effects from medications: No Attending Groups: No Review of Systems Acute medical concerns: No Review of Systems Review of Systems unremarkable Mental Status Exam Mental Status Exam Narrative: Appearance: wearing hospital gown, fair hygiene, in NAD Behavior: cooperative, friendly. Psychomotor: no agitation or retardation noted Speech: enunciation is clear, syntax errors noted, soft tone at times, regular rate, spontaneous TP: with some loose associations TC: feeling better here Mood: good Affect: congruent SI: denies HI: denies VH/AH: denies Delusions: denied Insight/judgment: improving Memory/cog: alert, oriented to place, month, year, situation Diagnostics Vital Signs (24Hr): Vital Signs - 24 hr 11/21/24 20:00 11/22/24 08:00 Temperature 98.1 F Pulse Rate 96 93 Respiratory Rate 16 16 Blood Pressure 115/60 135/75 Pulse Oximetry 94 95 Oxygen Delivery Method Room Air Room Air BMI result Body Mass Index 31.6 Labs 11/14/24 18:23 11/18/24 15:57 Medications Medications Current Medications Acetaminophen (Acetaminophen 325 Mg Tablet) 650 mg PO Q6H PRN PRN Reason: Headache/Pain, Scale 1-10 Al Hydroxide/Mg Hydroxide (Magnesium Hydrox/Alum Hydrox 30 Ml Oral.Susp) 30 ml PO Q6H PRN PRN Reason: Heartburn/Nausea Benztropine Mesylate (Benztropine Mesylate 1 Mg Tablet) 1 mg PO BID PRN PRN Reason: extrapyramidal effects/symptoms Chlorpromazine HCl (Chlorpromazine Hcl 25 Mg Tablet) 25 mg PO TID [facility] Last Admin: 11/22/24 08:40 Dose: 25 mg Divalproex Sodium (Divalproex Sodium Er 500 Mg Tab.Er.24h) 1,000 mg PO BEDTIME [facility] Last Admin: 11/21/24 20:30 Dose: 1,000 mg Divalproex Sodium (Divalproex Sodium 250 Mg Tablet.Dr) 250 mg PO DAILY [facility] Last Admin: 11/22/24 08:40 Dose: 250 mg Finasteride (Finasteride 5 Mg Tablet) 5 mg PO DAILY [facility] Last Admin: 11/22/24 08:40 Dose: 5 mg Magnesium Hydroxide (Milk Of Magnesia 30 Ml Oral.Susp) 30 ml PO DAILY PRN PRN Reason: Constipation Last Admin: 11/20/24 16:55 Dose: 30 ml Metformin HCl (Metformin Hcl Er 500 Mg Tab.Er.24h) 500 mg PO DAILY@1700 [facility] Last Admin: 11/21/24 17:22 Dose: 500 mg Metoprolol Tartrate (Metoprolol Tartrate 25 Mg Tablet) 25 mg PO BID [facility]; Protocol Last Admin: 11/22/24 08:40 Dose: 25 mg Nicotine Polacrilex (Nicotine Polacrilex 2 Mg Gum) 2 mg BUCCAL Q2H PRN PRN Reason: Nicotine Cravings Olanzapine (Olanzapine 10 Mg Tablet) 30 mg PO BEDTIME [facility] Last Admin: 11/21/24 20:31 Dose: 30 mg Omeprazole (Omeprazole 20 Mg Capsule.Dr) 20 mg PO DAILY@0630 [facility] Last Admin: 11/22/24 06:30 Dose: 20 mg Trazodone HCl (Trazodone Hcl 50 Mg Tablet) 50 mg PO BEDTIME MRX1 PRN PRN Reason: Insomnia Vitamin D (Cholecalciferol (Vitamin D3) 25 Mcg Tablet) 25 mcg PO DAILY [facility] Last Admin: 11/22/24 08:40 Dose: 25 mcg Allergies Allergies Allergy/AdvReac Type Severity Reaction Status Date / Time haloperidol (From HALDOL) Allergy Unknown UNKNOWN Verified 11/14/24 17:59 adhesive tape AdvReac Unknown Rash Verified 11/14/24 17:59 Helidac Allergy Unknown seizure Uncoded 11/14/24 17:59 and stiffness Assessment & Plan Assessment & Plan (1) Schizoaffective disorder, bipolar type: Status: Acute Code(s): F25.0 - Schizoaffective disorder, bipolar type Plan Mr. Forman is a 64 year-old male with hx of schizoaffective disorder who called 911 reporting paranoid delusions and VH. He presents as calm, but his thought process at times is marked with loose associations and sentences also at times lack syntax. We discussed risks, benefits and alternative treatment options. Obtained collateral information from his OP provider. Will continue olanzapine 30mg po qhs, thorazine 25mg po TID. To our knowledge it appears he was taking medications as prescribed, but will continue to monitor and adjust medications as needed. PLAN 1. Admit to S1, CV, 15 minutes checks for safety. 2. continue olanzapine 30mg po qhs, thorazine 25mg po TID. monitor constipation, dry mouth, urinary retention with combination of anticholinergic medications. 3. OT assessments 4. Aftercare planning. 5. Noted A1c 7.5%--> seems like newly dx DM type 2. will order hospitalist consult and follow up OP as well. 11/21/2024: No changes to current management 11/22/2024: No changes Reason for continued inpatient stay Substantial Risk for: rapid decompensation Time Spent With Patient Time: Total time managing care of this patient today ____ minutes.
[2024-11-22 20:00] VITALS: BP 133/74; PULSE 97; RESP 16; TEMP 36.2; O2SAT 93
--- NOTE | 2024-11-23 07:49 | P.PNPSI_ITS ---
Subjective Subjective Date of Service: 11/23/24 Reason For Visit: paranoia Subjective Notes: Conditional Voluntary Interim History: Pt slept through the night. He denies paranoid delusions. He continues to report that he feels safe to return back home. He reports he enjoys groups here. He is taking medications as prescribed. No behavioral concerns. Review of Systems Review of Systems unremarkable Yes all other systems are reviewed and are negative Constitutional: Denies fatigue and Denies fever(s) Cardiovascular: Denies chest pain and Denies dyspnea Respiratory: Denies dyspnea Gastrointestinal: Denies abdominal pain, Denies nausea and Denies vomiting Psychiatric: Reports auditory hallucinations, Reports visual hallucinations, Denies homicidal ideation and Denies suicidal ideation Endocrine: Denies fatigue Mental Status Exam Mental Status Exam Narrative: Appearance: wearing hospital gown, fair hygiene, in NAD Behavior: cooperative, friendly. Psychomotor: no agitation or retardation noted Speech: enunciation is clear, syntax errors noted, soft tone at times, regular rate, spontaneous TP: with some loose associations TC: feeling better here Mood: good Affect: congruent SI: denies HI: denies VH/AH: denies Delusions: denied Insight/judgment: improving Memory/cog: alert, oriented to place, month, year, situation Diagnostics Vital Signs (24Hr): Vital Signs - 24 hr 11/22/24 08:00 11/22/24 20:00 Temperature 97.2 F Pulse Rate 93 97 Respiratory Rate 16 16 Blood Pressure 135/75 133/74 Pulse Oximetry 95 93 Oxygen Delivery Method Room Air Room Air BMI result Body Mass Index 31.6 Labs 11/14/24 18:23 11/18/24 15:57 Medications Medications Current Medications Acetaminophen (Acetaminophen 325 Mg Tablet) 650 mg PO Q6H PRN PRN Reason: Headache/Pain, Scale 1-10 Al Hydroxide/Mg Hydroxide (Magnesium Hydrox/Alum Hydrox 30 Ml Oral.Susp) 30 ml PO Q6H PRN PRN Reason: Heartburn/Nausea Benztropine Mesylate (Benztropine Mesylate 1 Mg Tablet) 1 mg PO BID PRN PRN Reason: extrapyramidal effects/symptoms Chlorpromazine HCl (Chlorpromazine Hcl 25 Mg Tablet) 25 mg PO TID [facility] Last Admin: 11/22/24 20:55 Dose: 25 mg Divalproex Sodium (Divalproex Sodium Er 500 Mg Tab.Er.24h) 1,000 mg PO BEDTIME [facility] Last Admin: 11/22/24 20:55 Dose: 1,000 mg Divalproex Sodium (Divalproex Sodium 250 Mg Tablet.Dr) 250 mg PO DAILY [facility] Last Admin: 11/22/24 08:40 Dose: 250 mg Finasteride (Finasteride 5 Mg Tablet) 5 mg PO DAILY [facility] Last Admin: 11/22/24 08:40 Dose: 5 mg Magnesium Hydroxide (Milk Of Magnesia 30 Ml Oral.Susp) 30 ml PO DAILY PRN PRN Reason: Constipation Last Admin: 11/20/24 16:55 Dose: 30 ml Metformin HCl (Metformin Hcl Er 500 Mg Tab.Er.24h) 500 mg PO DAILY@1700 [facility] Last Admin: 11/22/24 17:10 Dose: 500 mg Metoprolol Tartrate (Metoprolol Tartrate 25 Mg Tablet) 25 mg PO BID [facility]; Protocol Last Admin: 11/22/24 20:55 Dose: 25 mg Nicotine Polacrilex (Nicotine Polacrilex 2 Mg Gum) 2 mg BUCCAL Q2H PRN PRN Reason: Nicotine Cravings Olanzapine (Olanzapine 10 Mg Tablet) 30 mg PO BEDTIME [facility] Last Admin: 11/22/24 20:55 Dose: 30 mg Omeprazole (Omeprazole 20 Mg Capsule.Dr) 20 mg PO DAILY@0630 [facility] Last Admin: 11/23/24 06:26 Dose: 20 mg Trazodone HCl (Trazodone Hcl 50 Mg Tablet) 50 mg PO BEDTIME MRX1 PRN PRN Reason: Insomnia Vitamin D (Cholecalciferol (Vitamin D3) 25 Mcg Tablet) 25 mcg PO DAILY [facility] Last Admin: 11/22/24 08:40 Dose: 25 mcg Allergies Allergies Allergy/AdvReac Type Severity Reaction Status Date / Time haloperidol (From HALDOL) Allergy Unknown UNKNOWN Verified 11/14/24 17:59 adhesive tape AdvReac Unknown Rash Verified 11/14/24 17:59 Helidac Allergy Unknown seizure Uncoded 11/14/24 17:59 and stiffness Assessment & Plan Assessment & Plan (1) Schizoaffective disorder, bipolar type: Status: Acute Code(s): F25.0 - Schizoaffective disorder, bipolar type Plan Mr. Forman is a 64 year-old male with hx of schizoaffective disorder who called 911 reporting paranoid delusions and VH. He presents as calm, but his thought process at times is marked with loose associations and sentences also at times lack syntax. We discussed risks, benefits and alternative treatment options. Obtained collateral information from his OP provider. Will continue olanzapine 30mg po qhs, thorazine 25mg po TID. To our knowledge it appears he was taking medications as prescribed, but will continue to monitor and adjust medications as needed. PLAN 11/20 continue current tx. pt appears stable. 11/23 continue tx. Reason for continued inpatient stay Substantial Risk for: inability to function Time Spent With Patient Time: Total time managing care of this patient today ____ minutes.
[2024-11-23 08:00] VITALS: BP 118/75; PULSE 100; RESP 16; TEMP 36.1; O2SAT 93
[2024-11-23 08:29] VITALS: BP 118/75; PULSE 100
[2024-11-23 20:00] VITALS: BP 125/87; PULSE 100; RESP 16; TEMP 36.3; O2SAT 93
[2024-11-24 08:00] VITALS: BP 114/70; PULSE 87; RESP 18; TEMP 3.1; TEMP 37.6; O2SAT 97
--- NOTE | 2024-11-24 09:36 | P.DS_ITS ---
DS: Providers Provider Date of Service: 11/24/24 Date of admission: 11/17/24 13:18 Date of discharge: 11/24/24 Primary care physician: Unknown Physician DS: Diagnosis Discharge Diagnosis (1) Schizoaffective disorder, bipolar type: Status: Acute DS: Medications Discharge Medications Home Medications: Home Medications ?Medication ?Instructions ?Recorded ?Confirmed metoprolol tartrate 25 mg tablet 25 mg PO BID 01/29/22 11/14/24 divalproex 250 mg tablet,delayed 250 mg PO DAILY 11/2111/14/24 release docusate sodium 100 mg capsule 100 mg PO BID PRN Const ipation 07/30/23 11/15/24 chlorpromazine 25 mg tablet 25 mg PO BEDTIME 11/15/24 11/15/24 chlorpromazine 25 mg tablet 25 mg PO DAILY PRN Agitati on 11/15/24 11/15/24 furosemide 20 mg tablet 20 mg PO DAILY 11/15/2410/18 Previous Rx's ?Medication ?Instructions ?Recorded benztropine 1 mg tablet 1 mg PO BID PRN extrapyramid al 06/01/20 effects/symptoms #60 tabs cholecalciferol (vitamin D3) 25 25 mcg PO DAILY #30 ta bs 06/01/20 mcg (1,000 unit) tablet divalproex 500 mg tablet,extended 1,000 mg (2 x 500 mg ) PO BEDTIME 06/01/20 release 24 hr (Depakote ER) #60 tabs finasteride 5 mg tablet 5 mg PO DAILY 90 days #30 ta bs 06/01/20 olanzapine 10 mg tablet 30 mg (3 x 10 mg) PO BEDTIME #90 06/01/20 tabs omeprazole 20 mg capsule,delayed 20 mg PO DAILY@0630 # 30 caps 06/01/20 release Mental Status Exam Mental Status Exam Narrative: Appearance: wearing hospital gown, fair hygiene, in NAD Behavior: cooperative, friendly. Psychomotor: no agitation or retardation noted Speech: enunciation is clear, syntax errors noted, soft tone at times, regular rate, spontaneous TP: with some loose associations TC: feeling better here Mood: good Affect: congruent SI: denies HI: denies VH/AH: denies Delusions: denied Insight/judgment: improving Memory/cog: alert, oriented to place, month, year, situation Data Data Completed and Pending Completed studies during hospitalization [Text1]: 11/18/24 15:57 Sodium 142 Potassium 4.6 Chloride 108 Carbon Dioxide 27 Anion Gap 12 BUN 18 H Creatinine 1.07 Estim Creat Clear Calc 75.9 Estimated GFR > 60 Random Glucose 141 H Estimat Average Glucose 163 Hemoglobin A1c % 7.3 H Calcium 9.3 Iron 65 TIBC 300 % Saturation 22 Unsat Iron Binding 235 Total Bilirubin 0.4 AST 38 H ALT 34 Alkaline Phosphatase 54 Total Protein 6.6 Albumin 4.1 Triglycerides 188 H Cholesterol 130 LDL Cholesterol, Calc 58 HDL Cholesterol 35 L Vitamin B12 265 Folate 8.4 TSH 2.90 DS: Summary Hospital Course Hospital Course: Narrative: 60 yo male, history of schizoaffective disorder, bipolar type presents via police, EMS. Pt was found in the street, wandering, self- dialoguing, arguing and confused. Pt reportedly was in rehab after surgery, but has been living in a [facility] intermediate in [place] since September 2019 and had been transitioning to an independent apartment. Pt recently was reportedly [place] toxic, so last dose of [place] was given on 04/17/20 and pt has been decompensating with the loss of [place]. Pt has no listed providers. Message left for [facility] for information. Pt is a very poor historian. He is labile with speech that is difficult to understand, a word salad quality to content, full range of tone-whisper to shouting, laughing and unmodulated. Pt admitted under a Section XIIB. Past Psychiatric History: [place]. [place] 06[place]03[place] [facility] [place] and [place]2015. Out Pt: No providers listed. Pt giggles when asked. [place] [facility] [place] Klonopin, Clozaril Haldol, Valium [place], Vraylar, Risperdal HOSPITAL COURSE On the unit, pt was admitted on a CV and placed on 15 minutes checks for safety. Pt initially had reported not feeling safe and while on the unit, he reported seeing people with guns outside. He had some insight that he was safe and that no one was trying to harm him. He agreed to continue medications as prescribed including olanzapine 30mg po qhs and thorazine. He denied constipation. He did report dry mouth but denied urinary retention. He was gradually visible on the unit, social with peers. He attended assigned groups and seemed to enjoy socialization. He denied SI/HI. He also denied fear of returning home. He did not show any signs of aggression towards self or others. He was sleeping and eating well. Collateral information gathered from [facility] providers who denied any safety concerns. In term of medical update- he had A1c which was 7.4%, newly dx with DM, needs to follow up with PCP for further treatment and monitoring. He was started on Metformin ER 500mg po daily. Status at Discharge Cognitive/behavioral status at discharge: Pt with brighter, non labile affect. No SI/HI. No VH/AH. No overt delusions. Sleeping and eating well. No aggression towards self or others. Functional status at discharge: independent ambulation Overall status at discharge: patient is progressing back to baseline Time Spent with Patient Time attestation: Total time managing care of this patient today _40___ minutes. Time spent: Greater than 30 minutes Discharge Plan Discharge Anticipated Discharge Date/Time: 11/24/24 09:42 Patient Disposition: Home, Self-Care Discharge Diagnosis: Schizophrenia DM type 2- newly dx- started on metformin ER 500mg po daily Referrals: Physician,Unknown J [Primary Care Provider, Medical] - 1 Week Discharge Medications: New divalproex 250 mg Tablet,Delayed Release (Dr/Ec) 250 mg PO DAILY Qty: 30 0RF chlorpromazine 25 mg Tablet 25 mg PO TID Qty: 90 0RF divalproex 500 mg Tablet Extended Release 24 Hr 1,000 mg PO BEDTIME Qty: 30 0RF metoprolol tartrate 25 mg Tablet 25 mg PO BID Qty: 60 0RF Protocol: Hold for SBP/HR < HOLD for SBP < : 90 HOLD for HR < : 60 metformin 500 mg Tablet Extended Release 24 Hr 500 mg PO DAILY@1700 Qty: 30 0RF olanzapine 20 mg tablet 20 mg PO BEDTIME Qty: 30 0RF finasteride 5 mg Tablet 5 mg PO DAILY Qty: 30 0RF cholecalciferol (vitamin D3) 25 mcg (1,000 unit) Tablet 25 mcg PO DAILY Qty: 30 0RF olanzapine 10 mg tablet 10 mg PO BEDTIME Qty: 30 0RF Continued omeprazole 20 mg Capsule,Delayed Release(Dr/Ec) 20 mg PO DAILY@0630 Qty: 30 1RF docusate sodium 100 mg capsule 100 mg PO BID PRN (Reason: Constipation) Discontinued olanzapine 10 mg Tablet 30 mg PO BEDTIME Qty: 90 0RF cholecalciferol (vitamin D3) 25 mcg (1,000 unit) Tablet 25 mcg PO DAILY Qty: 30 1RF benztropine 1 mg tablet 1 mg PO BID PRN (Reason: extrapyramidal effects/symptoms) Qty: 60 0RF divalproex [Depakote ER] 500 mg Tablet Extended Release 24 Hr 1,000 mg PO BEDTIME Qty: 60 1RF finasteride 5 mg tablet 5 mg PO DAILY 90 Days Qty: 30 1RF divalproex 250 mg tablet,delayed release (DR/EC) 250 mg PO DAILY furosemide 20 mg Tablet 20 mg PO DAILY chlorpromazine 25 mg Tablet 25 mg PO BEDTIME chlorpromazine 25 mg Tablet 25 mg PO DAILY PRN (Reason: Agitation) metoprolol tartrate 25 mg tablet 25 mg PO BID Discharge Orders: Discharge Order (Routine); Ordered 11/24/24 Ordered By: Pretty Barkley Diet: Diabetic diet Activity on Discharge: As tolerated Stand Alone Forms: Patient Portal Discharge page Print Language: Yi Care Plan Goals: maintain mood No SI/HI No aggression towards self or others. Health Concerns: Follow up with PCP---> DM type 2- newly dx- started on metformin ER 500mg po daily. A1c 7.4% Plan of Treatment: Take medications as prescribed. Go to nearest ED or call 911 in event of emergency. Assessment: Pt with brighter, non labile affect. No SI/HI. No overt psychosis or delusions. Sleeping and eating well. No aggression towards self or others
== END 2024-11-24 12:05 | disposition home or self-care (01) | DRG 885 ==
LOC: HO.ED 19:57 → HO.PGERI 11-17 13:36
PROVIDERS: Admitting Provider Social Worker; Emergency Provider Emergency Medicine; Visit Provider Social Worker
DX: F25.0 Schizoaffective disorder, bipolar type (principal); D64.9 Anemia, unspecified; Z85.528 Personal history of other malignant neoplasm of kidney; Z79.899 Other long term (current) drug therapy
CPT/HCPCS: 36415; 70450; 72125; 80053; 80061; 80164; 80307; 81001; 82607; 82746; 83036; 83540; 84443; 85025; 93005; 99285; S9485

== ENCOUNTER → 2024-11-15 02:22 | Outpatient (BNV) | payer OTHER, SELFPAY | PROVIDERS: Emergency Provider Emergency Medicine; Visit Provider Radiology Diagnostic Radiology | DX: M47.812 Spondylosis without myelopathy or radiculopathy, cervical region (principal); G31.1 Senile degeneration of brain, not elsewhere classified | CPT/HCPCS: 70450; 72125 ==

== ENCOUNTER → 2024-11-16 15:30 | Outpatient (BNV) | payer OTHER, SELFPAY | PROVIDERS: Admitting Provider Social Worker; Emergency Provider Emergency Medicine; Visit Provider Internal Medicine Cardiovascular Disease | DX: I45.10 Unspecified right bundle-branch block (principal); I25.2 Old myocardial infarction | CPT/HCPCS: 93010 ==

== ENCOUNTER → 2024-11-17 13:18 | Outpatient (BNV) | payer OTHER, SELFPAY | PROVIDERS: Admitting Provider Social Worker; Emergency Provider Emergency Medicine; Visit Provider Social Worker | DX: F25.0 Schizoaffective disorder, bipolar type (principal) | CPT/HCPCS: 90792; 99231; 99232 ==

== ENCOUNTER 2024-12-01 22:15 | Inpatient (IN) | payer OTHER, SELFPAY ==
--- OUTSIDE RECORDS SUMMARY | 2023-07-31 06:50 | XMS_ITS ---
Author Organization [facility] Address [address] [place] [address] Care Team Providers Care Planer Feeder Name Role Phone Neftaly NIXON, Angelo Primary Care Provider Amilcar Cheema Unavailable [phone] REASON FOR VISIT hx colon ca,screening,hx polyps Problems Problem Type SNOMED Code ICD Code Onset Dates Problem Status W/U Status Risk Notes Problem History of malignant neoplasm of colon (062436419) Personal history of colon cancer (Z85.038) Active confirmed Problem History of gastrointestinal tract bypass (619477964) Intestinal bypass and anastomosis status (Z98.0) Active confirmed Problem Diverticular disease of colon (518140370) Diverticulosis of large intestine without perforation or abscess without bleeding (K57.30) Active confirmed Encounters Encounter Location Date Provider [place] [facility] [place] [address] [place] [phone] 07/31/2023 Amilcar Elder Encounter for scre ening colonoscopy Z12.11 ; Colon polyps K63.5 ; Personal history of colon cancer Z85.038 ; Intestinal bypass and anastomosis status Z98.0 ; Diverticulosis of large intestine without perforation or abscess without bleeding K57.30 and Other hemorrhoids K64.8 Assessments Encounter Date Diagnosis (ICD Code) Assessment Notes Treatment Notes Treatment Clinical Notes Section Notes 07/31/2023 Encounter for screening colonoscopy (ICD-10 - Z12.11) 07/31/2023 Colon polyps (ICD-10 - K63.5) 07/31/2023 Personal history of colon cancer (ICD-10 - Z85.038) 07/31/2023 Intestinal bypass and anastomosis status (ICD-10 - Z98.0) 07/31/2023 Diverticulosis of large intestine without perforation or abscess without bleeding (ICD-10 - K57.30) 07/31/2023 Other hemorrhoids (ICD-10 - K64.8) Plan Of Treatment No Information Progress Notes * OSCAR BEGUMDOB:1960 ([age] yo M)Acc No.[id number]:07/31/2023 COLON WITH MAC Patient: OSCAR HIGGINS Provider: Ruchi Elder MD :1960 A ge:63 Y S ex:Male Date:07/31/2023 Address:[address] [place], [place] [id number] Pcp:Angelo Higginbotham MD Subjective: * Chief Complaints: * 1 . Hx colon ca,screening,hx polyps. * Medical History: Objective: * Vitals: Assessment: * Assessment: 1. E ncounter for screening colonoscopy - Z12.11 (Primary) 2 . C olon polyps - K63.5 3 . P ersonal history of colon cancer - Z85.038 4 .?Intestinal bypass and anastomosis status - Z98.0 5 . D iverticulosis of large intestine without perforation or abscess without bleeding - K57.30 6 . O ther hemorrhoids - K64.8 Plan: * Treatment: * Procedure Codes: 4 5380 COLONOSCOPY AND BIOPSY, Modifiers: 33 * * The named appointment provid er may or may not be the originator of this progress note, and it is not deemed complete until electronically signed by the appointment provider. Sign off status: Pending * Provider: Ruchi Elder MD Date: 0 07/31/2023 Generated for Gabriela sen/Michel/Kyliesmitting on: 0 12/01/2024 10:50 PM EDT
--- OUTSIDE RECORDS SUMMARY | 2024-05-01 08:00 | XMS_ITS ---
Author Organization [facility] Address [address] [place] [address] Care Team Providers Care Employee Relations Director Name Role Phone Neftaly NIXON, Angelo Primary Care Provider Amilcar Cheema Unavailable [phone] REASON FOR VISIT esophgeal dysphgia,abn barium swallow Encounters Encounter Location Date Provider Diagnosis [facility] Out[facility] [address] [place], [place] [phone] 05/01/2024 Amilcar Elder Esophageal dysphag ia R13.19 [...] * OSCAR BEGUMDOB:1960 ([age] yo M)Acc No.[id number]:05/01/2024 EGD/MAC Patient: OSCAR HIGGINS Provider: Ruchi Elder MD :1960 A ge:64 Y S ex:Male Date:05/01/2024 Address:[address] [place], [place] [id number] Pcp:Angelo Higginbotham MD Subjective: * Chief Complaints: [...] 05/01/2024 Generated for Gabriela sen/Michel/Jaditting on: 0 12/01/2024 10:50 PM EDT
--- OUTSIDE RECORDS SUMMARY | 2024-06-04 11:02 | XMS_ITS ---
Author Organization Angelo Higginbotham MD Address [address] [place] [phone] Care Team Providers Care Digital Marketing Specialist Name Role Phone Neftaly Angelo Primary Care Provider REASON FOR VISIT left leg Encounters Encounter Location Date Provider Diagnosis Angelo Higginbotham MD [address] [place] [phone] 06/04/2024 Angelo Higginbotham Leg pain, left M79.605 Assessments Encounter Date Diagnosis (ICD Code) Assessment Notes Treatment Notes Treatment Clinical Notes Section Notes 06/04/2024 Leg pain, left (ICD-10 - M79.605) Plan Of Treatment Pending Test Test Name Order Date XR LOWER LEG LT 06/04/2024 Next Appt Details Provider Name:Angelo abel, 12/04/2024 10:00:00 AM, [address] [facility], Suite [facility], [place], [place], [phone], Provider Name:Angelo antonyr, 02/22/2025 07:00:00 AM, [address], [address], [place], [place], [phone], Provider Name:Angelo Gomez ier, 03/01/2025 01:00:00 PM, [address], [address], [place], [phone], Progress Notes * Yomi BEGUM WDOB:1960 (64 yo M)Acc No.[id number]:06/04/2024 Patient: Yomi HIGGINS :1960 A ge:64 Y S ex:Male Address:[address] [place] [address] Subjective: * Chief Complaints: * L eft leg * Medical History: * Surgical History: * Hospitalization/Major Diagno stic Procedure: * Medications: Objective: * Vitals: * Physical Examination: Assessment: * Assessment: 1. L eg pain, left - M79.605 Plan: * Treatment: * Procedure Codes: * true * Date: Generated for Gabriela sen/Michel/Ramónransmitting on: 0 12/01/2024 10:50 PM EDT
--- OUTSIDE RECORDS SUMMARY | 2024-06-30 06:29 | XMS_ITS ---
Author Organization Angelo Higginbotham MD Address [address] [facility] [address] [place] [phone] Care Team Providers Care Manager Office Services Name Role Phone NeftalyMilyn Primary Care Provider [phone] REASON FOR VISIT claim denied Encounters Encounter Location Date Provider Diagnosis Angelo Higginbotham MD [address] [place] [address] [address] [place] [phone] 06/30/2024 Angelo Higginbotham Plan Of Treatment Next Appt Details Provider Name:Angelo Gomez ier, 12/04/2024 10:00:00 AM, [address] [place] [address], [address], [phone], Provider Name:Angelo Gomez iemichelle, 02/22/2025 07:00:00 AM, [address] [place] [address], [address], [phone], Provider Name:Angelo abel, 03/01/2025 01:00:00 PM, [address], [address], [place], [place], [phone], Progress Notes * Yomi BEGUM WDOB:1960 (64 yo M)Acc No.[id number]:06/30/2024 Patient: Yomi HIGGINS :1960 A ge:64 Y S ex:Male Address:[address] [place] [phone] * true * Date: Generated for Gabriela sen/Michel/eTransmitting on: 0 12/01/2024 10:49 PM EDT
--- OUTSIDE RECORDS SUMMARY | 2024-08-24 10:00 | XMS_ITS ---
Author Organization Angelo Higginbotham MD Address [address] [facility] [address] [place] [phone] Care Team Providers Care Film And Video Editor Name Role Phone Angelo Higginbotham Primary Care Provider [phone] Allergies Allergen (clinical drug ingredient) Drug/Non Drug Allergy documented on EMR Reaction Allergy Type Onset Date Status Haldol seizure Drug Allergy Active REASON FOR VISIT 6 month Encounters Encounter Location Date Provider Diagnosis Angelo Higginbotham MD [address] [facility] [address] [place] [phone] 08/24/2024 Angelo Higginbotham Plan Of Treatment Next Appt Details Provider Name:Angelo Gomez iemichelle, 12/04/2024 10:00:00 AM, [address] [place] [address], [address], [phone], Provider Name:Angelo abel, 02/22/2025 07:00:00 AM, [address] [place] [address], [address], [phone], Provider Name:Angelo Gomez ier, 03/01/2025 01:00:00 PM, [address], [address], [place], [phone], Progress Notes * Yomi BEGUM WDOB:1960 (64 yo M)Acc No.[id number]:08/24/2024 Progress Notes Patient: Yomi HIGGINS Provider: Chris Higginbotham MD :1960 A ge:64 Y S ex:Male Date:08/24/2024 Address:[address] [place] [address], [place]ina [id number] Subjective: * Chief Complaints: * 1 . [...] 2 years; colonoscopy booked for 04/22/19 w/Dr. Eldre; 04/22/[address] Elder - repeat [...] Higginbotham MD Date: 0 08/24/2024 Generated for Gabriela sen/Michel/Jaditting on: 0 12/01/2024 10:49 PM EDT History and Physical Notes * HPI (History of Present Illness) Category Sub-Category Detail Notes Category Not es Symptom(s) patient is a 64 yo male here for 6 month followup visit
--- OUTSIDE RECORDS SUMMARY | 2024-09-17 06:00 | XMS_ITS ---
Author Organization Angelo Higginbotham MD Address [address] [place] [phone] Care Team Providers Care Lamination Inspector Name Role Phone NeftalyMilyn Primary Care Provider Allergies Allergen (clinical drug ingredient) Drug/Non Drug Allergy documented on EMR Reaction Allergy Type Onset Date Status Haldol seizure Drug Allergy Active REASON FOR VISIT 6 mo c/o left leg edema, Accompanied by family independence case manager Medications Medication SIG (Take, Route, Frequency, Duration) Notes Start Date End Date Status ZyPREXA 10 MG 3 tablet Orally Once a day Active Senna 8.6 MG 1 tablets at bedtime as needed Orally Once a day for 30 days 10/24/2015 Not-Taking Aspirin 325 MG 1 tablet Orally Once a day Not-Taking Amantadine HCl 100 MG 1 capsule Orally T wice a day for 30 day(s) Not-Taking Cogentin Active D3-1000 25 MCG (1000 UT) TAKE 1 CAPSULE BY MOUTH ONCE DAILY for 90 Active [place] Carbonate 150 MG 3 capsule Orally BID Not-Taking traZODone HCl 100 MG 1 tablet at bedtime as needed Orally Once a day Not-Taking Ibuprofen 800 MG 1 tablet with food o r milk as needed Orally Three times a day for 10 days 12/04/2018 Not-Taking Vistaril 25 MG 1 capsule as needed Orally every 8 hrs Not-Taking Docusate Sodium 100 mg TAKE 1 CAPSULE BY MOUTH two (2) times a day NEEDED for 90 Active Vitamin D3 25 MCG (1000 UT) 1 tablet Orally Once a day Active Metoprolol Tartrate 25 mg TAKE 1 TABLET BY MOUTH two (2) times a day for 30 Active Finasteride 5 mg TAKE 1 TABLET BY TOMÁS TH ONCE DAILY for 90 Active Omeprazole 20 mg TAKE 1 CAPSULE BY MO UTH ONCE DAILY 30 MINUTES BEFORE BREAKFAST for 90 Active Furosemide 20 mg TAKE 1 TABLET BY TOMÁS TH ONCE DAILY Active Benztropine Mesylate 1 MG 1 tablet at be dtime Orally Once a day prn Active Thorazine 25mg tid Active PriLOSEC OTC 20 MG 1 tablet 30 minutes before morning meal Orally Once a day Active ZyPREXA 10 MG 3 tablet Orally Once a day Active Depakote ER 250 MG 250mg QAM Orally Onc e a day Active Depakote ER 500 MG 2 tabs Orally hs Active Vital Signs Blood pressure systolic 104 mm Hg 09/18/19 25 Blood pressure diastolic 64 mm Hg 025 Height 68 in 09/17/2024 Weight 209 lbs 09/17/2024 BMI 31.77 kg/m2 09/17/2024 Encounters Encounter Location Date Provider Diagnosis Angelo Higginbotham MD [address] [place] [phone] 09/17/2024 Angelo Higginbotham Dependent edema R60.9 Assessments Encounter Date Diagnosis (ICD Code) Assessment Notes Treatment Notes Treatment Clinical Notes Section Notes 09/17/2024 Dependent edema (ICD-10 - R60.9) get more active and continue current regiment Plan Of Treatment Medication Medication Name Sig Start Date Stop Date Notes Furosemide 20 mg TAKE 1 TABLET BY MOUTH ONCE DAILY Treatment Notes Assessment Notes Dependent edema get more active and continue current regiment Next Appt Details Provider Name:Angelo abel, 12/04/2024 10:00:00 AM, [address], [address], [place], [place], [phone], Provider Name:Angelo Gomez ier, 02/22/2025 07:00:00 AM, [address], [address], [place], [place], [phone], Provider Name:Angelo Gomez ier, 03/01/2025 01:00:00 PM, [address], [address], [place], [place], [phone], Progress Notes * Yomi BEGUM WDOB:1960 (64 yo M)Acc No.[id number]:09/17/2024 Progress Notes Patient: Yomi HIGGINS Provider: Chris Higginbotham MD :1960 A ge:64 Y S ex:Male Date:09/17/2024 Address:[address] [place], [place] [phone] Subjective: * Chief Complaints: * 6 mo c/o left leg edemaAccompanied by family independence case manager * HPI: S ymptom(s): patient is a 64 yo male here for 6 month follow up visit/ having swelling of leg for years./ goes away overnight. * ROS: G eneral/Constitutional: Denies C hills. D enies F atigue. D enies F ever. D enies H eadache. E NT: Denies S ore throat. R espiratory: Denies C ough. D enies S hortness of breath at rest. D enies S hortness of breath with exertion. G astrointestinal: Denies D iarrhea. D enies N ausea. * Medical History: * Surgical History: * Hospitalization/Major Diagno stic Procedure: * Medications: T akingCogentin ZyPREXA 10 MG Tablet 3 tablet Orally [...] Tablet 3 tablet Orally Once a day Vitamin D3 25 MCG (1000 UT) Tablet 1 tablet Orally Once a day Metoprolol Tartrate 25 mg Tablet TAKE 1 TABLET BY MOUTH two (2) times a day Finasteride 5 mg Tablet TAKE 1 TABLET BY MOUTH ONCE DAILY Omeprazole 20 mg Capsule Delayed Release TAKE 1 CAPSULE BY MOUTH ONCE DAILY 30 MINUTES BEFORE BREAKFAST Docusate Sodium 100 mg Capsule TAKE 1 CAPSULE BY MOUTH two (2) times a day NEEDED D3-1000 25 MCG (1000 UT) Capsule TAKE 1 CAPSULE BY MOUTH ONCE DAILY Furosemide 20 mg Tablet TAKE 1 TABLET BY MOUTH ONCE DAILY Taking Cogentin Taking ZyPREXA 10 MG Tablet [...] 3 tablet Orally Once a day Taking Vitamin D3 25 MCG (1000 UT) Tablet 1 tablet Orally Once a day Taking Metoprolol Tartrate 25 mg Tablet TAKE 1 TABLET BY MOUTH two (2) times a day Taking Finasteride 5 mg Tablet TAKE 1 TABLET BY MOUTH ONCE DAILY Taking Omeprazole 20 mg Capsule Delayed Release TAKE 1 CAPSULE BY MOUTH ONCE DAILY 30 MINUTES BEFORE BREAKFAST Taking Docusate Sodium 100 mg Capsule TAKE 1 CAPSULE BY MOUTH two (2) times a day NEEDED Taking D3-1000 25 MCG (1000 UT) Capsule TAKE 1 CAPSULE BY MOUTH ONCE DAILY Taking Furosemide 20 mg Tablet TAKE 1 TABLET BY MOUTH ONCE DAILY Not-Taking/PRNLithium Carbonate 150 MG Capsule 3 capsule [...] List reviewed and reconciled with the patientNot-Taking/PRN [place] Carbonate 150 MG Capsule 3 capsule Orally [...] reviewed and reconciled with the patient * Allergies: H aldol: seizureyes[Allergies Verified] Objective: * Vitals: H t: 68, Wt: 209, BMI:31.77, BP:104/64, Wt-k.8. * Examination: G eneral Examination: GENERAL APPEARANCE: w ell developed, well nourished. HEAD: n ormocephalic. SKIN: g ood turgor. HEART: r egular rate and rhythm, no murmurs, rubs, gallops.? LUNGS: n o wheezes, rales, rhonchi, good air movement, clear to auscultation bilaterally. ABDOMEN: s oft, nontender, nondistended. EXTREMITIES: 1 + pitting edema lower extremities has soft non tender calfs. Assessment: * Assessment: 1. D ependent edema - R60.9 (Primary) Plan: * Treatment: * Procedure Codes: * * Sign off status: Completed true * Provider: Chris Higginbotham MD Date: 0 09/17/2024 Generated for Gabriela sen/Michel/Jaditting on: 0 12/01/2024 10:50 PM EDT History and Physical Notes * HPI (History of Present Illness) Category Sub-Category Detail Notes Category Not es Symptom(s) patient is a 64 yo male here for 6 month follow up visit/ having swelling of leg for years./ goes away overnight Examination Category Sub-Category Detail Notes Category Not es General Examination GENERAL APPEARANCE: well developed , well nourished HEAD: normocephalic HEART: regular rate and rhy thm, no murmurs, rubs, gallops LUNGS: no wheezes, rales, r honchi, good air movement, clear to auscultation bilaterally ABDOMEN: soft, nontender, non distended SKIN: good turgor EXTREMITIES: 1+ pitting edema low er extremities has soft non tender calfs
--- OUTSIDE RECORDS SUMMARY | 2024-09-17 06:15 | XMS_ITS ---
Author Organization Angelo Higginbotham MD Address [address] [facility] [address] [place] [phone] Care Team Providers Care Drop Forge Operator Name Role Phone EvelinAngelo lucas Primary Care Provider REASON FOR VISIT out of network with his ins Encounters Encounter Location Date Provider Diagnosis Angelo Higginbotham MD [address] [place] [address] [address] [place] [phone] 09/17/2024 Angelo Higginbotham Plan Of Treatment Next Appt Details Provider Name:Angelo Gomez ier, 12/04/2024 10:00:00 AM, [address] [place] [address], [address], [phone], Provider Name:Angelo Gomez ier, 02/22/2025 07:00:00 AM, [address] [place] [address], [address], [phone], Provider Name:Angelo Gomez ier, 03/01/2025 01:00:00 PM, [address], [address], [place], [place], [phone], Progress Notes * Yomi BEGUM WDOB:1960 (64 yo M)Acc No.[id number]:09/17/2024 Patient: Yomi HIGGINS :1960 A ge:64 Y S ex:Male Address:[address] [place] [id number] * true * Date: Generated for Gabriela sen/Michel/eTransmitting on: 0 12/01/2024 10:49 PM EDT
--- NOTE | 2024-12-01 | ECG_ITS ---
Test Reason : SOB Blood Pressure : */* mmHG Vent. Rate : 87 BPM Atrial Rate : 87 BPM P-R Int : 160 ms QRS Dur : 150 ms QT Int : 404 ms P-R-T Axes : 32 -25 12 degrees QTcB Int : 486 ms Normal sinus rhythm Right bundle branch block Cannot rule out Inferior infarct (cited on or before 17-Dec-2017) Abnormal ECG When compared with ECG of 16-Nov-2024 15:30, No significant change was found Referred By: Generic ED Physician Electronically Signed By: JOANNA CLARK
--- NOTE | ~2024-12-01 | US_ITS ---
EXAMINATION: US KIDNEY BILATERAL HISTORY: Flank pain, history of renal cell carcinoma TECHNIQUE: Real-time grayscale ultrasound imaging of the kidneys was performed and images were reviewed. COMPARISON: Comparison is made with the prior examination dated 01/26/2022. FINDINGS: Right kidney: The right kidney measures 11.4 x 6.9 x 6.4 cm. Renal parenchymal echotexture and thickness are normal. There has been an interval enlargement of the previously seen echogenic mass in the midportion of the kidney which now measures 13 x 14 x 15 mm (previously 7 x 7 x 7 mm). There is no hydronephrosis or renal calculi. Left Kidney: The left kidney measures 11.0 x 4.9 x 5.5 cm. Renal parenchymal echotexture and thickness are normal. There are no masses. There is no hydronephrosis or renal calculi. US/US renal BI IMPRESSION: Enlarging mass in the interpolar region of the right kidney. Given the patient's history of prior renal cell carcinoma, renal protocol CT is recommended. Findings were sent to Pau Springer NP by secure text message on 12/14/2024 at 2:37 PM. Electronically signed by: Amilcar Esquivel MD 12/14/2024 02:38 PM EDT
--- NOTE | ~2024-12-01 | XR_ITS ---
CLINICAL HISTORY: sob 1 view chest x-ray Comparison: None provided Findings: Low lung volumes. Bibasilar atelectatic changes. Normal heart size and central pulmonary vascularity. No large pleural effusion. No pneumothorax. No acute soft tissue abnormality. Visualized bony structures are unremarkable. Impression: 1. Low lung volumes with bibasilar atelectatic changes otherwise no acute cardiopulmonary abnormality identified. This document has been electronically signed by: Ruddy Luong MD on 12/02/2024 00:59:51
--- NOTE | ~2024-12-01 | XR_ITS ---
EXAMINATION: XR ABDOMEN KUB CLINICAL INDICATION: constipation COMPARISON: Correlated to CT abdomen pelvis dated August 17, 2022. TECHNIQUE: AP view of the abdomen. FINDINGS: Patient's large body habitus. Abundant stool within nondilated large intestine. No air-fluid levels. Hepatic colonic flexure beneath the right hemidiaphragm. Status post IVC filter placement overlapping the L3 and L4 vertebral bodies. Multilevel lumbar spondylosis. There is a stent overlapping the lesser trochanter of the left femur. XR/XR KUB IMPRESSION: Abundant stool without intestinal obstruction pattern. Electronically signed by: Mani Hay MD 12/11/2024 02:18 PM EDT
--- NOTE | ~2024-12-01 | CT_ITS ---
EXAMINATION: CT ABDOMEN AND PELVIS WITHOUT AND WITH CONTRAST CLINICAL INFORMATION: Renal mass COMPARISON: None available. TECHNIQUE: Multidetector volumetric imaging was performed of the abdomen and pelvis before and after the IV administration of 85 mL of Omnipaque 300 intravenous contrast. Sagittal and coronal reformatted images were obtained on the technologist's workstation. This CT examination was performed using dose optimization techniques as appropriate, variously including the following: *Automated exposure control *Adjustment of mA and/or kV according to patient size (this includes techniques or standardized protocols for targeted exams where dose is matched to indication/reason for exam; i.e. extremities or head) *Use of iterative reconstruction technique FINDINGS: LUNG BASES: There is minimal dependent atelectasis. LIVER, GALLBLADDER, AND BILIARY TREE: Liver demonstrates decreased attenuation. The gallbladder is unremarkable with no evidence of radiopaque gallstones, gallbladder wall thickening, or obvious pericholecystic inflammatory changes. PANCREAS: Unremarkable SPLEEN: Unremarkable ADRENAL GLANDS: Unremarkable KIDNEYS AND URETERS: There is a lesion in the lateral aspect of the mid right kidney that measures 11 x 17 mm (transverse by CC). Before contrast it measured 37 Hounsfield units and 113 postcontrast. There is a lesion in the medial mid right kidney measuring 15 x 19 mm (transverse by AP). Precontrast, it measured 39 Hounsfield units and after contrast measured 85 Hounsfield units. The lesion in the medial kidney had undergone cryoablation on the prior examination and was ill-defined measuring approximately 10 x 16 mm (transverse by AP). There is a small simple cyst in the lower pole left kidney. GASTROINTESTINAL TRACT: There is an anastomosis in the distal end of the transverse colon. There is moderate stool throughout the transverse colon. The visualized portions of bowel appear to be unremarkable otherwise, including the appendix. ABDOMINAL WALL: Small umbilical hernia contains fat LYMPH NODES: Normal VASCULAR: There is an IVC filter just caudal to the renal veins. Mild chronic calcification is present. PELVIC VISCERA: Unremarkable OSSEOUS STRUCTURES: Degenerative changes are mild in the imaged portions of the spine. CT/CT renal wo/w IV con IMPRESSION: There appear to be 2 enhancing masses in the equatorial region of the right kidney. Both are concerning for renal cell carcinoma. There is a lesion laterally, and there is a lesion medially that was previously treated with cryoablation. Hepatic steatosis. Fleischner guidelines were followed. Electronically signed by: Alton Kim MD 12/14/2024 04:33 PM EDT RP
[2024-12-01 22:23] VITALS: BP 125/87; PULSE 75; O2SAT 97
[2024-12-01 22:31] VITALS: BP 115/77; BP 119/68; PULSE 87; PULSE 89; RESP 16; RESP 18; TEMP 36.7; O2SAT 95; O2SAT 96; BMI 34.1
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
--- OUTSIDE RECORDS SUMMARY | 2024-12-01 22:49 | XMS_ITS ---
Author Organization [facility] Address [address] [place] [address] Care Team Providers Care Glove Boarder Name Role Phone EvelinAngelo lucas Primary Care Provider [phone] Active Problems * This document contains information received from the source organization and may not represent a complete record from that organization. Problem Noted Date Diagnosed Date Peripheral neuropathy 07/03/2018 Paraneoplastic neuropathy, non-anti-Hu 8 Assessment & Plan (02/26/2018 2:23 PM EST): Discharge paperwork, hospital course, and neurology notes were obtained from [facility]. The patient presented with confusion, delirium [...] evaluate for a paraneoplastic syndrome affecting the MICA BUILDER. 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 Treatment of 5 days of IVIG was recommended and completed. According to the documentation, which was informed by consultation with neurology at [place], if the condition does improve, it could [...] unlikely paraneoplastic syndrome as previously treated at [facility]. Psychiatry was consulted on the patient due [...] reconciliation at some point after he left [facility] last month. Since that time the patient has been having changes in the psych medications. After speaking to the his intermediate nurse, the nurse stated to me that [...] (started 02/07 with up-titration to current dose), [place] 450 mg Q12H, Depakote 500 mg BID, [...] Lifetime Dose Automatic Entry Manual Entr y Fluoro Time 11.1 minutes 0 minutes 11.1 minutes Radiation - mGy 104 mGy 0 mGy 104 mGy Dose Area Product 27.8 Gy-cm2 0 Gy-cm2 27.8 Gy-cm 2 Resolved Problems Problem Noted Date Diagnosed Date [...] pseudoaneurysm. The patient was recently admitted to [facility] from November to January 22 for altered mental status thought to represent metabolic encephalopathy and during that admission he had an ICU stay where a left SFA line was placed. He was taken to the OR on 11/1 for the evacuation of the hematoma and placement of a viabahn stent. The patient was discharged to [facility] on 01/22. Since arriving there he was continued to be altered and frequently hit or irritate the left femoral incision site. Prior to admission nursing staff noticed that the groin was red and swollen, therefore he was brought to [facility]. On the day of admission, 01/27/18, he [...] (01/27/2018): Added automatically from request for surgery [id number] Assessment & Plan (02/12/2018 2:24 PM EST): [...]
--- OUTSIDE RECORDS SUMMARY | 2024-12-01 22:49 | XMS_ITS | Clinical Summary ---
Author Organization [facility] Address [address] [place] [address] Care Team Providers Care Apple Solutions Consultant Name Role Phone Angelo Higginbotham Primary Care Provider [phone] Allergies No known active allergies Medications * [...] 12 hours as needed (severe agitation). 02/29/20 18 Active docusate sodium (COLACE) 100 mg capsule [...] course, and neurology notes were obtained from [facility]. 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 Treatment of 5 days of IVIG was recommended and completed. According to the documentation, which was informed by consultation with neurology at [place], if the condition does improve, it could [...] reconciliation at some point after he left [facility] last month. Since that time the patient has been having changes in the psych medications. After speaking to the his fdc nurse, the nurse stated to me that [...] (started 02/07 with up-titration to current dose), [place] 450 mg Q12H, Depakote 500 mg BID, [...] pseudoaneurysm. The patient was recently admitted to [facility] from November to January 22 for altered mental status thought to represent metabolic encephalopathy and during that admission he had an ICU stay where a left SFA line was placed. He was taken to the OR on 01/16 for the evacuation of the hematoma and placement of a viabahn stent. The patient was discharged to [facility] on 01/22. Since arriving there he was continued to be altered and frequently hit or irritate the left femoral incision site. Prior to admission nursing staff noticed that the groin was red and swollen, therefore he was brought to [facility]. On the day of admission, [...] (01/27/2018): Added automatically from request for surgery [id number] Assessment & Plan (02/12/2018 2:24 PM EST): [...] 12/05/2022 12/05/2021, 11/16, 02/14/2017, Additional history exists Alcohol/Substance Use Screening 03/18/2024 Depression Screening and Follow-Up 03/18/2024 Social Drivers of Health Annual Screening 03/18/2024 Colon Cancer Screening 11/01/2024 Colonoscopy 11/01/2024 11/01/2014, 11/01/2014 COVID-19 Vaccine ( season) 2024 01/12/2022, 01/12/2022, 01/11/2021, Additional history exists Influenza Vaccine (#1) 2024 , 12/28/2021, 11/29/2020, [...] this topic Medical Devices Implanted Type Area Ledger Poster Device Identifier Shelf Expiration Date Model / Serial / Lot Filter Vena Cava Femoral With Navalign Delivery [id number] Celec - S0 - [id number] Implanted:Qty: 1 on 01/28/2018 by Melanie Bryan MD at [facility] IVC Filter Right: Vein [employer] [id number] 11/25/2020 [id number] / 0 / [id number] Procedures * Due to [place] Home[employer] law, this organization might not be sharing negative HIV tests. Procedure Name Priority Date/Time Associated Diagnosis Comments BASIC METABOLIC PANEL Timed 02/26/2018 7:05 AM EST from Last 3 Months or Most Recently Relevant to Health Maintenance Results * Due to [place] HomeSav law, this organization might not be sharing negative HIV tests. * (ABNORMAL) Basic Metabolic Panel (02/26/2018 7:05 AM EST) NA 142 135 - 145 mmol/L 02/26/2018 8:17 AM EST [facility] K 4.4 3.5 - 5.3 mmol/L 02/26/2018 8:17 AM EST [facility] Cl 110 97 - 110 mmol/L 02/26/2018 8:17 AM EST [facility] CO2 29 24 - 32 mmol/L 02/26/2018 8:17 AM EST [facility] BUN 10 7 - 23 mg/dL 02/26/2018 8:17 AM EST [facility] Creatinine 0.57(L) 0.60 - 1.30 mg/dL 02/26/2018 8:17 AM EST [facility] Glucose 109(H) 70 - 99 mg/dL 02/26/2018 8:17 AM EST [facility] Calcium 9.2 8.7 - 10.7 mg/dL 02/26/2018 8:17 AM EST [facility] Anion Gap 3(L) 5 - 15 02/26/2018 8:17 AM EST [facility] eGFR Non- >90 >=90 mL/min/BSA 02/26/2018 8:17 AM EST [facility] Comment: Units = [...] MD LAB BLOOD ORDERABLES Final Resu lt [facility] [address] [place] [address], from Last 3 Months or Most Recently Relevant to Health Maintenance Insurance [facility] Advance Directives Documents on File Type Date Recorded Patient Box Printer Expl anation Health Care Proxy 01/27/2018 10/13/2014 * Full Code (Latest Code Status on File) Date Activated Date Inactivated Comments 01/27/2018 5:09 PM 02/28/2018 6:58 PM * Full Code Date Activated Date Inactivated Comments 01/27/2018 2:07 PM 01/27/2018 5:09 PM Healthcare Agents on File Name Relationship Healthcare Agent Relationshi p Communication Malissa Forman Sister Healthcare Proxy - Primary Care Teams Apple Solutions Consultant Relationship Specialty Start Date End Date Angelo Higginbotham [address] [place] [address] [place] [address] PCP - General Internal Medicine 05/21/18
--- NOTE | 2024-12-01 22:50 | ED.GENADULT ---
HPI - General Adult General Chief complaint: Dyspnea Stated complaint: SOB Time Seen by Provider: 12/01/24 22:46 Source: patient Mode of arrival: ambulatory Limitations: no limitations History of Present Illness ED Provider: Dr. Portillo HPI narrative: This is a 64-year-old male history of schizophrenia, hallucination, auditory hallucination, delusions presented hospital today for evaluation of shortness of breath. Patient stated that he is feeling short of breath. History is extremely limited due to patient's and behavior patient is laughing at internal stimuli and pointing at the monitor. He does not appear to be tachypneic on exam does not appear to be in respiratory distress. Related Data Home Medications ?Medication ?Instructions ?Recorded ?Confirmed docusate sodium 100 mg capsule 100 mg PO BID PRN Constipation 07/30/23 12/01/24 olanzapine 10 mg tablet 10 mg PO DAILY 12/02/24 12/02/24 Previous Rx's ?Medication ?Instructions ?Recorded omeprazole 20 mg capsule,delayed 20 mg PO DAILY@0630 #30 caps 06/01/20 release chlorpromazine 25 mg tablet 25 mg PO TID #90 tabs 11/24/24 cholecalciferol (vitamin D3) 25 25 mcg PO DAILY #30 tabs 11/24/24 mcg (1,000 unit) tablet divalproex 250 mg tablet,delayed 250 mg PO DAILY #30 tabs 11/24/24 release divalproex 500 mg tablet,extended 1,000 mg (2 x 500 mg) PO BEDTIME 11/24/24 release 24 hr #30 tabs finasteride 5 mg tablet 5 mg PO DAILY #30 tabs 11/24/24 metformin 500 mg tablet,extended 500 mg PO DAILY@1700 #30 tabs 11/24/24 release 24 hr metoprolol tartrate 25 mg tablet 25 mg PO BID #60 tabs 11/24/24 Allergies Allergy/AdvReac Type Severity Reaction Status Date / Time haloperidol (From HALDOL) Allergy Unknown UNKNOWN Verified 12/01/24 22:33 adhesive tape AdvReac Unknown Rash Verified 12/01/24 22:33 Helidac Allergy Unknown seizure Uncoded 12/01/24 22:33 and stiffness Review of Systems Review of Systems: Pertinent review of systems as mentioned in HPI. All other system otherwise negative. [facility] Past Medical History [facility] Narrative: Medical history as mentioned in HPI Medical History (Updated 12/03/24 @ 12:09 by Vikas Jessica CNP) Feeding by G-tube Bilateral cataracts Schizoaffective disorder, bipolar type Syncope Seizure Paraneoplastic syndrome Chronic headaches Colon cancer Hyperammonemia Esophageal stricture Encephalopathy Renal cell carcinoma Anemia Hernia Depression HTN (hypertension) Schizophrenia GERD (gastroesophageal reflux disease) Surgical History Hx of cataract extraction History of esophagogastroduodenoscopy (EGD) H/O colonoscopy History of left inguinal hernia repair H/O hemicolectomy Social History Social History Household Members: None Housing: Apartment Do you presently have visiting nurse or other home services: Yes (delivers meds twice a day. Attends a Day Program.) Unable to assess alcohol history related to: Unable to respond and Unknown Alcohol intake: never Comment: incoherent Patient Tobacco Use Status: Never used Tobacco Smoked in Last 30 Days: No e-Cigarette/Vaping Use: Never Used Use of substances other than those prescribed or required for medical reasons: No Currently Displaying Signs/Symptoms of Drug Intoxication Withdrawal: No Have you been hit, kicked, punched, or otherwise hurt by someone within the past year? If so, by whom?: No (unknown. His response was incomprensible.) Do you feel safe in your current relationship?: No Current Relationship Is there a partner from a previous relationship who is making you feel unsafe now?: No Are you made to feel afraid or neglected: No Advance Directives: No Advance Directives Information Provided: No Do you have thoughts of harming others: None Do you have a plan to hurt others: No Plan Recently lost weight without trying: No How much weight loss: Not applicable Eating poorly because of decreased appetite: No Nutrition screen score: 0 Nutrition Risks: No Nutritional Risk Poor oral hygiene: Yes (almost toothless) service: No Sexual orientation: Did not discuss Physical Exam ED Exam Exam: General: Appears to be responding to internal stimuli on exam Head: Normacephalic, atraumatic ENT: oral mucosa moist, neck supple, no tracheal deviation Cardiovascular: regular rate, regular rhythm, no murmurs, rubbing, gallops Respiratory: CTAB, no wheeze, rales, rhonchi Gastrointestinal: Soft, non distended, non tender, non guarding Extremities: No limb pain or swelling, no calf tenderness Neurological: Awake and alert, no facial droop noted Skin: Warm and dry Psychiatric: Appears to be having hallucinations. Vital Signs: Vital Signs - 24 hr 12/01/24 22:31 12/01/24 22:31 12/02/24 01:28 Temperature 98.1 F 98.1 F 97 F Pulse Rate 87 89 82 Respiratory Rate 16 18 14 Blood Pressure 115/77 119/68 105/64 Pulse Oximetry 95 96 95 Oxygen Delivery Method Room Air Room Air Room Air 12/02/24 03:17 12/02/24 04:05 12/02/24 06:07 Temperature 97.6 F 97 F Pulse Rate 89 84 87 Respiratory Rate 14 13 16 Blood Pressure 129/86 118/79 130/86 Pulse Oximetry 96 97 94 Oxygen Delivery Method Room Air Room Air Room Air 12/02/24 09:45 Temperature 97.2 F Pulse Rate 83 Respiratory Rate 20 Blood Pressure 116/75 Pulse Oximetry 93 Oxygen Delivery Method Room Air BMI result Body Mass Index 34.1 Course Course Course Narrative: 12/02/2024 0805 Sheryl Guzman PA-C ---> Observation continues. Patient continues to be a geriatric bed search. Patient was acutely agitated this morning, responding to internal stimuli. Ordered Zyprexa ODT. 12/02/2024 1245 Sheryl Guzman PA-C ---> Patient's VBG showed evidence of possible metabolic alkalosis but overall, not concerning given patient's clinical presentation. No other evidence of metabolic abnormality on CMP. Medications Administered Generic Name Dose Route Start Last Admin Trade Name Cindi PRN Reason Stop Dose Admin Acetaminophen 650 mg 12/02/24 12:46 12/03/24 08:38 Acetaminophen 325 Mg Tablet PO 650 mg Q6H PRN Administration Headache/Pain, Scale 1-10 Chlorpromazine HCl 25 mg 12/02/24 09:00 12/03/24 17:50 Chlorpromazine Hcl 25 Mg Tablet PO 25 mg TID DEVONTE Administration Divalproex Sodium 250 mg 12/02/24 09:00 12/03/24 08:38 Divalproex Sodium 250 Mg Tablet.Dr PO 250 mg DAILY DEVONTE Administration Divalproex Sodium 1,000 mg 12/02/24 21:00 12/02/24 21:40 Divalproex Sodium Er 500 Mg Tab.Er.24h PO 1,000 mg BEDTIME DEVONTE Administration Finasteride 5 mg 12/02/24 09:00 12/03/24 08:38 Finasteride 5 Mg Tablet PO 5 mg DAILY DEVONTE Administration Metoprolol Tartrate 25 mg 12/02/24 09:00 12/03/24 08:38 Metoprolol Tartrate 25 Mg Tablet PO 25 mg BID DEVONTE Administration Protocol Olanzapine 5 mg 12/02/24 12:46 12/03/24 02:07 Olanzapine 5 Mg Tablet PO 5 mg TID PRN Administration agitation Olanzapine 10 mg 12/03/24 09:00 12/03/24 08:38 Olanzapine 10 Mg Tablet PO 10 mg DAILY DEVONTE Administration Trazodone HCl 50 mg 12/02/24 12:46 12/03/24 02:07 Trazodone Hcl 50 Mg Tablet PO 50 mg BEDTIME MRX1 PRN Administration Insomnia Vitamin D 25 mcg 12/02/24 09:00 12/03/24 08:38 Cholecalciferol (Vitamin D3) 25 Mcg Tablet PO 25 mcg DAILY DEVONTE Administration Discontinued Medications Generic Name Dose Route Start Last Admin Trade Name Freq PRN Reason Stop Dose Admin Metformin HCl 500 mg 12/02/24 17:00 12/02/24 17:31 Metformin Hcl Er 500 Mg Tab.Er.24h PO 500 mg DAILY@1700 DEVONTE Administration Olanzapine 10 mg 12/01/24 23:11 12/01/24 23:14 Olanzapine Odt 10 Mg Tab.Rapdis TRANSLINGU 12/01/24 23:12 10 mg ONCE ONE Administration Olanzapine 10 mg 12/02/24 08:05 12/02/24 08:09 Olanzapine Odt 10 Mg Tab.Rapdis TRANSLINGU 12/02/24 08:06 10 mg ONCE ONE Administration Medical Decision Making Medical Decision Making MDM Narrative: This is a 64-year-old male presented hospital today for evaluation of shortness of breath. Patient is a extremely unreliable historian. We will pursue cardiac workup for the patient including chest x-ray. Patient's O2 saturation is 98% does not appear to be tachypneic or in respiratory distress at this time. We will continue to monitor the patient does time. Review patient's lab work he does have slight anemia at 12.2 no leukocytosis, patient's chemistry is unremarkable, patient troponins negative. Chest x-ray is unremarkable. Patient was yelling and screaming and talking to himself laterally. I did give his home dose of 10 mg Zyprexa. At this time patient is medically cleared from my standpoint. We will plan to obtain further assistance in recommendation for crisis team. Crisis team evaluation consult has in place and. Patient will be signed out to oncoming doctor pending crisis evaluation. Differential Diagnosis Differential Diagnoses: The differential diagnosis associated with the presentation includes Delusions, psychosis, pneumonia, ACS Consult Healthcare Provider Management of the patient was discussed with: Behavioral Health Provider Lab Data [facility] Lab Attestation statement: I reviewed the patient's lab results. 12/01/24 23:24 12/03/24 08:03 Labs: Lab Results 12/01/24 12/01/24 12/01/24 Range/Units 23:19 23:24 23:28 WBC 6.0 (4.8-10.8) X10*3/uL RBC 4.02 L (4.60-5.80) X10*6/uL Hgb 12.2 L (14.0-18.0) g/dl Hct 35.7 L (42.0-52.0) % MCV 88.8 (80.0-98.0) fL MCH 30.3 (27.0-33.0) pg MCHC 34.2 (31.0-36.0) g/dl RDW 15.2 (11.0-16.0) % Plt Count 168 (160-400) X10*3/uL MPV 8.9 L (9.4-12.4) fL Immature Gran % (Auto) 0.5 H (0.0-0.4) % Neut % (Auto) 45.5 (45-73) % Lymph % (Auto) 40.7 H (20-40) % Callaway % (Auto) 10.0 (2-11) % Eos % (Auto) 2.8 (0-4) % Baso % (Auto) 0.5 (0-2) % Lymph # (Auto) 2.4 (1.2-4.9) X10*3/uL Callaway # (Auto) 0.6 (0.1-1.2) X10*3/uL Eos # (Auto) 0.2 (0.0-0.4) X10*3/uL Baso # (Auto) 0.0 (0.0-0.2) X10*3/uL Abs Immat Gran (auto) 0.03 (0.00-0.03) X10*3/uL Absolute Neuts (auto) 2.7 (2.0-8.3) x10*3/uL Absolute Nucleated RBC 0.000 (0.0-0.012) X10*3/uL Nucleated RBC % (auto) 0.0 (0.0-0.2) /100WBC VBG pH 7.54 H (7.32-7.43) VBG pCO2 35 mmHg VBG pO2 60 mmHg VBG HCO3 30 H (22-26) mmol/L VBG O2 Saturation 87.0 % VBG Base Excess 7.9 mmol/L Sodium 145 (135-145) mmol/L Potassium 3.5 D (3.3-5.1) mmol/L Chloride 104 (96-108) mmol/L Carbon Dioxide 29 (22-29) mmol/L Anion Gap 16 (12-20) BUN 19 H (9-16) mg/dL Creatinine 1.24 (0.5-1.4) mg/dL Estim Creat Clear Calc 63.9 Estimated GFR 59 POC Glucose 145 H (60-115) mg/dL Random Glucose 142 H (60-115) mg/dL Calcium 9.3 (8.4-10.2) mg/dL Troponin I High Sens < 2.7 (<3.5-35.0) ng/L Urine Color Urine Appearance Urine pH (5.0-9.0) Ur Specific Randolph (1.005-1.025) Urine Protein (Neg-Trace) mg/dL Urine Glucose (UA) (Negative) mg/dL Urine Ketones (Negative) mg/dL Urine Blood (Negative) Urine Nitrite (Negative) Ur Leukocyte Esterase (Negative) Urine Opiates Screen (Not Detect) Ur Buprenorphine Scrn (Not Detect) ng/mL Ur Oxycodone Screen (Not Detect) ng/mL Urine Methadone Screen (Not Detect) ng/mL Urine Fentanyl Screen (Not Detect) Ur Barbiturates Screen (Not Detect) Ur Phencyclidine Scrn (Not Detect) Ur Amphetamines Screen (Not Detect) U Benzodiazepines Scrn (Not Detect) Urine Cocaine Screen (Not Detect) U Marijuana (THC) Screen (Not Detect) 12/02/24 Range/Units 11:56 WBC (4.8-10.8) X10*3/uL RBC (4.60-5.80) X10*6/uL Hgb (14.0-18.0) g/dl Hct (42.0-52.0) % MCV (80.0-98.0) fL MCH (27.0-33.0) pg MCHC (31.0-36.0) g/dl RDW (11.0-16.0) % Plt Count (160-400) X10*3/uL MPV (9.4-12.4) fL Immature Gran % (Auto) (0.0-0.4) % Neut % (Auto) (45-73) % Lymph % (Auto) (20-40) % Callaway % (Auto) (2-11) % Eos % (Auto) (0-4) % Baso % (Auto) (0-2) % Lymph # (Auto) (1.2-4.9) X10*3/uL Callaway # (Auto) (0.1-1.2) X10*3/uL Eos # (Auto) (0.0-0.4) X10*3/uL Baso # (Auto) (0.0-0.2) X10*3/uL Abs Immat Gran (auto) (0.00-0.03) X10*3/uL Absolute Neuts (auto) (2.0-8.3) x10*3/uL Absolute Nucleated RBC (0.0-0.012) X10*3/uL Nucleated RBC % (auto) (0.0-0.2) /100WBC VBG pH (7.32-7.43) VBG pCO2 mmHg VBG pO2 mmHg VBG HCO3 (22-26) mmol/L VBG O2 Saturation % VBG Base Excess mmol/L Sodium (135-145) mmol/L Potassium (3.3-5.1) mmol/L Chloride (96-108) mmol/L Carbon Dioxide (22-29) mmol/L Anion Gap (12-20) BUN (9-16) mg/dL Creatinine (0.5-1.4) mg/dL Estim Creat Clear Calc Estimated GFR POC Glucose (60-115) mg/dL Random Glucose (60-115) mg/dL Calcium (8.4-10.2) mg/dL Troponin I High Sens (<3.5-35.0) ng/L Urine Color Yellow Urine Appearance Clear Urine pH 7.5 (5.0-9.0) Ur Specific Randolph 1.010 (1.005-1.025) Urine Protein Negative (Neg-Trace) mg/dL Urine Glucose (UA) Negative (Negative) mg/dL Urine Ketones Negative (Negative) mg/dL Urine Blood Negative (Negative) Urine Nitrite Negative (Negative) Ur Leukocyte Esterase Negative (Negative) Urine Opiates Screen Not Detected (Not Detect) Ur Buprenorphine Scrn Not Detected (Not Detect) ng/mL Ur Oxycodone Screen Not Detected (Not Detect) ng/mL Urine Methadone Screen Not Detected (Not Detect) ng/mL Urine Fentanyl Screen Not Detected (Not Detect) Ur Barbiturates Screen Not Detected (Not Detect) Ur Phencyclidine Scrn Not Detected (Not Detect) Ur Amphetamines Screen Not Detected (Not Detect) U Benzodiazepines Scrn Not Detected (Not Detect) Urine Cocaine Screen Not Detected (Not Detect) U Marijuana (THC) Screen Not Detected (Not Detect) Independent Interpretation I performed an independent interpretation of an: EKG and Plain X-Ray Social Determinants Patient?s care significantly limited by Social Determinants of Health including: Unemployment Discharge Plan Discharge Clinical Impression: Schizoaffective disorder, bipolar type, Breathlessness Patient Disposition: Admitted As Inpatient Interventions: Admission Worksheet (ED) Last Done: 12/02/24 13:35 Discharge Date/Time: 12/02/24 14:14
--- OUTSIDE RECORDS SUMMARY | 2024-12-01 22:50 | XMS_ITS | Patient Health Record ---
Author Organization [facility] Address [address] [place] [address] Care Team Providers Care Commercial Hvac Technician Name Role Phone Angelo Higginbotham MD Primary Care Provider Amilcar Cheema Unavailable [phone] Allergies Allergen (clinical drug ingredient) Drug/Non Drug Allergy documented on EMR Reaction Allergy Type Onset Date Status Haldol Unknown Drug Allergy Active Reason For [...] Problem Status W/U Status Risk Notes Problem 285866134 Encounter for screening for malignant neoplasm of colon (Z12.11) Active confirmed Problem Diverticular disease of colon (750922503) Diverticulosis of large intestine without perforation or abscess without bleeding (K57.30) Active confirmed Problem History of gastrointestinal tract bypass (509321995) Intestinal bypass and anastomosis status (Z98.0) Active confirmed Problem 678210225991238 Preprocedural examination (Z01.818) Active confirmed Problem History of polyp of colon (situation) (353782282) History of colon polyps (Z86.010) Active confirmed Problem 729906397 Aspirin long-ter m use (Z79.82) Active confirmed Problem 497964988 History of colon cancer (Z85.038) Active confirmed Problem 11820822 Oropharyngeal dysphagia (R13.12) Active confirmed Problem History of malignant neoplasm of colon (041041916) Personal history of colon cancer (Z85.038) Active confirmed Problem 393397223 Hx of adenomatou s colonic polyps (Z86.010) Active confirmed Problem Barium swallow abnormal (868711812) Abnormal barium swallow (R93.3) Active confirmed Problem Esophageal dysphagia (51014230) Esophageal dysphagia (R13.19) Active confirmed Vital Signs Temperature 96.8 degrees Fahrenheit 03/20/2024 Blood pressure diastolic 00 mm Hg 03/20/2024 Height 67.5 in 03/20/2024 Blood pressure systolic 000 mm Hg 03/20/2024 Weight 206 lbs 03/20/2024 BMI 31.78 kg/m2 03/20/2024 Encounters Encounter Location Date Provider Diagnosis [facility] [address]patient [address] [place], [place] [id number] 05/01/2024 Amilcar Elder Esophageal dysphagia R13.19 ; Hiatal hernia K44.9 and Abn findings-GI tract R93.3 [facility] [address] [place] [phone] 03/20/2024 Amilcar Elder Esophageal dysphagia R13.19 and Abnormal barium swallow R93.3 [facility] [address] [place] [phone] 02/27/2024 Amilcar Elder Assessments Encounter Date Diagnosis [...] Insured Coverage Start Date Coverage End Date [facility] [address] Attn Claims [place] [id number] [employer] Self - patient is the insured Medical (General) History Medical History History ICD Code Schizophrenia Colon cancer-stage IIA-- gerardo gnosed in 01/2012--underwent a left colectomy with Dr. Jose in 02/2012-saw Dr. Carter in and she did not feel he needed any adjuvant Rx Denies [place],DM,CVA,Lung disease,renal dise ase GERD-EGD with dilation in [...] surgery-Dr. Meléndez o--07/2018 [facility]
[2024-12-01] MEDS: OLANZapine ODT 10 MG TAB.RAPDIS TRANSLINGU (23:14)
--- NOTE | 2024-12-01 23:14 | PC.NURSE ---
report from Neisha PACHECO. patient resting on stretcher yelling, laughing, and talking to self. medicated per order.
[2024-12-01 23:23] LABS: Glucose, Whole Blood 145 mg/dL (60-115)
[2024-12-01 23:29] LABS: Hematocrit 35.7 % (42.0-52.0); Hemoglobin 12.2 g/dl (14.0-18.0); Imm Gran Abs Auto 0.03 X10*3/uL (0.00-0.03); Imm Gran Pct Auto 0.5 % (0.0-0.4); Lymphocytes Absolute Auto 2.4 X10*3/uL (1.2-4.9); MANUAL DIFF FLAG NO; Mean Corpuscular HGB Conc 34.2 g/dl (31.0-36.0); Mean Corpuscular Hemoglobin 30.3 pg (27.0-33.0); Mean Corpuscular Volume 88.8 fL (80.0-98.0); NRBC Abs Auto 0.000 X10*3/uL (0.0-0.012); NRBC Pct Auto 0.0 /100WBC (0.0-0.2); Platelet Count 168 X10*3/uL (160-400); Red Blood Count 4.02 X10*6/uL (4.60-5.80); White Blood Count 6.0 X10*3/uL (4.8-10.8)
[2024-12-01 23:33] LABS: VBG HCO3 30 mmol/L (22-26); VBG O2 % Saturation 87.0 %
[2024-12-01 23:33] LABS: Venous Blood Gas Refer to POC result
[2024-12-01 23:44] LABS: Anion Gap 16 (12-20); Blood Urea Nitrogen 19 mg/dL (9-16); Calcium 9.3 mg/dL (8.4-10.2); Carbon Dioxide 29 mmol/L (22-29); Chloride 104 mmol/L (96-108); Creatinine Clr Calc Pharmacy 63.9; Estimated Glomerular Filt Rate 59; Potassium 3.5 mmol/L (3.3-5.1); Sodium 145 mmol/L (135-145)
[2024-12-01 23:52] LABS: Troponin-I High Sensitivity < 2.7 ng/L (<3.5-35.0)
[2024-12-02] VITALS (8 sets, daily range): BP systolic 102–148; BP diastolic 7–86; PULSE 79–95; RESP 13–20; TEMP 36.1–36.4; O2SAT 93–98
--- NOTE | 2024-12-02 03:00 | PC.NURSE ---
patient awake, alert and oriented x 3. speaking in full sentences. speech is clear at time and appropriate and other times it is unclear, rapid, and nonsensical. talking to himself and laughing. patient denies SI/HI. cooperative with care.
--- NOTE | 2024-12-02 03:16 | PC.NURSE ---
Patient seen by crisis team
--- NOTE | 2024-12-02 03:28 | MHC.EDTECH ---
Pt belongings in nataliya port closet, shelf 4. Belongings list done and in bag.
--- NOTE | 2024-12-02 04:42 | PC.NURSE ---
Resumed care of pt at 0300. Pt resting in bed, responding to internal stimuli and having intermit rapid verbal periods. Pt communicating needs with staff at this time, awaiting IPBS at this time
--- NOTE | 2024-12-02 06:30 | MHC.EDTECH ---
Assisted Pt to and from bathroom. Pt walked with steady gait and use of a walker. Needed to be redirected several times to get Pt to bathroom and back to bed. Vital signs taken, call cervantes within reach.
[2024-12-02] MEDS: OLANZapine ODT 10 MG TAB.RAPDIS TRANSLINGU (08:09)
--- NOTE | 2024-12-02 09:41 | PC.NURSE ---
report obtained from braxotn, patient alert to self only- presently having AH and VH, denies si/hi, pt is to be a carlos alberto psych search. rr equal/non labored, lungs diminished- per report pt ambulates with walker/assist- pt transferred from hospital bed to stretcher was oob with 2 person assist, call cervantes within reach, plan of care ongoing.
--- NOTE | 2024-12-02 12:03 | PC.NURSE ---
urine was obtained
[2024-12-02 12:11] LABS: Appearance Urine Clear; Glucose Urine UA Negative (Negative); PH 7.5 (5.0-9.0); Specific Gravity - Urine 1.010 (1.005-1.025)
[2024-12-02 12:22] LABS: Cannabinoid Screen Urine Not Detected (Not Detect)
[2024-12-02 13:15] LABS: Venous Blood Gas Refer to POC result
[2024-12-02 13:16] LABS: VBG HCO3 29 mmol/L (22-26); VBG O2 % Saturation 99.0 %
--- NOTE | 2024-12-02 13:34 | PC.NURSE ---
verbal report given to psych unit
--- NOTE | 2024-12-02 13:37 | MHC.EDTECH ---
pt ate 25% lunch
--- NOTE | 2024-12-02 13:40 | HO.PM.IMCN ---
History of Present Illness Data of Consult Service Date: 12/02/24 Primary Care Provider: Unknown Physician HPI Reason for consult: Medical management 64-year-old male with a past medical history of schizoaffective disorder, bipolar type, seizure disorder, chronic headaches, esophageal stricture, history of renal cell carcinoma, anemia, depression, GERD, auditory hallucinations, BPH, type 2 diabetes, hypertension and delusions, presented to the ED for some shortness of breath initially, he appeared to be laughing at internal stimuli. Review of ED HUANG reveals slight anemia at 12.2 no leukocytosis, Chem panel WNL, troponins negative. Chest x-ray is unremarkable. U tox negative, urine analysis negative for infection On exam patient is awake and alert, answering some questions however nonsensical. He is in a wheelchair, requiring assist to stand and transfer. Nursing reports that he was incontinent on arrival. Does not appear to be in any acute distress. Review of Systems Review of Systems: Limited due to cooperation, but he denies any pain PMFSH Medical History (Updated 12/02/24 @ 15:53 by Pau Springer DNP) Feeding by G-tube Bilateral cataracts Schizoaffective disorder, bipolar type Syncope Seizure Paraneoplastic syndrome Chronic headaches Colon cancer Hyperammonemia Esophageal stricture Encephalopathy Renal cell carcinoma Anemia Hernia Depression HTN (hypertension) Schizophrenia GERD (gastroesophageal reflux disease) Surgical History Hx of cataract extraction History of esophagogastroduodenoscopy (EGD) H/O colonoscopy History of left inguinal hernia repair H/O hemicolectomy Social History Household Members: Other Housing: House Do you presently have visiting nurse or other home services: Yes (LAY Garcia) Unable to assess alcohol history related to: Unable to respond and Unknown Alcohol intake: never Comment: incoherent Patient Tobacco Use Status: Never used Tobacco Smoked in Last 30 Days: No Use of substances other than those prescribed or required for medical reasons: No Advance Directives: No Advance Directives Information Provided: No service: No Sexual orientation: Did not discuss Meds Allergies Allergy/AdvReac Type Severity Reaction Status Date / Time haloperidol (From HALDOL) Allergy Unknown UNKNOWN Verified 12/01/24 22:33 adhesive tape AdvReac Unknown Rash Verified 12/01/24 22:33 Helidac Allergy Unknown seizure Uncoded 12/01/24 22:33 and stiffness Active Medications: Current Medications Acetaminophen (Acetaminophen 325 Mg Tablet) 650 mg PO Q6H PRN PRN Reason: Headache/Pain, Scale 1-10 Al Hydroxide/Mg Hydroxide (Magnesium Hydrox/Alum Hydrox 30 Ml Oral.Susp) 30 ml PO Q6H PRN PRN Reason: Heartburn/Nausea Chlorpromazine HCl (Chlorpromazine Hcl 25 Mg Tablet) 25 mg PO TID [facility] Last Admin: 12/02/24 08:09 Dose: 25 mg Divalproex Sodium (Divalproex Sodium 250 Mg Tablet.Dr) 250 mg PO DAILY [facility] Last Admin: 12/02/24 08:09 Dose: 250 mg Divalproex Sodium (Divalproex Sodium Er 500 Mg Tab.Er.24h) 1,000 mg PO BEDTIME DEVONTE Docusate Sodium (Docusate Sodium 100 Mg Capsule) 100 mg PO BID PRN PRN Reason: Constipation Finasteride (Finasteride 5 Mg Tablet) 5 mg PO DAILY [facility] Last Admin: 12/02/24 09:03 Dose: 5 mg Hydroxyzine HCl (Hydroxyzine Hcl 25 Mg Tablet) 25 mg PO Q6H PRN PRN Reason: mild anxiety Magnesium Hydroxide (Milk Of Magnesia 30 Ml Oral.Susp) 30 ml PO DAILY PRN PRN Reason: Constipation Metformin HCl (Metformin Hcl Er 500 Mg Tab.Er.24h) 500 mg PO DAILY@1700 DEVONTE Metoprolol Tartrate (Metoprolol Tartrate 25 Mg Tablet) 25 mg PO BID [facility]; Protocol Last Admin: 12/02/24 08:09 Dose: 25 mg Nicotine Polacrilex (Nicotine Polacrilex 2 Mg Gum) 4 mg BUCCAL Q2H PRN PRN Reason: Nicotine Cravings Olanzapine (Olanzapine 5 Mg Tablet) 5 mg PO TID PRN PRN Reason: agitation Trazodone HCl (Trazodone Hcl 50 Mg Tablet) 50 mg PO BEDTIME MRX1 PRN PRN Reason: Insomnia Vitamin D (Cholecalciferol (Vitamin D3) 25 Mcg Tablet) 25 mcg PO DAILY [facility] Last Admin: 12/02/24 08:09 Dose: 25 mcg Home Medications ?Medication ?Instructions ?Recorded ?Confirmed ?Last Taken ?Type docusate sodium 100 mg capsule 100 mg PO BID PRN Constipation 07/30/23 12/01/24 05/01/24 07:00 History olanzapine 10 mg tablet 10 mg PO DAILY 12/02/24 12/02/24 Unknown History Physical Exam Vital Signs and Narrative: Vital Signs: Last Vital Signs Temp 97.2 F 12/02/24 09:45 Pulse 83 12/02/24 09:45 Resp 20 12/02/24 09:45 BP 116/75 12/02/24 09:45 Pulse Ox 93 12/02/24 09:45 O2 Del Method Room Air 12/02/24 09:45 BMI result Body Mass Index 34.1 General: Appears to be responding to internal stimuli, laughing and smiling, counting 123. Head: Normacephalic, atraumatic ENT: oral mucosa moist, neck supple Cardiovascular: regular rate, regular rhythm Respiratory: CTAB, no wheeze, rales, rhonchi Gastrointestinal: Soft, non distended, non tender, non guarding Extremities: No calf swelling Neurological: Awake and alert, no facial droop noted Skin: Warm and dry Psychiatric: Laughing, not answering questions, non sensicle. Results Labs 12/01/24 23:24 12/01/24 23:24 Labs: Laboratory Results - last 24 hr 12/01/24 12/01/24 12/01/24 23:19 23:24 23:28 MCV 88.8 MCH 30.3 MCHC 34.2 RDW 15.2 Plt Count 168 MPV 8.9 L Immature Gran % (Auto) 0.5 H Neut % (Auto) 45.5 Lymph % (Auto) 40.7 H [place] % (Auto) 10.0 Eos % (Auto) 2.8 Baso % (Auto) 0.5 Lymph # (Auto) 2.4 [place] # (Auto) 0.6 Eos # (Auto) 0.2 Baso # (Auto) 0.0 Abs Immat Gran (auto) 0.03 Absolute Neuts (auto) 2.7 Absolute Nucleated RBC 0.000 Nucleated RBC % (auto) 0.0 VBG pH 7.54 H VBG pCO2 35 VBG pO2 60 VBG HCO3 30 H VBG O2 Saturation 87.0 VBG Base Excess 7.9 Anion Gap 16 Estim Creat Clear Calc 63.9 Estimated GFR 59 POC Glucose 145 H Random Glucose 142 H Calcium 9.3 Troponin I High Sens < 2.7 Urine Color Urine Appearance Urine pH Ur Specific [place] Urine Protein Urine Glucose (UA) Urine Ketones Urine Blood Urine Nitrite Ur Leukocyte Esterase Urine Opiates Screen Ur Buprenorphine Scrn Ur Oxycodone Screen Urine Methadone Screen Urine Fentanyl Screen Ur Barbiturates Screen Ur Phencyclidine Scrn Ur Amphetamines Screen U Benzodiazepines Scrn Urine Cocaine Screen U Marijuana (THC) Screen 12/02/24 12/02/24 11:56 13:13 MCV MCH MCHC RDW Plt Count MPV Immature Gran % (Auto) Neut % (Auto) Lymph % (Auto) [place] % (Auto) Eos % (Auto) Baso % (Auto) Lymph # (Auto) [place] # (Auto) Eos # (Auto) Baso # (Auto) Abs Immat Gran (auto) Absolute Neuts (auto) Absolute Nucleated RBC Nucleated RBC % (auto) VBG pH 7.46 H VBG pCO2 40 VBG pO2 136 VBG HCO3 29 H VBG O2 Saturation 99.0 VBG Base Excess 5.5 Anion Gap Estim Creat Clear Calc Estimated GFR POC Glucose Random Glucose Calcium Troponin I High Sens Urine Color Yellow Urine Appearance Clear Urine pH 7.5 Ur Specific [place] 1.010 Urine Protein Negative Urine Glucose (UA) Negative Urine Ketones Negative Urine Blood Negative Urine Nitrite Negative Ur Leukocyte Esterase Negative Urine Opiates Screen Not Detected Ur Buprenorphine Scrn Not Detected Ur Oxycodone Screen Not Detected Urine Methadone Screen Not Detected Urine Fentanyl Screen Not Detected Ur Barbiturates Screen Not Detected Ur Phencyclidine Scrn Not Detected Ur Amphetamines Screen Not Detected U Benzodiazepines Scrn Not Detected Urine Cocaine Screen Not Detected U Marijuana (THC) Screen Not Detected Assessment and Plan (1) Seizure: Status: Acute Plan 64-year-old male with a past medical history of schizoaffective disorder, bipolar type, depression, seizure disorder, type 2 diabetes, hypertension, BPH, and history of esophageal stricture initially presents to the ED with shortness of breath, his chest x-ray was negative, and he had unusual behavioral pattern responding to internal stimuli. He was admitted to inpatient psych for further care. Schizoaffective disorder, bipolar type/Depression/auditory hallucinations/delusions Treatment per psychiatric team Seizure disorder Continue Depakote Seizure precautions History of esophageal stricture Speech language eval to evaluate swallowing Type 2 diabetes Continue with metformin Hypertension Continue with metoprolol BPH Continue Proscar Thank you for allowing me to participate in the care of this patient. Will follow as needed, please notify medical provider with any changes in condition or concerns.
--- NOTE | 2024-12-02 14:01 | PC.NURSE ---
M5 nurse came to overflow, stated this patient needs a section 12 for him to go to the floor. charge nurse/provider and care team notified- floor nurse walking to POD to assist in expediting the section 12.
--- NOTE | 2024-12-02 18:00 | PC.ADMIT ---
Addendum entered by Jeana Delgadillo RN 12/02/24 18:46: Yomi refused the influenza vaccine as he may havehad it at his day program or by the visiting nurses. He said he has never smoked cigarettes, does not drink alcohol or use cannabis, and denies other drug use. Addendum entered by Jeana Delgadillo RN 12/02/24 18:35: Per report/ observation by the battery charger tester, Yomi was seen doing push-ups in his room and raised himself to a standing position independently and quite efficiently. He does have a walker and is on 5 minute checks but has been observed ambulating quite well without it and has needed prompts to use it. Perhaps a PT/ OT assessment might be useful to determine if the walker is necessary. Pau Springer NP put in a consult to speech for him as he also has a history of esophageal strictures. Original Note: Mr. Yomi Forman [facility] at 2:15pm with a diagnosis of psychosis. He is a 64 year old SWM who brought himself to the ER for shortness of breath late last night. While in the ER, he presented as disorganized, tangential, self dialoguing and reporting AVH. He was oriented to person and place only, and his speech was illogical and nonsensical when he could be understood. His speech was frequently incoherent and probably made worse due to being almost toothless. Luz Maria, the overflow RN said he uses a walker and needs assistance getting out of bed and getting situated with his walker. Upon arrival to the unit, Yomi was extremely unsteady on his feet so his weight is only an estimate and can be rechecked when he is more stable on his feet. A safety/ skin check and clothing changeover was done with the assistance of another RN and was unremarkable except for a bruise resembling a small bite eduardo on his upper right thigh. He denied that it was a bite eduardo but could not recall what it was from. He was actively internally preoccupied throughout this process as well as during his MS assessment, and frequently laughed and made odd gestures and confirmed he was hearing voices. Much of his assessment information was garnished from the CARE Team report however he did tell this freelance copywriter that he attends [employer] [facility] 5 days a week somewhere in [place] and has a visiting nurse who administers his meds twice a day. He said [facility] was the agency that provides his care. Medically, Yomi's active issues include a history of seizures, the date of his last one is unknown, HTN and GERD. He has a comprehensive history of past illnesses and surgeries which includes but is not limited to colon CA and Renal Cell Carcinoma in 2018, hemicolectomy, hernia repair and cataract surgery. Allergies include haldol (unknown raction), adhesive tape (rash) and Helidac Treatment (seizure and stiffness). He denies SI, HI and SIB. He is on a Section 12B.
[2024-12-03 07:00] VITALS: BMI 33.8
[2024-12-03 08:38] VITALS: BP 130/80; PULSE 76
[2024-12-03 08:41] LABS: Alanine Aminotransferase 35 U/L (0-40); Albumin Level 4.0 g/dL (3.5-5.0); Alkaline Phosphatase 56 U/L (39-117); Anion Gap 10 (12-20); Aspartate Amino Transferase 37 U/L (5-37); Blood Urea Nitrogen 17 mg/dL (9-16); Calcium 9.7 mg/dL (8.4-10.2); Carbon Dioxide 28 mmol/L (22-29); Chloride 108 mmol/L (96-108); Cholesterol 131 mg/dL (<200); Creatinine Clr Calc Pharmacy 74.3; Estimated Glomerular Filt Rate > 60; HDL Cholesterol 34 mg/dL (>40); Potassium 4.6 mmol/L (3.3-5.1); Sodium 141 mmol/L (135-145); Total Protein 6.4 g/dL (6.5-8.0); Triglycerides 148 mg/dL (<150)
--- NOTE | 2024-12-03 09:05 | P.HPPS_ITS ---
HPI Date of Service: 12/03/24 Chief Complaint: Psychosis Sources of Information: patient interviewed, chart reviewed and crisis/core team assessment reviewed HPI Subjective Notes: Rodriguez Warning and Conditional Voluntary Healthcare Proxy: No Guardianship: No Medical Problems Affecting Mental Status: No Narrative: 64-year-old male with psychiatric history of schizophrenia, auditory hallucinations, and delusions presents to [facility], via ambulance, yesterday for evaluation of shortness of breath. He was found to have inappropriate behavior and self-dialoguing. She was medically cleared and transferred to . On interview with this provider, patient notes that he called 911 because I needed help for my voice. He notes that he could not talk for a week. However, his voice recent now normal. He states that he lives alone and has been taking his medications as prescribed. He has a visiting nurse who sees him every day for medication administration. He walks to and from an adult daycare program Mondays through Saturdays. He has been sleeping well. Denies anxiety or depression. He denies SI/HI/AH/VH. He denies nicotine, illicit drugs, or alcohol use. UTox is negative. Ethanol level was not drawn. He offers no complaints and denies any symptoms at this time. He is known to [facility] and was last discharged on 11/23/2024 with similar presentation. Patient is seen at 10:30 on 12/03/2024. Past Psychiatric History: IP: Several. Cassie 06/03; [place] 2018, [facility] 10/[place]; 12/2016 and 09/2015 and 10/2015. 2020 OP: [facility] Aura Rain NP. [facility]- Hetal Enriquez- [phone]. Trials: [facility] [place] Review: Klonopin, Clozaril Haldol, Valium [place], Vraylar, Risperdal Medical Evaluation Reviewed: Yes [facility] Medical History (Updated 12/03/24 @ 12:09 by Vikas Jessica CNP) Feeding by G-tube Bilateral cataracts Schizoaffective disorder, bipolar type Syncope Seizure Paraneoplastic syndrome Chronic headaches Colon cancer Hyperammonemia Esophageal stricture Encephalopathy Renal cell carcinoma Anemia Hernia Depression HTN (hypertension) Schizophrenia GERD (gastroesophageal reflux disease) Surgical History Hx of cataract extraction History of esophagogastroduodenoscopy (EGD) H/O colonoscopy History of left inguinal hernia repair H/O hemicolectomy Family History: pt unable to discuss Social History: Pt was born in [place]. He has a brother and one sister, Malissa and Cayden. He reports his father is still alive but he does not talk much with him. Never , no children. He reports he completed HS. Not working on disability. Substance History: Denies nicotine, illicit drugs, or alcohol use. UTox is negative Trauma History: denies Diagnostics Vital Signs (24Hr): Vital Signs - 24 hr 12/02/24 09:45 12/02/24 14:01 12/02/24 15:00 Temperature 97.2 F 97.3 F 97.5 F Pulse Rate 83 79 95 Respiratory Rate 20 18 Blood Pressure 116/75 102/7 L 148/78 H Pulse Oximetry 93 97 98 Oxygen Delivery Method Room Air Room Air Room Air 12/02/24 20:00 12/03/24 08:38 Temperature 97.5 F Pulse Rate 93 76 Respiratory Rate Blood Pressure 107/70 130/80 Pulse Oximetry 94 Oxygen Delivery Method Room Air BMI result Body Mass Index 30.0 Labs 12/01/24 23:24 12/03/24 08:03 Labs: Laboratory Results - last 48 hr 12/01/24 12/01/24 12/01/24 23:19 23:24 23:28 WBC 6.0 RBC 4.02 L Hgb 12.2 L Hct 35.7 L MCV 88.8 MCH 30.3 MCHC 34.2 RDW 15.2 Plt Count 168 MPV 8.9 L Immature Gran % (Auto) 0.5 H Neut % (Auto) 45.5 Lymph % (Auto) 40.7 H [place] % (Auto) 10.0 Eos % (Auto) 2.8 Baso % (Auto) 0.5 Lymph # (Auto) 2.4 [place] # (Auto) 0.6 Eos # (Auto) 0.2 Baso # (Auto) 0.0 Abs Immat Gran (auto) 0.03 Absolute Neuts (auto) 2.7 Absolute Nucleated RBC 0.000 Nucleated RBC % (auto) 0.0 VBG pH 7.54 H VBG pCO2 35 VBG pO2 60 VBG HCO3 30 H VBG O2 Saturation 87.0 VBG Base Excess 7.9 Sodium 145 Potassium 3.5 D Chloride 104 Carbon Dioxide 29 Anion Gap 16 BUN 19 H Creatinine 1.24 Estim Creat Clear Calc 63.9 Estimated GFR 59 POC Glucose 145 H Random Glucose 142 H Calcium 9.3 Total Bilirubin AST ALT Alkaline Phosphatase Troponin I High Sens < 2.7 Total Protein Albumin Triglycerides Cholesterol LDL Cholesterol, Calc HDL Cholesterol TSH Urine Color Urine Appearance Urine pH Ur Specific [place] Urine Protein Urine Glucose (UA) Urine Ketones Urine Blood Urine Nitrite Ur Leukocyte Esterase Urine Opiates Screen Ur Buprenorphine Scrn Ur Oxycodone Screen Urine Methadone Screen Urine Fentanyl Screen Ur Barbiturates Screen Ur Phencyclidine Scrn Ur Amphetamines Screen U Benzodiazepines Scrn Urine Cocaine Screen U Marijuana (THC) Screen 12/02/24 12/02/24 12/03/24 11:56 13:13 08:03 WBC RBC Hgb Hct MCV MCH MCHC RDW Plt Count MPV Immature Gran % (Auto) Neut % (Auto) Lymph % (Auto) [place] % (Auto) Eos % (Auto) Baso % (Auto) Lymph # (Auto) [place] # (Auto) Eos # (Auto) Baso # (Auto) Abs Immat Gran (auto) Absolute Neuts (auto) Absolute Nucleated RBC Nucleated RBC % (auto) VBG pH 7.46 H VBG pCO2 40 VBG pO2 136 VBG HCO3 29 H VBG O2 Saturation 99.0 VBG Base Excess 5.5 Sodium 141 Potassium 4.6 D Chloride 108 Carbon Dioxide 28 Anion Gap 10 L BUN 17 H Creatinine 1.00 Estim Creat Clear Calc 74.3 Estimated GFR > 60 POC Glucose Random Glucose 83 Calcium 9.7 Total Bilirubin 0.4 AST 37 ALT 35 Alkaline Phosphatase 56 Troponin I High Sens Total Protein 6.4 L Albumin 4.0 Triglycerides 148 Cholesterol 131 LDL Cholesterol, Calc 68 HDL Cholesterol 34 L TSH 2.39 Urine Color Yellow Urine Appearance Clear Urine pH 7.5 Ur Specific [place] 1.010 Urine Protein Negative Urine Glucose (UA) Negative Urine Ketones Negative Urine Blood Negative Urine Nitrite Negative Ur Leukocyte Esterase Negative Urine Opiates Screen Not Detected Ur Buprenorphine Scrn Not Detected Ur Oxycodone Screen Not Detected Urine Methadone Screen Not Detected Urine Fentanyl Screen Not Detected Ur Barbiturates Screen Not Detected Ur Phencyclidine Scrn Not Detected Ur Amphetamines Screen Not Detected U Benzodiazepines Scrn Not Detected Urine Cocaine Screen Not Detected U Marijuana (THC) Screen Not Detected Meds/Allergies Meds Home Medications ?Medication ?Instructions ?Recorded ?Confirmed ?Type docusate sodium 100 mg capsule 100 mg PO BID PRN Const ipation 07/30/23 12/01/24 History olanzapine 10 mg tablet 10 mg PO DAILY 12/02/2411/16 History Allergies Allergies Allergy/AdvReac Type Severity Reaction Status Date / Time haloperidol (From HALDOL) Allergy Unknown UNKNOWN Verified 12/01/24 22:33 adhesive tape AdvReac Unknown Rash Verified 12/01/24 22:33 Helidac Allergy Unknown seizure Uncoded 12/01/24 22:33 and stiffness Mental Status Exam Mental Status Exam Narrative: Appearance: Casually dressed, disheveled. Behavior: Calm and cooperative throughout the interview. Inappropriate laughter and pointing at times. Eye contact is appropriate, and there are no signs of psychomotor agitation or retardation Speech: Severely hoarse vocal quality, rapid speaking rate and slurred/imprecise speech, spontaneous Thought process: Disorganized, tangential Thought content: Perceptual distortions, No self-harming thoughts Mood: Calm Affect: Congruent SI:denies HI:denies VH/AH:none Delusions: None Insight/judgment: Impaired insight and judgment Memory/cog: Alert, oriented x 4. grossly intact to conversational testing Assessment & Plan Assessment & Plan (1) Schizoaffective disorder, bipolar type: Status: Acute Code(s): F25.0 - Schizoaffective disorder, bipolar type (2) HTN (hypertension): Status: Acute Code(s): I10 - Essential (primary) hypertension (3) Diabetes: Status: Acute Code(s): E11.9 - Type 2 diabetes mellitus without complications Plan 64-year-old male with psychiatric history of schizophrenia, auditory hallucinations, and delusions presents to [facility], via [place], yesterday for evaluation of shortness of breath. He was found to have inappropriate behavior and self-dialoguing. She was medically cleared and transferred to . On interview with this provider, patient notes that he called 911 because I needed help for my voice. He notes that he could not talk for a week. However, his voice recent now normal. He states that he lives alone and has been taking his medications as prescribed. He has a visiting nurse who sees him every day for medication administration. He walks to and from an adult daycare program Mondays through Saturdays. He has been sleeping well. Denies anxiety or depression. He denies SI/HI/AH/VH. He denies nicotine, illicit drugs, or alcohol use. UTox is negative. Ethanol level was not drawn. He offers no complaints and denies any symptoms at this time. He is known to [facility] and was last discharged on 11/23/2024 with similar presentation. Formulation/Clinical reasoning: Schizoaffective disorder, bipolar type: Unclear whether with the patient is confused at baseline versus exacerbation of his symptoms. Also unclear whether he is taking his medications as noted, as patient is a poor historian. So far, his presentation seems to correlate with previous admissions here; however, sw will attempt to obtain more collateral regarding his baseline. Patient also presents with severely hoarse vocal quality, rapid speaking rate and slurred/imprecise speech; unclear if any of these communication needs are baseline or new onset; speech evaluated done this morning and downgraded to to chopped/advanced (NDD3) with thin liquids due to significant documented history of esophageal level dysphagia, most recent EGD on 05/01/24. His current A1c is 7.6%, above goal of less than 7.0%; metformin ER increased to 500 mg twice daily. Continue current treatment regimen. Will continue to evaluate. He signed a CV this morning. Plan: Admit to M5. CV 15 minutes check. Diagnostics as needed. Collateral contact. Continue remainder of regime. Encouraged full milieu. Discharge planning. Patient educated on: therapeutic strategies Reason for continued inpatient stay Substantial Risk for: rapid decompensation Statement Statement: I have reviewed the history and physical and performed a pertinent examination on my patient. No changes have occurred unless specified. If the History and Physical was not performed prior to admission, the Hospitalist's service will be consulted for completing the admission physical. Time Spent With Patient Time: Total time managing care of this patient today ____ minutes.
[2024-12-03 09:22] LABS: Hemoglobin A1C 187.0605 umol/L; Total Hemoglobin (HGBA1C) 3169.3048 umol/L
--- NOTE | 2024-12-03 12:02 | MHC.SL.SWA ---
Speech Pathologist Impression: Risk of Aspiration Due to: Dysphasia Diet Status: Esophageal phase dysphagia Liquid Consistency and Strategies for Safe Swallow: Liquid Intake Recommendation: Thin Liquid Intake Strategies: Solid Food Consistency: Dietary Recommendations: Chopped/Advanced (NDD3) Additional Modifications to Solid Foods: Avoid difficult to chew solids. Oral Medication Intake: Whole with Puree Please contact the pharmacy regarding appropriate crushable or liquid drug formulations that are available whenever modified delivery is recommended. Compensatory Strategies and Precautions to be Taken for Safe Swallow: Supervision While Eating and Drinking for Safe Swallow: Intermittent Supervision Foods to Avoid: Too large pieces of food, Difficult to chew solids. Swallowing Recommended Treatments: Recommendation for Speech: Inpatient Speech Therapy Comment: Patient has significant documented history of esophageal level dysphagia, most recent EGD on 05/01/24. Oral pharyngeal phase of swallow presents as mostly WFL, however patient is edentulous. Recommend DOWNGRADE diet to Chopped/Advanced (NDD3) with THIN liquids, pills whole with puree. Patient also is presenting with severe vocal hoarseness and likely has vocal pathology, though it is unclear if this is new onset. Patient further presents with press for speech, rapid speaking rate coupled with imprecise articulation (dysarthria), making his verbalizations difficult to understand. This also is unclear if it is new onset or patient's baseline. Patient can briefly at times improve his articulation but is unable to maintain and lapses back to rapid, slurred speech. Recommend patient be referred for follow-up ENT evaluation as outpatient, further assessment of speech/voice as inpatient. PER DIEM NURSE, MD, RD notified of recommendations by secure text, RN and SW (who was present)advised in person. CUSTOMER LOGISTICS MANAGER adjusted diet in chart. Frequency/Duration: Date Range for Service Req: Timeline to reassess: Field Assessor Clinican/Clinical Fellow: No Supervisory Statement: I have reviewed and agree with the student/clinical fellow's documentation: N/A Speech Language Pathologist: Leighann Burns M.A., CCC-CUSTOMER LOGISTICS MANAGER
--- NOTE | 2024-12-03 12:23 | HO.PM.IMPN ---
Subjective Subjective Date of Service: 12/03/24 Interval History: Patient seen and examined, more alert today, answering questions. Ambulating with a walker. Present in milieu. Denies SOB, Chest pain. Seen by speech with recommendations to downgrade diet, Review of Systems Denies any shortness of breath, chest pain, dizziness, lightheadedness, abdominal pain or discomfort, nausea vomiting or diarrhea Physical Exam Exam: Exam: General: Alert and conversant. Head: Normacephalic, atraumatic ENT: oral mucosa moist, neck supple Cardiovascular: regular rate, regular rhythm Respiratory: CTAB, no wheeze, rales, rhonchi Gastrointestinal: Soft, non distended, non tender, non guarding Extremities: No calf swelling Neurological: Awake and alert, no facial droop noted. Ambulating with walker Skin: Warm and dry Psychiatric: Answering questions. Vital Signs: Vital Signs: Last Vital Signs Temp 97.5 F 12/02/24 20:00 Pulse 76 12/03/24 08:38 Resp 18 12/02/24 14:01 BP 130/80 12/03/24 08:38 Pulse Ox 94 12/02/24 20:00 O2 Del Method Room Air 12/02/24 20:00 BMI result Body Mass Index 33.8 Objective Data Active Medications Acetaminophen (Acetaminophen 325 Mg Tablet) 650 mg PO Q6H PRN PRN Reason: Headache/Pain, Scale 1-10 Last Admin: 12/03/24 08:38 Dose: 650 mg Documented By: NICOWARREN Al Hydroxide/Mg Hydroxide (Magnesium Hydrox/Alum Hydrox 30 Ml Oral.Susp) 30 ml PO Q6H PRN PRN Reason: Heartburn/Nausea Chlorpromazine HCl (Chlorpromazine Hcl 25 Mg Tablet) 25 mg PO TID [facility] Last Admin: 12/03/24 08:38 Dose: 25 mg Documented By: NICOLIM Divalproex Sodium (Divalproex Sodium 250 Mg Tablet.) 250 mg PO DAILY [facility] Last Admin: 12/03/24 08:38 Dose: 250 mg Documented By: NICOLIM Divalproex Sodium (Divalproex Sodium Er 500 Mg Tab.Er.24h) 1,000 mg PO BEDTIME [facility] Last Admin: 12/02/24 21:40 Dose: 1,000 mg Documented By: MAGNOLIA Docusate Sodium (Docusate Sodium 100 Mg Capsule) 100 mg PO BID PRN PRN Reason: Constipation Finasteride (Finasteride 5 Mg Tablet) 5 mg PO DAILY [facility] Last Admin: 12/03/24 08:38 Dose: 5 mg Documented By: DICKSON Hydroxyzine HCl (Hydroxyzine Hcl 25 Mg Tablet) 25 mg PO Q6H PRN PRN Reason: mild anxiety Magnesium Hydroxide (Milk Of Magnesia 30 Ml Oral.Susp) 30 ml PO DAILY PRN PRN Reason: Constipation Metformin HCl (Metformin Hcl Er 500 Mg Tab.Er.24h) 500 mg PO DAILY@1700 [facility] Last Admin: 12/02/24 17:31 Dose: 500 mg Documented By: MADELYN Metoprolol Tartrate (Metoprolol Tartrate 25 Mg Tablet) 25 mg PO BID [facility]; Protocol Last Admin: 12/03/24 08:38 Dose: 25 mg Documented By: DICKSON Nicotine Polacrilex (Nicotine Polacrilex 2 Mg Gum) 4 mg BUCCAL Q2H PRN PRN Reason: Nicotine Cravings Olanzapine (Olanzapine 5 Mg Tablet) 5 mg PO TID PRN PRN Reason: agitation Last Admin: 12/03/24 02:07 Dose: 5 mg Documented By: ALEXANDRO Olanzapine (Olanzapine 10 Mg Tablet) 10 mg PO DAILY [facility] Last Admin: 12/03/24 08:38 Dose: 10 mg Documented By: DICKSON Trazodone HCl (Trazodone Hcl 50 Mg Tablet) 50 mg PO BEDTIME MRX1 PRN PRN Reason: Insomnia Last Admin: 12/03/24 02:07 Dose: 50 mg Documented By: ALEXANDRO Vitamin D (Cholecalciferol (Vitamin D3) 25 Mcg Tablet) 25 mcg PO DAILY [facility] Last Admin: 12/03/24 08:38 Dose: 25 mcg Documented By: DICKSON Labs 12/01/24 23:24 12/03/24 08:03 Labs: Laboratory Results - last 24 hr 12/02/24 12/03/24 13:13 08:03 VBG pH 7.46 H VBG pCO2 40 VBG pO2 136 VBG HCO3 29 H VBG O2 Saturation 99.0 VBG Base Excess 5.5 Anion Gap 10 L Estim Creat Clear Calc 74.3 Estimated GFR > 60 Random Glucose 83 Estimat Average Glucose 171 Hemoglobin A1c % 7.6 H Calcium 9.7 Total Bilirubin 0.4 AST 37 ALT 35 Alkaline Phosphatase 56 Total Protein 6.4 L Albumin 4.0 Triglycerides 148 Cholesterol 131 LDL Cholesterol, Calc 68 HDL Cholesterol 34 L TSH 2.39 Assessment and Plan (1) HTN (hypertension): Status: Acute Plan 64-year-old male with a past medical history of schizoaffective disorder, bipolar type, depression, seizure disorder, type 2 diabetes, hypertension, BPH, and history of esophageal stricture initially presents to the ED with shortness of breath, his chest x-ray was negative, and he had unusual behavioral pattern responding to internal stimuli. He was admitted to inpatient psych for further care. Schizoaffective disorder, bipolar type/Depression/auditory hallucinations/delusions Treatment per psychiatric team Seizure disorder Continue Depakote Seizure precautions History of esophageal stricture Seen by JIG FITTER Recommendations to downgrade diet to NDD3 with thin liquids Type 2 diabetes Continue with metformin Recent A1c 7.6 Hypertension Continue with metoprolol BPH Continue Proscar Thank you for allowing me to participate in the care of this patient. Will follow as needed, please notify medical provider with any changes in condition or concerns Quality Stroke Does the patient have a stroke diagnosis?: No VTE Prior VTE?: No VTE Risk Level:: Medical - low VTE Device Contraindication: Treatment Not Indicated VTE Drug Contraindication: Treatment Not Indicated
[2024-12-03 20:00] VITALS: BP 138/78; PULSE 91; TEMP 36.7; O2SAT 98
[2024-12-03] MEDS: Milk of Magnesia 30 ML ORAL.SUSP PO (22:52)
[2024-12-04 07:58] LABS: Glucose, Whole Blood 143 mg/dL (60-115)
[2024-12-04 08:17] VITALS: BP 111/66; PULSE 95; TEMP 36.4; O2SAT 96
[2024-12-04 11:59] LABS: Glucose, Whole Blood 97 mg/dL (60-115)
--- NOTE | 2024-12-04 15:28 | HO.PSYCHPN ---
Subjective Subjective Date of Service: 12/04/24 Reason For Visit: Psychosis Interim History: Active on unit. mumbled and slurred speech; difficult to understand at times. Flight of ideas. Patient reports he is no longer having auditory hallucinations. pt stated, the voices are all gone. I see people though . He reports sleeping well. denies SI/HI. Per RN, pt was making inappropriate sexual comments towards her and others and was able to be redirected. Continue current tx plan. Medication Compliance: Yes Mental Status Exam Mental Status Exam Patient Appearance: Disheveled Patient Orientation: Person and Place Level of Consciousness: Awake Patient Behavior: Cooperative and Good Eye Contact Mood Description: Labile Affect Description: Labile Ability to Follow Directions: Good Speech Pattern: Slurred and Mumbled Hallucinations: Auditory and Visual Thought Process: Disoriented Thought Content: positive for Flight of Ideas Diagnostics Vital Signs (24Hr): Vital Signs - 24 hr 12/03/24 20:00 12/04/24 08:17 Temperature 98.1 F 97.5 F Pulse Rate 91 95 Blood Pressure 138/78 111/66 Pulse Oximetry 98 96 Oxygen Delivery Method Room Air Room Air BMI result Body Mass Index 33.8 Labs 12/01/24 23:24 12/03/24 08:03 Labs: Laboratory Results - last 48 hr 12/03/24 12/04/24 12/04/24 08:03 07:50 11:53 Sodium 141 Potassium 4.6 D Chloride 108 Carbon Dioxide 28 Anion Gap 10 L BUN 17 H Creatinine 1.00 Estim Creat Clear Calc 74.3 Estimated GFR > 60 POC Glucose 143 H 97 Random Glucose 83 Estimat Average Glucose 171 Hemoglobin A1c % 7.6 H Calcium 9.7 Total Bilirubin 0.4 AST 37 ALT 35 Alkaline Phosphatase 56 Total Protein 6.4 L Albumin 4.0 Triglycerides 148 Cholesterol 131 LDL Cholesterol, Calc 68 HDL Cholesterol 34 L TSH 2.39 Medications Medications Current Medications Acetaminophen (Acetaminophen 325 Mg Tablet) 650 mg PO Q6H PRN PRN Reason: Headache/Pain, Scale 1-10 Last Admin: 12/03/24 08:38 Dose: 650 mg Al Hydroxide/Mg Hydroxide (Magnesium Hydrox/Alum Hydrox 30 Ml Oral.Susp) 30 ml PO Q6H PRN PRN Reason: Heartburn/Nausea Chlorpromazine HCl (Chlorpromazine Hcl 25 Mg Tablet) 25 mg PO TID [facility] Last Admin: 12/04/24 15:15 Dose: 25 mg Divalproex Sodium (Divalproex Sodium 250 Mg Tablet.Dr) 250 mg PO DAILY [facility] Last Admin: 12/04/24 08:34 Dose: 250 mg Divalproex Sodium (Divalproex Sodium Er 500 Mg Tab.Er.24h) 1,000 mg PO BEDTIME [facility] Last Admin: 12/03/24 21:27 Dose: 1,000 mg Docusate Sodium (Docusate Sodium 100 Mg Capsule) 100 mg PO BID PRN PRN Reason: Constipation Last Admin: 12/03/24 22:50 Dose: 100 mg Finasteride (Finasteride 5 Mg Tablet) 5 mg PO DAILY [facility] Last Admin: 12/04/24 08:35 Dose: 5 mg Hydroxyzine HCl (Hydroxyzine Hcl 25 Mg Tablet) 25 mg PO Q6H PRN PRN Reason: mild anxiety Last Admin: 12/04/24 10:30 Dose: 25 mg Magnesium Hydroxide (Milk Of Magnesia 30 Ml Oral.Susp) 30 ml PO DAILY PRN PRN Reason: Constipation Last Admin: 12/03/24 22:52 Dose: 30 ml Metformin HCl (Metformin Hcl Er 500 Mg Tab.Er.24h) 500 mg PO BID [facility] Last Admin: 12/04/24 08:34 Dose: 500 mg Metoprolol Tartrate (Metoprolol Tartrate 25 Mg Tablet) 25 mg PO BID [facility]; Protocol Last Admin: 12/04/24 08:34 Dose: 25 mg Nicotine Polacrilex (Nicotine Polacrilex 2 Mg Gum) 4 mg BUCCAL Q2H PRN PRN Reason: Nicotine Cravings Olanzapine (Olanzapine 5 Mg Tablet) 5 mg PO TID PRN PRN Reason: agitation Last Admin: 12/04/24 10:31 Dose: 5 mg Olanzapine (Olanzapine 10 Mg Tablet) 10 mg PO DAILY [facility] Last Admin: 12/04/24 08:34 Dose: 10 mg Trazodone HCl (Trazodone Hcl 50 Mg Tablet) 50 mg PO BEDTIME MRX1 PRN PRN Reason: Insomnia Last Admin: 12/03/24 21:27 Dose: 50 mg Vitamin D (Cholecalciferol (Vitamin D3) 25 Mcg Tablet) 25 mcg PO DAILY [facility] Last Admin: 12/04/24 08:35 Dose: 25 mcg Allergies Allergies Allergy/AdvReac Type Severity Reaction Status Date / Time haloperidol (From HALDOL) Allergy Unknown UNKNOWN Verified 12/01/24 22:33 adhesive tape AdvReac Unknown Rash Verified 12/01/24 22:33 Helidac Allergy Unknown seizure Uncoded 12/01/24 22:33 and stiffness Assessment & Plan Assessment & Plan (1) Schizoaffective disorder, bipolar type: Status: Acute Code(s): F25.0 - Schizoaffective disorder, bipolar type (2) HTN (hypertension): Status: Acute Code(s): I10 - Essential (primary) hypertension (3) Diabetes: Status: Acute Code(s): E11.9 - Type 2 diabetes mellitus without complications Plan 64-year-old male with psychiatric history of schizophrenia, auditory hallucinations, and delusions presents to [facility], via ambulance, yesterday for evaluation of shortness of breath. He was found to have inappropriate behavior and self-dialoguing. She was medically cleared and transferred to . On interview with this provider, patient notes that he called 911 because I needed help for my voice. He notes that he could not talk for a week. However, his voice recent now normal. He states that he lives alone and has been taking his medications as prescribed. He has a visiting nurse who sees him every day for medication administration. He walks to and from an adult daycare program Mondays through Saturdays. He has been sleeping well. Denies anxiety or depression. He denies SI/HI/AH/VH. He denies nicotine, illicit drugs, or alcohol use. UTox is negative. Ethanol level was not drawn. He offers no complaints and denies any symptoms at this time. He is known to [facility] and was last discharged on 11/23/2024 with similar presentation. Formulation/Clinical reasoning: Schizoaffective disorder, bipolar type: Unclear whether with the patient is confused at baseline versus exacerbation of his symptoms. Also unclear whether he is taking his medications as noted, as patient is a poor historian. So far, his presentation seems to correlate with previous admissions here; however, sw will attempt to obtain more collateral regarding his baseline. Patient also presents with severely hoarse vocal quality, rapid speaking rate and slurred/imprecise speech; unclear if any of these communication needs are baseline or new onset; speech evaluated done this morning and downgraded to to chopped/advanced (NDD3) with thin liquids due to significant documented history of esophageal level dysphagia, most recent EGD on 05/01/24. His current A1c is 7.6%, above goal of less than 7.0%; metformin ER increased to 500 mg twice daily. Continue current treatment regimen. Will continue to evaluate. He signed a CV this morning. Plan: Admit to [facility]. CV 15 minutes check. Diagnostics as needed. Collateral contact. Continue remainder of regime. Encouraged full milieu. Discharge planning. 12/04:Active on unit. mumbled and slurred speech; difficult to understand at times. Flight of ideas. Patient reports he is no longer having auditory hallucinations. pt stated, the voices are all gone. I see people though . He reports sleeping well. denies SI/HI. Per RN, pt was making inappropriate sexual comments towards her and others and was able to be redirected. Continue current tx plan. Patient educated on: medication risk/benefits Reason for continued inpatient stay Substantial Risk for: med/psych decompensation Time Spent With Patient Time: Total time managing care of this patient today _20___ minutes.
[2024-12-04 20:00] VITALS: BP 110/66; PULSE 95; TEMP 36.4; O2SAT 96
[2024-12-04 21:46] VITALS: BP 100/60; PULSE 85
[2024-12-05 08:00] VITALS: BP 121/65; PULSE 91; TEMP 36.1; O2SAT 94
[2024-12-05 08:29] VITALS: BP 121/65; PULSE 91
--- NOTE | 2024-12-05 08:45 | HO.PSYCHPN ---
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 Patient however says that he is good. Briefly discussed medications Mental Status Exam Mental Status Exam Patient Appearance: Disheveled Patient Orientation: Person and Place Level of Consciousness: Awake and Restless Patient Behavior: Hyperactive, Cooperative and Good Eye Contact Behavior Comments: Intrusive Mood Description: Labile Affect Description: Labile Ability to Follow Directions: Fair Speech Pattern: Mumbled (Baseline?) Hallucinations: Auditory and Visual Thought Process: Goal Oriented (Can goal oriented be but also disorganized) Thought Content: positive for Flight of Ideas Judgement and Insight: Impaired Diagnostics Vital Signs (24Hr): Vital Signs - 24 hr 12/04/24 20:00 12/04/24 21:46 12/05/24 08:29 Temperature 97.5 F Pulse Rate 95 85 91 Blood Pressure 110/66 100/60 121/65 Pulse Oximetry 96 Oxygen Delivery Method Room Air BMI result Body Mass Index 33.8 Labs 12/01/24 23:24 12/03/24 08:03 Labs: Laboratory Results - last 48 hr 12/03/24 12/04/24 12/04/24 08:03 07:50 11:53 POC Glucose 143 H 97 Estimat Average Glucose 171 Hemoglobin A1c % 7.6 H TSH 2.39 Medications Medications Current Medications Acetaminophen (Acetaminophen 325 Mg Tablet) 650 mg PO Q6H PRN PRN Reason: Headache/Pain, Scale 1-10 Last Admin: 12/03/24 08:38 Dose: 650 mg Al Hydroxide/Mg Hydroxide (Magnesium Hydrox/Alum Hydrox 30 Ml Oral.Susp) 30 ml PO Q6H PRN PRN Reason: Heartburn/Nausea Chlorpromazine HCl (Chlorpromazine Hcl 25 Mg Tablet) 25 mg PO TID [facility] Last Admin: 12/05/24 08:28 Dose: 25 mg Divalproex Sodium (Divalproex Sodium 250 Mg Tablet.Dr) 250 mg PO DAILY [facility] Last Admin: 12/05/24 08:29 Dose: 250 mg Divalproex Sodium (Divalproex Sodium Er 500 Mg Tab.Er.24h) 1,000 mg PO BEDTIME [facility] Last Admin: 12/04/24 21:45 Dose: 1,000 mg Docusate Sodium (Docusate Sodium 100 Mg Capsule) 100 mg PO BID PRN PRN Reason: Constipation Last Admin: 12/03/24 22:50 Dose: 100 mg Finasteride (Finasteride 5 Mg Tablet) 5 mg PO DAILY [facility] Last Admin: 12/05/24 08:29 Dose: 5 mg Hydroxyzine HCl (Hydroxyzine Hcl 25 Mg Tablet) 25 mg PO Q6H PRN PRN Reason: mild anxiety Last Admin: 12/04/24 21:45 Dose: 25 mg Magnesium Hydroxide (Milk Of Magnesia 30 Ml Oral.Susp) 30 ml PO DAILY PRN PRN Reason: Constipation Last Admin: 12/03/24 22:52 Dose: 30 ml Metformin HCl (Metformin Hcl Er 500 Mg Tab.Er.24h) 500 mg PO BID [facility] Last Admin: 12/05/24 08:29 Dose: 500 mg Metoprolol Tartrate (Metoprolol Tartrate 25 Mg Tablet) 25 mg PO BID [facility]; Protocol Last Admin: 12/05/24 08:29 Dose: 25 mg Nicotine Polacrilex (Nicotine Polacrilex 2 Mg Gum) 4 mg BUCCAL Q2H PRN PRN Reason: Nicotine Cravings Olanzapine (Olanzapine 5 Mg Tablet) 5 mg PO TID PRN PRN Reason: agitation Last Admin: 12/04/24 21:45 Dose: 5 mg Olanzapine (Olanzapine 10 Mg Tablet) 10 mg PO DAILY [facility] Last Admin: 12/05/24 08:29 Dose: 10 mg Trazodone HCl (Trazodone Hcl 50 Mg Tablet) 50 mg PO BEDTIME MRX1 PRN PRN Reason: Insomnia Last Admin: 12/04/24 21:45 Dose: 50 mg Vitamin D (Cholecalciferol (Vitamin D3) 25 Mcg Tablet) 25 mcg PO DAILY [facility] Last Admin: 12/05/24 08:28 Dose: 25 mcg Allergies Allergies Allergy/AdvReac Type Severity Reaction Status Date / Time haloperidol (From HALDOL) Allergy Unknown UNKNOWN Verified 12/01/24 22:33 adhesive tape AdvReac Unknown Rash Verified 12/01/24 22:33 Helidac Allergy Unknown seizure Uncoded 12/01/24 22:33 and stiffness Assessment & Plan Assessment & Plan (1) Schizoaffective disorder, bipolar type: Status: Acute Code(s): F25.0 - Schizoaffective disorder, bipolar type (2) HTN (hypertension): Status: Acute Code(s): I10 - Essential (primary) hypertension (3) Diabetes: Status: Acute Code(s): E11.9 - Type 2 diabetes mellitus without complications Plan 64-year-old male with psychiatric history of schizophrenia, auditory hallucinations, and delusions presents to [facility], via ambulance, yesterday for evaluation of shortness of breath. He was found to have inappropriate behavior and self-dialoguing. She was medically cleared and transferred to . On interview with this provider, patient notes that he called 911 because I needed help for my voice. He notes that he could not talk for a week. However, his voice recent now normal. He states that he lives alone and has been taking his medications as prescribed. He has a visiting nurse who sees him every day for medication administration. He walks to and from an adult daycare program Mondays through Saturdays. He has been sleeping well. Denies anxiety or depression. He denies SI/HI/AH/VH. He denies nicotine, illicit drugs, or alcohol use. UTox is negative. Ethanol level was not drawn. He offers no complaints and denies any symptoms at this time. He is known to [facility] and was last discharged on 11/23/2024 with similar presentation. Formulation/Clinical reasoning: Schizoaffective disorder, bipolar type: Unclear whether with the patient is confused at baseline versus exacerbation of his symptoms. Also unclear whether he is taking his medications as noted, as patient is a poor historian. So far, his presentation seems to correlate with previous admissions here; however, sw will attempt to obtain more collateral regarding his baseline. Patient also presents with severely hoarse vocal quality, rapid speaking rate and slurred/imprecise speech; unclear if any of these communication needs are baseline or new onset; speech evaluated done this morning and downgraded to to chopped/advanced (NDD3) with thin liquids due to significant documented history of esophageal level dysphagia, most recent EGD on 05/01/24. His current A1c is 7.6%, above goal of less than 7.0%; metformin ER increased to 500 mg twice daily. Continue current treatment regimen. Will continue to evaluate. He signed a CV this morning. Plan: Admit to . CV 15 minutes check. Diagnostics as needed. Collateral contact. Continue remainder of regime. Encouraged full milieu. Discharge planning. Hospital course 12/04:Active on unit. mumbled and slurred speech; difficult to understand at times. Flight of ideas. Patient reports he is no longer having auditory hallucinations. pt stated, the voices are all gone. I see people though . He reports sleeping well. denies SI/HI. Per RN, pt was making inappropriate sexual comments towards her and others and was able to be redirected. Continue current tx plan. 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 Patient however says that he is good. -seems that perhaps patient is somewhat manic; com writer trying to relocate his community [place] to know what medications are available Patient educated on: diagnosis and medication risk/benefits Informed Consent: understands, does not understand and further education needed Reason for continued inpatient stay Substantial Risk for: inability to function Time Spent With Patient Time: Total time managing care of this patient today ____ minutes.
[2024-12-05 11:20] VITALS: BP 121/65; PULSE 91
[2024-12-05 12:26] LABS: Glucose, Whole Blood 114 mg/dL (60-115)
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
[2024-12-05 19:35] VITALS: BP 123/80; PULSE 87; RESP 16; TEMP 36.4; O2SAT 96
[2024-12-05 20:03] VITALS: BP 123/80; PULSE 87
[2024-12-06] MEDS: Milk of Magnesia 30 ML ORAL.SUSP PO (06:53)
[2024-12-06 08:00] VITALS: BP 110/82; PULSE 81; TEMP 36.6; O2SAT 96
[2024-12-06 08:01] LABS: Glucose, Whole Blood 141 mg/dL (60-115)
[2024-12-06 08:04] VITALS: BP 131/81
[2024-12-06 08:41] LABS: Ammonia 46 umol/L (13-55)
[2024-12-06 08:46] LABS: Alanine Aminotransferase 47 U/L (0-40); Albumin Level 4.2 g/dL (3.5-5.0); Alkaline Phosphatase 60 U/L (39-117); Aspartate Amino Transferase 47 U/L (5-37); Total Protein 6.9 g/dL (6.5-8.0)
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
--- NOTE | 2024-12-06 18:12 | PC.NURSE ---
Around 4:15pm, sugey had a small but loud coughing fit. He quickly settled for a few minutes and then had another, more pronounced one. 02 sat was checked after the second fit and was 97%, Temp was 97.3. Respirations were regular and he was able to speak without distress. This tag writer brought Sugey some gingerale and sat with him while he sipped it and he seemed to be more stable. I left the room and returned a few minutes later and he was finishing a bag of potato chips. Requested that he refrain from eating until dinner arrived. By the time dinner arrived at 5:15pm, Sugey was sleeping peacefully with respirations regular and no evidence of respiratory distress noted.
[2024-12-06 20:00] VITALS: BP 113/75; PULSE 94; RESP 15; TEMP 36.6; O2SAT 94
[2024-12-07 07:52] VITALS: BP 119/68; PULSE 97; TEMP 36.3; O2SAT 96
[2024-12-07 08:09] LABS: Glucose, Whole Blood 182 mg/dL (60-115)
--- NOTE | 2024-12-07 15:10 | MHC.SLORD ---
Speech Language Pathology Order Status: No dysphagia treatment 12/07.
[2024-12-07 20:00] VITALS: BP 150/94; PULSE 86; TEMP 36.1; O2SAT 95
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
[2024-12-07 22:35] VITALS: BP 122/77; PULSE 88; TEMP 35.9; O2SAT 96
[2024-12-08 08:00] VITALS: BP 118/74; PULSE 82; RESP 18; TEMP 36.4; O2SAT 97
[2024-12-08 09:35] VITALS: BP 132/74; PULSE 76
[2024-12-08] MEDS: Milk of Magnesia 30 ML ORAL.SUSP PO (10:01)
--- NOTE | 2024-12-08 13:41 | PC.NURSE ---
Pt pressed emergency call light from shower C and when he was checks on he was found sitting on the floor . When asked how he got on the floor he said he fell down. He denies hitting his head and reports he hit his left knee. He was assisted up on floor and sat on chair. His VS 96.6, HR 91, BP 100/68, oxygen on RA 96%. Provider Lien informed of above. He denies any injury and no imaging ordered. He was able to walk back to his room and then went to sleep. He is transferring to [facility] on S[facility] momentarily.
[2024-12-08 13:53] VITALS: BP 100/68; PULSE 91; RESP 20; TEMP 35.9; O2SAT 96
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
[2024-12-08 15:45] VITALS: BP 121/72; PULSE 74; RESP 18; TEMP 36.5; O2SAT 98
--- NOTE | 2024-12-08 15:46 | PC.NURSE ---
Yomi Forman is a 64 y/o male who was transferred from to S[facility] for tx of psychosis. Pt has a hx of schizophrenia and AH. Upon arrival to S[facility], pt displayed a broad affect and a pleasant mood. Pt speech is slurred and nonsensical at times. Pt was visible laughing to himself at times and laughing during communication with RN intermittently. Pt VS WNL. Pt skin check unremarkable. Pt ambulates independently but very slowly. Pt was making statements to RN such as I'm 14 years old and You have blue eyes. Where did you get them? After pt completed skin check, pt is now resting comfortably in his room waiting for dinner.
[2024-12-08 20:00] VITALS: BP 114/62; PULSE 88; RESP 18; TEMP 36.5; O2SAT 97
[2024-12-09 06:46] LABS: Glucose, Whole Blood 144 mg/dL (60-115)
[2024-12-09 08:00] VITALS: BP 108/66; PULSE 88; RESP 18; TEMP 36.8; O2SAT 93
[2024-12-09] MEDS: OLANZapine 7.5 MG TABLET 15 MG PO ×2 (08:26→20:50)
[2024-12-09 10:43] LABS: MANUAL DIFF FLAG NO
[2024-12-09 10:46] LABS: Hematocrit 34.1 % (42.0-52.0); Hemoglobin 11.4 g/dl (14.0-18.0); Imm Gran Abs Auto 0.02 X10*3/uL (0.00-0.03); Imm Gran Pct Auto 0.4 % (0.0-0.4); Lymphocytes Absolute Auto 1.6 X10*3/uL (1.2-4.9); Mean Corpuscular HGB Conc 33.4 g/dl (31.0-36.0); Mean Corpuscular Hemoglobin 30.6 pg (27.0-33.0); Mean Corpuscular Volume 91.7 fL (80.0-98.0); NRBC Abs Auto 0.000 X10*3/uL (0.0-0.012); NRBC Pct Auto 0.0 /100WBC (0.0-0.2); Platelet Count 155 X10*3/uL (160-400); Red Blood Count 3.72 X10*6/uL (4.60-5.80); White Blood Count 5.2 X10*3/uL (4.8-10.8)
[2024-12-09 11:00] LABS: Alanine Aminotransferase 36 U/L (0-40); Albumin Level 3.7 g/dL (3.5-5.0); Alkaline Phosphatase 54 U/L (39-117); Anion Gap 11 (12-20); Aspartate Amino Transferase 33 U/L (5-37); Blood Urea Nitrogen 14 mg/dL (9-16); Calcium 8.9 mg/dL (8.4-10.2); Carbon Dioxide 26 mmol/L (22-29); Chloride 107 mmol/L (96-108); Creatinine Clr Calc Pharmacy 69.8; Estimated Glomerular Filt Rate > 60; Potassium 4.2 mmol/L (3.3-5.1); Sodium 140 mmol/L (135-145); Total Protein 6.1 g/dL (6.5-8.0)
[2024-12-09 11:02] LABS: Alanine Aminotransferase 38 U/L (0-40); Albumin Level 3.7 g/dL (3.5-5.0); Alkaline Phosphatase 54 U/L (39-117); Anion Gap 10 (12-20); Aspartate Amino Transferase 31 U/L (5-37); Blood Urea Nitrogen 14 mg/dL (9-16); Calcium 8.9 mg/dL (8.4-10.2); Carbon Dioxide 26 mmol/L (22-29); Chloride 108 mmol/L (96-108); Creatinine Clr Calc Pharmacy 68.6; Estimated Glomerular Filt Rate > 60; Potassium 4.2 mmol/L (3.3-5.1); Sodium 140 mmol/L (135-145); Total Protein 6.2 g/dL (6.5-8.0)
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
--- NOTE | 2024-12-09 15:31 | MHC.SLORD ---
Speech Language Pathology Order Status: CHEMISTRY TECHNOLOGIST did not see pt today.
[2024-12-09 20:00] VITALS: BP 123/75; PULSE 83; RESP 18; TEMP 36.5; O2SAT 96
[2024-12-09 20:50] VITALS: BP 123/75; PULSE 83
[2024-12-10 08:00] VITALS: BP 120/59; PULSE 96; RESP 14; O2SAT 96
[2024-12-10 08:27] LABS: Creatinine Clr Calc Pharmacy 68.6; Estimated Glomerular Filt Rate > 60
[2024-12-10 10:25] VITALS: BMI 33.9
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
--- NOTE | 2024-12-10 15:57 | MHC.SL.SWA ---
Speech Pathologist Impression: Risk of Aspiration Due to: Dysphasia Diet Status: Pt is a 63 year-old make referred for a choking episode. On the day of the study he does not have his dentures present. He is not on a modified diet but reports that he does avoid vegetables with skin on them. Liquid Consistency and Strategies for Safe Swallow: Liquid Intake Recommendation: Thin Liquid Intake Strategies: Solid Food Consistency: Dietary Recommendations: Chopped/Advanced (NDD3) Additional Modifications to Solid Foods: Patient requires cuing to keep bites small, may try to pack mouth or take too large bites. Encourage alternating liquids and solids. Oral Medication Intake: Whole with Puree Please contact the pharmacy regarding appropriate crushable or liquid drug formulations that are available whenever modified delivery is recommended. Compensatory Strategies and Precautions to be Taken for Safe Swallow: Sitting Upright (90 deg) Liquids from Cup Liquids from Straw Small Bites and Sips Alternate Liquids/Solids Rate of Ingestion Change Supervision While Eating and Drinking for Safe Swallow: Intermittent Supervision Foods to Avoid: Too large pieces of food, Difficult to chew solids. Swallowing Recommended Treatments: Recommendation for Speech: Inpatient Speech Therapy Comment: Patient seen today on [facility] floor where he was transferred to earlier this week. ADMINISTRATION SPECIALIST was present for other patients, became aware that Patient was wretching into garbage container during the group lunch meal. RN commented it's a behavior. ADMINISTRATION SPECIALIST then encouraged patient to return to his table and tray that had two containers of tuna salad and a cup of coffee as his meal. Patient had apparently drank most of the coffee, then gone to [facility] to wretch it up. ADMINISTRATION SPECIALIST encouraged patient to take some bites of tuna fish, patient noted to take one bite, chew for a while, then attempted to add more food to mouth, which was discouraged. ADMINISTRATION SPECIALIST provided cuing to limit size of bites (at one point scooped a large amount but desisted from putting in mouth when cued. ADMINISTRATION SPECIALIST reminded patient of his esophageal stricture and motility issues, which he acknowledged, and strategies to use when eating. Patient repeatedly asking for food containers to be taken to room, which ADMINISTRATION SPECIALIST discouraged, encouraged patient to continue with meal. ADMINISTRATION SPECIALIST then went to speak to RN. During this, patient went to tra and again wretched, bringing up the consumed tuna fish (patient was still spitting out tuna fish as he moved away from [facility]). RN reported that patient had been without a bowel movement for an extended time, and speculated he was backed up. ADMINISTRATION SPECIALIST reviewed with RN patient's history of esophagitis/esophageal stricture, rationale for current diet recommendations and strategies. Unclear if current conduct is due to increased dysmotility, reactive behavior, or constipation. No change in diet recommended at this time, ADMINISTRATION SPECIALIST will continue to follow. Frequency/Duration: Date Range for Service Req: Timeline to reassess: Hybrid Car Mechanic Clinican/Clinical Fellow: No Supervisory Statement: I have reviewed and agree with the student/clinical fellow's documentation: N/A Speech Language Pathologist: Leighann Burns M.A., [facility]-ADMINISTRATION SPECIALIST
--- NOTE | 2024-12-10 17:48 | PC.NURSE ---
Yomi has been sexually inappropriate with staff Want to masturbate with me? when redirected he said fine I'll do it my self . Earlier was talking about sperm>
[2024-12-10 20:00] VITALS: BP 109/81; PULSE 104; RESP 16; TEMP 36.1; O2SAT 96
[2024-12-10] MEDS: OLANZapine 7.5 MG TABLET 15 MG PO (20:07)
[2024-12-10 20:08] VITALS: BP 109/81; PULSE 104
[2024-12-10 21:09] LABS: MANUAL DIFF FLAG NO
[2024-12-10 21:16] LABS: Ammonia 38 umol/L (13-55)
[2024-12-10 21:19] LABS: Hematocrit 36.2 % (42.0-52.0); Hemoglobin 11.9 g/dl (14.0-18.0); Imm Gran Abs Auto 0.01 X10*3/uL (0.00-0.03); Imm Gran Pct Auto 0.1 % (0.0-0.4); Lymphocytes Absolute Auto 2.7 X10*3/uL (1.2-4.9); Mean Corpuscular HGB Conc 32.9 g/dl (31.0-36.0); Mean Corpuscular Hemoglobin 30.0 pg (27.0-33.0); Mean Corpuscular Volume 91.2 fL (80.0-98.0); NRBC Abs Auto 0.000 X10*3/uL (0.0-0.012); NRBC Pct Auto 0.0 /100WBC (0.0-0.2); Platelet Count 168 X10*3/uL (160-400); Red Blood Count 3.97 X10*6/uL (4.60-5.80); White Blood Count 6.9 X10*3/uL (4.8-10.8)
[2024-12-10 21:25] LABS: Alanine Aminotransferase 37 U/L (0-40); Albumin Level 4.2 g/dL (3.5-5.0); Alkaline Phosphatase 56 U/L (39-117); Anion Gap 10 (12-20); Aspartate Amino Transferase 31 U/L (5-37); Blood Urea Nitrogen 12 mg/dL (9-16); Calcium 9.7 mg/dL (8.4-10.2); Carbon Dioxide 29 mmol/L (22-29); Chloride 106 mmol/L (96-108); Creatinine Clr Calc Pharmacy 68.1; Estimated Glomerular Filt Rate > 60; Potassium 4.8 mmol/L (3.3-5.1); Sodium 140 mmol/L (135-145); Total Protein 6.7 g/dL (6.5-8.0)
[2024-12-11] MEDS: Milk of Magnesia 30 ML ORAL.SUSP PO (02:02)
[2024-12-11 08:00] VITALS: BP 75/51; PULSE 80; O2SAT 98
[2024-12-11 09:16] LABS: Glucose, Whole Blood 102 mg/dL (60-115)
--- NOTE | 2024-12-11 13:50 | MHC.SL.SWA ---
Speech Pathologist Impression: Risk of Aspiration Due to: Dysphasia Diet Status: Pt is a 63 year-old make referred for a choking episode. On the day of the study he does not have his dentures present. He is not on a modified diet but reports that he does avoid vegetables with skin on them. Liquid Consistency and Strategies for Safe Swallow: Liquid Intake Recommendation: Thin Liquid Intake Strategies: Small Sips Solid Food Consistency: Dietary Recommendations: Chopped/Advanced (NDD3) Additional Modifications to Solid Foods: Patient requires cuing to keep bites small, may try to pack mouth or take too large bites, and gulp liquids. Encourage alternating liquids and solids. Oral Medication Intake: Whole with Puree Please contact the pharmacy regarding appropriate crushable or liquid drug formulations that are available whenever modified delivery is recommended. Compensatory Strategies and Precautions to be Taken for Safe Swallow: Sitting Upright (90 deg) Liquids from Cup Liquids from Straw Small Bites and Sips Alternate Liquids/Solids Rate of Ingestion Change Supervision While Eating and Drinking for Safe Swallow: Intermittent Supervision Foods to Avoid: Too large pieces of food, Difficult to chew solids. Swallowing Recommended Treatments: Recommendation for Speech: Inpatient Speech Therapy Comment: Patient seen at lunch today. Patient c/o not feeling good still constipated, no bowel movement for over four days. Patient reminded of eating strategies: small bites and sips, chew thoroughly, alternate liquids and solids. Patient then opened up tray, expressed distaste for the main meal, agreed to eat the soup and various purees (yogurt, jello, fruit puree). Patient began to eat soup, which he managed well. Patient cued to take individual sips from cup, which patient responded to. Patient continued to eat soup while [employer] moved to observe other patient. After a minute away, observed patient wandering, looking for a place to spit up liquids he just drank (may have downed things very quickly). PHD INTERNSHIP got patient to sit down, cued patient to take some deep breaths, which he did with assistance of the breathe jocelyn on phone. Patient then appeared to not have need to wretch, returned to meal and continued to eat with out further incident observed. Recommend continue on Chopped Diet, thin liquids, pills whole with puree. Patient needs supervision, redirections from attempts to wretch up foods, liquids, with breathing strategy noted to be effective today. Frequency/Duration: Date Range for Service Req: Timeline to reassess: Slate Cutter Clinican/Clinical Fellow: No Supervisory Statement: I have reviewed and agree with the student/clinical fellow's documentation: N/A Speech Language Pathologist: Leighann Burns M.A., CCC-[employer]
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
--- NOTE | 2024-12-11 15:15 | HO.PM.IMPN ---
Subjective Subjective Date of Service: 12/11/24 Interval History: As evaluate patient for difficulty voiding, his bladder scan was 604 and he was straight cathed for 650. Patient reports a history of catheter use but he is a poor historian. Noted to be on finasteride but not Flomax. No evidence of he has been seen by a urologist. He denies any shortness of breath, dizziness, he is ambulating in his room with steady gait. In no apparent distress. Denies any abdominal pain. Pleasant in good spirits. Blood pressure noted to be 75/51 this morning. Will DC metoprolol and follow up blood pressures Review of Systems Denies any shortness of breath, chest pain, dizziness, lightheadedness, abdominal pain or discomfort, nausea vomiting or diarrhea Physical Exam Exam: Exam: General: Alert and conversant. Head: Normacephalic, atraumatic ENT: oral mucosa moist, neck supple Cardiovascular: regular rate, regular rhythm Respiratory: CTAB, no wheeze, rales, rhonchi Gastrointestinal: Soft, non distended, non tender, non guarding Extremities: No calf swelling Neurological: Awake and alert, no facial droop noted. Ambulating with walker Skin: Warm and dry Psychiatric: Answering questions. Vital Signs: Vital Signs: Last Vital Signs Temp 97 F 12/10/24 20:00 Pulse 80 12/11/24 08:00 Resp 16 12/10/24 20:00 BP 75/51 L 12/11/24 08:00 Pulse Ox 98 12/11/24 08:00 O2 Del Method Room Air 12/10/24 20:00 BMI result Body Mass Index 33.9 Objective Data Active Medications Acetaminophen (Acetaminophen 325 Mg Tablet) 650 mg PO Q6H PRN PRN Reason: Headache/Pain, Scale 1-10 Last Admin: 12/09/24 20:52 Dose: 650 mg Documented By: LAISHA Al Hydroxide/Mg Hydroxide (Magnesium Hydrox/Alum Hydrox 30 Ml Oral.Susp) 30 ml PO Q6H PRN PRN Reason: Heartburn/Nausea Diazepam (Diazepam 2 Mg Tablet) 3 mg PO BID [facility] Divalproex Sodium (Divalproex Sodium Er 500 Mg Tab.Er.24h) 1,000 mg PO BEDTIME [facility] Last Admin: 12/10/24 20:06 Dose: 1,000 mg Documented By: RAMILA Divalproex Sodium (Divalproex Sodium 250 Mg Tablet.) 250 mg PO DAILY@1100 [facility] Last Admin: 12/11/24 11:58 Dose: 250 mg Documented By: BEULAH Divalproex Sodium (Divalproex Sodium Er 250 Mg Tab.Er.24h) 250 mg PO BEDTIME [facility] Docusate Sodium (Docusate Sodium 100 Mg Capsule) 100 mg PO BID PRN PRN Reason: Constipation Last Admin: 12/06/24 06:55 Dose: 100 mg Documented By: NANCY Docusate Sodium (Docusate Sodium 100 Mg Capsule) 100 mg PO BID [facility] Last Admin: 12/11/24 09:07 Dose: 100 mg Documented By: BEULAH Finasteride (Finasteride 5 Mg Tablet) 5 mg PO DAILY [facility] Last Admin: 12/11/24 09:07 Dose: 5 mg Documented By: BEULAH Hydroxyzine HCl (Hydroxyzine Hcl 25 Mg Tablet) 25 mg PO Q6H PRN PRN Reason: mild anxiety Last Admin: 12/10/24 14:34 Dose: 25 mg Documented By: BEULAH Magnesium Citrate (Magnesium Citrate 300 Ml Solution) 300 ml PO DAILY PRN PRN Reason: constipation Magnesium Hydroxide (Milk Of Magnesia 30 Ml Oral.Susp) 30 ml PO DAILY PRN PRN Reason: Constipation Last Admin: 12/11/24 02:02 Dose: 30 ml Documented By: RAMILA Metformin HCl (Metformin Hcl Er 500 Mg Tab.Er.24h) 500 mg PO BIDWM [facility] Last Admin: 12/11/24 09:07 Dose: 500 mg Documented By: BEULAH Metoprolol Tartrate (Metoprolol Tartrate 25 Mg Tablet) 25 mg PO BID [facility]; Protocol Last Admin: 12/11/24 09:07 Dose: 25 mg Documented By: BEULAH Nicotine Polacrilex (Nicotine Polacrilex 2 Mg Gum) 4 mg BUCCAL Q2H PRN PRN Reason: Nicotine Cravings Olanzapine (Olanzapine 5 Mg Tablet) 5 mg PO TID PRN PRN Reason: agitation Last Admin: 12/10/24 14:34 Dose: 5 mg Documented By: BEULAH Olanzapine (Olanzapine 10 Mg Tablet) 10 mg PO BEDTIME [facility] Omeprazole (Omeprazole 20 Mg Capsule.) 20 mg PO DAILY@0630 [facility] Last Admin: 12/11/24 05:42 Dose: 20 mg Documented By: NICO Senna (Sennosides 8.6 Mg Tablet) 17.2 mg PO BEDTIME [facility] Last Admin: 12/10/24 20:07 Dose: 17.2 mg Documented By: RAMILA Trazodone HCl (Trazodone Hcl 50 Mg Tablet) 50 mg PO BEDTIME MRX1 PRN PRN Reason: Insomnia Last Admin: 12/11/24 02:11 Dose: 50 mg Documented By: RAMILA Vitamin D (Cholecalciferol (Vitamin D3) 25 Mcg Tablet) 25 mcg PO DAILY [facility] Last Admin: 12/11/24 09:08 Dose: 25 mcg Documented By: HENNALINK Labs 12/10/24 21:06 12/10/24 21:06 Labs: Laboratory Results - last 24 hr 12/10/24 12/10/24 12/11/24 21:05 21:06 09:05 MCV 91.2 MCH 30.0 MCHC 32.9 RDW 15.3 Plt Count 168 MPV 8.9 L Immature Gran % (Auto) 0.1 Neut % (Auto) 44.7 L Lymph % (Auto) 39.0 [place] % (Auto) 11.8 H Eos % (Auto) 3.8 Baso % (Auto) 0.6 Lymph # (Auto) 2.7 [place] # (Auto) 0.8 Eos # (Auto) 0.3 Baso # (Auto) 0.0 Abs Immat Gran (auto) 0.01 Absolute Neuts (auto) 3.1 Absolute Nucleated RBC 0.000 Nucleated RBC % (auto) 0.0 Anion Gap 10 L Estim Creat Clear Calc 68.1 Estimated GFR > 60 POC Glucose 102 Random Glucose 98 Calcium 9.7 D Total Bilirubin 0.3 Direct Bilirubin 0.1 AST 31 ALT 37 Alkaline Phosphatase 56 Ammonia 38 Total Protein 6.7 Albumin 4.2 Valproic Acid 55.2 Assessment and Plan (1) BPH w urinary obs/LUTS: Status: Acute Plan 64-year-old male with a past medical history of schizoaffective disorder, bipolar type, depression, seizure disorder, type 2 diabetes, hypertension, BPH, and history of esophageal stricture initially presents to the ED with shortness of breath, his chest x-ray was negative, and he had unusual behavioral pattern responding to internal stimuli. He was admitted to inpatient psych for further care. Schizoaffective disorder, bipolar type/Depression/auditory hallucinations/delusions Treatment per psychiatric team BPH/Urinary retention Continue Proscar, add Flomax Urology consult Bladder scan Q 6 hours SC greater than 350 Seizure disorder Continue Depakote Seizure precautions History of esophageal stricture Seen by [facility] Recommendations to downgrade diet to NDD3 with thin liquids Type 2 diabetes Continue with metformin Recent A1c 7.6 Hypertension DC metoprolol and monitor Blood pressures. Notify provider with elevated readings Thank you for allowing me to participate in the care of this patient. Will follow as needed, please notify medical provider with any changes in condition or concerns Quality Stroke Does the patient have a stroke diagnosis?: No VTE Prior VTE?: No VTE Risk Level:: Medical - low VTE Device Contraindication: Treatment Not Indicated VTE Drug Contraindication: Treatment Not Indicated
[2024-12-11 20:00] VITALS: BP 117/58; PULSE 88; RESP 18; TEMP 36; O2SAT 97
[2024-12-11] MEDS: Divalproex Sodium ER 250 MG TAB.ER.24H PO (20:04)
[2024-12-12 06:25] LABS: Glucose, Whole Blood 102 mg/dL (60-115)
[2024-12-12 08:00] VITALS: BP 121/69; PULSE 106; RESP 16; TEMP 36.3; O2SAT 94
--- NOTE | 2024-12-12 12:41 | PC.NURSE ---
Bladder scan done at 1215. Patient unable to void prior to scan. [address] cath done. 650 ml's of urine output. Patient tolerated well.
--- NOTE | 2024-12-12 14:09 | P.PNPSI_ITS ---
Subjective Subjective Date of Service: 12/12/24 Reason For Visit: Psychosis Subjective Notes: Conditional Voluntary Healthcare Proxy: No Guardianship: No Interim History: 64 yo with blake, xs talking, and alt laughing /crying report- taking meds , nursing reports bladdera scan 718 and 650 cc was cathed out kub yesterday showed full of stool- Pt reports he has had several stools today but full of stool- agreed to ducolax will also write for lactulose Medication Compliance: Yes Side effects from medications: Yes (constipation) Review of Systems as stated above Review of Systems Review of Systems continued feeling of stool in abd clearly uncomfortable Mental Status Exam Mental Status Exam Patient Appearance: Disheveled and Unkempt Patient Orientation: Person and Place Level of Consciousness: Awake Patient Behavior: Restless Mood Description: Constricted and Nervous Affect Description: Blunted Ability to Follow Directions: Fair Speech Pattern: Impoverished Thought Content: positive for Intact Judgement and Insight: focused on medical issues due to discomfort- Diagnostics Vital Signs (24Hr): Vital Signs - 24 hr 12/11/24 20:00 12/12/24 08:00 Temperature 96.8 F 97.3 F Pulse Rate 88 106 H Respiratory Rate 18 16 Blood Pressure 117/58 L 121/69 Pulse Oximetry 97 94 Oxygen Delivery Method Room Air Room Air BMI result Body Mass Index 33.9 Labs 12/10/24 21:06 12/10/24 21:06 Labs: Laboratory Results - last 48 hr 12/10/24 12/10/24 12/11/24 21:05 21:06 09:05 WBC 6.9 RBC 3.97 L Hgb 11.9 L Hct 36.2 L MCV 91.2 MCH 30.0 MCHC 32.9 RDW 15.3 Plt Count 168 MPV 8.9 L Immature Gran % (Auto) 0.1 Neut % (Auto) 44.7 L Lymph % (Auto) 39.0 [place] % (Auto) 11.8 H Eos % (Auto) 3.8 Baso % (Auto) 0.6 Lymph # (Auto) 2.7 [place] # (Auto) 0.8 Eos # (Auto) 0.3 Baso # (Auto) 0.0 Abs Immat Gran (auto) 0.01 Absolute Neuts (auto) 3.1 Absolute Nucleated RBC 0.000 Nucleated RBC % (auto) 0.0 Sodium 140 Potassium 4.8 Chloride 106 Carbon Dioxide 29 Anion Gap 10 L BUN 12 Creatinine 1.16 Estim Creat Clear Calc 68.1 Estimated GFR > 60 POC Glucose 102 Random Glucose 98 Calcium 9.7 D Total Bilirubin 0.3 Direct Bilirubin 0.1 AST 31 ALT 37 Alkaline Phosphatase 56 Ammonia 38 Total Protein 6.7 Albumin 4.2 Valproic Acid 55.2 12/12/24 06:05 WBC RBC Hgb Hct MCV MCH MCHC RDW Plt Count MPV Immature Gran % (Auto) Neut % (Auto) Lymph % (Auto) [place] % (Auto) Eos % (Auto) Baso % (Auto) Lymph # (Auto) [place] # (Auto) Eos # (Auto) Baso # (Auto) Abs Immat Gran (auto) Absolute Neuts (auto) Absolute Nucleated RBC Nucleated RBC % (auto) Sodium Potassium Chloride Carbon Dioxide Anion Gap BUN Creatinine Estim Creat Clear Calc Estimated GFR POC Glucose 102 Random Glucose Calcium Total Bilirubin Direct Bilirubin AST ALT Alkaline Phosphatase Ammonia Total Protein Albumin Valproic Acid Imaging Radiology Impressions: ITS Impressions KUB X-Ray 12/11/24 13:58 IMPRESSION: Abundant stool without intestinal obstruction pattern. Electronically signed by: Mani Hay MD 12/11/2024 02:18 PM EDT RP Medications Medications Current Medications Acetaminophen (Acetaminophen 325 Mg Tablet) 650 mg PO Q6H PRN PRN Reason: Headache/Pain, Scale 1-10 Last Admin: 12/09/24 20:52 Dose: 650 mg Al Hydroxide/Mg Hydroxide (Magnesium Hydrox/Alum Hydrox 30 Ml Oral.Susp) 30 ml PO Q6H PRN PRN Reason: Heartburn/Nausea Diazepam (Diazepam 2 Mg Tablet) 3 mg PO BID COUNT INCLUDES THE [facility] Last Admin: 12/12/24 08:16 Dose: 3 mg Divalproex Sodium (Divalproex Sodium Er 500 Mg Tab.Er.24h) 1,000 mg PO BEDTIME COUNT INCLUDES THE [facility] Last Admin: 12/11/24 20:05 Dose: 1,000 mg Divalproex Sodium (Divalproex Sodium 250 Mg Tablet.Dr) 250 mg PO DAILY@1100 COUNT INCLUDES THE [facility] Last Admin: 12/12/24 11:18 Dose: 250 mg Divalproex Sodium (Divalproex Sodium Er 250 Mg Tab.Er.24h) 250 mg PO BEDTIME COUNT INCLUDES THE [facility] Last Admin: 12/11/24 20:04 Dose: 250 mg Docusate Sodium (Docusate Sodium 100 Mg Capsule) 100 mg PO BID PRN PRN Reason: Constipation Last Admin: 12/06/24 06:55 Dose: 100 mg Docusate Sodium (Docusate Sodium 100 Mg Capsule) 100 mg PO BID COUNT INCLUDES THE [facility] Last Admin: 12/12/24 08:17 Dose: 100 mg Finasteride (Finasteride 5 Mg Tablet) 5 mg PO DAILY COUNT INCLUDES THE [facility] Last Admin: 12/12/24 08:17 Dose: 5 mg Hydroxyzine HCl (Hydroxyzine Hcl 25 Mg Tablet) 25 mg PO Q6H PRN PRN Reason: mild anxiety Last Admin: 12/10/24 14:34 Dose: 25 mg Magnesium Citrate (Magnesium Citrate 300 Ml Solution) 300 ml PO DAILY PRN PRN Reason: constipation Magnesium Hydroxide (Milk Of Magnesia 30 Ml Oral.Susp) 30 ml PO DAILY PRN PRN Reason: Constipation Last Admin: 12/11/24 02:02 Dose: 30 ml Metformin HCl (Metformin Hcl Er 500 Mg Tab.Er.24h) 500 mg PO BIDWM COUNT INCLUDES THE [facility] Last Admin: 12/12/24 08:16 Dose: 500 mg Nicotine Polacrilex (Nicotine Polacrilex 2 Mg Gum) 4 mg BUCCAL Q2H PRN PRN Reason: Nicotine Cravings Olanzapine (Olanzapine 5 Mg Tablet) 5 mg PO TID PRN PRN Reason: agitation Last Admin: 12/10/24 14:34 Dose: 5 mg Olanzapine (Olanzapine 10 Mg Tablet) 10 mg PO BEDTIME COUNT INCLUDES THE [facility] Last Admin: 12/11/24 20:05 Dose: 10 mg Omeprazole (Omeprazole 20 Mg Capsule.Dr) 20 mg PO DAILY@0630 COUNT INCLUDES THE [facility] Last Admin: 12/12/24 06:06 Dose: 20 mg Senna (Sennosides 8.6 Mg Tablet) 17.2 mg PO BEDTIME COUNT INCLUDES THE [facility] Last Admin: 12/11/24 20:04 Dose: 17.2 mg Tamsulosin HCl (Tamsulosin Hcl 0.4 Mg Capsule) 0.4 mg PO BEDTIME COUNT INCLUDES THE [facility] Last Admin: 12/11/24 20:05 Dose: 0.4 mg Trazodone HCl (Trazodone Hcl 50 Mg Tablet) 50 mg PO BEDTIME MRX1 PRN PRN Reason: Insomnia Last Admin: 12/11/24 02:11 Dose: 50 mg Vitamin D (Cholecalciferol (Vitamin D3) 25 Mcg Tablet) 25 mcg PO DAILY [facility] Last Admin: 12/12/24 08:16 Dose: 25 mcg Allergies Allergies Allergy/AdvReac Type Severity Reaction Status Date / Time haloperidol (From HALDOL) Allergy Unknown UNKNOWN Verified 12/01/24 22:33 adhesive tape AdvReac Unknown Rash Verified 12/01/24 22:33 Helidac Allergy Unknown seizure Uncoded 12/01/24 22:33 and stiffness Assessment & Plan Assessment & Plan (1) BPH w urinary obs/LUTS: Status: Acute Code(s): N40.1 - Benign prostatic hyperplasia with lower urinary tract symptoms; N13.8 - Other obstructive and reflux uropathy (2) Constipation: Status: Acute Code(s): K59.00 - Constipation, unspecified (3) Schizoaffective disorder, bipolar type: Status: Acute Code(s): F25.0 - Schizoaffective disorder, bipolar type Plan 64-year-old male with a past medical history of schizoaffective disorder, bipolar type, depression, seizure disorder, type 2 diabetes, hypertension, BPH, and history of esophageal stricture initially presents to the ED with shortness of breath, his chest x-ray was negative, and he had unusual behavioral pattern responding to internal stimuli. He was admitted to inpatient psych for further care. Schizoaffective disorder, bipolar type/Depression/auditory hallucinations/delusions Treatment per psychiatric team BPH/Urinary retention Continue Proscar, add Flomax Urology consult Bladder scan Q 6 hours SC greater than 350 Seizure disorder Continue Depakote Seizure precautions History of esophageal stricture Seen by LINE WORKER Recommendations to downgrade diet to NDD3 with thin liquids Type 2 diabetes Continue with metformin Recent A1c 7.6 Hypertension DC metoprolol and monitor Blood pressures. Notify provider with elevated readings Thank you for allowing me to participate in the care of this patient. Will follow as needed, please notify medical provider with any changes in condition or concerns Patient educated on: medical condition Informed Consent: understands Reason for continued inpatient stay Substantial Risk for: med/psych decompensation Time Spent With Patient Time: Total time managing care of this patient today ____ minutes.
[2024-12-12 20:00] VITALS: BP 138/75; PULSE 115; RESP 17; TEMP 36.9; O2SAT 95
[2024-12-12] MEDS: Divalproex Sodium ER 250 MG TAB.ER.24H PO (21:22)
[2024-12-13 06:53] LABS: Glucose, Whole Blood 130 mg/dL (60-115)
--- NOTE | 2024-12-13 07:23 | HO.PSYCHPN ---
Subjective Subjective Date of Service: 12/13/24 Reason For Visit: Psychosis Subjective Notes: Conditional Voluntary Interim History: 64 yo seen hobbling from room , groaning and holding arm to right flank- co kidney pain- walked with pt toward nursing station so he could get some tylenol- sat in chair in kitchen- nursing had him get bladder scan- Later he asked me if I had seen him on TV says he was interviewed by news about mental health. - Pt was able to get cleaned out yesterday- having need significant bowel regimen- suspect his side pain is from being in bed or in br all day yesterday- seems much more like himself today Medication Compliance: Yes Side effects from medications: Yes (? constipation- will now need regiment to keep regular ) Attending Groups: Intermittent Review of Systems Acute medical concerns: No Medical Review of Systems: changed Review of Systems: bowel cleaned out, ongoing bladder issues Mental Status Exam Mental Status Exam Narrative: dressed in monty and showered less unkempt than yesterday Patient Orientation: Person and Place Level of Consciousness: Awake Patient Behavior: Dependent, Passive and Good Eye Contact Mood Description: Calm (when not in pain/walking - ) Affect Description: Blunted Ability to Follow Directions: Fair Speech Pattern: Clear Hallucinations: None Thought Process: Intact Thought Content: positive for Goal Oriented and positive for Logical Depressive Symptoms: Back Pain Judgement: Fair Diagnostics Vital Signs (24Hr): Vital Signs - 24 hr 12/12/24 08:00 12/12/24 20:00 Temperature 97.3 F 98.4 F Pulse Rate 106 H 115 H Respiratory Rate 16 17 Blood Pressure 121/69 138/75 Pulse Oximetry 94 95 Oxygen Delivery Method Room Air Room Air BMI result Body Mass Index 33.9 Labs 12/10/24 21:06 12/10/24 21:06 Labs: Laboratory Results - last 48 hr 12/11/24 12/12/24 12/13/24 09:05 06:05 06:45 POC Glucose 102 102 130 H Imaging Radiology Impressions: ITS Impressions KUB X-Ray 12/11/24 13:58 IMPRESSION: Abundant stool without intestinal obstruction pattern. Electronically signed by: Mani Hay MD 12/11/2024 02:18 PM EDT Medications Medications Current Medications Acetaminophen (Acetaminophen 325 Mg Tablet) 650 mg PO Q6H PRN PRN Reason: Headache/Pain, Scale 1-10 Last Admin: 12/09/24 20:52 Dose: 650 mg Al Hydroxide/Mg Hydroxide (Magnesium Hydrox/Alum Hydrox 30 Ml Oral.Susp) 30 ml PO Q6H PRN PRN Reason: Heartburn/Nausea Diazepam (Diazepam 2 Mg Tablet) 3 mg PO BID [facility] Last Admin: 12/12/24 21:22 Dose: 3 mg Divalproex Sodium (Divalproex Sodium Er 500 Mg Tab.Er.24h) 1,000 mg PO BEDTIME [facility] Last Admin: 12/12/24 21:22 Dose: 1,000 mg Divalproex Sodium (Divalproex Sodium 250 Mg Tablet.Dr) 250 mg PO DAILY@1100 [facility] Last Admin: 12/12/24 11:18 Dose: 250 mg Divalproex Sodium (Divalproex Sodium Er 250 Mg Tab.Er.24h) 250 mg PO BEDTIME [facility] Last Admin: 12/12/24 21:22 Dose: 250 mg Docusate Sodium (Docusate Sodium 100 Mg Capsule) 100 mg PO BID PRN PRN Reason: Constipation Last Admin: 12/06/24 06:55 Dose: 100 mg Docusate Sodium (Docusate Sodium 100 Mg Capsule) 100 mg PO BID [facility] Last Admin: 12/12/24 21:22 Dose: 100 mg Finasteride (Finasteride 5 Mg Tablet) 5 mg PO DAILY [facility] Last Admin: 12/12/24 08:17 Dose: 5 mg Hydroxyzine HCl (Hydroxyzine Hcl 25 Mg Tablet) 25 mg PO Q6H PRN PRN Reason: mild anxiety Last Admin: 12/10/24 14:34 Dose: 25 mg Magnesium Citrate (Magnesium Citrate 300 Ml Solution) 300 ml PO DAILY PRN PRN Reason: constipation Magnesium Hydroxide (Milk Of Magnesia 30 Ml Oral.Susp) 30 ml PO DAILY PRN PRN Reason: Constipation Last Admin: 12/11/24 02:02 Dose: 30 ml Metformin HCl (Metformin Hcl Er 500 Mg Tab.Er.24h) 500 mg PO BIDWM [facility] Last Admin: 12/12/24 16:31 Dose: 500 mg Nicotine Polacrilex (Nicotine Polacrilex 2 Mg Gum) 4 mg BUCCAL Q2H PRN PRN Reason: Nicotine Cravings Olanzapine (Olanzapine 5 Mg Tablet) 5 mg PO TID PRN PRN Reason: agitation Last Admin: 12/10/24 14:34 Dose: 5 mg Olanzapine (Olanzapine 10 Mg Tablet) 10 mg PO BEDTIME [facility] Last Admin: 12/12/24 21:23 Dose: 10 mg Omeprazole (Omeprazole 20 Mg Capsule.Dr) 20 mg PO DAILY@0630 [facility] Last Admin: 12/13/24 06:16 Dose: 20 mg Senna (Sennosides 8.6 Mg Tablet) 17.2 mg PO BEDTIME [facility] Last Admin: 12/12/24 21:22 Dose: 17.2 mg Tamsulosin HCl (Tamsulosin Hcl 0.4 Mg Capsule) 0.4 mg PO BEDTIME [facility] Last Admin: 12/12/24 21:23 Dose: 0.4 mg Trazodone HCl (Trazodone Hcl 50 Mg Tablet) 50 mg PO BEDTIME MRX1 PRN PRN Reason: Insomnia Last Admin: 12/11/24 02:11 Dose: 50 mg Vitamin D (Cholecalciferol (Vitamin D3) 25 Mcg Tablet) 25 mcg PO DAILY [facility] Last Admin: 12/12/24 08:16 Dose: 25 mcg Allergies Allergies Allergy/AdvReac Type Severity Reaction Status Date / Time haloperidol (From HALDOL) Allergy Unknown UNKNOWN Verified 12/01/24 22:33 adhesive tape AdvReac Unknown Rash Verified 12/01/24 22:33 Helidac Allergy Unknown seizure Uncoded 12/01/24 22:33 and stiffness Assessment & Plan Assessment & Plan (1) BPH w urinary obs/LUTS: Status: Acute Code(s): N40.1 - Benign prostatic hyperplasia with lower urinary tract symptoms; N13.8 - Other obstructive and reflux uropathy (2) Constipation: Status: Acute Code(s): K59.00 - Constipation, unspecified (3) Schizoaffective disorder, bipolar type: Status: Acute Code(s): F25.0 - Schizoaffective disorder, bipolar type Plan 64-year-old male with a past medical history of schizoaffective disorder, bipolar type, depression, seizure disorder, type 2 diabetes, hypertension, BPH, and history of esophageal stricture initially presents to the ED with shortness of breath, his chest x-ray was negative, and he had unusual behavioral pattern responding to internal stimuli. He was admitted to inpatient psych for further care. Schizoaffective disorder, bipolar type/Depression/auditory hallucinations/delusions Treatment per psychiatric team BPH/Urinary retention Continue Proscar, add Flomax Urology consult Bladder scan Q 6 hours SC greater than 350 Seizure disorder Continue Depakote Seizure precautions History of esophageal stricture Seen by MACHINE LEAD BURNER Recommendations to downgrade diet to NDD3 with thin liquids Type 2 diabetes Continue with metformin Recent A1c 7.6 Hypertension DC metoprolol and monitor Blood pressures. Notify provider with elevated readings Thank you for allowing me to participate in the care of this patient. Will follow as needed, please notify medical provider with any changes in condition or concerns Patient educated on: medication risk/benefits Informed Consent: further education needed (about attending to bowel regimen with medication s/e) Reason for continued inpatient stay Substantial Risk for: rapid decompensation Time Spent With Patient Time: Total time managing care of this patient today ____ minutes.
[2024-12-13 07:54] VITALS: BP 112/64; PULSE 108; RESP 16; TEMP 37; O2SAT 94
--- NOTE | 2024-12-13 12:41 | PC.NURSE ---
bladder scan done at 1220. Patient voided prior to scan but did not save. Scanned for 381. St cath for 350.
--- NOTE | 2024-12-13 15:46 | PC.NURSE ---
At approximately 1500 [facility] Stephanie reported that patient had slipped getting out of bed earlier in the day. Patient denies that he slipped/fell. When asked why she did not report incident when it happened [facility] stated that she was told previously not to involve herself with patients she is not responsible for. Will continue to monitor patient.
[2024-12-13 20:00] VITALS: BP 106/67; PULSE 94; RESP 16; TEMP 36.6; O2SAT 94
[2024-12-13] MEDS: Divalproex Sodium ER 250 MG TAB.ER.24H PO (20:45)
--- NOTE | 2024-12-14 | ECG_ITS ---
Test Reason : tachycardia Blood Pressure : */* mmHG Vent. Rate : 103 BPM Atrial Rate : 103 BPM P-R Int : 140 ms QRS Dur : 120 ms QT Int : 362 ms P-R-T Axes : 46 -37 39 degrees QTcB Int : 474 ms Sinus tachycardia Left axis deviation Low voltage QRS Right bundle branch block Inferior infarct (cited on or before 17-Dec-2017) Abnormal ECG When compared with ECG of 01-Dec-2024 22:27, QRS duration has decreased Referred By: Pau Springer Electronically Signed By: JOANNA CLARK
[2024-12-14 06:37] LABS: Glucose, Whole Blood 133 mg/dL (60-115)
[2024-12-14 08:27] VITALS: BP 110/75; PULSE 109; RESP 20; TEMP 36.7; O2SAT 95
--- NOTE | 2024-12-14 10:21 | PM.EVENT ---
Event Note Date of Service: 12/14/24 Event Note: Since metoprolol DC due to hypotension, review vital signs over the weekend patient noted to be tachycardic. We will restart metoprolol at a lower dose 12.5 mg b.i.d. continue to monitor BP and pulse and notify provider with any changes Time Spent With Patient Time: Total time managing care of this patient today ____ minutes.
[2024-12-14 10:46] LABS: Alanine Aminotransferase 28 U/L (0-40); Albumin Level 3.8 g/dL (3.5-5.0); Alkaline Phosphatase 47 U/L (39-117); Anion Gap 13 (12-20); Aspartate Amino Transferase 32 U/L (5-37); Blood Urea Nitrogen 11 mg/dL (9-16); Calcium 9.2 mg/dL (8.4-10.2); Carbon Dioxide 26 mmol/L (22-29); Chloride 108 mmol/L (96-108); Creatinine Clr Calc Pharmacy 73.1; Estimated Glomerular Filt Rate > 60; Potassium 4.6 mmol/L (3.3-5.1); Sodium 142 mmol/L (135-145); Total Protein 6.6 g/dL (6.5-8.0)
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
--- NOTE | 2024-12-14 11:43 | HO.PM.IMPN ---
Subjective Subjective Date of Service: 12/14/24 Interval History: Patient is seen for tachycardia as well as right flank pain. Patient history of renal cell carcinoma. On exam he reports some tenderness to right flank area, reports that he has had this pain before. Patient has been intermittently straight catheterization due to urinary retention. Also receiving bowel medications due to constipation which may be contributing to his pain. He is slightly tachycardic, his metoprolol was previously DC due to hypotension, EKG demonstrates sinus tach. He denies any shortness of breath, dizziness lightheadedness visual changes headaches or any other concerning symptoms. Denies any burning with urination. Blood pressure improved. Oxygenation within normal limits. He has any chest pain or shortness of breath. Denies any abdominal pain. Review of Systems Denies any shortness of breath, chest pain, dizziness, lightheadedness, abdominal pain or discomfort, nausea vomiting or diarrhea Physical Exam Exam: Exam: CONST: Alert and oriented, in NAD. Well nourished. In good spirits HEENT: Normocephalic, atraumatic, MMM, Eyes clear, Neck supple RESP: Lungs clear, RRR even and regular HEART:,RRR, S1, S2. No edema GI:Abdomen Soft NT, ND. + BS times four :Deferred SKIN: Warm dry and intact, no visible lesions or rashes NEURO:CN II-XII Intact bilaterally, Sensation intact. Speech clear PSYCH: Normal affect Vital Signs: Vital Signs: Last Vital Signs Temp 98.1 F 12/14/24 08:27 Pulse 109 H 12/14/24 08:27 Resp 20 12/14/24 08:27 BP 110/75 12/14/24 08:27 Pulse Ox 95 12/14/24 08:27 O2 Del Method Room Air 12/14/24 08:27 BMI result Body Mass Index 33.9 Objective Data Active Medications Acetaminophen (Acetaminophen 325 Mg Tablet) 650 mg PO Q6H PRN PRN Reason: Headache/Pain, Scale 1-10 Last Admin: 12/14/24 10:01 Dose: 650 mg Documented By: MARY Al Hydroxide/Mg Hydroxide (Magnesium Hydrox/Alum Hydrox 30 Ml Oral.Susp) 30 ml PO Q6H PRN PRN Reason: Heartburn/Nausea Diazepam (Diazepam 2 Mg Tablet) 3 mg PO BID [facility] Last Admin: 12/14/24 08:30 Dose: 3 mg Documented By: MARY Divalproex Sodium (Divalproex Sodium Er 500 Mg Tab.Er.24h) 1,000 mg PO BEDTIME [facility] Last Admin: 12/13/24 20:47 Dose: 1,000 mg Documented By: JOHANN Divalproex Sodium (Divalproex Sodium 250 Mg Tablet.Dr) 250 mg PO DAILY@1100 [facility] Last Admin: 12/14/24 11:35 Dose: 250 mg Documented By: MARY Divalproex Sodium (Divalproex Sodium Er 250 Mg Tab.Er.24h) 250 mg PO BEDTIME [facility] Last Admin: 12/13/24 20:45 Dose: 250 mg Documented By: JOHANN Docusate Sodium (Docusate Sodium 100 Mg Capsule) 100 mg PO BID PRN PRN Reason: Constipation Last Admin: 12/06/24 06:55 Dose: 100 mg Documented By: NANCY Docusate Sodium (Docusate Sodium 100 Mg Capsule) 100 mg PO BID [facility] Last Admin: 12/14/24 08:31 Dose: 100 mg Documented By: MARY Finasteride (Finasteride 5 Mg Tablet) 5 mg PO DAILY [facility] Last Admin: 12/14/24 08:33 Dose: 5 mg Documented By: MARY Hydroxyzine HCl (Hydroxyzine Hcl 25 Mg Tablet) 25 mg PO Q6H PRN PRN Reason: mild anxiety Last Admin: 12/10/24 14:34 Dose: 25 mg Documented By: BEULAH Magnesium Citrate (Magnesium Citrate 300 Ml Solution) 300 ml PO DAILY PRN PRN Reason: constipation Magnesium Hydroxide (Milk Of Magnesia 30 Ml Oral.Susp) 30 ml PO DAILY PRN PRN Reason: Constipation Last Admin: 12/11/24 02:02 Dose: 30 ml Documented By: RAMILA Metformin HCl (Metformin Hcl Er 500 Mg Tab.Er.24h) 500 mg PO BIDWM [facility] Last Admin: 12/14/24 08:30 Dose: 500 mg Documented By: MARY Metoprolol Tartrate (Metoprolol Tartrate 12.5 Mg Halftab) 12.5 mg PO BID [facility]; Protocol Nicotine Polacrilex (Nicotine Polacrilex 2 Mg Gum) 4 mg BUCCAL Q2H PRN PRN Reason: Nicotine Cravings Olanzapine (Olanzapine 5 Mg Tablet) 5 mg PO TID PRN PRN Reason: agitation Last Admin: 12/13/24 12:58 Dose: 5 mg Documented By: NEGRO Olanzapine (Olanzapine 10 Mg Tablet) 10 mg PO BEDTIME [facility] Last Admin: 12/13/24 20:47 Dose: 10 mg Documented By: JOHANN Omeprazole (Omeprazole 20 Mg Capsule.Dr) 20 mg PO DAILY@0630 [facility] Last Admin: 12/14/24 06:06 Dose: 20 mg Documented By: JOHANN Senna (Sennosides 8.6 Mg Tablet) 17.2 mg PO BEDTIME [facility] Last Admin: 12/13/24 20:47 Dose: 17.2 mg Documented By: JOHANN Tamsulosin HCl (Tamsulosin Hcl 0.4 Mg Capsule) 0.4 mg PO BEDTIME [facility] Last Admin: 12/13/24 20:46 Dose: 0.4 mg Documented By: JOHANN Trazodone HCl (Trazodone Hcl 50 Mg Tablet) 50 mg PO BEDTIME MRX1 PRN PRN Reason: Insomnia Last Admin: 12/11/24 02:11 Dose: 50 mg Documented By: RAMILA Vitamin D (Cholecalciferol (Vitamin D3) 25 Mcg Tablet) 25 mcg PO DAILY [facility] Last Admin: 12/14/24 08:31 Dose: 25 mcg Documented By: MARY Labs 12/10/24 21:06 12/14/24 10:17 Labs: Laboratory Results - last 24 hr 12/14/24 12/14/24 06:33 10:17 Anion Gap 13 Estim Creat Clear Calc 73.1 Estimated GFR > 60 POC Glucose 133 H Random Glucose 135 H Calcium 9.2 Total Bilirubin 0.4 AST 32 ALT 28 Alkaline Phosphatase 47 Total Protein 6.6 Albumin 3.8 Assessment and Plan (1) BPH w urinary obs/LUTS: Status: Acute (2) Flank pain: Status: Acute (3) Renal mass: Status: Acute Plan 64-year-old male with a past medical history of schizoaffective disorder, bipolar type, depression, renal cell carcinoma seizure disorder, type 2 diabetes, hypertension, BPH, and history of esophageal stricture initially presents to the ED with shortness of breath, his chest x-ray was negative, and he had unusual behavioral pattern responding to internal stimuli. He was admitted to inpatient psych for further care. Seen today for tachycardia and flank pain. Schizoaffective disorder, bipolar type/Depression/auditory hallucinations/delusions Treatment per psychiatric team Flank pain Labs stable, no evidence of renal or liver insult UA for C&S, Urine for cytology Renal ultrasound demonstrates an enlarging right renal mass now 13 x 14 x 15 mm previously 7 x 7 x 7. Renal protocol CT ordered with and without contrast to further evaluation Continue bladder scans and treatment for constipation. Ultram 25 mg q.6 hours p.r.n. moderate pain BPH/Urinary retention/History of renal cell carcinoma Continue Proscar and Flomax Urology consult pending Bladder scan Q 6 hours SC greater than 350 Sinus tach EKG demonstrates sinus tach with no ischemic changes. Metoprolol recently DC due to low BP, we will add in lower dose due to hypotension He is asymptomatic Seizure disorder Continue Depakote Seizure precautions History of esophageal stricture Seen by IUSS MASTER ANALYST Recommendations to downgrade diet to NDD3 with thin liquids Type 2 diabetes Continue with metformin Recent A1c 7.6 Hypertension DC metoprolol and monitor Blood pressures. Notify provider with elevated readings Thank you for allowing me to participate in the care of this patient. Will follow as needed, please notify medical provider with any changes in condition or concerns Quality Stroke Does the patient have a stroke diagnosis?: No VTE Prior VTE?: No VTE Risk Level:: Medical - low VTE Device Contraindication: Treatment Not Indicated VTE Drug Contraindication: Treatment Not Indicated
[2024-12-14 12:02] VITALS: BP 132/79; PULSE 112; O2SAT 95
[2024-12-14] MEDS: Metoprolol Tartrate 12.5 MG HALFTAB PO ×2 (12:05→20:51)
--- NOTE | 2024-12-14 15:29 | MHC.SLORD ---
Speech Language Pathology Order Status: FOREST WORKER informed DRY PASTE SUPERVISOR lunch was already over when DRY PASTE SUPERVISOR arrived to floor at noon. No concerns reported with pt PO tolerance. DRY PASTE SUPERVISOR to follow up as indicated.
[2024-12-14] MEDS: iohexoL 350 MG/ML 100 ML INFUS..BTL IV (15:36)
[2024-12-14 20:00] VITALS: BP 123/76; PULSE 96; RESP 16; TEMP 36.2; O2SAT 94
[2024-12-14] MEDS: Divalproex Sodium ER 250 MG TAB.ER.24H PO (20:51)
[2024-12-15 06:30] LABS: Glucose, Whole Blood 88 mg/dL (60-115)
[2024-12-15 08:00] VITALS: BP 116/78; PULSE 90; RESP 16; TEMP 36.3; O2SAT 93
--- NOTE | 2024-12-15 09:08 | HO.PM.IMPN ---
Subjective Subjective Date of Service: 12/15/24 Interval History: Patient is seen for follow up tachycardia and recent imaging and urinary retention. Patient bladder scanning have improved, less residual and has been able to void. Patient had a recent renal ultrasound which showed an enlarged mass in the right kidney. Patient has a history of renal cell carcinoma, recommended CT performed with and without contrast revealed 2 enhancing masses in the equatorial region of the right kidney concerning for renal cell carcinoma. Urine cytology pending. Urologist consulted we will see patient, await recommendations. Patient was restarted on a lower dose of metoprolol. His blood pressures improved, he denies any dizziness this morning. Pulse rate under 100. We will continue to monitor. Patient has tramadol ordered for pain, continues to report right flank pain this morning. Nursing has been giving Tylenol which is not helping. We will try tramadol this morning. He otherwise feels well, sitting at the table eating his breakfast. Denies any appetite changes, shortness of breath, chest pain or other concerns. Review of Systems Denies any shortness of breath, chest pain, dizziness, lightheadedness, abdominal pain or discomfort, nausea vomiting or diarrhea Physical Exam Exam: Exam: CONST: Alert and oriented, in NAD. Well nourished. In good spirits HEENT: Normocephalic, atraumatic, MMM, Eyes clear, Neck supple RESP: Lungs clear, RRR even and regular HEART:,RRR, S1, S2. No edema GI:Abdomen Soft NT, ND. + BS times four :Deferred SKIN: Warm dry and intact, no visible lesions or rashes NEURO:CN II-XII Intact bilaterally, Sensation intact. Answering questions without difficulty, speech slightly slurred and hard to understand at times. Able to make needs known PSYCH: Normal affect Vital Signs: Vital Signs: Last Vital Signs Temp 97.2 F 12/14/24 20:00 Pulse 96 12/14/24 20:00 Resp 16 12/14/24 20:00 BP 123/76 12/14/24 20:00 Pulse Ox 94 12/14/24 20:00 O2 Del Method Room Air 12/14/24 20:00 BMI result Body Mass Index 33.9 Objective Data Active Medications Acetaminophen (Acetaminophen 325 Mg Tablet) 650 mg PO Q6H PRN PRN Reason: Headache/Pain, Scale 1-10 Last Admin: 12/14/24 10:01 Dose: 650 mg Documented By: MARY Al Hydroxide/Mg Hydroxide (Magnesium Hydrox/Alum Hydrox 30 Ml Oral.Susp) 30 ml PO Q6H PRN PRN Reason: Heartburn/Nausea Diazepam (Diazepam 2 Mg Tablet) 3 mg PO BID [facility] Last Admin: 12/14/24 20:51 Dose: 3 mg Documented By: SHANNON Divalproex Sodium (Divalproex Sodium Er 500 Mg Tab.Er.24h) 1,000 mg PO BEDTIME [facility] Last Admin: 12/14/24 20:51 Dose: 1,000 mg Documented By: SHANNON Divalproex Sodium (Divalproex Sodium 250 Mg Tablet.Dr) 250 mg PO DAILY@1100 [facility] Last Admin: 12/14/24 11:35 Dose: 250 mg Documented By: MARY Divalproex Sodium (Divalproex Sodium Er 250 Mg Tab.Er.24h) 250 mg PO BEDTIME [facility] Last Admin: 12/14/24 20:51 Dose: 250 mg Documented By: SHANNON Docusate Sodium (Docusate Sodium 100 Mg Capsule) 100 mg PO BID PRN PRN Reason: Constipation Last Admin: 12/06/24 06:55 Dose: 100 mg Documented By: NANCY Docusate Sodium (Docusate Sodium 100 Mg Capsule) 100 mg PO BID [facility] Last Admin: 12/14/24 20:51 Dose: 100 mg Documented By: SHANNON Finasteride (Finasteride 5 Mg Tablet) 5 mg PO DAILY [facility] Last Admin: 12/14/24 08:33 Dose: 5 mg Documented By: MARY Hydroxyzine HCl (Hydroxyzine Hcl 25 Mg Tablet) 25 mg PO Q6H PRN PRN Reason: mild anxiety Last Admin: 12/10/24 14:34 Dose: 25 mg Documented By: BEULAH Magnesium Citrate (Magnesium Citrate 300 Ml Solution) 300 ml PO DAILY PRN PRN Reason: constipation Magnesium Hydroxide (Milk Of Magnesia 30 Ml Oral.Susp) 30 ml PO DAILY PRN PRN Reason: Constipation Last Admin: 12/11/24 02:02 Dose: 30 ml Documented By: RAMILA Metformin HCl (Metformin Hcl Er 500 Mg Tab.Er.24h) 500 mg PO BIDWM [facility] Last Admin: 12/14/24 16:33 Dose: 500 mg Documented By: MARY Metoprolol Tartrate (Metoprolol Tartrate 12.5 Mg Halftab) 12.5 mg PO BID [facility]; Protocol Last Admin: 12/14/24 20:51 Dose: 12.5 mg Documented By: SHANNON Nicotine Polacrilex (Nicotine Polacrilex 2 Mg Gum) 4 mg BUCCAL Q2H PRN PRN Reason: Nicotine Cravings Olanzapine (Olanzapine 5 Mg Tablet) 5 mg PO TID PRN PRN Reason: agitation Last Admin: 12/13/24 12:58 Dose: 5 mg Documented By: NEGRO Olanzapine (Olanzapine 10 Mg Tablet) 10 mg PO BEDTIME [facility] Last Admin: 12/14/24 20:52 Dose: 10 mg Documented By: SHANNON Omeprazole (Omeprazole 20 Mg Capsule.Dr) 20 mg PO DAILY@0630 [facility] Last Admin: 12/15/24 06:11 Dose: 20 mg Documented By: SHANNON Senna (Sennosides 8.6 Mg Tablet) 17.2 mg PO BEDTIME [facility] Last Admin: 12/14/24 20:52 Dose: 17.2 mg Documented By: SHANNON Tamsulosin HCl (Tamsulosin Hcl 0.4 Mg Capsule) 0.4 mg PO BEDTIME [facility] Last Admin: 12/14/24 20:50 Dose: 0.4 mg Documented By: SHANNON Tramadol HCl (Tramadol Hcl 50 Mg Tablet) 25 mg PO Q6H PRN PRN Reason: Moderate pain Last Admin: 12/14/24 16:33 Dose: 25 mg Documented By: MARY Trazodone HCl (Trazodone Hcl 50 Mg Tablet) 50 mg PO BEDTIME MRX1 PRN PRN Reason: Insomnia Last Admin: 12/11/24 02:11 Dose: 50 mg Documented By: RAMILA Vitamin D (Cholecalciferol (Vitamin D3) 25 Mcg Tablet) 25 mcg PO DAILY [facility] Last Admin: 12/14/24 08:31 Dose: 25 mcg Documented By: MARY Labs 12/10/24 21:06 12/14/24 10:17 Labs: Laboratory Results - last 24 hr 12/14/24 12/15/24 10:17 06:15 Anion Gap 13 Estim Creat Clear Calc 73.1 Estimated GFR > 60 POC Glucose 88 Random Glucose 135 H Calcium 9.2 Total Bilirubin 0.4 AST 32 ALT 28 Alkaline Phosphatase 47 Total Protein 6.[address] scan - abdomen: Radiologist's impression: Impressions Renal Ultrasound 12/14/24 14:12 IMPRESSION: Enlarging mass in the interpolar region of the right kidney. Given the patient's history of prior renal cell carcinoma, renal protocol CT is recommended. Findings were sent to Pau Springer NP by secure text message on 12/14/2024 at 2:37 PM. Electronically signed by: Amilcar Esquivel MD 12/14/2024 02:38 PM EDT RP Renal CT 12/14/24 15:34 IMPRESSION: There appear to be 2 enhancing masses in the equatorial region of the right kidney. Both are concerning for renal cell carcinoma. There is a lesion laterally, and there is a lesion medially that was previously treated with cryoablation. Hepatic steatosis. Fleischner guidelines were followed. Electronically signed by: Alton Kim MD 12/14/2024 04:33 PM EDT RP Assessment and Plan (1) BPH w urinary obs/LUTS: Status: Acute (2) Flank pain: Status: Acute (3) Renal mass: Status: Acute Plan 64-year-old male with a past medical history of schizoaffective disorder, bipolar type, depression, renal cell carcinoma seizure disorder, type 2 diabetes, hypertension, BPH, and history of esophageal stricture initially presents to the ED with shortness of breath, his chest x-ray was negative, and he had unusual behavioral pattern responding to internal stimuli. He was admitted to inpatient psych for further care. Seen today for follow up tachycardia and flank pain. Schizoaffective disorder, bipolar type/Depression/auditory hallucinations/delusions Treatment per psychiatric team Flank pain/Renal mass concerning for Renal carcinoma/BPH/Urinary retention/History of renal cell carcinoma Labs stable, no evidence of renal or liver insult UA for C&S pending, Urine for cytology pending Continue bladder scans and treatment for constipation. Ultram 25 mg q.6 hours p.r.n. moderate pain Continue Proscar and Flomax Urology consult pending Bladder scan Q 6 hours SC greater than 350 Sinus tach Improved, metoprolol restarted at lower dose. Seizure disorder Continue Depakote Seizure precautions History of esophageal stricture Seen by [employer] Recommendations to downgrade diet to NDD3 with thin liquids Type 2 diabetes Continue with metformin Recent A1c 7.6 Hypertension Continue Metoprolol 12.5 mgs BID Blood pressure stable. Thank you for allowing me to participate in the care of this patient. Will follow as needed, please notify medical provider with any changes in condition or concerns Quality Stroke Does the patient have a stroke diagnosis?: No VTE Prior VTE?: No VTE Risk Level:: Medical - low VTE Device Contraindication: Treatment Not Indicated VTE Drug Contraindication: Treatment Not Indicated
[2024-12-15] MEDS: Metoprolol Tartrate 12.5 MG HALFTAB PO ×2 (09:10→20:40)
--- NOTE | 2024-12-15 10:43 | PM.UROCN ---
History of Present Illness Consult details Consult date: 12/15/24 Narrative: CC: Right renal lesions 64-year-old male known to Urology Prior cryotherapy 2018 right renal lesion Presentation through emergency department for shortness of breath. Patient found to be incontinent and nonsensical at presentation Admitted to psycho geriatrics Imaging performed for right flank pain CT with contrast shows possible new lesion right upper pole kidney and ill-defined lesion mid renal with question of recurrence Do enhance on postcontrast Both do looked accessible for potential ablation We will review with intervention on Radiology Patient has poorly controlled diabetes with HbA1c 7.6, creatinine 1.1 On finasteride for BPH. Would add tamsulosin. Review of Systems Constitutional: Constitutional: Reports as per HPI and Reports no additional constitutional complaints Cardiovascular: Cardiovascular: Reports as per HPI and Reports no additional cardiovascular complaints Respiratory: Respiratory: Reports as per HPI and Reports no additional respiratory complaints Gastrointestinal: Gastrointestinal: Reports as per HPI and Reports no additional gastrointestinal complaints Genitourinary: Genitourinary: Reports as per HPI Musculoskeletal: Musculoskeletal: Reports no additional musculoskeletal complaints and Reports as per HPI Neurologic: Reports system reviewed and no additional complaints, except as documented and Reports as per HPI [facility] Past Medical History Medical History (Updated 12/14/24 @ 14:46 by Pau Springer DNP) Feeding by G-tube Bilateral cataracts Schizoaffective disorder, bipolar type Syncope Seizure Paraneoplastic syndrome Chronic headaches Colon cancer Hyperammonemia Esophageal stricture Encephalopathy Renal cell carcinoma Anemia Hernia Depression HTN (hypertension) Schizophrenia GERD (gastroesophageal reflux disease) Surgical History Surgical History Hx of cataract extraction History of esophagogastroduodenoscopy (EGD) H/O colonoscopy History of left inguinal hernia repair H/O hemicolectomy Social History Social History Household Members: None Housing: Apartment Do you presently have visiting nurse or other home services: Yes (delivers meds twice a day. Attends a Day Program.) Alcohol intake: never Comment: incoherent Patient Tobacco Use Status: Never used Tobacco Smoked in Last 30 Days: No e-Cigarette/Vaping Use: Never Used Use of substances other than those prescribed or required for medical reasons: No Currently Displaying Signs/Symptoms of Drug Intoxication Withdrawal: No Have you been hit, kicked, punched, or otherwise hurt by someone within the past year? If so, by whom?: No (unknown. His response was incomprensible.) Do you feel safe in your current relationship?: No Current Relationship Is there a partner from a previous relationship who is making you feel unsafe now?: No Are you made to feel afraid or neglected: No Advance Directives: No Advance Directives Information Provided: No Do you have thoughts of harming others: None Do you have a plan to hurt others: No Plan Recently lost weight without trying: No How much weight loss: Not applicable Eating poorly because of decreased appetite: No Nutrition screen score: 0 Nutrition Risks: No Nutritional Risk Poor oral hygiene: Yes (almost toothless) service: No Sexual orientation: Unable to collect Meds Allergies Allergy/AdvReac Type Severity Reaction Status Date / Time haloperidol (From HALDOL) Allergy Unknown UNKNOWN Verified 12/01/24 22:33 adhesive tape AdvReac Unknown Rash Verified 12/01/24 22:33 Helidac Allergy Unknown seizure Uncoded 12/01/24 22:33 and stiffness Active Medications: Current Medications Acetaminophen (Acetaminophen 325 Mg Tablet) 650 mg PO Q6H PRN PRN Reason: Headache/Pain, Scale 1-10 Last Admin: 12/14/24 10:01 Dose: 650 mg Al Hydroxide/Mg Hydroxide (Magnesium Hydrox/Alum Hydrox 30 Ml Oral.Susp) 30 ml PO Q6H PRN PRN Reason: Heartburn/Nausea Diazepam (Diazepam 2 Mg Tablet) 3 mg PO BID [facility] Last Admin: 12/15/24 09:11 Dose: 3 mg Divalproex Sodium (Divalproex Sodium Er 500 Mg Tab.Er.24h) 1,000 mg PO BEDTIME [facility] Last Admin: 12/14/24 20:51 Dose: 1,000 mg Divalproex Sodium (Divalproex Sodium 250 Mg Tablet.Dr) 250 mg PO DAILY@1100 [facility] Last Admin: 12/14/24 11:35 Dose: 250 mg Divalproex Sodium (Divalproex Sodium Er 250 Mg Tab.Er.24h) 250 mg PO BEDTIME [facility] Last Admin: 12/14/24 20:51 Dose: 250 mg Docusate Sodium (Docusate Sodium 100 Mg Capsule) 100 mg PO BID PRN PRN Reason: Constipation Last Admin: 12/06/24 06:55 Dose: 100 mg Docusate Sodium (Docusate Sodium 100 Mg Capsule) 100 mg PO BID [facility] Last Admin: 12/15/24 09:10 Dose: 100 mg Finasteride (Finasteride 5 Mg Tablet) 5 mg PO DAILY [facility] Last Admin: 12/15/24 09:10 Dose: 5 mg Hydroxyzine HCl (Hydroxyzine Hcl 25 Mg Tablet) 25 mg PO Q6H PRN PRN Reason: mild anxiety Last Admin: 12/10/24 14:34 Dose: 25 mg Magnesium Citrate (Magnesium Citrate 300 Ml Solution) 300 ml PO DAILY PRN PRN Reason: constipation Magnesium Hydroxide (Milk Of Magnesia 30 Ml Oral.Susp) 30 ml PO DAILY PRN PRN Reason: Constipation Last Admin: 12/11/24 02:02 Dose: 30 ml Metformin HCl (Metformin Hcl Er 500 Mg Tab.Er.24h) 500 mg PO BIDWM [facility] Last Admin: 12/15/24 09:12 Dose: 500 mg Metoprolol Tartrate (Metoprolol Tartrate 12.5 Mg Halftab) 12.5 mg PO BID [facility]; Protocol Last Admin: 12/15/24 09:10 Dose: 12.5 mg Nicotine Polacrilex (Nicotine Polacrilex 2 Mg Gum) 4 mg BUCCAL Q2H PRN PRN Reason: Nicotine Cravings Olanzapine (Olanzapine 5 Mg Tablet) 5 mg PO TID PRN PRN Reason: agitation Last Admin: 12/13/24 12:58 Dose: 5 mg Olanzapine (Olanzapine 10 Mg Tablet) 10 mg PO BEDTIME [facility] Last Admin: 12/14/24 20:52 Dose: 10 mg Omeprazole (Omeprazole 20 Mg Capsule.Dr) 20 mg PO DAILY@0630 [facility] Last Admin: 12/15/24 06:11 Dose: 20 mg Senna (Sennosides 8.6 Mg Tablet) 17.2 mg PO BEDTIME [facility] Last Admin: 12/14/24 20:52 Dose: 17.2 mg Tamsulosin HCl (Tamsulosin Hcl 0.4 Mg Capsule) 0.4 mg PO BEDTIME [facility] Last Admin: 12/14/24 20:50 Dose: 0.4 mg Tramadol HCl (Tramadol Hcl 50 Mg Tablet) 25 mg PO Q6H PRN PRN Reason: Moderate pain Last Admin: 12/15/24 09:15 Dose: 25 mg Trazodone HCl (Trazodone Hcl 50 Mg Tablet) 50 mg PO BEDTIME MRX1 PRN PRN Reason: Insomnia Last Admin: 12/11/24 02:11 Dose: 50 mg Vitamin D (Cholecalciferol (Vitamin D3) 25 Mcg Tablet) 25 mcg PO DAILY [facility] Last Admin: 12/15/24 09:10 Dose: 25 mcg Home Medications ?Medication ?Instructions ?Recorded ?Confirmed ?Last Taken ?Type docusate sodium 100 mg capsule 100 mg PO BID PRN Constipation 07/30/23 12/01/24 05/01/24 07:00 History olanzapine 10 mg tablet 10 mg PO DAILY 12/02/24 12/02/24 Unknown History Physical Exam Vital Signs: Vital Signs: Last Vital Signs Temp 97.2 F 12/14/24 20:00 Pulse 96 12/14/24 20:00 Resp 16 12/14/24 20:00 BP 123/76 12/14/24 20:00 Pulse Ox 94 12/14/24 20:00 O2 Del Method Room Air 12/14/24 20:00 BMI result Body Mass Index 33.9 Const: General: cooperative, healthy appearing, comfortable and no acute distress Orientation/consciousness: patient oriented x3 HEENT: Face and sinus: Yes normal facial exam Mouth: moist mucous membranes Neck: Neck: Yes normal visual inspection, Yes full ROM and Yes trachea midline Chest: Chest palpation & inspection: normal inspection of the chest Resp: Effort & Inspection: normal respiratory effort, able to speak in complete sentences and no respiratory distress GI: Inspection: Yes normal to inspection Back/Spine/Pelvis: Cervical Spine: normal cervical lordosis Thoracic/Lumbar Spine: thoracic and lumbar spine normal to inspection Skin: General skin exam: no rashes or lesions noted Neuro: General: patient oriented x3, tone normal and moves all extremities Extrem: General: Yes normal to inspection and Yes capillary refill normal Results Labs 12/10/24 21:06 12/14/24 10:17 Labs: Abnormal lab results 12/14/24 Range/Units 10:17 Random Glucose 135 H (60-115) mg/dL BMP 12/14/24 10:17 Sodium 142 Potassium 4.6 Chloride 108 Carbon Dioxide 26 BUN 11 Creatinine 1.08 Calcium 9.2 Liver Function 12/14/24 Range/Units 10:17 Total Bilirubin 0.4 (0.0-1.0) mg/dL AST 32 (5-37) U/L ALT 28 (0-40) U/L Alkaline Phosphatase 47 (39-117) U/L Albumin 3.8 (3.5-5.0) g/dL Urine 12/02/24 Range/Units 11:56 Urine Color Yellow Urine Appearance Clear Urine pH 7.5 (5.0-9.0) Ur Specific [place] 1.010 (1.005-1.025) Urine Protein Negative (Neg-Trace) mg/dL Urine Glucose (UA) Negative (Negative) mg/dL All other labs normal. Assessment and Plan (1) Renal cell carcinoma: Status: Acute Plan Question of recurrent renal lesions Imaging reviewed Appears accessible for repeat ablation Case discussed with interventional radiology - pending assessment Procedures Date of Service Date of Service: 12/15/24
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
[2024-12-15 13:31] LABS: Appearance Urine Clear; Glucose Urine UA Negative (Negative); PH 8.0 (5.0-9.0); Specific Gravity - Urine 1.010 (1.005-1.025); UMIC TRIGGER UACC YES
[2024-12-15 13:34] LABS: UACC Culture Trigger YES
--- NOTE | 2024-12-15 14:11 | PC.NURSE ---
Seen by medical receied new order for Tramadol for his kidney pain, Urology has been consulted due to the results of his Renal CT and ultrasound. His u/a is showing leukocytes and WBC waiting on urine culture. Bladder scan neg after his voiding.
--- NOTE | 2024-12-15 14:13 | MHC.SL.SWA ---
Speech Pathologist Impression: Risk of Aspiration Due to: Dysphasia Diet Status: Recommend upgrade to REGULAR, continue on THIN liquids, pills whole with puree Liquid Consistency and Strategies for Safe Swallow: Liquid Intake Recommendation: Thin Liquid Intake Strategies: Small Sips Solid Food Consistency: Dietary Recommendations: Regular Additional Modifications to Solid Foods: Patient requires cuing to keep bites small, may try to pack mouth or take too large bites, and gulp liquids. Encourage alternating liquids and solids. Oral Medication Intake: Whole with Puree Please contact the pharmacy regarding appropriate crushable or liquid drug formulations that are available whenever modified delivery is recommended. Compensatory Strategies and Precautions to be Taken for Safe Swallow: Sitting Upright (90 deg) Liquids from Cup Liquids from Straw Small Bites and Sips Alternate Liquids/Solids Rate of Ingestion Change Supervision While Eating and Drinking for Safe Swallow: Intermittent Supervision Foods to Avoid: Too large pieces of food, Difficult to chew solids. Swallowing Recommended Treatments: Recommendation for Speech: Inpatient Speech Therapy Comment: Patient seen at lunch today. Patient refused hot items on tray today (ground meatloaf with gravy, mashed potatoes) described them as disgusting ; but accepted and ate soup and yogurt and jello which came with meal, which patient ate independently. Patient also drank juice that came with meal with no difficulty. No attempts to wretch food back up noted today, patient remained mostly calm and pleasant during meal. Patient asked for ensure shake, forensic anthropologist attempted to see if there was a spare in the kitchen with no luck. Given patient reduced urge to regurgitate food just eaten, and patient's rejection of food consistency, recommend trial of REGULAR diet to provide greater options, assess toleration. Recommend upgrade to REGULAR, continue on THIN liquids, pills whole with puree. HIM CLERK notified medical team of recommendation, upgraded diet in [facility], plan is to observe meal for toleration. Frequency/Duration: Date Range for Service Req: Timeline to reassess: Quad Stayer Clinican/Clinical Fellow: No Supervisory Statement: I have reviewed and agree with the student/clinical fellow's documentation: N/A Speech Language Pathologist: Leighann Burns M.A., [facility]-HIM CLERK
[2024-12-15 20:00] VITALS: BP 117/73; PULSE 83; RESP 18; TEMP 36.3; O2SAT 95
[2024-12-15] MEDS: Divalproex Sodium ER 250 MG TAB.ER.24H PO (20:41)
[2024-12-16 06:45] LABS: Glucose, Whole Blood 119 mg/dL (60-115)
[2024-12-16 08:00] VITALS: BP 113/70; PULSE 92; TEMP 36.2; O2SAT 90
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
[2024-12-16] MEDS: Metoprolol Tartrate 12.5 MG HALFTAB PO ×2 (09:52→20:51)
--- NOTE | 2024-12-16 15:03 | MHC.SLORD ---
Speech Language Pathology Order Status: Pt not seen for direct dysphagia tx today. Pt is tolerating diet as ordered, SHIPPING CLERK/ADMIN to followup x1.
[2024-12-16 20:00] VITALS: BP 127/71; PULSE 88; RESP 16; TEMP 36.5; O2SAT 93
[2024-12-16] MEDS: Divalproex Sodium ER 250 MG TAB.ER.24H PO (20:52)
[2024-12-17 08:00] VITALS: BP 117/78; PULSE 96; RESP 16; TEMP 36.6; O2SAT 95
[2024-12-17 08:02] LABS: Creatinine Clr Calc Pharmacy 79.0; Estimated Glomerular Filt Rate > 60
[2024-12-17 08:08] LABS: Glucose, Whole Blood 167 mg/dL (60-115)
[2024-12-17] MEDS: Metoprolol Tartrate 12.5 MG HALFTAB PO ×2 (08:11→20:57)
[2024-12-17 10:10] VITALS: BMI 32.4
--- NOTE | 2024-12-17 15:03 | MHC.SL.SWA ---
Speech Pathologist Impression: Risk of Aspiration Due to: Dysphasia Diet Status: Recommend continue on REGULAR diet with THIN liquids, pills whole with puree. Continue periodic supervision with cuing (e.g. one bite at time) during meal. Liquid Consistency and Strategies for Safe Swallow: Liquid Intake Recommendation: Thin Liquid Intake Strategies: Small Sips Solid Food Consistency: Dietary Recommendations: Regular Additional Modifications to Solid Foods: Patient requires cuing to keep bites small, may try to pack mouth or take too large bites, and gulp liquids. Encourage alternating liquids and solids. Oral Medication Intake: Whole with Puree Please contact the pharmacy regarding appropriate crushable or liquid drug formulations that are available whenever modified delivery is recommended. Compensatory Strategies and Precautions to be Taken for Safe Swallow: Sitting Upright (90 deg) Liquids from Cup Liquids from Straw Small Bites and Sips Alternate Liquids/Solids Rate of Ingestion Change Supervision While Eating and Drinking for Safe Swallow: Intermittent Supervision Foods to Avoid: Too large pieces of food, Difficult to chew solids. Swallowing Recommended Treatments: Recommendation for Speech: Inpatient Speech Therapy Comment: Patient seen at lunch today. Patient had ordered a variety of items from the regular menu, including mac and cheese, carrots, a soft bread sandwich and a variety of puddings, yogurts and fruit cups. Patient again quite cheerful today, greeted OIL FIELD PUMPER with a handshake, and reported he had been eating more and doing fine with diet options. Patient attempted carrots on tray, which looked mostly raw v. cooked, attempted to chew, but then said I can't eat this and spat out hard bits of carrots. Patient then ate softer textured mac and cheese, requiring occasional reminders to swallow bite before adding more food to mouth. Patient occasionally took sips of violet wandy from cup while eating meal, appeared to be managing well. Patient now on least restrictive diet, RN reports no incidents of coughing, regurgitating food since upgrade. Patient continues with some risk behaviors of packing mouth, over eating, however they can be managed with supervision and occasional cuing at meals. Recommend continue on REGULAR diet with THIN liquids, pills whole with puree. Continue periodic supervision with cuing (e.g. one bite at time) during meal. OIL FIELD PUMPER will dc service, please re-contact if additional concerns arise. Frequency/Duration: Date Range for Service Req: Timeline to reassess: Curtain Stretcher Clinican/Clinical Fellow: No Supervisory Statement: I have reviewed and agree with the student/clinical fellow's documentation: N/A Speech Language Pathologist: Leighann Burns M.A., [facility] [facility]
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
[2024-12-17 19:50] VITALS: BP 114/72; PULSE 88; RESP 18; TEMP 36.2; O2SAT 94
[2024-12-17] MEDS: Divalproex Sodium ER 250 MG TAB.ER.24H PO (20:59)
[2024-12-18 09:19] VITALS: BP 117/77; PULSE 92; RESP 18; TEMP 36.1; O2SAT 95
[2024-12-18] MEDS: Metoprolol Tartrate 12.5 MG HALFTAB PO ×2 (09:28→20:58)
[2024-12-18 11:27] LABS: Glucose, Whole Blood 159 mg/dL (60-115)
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
[2024-12-18 20:00] VITALS: BP 136/79; PULSE 100; RESP 18; TEMP 36.6; O2SAT 97
[2024-12-18] MEDS: Divalproex Sodium ER 250 MG TAB.ER.24H PO (20:59)
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
[2024-12-19 08:00] VITALS: BP 116/75; PULSE 90; RESP 16; TEMP 36.2; O2SAT 95
[2024-12-19] MEDS: Metoprolol Tartrate 12.5 MG HALFTAB PO ×2 (08:55→20:49)
[2024-12-19 20:00] VITALS: BP 121/64; PULSE 92; RESP 16; TEMP 36.8; O2SAT 94
[2024-12-19] MEDS: Divalproex Sodium ER 250 MG TAB.ER.24H PO (20:49)
[2024-12-20 08:00] VITALS: BP 113/75; PULSE 89; RESP 16; TEMP 36.3; O2SAT 94
[2024-12-20] MEDS: Metoprolol Tartrate 12.5 MG HALFTAB PO ×2 (08:39→21:19)
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
[2024-12-20 20:00] VITALS: BP 106/64; PULSE 89; RESP 16; TEMP 36.3; O2SAT 93
[2024-12-20] MEDS: Divalproex Sodium ER 250 MG TAB.ER.24H PO (21:19)
[2024-12-21 07:50] VITALS: BP 106/60; PULSE 86; RESP 18; TEMP 36.5; O2SAT 95
[2024-12-21] MEDS: Metoprolol Tartrate 12.5 MG HALFTAB PO ×2 (08:07→21:45)
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
[2024-12-21 20:00] VITALS: PULSE 82; RESP 16; TEMP 36.2; O2SAT 95
[2024-12-21] MEDS: Divalproex Sodium ER 250 MG TAB.ER.24H PO (21:46)
[2024-12-22 08:43] VITALS: BP 113/62; PULSE 97; RESP 18; TEMP 36.2; O2SAT 93
[2024-12-22] MEDS: Metoprolol Tartrate 12.5 MG HALFTAB PO ×2 (08:45→20:50)
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
[2024-12-22 20:00] VITALS: BP 102/64; PULSE 90; RESP 16; TEMP 36.4; O2SAT 94
[2024-12-22] MEDS: Divalproex Sodium ER 250 MG TAB.ER.24H PO (20:49)
[2024-12-23 08:00] VITALS: BP 115/64; PULSE 79; RESP 16; TEMP 36.5; O2SAT 96
[2024-12-23] MEDS: Metoprolol Tartrate 12.5 MG HALFTAB PO ×2 (08:47→20:16)
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
[2024-12-23 20:00] VITALS: BP 119/66; PULSE 80; RESP 18; TEMP 36.7; O2SAT 93
[2024-12-23] MEDS: Divalproex Sodium ER 250 MG TAB.ER.24H PO (20:17)
[2024-12-24 08:00] VITALS: BP 112/71; PULSE 88; RESP 16; O2SAT 94
[2024-12-24 08:13] LABS: Creatinine Clr Calc Pharmacy 90.8; Estimated Glomerular Filt Rate > 60
[2024-12-24] MEDS: Metoprolol Tartrate 12.5 MG HALFTAB PO (08:27)
--- NOTE | 2024-12-24 09:29 | P.DS_ITS ---
DS: Providers Provider Date of Service: 12/24/24 Date of admission: 12/02/24 12:47 Date of discharge: 12/24/24 Primary care physician: Unknown Physician Consults: 12/11/24 14:59 Consult to Hospitalist Routine Comment: Consulting Provider: [facility] Reason For Exam: urinary retention. eval and treat. 12/11/24 15:14 Consult to Urology Routine Consulting Provider: [facility] Reason for consultation: Bladder retention 12/14/24 11:39 Consult to Hospitalist Routine Comment: Consulting Provider: [facility] Reason For Exam: right flank pain DS: Diagnosis Discharge Diagnosis (1) Schizoaffective disorder, bipolar type: Status: Acute (2) Renal cell carcinoma: Status: Acute (3) HTN (hypertension): Status: Acute (4) BPH w urinary obs/LUTS: Status: Acute (5) Diabetes: Status: Acute (6) Constipation: Status: Acute DS: Medications Discharge Medications Home Medications: Home Medications ?Medication ?Instructions ?Recorded ?Confirmed docusate sodium 100 mg capsule 100 mg PO BID PRN Const ipation 07/30/23 12/01/24 olanzapine 10 mg tablet 10 mg PO DAILY 12/02/2411/16 Previous Rx's ?Medication ?Instructions ?Recorded omeprazole 20 mg capsule,delayed 20 mg PO DAILY@0630 # 30 caps 06/01/20 release chlorpromazine 25 mg tablet 25 mg PO TID #90 tabs 12/10 cholecalciferol (vitamin D3) 25 25 mcg PO DAILY #30 ta bs 11/24/24 mcg (1,000 unit) tablet divalproex 250 mg tablet,delayed 250 mg PO DAILY #30 t abs 11/24/24 release divalproex 500 mg tablet,extended 1,000 mg (2 x 500 mg ) PO BEDTIME 11/24/24 release 24 hr #30 tabs finasteride 5 mg tablet 5 mg PO DAILY #30 tabs 11/24 metformin 500 mg tablet,extended 500 mg PO DAILY@1700 #30 tabs 11/24/24 release 24 hr metoprolol tartrate 25 mg tablet 25 mg PO BID #60 tabs 11/24/24 Mental Status Exam Mental Status Exam Narrative: Appearance: wearing hospital attire, disheveled, poor hygiene. Behavior: Calm and cooperative throughout the interview. enjoying the iPad and watching music videos Speech: normal speaking rate and slurred/imprecise speech, spontaneous Thought process: more organized, and goal-directed Thought content: mostly relevant conversation Mood: : good Affect:full range, congruent SI: denies HI: none expressed VH/AH: none expressed Delusions: none expressed Insight/judgment: Impaired insight and judgment Memory/cog: Alert, oriented x 4. concrete thinking. ACL 3.4 Data Data Completed and Pending Completed studies during hospitalization [Text1]: 12/18/24 12/24/24 11:15 07:10 Creatinine 0.85 Estim Creat Clear Calc 90.8 Estimated GFR > 60 POC Glucose 159 H 12/15/24 Unknown Urine clean catch - Clean Catch Midstream Urine Culture - Final Enterococcus faecalis Imaging Diagnostic Imaging Impressions KUB X-Ray 12/11/24 13:58 IMPRESSION: Abundant stool without intestinal obstruction pattern. Electronically signed by: Mani Hay MD 12/11/2024 02:18 PM EDT RP Renal Ultrasound 12/14/24 14:12 IMPRESSION: Enlarging mass in the interpolar region of the right kidney. Given the patient's history of prior renal cell carcinoma, renal protocol CT is recommended. Findings were sent to Pau Sprinegr NP by secure text message on 12/14/2024 at 2:37 PM. Electronically signed by: Amilcar Esquivel MD 12/14/2024 02:38 PM EDT RP Renal CT 12/14/24 15:34 IMPRESSION: There appear to be 2 enhancing masses in the equatorial region of the right kidney. Both are concerning for renal cell carcinoma. There is a lesion laterally, and there is a lesion medially that was previously treated with cryoablation. Hepatic steatosis. Fleischner guidelines were followed. Electronically signed by: Alton Kim MD 12/14/2024 04:33 PM EDT RP DS: Summary Hospital Course Hospital Course: 64-year-old male with psychiatric history of schizophrenia, auditory hallucinations, and delusions presents to [facility], via ambulance, yesterday for evaluation of shortness of breath. He was found to have inappropriate behavior and self-dialoguing. She was medically cleared and transferred to . On interview with this provider, patient notes that he called 911 because I needed help for my voice. He notes that he could not talk for a week. However, his voice recent now normal. He states that he lives alone and has been taking his medications as prescribed. He has a visiting nurse who sees him every day for medication administration. He walks to and from an adult daycare program Mondays through Saturdays. He has been sleeping well. Denies anxiety or depression. He denies SI/HI/AH/VH. He denies nicotine, illicit drugs, or alcohol use. UTox is negative. Ethanol level was not drawn. He offers no complaints and denies any symptoms at this time. He is known to [facility] and was last discharged on 11/23/2024 with similar presentation. Patient is seen at 10:30 on 12/03/2024. Past Psychiatric History: IP: Several. Cassie 06/03; [place] 2018, [facility] 10/2017; 12/2016 and 09/2015 and 10/2015. 2020 OP: [facility] Aura Rain NP. [facility] services [facility]- Hetal Enriquez- [phone]. Trials: [facility] [place] Review: Klonopin, Clozaril Haldol, Valium [place], Vraylar, [facility] COURSE On the unit, pt initially presented as labile, laughing inappropriately. Making some sexualized comments. He also had medical complaints including difficulty urinating, constipated and lastly he reported right flank pain. In terms of psych medications he was continued on depakote, olanzapine was decreased to 10mg po qhs due to concerns in terms increase constipation and urinary retention. His affect gradually presented as more organized with less sexualized comments and less inappropriate laughing. His language does become more clear but still has deficits in terms of sentence syntax and connection between ideas sometimes unrelated. No SI/HI. No aggression towards self or others. Pt was sleeping and eating well. He had a renal US which show recurrence of renal carcinoma. He was seen by urologist, Dr. Cummins who had treated him back in 2018 when he had renal carcinoma. He needs to follow up OP for further treatment. We had meeting with his OP team from [facility] and ACCS team. discussed that his baseline is very poor in terms of his ability to care for himself. He does not show capacity to make medical decisions in terms of showing understanding of current medical conditions, show appreciation of risks versus benefits of accepting or rejecting treatment as well as showing ability to reason and verbalize a decision, therefore, HCP has been invoked. OP resources working on transition him to prison. He did not have any episodes of disruptive behaviors nor need for restraints. He was taking medications as prescribed. Status at Discharge Cognitive/behavioral status at discharge: Pt with brighter affect, non labile. No SI/HI. No overt psychosis or delusions. sleeping and eating well. speech impairments do improve when he is psychiatrically more stable but still show deficits in sentence syntax and illogical connection of ideas. No aggression towards self or others. Time Spent with Patient Time attestation: Total time managing care of this patient today ___45_ minutes. Discharge Plan Discharge Anticipated Discharge Date/Time: 12/24/24 09:55 Patient Disposition: Home, Self-Care Discharge Diagnosis: schizoaffective disorder Referrals: [facility] ACCS Team [Other] - 12/24/24 Referral Note: Your [facility] clinician, outreach providers and peer computer support specialist Joshua Brown will meet with you as scheduled following discharge. Services will resume at time of discharge on 12/24. [facility] [Other] - 12/24/24 Referral Note: Your VNA services for SN and medication management will resume at time of discharge. [place] [facility] [employer]Zuleyma Sanabria [Other] - 01/13/25 8:50 am Referral Note: Your next appointment with Zuleyma is on 01/13/2025 8:50pm in office. Bryon Navarro [facility] career services manager [Other] - 3-5 Days Referral Note: You pillowcase cutter/animal care assistant from [facility] will contact you following discharge and will request nursing assessment for home care hours. Chriss Pham MD [Physician, Urology] - 02/02/25 1:45 pm Referral Note: Your follow-up appointment has been scheduled for Saturday02/02/25 at 1:45pm with Dr. Pham. Discharge Medications: New tamsulosin 0.4 mg Capsule 0.4 mg PO BEDTIME Qty: 30 0RF diazepam [Valium] 2 mg tablet 2 mg PO BID Qty: 60 0RF sennosides [Senna Lax] 8.6 mg Tablet 17.2 mg PO BEDTIME Qty: 60 0RF polyethylene glycol 3350 17 gram Powder In Packet 17 g PO DAILY Qty: 30 0RF olanzapine 10 mg Tablet 10 mg PO BEDTIME Qty: 30 0RF tramadol 50 mg Tablet 50 mg PO DAILY PRN (Reason: renal pain) Qty: 7 0RF divalproex 500 mg Tablet Extended Release 24 Hr 1,500 mg PO BEDTIME Qty: 90 0RF docusate sodium 100 mg Capsule 100 mg PO BID Qty: 60 0RF omeprazole 20 mg Capsule,Delayed Release(Dr/Ec) 20 mg PO DAILY@0630 Qty: 30 0RF metformin 500 mg Tablet Extended Release 24 Hr 500 mg PO BIDWM Qty: 30 0RF finasteride 5 mg Tablet 5 mg PO DAILY Qty: 30 0RF cholecalciferol (vitamin D3) 25 mcg (1,000 unit) Tablet 25 mcg PO DAILY Qty: 60 0RF Discontinued omeprazole 20 mg Capsule,Delayed Release(Dr/Ec) 20 mg PO DAILY@0630 Qty: 30 1RF olanzapine 10 mg tablet 10 mg PO DAILY docusate sodium 100 mg capsule 100 mg PO BID PRN (Reason: Constipation) divalproex 250 mg Tablet,Delayed Release (Dr/Ec) 250 mg PO DAILY Qty: 30 0RF chlorpromazine 25 mg Tablet 25 mg PO TID Qty: 90 0RF divalproex 500 mg Tablet Extended Release 24 Hr 1,000 mg PO BEDTIME Qty: 30 0RF metoprolol tartrate 25 mg Tablet 25 mg PO BID Qty: 60 0RF Protocol: Hold for SBP/HR < HOLD for SBP < : 90 HOLD for HR < : 60 metformin 500 mg Tablet Extended Release 24 Hr 500 mg PO DAILY@1700 Qty: 30 0RF finasteride 5 mg Tablet 5 mg PO DAILY Qty: 30 0RF cholecalciferol (vitamin D3) 25 mcg (1,000 unit) Tablet 25 mcg PO DAILY Qty: 30 0RF Discharge Orders: Discharge Order (Routine); Ordered 12/24/24 Ordered By: Pretty Barkley Diet: Regular diet Activity on Discharge: As tolerated Stand Alone Forms: Patient Portal Discharge page Print Language: Gabonese Care Plan Goals: 1. maintain mood 2. No aggression towards self or others 3. No SI/HI Health Concerns: Follow up with PCP Follow up with urology- renal mass Plan of Treatment: 1. Medication managed by his VNA. 2. Go to nearest ED or call 911 in event of emergency. Assessment: Pt with brighter, non labile affect. No SI/HI. No overt psychosis or delusions. Sleeping and eating well.
== END 2024-12-24 11:11 | disposition home or self-care (01) | DRG 885 ==
LOC: HO.ED 12-02 09:24 → HO.PM5 12-02 13:03 → HO.PGERI 12-08 14:57
PROVIDERS: Nurse Practitioner Family; Physician Assistant Medical; Psychiatry & Neurology Psychiatry; Admitting Provider Psychiatry & Neurology Psychiatry; Emergency Provider Student in an Organized Health Care Education/Training Program; Visit Provider Social Worker
DX: F25.0 Schizoaffective disorder, bipolar type (principal); C64.1 Malignant neoplasm of right kidney, except renal pelvis; G40.909 Epilepsy, unspecified, not intractable, without status epilepticus; I10 Essential (primary) hypertension; R00.0 Tachycardia, unspecified; K59.00 Constipation, unspecified; E11.9 Type 2 diabetes mellitus without complications; N40.1 Benign prostatic hyperplasia with lower urinary tract symptoms; R33.8 Other retention of urine; Z79.899 Other long term (current) drug therapy
CPT/HCPCS: 36415; 71045; 74018; 74178; 76775; 80048; 80053; 80061; 80076; 80164; 80307; 81001; 81003; 82140; 82565; 82803; 82947; 83036; 84443; 84484; 85025; 87086; 87088; 87186; 88112; 92526; 92610; 93005; 97161; 99285; Q9967; S9485

== ENCOUNTER → 2024-12-01 22:27 | Outpatient (BNV) | payer OTHER, SELFPAY | PROVIDERS: Admitting Provider Psychiatry & Neurology Psychiatry; Emergency Provider Student in an Organized Health Care Education/Training Program; Visit Provider Internal Medicine | DX: I45.10 Unspecified right bundle-branch block (principal) | CPT/HCPCS: 93010 ==

== ENCOUNTER → 2024-12-01 23:08 | Outpatient (BNV) | payer OTHER, SELFPAY | PROVIDERS: Emergency Provider Student in an Organized Health Care Education/Training Program; Visit Provider Radiology Diagnostic Radiology | DX: J98.11 Atelectasis (principal) | CPT/HCPCS: 71045 ==

== ENCOUNTER 2024-12-02 12:47 | Outpatient (BNV) | payer OTHER, SELFPAY | END 2024-12-14 14:12 | PROVIDERS: Admitting Provider Psychiatry & Neurology Psychiatry; Emergency Provider Student in an Organized Health Care Education/Training Program; Visit Provider Radiology Diagnostic Radiology | DX: N28.89 Other specified disorders of kidney and ureter (principal); K76.0 Fatty (change of) liver, not elsewhere classified | CPT/HCPCS: 74178; 76775 ==

== ENCOUNTER 2024-12-02 12:47 | Outpatient (BNV) | payer OTHER, SELFPAY | END 2024-12-14 11:56 | PROVIDERS: Admitting Provider Psychiatry & Neurology Psychiatry; Emergency Provider Student in an Organized Health Care Education/Training Program; Visit Provider Internal Medicine | DX: I45.10 Unspecified right bundle-branch block (principal); I25.2 Old myocardial infarction; R00.0 Tachycardia, unspecified | CPT/HCPCS: 93010 ==

== ENCOUNTER 2024-12-02 12:47 | Outpatient (BNV) | payer OTHER, SELFPAY | END 2024-12-11 13:58 | PROVIDERS: Admitting Provider Psychiatry & Neurology Psychiatry; Emergency Provider Student in an Organized Health Care Education/Training Program; Visit Provider Radiology Diagnostic Radiology | DX: K59.00 Constipation, unspecified (principal) | CPT/HCPCS: 74018 ==

== ENCOUNTER → 2024-12-02 12:47 | Outpatient (BNV) | payer OTHER, SELFPAY | PROVIDERS: Admitting Provider Psychiatry & Neurology Psychiatry; Emergency Provider Student in an Organized Health Care Education/Training Program; Visit Provider Nurse Practitioner Family | DX: N40.1 Benign prostatic hyperplasia with lower urinary tract symptoms (principal); N13.8 Other obstructive and reflux uropathy | CPT/HCPCS: 99221; 99231 ==

== ENCOUNTER → 2024-12-02 12:47 | Outpatient (BNV) | payer OTHER, SELFPAY | PROVIDERS: Admitting Provider Psychiatry & Neurology Psychiatry; Emergency Provider Student in an Organized Health Care Education/Training Program; Visit Provider Urology | DX: C64.9 Malignant neoplasm of unspecified kidney, except renal pelvis (principal) | CPT/HCPCS: 99222 ==

== ENCOUNTER → 2024-12-02 12:47 | Outpatient (BNV) | payer OTHER, SELFPAY | PROVIDERS: Admitting Provider Psychiatry & Neurology Psychiatry; Emergency Provider Student in an Organized Health Care Education/Training Program; Visit Provider Registered Nurse | DX: F25.0 Schizoaffective disorder, bipolar type (principal); I10 Essential (primary) hypertension; E11.9 Type 2 diabetes mellitus without complications | CPT/HCPCS: 90792; 99232 ==

== ENCOUNTER 2025-02-02 13:55 | Outpatient (AMB) | payer OTHER, SELFPAY ==
--- NOTE | 2025-02-02 14:00 | A.OFFVIS_ITS ---
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 He is a patient of Dr. Higginbotham. He is seen for the following urologic reasons - renal cancer - lower urinary tract symptoms Accompanied by school social worker Underwent recent imaging during hospital admission Appears to have metachronous recurrence Plan repeat a MRI scan in six-month Renal cancer - underwent cryotherapy December 2017 The renal mass was diagnosed incidentally, during evaluation for, back pain - had presented with paraneoplastic syndrome and increased psych symptoms Imaging included 07/03 , a CT (computed tomography) scan of the abdomen/pelvis with contrast - enhancing 2.4cm cortical lesion on the right side 07/04 , a renal ultrasound normal 07/05 , a renal ultrasound - stable, 01/04 renal ultrasound stable - 12/06 CT scan with stable evidence of cryotherapy area on right kidney - 10/07 CT scan with continued good evidence of cryotherapy on region of right kidney no further scan require Prior treatment(s) included 01/02 , cryotherapy. Staging of initial cancer T1a Planned therapeutic plan further surveillance with imaging and laboratory investigations appropriate for pathology findings and patient performance status. Lower Urinary Tract Symptoms: Rise in PSA Mild symptoms Current therapy finasteride Current visit is for further evaluation of, lower urinary tract symptoms. Current treatment includes medication - none. Prostate Symptom Score Moderate (9-19), Bother 3. Symptoms include frequency, weak stream, nocturia (>2), and are progressing. PSA January 2016 6, April 2016 4.3, September 2016 3.2 - 01/04 4.9, 12/06 0.85, 12/07 0.9 Prostate volume 30-50gm. psychiatric diagnosis Yes Long-term lithium with anti cholinergic side effects PFSH Medical History (Updated 01/01/25 @ 00:00 by Background Katelyn) Feeding by G-tube Bilateral cataracts Schizoaffective disorder, bipolar type Syncope Seizure Paraneoplastic syndrome Chronic headaches Colon cancer Hyperammonemia Esophageal stricture Encephalopathy Renal cell carcinoma Anemia Hernia Depression HTN (hypertension) Schizophrenia GERD (gastroesophageal reflux disease) Surgical History Hx of cataract extraction History of esophagogastroduodenoscopy (EGD) H/O colonoscopy History of left inguinal hernia repair H/O hemicolectomy Social History Household Members: None Housing: Apartment Do you presently have visiting nurse or other home services: Yes (delivers meds twice a day. Attends a Day Program.) Alcohol intake: never Comment: incoherent Patient Tobacco Use Status: Never used Tobacco e-Cigarette/Vaping Use: Never Used service: No Sexual orientation: Unable to collect Review of Systems Const Denies chills and Denies fever(s) Card Reports no additional complaints and Denies syncope Resp Denies cough GI Denies abdominal pain and Denies heartburn Reports as per HPI and Denies change in libido Neuro Denies syncope Psych Denies change in libido Endo Denies change in libido Physical Exam Const General: cooperative, healthy appearing, comfortable and no acute distress Orientation/consciousness: patient oriented x3 HEENT Face and sinus: Yes normal facial exam Mouth: moist mucous membranes Neck Neck: Yes normal visual inspection, Yes full ROM and Yes trachea midline Chest Chest palpation & inspection: normal inspection of the chest Resp Effort & Inspection: normal respiratory effort, able to speak in complete sentences and no respiratory distress GI Inspection: Yes normal to inspection Back/Spine/Pelvis Cervical Spine: normal cervical lordosis Thoracic/Lumbar Spine: thoracic and lumbar spine normal to inspection Skin General skin exam: no rashes or lesions noted Neuro General: patient oriented x3, gait normal, tone normal and moves all extremities Extrem General: Yes normal to inspection and Yes capillary refill normal Office Procedures Post Void Residual Post Residual Void Post Void Residual (PVR): 61 [id number] Void Residual by ultrasound Results AMB Urinalysis, Automated UA Leukoctes 0 Danita/uL Last Edit by JOVITA Fink on 02/02/25 14:20 UA Nitrite Negative Last Edit by Reyna Garcia, [facility] on 02/02/25 14:20 UA Urobilinogen 0.2 mg/dL Last Edit by Reyna Garcia, [facility] on 02/02/25 14:20 UA Protein 0 mg/dL Last Edit by Reyna Colon, [facility] on 02/02/25 14:20 UA pH 6.0 Last Edit by Reyna Colon, [facility] on 02/02/25 14:20 UA Blood 0 Neil/uL Last Edit by Reyna Colon, [facility] on 02/02/25 14:20 UA Specific [place] 1.015 Last Edit by Reyna Colon, [facility] on 02/02/25 14:2 0 UA Ketone Negative Last Edit by Reyna Garcia, [facility] on 02/02/25 14:20 UA Bilirubin 0 mg/dL Last Edit by Reyna Garcia, [facility] on 02/02/25 14:20 UA Glucose 0 mg/dL Last Edit by Reyna Garcia, [facility] on 02/02/25 14:20 Assessment & Plan Assessment & Plan (1) Renal cell carcinoma: Comment: Cryotherapy December 2017 had associated paraneoplastic syndrome with exacerbation of schizoaffective disorder which resolved with cryotherapy Code(s): C64.9 - Malignant neoplasm of unspecified kidney, except renal pelvis Category: Medical Plan Six-month follow-up repeat MRI Orders: Orders MR abdomen wo/w con 6 Months C64.9 - Malignant neoplasm of unspecified kidney, except renal pelvis Patient Instructions: This note is constructed using voice recognition software. While every effort has been made to ensure accuracy manager supply chain planning errors may have been included. Imaging studies, laboratory and physical exam results were discussed and reviewed in detail. No major barriers to patient understanding were identified. An opportunity to ask questions regarding the treatment plan was provided. All questions were answered. The patient expressed understanding and agreement with the above treatment plan. The patient is aware they should contact our office by phone for worsening of their current condition or the appearance of new urologic symptoms. Compliance is encouraged with any medications and followup testing that is ordered. It is a privilege to participate in the urologic care of your patient. If you have any questions or concerns regarding treatment for the above conditions, or other urologic issues, please do not hesitate to contact me. The office telephone contact is [phone]. Sincerely, Dr Chriss Pham MD, [facility] - Urology Compassionate Specialist Care for the Genitourinary System Coding Level of Care Code Est Pt Level 3 (83611) Complex EM visit Add On G2211 Diagnoses Renal cell carcinoma C64.9 CPT Codes Post Residual Void - PVR CPT Code: 15854-Civu Void Residual by ultrasound ([id number])
== END 2025-02-02 14:33 | disposition home or self-care (01) ==
LOC: HO.HUSH 13:56
PROVIDERS: Visit Provider Urology
DX: C64.9 Malignant neoplasm of unspecified kidney, except renal pelvis (principal)
CPT/HCPCS: 99213; G2211

== ENCOUNTER → 2025-02-02 13:55 | Outpatient (BNVA) | payer OTHER, SELFPAY | PROVIDERS: Visit Provider Urology | DX: C64.9 Malignant neoplasm of unspecified kidney, except renal pelvis (principal) | CPT/HCPCS: 51798; 99212 ==

== ENCOUNTER → 2025-03-13 13:15 | Outpatient (BNV) | payer OTHER, SELFPAY | PROVIDERS: Admitting Provider Nurse Practitioner Psychiatric/Mental Health; Emergency Provider Student in an Organized Health Care Education/Training Program; PCP Internal Medicine; Visit Provider Nurse Practitioner Psychiatric/Mental Health | DX: F25.0 Schizoaffective disorder, bipolar type (principal); I10 Essential (primary) hypertension; E11.9 Type 2 diabetes mellitus without complications; R56.9 Unspecified convulsions | CPT/HCPCS: 90792; 99232 ==

== ENCOUNTER → 2025-03-13 13:15 | Outpatient (BNV) | payer OTHER, SELFPAY | PROVIDERS: Admitting Provider Nurse Practitioner Psychiatric/Mental Health; Emergency Provider Student in an Organized Health Care Education/Training Program; Visit Provider Urology | DX: C64.9 Malignant neoplasm of unspecified kidney, except renal pelvis (principal); G98.8 Other disorders of nervous system; C80.1 Malignant (primary) neoplasm, unspecified | CPT/HCPCS: 99223 ==

== ENCOUNTER → 2025-03-13 13:15 | Outpatient (BNV) | payer OTHER, SELFPAY | PROVIDERS: Admitting Provider Nurse Practitioner Psychiatric/Mental Health; Emergency Provider Student in an Organized Health Care Education/Training Program; PCP Internal Medicine; Visit Provider Psychiatry & Neurology Psychiatry | DX: F25.0 Schizoaffective disorder, bipolar type (principal); I10 Essential (primary) hypertension; E11.9 Type 2 diabetes mellitus without complications; R56.9 Unspecified convulsions | CPT/HCPCS: 99231 ==

== ENCOUNTER → 2025-03-13 13:15 | Outpatient (BNV) | payer OTHER, SELFPAY | PROVIDERS: Admitting Provider Nurse Practitioner Psychiatric/Mental Health; Emergency Provider Student in an Organized Health Care Education/Training Program; Visit Provider Psychiatry & Neurology Neurology | DX: R41.82 Altered mental status, unspecified (principal) | CPT/HCPCS: 99223 ==

== ENCOUNTER → 2025-03-13 13:15 | Outpatient (BNV) | payer OTHER, SELFPAY | PROVIDERS: Admitting Provider Nurse Practitioner Psychiatric/Mental Health; Emergency Provider Student in an Organized Health Care Education/Training Program; PCP Internal Medicine; Visit Provider Nurse Practitioner Family | DX: R56.9 Unspecified convulsions (principal) | CPT/HCPCS: 99221 ==